=== PATIENT | male | born 1965 | race Caucasian/White ===

== ENCOUNTER 2018-05-13 14:54 | Emergency (ER) | payer OTHER ==
[2018-05-13 15:07] VITALS: BMI 19.5
--- NOTE | 2018-05-13 15:09 | PDOC ---
Rapid Medical Evaluation Chief Complaint: Pain Time Seen by Provider: 05/13/18 15:03 Medical Evaluation: Allergies Allergy/AdvReac Type Severity Reaction Status Date / Time aspirin Allergy Unknown Verified 05/13/18 15:03 phenobarbital Allergy Unknown Verified 05/13/18 15:03 05/13/18 15:06 Pt c/o: abdominal pain, hx colitis, no diarrhea, no fever, states "white cells are bad" pt on exam: vss, no abd pain, appears intoxicated, Pt ordered for: cbc, comp, lipase, mag, ua pt to proceed to the ED Discharge Disposition - Diagnosis Abdominal pain - Referrals - Patient Instructions - Post Discharge Activity
[2018-05-13 16:56] LABS: BASO % 0.7 % (0-2.0); EOS % 1.7 % (0-4.5); HEMATOCRIT 36.1 % (35.4-49); HEMOGLOBIN 12.3 GM/dL (11.7-16.9); LYMPH % 30.9 % (8-40); MCH 32.6 pg (25.7-33.7); MCHC 34.2 g/dl (32.0-35.9); MEAN CELL VOLUME 95.4 fl (80-96); MEAN PLT VOLUME 7.5 fl (7.5-11.1); NEUT % 57.7 % (42.8-82.8); PLATELET COUNT 282 K/MM3 (134-434); RBC 3.78 M/mm3 (4.00-5.60); RDW 12.9 % (11.9-15.9); WHITE BLOOD COUNT 8.5 K/mm3 (4.0-10.0)
[2018-05-13 17:22] LABS: ALBUMIN 3.2 g/dl (3.4-5.0); ANION GAP 10 MMOL/L (8-16); BILIRUBIN,TOTAL 0.5 mg/dL (0.2-1.0); BLOOD UREA NITROGEN 6 mg/dL (7-18); CALCIUM 8.3 mg/dL (8.5-10.1); CHLORIDE 101 mmol/L (98-107); CO2 28 mmol/L (21-32); CREATININE 0.6 mg/dL (0.7-1.3); GLUCOSE,RANDOM 96 mg/dL (74-106); LIPASE 58 U/L (73-393); MAGNESIUM 2.9 mg/dL (1.8-2.4); POTASSIUM 3.9 mmol/L (3.5-5.1); SGOT/AST 38 U/L (15-37); SGPT/ALT 40 U/L (12-78); SODIUM 139 mmol/L (136-145); TOT PROT 6.6 g/dl (6.4-8.2)
[2018-05-13 17:23] LABS: ALK PHOS 82 U/L (45-117)
[2018-05-13] MEDS ORDERED: FOLIC ACID INJECTION - 1 MG, THIAMINE HCL 100 MG, MULTIVIT INJECTION ADULT 10 ML in SOD... IVPB ONE (17:31)
[2018-05-13] MEDS ORDERED: ALBUTEROL SO4 2.5/IPRATROPIUM 0.5 INH SOL 3 ML VIAL.NEB. NEB ONE ×2 (17:31→17:40)
--- NOTE | 2018-05-13 17:38 | PDOC ---
History of Present Illness - General History Source: Patient, Old Records Exam Limitations: No Limitations - History of Present Illness Initial Comments: 05/13/18 18:25 The patient is a 52 year old male, with a significant past medical history of COPD, enlarged liver, colitis, and ETOH abuse, who presents to the ED complaining of abdominal pain and concerned of his enlarged liver. He notes that he was recently at [facility] for the same issue and has had multiple visits there as per patient. He notes that he had 3 beers today. He also notes that he wants to go to detox but does not want to go to the detox center at [facility] or [facility]. He states that his boss is friends with Dr. Pipe Roy and that his boss called Dr. Roy to see if Dr. Roy would take him under his service of he is admitted. The patient denies chest pain, shortness of breath, headache and dizziness. Denies fever, chills, nausea, vomiting, diarrhea or constipation. Denies dysuria , frequency, urgency and hematuria. Allergies: None Past surgical history: Bilateral hernia repair Social History: Alcohol abuse. Cigarette use (10 daily) <Jacob Keene - Last Filed: 05/13/18 18:25> <Nell Rosas - Last Filed: 05/13/18 19:27> - General Chief Complaint: Pain Stated Complaint: PAIN Time Seen by Provider: 05/13/18 15:03 Past History <Jacob Keene - Last Filed: 05/13/18 18:25> - Past Medical History COPD: Yes GI Disorders: Yes (colitis, enlarged liver) - Surgical History Abdominal Surgery: Yes (hernia bilat) - Suicide/Smoking/Psychosocial Hx Smoking History: Current every day smoker Have you smoked in the past 12 months: Yes Number of Cigarettes Smoked Daily: 10 Information on smoking cessation initiated: Yes 'Breaking Loose' booklet given: 05/13/18 Hx Alcohol Use: Yes (daily) Drug/Substance Use Hx: No Substance Use Type: Alcohol <Nell Rosas - Last Filed: 05/13/18 19:27> - Past Medical History Allergies/Adverse Reactions: Allergies Allergy/AdvReac Type Severity Reaction Status Date / Time aspirin Allergy Unknown Verified 05/13/18 15:03 phenobarbital Allergy Unknown Verified 05/13/18 15:03 Home Medications: Ambulatory Orders Albuterol Sulfate Inhaler - [Ventolin HFA Inhaler -] 1 - 2 inh PO QID PRN #1 inhaler 05/13/18 Azithromycin [Zithromax 250mg Tablets -] 250 mg PO UTDICT #6 tab 05/13/18 Prednisone [Deltasone] 40 mg PO DAILY #8 tablet 05/13/18 Review of Systems - Review of Systems Able to Perform ROS?: Yes Comments:: 05/13/18 18:25 GENERAL/CONSTITUTIONAL: No fever or chills. No weakness. HEAD, EYES, EARS, NOSE AND THROAT: No change in vision. No ear pain or discharge. No sore throat. GASTROINTESTINAL: (+) Abdominal pain. No nausea, vomiting, diarrhea or constipation. GENITOURINARY: No dysuria, frequency, or change in urination. CARDIOVASCULAR: No chest pain or shortness of breath. RESPIRATORY: No cough, wheezing, or hemoptysis. MUSCULOSKELETAL: No joint or muscle swelling or pain. No neck or back pain. SKIN: No rash NEUROLOGIC: No headache, vertigo, loss of consciousness, or change in strength/ sensation. ENDOCRINE: No increased thirst. No abnormal weight change. HEMATOLOGIC/LYMPHATIC: No anemia, easy bleeding, or history of blood clots. ALLERGIC/IMMUNOLOGIC: No hives or skin allergy. <Jacob Keene - Last Filed: 05/13/18 18:25> *Physical Exam - Vital Signs Last Vital Signs Temp Pulse Resp BP Pulse Ox 98.9 F 88 18 102/67 100 05/13/18 15:05 05/13/18 15:05 05/13/18 15:05 05/13/18 15:05 05/13/18 15:05 - Physical Exam Comments: 05/13/18 18:30 Constitutional: Awake, alert, oriented. No acute distress. Head: Normocephalic. Atraumatic Eyes: PERRL. EOMI. Conjunctivae are not pale. ENT: (+) Bad Dentician. Mucous membranes are moist and intact. Posterior pharynx without exudates or erythema. Uvula midline. Neck: Supple. Full ROM. No lymphadenopathy. Cardiovascular: Regular rate. Regular rhythm. S1, S2 regular. Distal pulses are 2+ and symmetric. Pulmonary/Chest: (+) Coarse breath sounds. No evidence of respiratory distress. Abdominal: (+) Palpable liver 2cm below ribs. Soft and non-distended. There is no tenderness. No rebound, guarding or rigidity. No organomegaly. Good bowel sounds. Back: No CVA tenderness. Musculoskeletal: No edema. No cyanosis. No clubbing. Full range of motion in all extremities. Nocalf tenderness. Radial/pedal pulses are intact and 2+ bilaterally Skin: Skin is warm and dry. No petechiae. No purpura. Neurological: Alert and oriented to person, place, and time. Cranial nerves II -XII are grossly intact. Normal speech. Strength is grossly symmetric. No sensory deficits. Psychiatric: Good eye contact. Normal interaction, affect and behavior. <Jacob Keene - Last Filed: 05/13/18 18:25> - Vital Signs Last Vital Signs Temp Pulse Resp BP Pulse Ox 98.9 F 88 18 102/67 100 05/13/18 15:05 05/13/18 15:05 05/13/18 15:05 05/13/18 15:05 05/13/18 15:05 <Nell Rosas - Last Filed: 05/13/18 19:27> ED Treatment Course - LABORATORY CBC & Chemistry Diagram: 05/13/18 17:40 05/13/18 16:33 - ADDITIONAL ORDERS Additional order review: Laboratory Results 05/13/18 05/13/18 17:40 16:33 Sodium 139 Potassium 3.9 Chloride 101 Carbon Dioxide 28 Anion Gap 10 BUN 6 L Creatinine 0.6 L Creat Clearance w eGFR > 60 Random Glucose 96 D Calcium 8.3 L Magnesium 2.9 H Total Bilirubin 0.5 AST 38 H D ALT 40 D Alkaline Phosphatase 82 Total Protein 6.6 Albumin 3.2 L Lipase 58 L Alcohol, Quantitative 43.88 H* 05/13/18 05/13/18 17:40 16:33 RBC 3.72 L 3.78 L MCV 96.5 H 95.4 MCHC 33.4 34.2 RDW 13.0 12.9 MPV 6.9 L 7.5 Neutrophils % 56.5 57.7 Lymphocytes % 31.9 30.9 D Monocytes % 9.0 9.0 Eosinophils % 2.1 1.7 Basophils % 0.5 0.7 - Medications Given in the ED: ED Medications Discontinued Medications Generic Name Dose Route Start Last Admin Trade Name Katia PRN Reason Stop Dose Admin Albuterol/Ipratropium 1 amp 05/13/18 17:31 05/13/18 17:49 Duoneb - NEB 05/13/18 17:32 1 amp ONCE ONE Administration <YeceniaJacobchioma Banda - Last Filed: 05/13/18 18:25> - LABORATORY CBC & Chemistry Diagram: 05/13/18 17:40 05/13/18 16:33 - ADDITIONAL ORDERS Additional order review: Laboratory Results 05/13/18 16:33 Sodium 139 Potassium 3.9 Chloride 101 Carbon Dioxide 28 Anion Gap 10 BUN 6 L Creatinine 0.6 L Creat Clearance w eGFR > 60 Random Glucose 96 D Calcium 8.3 L Magnesium 2.9 H Total Bilirubin 0.5 AST 38 H D ALT 40 D Alkaline Phosphatase 82 Total Protein 6.6 Albumin 3.2 L Lipase 58 L 05/13/18 16:33 RBC 3.78 L MCV 95.4 MCHC 34.2 RDW 12.9 MPV 7.5 Neutrophils % 57.7 Lymphocytes % 30.9 D Monocytes % 9.0 Eosinophils % 1.7 Basophils % 0.7 <Nell Rosas - Last Filed: 05/13/18 19:27> Medical Decision Making - Medical Decision Making 05/13/18 17:34 52yo male with alcohol use today presenting for alcohol detox and concern for alcoholic liver disease -also with a dry cough -Dr. Roy is Pulm for COPD -drank beers today -pt states he doesn't have a place to go -no abd pain -lungs with coarse bs -will give nebs for copd, will give banana bag -will obtain RUQ ultrasound and cxr -will discuss with Dr. Roy 05/13/18 19:22 pt feeling better requests to be discharged so he can go to detox at [facility]. offered detox at [facility], but pt states his step daughter works at [facility] [employer] and wants to go there case discussed with Dr. Roy who will see the paitent as an outpt will give gi for further eval of hepatomegaly discussed need to stop drinking will give steroids, azithro, albuterol [facility] d[facility] no coughing at this time pt stable for d/c to home <Nell Rosas - Last Filed: 05/13/18 19:27> *DC/Admit/Observation/Transfer - Attestations Scribe Attestion: 05/13/18 18:31 Documentation prepared by Jacob Keene, acting as medical cash poster for Nell Rosas DO <Jacob Keene - Last Filed: 05/13/18 18:25> - Discharge Dispostion Decision to Admit order: No - Attestations Physician Attestion: 05/13/18 19:26 I, Dr. Nell Rosas, DO, attest that this document has been prepared under my direction and personally reviewed by me in its entirety. I further attest, that it accurately reflects all work, treatment, procedures and medical decision -making performed by me. <Nell Rosas - Last Filed: 05/13/18 19:27> Diagnosis at time of Disposition: Abdominal pain, Hepatomegaly, COPD exacerbation, Alcohol use disorder - Discharge Dispostion Disposition: HOME Condition at time of disposition: Stable - Prescriptions Prescriptions: Albuterol Sulfate Inhaler - [Ventolin HFA Inhaler -] 1 - 2 inh PO QID PRN #1 inhaler PRN Reason: Shortness Of Breath Azithromycin [Zithromax 250mg Tablets -] 250 mg PO UTDICT #6 tab Prednisone [Deltasone] 40 mg PO DAILY #8 tablet - Referrals Referrals: He Kam DO [Staff Physician] - Pipe Roy MD [Staff Physician] - - Patient Instructions Printed Discharge Instructions: DI for Alcohol Abuse, DI for Chronic Obstructive Pulmonary Disease Additional Instructions: Please make an appointment to see both the electrode turner and finisher and the setter induction heating equipment. Please take all medications as prescribed. Please return to the ED with any further concerns or complaints. Please go to detox and stop drinking alcohol.
[2018-05-13 17:47] LABS: BASO % 0.5 % (0-2.0); EOS % 2.1 % (0-4.5); HEMATOCRIT 35.9 % (35.4-49); LYMPH % 31.9 % (8-40); MCH 32.2 pg (25.7-33.7); MCHC 33.4 g/dl (32.0-35.9); MEAN CELL VOLUME 96.5 fl (80-96); MEAN PLT VOLUME 6.9 fl (7.5-11.1); NEUT % 56.5 % (42.8-82.8); PLATELET COUNT 261 K/MM3 (134-434); RBC 3.72 M/mm3 (4.00-5.60); WHITE BLOOD COUNT 7.8 K/mm3 (4.0-10.0)
[2018-05-13] MEDS ORDERED: predniSONE 20 MG TABLET (UD) PO ONE (19:21)
[2018-05-13] MEDS ORDERED: AZITHROMYCIN 250 MG TABLET PO ONE (19:21)
[2018-05-13] MEDS ORDERED: AZITHROMYCIN 250 MG TABLET ONE (19:31)
[2018-05-13] MEDS ORDERED: predniSONE 20 MG TABLET (UD) ONE (19:31)
[2018-05-13 19:44] VITALS: BP 132/85; PULSE 86; TEMP 98.1
== END 2018-05-13 19:48 | disposition home or self-care (01) ==
LOC: JER 14:54
PROC: 3E0F7GC Introduction of Other Therapeutic Substance into Respiratory Tract, Via Natural or Artificial Opening (ICD-10-PCS; principal; 2018-05-13)
DX: J44.1 Chronic obstructive pulmonary disease with (acute) exacerbation (principal); R16.0 Hepatomegaly, not elsewhere classified; F10.10 Alcohol abuse, uncomplicated; F17.210 Nicotine dependence, cigarettes, uncomplicated; Z87.19 Personal history of other diseases of the digestive system; Y90.2 Blood alcohol level of 40-59 mg/100 ml
CPT/HCPCS: 36415; 71045-TC-FY; 76705-TC; 80053; 80307; 83690; 83735; 85025; 99283-25; J7030; J7620

== ENCOUNTER 2018-10-06 21:05 | Emergency (ER) | payer OTHER ==
--- NOTE | 2018-10-06 21:30 | PDOC ---
Rapid Medical Evaluation Time Seen by Provider: 10/06/18 21:25 Medical Evaluation: Allergies Allergy/AdvReac Type Severity Reaction Status Date / Time aspirin Allergy Unknown Verified 05/13/18 15:03 phenobarbital Allergy Unknown Verified 05/13/18 15:03 10/06/18 21:25 I have performed a brief in-person evaluation of this patient. The patient presents with a chief complaint of: Bleeding from nose, ears, also bleeding with urination and defecation. Pt is undomiciled, drinks a 12 pack a day. Also co mild chest tightness Pertinent physical exam findings: Diffuse bruising on upper extremities, pitichiae on upper extremties. (+)bruising inside the mouth. I have ordered the following: CBC, CMP, lytes, PT/PTT, type and screen, cardiac profile The patient will proceed to the ED for further evaluation 10/06/18 21:32 Discharge Disposition - Diagnosis Bleeding - Referrals - Patient Instructions - Post Discharge Activity
[2018-10-06 21:31] VITALS: TEMP 98.5; BMI 19.5
--- NOTE | 2018-10-06 21:45 | PDOC ---
Attending Attestation - HPI HPI: 10/06/18 22:23 The patient is a 53 year old male, with a significant past medical history of COPD, enlarged liver, colitis, and ETOH abuse, who presents to the emergency department with bleeding out of all orifices, with his most recent episode being yesterday. The patient is seeking alcohol detox. The patient reports his last drink was 4 hours ago. Patient went to [facility] and was discharged. The patient is unable to go to [facility]. Allergies: Aspirin, Phenobarbital Past surgical history: Bilateral hernia repair Social history: Reports alcohol use and tobacco use (10 cigarettes a day). - Physicial Exam PE: 10/06/18 22:23 Agrees with resident exam. <Anupama Garcia - Last Filed: 10/06/18 22:23> - Resident Resident Name: Junior Gaming - ED Attending Attestation I have performed the following: I have examined & evaluated the patient, The case was reviewed & discussed with the resident, I agree w/resident's findings & plan - Medical Decision Making 10/07/18 01:08 53-year-old male stating he was concerned he might be bleeding from his nose and rectum now states he was interested in detox but the ambulance would not bring him to [facility] Patient given Ativan 2 mg IV due to tremulousness There are no signs of bleeding at this time He'll be allowed to stay in the emergency department over night due to weather conditions and homelessness 10/07/18 01:10 <Berkley Kim - Last Filed: 10/07/18 01:10> Attestations - Attestations 10/06/18 22:24 Documentation prepared by Anupama Garcia, acting as emergency medical service manager for Berkley Kim DO, MD <Anupama Garcia - Last Filed: 10/06/18 22:23>
[2018-10-06] MEDS ORDERED: ALBUTEROL SO4 2.5/IPRATROPIUM 0.5 INH SOL 3 ML VIAL.NEB. NEB ONE ×2 (22:20→23:03)
--- NOTE | 2018-10-06 22:24 | PDOC ---
History of Present Illness - General Chief Complaint: Rectal Bleed Stated Complaint: SOB Time Seen by Provider: 10/06/18 21:25 History Source: Patient Exam Limitations: No Limitations - History of Present Illness Initial Comments: 10/06/18 22:23 Patient is a 53M with history of alcohol abuse, COPD, enlarged liver coming in today complaining of blood coming from his nose, ears, mouth and rectum. This started yesterday. Patient is unsure of how much blood came out today. Patient states that he had some bright red blood per rectum today and yesterday. Patient states that his last drink was 4 hours prior to arrival, and that he was trying to go to [facility] for a detox program. He states that he does not want to go to [facility]. Past History - Past Medical History Allergies/Adverse Reactions: Allergies Allergy/AdvReac Type Severity Reaction Status Date / Time aspirin Allergy Unknown Verified 05/13/18 15:03 phenobarbital Allergy Unknown Verified 05/13/18 15:03 Home Medications: Ambulatory Orders Albuterol Sulfate Inhaler - [Ventolin HFA Inhaler -] 1 - 2 inh PO QID PRN #1 inhaler 05/13/18 Azithromycin [Zithromax 250mg Tablets -] 250 mg PO UTDICT #6 tab 05/13/18 Prednisone [Deltasone] 40 mg PO DAILY #8 tablet 05/13/18 COPD: Yes GI Disorders: Yes (colitis, enlarged liver) - Surgical History Abdominal Surgery: Yes (hernia bilat) - Suicide/Smoking/Psychosocial Hx Smoking History: Never smoked Have you smoked in the past 12 months: No Number of Cigarettes Smoked Daily: 10 Information on smoking cessation initiated: No 'Breaking Loose' booklet given: 05/13/18 Hx Alcohol Use: Yes Drug/Substance Use Hx: No Substance Use Type: Alcohol Review of Systems - Review of Systems Comments:: 10/06/18 22:28 GENERAL/CONSTITUTIONAL: No fever or chills. No weakness. HEAD, EYES, EARS, NOSE AND THROAT: No change in vision. No sore throat. CARDIOVASCULAR: No chest pain or shortness of breath RESPIRATORY: No cough, wheezing, or hemoptysis. GASTROINTESTINAL: No nausea, vomiting, diarrhea or constipation. GENITOURINARY: No dysuria, frequency, or change in urination. MUSCULOSKELETAL: No joint or muscle swelling or pain. No neck or back pain. SKIN: No rash NEUROLOGIC: No headache, vertigo, loss of consciousness, or change in strength/ sensation. ALLERGIC/IMMUNOLOGIC: No hives or skin allergy. *Physical Exam - Vital Signs Last Vital Signs Temp Pulse Resp BP Pulse Ox 98.5 F 95 H 19 103/80 96 10/06/18 21:27 10/06/18 21:27 10/06/18 21:27 10/06/18 21:27 10/06/18 21:27 - Physical Exam Comments: 10/06/18 22:29 GENERAL: Awake, alert, and fully oriented, in no acute distress RECTAL: No blood, hemorrhoid, normal tone, brown stool HEAD: No signs of trauma, normocephalic, atraumatic EYES: PERRLA, EOMI, sclera anicteric, conjunctiva clear ENT: Auricles normal inspection, hearing grossly normal, nares patent, oropharynx clear without exudates. Moist mucosa NECK: Normal ROM, supple, no lymphadenopathy, JVD, or masses LUNGS: No distress, speaks full sentences, clear to auscultation bilaterally HEART: Regular rate and rhythm, normal S1 and S2, no murmurs, rubs or gallops, peripheral pulses normal and equal bilaterally. ABDOMEN: Soft, nontender, normoactive bowel sounds. No guarding, no rebound. No masses EXTREMITIES: Normal inspection, Normal range of motion, no edema. No clubbing or cyanosis. NEUROLOGICAL: Cranial nerves II through XII grossly intact. Normal speech, normal gait, no focal sensorimotor deficits. Tremulous SKIN: Warm, Dry, multiple skin excoriations Moderate Sedation - Procedure Monitoring Vital Signs: Procedure Monitoring Vital Signs Temperature 98.5 F 10/06/18 21:27 Pulse Rate 95 H 10/06/18 21:27 Respiratory Rate 19 10/06/18 21:27 Blood Pressure 103/80 10/06/18 21:27 O2 Sat by Pulse Oximetry (%) 96 10/06/18 21:27 ED Treatment Course - LABORATORY CBC & Chemistry Diagram: 10/06/18 23:12 10/06/18 23:12 Medical Decision Making - Medical Decision Making 10/06/18 22:31 Patient is 53M with history of copd, enlarged liver, etoh abuse here today with complaints of mucosal bleeding. Tremulous on exam. Does not wish to go to detox. No blood noted in ears, mouth, nose, rectal. Will workup for bleeding. Given ativan for tremors. Given duoneb for wheezing on exam. Patient states that he picks his skin chronically, which is why he has multiple scrathces on his body. 10/07/18 01:26 CBC normal. CMP normal. Lungs clear after duoneb. Trace blood in stool, consistent with hemorrhoid. Patient states that he is homeless and has no place to go. Low tonight is 2 degrees F with winds greater than 20mph. Will observe until morning. No longer tremulous. 10/07/18 06:10 CXR clear, will discharge home. *DC/Admit/Observation/Transfer Diagnosis at time of Disposition: Alcohol dependence - Discharge Dispostion Disposition: HOME Condition at time of disposition: Good Decision to Admit order: No - Referrals - Patient Instructions Printed Discharge Instructions: DI for Hemorrhoids Additional Instructions: Please return if you have any new, worsening or concerning symptoms. Please go to detox as planned. If you wish, you may go to detox at [facility]. - Post Discharge Activity
[2018-10-06] MEDS ORDERED: LORazepam 2 MG/ML SDV VIAL ONE (23:03)
[2018-10-06 23:32] LABS: BASO % 0.8 % (0-2.0); EOS % 2.5 % (0-4.5); HEMATOCRIT 36.9 % (35.4-49); HEMOGLOBIN 12.7 GM/dL (11.7-16.9); LYMPH % 25.6 % (8-40); MCH 32.1 pg (25.7-33.7); MCHC 34.4 g/dl (32.0-35.9); MEAN CELL VOLUME 93.4 fl (80-96); MEAN PLT VOLUME 6.7 fl (7.5-11.1); MONO % 8.4 % (3.8-10.2); NEUT % 62.7 % (42.8-82.8); PLATELET COUNT 318 K/MM3 (134-434); RBC 3.96 M/mm3 (4.00-5.60); RDW 12.8 % (11.9-15.9); WHITE BLOOD COUNT 7.7 K/mm3 (4.0-10.0)
[2018-10-07 00:15] LABS: ALBUMIN 3.4 g/dl (3.4-5.0); ALK PHOS 112 U/L (45-117); ANION GAP 9 MMOL/L (8-16); BILIRUBIN,TOTAL 0.2 mg/dL (0.2-1); BLOOD UREA NITROGEN 8 mg/dL (7-18); CALCIUM 8.1 mg/dL (8.5-10.1); CHLORIDE 93 mmol/L (98-107); CO2 30 mmol/L (21-32); CREATININE 0.6 mg/dL (0.55-1.3); GLUCOSE,RANDOM 80 mg/dL (74-106); LIPASE 149 U/L (73-393); MAGNESIUM 2.6 mg/dL (1.8-2.4); PHOSPHOROUS 4.2 mg/dL (2.5-4.9); POTASSIUM 4.3 mmol/L (3.5-5.1); SGOT/AST 32 U/L (15-37); SGPT/ALT 34 U/L (13-61); SODIUM 131 mmol/L (136-145); TOT PROT 6.6 g/dl (6.4-8.2)
[2018-10-07 00:29] LABS: INR 1.07 (0.83-1.09); PROTHROMBIN TIME (PATIENT) 12.6 SEC (9.7-13.0)
[2018-10-07 06:28] VITALS: BP 124/53; PULSE 76
--- NOTE | 2018-10-07 14:56 | EKG ---
Test Reason : Blood Pressure : / mmHG Vent. Rate : 099 BPM Atrial Rate : 099 BPM P-R Int : 132 ms QRS Dur : 078 ms QT Int : 340 ms P-R-T Axes : 072 060 062 degrees QTc Int : 436 ms NORMAL SINUS RHYTHM NORMAL ECG WHEN COMPARED WITH ECG OF 19-MAR-2018 23:17, NO SIGNIFICANT CHANGE WAS FOUND Confirmed by XOCHITL PEREZ MD ([id number]) on 10/07/2018 2:55:48 PM Referred By: Confirmed By:XOCHITL PEREZ MD
== END 2018-10-07 06:57 | disposition home or self-care (01) ==
LOC: JER 21:05
PROC: 3E0F7GC Introduction of Other Therapeutic Substance into Respiratory Tract, Via Natural or Artificial Opening (ICD-10-PCS; principal; 2018-10-06)
PROC: 3E033NZ Introduction of Analgesics, Hypnotics, Sedatives into Peripheral Vein, Percutaneous Approach (ICD-10-PCS; 2018-10-06)
DX: F10.20 Alcohol dependence, uncomplicated (principal); K64.9 Unspecified hemorrhoids; J44.9 Chronic obstructive pulmonary disease, unspecified; F42.4 Excoriation (skin-picking) disorder
CPT/HCPCS: 36415; 71045-TC-FY; 80053; 82272; 82550; 83690; 83735; 84100; 84484; 85025; 85610; 86850; 86900; 86901; 93005; 93010; 94640; 96374; 99282-25

== ENCOUNTER 2018-11-02 00:18 | Inpatient (IN) | payer OTHER ==
--- NOTE | 2018-11-02 00:45 | PDOC ---
History of Present Illness - General Chief Complaint: Alcohol intoxication Stated Complaint: ABDOMINAL PAIN - History of Present Illness Initial Comments: 11/02/18 01:12 53 yo male with PMH COPD (no home O2), enlarged liver?, Anemia, Alcohol abuse presents with 2 weeks of abdominal pain which he states began on the left side and has now spread to the across the middle to the right side. Over that time he states that he has had some episodes of diarrhea. 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 He also endorses some worsening shortness of breath over the last week and states he has some yellow sputum, though he endorses that yellow sputum is chronic and not a new complaint. He did have one episode a few days ago which he states was slightly blood tinged but has not had any blood in his sputum since. Denies any fevers, though states he always feels cold likely due to his chronic anemia. He does appear mildly intoxicated and endorses his last drink was earlier today. He admits to three tall cans of Budweiser which he states is well below his normal which is usually closer to 14. Past History - Travel Traveled outside of the country in the last 30 days: No - Past Medical History Allergies/Adverse Reactions: Allergies Allergy/AdvReac Type Severity Reaction Status Date / Time aspirin Allergy Unknown Verified 11/02/18 00:34 phenobarbital Allergy Unknown Verified 11/02/18 00:34 Home Medications: Ambulatory Orders Unobtainable 11/02/18 COPD: Yes GI Disorders: Yes (colitis, enlarged liver) - Surgical History Abdominal Surgery: Yes (hernia bilat) - Immunization History TDAP Vaccination: Yes Immunization Up to Date: Yes - Suicide/Smoking/Psychosocial Hx Smoking History: Never smoked Have you smoked in the past 12 months: No Number of Cigarettes Smoked Daily: 10 'Breaking Loose' booklet given: 05/13/18 Hx Alcohol Use: Yes Drug/Substance Use Hx: No Substance Use Type: Alcohol Review of Systems - Review of Systems Able to Perform ROS?: Yes Constitutional: Yes: Chills. No: Fever, Night Sweats, Weakness HEENTM: No: Blurred Vision Respiratory: Yes: Cough, Shortness of Breath, SOB with Exertion. No: Orthopnea Cardiac (ROS): No: Chest Pain, Edema, Lightheadedness ABD/GI: Yes: Diarrhea. No: Abdominal Distended, Rectal Bleeding, Vomiting, Tarry Stools *Physical Exam - Vital Signs Last Vital Signs Temp Pulse Resp BP Pulse Ox 98.4 F 96 H 18 120/76 96 11/02/18 00:22 11/02/18 00:22 11/02/18 00:22 11/02/18 00:22 11/02/18 00:22 - Physical Exam Comments: 11/02/18 01:21 GEN: A&O, no acute distress HEENT: moist mucus membranes, no exudates NECK: Supple, no lymphadenopathy HEART: RRR, no murmurs noted LUNGS: mild expiratory wheezes noted ABDOMEN: Soft, mildly tender to palpation in LLQ, erythematous small papules diffusely (pt states since 2011), normoactive bowel sounds EXTREMITIES: no peripheral edema, no calf tenderness Moderate Sedation - Procedure Monitoring Vital Signs: Procedure Monitoring Vital Signs Temperature 98.4 F 11/02/18 00:22 Pulse Rate 96 H 11/02/18 00:22 Respiratory Rate 18 11/02/18 00:22 Blood Pressure 120/76 11/02/18 00:22 O2 Sat by Pulse Oximetry (%) 96 11/02/18 00:22 ED Treatment Course - LABORATORY CBC & Chemistry Diagram: 11/02/18 01:44 11/02/18 01:44 Medical Decision Making - Medical Decision Making 11/02/18 01:22 53 yo male with PMH COPD, alcohol abuse, enlarged liver? presents with 2 weeks abdominal pain with some associated diarrhea, as well as SOB and cough without relief from Symbicort and Albuterol rescue inhaler. DuoNebs, CBC, CMP, Noncontrast CT Abdomen pending, Banana bag 11/02/18 02:47 WBC count noted 14, pt afebrile at this time, however with complaint of cough will get plain film of the chest PA/Lat. CT scan pending prelim read 11/02/18 04:[address] read: Probable Acute diverticulitis in the sigmoid colon with possible phlegmon surrounding inflamed diverticulum. Levaquin/Flagyl Discussed with hospitalist for admission *DC/Admit/Observation/Transfer Diagnosis at time of Disposition: Diverticulitis large intestine - Discharge Dispostion Condition at time of disposition: Stable Decision to Admit order: Yes - Referrals - Patient Instructions - Post Discharge Activity
[2018-11-02] MEDS ORDERED: FOLIC ACID INJECTION - 1 MG, THIAMINE HCL 100 MG, MULTIVIT INJECTION ADULT 10 ML in SOD... IVPB ONE (01:32)
[2018-11-02] MEDS ORDERED: ALBUTEROL SO4 2.5/IPRATROPIUM 0.5 INH SOL 3 ML VIAL.NEB. NEB ONE ×4 (01:33→02:51)
--- NOTE | 2018-11-02 01:43 | PDOC ---
Attending Attestation - HPI HPI: 11/02/18 01:43 The patient is a 53 year old male, with a significant PMH of alcoholism (14 budweiser/day, COPD, and enlarged liver, who presents to the emergency room complaining of 2 weeks abdominal pain that started at the LLQ and has moved to the RLQ. The patient also notes associated diarrhea and worsening SOB. He notes a chronic smokers cough producing yellow phlegm. Patient denies fever but complains of being cold. Allergies: aspirin, phenobarbital Social history: EtOH (14 budweiser/day) <Rashmi Winston - Last Filed: 11/02/18 01:43> - Resident Resident Name: Bienvenido Sears - ED Attending Attestation I have performed the following: I have examined & evaluated the patient, The case was reviewed & discussed with the resident, I agree w/resident's findings & plan - Physicial Exam PE: 11/02/18 03:38 Agree with resident exam - Medical Decision Making 11/02/18 02:19 Pt has a WBC of 14.7 11/02/18 03:01 Pt has diverticulitis and a phlegmon 11/02/18 03:03 Patient Name: SHANDA CORTES THIS IS A PRELIMINARY REPORT FROM [facility] DATE OF SERVICE: 2018-11-02 02:22:10 IMAGES: 375 EXAM: CT ABDOMEN AND PELVIS WITHOUT CONTRAST Probable acute diverticulitis sigmoid colon with a possible phlegmon surrounding the inflamed diverticulum. Advise followup. No discrete abscsess. No bowel obstruction, free fluid or free air. Normal appendix. No nephrolithiasis, ureterolithiasis or obstructive uropathy. No bladder calculi. Unremarkable pancreas and gallbladder. Portion of bladder projects into shallow left inguinal region hernia that also contains fat. Small bowel loops project into a small right inguinal region hernia that also contains fat. 1.3 cm hypodensity right lower quadrant abdominal wall, possibly an epidermal cyst or other skin-based lesion. Emphysematous changes lung bases. 11/02/18 03:24 Pt will be admitted for IV abx levaquin and flagyl. Pt is an alcohol abuser who will require admission for IV treatment and further eval. 11/02/18 03:38 Pt has hyponatremia. 11/02/18 04:50 Pt received a banana bag 11/02/18 06:33 Pt is stable; awaiting upstairs bed <Asia Ventura - Last Filed: 11/02/18 06:33> Heart Score/ECG Review - ECG Intrepretation Rhythm: Regular Rhythm - Norton Norton: Normal - P and WV Prominent R with upright T in V1 (true posterior FL): No Delta Wave(s) Present: No WPW: No - QRS Poor R Wave Progression: No Q Wave Present: No - ST and T Early Repolarization: No Non Specific ST-T Wave changes: No - ECG Impressions Tachycardia: Sinus Torsades jose Pointes: No WPW: No <Asia Ventura - Last Filed: 11/02/18 06:33> Attestations - Attestations 11/02/18 01:43 Documentation prepared by Rashmi Winston, acting as medical territory manager for Asia Ventura MD. <Rashmi Winston - Last Filed: 11/02/18 01:43>
[2018-11-02 01:51] LABS: BASO % 0.9 % (0-2.0); EOS % 1.3 % (0-4.5); HEMOGLOBIN 14.1 GM/dL (11.7-16.9); LYMPH % 15.9 % (8-40); MCHC 34.4 g/dl (32.0-35.9); MEAN CELL VOLUME 93.2 fl (80-96); MEAN PLT VOLUME 6.7 fl (7.5-11.1); MONO % 11.4 % (3.8-10.2); NEUT % 70.5 % (42.8-82.8); PLATELET COUNT 347 K/MM3 (134-434); RDW 12.8 % (11.9-15.9); WHITE BLOOD COUNT 14.7 K/mm3 (4.0-10.0)
[2018-11-02 03:09] LABS: ANION GAP 6 MMOL/L (8-16); BLOOD UREA NITROGEN 4 mg/dL (7-18); CALCIUM 8.6 mg/dL (8.5-10.1); CHLORIDE 91 mmol/L (98-107); CO2 32 mmol/L (21-32); CREATININE 0.6 mg/dL (0.55-1.3); GLUCOSE,RANDOM 89 mg/dL (74-106); POTASSIUM 4.6 mmol/L (3.5-5.1); SODIUM 129 mmol/L (136-145)
[2018-11-02 03:10] LABS: ALBUMIN 3.5 g/dl (3.4-5.0); ALK PHOS 117 U/L (45-117); BILIRUBIN,TOTAL 0.4 mg/dL (0.2-1); SGOT/AST 18 U/L (15-37); SGPT/ALT 23 U/L (13-61); TOT PROT 7.3 g/dl (6.4-8.2)
--- NOTE | 2018-11-02 04:49 | HP ---
CHIEF COMPLAINT: abdominal pain x2 weeks [facility] HISTORY OF PRESENT ILLNESS: 53M w/ pmhx of COPD, alcohol abuse, anemia, fatty liver presented to the ED with 2 week history of abdominal pain. He states the pain started on the L side and travels across the abdomen to the R, but currently he feels it traveling across his abdomen. He denies taking any meds at home for his pain. He reports decreased PO intake due to the pain, but says he was able to eat about 2 days ago. Prior to this, he was unable to eat for about 5 days due to the pain. He reports the pain as intermittent, and aching and cannot ascertain what provokes it. He states that his abd pain does feel better when walking, but says it does not get better after having a bowel movement. He initially complained of several episodes of diarrhea over the past 2 weeks that were watery, but denies bloody or black stools. He has refused a colonoscopy in the past. Pt also admits to acid reflux symptoms, most notably when he eats oranges or drinks milk , but denies taking any meds for this in the past. Of note, his last drink was 12pm yesterday, an 18 oz bottle of beer. He usually drinks about 8- 18 oz cans of beer a day. He states he was last seen in the [facility] this past September 2017, and underwent alcohol detox during his stay there. ER course was notable for: (1) WBC 14.7, Na 129; CTAP showed possible acute sigmoid diverticulitis w/ possible phlegmon (2) IV Levaquin, IV Flagyl, banana bag (3) Recent Travel: Denies PAST MEDICAL HISTORY: COPD Alcohol abuse anemia fatty liver PAST SURGICAL HISTORY: Denies Social History: Smoking: Currently everyday smoker, 5 cigs/day x2 months (used to smoke 1PPD since teenage years) Alcohol: 8- 18 oz beers daily Drugs: Denies Family History: Father of unknown cancer at age 62 Allergies aspirin Allergy (Unknown, Verified 11/02/18 00:34) phenobarbital Allergy (Unknown, Verified 11/02/18 00:34) HOME MEDICATIONS: Home Medications Medication Instructions Recorded Unobtainable 11/02/18 REVIEW OF SYSTEMS CONSTITUTIONAL: Admits to chills; Denies fever, diaphoresis, generalized weakness HEENT: Denies rhinorrhea, nasal congestion, throat pain, throat swelling, difficulty swallowing CARDIOVASCULAR: Denies chest pain, syncope, palpitations, irregular heart rate, lightheadedness, peripheral edema RESPIRATORY: Admits to sob, alonzo; Denies cough, orthopnea, wheezing GASTROINTESTINAL: Admits abdominal pain, diarrhea x1 episode, abdominal distension; Denies nausea, vomiting, constipation GENITOURINARY: Admits to dysuria; Denies frequency, urgency, hesitancy, hematuria MUSCULOSKELETAL: Denies myalgia, arthralgia, joint swelling, back pain, neck pain SKIN: Admits to abd rash HEMATOLOGIC/IMMUNOLOGIC: Absent: easy bleeding, easy bruising, lymphadenopathy, frequent infections NEUROLOGIC: Denies headache, focal weakness or paresthesias, dizziness, unsteady gait, seizure, mental status changes PHYSICAL EXAMINATION Vital Signs - 24 hr 11/02/18 00:22 Temperature 98.4 F Pulse Rate 96 H Respiratory 18 Rate Blood Pressure 120/76 O2 Sat by Pulse 96 Oximetry (%) GENERAL: Awake, alert, and fully oriented, in no acute distress. Thin-appearing , disheveled. CIWA 4. HEENT: AT/NC. EOMI. MOR. Dry mucus membranes. NECK: Normal range of motion, supple without lymphadenopathy, JVD, or masses. LUNGS: Breath sounds equal, clear to auscultation bilaterally. No wheezes, and no crackles. No accessory muscle use. HEART: Tachycardic. Normal S1, S2. No murmurs heard. ABDOMEN: Mild TTP. Mild abd distension, no masses noted. MUSCULOSKELETAL: Normal range of motion at all joints. No bony deformities or tenderness. No CVA tenderness. UPPER EXTREMITIES: 2+ pulses, warm, well-perfused. No cyanosis. No clubbing. No peripheral edema. LOWER EXTREMITIES: 2+ pulses, warm, well-perfused. No calf tenderness. No peripheral edema. NEUROLOGICAL: Normal speech. 5/5 muscle strength in u/l b/l extremities. Laboratory Results - last 24 hr 11/02/18 11/02/18 01:44 01:44 WBC 14.7 H RBC 4.40 Hgb 14.1 Hct 41.0 MCV 93.2 MCH 32.0 MCHC 34.4 RDW 12.8 Plt Count 347 MPV 6.7 L Absolute Neuts (auto) 10.4 H Neutrophils % 70.5 Lymphocytes % 15.9 D Monocytes % 11.4 H Eosinophils % 1.3 Basophils % 0.9 Nucleated RBC % 0 Sodium 129 L Potassium 4.6 Chloride 91 L Carbon Dioxide 32 Anion Gap 6 L BUN 4 L Creatinine 0.6 Creat Clearance w eGFR > 60 Random Glucose 89 Calcium 8.6 Total Bilirubin 0.4 AST 18 ALT 23 Alkaline Phosphatase 117 Total Protein 7.3 Albumin 3.5 CONSULT: Surg- Dr. Mcmanus IMAGING: * CTAP: Acute diverticulitis sigmoid colon w/ possible phlegmon surrounding the inflamed diverticulum. No discrete abscess. No bowel obstruction, free fluid or free air. Normal appendix. * EKG (11/02/18): sinus tachy; HR 114, QTc 449 ms, no ST-T changes ASSESSMENT/PLAN: 53M w/ pmhx of COPD, alcohol abuse, anemia, fatty liver presented to the ED with 2 week history of abdominal pain. #Acute Diverticulitis -CTAP noted above; initial read showed possible acute diverticulitis of sigmoid colo -Levaquin 750 IVPB and Flagyl 500 -NPO/IVf -Pain and nausea control -Surg consult #Hx of Alcohol Abuse; CIWA 4. -Pt's last drink was at 12pm yesterday. Previously underwent alcohol detox last month at [facility], but remains an active daily drinker. -Start CIWA protocol -Cont Thiamine, Folate #Hyponatremia; Na 129 -IVf; avoid overcorrection -Check Uosm, Sosm, Urine Na -recheck BMP #COPD; no acute exacerbation -Duonebs PRN -Albuterol PRN #Prophylaxis -Lovenox 40 QD #FEN -Banana bag given in ED; IVf -recheck BMP in AM (Na) -NPO dispo -admit to med-surg -full code -meds need to be reconciled Visit type - Emergency Visit Emergency Visit: Yes ED Registration Date: 11/02/18 Care time: The patient presented to the Emergency Department on the above date and was hospitalized for further evaluation of their emergent condition. - New Patient This patient is new to me today: Yes Date on this admission: 11/03/18 - Critical Care Critical Care patient: No
--- NOTE | 2018-11-02 05:40 | PN ---
Teaching Attending Note Name of Resident: Seda Alatorre ATTENDING PHYSICIAN STATEMENT I saw and evaluated the patient. I reviewed the resident's note and discussed the case with the resident. I agree with the resident's findings and plan as documented. SUBJECTIVE: Seen and examined; please see resident note for further historical details. In summation patient presents with abdominal pain that has been present for 2 weeks that hasbecome acutely worse; he states it is mostly located on his R- side and that nothing makes it better or worse, hasn't had recent abx, has never had diverticulitis before. No documented hx scope. He has a chronic cough that is unchanged. Recently discharged from [facility] for EtOH detox and started drinking (14-16 cans/day of beer). No sz hx, etc. In the ER he had a CT done which showed signoid diverticulitis with possible phlegmon surrounding the inflamed diverticulum without discrete abscess. Will be admitted to medicine and placed on levaqin and flagyl and have sgy consulted. 10 sys ROS done and negative aside from HPI PMH, PSH, Family hx, Social hx reviewed Medication list reviewed; pending reconciliation OBJECTIVE: VS, labs, imaging reviewed Disheveled; NAD, AAO, resting in bed. CIWA ~4 Tender abdomen and slightly distended with +BS NC AT EOMI PERRLA RRR s1/2 no mgr Lungs CTAB, w/ sym exp CN2-12 wnl, no fnd Normal mood, appropriate behavior ASSESSMENT AND PLAN: Patient presents for abdominal pain found to have acute diverticulitis with possible phlegmon; he has also been noted to be abusing alcohol 1) Acute Diverticulitis -Followup cultres, IV abx lq/metro, consult sgy -NPO, IVF -Pain and nausea control 2) EtOh abuse -Continue CIWA -Thiamine, folate 3) Hyponatremia -Careful with fluids until etiology is ascertained; avoid overcorrection -Check serum/urine osm and urine na -Monitor BID BMP 4) hx COPD -No acute exacerbation -PRN albuterol 5) Leukocytosis -Likely 2/2 #1 Full Code
[2018-11-02 08:36] LABS: BASO % 0.3 % (0-2.0); EOS % 0.2 % (0-4.5); HEMATOCRIT 36.8 % (35.4-49); HEMOGLOBIN 12.6 GM/dL (11.7-16.9); LYMPH % 4.6 % (8-40); MCH 31.7 pg (25.7-33.7); MCHC 34.4 g/dl (32.0-35.9); MEAN CELL VOLUME 92.2 fl (80-96); MEAN PLT VOLUME 7.3 fl (7.5-11.1); MONO % 9.5 % (3.8-10.2); NEUT % 85.4 % (42.8-82.8); PLATELET COUNT 327 K/MM3 (134-434); RBC 3.99 M/mm3 (4.00-5.60); RDW 12.7 % (11.9-15.9); WHITE BLOOD COUNT 18.4 K/mm3 (4.0-10.0)
--- NOTE | 2018-11-02 09:41 | EKG ---
Test Reason : Blood Pressure : / mmHG Vent. Rate : 114 BPM Atrial Rate : 114 BPM P-R Int : 128 ms QRS Dur : 074 ms QT Int : 326 ms P-R-T Axes : 078 060 070 degrees QTc Int : 449 ms SINUS TACHYCARDIA OTHERWISE NORMAL ECG WHEN COMPARED WITH ECG OF 07-OCT-2018 01:38, NO SIGNIFICANT CHANGE WAS FOUND Confirmed by JAKE JEROME MD ([id number]) on 11/02/2018 9:40:54 AM Referred By: Confirmed By:JAKE JEROME MD
[2018-11-02] MEDS: ACETAMINOPHEN 325 MG TABLET (FP) PO PRN (11:11)
[2018-11-02] MEDS: THIAMINE HCL 100 MG TABLET (FP) PO SCH (11:11)
[2018-11-02] MEDS: FOLIC ACID 1 MG TABLET (FP) PO SCH (11:11)
[2018-11-02] MEDS: ENOXAPARIN NA (PORCINE) 40 MG/0.4 ML DISP.SYRIN SQ SCH (11:12)
[2018-11-02] MEDS: ALBUTEROL SO4 2.5/IPRATROPIUM 0.5 INH SOL 3 ML VIAL.NEB. NEB SCH ×3 (11:12→20:10)
--- NOTE | 2018-11-02 11:52 | PN ---
Progress Note, Physician Chief Complaint: Diverticulitis Hyponatremia History of Present Illness: Previous notes and events reviewed awake and alert NAD febrile with oral temp 100.8F continue to complain of abdominal pain with nausea - Current Medication List Current Medications: Active Medications Acetaminophen (Tylenol -) 650 mg PO Q6H PRN PRN Reason: Fever Or Pain Last Admin: 11/02/18 11:11 Dose: 650 mg Albuterol/Ipratropium (Duoneb -) 1 amp NEB RQID [facility] Last Admin: 11/02/18 11:12 Dose: 1 amp Enoxaparin Sodium (Lovenox -) 40 mg SQ DAILY [facility] Last Admin: 11/02/18 11:12 Dose: 40 mg Folic Acid (Folic Acid -) 1 mg PO DAILY [facility] Last Admin: 11/02/18 11:11 Dose: 1 mg Metronidazole (Flagyl 500mg Premixed Ivpb -) 500 mg in 100 mls @ 100 mls/hr IVPB Q8H-IV [facility] Last Admin: 11/02/18 11:12 Dose: 100 mls/hr Levofloxacin (Levaquin 750 Mg Premixed Ivpb -) 750 mg in 150 mls @ 100 mls/hr IVPB DAILY [facility]; Protocol Last Admin: 11/02/18 11:13 Dose: Not Given Thiamine HCl (Vitamin B1 -) 100 mg PO DAILY [facility] Last Admin: 11/02/18 11:11 Dose: 100 mg - Objective Vital Signs: Vital Signs Temperature 98.4 F 11/02/18 00:22 Pulse Rate 125 H 11/02/18 07:52 Respiratory Rate 25 H 11/02/18 07:52 Blood Pressure 133/67 11/02/18 07:52 O2 Sat by Pulse Oximetry (%) 94 L 11/02/18 07:52 Constitutional: Yes: No Distress, Calm Eyes: Yes: Conjunctiva Clear HENT: Yes: Atraumatic Cardiovascular: Yes: Tachycardia Respiratory: Yes: Regular, CTA Bilaterally Gastrointestinal: Yes: Normal Bowel Sounds, Soft, Other (tenderness RLQ and LLQ) Musculoskeletal: Yes: Muscle Weakness Extremities: Yes: WNL Edema: No Neurological: Yes: Alert, Oriented Psychiatric: Yes: Alert, Oriented Labs: CBC, BMP 11/02/18 07:36 Laboratory Results - last 24 hr 02/25/19 02/25/19 02/25/19 01:44 01:44 07:36 WBC 14.7 H 18.4 H RBC 4.40 3.99 L Hgb 14.1 12.6 Hct 41.0 36.8 MCV 93.2 92.2 MCH 32.0 31.7 MCHC 34.4 34.4 RDW 12.8 12.7 Plt Count 347 327 MPV 6.7 L 7.3 L Absolute Neuts (auto) 10.4 H 15.7 H Neutrophils % 70.5 85.4 H D Lymphocytes % 15.9 D 4.6 L D Monocytes % 11.4 H 9.5 Eosinophils % 1.3 0.2 D Basophils % 0.9 0.3 Nucleated RBC % 0 0 Sodium 129 L Potassium 4.6 Chloride 91 L Carbon Dioxide 32 Anion Gap 6 L BUN 4 L Creatinine 0.6 Creat Clearance w eGFR > 60 Random Glucose 89 Serum Osmolality Calcium 8.6 Total Bilirubin 0.4 AST 18 ALT 23 Alkaline Phosphatase 117 Total Protein 7.3 Albumin 3.5 11/02/18 07:36 WBC RBC Hgb Hct MCV MCH MCHC RDW Plt Count MPV Absolute Neuts (auto) Neutrophils % Lymphocytes % Monocytes % Eosinophils % Basophils % Nucleated RBC % Sodium Potassium Chloride Carbon Dioxide Anion Gap BUN Creatinine Creat Clearance w eGFR Random Glucose Serum Osmolality 270 L Calcium Total Bilirubin AST ALT Alkaline Phosphatase Total Protein Albumin - ....Imaging Cat Scan: Report Reviewed <Melinda Marlow - Last Filed: 11/02/18 11:46> - Current Medication List Current Medications: Active Medications Acetaminophen (Tylenol -) 650 mg PO Q6H PRN PRN Reason: Fever Or Pain Last Admin: 11/02/18 11:11 Dose: 650 mg Albuterol/Ipratropium (Duoneb -) 1 amp NEB RQID [facility] Last Admin: 11/03/18 12:34 Dose: 1 amp Chlordiazepoxide HCl (Librium -) 25 mg PO [id number] [facility] Stop: 11/03/18 17:01 Last Admin: 11/03/18 11:31 Dose: 25 mg Chlordiazepoxide HCl (Librium -) 15 mg PO [id number] [facility] Stop: 11/04/18 17:01 Chlordiazepoxide HCl (Librium -) 10 mg PO [id number] [facility] Stop: 11/05/18 17:01 Enoxaparin Sodium (Lovenox -) 40 mg SQ DAILY [facility] Last Admin: 11/03/18 10:22 Dose: 40 mg Folic Acid (Folic Acid -) 1 mg PO DAILY [facility] Last Admin: 11/03/18 11:31 Dose: 1 mg Sodium Chloride (Normal Saline -) 1,000 mls @ 75 mls/hr IV ASDIR [facility] Stop: 11/04/18 11:51 Last Admin: 11/03/18 05:42 Dose: 75 mls/hr Piperacillin Sod/Tazobactam (Sod 3.375 gm/ Dextrose) 50 mls @ 100 mls/hr IVPB Q8H-IV [facility]; Protocol Last Admin: 11/03/18 10:23 Dose: 100 mls/hr Sodium Chloride (Normal Saline -) 1,000 mls @ 75 mls/hr IV ASDIR [facility] Thiamine HCl (Vitamin B1 -) 100 mg PO DAILY [facility] Last Admin: 11/03/18 11:31 Dose: 100 mg - Objective Vital Signs: Vital Signs Temperature 99.5 F 11/03/18 14:08 Pulse Rate 107 H 11/03/18 14:08 Respiratory Rate 16 11/03/18 14:08 Blood Pressure 115/65 11/03/18 14:08 O2 Sat by Pulse Oximetry (%) 95 11/03/18 09:00 Labs: CBC, BMP 11/03/18 06:30 11/03/18 06:30 <Greyson Mccain - Last Filed: 11/03/18 15:16> Problem List - Problems (1) Diverticulitis large intestine Assessment/Plan: -surgery and GI consult placed -A/P CT scan: acute diverticulitis in the mid sigmoid colon without gross extraluminal air identified, suggestion of a small adjacent phlegmon measuring approximately 3cm without evidence of of a drainable abscess -NPO -IVF for hydration Code(s): K57.32 - DVTRCLI OF LG INT W/O PERFORATION OR ABSCESS W/O BLEEDING (2) Abdominal pain Assessment/Plan: -GI and surgery consult placed -NPO -pain management Code(s): R10.9 - UNSPECIFIED ABDOMINAL PAIN (3) Hyponatremia Assessment/Plan: -started on NS at 75cc/hr -most recent Na level 132. will continue to monitor -renal consult placed Code(s): E87.1 - HYPO-OSMOLALITY AND HYPONATREMIA (4) Alcohol dependence Assessment/Plan: -continue with thiamine and folate Code(s): F10.20 - ALCOHOL DEPENDENCE, UNCOMPLICATED (5) Leukocytosis Assessment/Plan: -ID consult placed -WBC 18.4, will continue to monitor -continue with IV flagyl and levaquin Code(s): D72.829 - ELEVATED WHITE BLOOD CELL COUNT, UNSPECIFIED <Melinda Marlow - Last Filed: 11/02/18 11:46> Assessment/Plan see problem list dvt ppx <Melinda Marlow - Last Filed: 11/02/18 11:46> I AGREE WITH ABOVE NOTE <Greyson Mccain - Last Filed: 11/03/18 15:16>
[2018-11-02 11:56] LABS: ALBUMIN 3.1 g/dl (3.4-5.0); ALK PHOS 105 U/L (45-117); ANION GAP 10 MMOL/L (8-16); BILIRUBIN,TOTAL 0.7 mg/dL (0.2-1); BLOOD UREA NITROGEN 4 mg/dL (7-18); CALCIUM 7.9 mg/dL (8.5-10.1); CHLORIDE 97 mmol/L (98-107); CO2 26 mmol/L (21-32); CREATININE 0.5 mg/dL (0.55-1.3); GLUCOSE,RANDOM 98 mg/dL (74-106); SGOT/AST 11 U/L (15-37); SGPT/ALT 18 U/L (13-61); SODIUM 132 mmol/L (136-145); TOT PROT 6.3 g/dl (6.4-8.2)
[2018-11-02] MEDS: SODIUM CHLORIDE 1,000 ML IV SCH (12:00)
--- NOTE | 2018-11-02 13:07 | PN ---
Progress Note (short form) - Note Progress Note: ID consult dictated imp/reccd fever diverticulitis with phlegmon leukocytosis ETOH use COPD/cigarette use reports he is hiv negative hep status unknown blood cultures (never sent by ER) zosyn esr/crp GI consult Problem List - Problems (1) Fever Code(s): R50.9 - FEVER, UNSPECIFIED (2) Diverticulitis Code(s): K57.92 - DVTRCLI OF INTEST, PART UNSP, W/O PERF OR ABSCESS W/O BLEED (3) Alcohol use disorder Code(s): EJX3110 - (4) COPD (chronic obstructive pulmonary disease) Code(s): J44.9 - CHRONIC OBSTRUCTIVE PULMONARY DISEASE, UNSPECIFIED
[2018-11-02] MEDS ORDERED: PIPERACILLIN/TAZOBACTAM 3.375 GM VIAL IVPB ONE ×2 (13:38→16:56)
[2018-11-02] MEDS ORDERED: DEXTROSE 5%-WATER - 50 ML IVPB ONE ×2 (13:38→16:56)
[2018-11-02 14:17] VITALS: BMI 18.3
[2018-11-02] MEDS: PIPERACILLIN/TAZOB 3.375 GM 3.375 GM in DEXTROSE 5%-WATER - 50 ML IVPB SCH ×2 (14:18→18:38)
--- NOTE | 2018-11-02 14:52 | CONS ---
DATE OF CONSULTATION: 11/02/2018 INFECTIOUS DISEASE CONSULTATION HISTORY OF PRESENT ILLNESS: This is a 53-year-old man who presents to the hospital with a 2-week history of abdominal pain. He reports he has a history of alcohol use and reports that he completed an alcohol detoxification in September at [facility] and this occurred after that. He reports diminished p.o. intake due to the pain. He denies any vomiting. The pain he describes as starting on the left side of his abdomen and traveling across to the right. He denies any diarrhea. He denies any vomiting. He is still an active alcohol user and he last had some beer yesterday. In the emergency room he was afebrile. He had a CAT scan that showed acute sigmoid diverticulitis with possible phlegmon. He was given Levaquin and Flagyl and admitted. I am asked to see him for further recommendations. Currently this morning he had a fever of 100.8. His white count has risen from 14.7 to 18 and he continues to have abdominal discomfort. PAST MEDICAL HISTORY: Is notable for COPD, alcohol use, anemia, and fatty liver. PAST SURGICAL HISTORY: Unremarkable. SOCIAL HISTORY: He states he used to be homeless but now has a place to live. He has a mental health counselor who is helping him. He smokes cigarettes daily. He drinks beer daily. He denies any substance use. He reports he is HIV negative. FAMILY HISTORY: His father of cancer at the age of 62. ALLERGIES: He is allergic to ASPIRIN and PHENOBARBITAL. MEDICATIONS: His medications at home include folic acid and thiamine. He takes a third pill he does not remember what it is. REVIEW OF SYSTEMS: He states he currently has a fever. He denies nausea or vomiting. He has abdominal pain. He has not had any diarrhea and he has no dysuria. PHYSICAL EXAMINATION: Vital Signs: His temperature is 100.8, pulse of 125, blood pressure 133/67, respiratory rate is 25, he is saturating 94% on room air. HEENT: He is normocephalic. His eyes are anicteric. Neck: Supple. Lungs: Have diminished breath sounds at the bases. Heart: Regular rate and rhythm. Abdomen: He has positive bowel sounds. He has diffuse tenderness in the lower part of his abdomen. Extremities: Are without edema. He has a flaky skin rash extending from below his umbilicus to his legs which he states he has had for years. LABORATORY DATA: White count is 18.4, hemoglobin 12.6, platelets are 327. BUN and creatinine are 4 and 0.5. Liver function tests are normal. Sodium is 132. Chest x-ray is notable for atelectasis at the left base, there are no infiltrate. A CAT scan is notable for acute diverticulitis in the mid sigmoid colon. There is a suggestion of a small adjacent phlegmon measuring approximately 3 cm without evidence of abscess. IN SUMMARY: This is a 53-year-old man with: 1. Fever. 2. Diverticulitis with phlegmon. 3. Leukocytosis. 4. Alcohol abuse. 5. Chronic obstructive pulmonary disease with cigarette use. PLAN: I would obtain blood cultures and would start him on Zosyn at this time. Will check a sedimentation rate and CRP so we can trend this and obtain a GI consultation regarding his management of his alcohol use and COPD per the primary attending. Further recommendations to follow. SHEILA GANDARA M.D. [place]/[id number]
--- NOTE | 2018-11-02 14:57 | CONSULT ---
Consult Consult Specialty:: Nephrology Reason for Consultation:: hyponatremia - History of Present Illness Chief Complaint: abdominal pain History of Present Illness: Pt is a 53 year old male with pmhx of hyponatremia, copd, etoh abuse and anemia who presents to the ER with abdominal pain. He was found to be hyponatremic. He says that he has history of hyponatremia and he has seen Dr Hankins in the past. He is supposed to be on a 700 cc fluid restriction. He says he has not been eating much as he has abdominal pain but has been drinking fluids. He has had a few episodes of diarrhea. He was found to have acute diverticulitis. He denies shortness of breath. - History Source History Provided By: Patient, Medical Record - Past Medical History Pulmonary: Yes: COPD Renal/: Yes: Other (hyponatremia) Heme/Onc: Yes: Anemia - Alcohol/Substance Use Hx Alcohol Use: Yes - Smoking History Smoking history: Current every day smoker Have you smoked in the past 12 months: Yes Aproximately how many cigarettes per day: 6 Home Medications - Allergies Allergies/Adverse Reactions: Allergies Allergy/AdvReac Type Severity Reaction Status Date / Time aspirin Allergy Unknown Verified 11/02/18 00:34 phenobarbital Allergy Unknown Verified 11/02/18 00:34 - Home Medications Home Medications: Ambulatory Orders Unobtainable 11/02/18 Family Disease History - Family Disease History Family History: Denies Review of Systems - Review of Systems Constitutional: reports: Malaise. denies: Chills, Fever Eyes: reports: No Symptoms HENT: reports: No Symptoms Neck: reports: No Symptoms Cardiovascular: reports: No Symptoms Respiratory: reports: No Symptoms Gastrointestinal: reports: Abdominal Pain, Diarrhea Genitourinary: reports: No Symptoms Musculoskeletal: reports: No Symptoms Integumentary: reports: No Symptoms Neurological: reports: No Symptoms Endocrine: reports: No Symptoms Hematology/Lymphatic: reports: No Symptoms Psychiatric: reports: No Symptoms Physical Exam Vital Signs: Vital Signs Temperature 100.8 F H 11/02/18 11:09 Pulse Rate 116 H 11/02/18 10:04 Respiratory Rate 18 11/02/18 10:04 Blood Pressure 103/55 L 11/02/18 10:04 O2 Sat by Pulse Oximetry (%) 95 11/02/18 10:04 Constitutional: Yes: Calm Eyes: Yes: Conjunctiva Clear HENT: Yes: Atraumatic Cardiovascular: Yes: S1, S2 Respiratory: Yes: CTA Bilaterally Gastrointestinal: Yes: Soft Renal/: Yes: WNL Musculoskeletal: Yes: WNL Edema: No Neurological: Yes: Oriented Psychiatric: Yes: Oriented Labs: CBC, BMP 11/02/18 07:36 11/02/18 07:36 Laboratory Tests 03/19/18 05/13/18 10/06/18 21:18 16:33 23:12 WBC Sodium 130 L 139 131 L Creatinine Serum Osmolality 11/02/18 11/02/18 11/02/18 01:44 01:44 07:36 WBC 14.7 H 18.4 H Sodium 129 L Creatinine 0.6 Serum Osmolality 11/02/18 11/02/18 07:36 07:36 WBC Sodium 132 L Creatinine 0.5 L Serum Osmolality 270 L Imaging - Results Chest X-ray: Report Reviewed Cat Scan: Report Reviewed Problem List - Problems (1) COPD (chronic obstructive pulmonary disease) Code(s): J44.9 - CHRONIC OBSTRUCTIVE PULMONARY DISEASE, UNSPECIFIED (2) Diverticulitis Code(s): K57.92 - DVTRCLI OF INTEST, PART UNSP, W/O PERF OR ABSCESS W/O BLEED (3) Hyponatremia Code(s): E87.1 - HYPO-OSMOLALITY AND HYPONATREMIA (4) Abdominal pain Code(s): R10.9 - UNSPECIFIED ABDOMINAL PAIN (5) Alcohol dependence Code(s): F10.20 - ALCOHOL DEPENDENCE, UNCOMPLICATED Assessment/Plan Current Medications Generic Name Dose Route Start Last Admin Trade Name Freq PRN Reason Stop Dose Admin Acetaminophen 650 mg 11/02/18 05:56 11/02/18 11:11 Tylenol - PO 650 mg Q6H PRN Administration Fever Or Pain Albuterol/Ipratropium 1 amp 11/02/18 08:00 11/02/18 11:12 Duoneb - NEB 1 amp RQID EMMA Administration Enoxaparin Sodium 40 mg 11/02/18 10:00 11/02/18 11:12 Lovenox - SQ 40 mg DAILY EMMA Administration Folic Acid 1 mg 11/02/18 10:00 11/02/18 11:11 Folic Acid - PO 1 mg DAILY EMMA Administration Sodium Chloride 1,000 mls @ 75 mls/hr 11/02/18 12:00 11/02/18 12:00 Normal Saline - IV 11/03/18 11:51 75 mls/hr ASDIR EMMA Administration Piperacillin Sod/Tazobactam 50 mls @ 100 mls/hr 11/02/18 13:30 11/02/18 14:18 Sod 3.375 gm/ Dextrose IVPB 100 mls/hr Q8H-IV EMMA Administration Protocol Thiamine HCl 100 mg 11/02/18 10:00 11/02/18 11:11 Vitamin B1 - PO 100 mg DAILY EMMA Administration Impression 1. hyponatremia 2. diverticulitis 3. hx etoh abuse 4. anemia 5. copd Plan - cont with saline - sodium is improving - monitor serum sodium - check urine osm - will call for records and hyponatremia workup from previous facility Dr Batista
--- NOTE | 2018-11-02 20:04 | CON.GI ---
Consult Consult Specialty:: Gastroenterology Referred by:: AILEEN Christopher Reason for Consultation:: abdominal pain - History of Present Illness Chief Complaint: Abdominal pain for several weeks History of Present Illness: 53M has had abdominal pain that was initially left sided and which became more diffuse across the lower abdomen prompting him to come to the ER. He was recently hospitalized at [facility] for alcohol detox where he was also treated for a COPD flare. He resumed drinking beer after that detox. he has been moving his bowels regularly. The stool has been semisolid and he has had spotting of blood on occasion. He has never had this pain before and has never had diverticulitis. He has been offered colonoscopy but never had it done. He tells me that he had inguinal hernia surgery as an infant He has been a told of alcoholic liver disease but never had a GI bleed or an EGD. He takes no medications regularly. He lives out of his unheated van. He has a girlfriend who visits him. He has a mental health worker but denies schizophrenia or bipolar disease. He tells me that he had worked in an [employer] but was told he had to stop due to his COPD. [facility] he was diagnosed with a chronic fungal skin disease which he cannot name but which is pruritic. While at [facility] he was seen by Dr Hankins for hyponatremia which he tells me is chronic and for which fluid restriction was abvised. - History Source History Provided By: Patient Limitations to Obtaining History: Poor Historian - Past Medical History Pulmonary: Yes: COPD Gastrointestinal: Yes: Diverticulitis Hepatobiliary: Yes: Other (alcoholic liver disease) Renal/: Yes: Other (hyponatremia) Infectious Disease: Yes: Other (chronic fungal skin disease?) Psych: Yes: Addictions (alcohol and cigarettes) Musculoskeletal: Yes: Chronic low back pain Endocrine: Yes: Other (Hyponatremia) Dermatology: Yes: Other (chronic pruritc scaly rash lower abdomen, inguinal area and lower extremities ) Additional Medical History: Hyponatremia and prone to hypoglycemia. 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 source), Respiratory : Mother ( 72 of COPD ) Other Family History: no children Review of Systems - Review of Systems Constitutional: reports: Fever, Malaise, Unintentional Wgt. Loss, Weakness Eyes: reports: No Symptoms HENT: reports: No Symptoms Neck: reports: No Symptoms Cardiovascular: reports: No Symptoms Respiratory: reports: No Symptoms Gastrointestinal: reports: Abdominal Pain, Diarrhea, Rectal Bleeding Genitourinary: reports: No Symptoms Musculoskeletal: reports: Back Pain Integumentary: reports: Pruritis, Rash, Wound (inguinal foliculitis pustules) Neurological: reports: No Symptoms Psychiatric: reports: Anxiety, Depression Physical Exam-GI Vital Signs: Vital Signs Temperature 98.6 F 11/02/18 18:25 Pulse Rate 94 H 11/02/18 18:25 Respiratory Rate 18 11/02/18 18:25 Blood Pressure 105/63 11/02/18 18:25 O2 Sat by Pulse Oximetry (%) 95 11/02/18 10:04 CBC,CMP WBC 18.4 K/mm3 (4.0-10.0) H 11/02/18 07:36 RBC 3.99 M/mm3 (4.00-5.60) L 11/02/18 07:36 Hgb 12.6 GM/dL (11.7-16.9) 11/02/18 07:36 Hct 36.8 % (35.4-49) 11/02/18 07:36 MCV 92.2 fl (80-96) 11/02/18 07:36 MCH 31.7 pg (25.7-33.7) 11/02/18 07:36 MCHC 34.4 g/dl (32.0-35.9) 11/02/18 07:36 RDW 12.7 % (11.9-15.9) 11/02/18 07:36 Plt Count 327 K/MM3 (134-434) 11/02/18 07:36 MPV 7.3 fl (7.5-11.1) L 11/02/18 07:36 Absolute Neuts (auto) 15.7 K/mm3 (1.5-8.0) H 11/02/18 07:36 Neutrophils % 85.4 % (42.8-82.8) H D 11/02/18 07:36 Lymphocytes % 4.6 % (8-40) L D 11/02/18 07:36 Monocytes % 9.5 % (3.8-10.2) 11/02/18 07:36 Eosinophils % 0.2 % (0-4.5) D 11/02/18 07:36 Basophils % 0.3 % (0-2.0) 11/02/18 07:36 Nucleated RBC % 0 % (0-0) 11/02/18 07:36 Sodium 132 mmol/L (136-145) L 11/02/18 07:36 Potassium 4.0 mmol/L (3.5-5.1) 11/02/18 07:36 Chloride 97 mmol/L (98-107) L 11/02/18 07:36 Carbon Dioxide 26 mmol/L (21-32) 11/02/18 07:36 Anion Gap 10 MMOL/L (8-16) 11/02/18 07:36 BUN 4 mg/dL (7-18) L 11/02/18 07:36 Creatinine 0.5 mg/dL (0.55-1.3) L 11/02/18 07:36 Creat Clearance w eGFR > 60 (>60) 11/02/18 07:36 Random Glucose 98 mg/dL (74-106) 11/02/18 07:36 Serum Osmolality 270 mosm/kg (278-305) L 11/02/18 07:36 Calcium 7.9 mg/dL (8.5-10.1) L 11/02/18 07:36 Total Bilirubin 0.7 mg/dL (0.2-1) 11/02/18 07:36 AST 11 U/L (15-37) L 11/02/18 07:36 ALT 18 U/L (13-61) 11/02/18 07:36 Alkaline Phosphatase 105 U/L (45-117) 11/02/18 07:36 Total Protein 6.3 g/dl (6.4-8.2) L 11/02/18 07:36 Albumin 3.1 g/dl (3.4-5.0) L 11/02/18 07:36 Current Medications Generic Name Dose Route Start Last Admin Trade Name Freq PRN Reason Stop Dose Admin Acetaminophen 650 mg 11/02/18 05:56 11/02/18 11:11 Tylenol - PO 650 mg Q6H PRN Administration Fever Or Pain Albuterol/Ipratropium 1 amp 11/02/18 08:00 11/02/18 15:50 Duoneb - NEB 1 amp RQID EMMA Administration Enoxaparin Sodium 40 mg 11/02/18 10:00 11/02/18 11:12 Lovenox - SQ 40 mg DAILY EMMA Administration Folic Acid 1 mg 11/02/18 10:00 11/02/18 11:11 Folic Acid - PO 1 mg DAILY EMMA Administration Sodium Chloride 1,000 mls @ 75 mls/hr 11/02/18 12:00 11/02/18 12:00 Normal Saline - IV 11/03/18 11:51 75 mls/hr ASDIR EMMA Administration Piperacillin Sod/Tazobactam 50 mls @ 100 mls/hr 11/02/18 13:30 11/02/18 18:38 Sod 3.375 gm/ Dextrose IVPB 100 mls/hr Q8H-IV EMMA Administration Protocol Thiamine HCl 100 mg 11/02/18 10:00 11/02/18 11:11 Vitamin B1 - PO 100 mg DAILY EMMA Administration Constitutional: Yes: No Distress Eyes: Yes: Conjunctiva Clear HENT: Yes: Atraumatic Neck: Yes: Supple Cardiovascular: Yes: Regular Rate and Rhythm Respiratory: Yes: CTA Bilaterally Gastrointestinal Inspection: Yes: Scars (RIH), Other (scaling rash lower abdomen with inguinal folliculitis) ...Auscultate: Yes: Hypoactive Bowel Sounds ...Palpate: Yes: Tenderness (suprapubic and LLQ and bilateral inguinal area) ...Rectal Exam: Yes: Guaiac Positive (semisolid brown guaiac positive stool 1+ prostate bilateral nontender indirect inguinal hernias) Edema: No Integumentary: Yes: Other (scaling rash lower extremities) Neurological: Yes: Alert, Oriented Labs: CBC, BMP 11/02/18 07:36 11/02/18 07:36 Imaging - Results Cat Scan: Report Reviewed (Osvaldo Mason Name: SALAZAR CORTES DEPARTMENT OF RADIOLOGY Phys: Asia Ventura MD : 1965 Age: 53 Sex: M [facility] Acct: [id number] Loc: [id number] [facility] Exam Date: 11/02/18 Status: [place] [address] Unit Number: [id number] EXAM#: TYPE/EXAM: RESULT: [id number] CT/ABDOMEN PELVIS CT W/O CONTR Rule out ileus versus obstruction. CT scan of the abdomen pelvis without oral and intravenous contrast Coronal and sagittal reformatted images were obtained Compared to prior CT scan of the chest dated 03/20/2018. No prior CT scan of the abdomen is available for Previously noted significant COPD changes again partially included on this exam. There are mild atelectatic changes in the dependent portion of the left lower lobe. The heart is within normal limits in size. The liver measures 15 cm in craniocaudal length with homogeneous attenuation. Evaluation of the spleen, pancreas, gallbladder, both adrenal glands and both kidneys appear unremarkable. Partially distended stomach limiting evaluation of its wall without gross thickening. There is no evidence of small bowel obstruction. Normal-appearing terminal ileum and appendix. There are a few diverticula in the sigmoid colon with significant thickening of the mid sigmoid colon wall and significant stranding of the surrounding fat consistent with colitis/ diverticulitis no gross extraluminal air is identified. However, there is suggestion of an adjacent fragment measuring 3 cm without evidence of a drainable abscess. Moderately distended urinary bladder without wall thickening. Normal size prostate gland. Perirectal and pericecal fat are clear. A few small bilateral inguinal hernias are present which are nonspecific. Small right inguinal hernia with partial herniation of a bowel loop into its proximal segment. Notes made of a subcutaneous nodular density in the right lower anterior pelvic wall, which is nonspecific. Correlate clinically. Visualized osseous structures appear intact with mild anterior spondylosis at L1-L2 level IMPRESSION: Acute diverticulitis in the mid sigmoid colon without gross extraluminal air identified. However, there is suggestion of a small adjacent phlegmon measuring approximately 3 cm without evidence of a drainable abscess. Close follow-up is recommended. A preliminary report was forwarded by the [facility] service, [facility]. Reported By: Diogenes Raimrez MD 11/02/18937 Technologist: Oneida Echevarria Transcribed Date/Time: 11/02/18937 Rehab Aid: Diogenes Ramirez Printed Date/Time: By: Signed by: Diogenes Ramirez Signed on: 2018 09:39) Problem List - Problems (1) Diverticulitis large intestine Assessment/Plan: Sigmoid diverticulitis with bladder impingement. Salazar denies bubbles in his urine. Already on antibiotics. Discussed case with Dr. George Code(s): K57.32 - DVTRCLI OF LG INT W/O PERFORATION OR ABSCESS W/O BLEEDING (2) Alcoholic liver disease Assessment/Plan: Will order AFP and screen for coexisting liver diseases. Code(s): K70.9 - ALCOHOLIC LIVER DISEASE, UNSPECIFIED (3) Alcohol dependence Assessment/Plan: Patient had recent detox and is now at risk for DTs. I will initiate a Librium tapering regimen. I have discussed the need to absolutely abstain from alcohol. Code(s): F10.20 - ALCOHOL DEPENDENCE, UNCOMPLICATED (4) Inguinal hernia recurrent bilateral Code(s): K40.21 - BILATERAL INGUINAL HERNIA, W/O OBST OR GANGRENE, RECURRENT (5) Folliculitis Code(s): L73.9 - FOLLICULAR DISORDER, UNSPECIFIED (6) COPD (chronic obstructive pulmonary disease) Code(s): J44.9 - CHRONIC OBSTRUCTIVE PULMONARY DISEASE, UNSPECIFIED (7) Hyponatremia Code(s): E87.1 - HYPO-OSMOLALITY AND HYPONATREMIA (8) Leukocytosis Code(s): D72.829 - ELEVATED WHITE BLOOD CELL COUNT, UNSPECIFIED (9) Abdominal pain Code(s): R10.9 - UNSPECIFIED ABDOMINAL PAIN Assessment/Plan Impression: Sigmoid diverticulitis with bladder impingement Alcoholism and at risk for DTs Alcoholic liver disease with hepatomegaly Bilateral inguinal hernias Hyponatremia Scaly and pustular rash ? scabies, chronic folliculitis. ? fungal Plan: Continue current antibiotics Librium detox AFP and screening for coexisting liver diseases Discussed need to abstain form alcohol Consider dermatology consultation
--- NOTE | 2018-11-02 20:22 | CONSULT ---
Consult Consult Specialty:: General Surgery Referred by:: June Marlow Reason for Consultation:: diverticulitis with phlegmon - History of Present Illness Chief Complaint: lower abd pain from left around/across whole abdomen History of Present Illness: 53yo M alcoholic, s/p recent detox stay at [facility], still drinking ~3 beers daily (much less than previous per pt), with COPD, hyponatremia, EtOH liver disease, anemia, admitted through ER to medicine with 2 weeks of lower abdominal pain beginning on the left, then radiating across whole lower abdomen and some into back. He denies n/v, but did have chills and diarrhea with this, as well as decreased appetite/po intake. He denies urinary symptoms. He has never had a colonoscopy. He does have a chronic skin condition with rash/ folliculitis of lower abdomen/groin/BLE. Workup was notable for wbc 14 which sirena to 18, normal LFTs, hyponatremia which has improved some with saline, and CT showing mid-sigmoid diverticulitis with phlegmon just above bladder but no drainable collection. Surgery was asked to evaluate. He is seen and examined in bed, just after Dr. Casiano had seen him. He reports still having some pain, more in LLQ, though it is better with medication. He is alert and cooperative, but not the best historian. He lives in his van, which does not work so he does not drive it. He has a mental health worker and psychiatrist, but does not have a diagnosis "because I've had trouble keeping my appointments," and trimming caser who is trying to help him find a living situation. He is hungry and has had only ice chips for a couple of days. - History Source History Provided By: Patient, Medical Record Limitations to Obtaining History: Poor Historian - Past Medical History Pulmonary: Yes: COPD Hepatobiliary: Yes: Other (alcoholic liver disease) Renal/: Yes: Other (hyponatremia) Infectious Disease: Yes: Other (chronic folliculitis/fungal skin disease?) Psych: Yes: Addictions (alcohol and cigarettes) Musculoskeletal: Yes: Chronic low back pain Endocrine: Yes: Other (Hyponatremia) Dermatology: Yes: Other (chronic pruritic scaly rash lower abdomen, inguinal area and lower extremities ) Additional Medical History: Hyponatremia and prone to hypoglycemia. Bilateral inguinal hernias - Past Surgical History Past Surgical History: Yes: Hernia Repair (right inguinal hernia repair). No: Colonoscopy - Alcohol/Substance Use Hx Alcohol Use: Yes (3 beers daily (used to be much more)) Number of Drinks Daily: 3 History of Substance Use: reports: None - Smoking History Smoking history: Current every day smoker Have you smoked in the past 12 months: Yes Aproximately how many cigarettes per day: 6 - Social History Usual Living Arrangement: Alone (in a van) ADL: Independent Home Medications - Allergies Allergies/Adverse Reactions: Allergies Allergy/AdvReac Type Severity Reaction Status Date / Time aspirin Allergy Unknown Verified 11/02/18 00:34 phenobarbital Allergy Unknown Verified 11/02/18 00:34 - Home Medications Home Medications: Ambulatory Orders Folic Acid 1 mg PO DAILY 11/02/18 Thiamine HCl [B-1] 100 mg PO DAILY 11/02/18 Home Medications (free text): pt also is supposed to take one more med, doesnt know name, for his low sodium? Family Disease History - Family Disease History Family Disease History: CA: Father (unknown type, ~60), Respiratory: Mother (emphysema, ) Review of Systems - Review of Systems Constitutional: reports: Unintentional Wgt. Loss (clothes a little looser sometimes). denies: Chills, Fever Eyes: denies: Blurred Vision, Recent Change in Vision HENT: denies: Difficult Swallowing, Throat Pain Neck: denies: Swollen Glands, Tenderness Cardiovascular: denies: Chest Pain, Palpitations Respiratory: reports: Cough (chronic). denies: SOB Gastrointestinal: reports: Abdominal Pain (with hpi). denies: Constipation, Diarrhea, Nausea, Vomiting Genitourinary: denies: Burning, Dysuria Musculoskeletal: denies: Back Pain, Joint Pain, Muscle Pain Integumentary: reports: Erythema (over pelvis/groins/BLE), Lump (small pink soft , tender, raised lump in left groin, related to chronic folliculitis), Pruritis (sometimes), Rash (lower abdomen/groins/BLE) Neurological: reports: Tremors (sometimes). denies: Dizziness, Headache Psychiatric: denies: Anxiety, Depression Physical Exam Vital Signs: Vital Signs Temperature 98.6 F 11/02/18 18:25 Pulse Rate 94 H 11/02/18 18:25 Respiratory Rate 18 11/02/18 18:25 Blood Pressure 105/63 11/02/18 18:25 O2 Sat by Pulse Oximetry (%) 95 11/02/18 10:04 Constitutional: Yes: No Distress, Calm, Poor Hygeine, Thin Eyes: Yes: Conjunctiva Clear, EOM Intact HENT: Yes: Atraumatic, Normocephalic Neck: Yes: Supple, Trachea Midline Cardiovascular: Yes: Regular Rate and Rhythm Respiratory: Yes: Regular, CTA Bilaterally Gastrointestinal: Yes: Normal Bowel Sounds, Soft, Hernia (small inguinal hernia , more easily appreciated on right), Tenderness (suprapubic mild, less LLQ). No : Distention, Tenderness, Epigastrium, Tenderness, Rebound ...Rectal Exam: Yes: Deferred Renal/: No: CVA Tenderness - Left, CVA Tenderness - Right Musculoskeletal: No: Joint Stiffness, Joint Swelling Extremities: Yes: Erythema (scaly/flaky pink skin on BLE). No: Cool, Cyanosis Edema: No Peripheral Pulses WNL: Yes Integumentary: Yes: Rash (severe folliculitis over lower and mid abdomen with blackheads, pockmarks and scars; small pink tender soft raised lesion in left groin, possibly small developing abscess; pink/scaly/flaky skin changes extending into groins, BLE down to feet - possibly fungal component?), Other ( healed right groin scar). No: Jaundice Wound/Incision: Yes: Open to air (rash on abd/groins/legs). No: Draining (no draining lesions) Neurological: Yes: Alert, Oriented Psychiatric: Yes: Alert, Oriented Labs: CBC, BMP 11/02/18 07:36 11/02/18 07:36 CMP Sodium 132 mmol/L (136-145) L 11/02/18 07:36 Potassium 4.0 mmol/L (3.5-5.1) 11/02/18 07:36 Chloride 97 mmol/L (98-107) L 11/02/18 07:36 Carbon Dioxide 26 mmol/L (21-32) 11/02/18 07:36 Anion Gap 10 MMOL/L (8-16) 11/02/18 07:36 BUN 4 mg/dL (7-18) L 11/02/18 07:36 Creatinine 0.5 mg/dL (0.55-1.3) L 11/02/18 07:36 Creat Clearance w eGFR > 60 (>60) 11/02/18 07:36 Random Glucose 98 mg/dL (74-106) 11/02/18 07:36 Serum Osmolality 270 mosm/kg (278-305) L 11/02/18 07:36 Calcium 7.9 mg/dL (8.5-10.1) L 11/02/18 07:36 Total Bilirubin 0.7 mg/dL (0.2-1) 11/02/18 07:36 AST 11 U/L (15-37) L 11/02/18 07:36 ALT 18 U/L (13-61) 11/02/18 07:36 Alkaline Phosphatase 105 U/L (45-117) 11/02/18 07:36 Total Protein 6.3 g/dl (6.4-8.2) L 11/02/18 07:36 Albumin 3.1 g/dl (3.4-5.0) L 11/02/18 07:36 Imaging - Results Cat Scan: Report Reviewed, Image Reviewed (images reviewed - mid-sigmoid diverticulitis with phlegmon, mainly located just superior to bladder, no obvious fistula noted, no obstruction, no gross free air, bilateral inguinal hernias) Problem List - Problems (1) Diverticulitis of large intestine with complication Assessment/Plan: phlegmon present but no drainable abscess IV antibiotics per ID NPO/IVF/ice chips only until pain/tenderness and wbc resolve more GI/DVT prophylaxis COPD/EtOH management per primary team pt's abdominal skin condition makes him a poor candidate for colostomy discussed potential need for surgery, which would likely involve needing colostomy, if diverticulitis does not improve with conservative measures, or he has gross perforation - would like to avoid if at all possible please check coags and obtain T&S discussed with Dr. Casiano also stressed to patient that he will need colonoscopy 6-8 weeks after resolution of this episode Code(s): K57.32 - DVTRCLI OF LG INT W/O PERFORATION OR ABSCESS W/O BLEEDING (2) LLQ pain Code(s): R10.32 - LEFT LOWER QUADRANT PAIN (3) Leukocytosis Code(s): D72.829 - ELEVATED WHITE BLOOD CELL COUNT, UNSPECIFIED Qualifiers: Leukocytosis type: other Qualified Code(s): D72.828 - Other elevated white blood cell count (4) Alcoholic liver disease Code(s): K70.9 - ALCOHOLIC LIVER DISEASE, UNSPECIFIED (5) COPD (chronic obstructive pulmonary disease) Code(s): J44.9 - CHRONIC OBSTRUCTIVE PULMONARY DISEASE, UNSPECIFIED Qualifiers: COPD type: unspecified COPD Qualified Code(s): J44.9 - Chronic obstructive pulmonary disease, unspecified (6) Hyponatremia Code(s): E87.1 - HYPO-OSMOLALITY AND HYPONATREMIA (7) Folliculitis Code(s): L73.9 - FOLLICULAR DISORDER, UNSPECIFIED
[2018-11-02] MEDS: chlordiazePOXIDE HCL 25 MG CAPSULE PO SCH (22:15)
[2018-11-03] MEDS ORDERED: DEXTROSE 5%-WATER - 50 ML IVPB ONE ×4 (00:16→23:23)
[2018-11-03] MEDS ORDERED: PIPERACILLIN/TAZOBACTAM 3.375 GM VIAL IVPB ONE ×4 (00:16→23:23)
[2018-11-03] MEDS: PIPERACILLIN/TAZOB 3.375 GM 3.375 GM in DEXTROSE 5%-WATER - 50 ML IVPB SCH ×3 (02:32→17:29)
[2018-11-03] MEDS: chlordiazePOXIDE HCL 25 MG CAPSULE PO SCH ×3 (05:34→17:29)
[2018-11-03] MEDS: SODIUM CHLORIDE 1,000 ML IV SCH ×3 (05:42→23:18)
[2018-11-03 07:36] LABS: HEMATOCRIT 35.8 % (35.4-49); HEMOGLOBIN 12.2 GM/dL (11.7-16.9); MCH 31.5 pg (25.7-33.7); MCHC 33.9 g/dl (32.0-35.9); MEAN PLT VOLUME 7.4 fl (7.5-11.1); PLATELET COUNT 316 K/MM3 (134-434); RBC 3.85 M/mm3 (4.00-5.60); RDW 12.6 % (11.9-15.9); WHITE BLOOD COUNT 14.8 K/mm3 (4.0-10.0)
[2018-11-03 08:37] LABS: ALBUMIN 2.6 g/dl (3.4-5.0); ALK PHOS 85 U/L (45-117); ANION GAP 9 MMOL/L (8-16); BLOOD UREA NITROGEN 6 mg/dL (7-18); CALCIUM 7.9 mg/dL (8.5-10.1); CHLORIDE 97 mmol/L (98-107); CO2 26 mmol/L (21-32); CREATININE 0.6 mg/dL (0.55-1.3); GLUCOSE,RANDOM 75 mg/dL (74-106); POTASSIUM 3.8 mmol/L (3.5-5.1); SGOT/AST 8 U/L (15-37); SGPT/ALT 12 U/L (13-61); SODIUM 132 mmol/L (136-145); TOT PROT 5.6 g/dl (6.4-8.2)
[2018-11-03] MEDS: ALBUTEROL SO4 2.5/IPRATROPIUM 0.5 INH SOL 3 ML VIAL.NEB. NEB SCH ×4 (09:08→20:30)
[2018-11-03] MEDS: ENOXAPARIN NA (PORCINE) 40 MG/0.4 ML DISP.SYRIN SQ SCH (10:22)
--- NOTE | 2018-11-03 10:54 | PN ---
Progress Note, Physician History of Present Illness: Pt seen and examined at bedside. He has appetite. He says he was drinking about 3 - 18 oz bottles of beer daily. - Current Medication List Current Medications: Active Medications Acetaminophen (Tylenol -) 650 mg PO Q6H PRN PRN Reason: Fever Or Pain Last Admin: 11/02/18 11:11 Dose: 650 mg Albuterol/Ipratropium (Duoneb -) 1 amp NEB RQID [facility] Last Admin: 11/03/18 09:08 Dose: 1 amp Chlordiazepoxide HCl (Librium -) 25 mg PO [id number] [facility] Stop: 11/03/18 17:01 Last Admin: 11/03/18 05:34 Dose: 25 mg Chlordiazepoxide HCl (Librium -) 15 mg PO [id number] [facility] Stop: 11/04/18 17:01 Chlordiazepoxide HCl (Librium -) 10 mg PO [id number] [facility] Stop: 11/05/18 17:01 Enoxaparin Sodium (Lovenox -) 40 mg SQ DAILY [facility] Last Admin: 11/03/18 10:22 Dose: 40 mg Folic Acid (Folic Acid -) 1 mg PO DAILY [facility] Last Admin: 11/02/18 11:11 Dose: 1 mg Sodium Chloride (Normal Saline -) 1,000 mls @ 75 mls/hr IV ASDIR [facility] Stop: 11/03/18 11:51 Last Admin: 11/03/18 05:42 Dose: 75 mls/hr Piperacillin Sod/Tazobactam (Sod 3.375 gm/ Dextrose) 50 mls @ 100 mls/hr IVPB Q8H-IV [facility]; Protocol Last Admin: 11/03/18 10:23 Dose: 100 mls/hr Thiamine HCl (Vitamin B1 -) 100 mg PO DAILY [facility] Last Admin: 11/02/18 11:11 Dose: 100 mg - Objective Vital Signs: Vital Signs Temperature 98.4 F 11/03/18 06:12 Pulse Rate 93 H 11/03/18 06:12 Respiratory Rate 18 11/03/18 06:12 Blood Pressure 110/64 11/03/18 06:12 O2 Sat by Pulse Oximetry (%) 95 11/02/18 21:00 Constitutional: Yes: Calm Eyes: Yes: Conjunctiva Clear HENT: Yes: Atraumatic Neck: Yes: Supple Cardiovascular: Yes: S1, S2 Respiratory: Yes: CTA Bilaterally Gastrointestinal: Yes: Soft Genitourinary: Yes: WNL Musculoskeletal: Yes: WNL Edema: No Neurological: Yes: Oriented Psychiatric: Yes: Oriented Labs: CBC, BMP 11/03/18 06:30 11/03/18 06:30 Problem List - Problems (1) COPD (chronic obstructive pulmonary disease) Code(s): J44.9 - CHRONIC OBSTRUCTIVE PULMONARY DISEASE, UNSPECIFIED Qualifiers: COPD type: unspecified COPD Qualified Code(s): J44.9 - Chronic obstructive pulmonary disease, unspecified (2) Diverticulitis Code(s): K57.92 - DVTRCLI OF INTEST, PART UNSP, W/O PERF OR ABSCESS W/O BLEED (3) Hyponatremia Code(s): E87.1 - HYPO-OSMOLALITY AND HYPONATREMIA (4) Abdominal pain Code(s): R10.9 - UNSPECIFIED ABDOMINAL PAIN (5) Alcohol dependence Code(s): F10.20 - ALCOHOL DEPENDENCE, UNCOMPLICATED Assessment/Plan Current Medications Generic Name Dose Route Start Last Admin Trade Name Freq PRN Reason Stop Dose Admin Acetaminophen 650 mg 11/02/18 05:56 11/02/18 11:11 Tylenol - PO 650 mg Q6H PRN Administration Fever Or Pain Albuterol/Ipratropium 1 amp 11/02/18 08:00 11/03/18 09:08 Duoneb - NEB 1 amp RQID [facility] Administration Chlordiazepoxide HCl 25 mg 11/02/18 23:00 11/03/18 05:34 Librium - PO 11/03/18 17:01 25 mg [id number] [facility] Administration Chlordiazepoxide HCl 15 mg 11/03/18 23:00 Librium - PO 11/04/18 17:01 [id number] [facility] Chlordiazepoxide HCl 10 mg 11/04/18 23:00 Librium - PO 11/05/18 17:01 [id number] [facility] Enoxaparin Sodium 40 mg 11/02/18 10:00 11/03/18 10:22 Lovenox - SQ 40 mg DAILY [facility] Administration Folic Acid 1 mg 11/02/18 10:00 11/02/18 11:11 Folic Acid - PO 1 mg DAILY [facility] Administration Sodium Chloride 1,000 mls @ 75 mls/hr 11/02/18 12:00 11/03/18 05:42 Normal Saline - IV 11/03/18 11:51 75 mls/hr ASDIR [facility] Administration Piperacillin Sod/Tazobactam 50 mls @ 100 mls/hr 11/02/18 13:30 11/03/18 10:23 Sod 3.375 gm/ Dextrose IVPB 100 mls/hr Q8H-IV [facility] Administration Protocol Thiamine HCl 100 mg 11/02/18 10:00 11/02/18 11:11 Vitamin B1 - PO 100 mg DAILY [facility] Administration Laboratory Tests 11/03/18 06:30 TSH 3.01 Impression 1. hyponatremia 2. diverticulitis 3. hx etoh abuse 4. anemia 5. copd Plan - cont with saline as he is NPO - discussed etoh consumption - monitor sodium - restrict free water when he starts eating - will re-order urine studies Dr Batista
[2018-11-03] MEDS: THIAMINE HCL 100 MG TABLET (FP) PO SCH (11:31)
[2018-11-03] MEDS: FOLIC ACID 1 MG TABLET (FP) PO SCH (11:31)
[2018-11-03 12:12] LABS: URINE APPEARANCE CLEAR; URINE BILIRUBIN NEGATIVE (<2.0 mg/dL); URINE COLOR YELLOW; URINE GLUCOSE (UA) NEGATIVE (NEGATIVE); URINE KETONE 1+ (NEGATIVE); URINE LEUK ESTERASE NEGATIVE (NEGATIVE); URINE NITRITE NEGATIVE (NEGATIVE); URINE PROTEIN NEGATIVE (NEGATIVE); URINE UROBILINOGEN NEGATIVE mg/dL (0.2-1.0)
--- NOTE | 2018-11-03 15:00 | PN ---
Progress Note (short form) - Note Progress Note: still with abdominal pain hungry and wants to eat Vital Signs Period Temp Pulse Resp BP Sys/Ballard Pulse Ox Last 24 Hr 97.9 F-98.6 F 93-97 18-23 105-139/63-78 95-95 cor-rrr lungs clear abd +bs, soft, diffuse tender to palpation ext no edema CBC, BMP 11/03/18 06:30 11/03/18 06:30 a/p fever diverticulitis with phlegmon leukocytosis ETOH use COPD/cigarette use reports he is hiv negative hep status unknown continue zosyn wbc trending down Problem List - Problems (1) Fever Code(s): R50.9 - FEVER, UNSPECIFIED (2) Diverticulitis Code(s): K57.92 - DVTRCLI OF INTEST, PART UNSP, W/O PERF OR ABSCESS W/O BLEED (3) Alcohol use disorder Code(s): VJS1400 - (4) COPD (chronic obstructive pulmonary disease) Code(s): J44.9 - CHRONIC OBSTRUCTIVE PULMONARY DISEASE, UNSPECIFIED Qualifiers: COPD type: unspecified COPD Qualified Code(s): J44.9 - Chronic obstructive pulmonary disease, unspecified
--- NOTE | 2018-11-03 17:14 | PN ---
GI Progress Note Subjective: GI NOte: Has less pain today. NO fever. WBC slightly down. No tremors or lethargy on Librium - Objective Vital Signs: Vital Signs Temperature 99.5 F 11/03/18 14:08 Pulse Rate 107 H 11/03/18 14:08 Respiratory Rate 16 11/03/18 14:08 Blood Pressure 115/65 11/03/18 14:08 O2 Sat by Pulse Oximetry (%) 95 11/03/18 09:00 Laboratory Tests 11/02/18 11/02/18 11/03/18 01:44 07:36 06:30 WBC 14.7 H 18.4 H 14.8 H Hgb 12.6 12.2 BUN Creatinine Ferritin Total Bilirubin AST ALT Alkaline Phosphatase C-Reactive Protein DANIS Screen [employer] Intrp Tiss Transglutamin IgG Tiss Transglutamin IgA Hepatitis A Ab Total Hep Bs Antigen Hep Bs Antibody Hep B Core Total Ab Hep C Ab Diagnostic 11/03/18 11/03/18 11/03/18 06:30 06:30 06:30 WBC Hgb BUN 6 L Creatinine 0.6 Ferritin 162.8 Total Bilirubin 1.0 AST 8 L ALT 12 L Alkaline Phosphatase 85 C-Reactive Protein 14.2 H DANIS Screen Pending [employer] Intrp Pending Tiss Transglutamin IgG Pending Tiss Transglutamin IgA Pending Hepatitis A Ab Total Pending Hep Bs Antigen Pending Hep Bs Antibody Pending Hep B Core Total Ab Pending Hep C Ab Diagnostic Pending Constitutional: No Distress Eyes: Yes: Conjunctiva Clear ...Auscultate: Yes: Hypoactive Bowel Sounds ...Palpate: Yes: Soft, Tenderness (minimal LLQ tenderness) Neurological: Yes: Alert, Oriented Labs: CBC, BMP 11/03/18 06:30 11/03/18 06:30 Assessment/Plan Impression: Sigmoid diverticulitis with bladder impingement Alcoholism and at risk for DTs Alcoholic liver disease with hepatomegaly Bilateral inguinal hernias Hyponatremia Scaly and pustular rash ? scabies, chronic folliculitis. ? fungal Plan: Continue current antibiotics Continue Librium detox Agree with trial of clear liquids. Again discussed need to abstain from alcohol Will request dermatology consultation Problem List - Problems (1) Diverticulitis large intestine Code(s): K57.32 - DVTRCLI OF LG INT W/O PERFORATION OR ABSCESS W/O BLEEDING (2) Alcoholic liver disease Code(s): K70.9 - ALCOHOLIC LIVER DISEASE, UNSPECIFIED (3) Alcohol dependence Code(s): F10.20 - ALCOHOL DEPENDENCE, UNCOMPLICATED (4) Inguinal hernia recurrent bilateral Code(s): K40.21 - BILATERAL INGUINAL HERNIA, W/O OBST OR GANGRENE, RECURRENT (5) Folliculitis Code(s): L73.9 - FOLLICULAR DISORDER, UNSPECIFIED (6) COPD (chronic obstructive pulmonary disease) Code(s): J44.9 - CHRONIC OBSTRUCTIVE PULMONARY DISEASE, UNSPECIFIED Qualifiers: COPD type: unspecified COPD Qualified Code(s): J44.9 - Chronic obstructive pulmonary disease, unspecified (7) Hyponatremia Code(s): E87.1 - HYPO-OSMOLALITY AND HYPONATREMIA (8) Leukocytosis Code(s): D72.829 - ELEVATED WHITE BLOOD CELL COUNT, UNSPECIFIED Qualifiers: Leukocytosis type: other Qualified Code(s): D72.828 - Other elevated white blood cell count (9) Abdominal pain Code(s): R10.9 - UNSPECIFIED ABDOMINAL PAIN
--- NOTE | 2018-11-03 19:36 | PN ---
Progress Note, Physician History of Present Illness: Pt with sigmoid diverticulitis with phlegmon, mainly superior to bladder. No fevers, wbc down a little today back to 14. On abx per ID. Started clears for dinner, which he has tolerated without increase in pain. Pain is a little less overall, but still present. He had diarrhea today, which came quickly after drinking liquids. No nausea. He is seen and examined in bed. - Current Medication List Current Medications: Active Medications Acetaminophen (Tylenol -) 650 mg PO Q6H PRN PRN Reason: Fever Or Pain Last Admin: 11/02/18 11:11 Dose: 650 mg Albuterol/Ipratropium (Duoneb -) 1 amp NEB RQID [facility] Last Admin: 11/03/18 15:45 Dose: 1 amp Chlordiazepoxide HCl (Librium -) 15 mg PO [id number] [facility] Stop: 11/04/18 17:01 Chlordiazepoxide HCl (Librium -) 10 mg PO [id number] [facility] Stop: 11/05/18 17:01 Enoxaparin Sodium (Lovenox -) 40 mg SQ DAILY [facility] Last Admin: 11/03/18 10:22 Dose: 40 mg Folic Acid (Folic Acid -) 1 mg PO DAILY [facility] Last Admin: 11/03/18 11:31 Dose: 1 mg Piperacillin Sod/Tazobactam (Sod 3.375 gm/ Dextrose) 50 mls @ 100 mls/hr IVPB Q8H-IV [facility]; Protocol Last Admin: 11/03/18 17:29 Dose: 100 mls/hr Sodium Chloride (Normal Saline -) 1,000 mls @ 75 mls/hr IV ASDIR [facility] Last Admin: 11/03/18 17:29 Dose: Not Given Thiamine HCl (Vitamin B1 -) 100 mg PO DAILY [facility] Last Admin: 11/03/18 11:31 Dose: 100 mg - Objective Vital Signs: Vital Signs Temperature 99 F 11/03/18 16:30 Pulse Rate 112 H 11/03/18 16:30 Respiratory Rate 16 11/03/18 16:30 Blood Pressure 130/73 11/03/18 16:30 O2 Sat by Pulse Oximetry (%) 95 11/03/18 09:00 Constitutional: Yes: No Distress, Calm, Thin Eyes: Yes: Conjunctiva Clear, EOM Intact HENT: Yes: Atraumatic, Normocephalic Gastrointestinal: Yes: Soft, Hernia (inguinals), Tenderness (suprapubic, mild, little less than yesterday, no R/G), Other (lower abdominal folliculitis, with scaly pink/red rash extending into groins and onto BLE; small pink pustule in left groin less tender, more fluctuant, may open/drain spontaneously soon). No : Distention Extremities: No: Cool, Cyanosis Integumentary: Yes: Rash (see above). No: Jaundice Wound/Incision: Yes: Open to air, Other (left dressing of folded 4x4 and tape over L groin pustule in anticipation of possible drainage). No: Draining Neurological: Yes: Alert, Oriented, Tremors (hands) Labs: CBC, BMP 11/03/18 06:30 11/03/18 06:30 CMP Sodium 132 mmol/L (136-145) L 11/03/18 06:30 Potassium 3.8 mmol/L (3.5-5.1) 11/03/18 06:30 Chloride 97 mmol/L (98-107) L 11/03/18 06:30 Carbon Dioxide 26 mmol/L (21-32) 11/03/18 06:30 Anion Gap 9 MMOL/L (8-16) 11/03/18 06:30 BUN 6 mg/dL (7-18) L 11/03/18 06:30 Creatinine 0.6 mg/dL (0.55-1.3) 11/03/18 06:30 Creat Clearance w eGFR > 60 (>60) 11/03/18 06:30 Random Glucose 75 mg/dL (74-106) 11/03/18 06:30 Serum Osmolality 270 mosm/kg (278-305) L 11/02/18 07:36 Calcium 7.9 mg/dL (8.5-10.1) L 11/03/18 06:30 Ferritin 162.8 ng/ml (8-388) 11/03/18 06:30 Total Bilirubin 1.0 mg/dL (0.2-1) 11/03/18 06:30 AST 8 U/L (15-37) L 11/03/18 06:30 ALT 12 U/L (13-61) L 11/03/18 06:30 Alkaline Phosphatase 85 U/L (45-117) 11/03/18 06:30 C-Reactive Protein 14.2 MG/DL (0.00-0.3) H 11/03/18 06:30 Total Protein 5.6 g/dl (6.4-8.2) L 11/03/18 06:30 Albumin 2.6 g/dl (3.4-5.0) L 11/03/18 06:30 TSH 3.01 uIU/ml (0.358-3.74) 11/03/18 06:30 Problem List - Problems (1) Diverticulitis of large intestine with complication Assessment/Plan: phlegmon present but no drainable abscess IV antibiotics per ID GI/DVT prophylaxis COPD/EtOH management per primary team started clears - would go slow with diet advancement possible full liquids tomorrow pm if doing well on clears pt's abdominal skin condition makes him a poor candidate for colostomy - would like to avoid surgery if at all possible please check coags and obtain T&S patient will also need colonoscopy 6-8 weeks after resolution of this episode Code(s): K57.32 - DVTRCLI OF LG INT W/O PERFORATION OR ABSCESS W/O BLEEDING (2) LLQ pain Code(s): R10.32 - LEFT LOWER QUADRANT PAIN (3) Leukocytosis Assessment/Plan: improving Code(s): D72.829 - ELEVATED WHITE BLOOD CELL COUNT, UNSPECIFIED Qualifiers: Leukocytosis type: other Qualified Code(s): D72.828 - Other elevated white blood cell count (4) Alcoholic liver disease Code(s): K70.9 - ALCOHOLIC LIVER DISEASE, UNSPECIFIED (5) COPD (chronic obstructive pulmonary disease) Code(s): J44.9 - CHRONIC OBSTRUCTIVE PULMONARY DISEASE, UNSPECIFIED Qualifiers: COPD type: unspecified COPD Qualified Code(s): J44.9 - Chronic obstructive pulmonary disease, unspecified (6) Hyponatremia Assessment/Plan: stable Code(s): E87.1 - HYPO-OSMOLALITY AND HYPONATREMIA (7) Folliculitis Code(s): L73.9 - FOLLICULAR DISORDER, UNSPECIFIED
[2018-11-03] MEDS: ACETAMINOPHEN 325 MG TABLET (FP) PO PRN (21:55)
[2018-11-03] MEDS: chlordiazePOXIDE 5 MG CAPSULE PO SCH (22:54)
[2018-11-04] MEDS: PIPERACILLIN/TAZOB 3.375 GM 3.375 GM in DEXTROSE 5%-WATER - 50 ML IVPB SCH ×3 (02:25→18:19)
[2018-11-04 03:14] LABS: HBSAG SCREEN Negative (Negative); HEP B CORE AB, TOT Negative (Negative)
[2018-11-04] MEDS: chlordiazePOXIDE 5 MG CAPSULE PO SCH ×4 (05:27→22:37)
[2018-11-04 06:08] LABS: HEMOGLOBIN 12.1 GM/dL (11.7-16.9); MCH 32.1 pg (25.7-33.7); MCHC 34.5 g/dl (32.0-35.9); MEAN CELL VOLUME 93.1 fl (80-96); MEAN PLT VOLUME 6.8 fl (7.5-11.1); PLATELET COUNT 316 K/MM3 (134-434); RBC 3.76 M/mm3 (4.00-5.60); RDW 12.7 % (11.9-15.9); WHITE BLOOD COUNT 9.3 K/mm3 (4.0-10.0)
[2018-11-04 06:36] LABS: ALBUMIN 2.5 g/dl (3.4-5.0); ALK PHOS 77 U/L (45-117); ANION GAP 4 MMOL/L (8-16); BILIRUBIN,TOTAL 0.6 mg/dL (0.2-1); BLOOD UREA NITROGEN 4 mg/dL (7-18); CALCIUM 7.9 mg/dL (8.5-10.1); CHLORIDE 101 mmol/L (98-107); CO2 31 mmol/L (21-32); CREATININE 0.6 mg/dL (0.55-1.3); GLUCOSE,RANDOM 96 mg/dL (74-106); MAGNESIUM 2.2 mg/dL (1.8-2.4); PHOSPHOROUS 3.6 mg/dL (2.5-4.9); POTASSIUM 3.6 mmol/L (3.5-5.1); SGOT/AST 8 U/L (15-37); SGPT/ALT 12 U/L (13-61); SODIUM 136 mmol/L (136-145); TOT PROT 5.6 g/dl (6.4-8.2)
[2018-11-04 08:07] LABS: SERUM IRON SATURATION 11 % (15-55); TOTAL IRON BINDING CAPACITY 203 ug/dL (250-450); UIBC 181 ug/dL (111-343)
[2018-11-04] MEDS: ALBUTEROL SO4 2.5/IPRATROPIUM 0.5 INH SOL 3 ML VIAL.NEB. NEB SCH ×4 (09:30→20:50)
[2018-11-04 10:14] LABS: TRANSGLUTAMINASE IGA < 2 U/mL (0-3); TRANSGLUTAMINASE IGG < 2 U/mL (0-5)
[2018-11-04] MEDS ORDERED: DEXTROSE 5%-WATER - 50 ML IVPB ONE ×2 (10:34→17:48)
[2018-11-04] MEDS ORDERED: PIPERACILLIN/TAZOBACTAM 3.375 GM VIAL IVPB ONE ×2 (10:34→17:48)
[2018-11-04] MEDS: THIAMINE HCL 100 MG TABLET (FP) PO SCH (10:53)
[2018-11-04] MEDS: FOLIC ACID 1 MG TABLET (FP) PO SCH (10:53)
[2018-11-04] MEDS: ENOXAPARIN NA (PORCINE) 40 MG/0.4 ML DISP.SYRIN SQ SCH (10:55)
--- NOTE | 2018-11-04 11:18 | PN ---
Progress Note, Physician Chief Complaint: Diverticulitis Hyponatremia History of Present Illness: Previous notes and events reviewed awake and alert NAD denies chest pain or SOB c/o diarrhea spiked temp 100.6F during the night - Current Medication List Current Medications: Active Medications Acetaminophen (Tylenol -) 650 mg PO Q6H PRN PRN Reason: Fever Or Pain Last Admin: 11/03/18 21:55 Dose: 650 mg Albuterol/Ipratropium (Duoneb -) 1 amp NEB RQID [facility] Last Admin: 11/04/18 09:30 Dose: 1 amp Chlordiazepoxide HCl (Librium -) 15 mg PO [id number] [facility] Stop: 11/04/18 17:01 Last Admin: 11/04/18 10:54 Dose: 15 mg Chlordiazepoxide HCl (Librium -) 10 mg PO [id number] [facility] Stop: 11/05/18 17:01 Enoxaparin Sodium (Lovenox -) 40 mg SQ DAILY [facility] Last Admin: 11/04/18 10:55 Dose: 40 mg Folic Acid (Folic Acid -) 1 mg PO DAILY [facility] Last Admin: 11/04/18 10:53 Dose: 1 mg Piperacillin Sod/Tazobactam (Sod 3.375 gm/ Dextrose) 50 mls @ 100 mls/hr IVPB Q8H-IV [facility]; Protocol Last Admin: 11/04/18 10:55 Dose: 100 mls/hr Sodium Chloride (Normal Saline -) 1,000 mls @ 75 mls/hr IV ASDIR [facility] Last Admin: 11/03/18 23:18 Dose: 75 mls/hr Thiamine HCl (Vitamin B1 -) 100 mg PO DAILY [facility] Last Admin: 11/04/18 10:53 Dose: 100 mg - Objective Vital Signs: Vital Signs Temperature 98.2 F 11/04/18 06:00 Pulse Rate 88 11/04/18 06:00 Respiratory Rate 18 11/04/18 06:00 Blood Pressure 121/73 11/04/18 06:00 O2 Sat by Pulse Oximetry (%) 95 11/03/18 21:00 Constitutional: Yes: No Distress, Calm Eyes: Yes: Conjunctiva Clear HENT: Yes: Atraumatic Cardiovascular: Yes: Regular Rate and Rhythm Respiratory: Yes: Rales Gastrointestinal: Yes: Normal Bowel Sounds, Soft, Tenderness (LLQ) Musculoskeletal: Yes: Muscle Weakness Edema: No Neurological: Yes: Alert, Oriented Psychiatric: Yes: Alert, Oriented Labs: CBC, BMP 11/04/18 06:00 11/04/18 06:00 Laboratory Results - last 24 hr 11/03/18 11/03/18 11/03/18 06:30 11:40 11:40 WBC RBC Hgb Hct MCV MCH MCHC RDW Plt Count MPV Sodium Potassium Chloride Carbon Dioxide Anion Gap BUN Creatinine Creat Clearance w eGFR Random Glucose Calcium Phosphorus Magnesium Iron 22 L TIBC 203 L Iron Saturation 11 L Total Bilirubin AST ALT Alkaline Phosphatase C-Reactive Protein Total Protein Albumin Urine Color Urine Appearance Urine pH Ur Specific [place] Urine Protein Urine Glucose (UA) Urine Ketones Urine Blood Urine Nitrite Urine Bilirubin Urine Urobilinogen Ur Leukocyte Esterase Urine WBC (Auto) Urine RBC (Auto) Urine Osmolality 525 Ur Random Sodium 138 Ur Random Potassium 27.3 Ur Random Chloride 171 Tiss Transglutamin IgG < 2 Tiss Transglutamin IgA < 2 Hepatitis A Ab Total Negative Hep Bs Antigen Negative Hep Bs Antibody Non reactive Hep B Core Total Ab Negative Hep C Ab Diagnostic <0.1 11/03/18 11/04/18 11/04/18 11:40 06:00 06:00 WBC 9.3 RBC 3.76 L Hgb 12.1 Hct 35.0 L MCV 93.1 MCH 32.1 MCHC 34.5 RDW 12.7 Plt Count 316 MPV 6.8 L Sodium 136 Potassium 3.6 Chloride 101 Carbon Dioxide 31 Anion Gap 4 L BUN 4 L Creatinine 0.6 Creat Clearance w eGFR > 60 Random Glucose 96 Calcium 7.9 L Phosphorus 3.6 Magnesium 2.2 Iron TIBC Iron Saturation Total Bilirubin 0.6 AST 8 L ALT 12 L Alkaline Phosphatase 77 C-Reactive Protein Total Protein 5.6 L Albumin 2.5 L Urine Color Yellow Urine Appearance Clear Urine pH 5.0 Ur Specific [place] 1.014 Urine Protein Negative Urine Glucose (UA) Negative Urine Ketones 1+ H Urine Blood 1+ H Urine Nitrite Negative Urine Bilirubin Negative Urine Urobilinogen Negative Ur Leukocyte Esterase Negative Urine WBC (Auto) <1 Urine RBC (Auto) 2 Urine Osmolality Ur Random Sodium Ur Random Potassium Ur Random Chloride Tiss Transglutamin IgG Tiss Transglutamin IgA Hepatitis A Ab Total Hep Bs Antigen Hep Bs Antibody Hep B Core Total Ab Hep C Ab Diagnostic 11/04/18 06:00 WBC RBC Hgb Hct MCV MCH MCHC RDW Plt Count MPV Sodium Potassium Chloride Carbon Dioxide Anion Gap BUN Creatinine Creat Clearance w eGFR Random Glucose Calcium Phosphorus Magnesium Iron TIBC Iron Saturation Total Bilirubin AST ALT Alkaline Phosphatase C-Reactive Protein 10.0 H Total Protein Albumin Urine Color Urine Appearance Urine pH Ur Specific [place] Urine Protein Urine Glucose (UA) Urine Ketones Urine Blood Urine Nitrite Urine Bilirubin Urine Urobilinogen Ur Leukocyte Esterase Urine WBC (Auto) Urine RBC (Auto) Urine Osmolality Ur Random Sodium Ur Random Potassium Ur Random Chloride Tiss Transglutamin IgG Tiss Transglutamin IgA Hepatitis A Ab Total Hep Bs Antigen Hep Bs Antibody Hep B Core Total Ab Hep C Ab Diagnostic <Melinda Marlow - Last Filed: 11/04/18 12:30> - Current Medication List Current Medications: Active Medications Acetaminophen (Tylenol -) 650 mg PO Q6H PRN PRN Reason: Fever Or Pain Last Admin: 11/03/18 21:55 Dose: 650 mg Enoxaparin Sodium (Lovenox -) 40 mg SQ DAILY [facility] Last Admin: 11/06/18 09:14 Dose: 40 mg Folic Acid (Folic Acid -) 1 mg PO DAILY [facility] Last Admin: 11/06/18 09:14 Dose: 1 mg Piperacillin Sod/Tazobactam (Sod 3.375 gm/ Dextrose) 50 mls @ 100 mls/hr IVPB Q8H-IV [facility]; Protocol Last Admin: 11/07/18 01:34 Dose: 100 mls/hr Thiamine HCl (Vitamin B1 -) 100 mg PO DAILY [facility] Last Admin: 11/06/18 09:14 Dose: 100 mg - Objective Vital Signs: Vital Signs Temperature 97.8 F 11/07/18 06:00 Pulse Rate 94 H 11/07/18 06:00 Respiratory Rate 18 11/07/18 06:00 Blood Pressure 129/82 11/07/18 06:00 O2 Sat by Pulse Oximetry (%) 96 11/06/18 21:00 Labs: CBC, BMP 11/07/18 07:00 INR, PTT INR 1.24 (0.83-1.09) H 11/05/18 07:30 <Greyson Mccain - Last Filed: 11/07/18 09:30> Problem List - Problems (1) Diverticulitis large intestine Assessment/Plan: -surgery and GI on board -A/P CT scan: acute diverticulitis in the mid sigmoid colon without gross extraluminal air identified, suggestion of a small adjacent phlegmon measuring approximately 3cm without evidence of of a drainable abscess -tolerating clear liquid diet -IVF for hydration -continue IV zosyn Code(s): K57.32 - DVTRCLI OF LG INT W/O PERFORATION OR ABSCESS W/O BLEEDING (2) Abdominal pain Assessment/Plan: -GI and surgery on board -states abdominal pain is better -tolerating clear liquid diet -pain management Code(s): R10.9 - UNSPECIFIED ABDOMINAL PAIN (3) Hyponatremia Assessment/Plan: -continue on NS at 75cc/hr -most recent Na level 136, will continue to monitor -renal on board Code(s): E87.1 - HYPO-OSMOLALITY AND HYPONATREMIA (4) Alcohol dependence Assessment/Plan: -continue with thiamine and folate -continue with Librium Code(s): F10.20 - ALCOHOL DEPENDENCE, UNCOMPLICATED (5) Leukocytosis Assessment/Plan: -ID on board -WBC 9.3, will continue to monitor -continue with IV zosyn Code(s): D72.829 - ELEVATED WHITE BLOOD CELL COUNT, UNSPECIFIED Qualifiers: Leukocytosis type: other Qualified Code(s): D72.828 - Other elevated white blood cell count (6) Folliculitis Assessment/Plan: -derm consult placed -R/O scabies, continue contact until scabies ruled out Code(s): L73.9 - FOLLICULAR DISORDER, UNSPECIFIED (7) Diarrhea Assessment/Plan: -continue with clear liquid diet -GI on board -monitor temp and WBC, currently afebrile and WBC 9.3 Code(s): R19.7 - DIARRHEA, UNSPECIFIED <Melinda Marlow - Last Filed: 11/04/18 12:30> Assessment/Plan see problem list dvt ppx <Melinda Marlow - Last Filed: 11/04/18 12:30> PATIENT SEEN AND EXAMINED AND I AGREE WITH ABOVE NOTE <Greyson Mccain - Last Filed: 11/07/18 09:30>
--- NOTE | 2018-11-04 11:58 | PN ---
Progress Note, Physician History of Present Illness: Pt seen and examined at bedside. He is awake and alert. He denies shortness of breath. He is tolerating diet. - Current Medication List Current Medications: Active Medications Acetaminophen (Tylenol -) 650 mg PO Q6H PRN PRN Reason: Fever Or Pain Last Admin: 11/03/18 21:55 Dose: 650 mg Albuterol/Ipratropium (Duoneb -) 1 amp NEB RQID [facility] Last Admin: 11/04/18 09:30 Dose: 1 amp Chlordiazepoxide HCl (Librium -) 15 mg PO [id number] [facility] Stop: 11/04/18 17:01 Last Admin: 11/04/18 10:54 Dose: 15 mg Chlordiazepoxide HCl (Librium -) 10 mg PO [id number] [facility] Stop: 11/05/18 17:01 Enoxaparin Sodium (Lovenox -) 40 mg SQ DAILY [facility] Last Admin: 11/04/18 10:55 Dose: 40 mg Folic Acid (Folic Acid -) 1 mg PO DAILY [facility] Last Admin: 11/04/18 10:53 Dose: 1 mg Piperacillin Sod/Tazobactam (Sod 3.375 gm/ Dextrose) 50 mls @ 100 mls/hr IVPB Q8H-IV [facility]; Protocol Last Admin: 11/04/18 10:55 Dose: 100 mls/hr Sodium Chloride (Normal Saline -) 1,000 mls @ 75 mls/hr IV ASDIR [facility] Last Admin: 11/03/18 23:18 Dose: 75 mls/hr Thiamine HCl (Vitamin B1 -) 100 mg PO DAILY [facility] Last Admin: 11/04/18 10:53 Dose: 100 mg - Objective Vital Signs: Vital Signs Temperature 99.0 F 11/04/18 10:00 Pulse Rate 89 11/04/18 10:00 Respiratory Rate 20 11/04/18 10:00 Blood Pressure 134/77 11/04/18 10:00 O2 Sat by Pulse Oximetry (%) 95 11/03/18 21:00 Constitutional: Yes: Calm Eyes: Yes: Conjunctiva Clear HENT: Yes: Atraumatic Neck: Yes: Supple Cardiovascular: Yes: S1, S2 Respiratory: Yes: CTA Bilaterally Gastrointestinal: Yes: Normal Bowel Sounds, Soft Genitourinary: Yes: WNL Musculoskeletal: Yes: WNL Edema: No Integumentary: Yes: Other (lesions on abdomen) Neurological: Yes: Oriented Psychiatric: Yes: Oriented Labs: CBC, BMP 11/04/18 06:00 11/04/18 06:00 Problem List - Problems (1) COPD (chronic obstructive pulmonary disease) Code(s): J44.9 - CHRONIC OBSTRUCTIVE PULMONARY DISEASE, UNSPECIFIED Qualifiers: COPD type: unspecified COPD Qualified Code(s): J44.9 - Chronic obstructive pulmonary disease, unspecified (2) Diverticulitis Code(s): K57.92 - DVTRCLI OF INTEST, PART UNSP, W/O PERF OR ABSCESS W/O BLEED (3) Hyponatremia Code(s): E87.1 - HYPO-OSMOLALITY AND HYPONATREMIA (4) Abdominal pain Code(s): R10.9 - UNSPECIFIED ABDOMINAL PAIN (5) Alcohol dependence Code(s): F10.20 - ALCOHOL DEPENDENCE, UNCOMPLICATED Assessment/Plan Current Medications Generic Name Dose Route Start Last Admin Trade Name Freq PRN Reason Stop Dose Admin Acetaminophen 650 mg 11/02/18 05:56 11/03/18 21:55 Tylenol - PO 650 mg Q6H PRN Administration Fever Or Pain Albuterol/Ipratropium 1 amp 11/02/18 08:00 11/04/18 09:30 Duoneb - NEB 1 amp RQID [facility] Administration Chlordiazepoxide HCl 15 mg 11/03/18 23:00 11/04/18 10:54 Librium - PO 11/04/18 17:01 15 mg [id number] [facility] Administration Chlordiazepoxide HCl 10 mg 11/04/18 23:00 Librium - PO 11/05/18 17:01 [id number] [facility] Enoxaparin Sodium 40 mg 11/02/18 10:00 11/04/18 10:55 Lovenox - SQ 40 mg DAILY [facility] Administration Folic Acid 1 mg 11/02/18 10:00 11/04/18 10:53 Folic Acid - PO 1 mg DAILY [facility] Administration Piperacillin Sod/Tazobactam 50 mls @ 100 mls/hr 11/02/18 13:30 11/04/18 10:55 Sod 3.375 gm/ Dextrose IVPB 100 mls/hr Q8H-IV [facility] Administration Protocol Sodium Chloride 1,000 mls @ 75 mls/hr 11/03/18 11:30 11/03/18 23:18 Normal Saline - IV 75 mls/hr ASDIR [facility] Administration Thiamine HCl 100 mg 11/02/18 10:00 11/04/18 10:53 Vitamin B1 - PO 100 mg DAILY [facility] Administration Impression 1. hyponatremia 2. diverticulitis 3. hx etoh abuse 4. anemia 5. copd 6. microscopic hematuria Plan - decrease rate of saline - sodium stable - repeat ua - restrict free water when he starts eating - etoh abuse likely contributed to hyponatremia Dr Batista
--- NOTE | 2018-11-04 12:56 | PN ---
Progress Note (short form) - Note Progress Note: still with abdominal pain tolerating clears Vital Signs Period Temp Pulse Resp BP Sys/[place]ard Pulse Ox Last 24 Hr 98.1 F-100.6 F 87-112 16-20 109-134/62-77 95-96 cor-rrr lungs decreased bs at bases abd soft, less tenderness to palpation ext no edema +scaly rash on abdomen, dry skin on legs CBC, BMP 11/04/18 06:00 11/04/18 06:00 a/p fever diverticulitis with phlegmon leukocytosis resolving ETOH use-on librium COPD/cigarette use reports he is hiv negative hep status unknown continue zosyn wbc trending down Problem List - Problems (1) Fever Code(s): R50.9 - FEVER, UNSPECIFIED (2) Diverticulitis Code(s): K57.92 - DVTRCLI OF INTEST, PART UNSP, W/O PERF OR ABSCESS W/O BLEED (3) Alcohol use disorder Code(s): SEE6086 - (4) COPD (chronic obstructive pulmonary disease) Code(s): J44.9 - CHRONIC OBSTRUCTIVE PULMONARY DISEASE, UNSPECIFIED Qualifiers: COPD type: unspecified COPD Qualified Code(s): J44.9 - Chronic obstructive pulmonary disease, unspecified
[2018-11-04] MEDS: SODIUM CHLORIDE 1,000 ML IV SCH (14:44)
--- NOTE | 2018-11-04 18:23 | PN ---
GI Progress Note Subjective: GI NOte: Had pain and fever to 100.6 last night but has no pain or fever today. No signs of DTs on Librium - Objective Vital Signs: Vital Signs Temperature 98.8 F 11/04/18 14:48 Pulse Rate 78 11/04/18 14:48 Respiratory Rate 18 11/04/18 14:48 Blood Pressure 127/65 11/04/18 14:48 O2 Sat by Pulse Oximetry (%) 96 11/04/18 09:00 Laboratory Tests 11/03/18 11/03/18 11/04/18 06:30 06:30 06:00 WBC 14.8 H 9.3 C-Reactive Protein 14.2 H 11/04/18 06:00 WBC C-Reactive Protein 10.0 H Constitutional: Calm ...Auscultate: Yes: Normoactive Bowel Sounds ...Palpate: Yes: Soft, Other (nontender) Labs: CBC, BMP 11/04/18 06:00 11/04/18 06:00 Assessment/Plan Impression: Sigmoid diverticulitis with bladder impingement- improving Alcoholism and at risk for DTs Alcoholic liver disease with hepatomegaly Bilateral inguinal hernias Hyponatremia Scaly and pustular rash ? scabies, chronic folliculitis. ? fungal Plan: Continue current antibiotics Continue Librium detox Continue with trial of clear liquids. Seeking an available graphic design intern for consultation Problem List - Problems (1) Diverticulitis large intestine Code(s): K57.32 - DVTRCLI OF LG INT W/O PERFORATION OR ABSCESS W/O BLEEDING (2) Alcoholic liver disease Code(s): K70.9 - ALCOHOLIC LIVER DISEASE, UNSPECIFIED (3) Alcohol dependence Code(s): F10.20 - ALCOHOL DEPENDENCE, UNCOMPLICATED (4) Inguinal hernia recurrent bilateral Code(s): K40.21 - BILATERAL INGUINAL HERNIA, W/O OBST OR GANGRENE, RECURRENT (5) Folliculitis Code(s): L73.9 - FOLLICULAR DISORDER, UNSPECIFIED (6) COPD (chronic obstructive pulmonary disease) Code(s): J44.9 - CHRONIC OBSTRUCTIVE PULMONARY DISEASE, UNSPECIFIED Qualifiers: COPD type: unspecified COPD Qualified Code(s): J44.9 - Chronic obstructive pulmonary disease, unspecified (7) Hyponatremia Code(s): E87.1 - HYPO-OSMOLALITY AND HYPONATREMIA (8) Leukocytosis Code(s): D72.829 - ELEVATED WHITE BLOOD CELL COUNT, UNSPECIFIED Qualifiers: Leukocytosis type: other Qualified Code(s): D72.828 - Other elevated white blood cell count (9) Abdominal pain Code(s): R10.9 - UNSPECIFIED ABDOMINAL PAIN
--- NOTE | 2018-11-04 19:31 | PN ---
Progress Note, Physician History of Present Illness: 53yo M alcoholic, s/p recent detox stay at [facility], still drinking ~3 beers daily (much less than previous per pt), with COPD, hyponatremia, EtOH liver disease, anemia, admitted through ER to medicine with 2 weeks of lower abdominal pain beginning on the left, then radiating across whole lower abdomen and some into back. He denies n/v, but did have chills and diarrhea with this, as well as decreased appetite/po intake. He denies urinary symptoms. He has never had a colonoscopy. He does have a chronic skin condition with rash/ folliculitis of lower abdomen/groin/BLE. Workup was notable for wbc 14 which sirena to 18, normal LFTs, hyponatremia which has improved some with saline, and CT showing mid-sigmoid diverticulitis with phlegmon just above bladder but no drainable collection. He is seen and examined in bed. He reports less pain, but located more in LLQ. He is not clear whether drinking liquids makes the pain worse or not. He does not that he is urinating "a lot." He also had diarrhea overnight, thinks partly because of the liquids only, also likely related to the diverticulitis. He is having coffee with sugar, but would like to be able to eat more. The pustule at his left groin drained spontaneously today, and was dressed with gauze and tegaderm by the nurse. - Current Medication List Current Medications: Active Medications Acetaminophen (Tylenol -) 650 mg PO Q6H PRN PRN Reason: Fever Or Pain Last Admin: 11/03/18 21:55 Dose: 650 mg Albuterol/Ipratropium (Duoneb -) 1 amp NEB RQID [facility] Last Admin: 11/04/18 16:40 Dose: 1 amp Chlordiazepoxide HCl (Librium -) 10 mg PO [id number] [facility] Stop: 11/05/18 17:01 Enoxaparin Sodium (Lovenox -) 40 mg SQ DAILY [facility] Last Admin: 11/04/18 10:55 Dose: 40 mg Folic Acid (Folic Acid -) 1 mg PO DAILY [facility] Last Admin: 11/04/18 10:53 Dose: 1 mg Piperacillin Sod/Tazobactam (Sod 3.375 gm/ Dextrose) 50 mls @ 100 mls/hr IVPB Q8H-IV [facility]; Protocol Last Admin: 11/04/18 18:19 Dose: 100 mls/hr Sodium Chloride (Normal Saline -) 1,000 mls @ 75 mls/hr IV ASDIR [facility] Last Admin: 11/04/18 14:44 Dose: 75 mls/hr Thiamine HCl (Vitamin B1 -) 100 mg PO DAILY [facility] Last Admin: 11/04/18 10:53 Dose: 100 mg - Objective Vital Signs: Vital Signs Temperature 98.8 F 11/04/18 14:48 Pulse Rate 78 11/04/18 14:48 Respiratory Rate 18 11/04/18 14:48 Blood Pressure 127/65 11/04/18 14:48 O2 Sat by Pulse Oximetry (%) 96 11/04/18 09:00 Constitutional: Yes: No Distress, Calm, Thin Eyes: Yes: Conjunctiva Clear, EOM Intact HENT: Yes: Atraumatic, Normocephalic Gastrointestinal: Yes: Normal Bowel Sounds, Soft, Hernia (inguinals), Tenderness (mild LLQ, mild suprapubic (more that it makes him feel the need to urinate), no jolie/guarding) Extremities: Yes: Erythema (BLE). No: Cool, Cyanosis Integumentary: Yes: Rash (stable on lower abdomen/groins - slightly less erythematous). No: Jaundice Wound/Incision: Yes: Dressing Dry and Intact (with some pink staining on gauze at left groin). No: Dressing Removed Neurological: Yes: Alert, Oriented, Tremors (bilateral hands/arms) Labs: CBC, BMP 11/04/18 06:00 11/04/18 06:00 wbc down from 14 Urine Test Results Urine Color Yellow 11/03/18 11:40 Urine Appearance Clear 11/03/18 11:40 Urine pH 5.0 (5.0-8.0) 11/03/18 11:40 Ur Specific [place] 1.014 (1.010-1.035) 11/03/18 11:40 Urine Protein Negative (NEGATIVE) 11/03/18 11:40 Urine Glucose (UA) Negative (NEGATIVE) 11/03/18 11:40 Urine Ketones 1+ (NEGATIVE) H 11/03/18 11:40 Urine Blood 1+ (NEGATIVE) H 11/03/18 11:40 Urine Nitrite Negative (NEGATIVE) 11/03/18 11:40 Urine Bilirubin Negative (<2.0 mg/dL) 11/03/18 11:40 Ur Leukocyte Esterase Negative (NEGATIVE) 11/03/18 11:40 Problem List - Problems (1) Diverticulitis of large intestine with complication Assessment/Plan: phlegmon present but no drainable abscess tolerating clears, but unclear if pain keeps coming with drinking liquids will reexamine tomorrow afternoon to see if advancing to fulls would be reasonable continue clears for now IV antibiotics per ID L groin pustule drained keep dressed with gauze and teg or tape GI/DVT prophylaxis COPD/EtOH management per primary team pt's abdominal skin condition makes him a poor candidate for colostomy surgery would likely involve needing colostomy, if diverticulitis does not improve with conservative measures, or he has gross perforation - would like to avoid if at all possible please check coags and obtain T&S also stressed to patient that he will need colonoscopy 6-8 weeks after resolution of this episode Code(s): K57.32 - DVTRCLI OF LG INT W/O PERFORATION OR ABSCESS W/O BLEEDING (2) LLQ pain Assessment/Plan: improved but not resolved Code(s): R10.32 - LEFT LOWER QUADRANT PAIN (3) Leukocytosis Assessment/Plan: decreasing, 9 today Code(s): D72.829 - ELEVATED WHITE BLOOD CELL COUNT, UNSPECIFIED Qualifiers: Leukocytosis type: other Qualified Code(s): D72.828 - Other elevated white blood cell count (4) Alcoholic liver disease Code(s): K70.9 - ALCOHOLIC LIVER DISEASE, UNSPECIFIED (5) COPD (chronic obstructive pulmonary disease) Assessment/Plan: still with chronic cough Code(s): J44.9 - CHRONIC OBSTRUCTIVE PULMONARY DISEASE, UNSPECIFIED Qualifiers: COPD type: unspecified COPD Qualified Code(s): J44.9 - Chronic obstructive pulmonary disease, unspecified (6) Hyponatremia Assessment/Plan: improved, stable Code(s): E87.1 - HYPO-OSMOLALITY AND HYPONATREMIA (7) Folliculitis Code(s): L73.9 - FOLLICULAR DISORDER, UNSPECIFIED
[2018-11-04] MEDS ORDERED: PT OWN MED DRAWER 7, Y5N ONE ×2 (21:19→22:18)
[2018-11-05] MEDS ORDERED: PIPERACILLIN/TAZOBACTAM 3.375 GM VIAL IVPB ONE ×3 (01:13→16:59)
[2018-11-05] MEDS ORDERED: DEXTROSE 5%-WATER - 50 ML IVPB ONE ×3 (01:13→16:59)
[2018-11-05] MEDS: PIPERACILLIN/TAZOB 3.375 GM 3.375 GM in DEXTROSE 5%-WATER - 50 ML IVPB SCH ×3 (01:29→17:02)
[2018-11-05] MEDS: chlordiazePOXIDE 5 MG CAPSULE PO SCH ×3 (05:15→17:01)
[2018-11-05] MEDS: SODIUM CHLORIDE 1,000 ML IV SCH (05:17)
[2018-11-05 08:15] LABS: HEMATOCRIT 34.5 % (35.4-49); HEMOGLOBIN 11.9 GM/dL (11.7-16.9); MCHC 34.5 g/dl (32.0-35.9); MEAN CELL VOLUME 92.9 fl (80-96); MEAN PLT VOLUME 6.6 fl (7.5-11.1); PLATELET COUNT 350 K/MM3 (134-434); RBC 3.71 M/mm3 (4.00-5.60); RDW 12.5 % (11.9-15.9); WHITE BLOOD COUNT 6.5 K/mm3 (4.0-10.0)
[2018-11-05 08:21] LABS: INR 1.24 (0.83-1.09); PROTHROMBIN TIME (PATIENT) 14.7 SEC (9.7-13.0)
[2018-11-05 08:41] LABS: ALBUMIN 2.7 g/dl (3.4-5.0); ALK PHOS 73 U/L (45-117); ANION GAP 7 MMOL/L (8-16); BILIRUBIN,TOTAL 0.3 mg/dL (0.2-1); CALCIUM 8.3 mg/dL (8.5-10.1); CHLORIDE 100 mmol/L (98-107); CO2 30 mmol/L (21-32); CREATININE 0.7 mg/dL (0.55-1.3); GLUCOSE,RANDOM 94 mg/dL (74-106); POTASSIUM 3.5 mmol/L (3.5-5.1); SGOT/AST 6 U/L (15-37); SGPT/ALT 15 U/L (13-61); SODIUM 137 mmol/L (136-145); TOT PROT 5.7 g/dl (6.4-8.2)
[2018-11-05] MEDS: ALBUTEROL SO4 2.5/IPRATROPIUM 0.5 INH SOL 3 ML VIAL.NEB. NEB SCH ×4 (08:50→20:13)
[2018-11-05 09:00] LABS: BLOOD UREA NITROGEN 2 mg/dL (7-18)
[2018-11-05] MEDS ORDERED: PT OWN MED DRAWER 7, Y5N ONE (09:42)
[2018-11-05] MEDS: FOLIC ACID 1 MG TABLET (FP) PO SCH (09:45)
[2018-11-05] MEDS: THIAMINE HCL 100 MG TABLET (FP) PO SCH (09:45)
[2018-11-05] MEDS: ENOXAPARIN NA (PORCINE) 40 MG/0.4 ML DISP.SYRIN SQ SCH (09:46)
--- NOTE | 2018-11-05 10:36 | PN ---
Progress Note, Physician Chief Complaint: Diverticulitis Hyponatremia History of Present Illness: Previous notes and events reviewed awake and alert NAD denies chest pain, abdominal pain, SOB sts diarrhea is improving, only 1 episode during the night tolerating clear liquid diet - Current Medication List Current Medications: Active Medications Acetaminophen (Tylenol -) 650 mg PO Q6H PRN PRN Reason: Fever Or Pain Last Admin: 11/03/18 21:55 Dose: 650 mg Albuterol/Ipratropium (Duoneb -) 1 amp NEB RQID [facility] Last Admin: 11/04/18 20:50 Dose: 1 amp Chlordiazepoxide HCl (Librium -) 10 mg PO [id number] [facility] Stop: 11/05/18 17:01 Last Admin: 11/05/18 05:15 Dose: 10 mg Enoxaparin Sodium (Lovenox -) 40 mg SQ DAILY [facility] Last Admin: 11/05/18 09:46 Dose: 40 mg Folic Acid (Folic Acid -) 1 mg PO DAILY [facility] Last Admin: 11/05/18 09:45 Dose: 1 mg Piperacillin Sod/Tazobactam (Sod 3.375 gm/ Dextrose) 50 mls @ 100 mls/hr IVPB Q8H-IV [facility]; Protocol Last Admin: 11/05/18 09:45 Dose: 100 mls/hr Sodium Chloride (Normal Saline -) 1,000 mls @ 75 mls/hr IV ASDIR [facility] Last Admin: 11/05/18 05:17 Dose: 75 mls/hr Thiamine HCl (Vitamin B1 -) 100 mg PO DAILY [facility] Last Admin: 11/05/18 09:45 Dose: 100 mg - Objective Vital Signs: Vital Signs Temperature 97.5 F L 11/05/18 07:13 Pulse Rate 72 11/05/18 07:13 Respiratory Rate 20 11/05/18 07:13 Blood Pressure 130/74 11/05/18 07:13 O2 Sat by Pulse Oximetry (%) 96 11/04/18 21:00 Constitutional: Yes: No Distress, Calm Eyes: Yes: Conjunctiva Clear HENT: Yes: Atraumatic Cardiovascular: Yes: Regular Rate and Rhythm Respiratory: Yes: Regular, CTA Bilaterally Gastrointestinal: Yes: Normal Bowel Sounds, Soft, Other (minor tenderness LLQ) Musculoskeletal: Yes: WNL Extremities: Yes: WNL Edema: No Integumentary: Yes: Other (rash noted to abdomen) Wound/Incision: Yes: Dressing Dry and Intact (L groin) Neurological: Yes: Alert, Oriented Psychiatric: Yes: Alert, Oriented Labs: CBC, BMP 11/05/18 07:30 11/05/18 07:30 INR, PTT INR 1.24 (0.83-1.09) H 11/05/18 07:30 Laboratory Results - last 24 hr 11/03/18 11/05/18 11/05/18 06:30 07:30 07:30 WBC 6.5 RBC 3.71 L Hgb 11.9 Hct 34.5 L MCV 92.9 MCH 32.0 MCHC 34.5 RDW 12.5 Plt Count 350 MPV 6.6 L PT with INR INR Sodium 137 Potassium 3.5 Chloride 100 Carbon Dioxide 30 Anion Gap 7 L BUN 2 L* Creatinine 0.7 Creat Clearance w eGFR > 60 Random Glucose 94 Calcium 8.3 L Total Bilirubin 0.3 AST 6 L ALT 15 Alkaline Phosphatase 73 Total Protein 5.7 L Albumin 2.7 L DANIS Screen Negative Smooth [employer] Intrp 11 Blood Type Antibody Screen 11/05/18 11/05/18 07:30 07:30 WBC RBC Hgb Hct MCV MCH MCHC RDW Plt Count MPV PT with INR 14.70 H INR 1.24 H Sodium Potassium Chloride Carbon Dioxide Anion Gap BUN Creatinine Creat Clearance w eGFR Random Glucose Calcium Total Bilirubin AST ALT Alkaline Phosphatase Total Protein Albumin DANIS Screen Smooth Musc &MILL [employer]ACHINIST Intrp Blood Type A POSITIVE Antibody Screen Negative <Melinda Marlow - Last Filed: 11/05/18 11:10> - Current Medication List Current Medications: Active Medications Acetaminophen (Tylenol -) 650 mg PO Q6H PRN PRN Reason: Fever Or Pain Last Admin: 11/03/18 21:55 Dose: 650 mg Enoxaparin Sodium (Lovenox -) 40 mg SQ DAILY [facility] Last Admin: 11/06/18 09:14 Dose: 40 mg Folic Acid (Folic Acid -) 1 mg PO DAILY [facility] Last Admin: 11/06/18 09:14 Dose: 1 mg Piperacillin Sod/Tazobactam (Sod 3.375 gm/ Dextrose) 50 mls @ 100 mls/hr IVPB Q8H-IV [facility]; Protocol Last Admin: 11/07/18 01:34 Dose: 100 mls/hr Thiamine HCl (Vitamin B1 -) 100 mg PO DAILY [facility] Last Admin: 11/06/18 09:14 Dose: 100 mg - Objective Vital Signs: Vital Signs Temperature 97.8 F 11/07/18 06:00 Pulse Rate 94 H 11/07/18 06:00 Respiratory Rate 18 11/07/18 06:00 Blood Pressure 129/82 11/07/18 06:00 O2 Sat by Pulse Oximetry (%) 96 11/06/18 21:00 Labs: CBC, BMP 11/07/18 07:00 INR, PTT INR 1.24 (0.83-1.09) H 11/05/18 07:30 <Greyson Mccain - Last Filed: 11/07/18 09:29> Problem List - Problems (1) Diverticulitis large intestine Assessment/Plan: -surgery and GI on board -A/P CT scan: acute diverticulitis in the mid sigmoid colon without gross extraluminal air identified, suggestion of a small adjacent phlegmon measuring approximately 3cm without evidence of of a drainable abscess -tolerating clear liquid diet, if tolerates advanced diet will then discharge to SNF -IVF for hydration -continue IV zosyn Code(s): K57.32 - DVTRCLI OF LG INT W/O PERFORATION OR ABSCESS W/O BLEEDING (2) Abdominal pain Assessment/Plan: -GI and surgery on board -states abdominal pain is better -tolerating clear liquid diet -pain management Code(s): R10.9 - UNSPECIFIED ABDOMINAL PAIN (3) Hyponatremia Assessment/Plan: -continue on NS at 75cc/hr -most recent Na level 137, will continue to monitor -renal on board Code(s): E87.1 - HYPO-OSMOLALITY AND HYPONATREMIA (4) Alcohol dependence Assessment/Plan: -continue with thiamine and folate -continue with Librium -after complete librium taper will discharge to SNF -no DTs noted Code(s): F10.20 - ALCOHOL DEPENDENCE, UNCOMPLICATED (5) Leukocytosis Assessment/Plan: -ID on board -WBC 6.5, will continue to monitor -continue with IV zosyn Code(s): D72.829 - ELEVATED WHITE BLOOD CELL COUNT, UNSPECIFIED Qualifiers: Leukocytosis type: other Qualified Code(s): D72.828 - Other elevated white blood cell count (6) Folliculitis Assessment/Plan: -derm consult placed -R/O scabies, continue contact until scabies ruled out Code(s): L73.9 - FOLLICULAR DISORDER, UNSPECIFIED (7) Diarrhea Assessment/Plan: -continue with clear liquid diet -GI on board -as per pt diarrhea improving -monitor temp and WBC, currently afebrile and WBC 6.5 Code(s): R19.7 - DIARRHEA, UNSPECIFIED (8) Low blood urea nitrogen (BUN) Assessment/Plan: -currently BUN level is 2 -consulted renal -will continue to monitor level Code(s): R79.89 - OTHER SPECIFIED ABNORMAL FINDINGS OF BLOOD CHEMISTRY <Melinda Marlow - Last Filed: 11/05/18 11:10> Assessment/Plan see problem list dvt ppx <Melinda Marlow - Last Filed: 11/05/18 11:10> PATIENT SEEN AND EXAMINED AND I AGREE WITH ABOVE NOTE <Greyson Mccain - Last Filed: 11/07/18 09:29>
--- NOTE | 2018-11-05 16:33 | PN ---
Progress Note, Physician History of Present Illness: Pt seen and examined at bedside. He is awake and alert. He is tolerating clears. - Current Medication List Current Medications: Active Medications Acetaminophen (Tylenol -) 650 mg PO Q6H PRN PRN Reason: Fever Or Pain Last Admin: 11/03/18 21:55 Dose: 650 mg Albuterol/Ipratropium (Duoneb -) 1 amp NEB RQID [facility] Last Admin: 11/05/18 14:39 Dose: 1 amp Chlordiazepoxide HCl (Librium -) 10 mg PO [id number] [facility] Stop: 11/05/18 17:01 Last Admin: 11/05/18 11:06 Dose: 10 mg Enoxaparin Sodium (Lovenox -) 40 mg SQ DAILY [facility] Last Admin: 11/05/18 09:46 Dose: 40 mg Folic Acid (Folic Acid -) 1 mg PO DAILY [facility] Last Admin: 11/05/18 09:45 Dose: 1 mg Piperacillin Sod/Tazobactam (Sod 3.375 gm/ Dextrose) 50 mls @ 100 mls/hr IVPB Q8H-IV [facility]; Protocol Last Admin: 11/05/18 09:45 Dose: 100 mls/hr Sodium Chloride (Normal Saline -) 1,000 mls @ 75 mls/hr IV ASDIR [facility] Last Admin: 11/05/18 05:17 Dose: 75 mls/hr Thiamine HCl (Vitamin B1 -) 100 mg PO DAILY [facility] Last Admin: 11/05/18 09:45 Dose: 100 mg - Objective Vital Signs: Vital Signs Temperature 97.2 F L 11/05/18 14:17 Pulse Rate 91 H 11/05/18 14:17 Respiratory Rate 18 11/05/18 14:17 Blood Pressure 132/83 11/05/18 14:17 O2 Sat by Pulse Oximetry (%) 96 11/04/18 21:00 Constitutional: Yes: Calm Eyes: Yes: Conjunctiva Clear HENT: Yes: Atraumatic Neck: Yes: Supple Cardiovascular: Yes: S1, S2 Respiratory: Yes: CTA Bilaterally Gastrointestinal: Yes: Soft Genitourinary: Yes: WNL Musculoskeletal: Yes: WNL Edema: No Neurological: Yes: Oriented Labs: CBC, BMP 11/05/18 07:30 11/05/18 07:30 INR, PTT INR 1.24 (0.83-1.09) H 11/05/18 07:30 Problem List - Problems (1) COPD (chronic obstructive pulmonary disease) Code(s): J44.9 - CHRONIC OBSTRUCTIVE PULMONARY DISEASE, UNSPECIFIED Qualifiers: COPD type: unspecified COPD Qualified Code(s): J44.9 - Chronic obstructive pulmonary disease, unspecified (2) Diverticulitis Code(s): K57.92 - DVTRCLI OF INTEST, PART UNSP, W/O PERF OR ABSCESS W/O BLEED (3) Hyponatremia Code(s): E87.1 - HYPO-OSMOLALITY AND HYPONATREMIA (4) Abdominal pain Code(s): R10.9 - UNSPECIFIED ABDOMINAL PAIN (5) Alcohol dependence Code(s): F10.20 - ALCOHOL DEPENDENCE, UNCOMPLICATED Assessment/Plan Current Medications Generic Name Dose Route Start Last Admin Trade Name Freq PRN Reason Stop Dose Admin Acetaminophen 650 mg 11/02/18 05:56 11/03/18 21:55 Tylenol - PO 650 mg Q6H PRN Administration Fever Or Pain Albuterol/Ipratropium 1 amp 11/02/18 08:00 11/05/18 14:39 Duoneb - NEB 1 amp RQID [facility] Administration Chlordiazepoxide HCl 10 mg 11/04/18 23:00 11/05/18 11:06 Librium - PO 11/05/18 17:01 10 mg [id number] [facility] Administration Enoxaparin Sodium 40 mg 11/02/18 10:00 11/05/18 09:46 Lovenox - SQ 40 mg DAILY [facility] Administration Folic Acid 1 mg 11/02/18 10:00 11/05/18 09:45 Folic Acid - PO 1 mg DAILY [facility] Administration Piperacillin Sod/Tazobactam 50 mls @ 100 mls/hr 11/02/18 13:30 11/05/18 09:45 Sod 3.375 gm/ Dextrose IVPB 100 mls/hr Q8H-IV [facility] Administration Protocol Sodium Chloride 1,000 mls @ 75 mls/hr 11/03/18 11:30 11/05/18 05:17 Normal Saline - IV 75 mls/hr ASDIR [facility] Administration Thiamine HCl 100 mg 11/02/18 10:00 11/05/18 09:45 Vitamin B1 - PO 100 mg DAILY [facility] Administration Impression 1. hyponatremia 2. diverticulitis 3. hx etoh abuse 4. anemia 5. copd 6. microscopic hematuria Plan - sodium stable - repeat labs in am - will d/c fluids and observe - etoh abuse likely contributed to hyponatremia Dr Batista
--- NOTE | 2018-11-05 17:10 | PN ---
Progress Note, Physician History of Present Illness: 53yo M alcoholic, s/p recent detox stay at [facility], still drinking ~3 beers daily (much less than previous per pt), with COPD, hyponatremia, EtOH liver disease, anemia, admitted through ER to medicine with 2 weeks of lower abdominal pain beginning on the left, then radiating across whole lower abdomen and some into back. He denies n/v, but did have chills and diarrhea with this, as well as decreased appetite/po intake. He denies urinary symptoms. He has never had a colonoscopy. He does have a chronic skin condition/psoriasis with rash/folliculitis of lower abdomen/groin/BLE. Workup was notable for wbc 14 which initially sirena to 18, normal LFTs, hyponatremia which has improved some with saline, and CT showing mid-sigmoid diverticulitis with phlegmon just above bladder but no drainable collection. He is seen and examined in his room. He reports no sig pain, but some discomfort at times, in middle and on left. He has not had increase in pain with fluid intake. Wants some coffee and oatmeal. He had a stool accident overnight, brown and mushy. He was told by someone that he might be discharged "to rehab" when the time comes and is confused by what that means. - Current Medication List Current Medications: Active Medications Acetaminophen (Tylenol -) 650 mg PO Q6H PRN PRN Reason: Fever Or Pain Last Admin: 11/03/18 21:55 Dose: 650 mg Albuterol/Ipratropium (Duoneb -) 1 amp NEB RQID [facility] Last Admin: 11/05/18 14:39 Dose: 1 amp Enoxaparin Sodium (Lovenox -) 40 mg SQ DAILY [facility] Last Admin: 11/05/18 09:46 Dose: 40 mg Folic Acid (Folic Acid -) 1 mg PO DAILY [facility] Last Admin: 11/05/18 09:45 Dose: 1 mg Piperacillin Sod/Tazobactam (Sod 3.375 gm/ Dextrose) 50 mls @ 100 mls/hr IVPB Q8H-IV [facility]; Protocol Last Admin: 11/05/18 17:02 Dose: 100 mls/hr Thiamine HCl (Vitamin B1 -) 100 mg PO DAILY [facility] [place] Last Admin: 11/05/18 09:45 Dose: 100 mg - Objective Vital Signs: Vital Signs Temperature 97.2 F L 11/05/18 14:17 Pulse Rate 91 H 11/05/18 14:17 Respiratory Rate 18 11/05/18 14:17 Blood Pressure 132/83 11/05/18 14:17 O2 Sat by Pulse Oximetry (%) 96 11/04/18 21:00 Constitutional: Yes: No Distress, Calm, Thin Eyes: Yes: Conjunctiva Clear, EOM Intact HENT: Yes: Atraumatic, Normocephalic Gastrointestinal: Yes: Soft, Hernia (inguinals), Tenderness (mild/minimal suprapubic, with sensation of needing to void), Other (L groin pustule dressed with gauze and tegaderm, small spot of pink strikethrough). No: Distention, Tenderness, Rebound Extremities: No: Cool, Cyanosis Integumentary: Yes: Rash (lower abdomen/groins/legs). No: Jaundice Wound/Incision: Yes: Dressing Dry and Intact (on left groin). No: Dressing Removed Neurological: Yes: Alert, Oriented, Tremors Labs: CBC, BMP 11/05/18 07:30 11/05/18 07:30 INR, PTT INR 1.24 (0.83-1.09) H 11/05/18 07:30 Problem List - Problems (1) Diverticulitis of large intestine with complication Assessment/Plan: phlegmon present but no drainable abscess tolerating clears, no worsening of pain with liquids will advance to fulls and see how he tolerates need to go slow with diet IV antibiotics per ID L groin pustule drained spontaneously keep dressed with gauze and teg or tape - change daily/prn GI/DVT prophylaxis COPD/EtOH management per primary team pt's abdominal skin condition makes him a poor candidate for colostomy surgery would likely involve needing colostomy, if diverticulitis does not improve with conservative measures, or he has gross perforation - would like to avoid if at all possible also stressed to patient that he will need colonoscopy 6-8 weeks after resolution of this episode per primary team note, plan is for SNF - unclear for what needs, unless to ensure he gets full course of antibiotics after discharge? Code(s): K57.32 - DVTRCLI OF LG INT W/O PERFORATION OR ABSCESS W/O BLEEDING (2) LLQ pain Assessment/Plan: improved Code(s): R10.32 - LEFT LOWER QUADRANT PAIN (3) Leukocytosis Assessment/Plan: resolved to normal Code(s): D72.829 - ELEVATED WHITE BLOOD CELL COUNT, UNSPECIFIED Qualifiers: Leukocytosis type: other Qualified Code(s): D72.828 - Other elevated white blood cell count (4) Alcoholic liver disease Code(s): K70.9 - ALCOHOLIC LIVER DISEASE, UNSPECIFIED (5) COPD (chronic obstructive pulmonary disease) Assessment/Plan: still with chronic cough Code(s): J44.9 - CHRONIC OBSTRUCTIVE PULMONARY DISEASE, UNSPECIFIED Qualifiers: COPD type: unspecified COPD Qualified Code(s): J44.9 - Chronic obstructive pulmonary disease, unspecified (6) Hyponatremia Assessment/Plan: improved, stable - IVF stopped by nephrology Code(s): E87.1 - HYPO-OSMOLALITY AND HYPONATREMIA (7) Folliculitis Code(s): L73.9 - FOLLICULAR DISORDER, UNSPECIFIED
[2018-11-06] MEDS ORDERED: PIPERACILLIN/TAZOBACTAM 3.375 GM VIAL IVPB ONE ×3 (01:26→18:01)
[2018-11-06] MEDS ORDERED: DEXTROSE 5%-WATER - 50 ML IVPB ONE ×3 (01:26→18:02)
[2018-11-06] MEDS: PIPERACILLIN/TAZOB 3.375 GM 3.375 GM in DEXTROSE 5%-WATER - 50 ML IVPB SCH ×3 (02:09→18:05)
[2018-11-06 07:46] LABS: HEMOGLOBIN 12.6 GM/dL (11.7-16.9); MCH 31.8 pg (25.7-33.7); MEAN CELL VOLUME 93.5 fl (80-96); MEAN PLT VOLUME 6.8 fl (7.5-11.1); PLATELET COUNT 366 K/MM3 (134-434); RBC 3.96 M/mm3 (4.00-5.60); RDW 12.7 % (11.9-15.9); WHITE BLOOD COUNT 6.3 K/mm3 (4.0-10.0)
[2018-11-06] MEDS: ALBUTEROL SO4 2.5/IPRATROPIUM 0.5 INH SOL 3 ML VIAL.NEB. NEB SCH ×4 (07:49→20:00)
[2018-11-06 08:18] LABS: ALBUMIN 2.7 g/dl (3.4-5.0); ALK PHOS 77 U/L (45-117); ANION GAP 9 MMOL/L (8-16); BILIRUBIN,TOTAL 0.4 mg/dL (0.2-1); CALCIUM 8.2 mg/dL (8.5-10.1); CHLORIDE 101 mmol/L (98-107); CO2 27 mmol/L (21-32); CREATININE 0.7 mg/dL (0.55-1.3); GLUCOSE,RANDOM 77 mg/dL (74-106); POTASSIUM 3.5 mmol/L (3.5-5.1); SGOT/AST 12 U/L (15-37); SGPT/ALT 21 U/L (13-61); SODIUM 137 mmol/L (136-145); TOT PROT 6.3 g/dl (6.4-8.2)
[2018-11-06] MEDS: FOLIC ACID 1 MG TABLET (FP) PO SCH (09:14)
[2018-11-06] MEDS: THIAMINE HCL 100 MG TABLET (FP) PO SCH (09:14)
[2018-11-06] MEDS: ENOXAPARIN NA (PORCINE) 40 MG/0.4 ML DISP.SYRIN SQ SCH (09:14)
--- NOTE | 2018-11-06 10:18 | PN ---
Progress Note, Physician Chief Complaint: Diverticulitis Hyponatremia History of Present Illness: Previous notes and events reviewed awake and alert NAD patient complain of LLQ pain and noticed having an episode of black stools during the night afebrile and wbc 6.3 - Current Medication List Current Medications: Active Medications Acetaminophen (Tylenol -) 650 mg PO Q6H PRN PRN Reason: Fever Or Pain Last Admin: 11/03/18 21:55 Dose: 650 mg Albuterol/Ipratropium (Duoneb -) 1 amp NEB RQID [facility] Last Admin: 11/06/18 07:49 Dose: 1 amp Enoxaparin Sodium (Lovenox -) 40 mg SQ DAILY [facility] Last Admin: 11/06/18 09:14 Dose: 40 mg Folic Acid (Folic Acid -) 1 mg PO DAILY [facility] Last Admin: 11/06/18 09:14 Dose: 1 mg Piperacillin Sod/Tazobactam (Sod 3.375 gm/ Dextrose) 50 mls @ 100 mls/hr IVPB Q8H-IV [facility]; Protocol Last Admin: 11/06/18 09:13 Dose: 100 mls/hr Thiamine HCl (Vitamin B1 -) 100 mg PO DAILY [facility] Last Admin: 11/06/18 09:14 Dose: 100 mg - Objective Vital Signs: Vital Signs Temperature 97.6 F 11/06/18 06:00 Pulse Rate 89 11/06/18 06:00 Respiratory Rate 18 11/06/18 06:00 Blood Pressure 125/54 L 11/06/18 06:00 O2 Sat by Pulse Oximetry (%) 96 11/05/18 21:00 Constitutional: Yes: No Distress, Calm Eyes: Yes: Conjunctiva Clear HENT: Yes: Atraumatic Cardiovascular: Yes: Regular Rate and Rhythm Respiratory: Yes: Regular, CTA Bilaterally Gastrointestinal: Yes: Normal Bowel Sounds, Soft, Tenderness (LLQ) Musculoskeletal: Yes: WNL Extremities: Yes: WNL Integumentary: Yes: Other (rash noted to abdomen) Neurological: Yes: Alert, Oriented Psychiatric: Yes: Alert, Oriented Labs: CBC, BMP 11/06/18 06:30 11/06/18 06:30 INR, PTT INR 1.24 (0.83-1.09) H 11/05/18 07:30 <Melinda Marlow - Last Filed: 11/06/18 10:14> - Current Medication List Current Medications: Active Medications Acetaminophen (Tylenol -) 650 mg PO Q6H PRN PRN Reason: Fever Or Pain Last Admin: 11/03/18 21:55 Dose: 650 mg Enoxaparin Sodium (Lovenox -) 40 mg SQ DAILY [facility] Last Admin: 11/06/18 09:14 Dose: 40 mg Folic Acid (Folic Acid -) 1 mg PO DAILY [facility] Last Admin: 11/06/18 09:14 Dose: 1 mg Piperacillin Sod/Tazobactam (Sod 3.375 gm/ Dextrose) 50 mls @ 100 mls/hr IVPB Q8H-IV [facility]; Protocol Last Admin: 11/07/18 01:34 Dose: 100 mls/hr Thiamine HCl (Vitamin B1 -) 100 mg PO DAILY [facility] Last Admin: 11/06/18 09:14 Dose: 100 mg - Objective Vital Signs: Vital Signs Temperature 97.8 F 11/07/18 06:00 Pulse Rate 94 H 11/07/18 06:00 Respiratory Rate 18 11/07/18 06:00 Blood Pressure 129/82 11/07/18 06:00 O2 Sat by Pulse Oximetry (%) 96 11/06/18 21:00 Labs: CBC, BMP 11/07/18 07:00 INR, PTT INR 1.24 (0.83-1.09) H 11/05/18 07:30 <Greyson Mccain - Last Filed: 11/07/18 09:28> Problem List - Problems (1) Diverticulitis large intestine Assessment/Plan: -surgery and GI on board -A/P CT scan: acute diverticulitis in the mid sigmoid colon without gross extraluminal air identified, suggestion of a small adjacent phlegmon measuring approximately 3cm without evidence of of a drainable abscess -tolerating clear liquid diet -continue IV zosyn -Stool OB ordered Code(s): K57.32 - DVTRCLI OF LG INT W/O PERFORATION OR ABSCESS W/O BLEEDING (2) Abdominal pain Assessment/Plan: -GI and surgery on board -tolerating clear liquid diet -pain management Code(s): R10.9 - UNSPECIFIED ABDOMINAL PAIN (3) Hyponatremia Assessment/Plan: -most recent Na level 137, will continue to monitor -renal on board Code(s): E87.1 - HYPO-OSMOLALITY AND HYPONATREMIA (4) Alcohol dependence Assessment/Plan: -continue with thiamine and folate -continue with Librium -no DTs noted Code(s): F10.20 - ALCOHOL DEPENDENCE, UNCOMPLICATED (5) Leukocytosis Assessment/Plan: -ID on board -WBC 6.3 will continue to monitor -continue with IV zosyn Code(s): D72.829 - ELEVATED WHITE BLOOD CELL COUNT, UNSPECIFIED Qualifiers: Leukocytosis type: other Qualified Code(s): D72.828 - Other elevated white blood cell count (6) Folliculitis Assessment/Plan: -derm consult placed -R/O scabies, continue contact until scabies ruled out Code(s): L73.9 - FOLLICULAR DISORDER, UNSPECIFIED (7) Diarrhea Assessment/Plan: -continue with clear liquid diet -GI on board -as per pt diarrhea improving only one episode during the night -monitor temp and WBC, currently afebrile and WBC 6.3 Code(s): R19.7 - DIARRHEA, UNSPECIFIED (8) Low blood urea nitrogen (BUN) Assessment/Plan: -currently BUN level is 2 -renal on board -will continue to monitor level Code(s): R79.89 - OTHER SPECIFIED ABNORMAL FINDINGS OF BLOOD CHEMISTRY <Melinda Marlow - Last Filed: 11/06/18 10:14> Assessment/Plan see problem list dvt ppx <Melinda Marlow - Last Filed: 11/06/18 10:14> PATIENT SEEN AND EXAMINED AND I AGREE WITH ABOVE NOTE <Greyson Mccain - Last Filed: 11/07/18 09:28>
[2018-11-06 12:51] LABS: BLOOD UREA NITROGEN 2 mg/dL (7-18)
--- NOTE | 2018-11-06 15:11 | PN ---
Progress Note (short form) - Note Progress Note: still with abdominal pain but improved hungry tolerating liquid diet no diarrhea Vital Signs Period Temp Pulse Resp BP Sys/Ballard Pulse Ox Last 24 Hr 97.2 F-98.1 F 80-97 18-18 125-142/54-89 96 cor-rrr lungs clear abd soft, still some left sided abdominal pain- minimal to palpation ext no edema dry skin on rash, old scarring on abdomen CBC, BMP 11/06/18 06:30 11/06/18 06:30 fever diverticulitis with phlegmon leukocytosis ETOH use COPD/cigarette use reports he is hiv negative hep status negative continue zosyn-day #4 antibiotics can switch to po augmentin when ready for discharge plan total 14 days please call back if needed Problem List - Problems (1) Fever Code(s): R50.9 - FEVER, UNSPECIFIED (2) Diverticulitis Code(s): K57.92 - DVTRCLI OF INTEST, PART UNSP, W/O PERF OR ABSCESS W/O BLEED (3) Alcohol use disorder Code(s): [id number] - (4) COPD (chronic obstructive pulmonary disease) Code(s): J44.9 - CHRONIC OBSTRUCTIVE PULMONARY DISEASE, UNSPECIFIED Qualifiers: COPD type: unspecified COPD Qualified Code(s): J44.9 - Chronic obstructive pulmonary disease, unspecified
--- NOTE | 2018-11-06 16:02 | PN ---
Progress Note, Physician History of Present Illness: 53yo M alcoholic, s/p recent detox stay at [facility], still drinking ~3 beers daily (much less than previous per pt), with COPD, hyponatremia, EtOH liver disease, anemia, admitted through ER to medicine with 2 weeks of lower abdominal pain beginning on the left, then radiating across whole lower abdomen and some into back. He denies n/v, but did have chills and diarrhea with this, as well as decreased appetite/po intake. He denies urinary symptoms. He has never had a colonoscopy. He does have a chronic skin condition/psoriasis with rash/folliculitis of lower abdomen/groin/BLE. Workup was notable for wbc 14 which initially sirena to 18, normal LFTs, hyponatremia which has improved with saline (now stopped), and CT showing mid-sigmoid diverticulitis with phlegmon just above bladder but no drainable collection. He has been on Zosyn per ID. He is seen and examined in his room. He reports no sig pain, but occasional discomfort. He has not had increase in pain with full liquid intake. Has not had stool since asked to go in the hat for occult blood testing. No fevers, no nausea. - Current Medication List Current Medications: Active Medications Acetaminophen (Tylenol -) 650 mg PO Q6H PRN PRN Reason: Fever Or Pain Last Admin: 11/03/18 21:55 Dose: 650 mg Albuterol/Ipratropium (Duoneb -) 1 amp NEB RQID [facility] Last Admin: 11/06/18 11:38 Dose: 1 amp Enoxaparin Sodium (Lovenox -) 40 mg SQ DAILY [facility] Last Admin: 11/06/18 09:14 Dose: 40 mg Folic Acid (Folic Acid -) 1 mg PO DAILY [facility] Last Admin: 11/06/18 09:14 Dose: 1 mg Piperacillin Sod/Tazobactam (Sod 3.375 gm/ Dextrose) 50 mls @ 100 mls/hr IVPB Q8H-IV [facility]; Protocol Last Admin: 11/06/18 09:13 Dose: 100 mls/hr Thiamine HCl (Vitamin B1 -) 100 mg PO DAILY [facility] Last Admin: 11/06/18 09:14 Dose: 100 mg - Objective Vital Signs: Vital Signs Temperature 98.1 F 11/06/18 08:30 Pulse Rate 80 11/06/18 08:30 Respiratory Rate 18 11/06/18 08:30 Blood Pressure 142/89 11/06/18 08:30 O2 Sat by Pulse Oximetry (%) 96 11/05/18 21:00 Constitutional: Yes: No Distress, Calm, Thin Eyes: Yes: Conjunctiva Clear, EOM Intact HENT: Yes: Atraumatic, Normocephalic Gastrointestinal: Yes: Soft. No: Distention, Tenderness, Tenderness, Rebound ...Rectal Exam: Yes: Deferred Extremities: Yes: Erythema (BLE). No: Cool, Cyanosis Integumentary: Yes: Rash (folliculitis lower abdomen and groins, but erythema essentially gone), Other (left groin pustule which opened spontaneously, dressed ). No: Jaundice Wound/Incision: Yes: Dressing Dry and Intact, Dressing Removed (and replaced ( gauze and teg)), Unapproximated. No: Draining (scant serosang, some white cheesy content evacuated from residual lesion, site with minimal redness or tenderness) Neurological: Yes: Alert, Oriented, Tremors Labs: CBC, BMP 11/06/18 06:30 11/06/18 06:30 INR, PTT INR 1.24 (0.83-1.09) H 11/05/18 07:30 Problem List - Problems (1) Diverticulitis of large intestine with complication Assessment/Plan: phlegmon present but no drainable abscess tolerating fulls, no worsening of pain with liquids will advance diet and see how he tolerates IV antibiotics per ID - plan to complete 14-day course with Augmentin on discharge if tolerating diet tomorrow, may change to po abx for 24 hrs to make sure tolerated and no worsening GI symptoms before d/c L groin pustule drained spontaneously - consistent with ruptured cyst healing, clean keep dressed with gauze and teg or tape - change daily/prn GI/DVT prophylaxis COPD/EtOH management per primary team pt's abdominal skin condition makes him a poor candidate for colostomy, though erythematous rash has improved significantly while on abx surgery would likely involve needing colostomy, if diverticulitis does not improve with conservative measures, or he has gross perforation - would like to avoid if at all possible patient will need colonoscopy 6-8 weeks after resolution of this episode spoke briefly with his cyanide case hardener on phone - would be best to plan for Mon am d/c in order for him to obtain his antibiotics he uses [facility] in [place] for Rx Code(s): K57.32 - DVTRCLI OF LG INT W/O PERFORATION OR ABSCESS W/O BLEEDING (2) LLQ pain Code(s): R10.32 - LEFT LOWER QUADRANT PAIN (3) Alcoholic liver disease Code(s): K70.9 - ALCOHOLIC LIVER DISEASE, UNSPECIFIED (4) COPD (chronic obstructive pulmonary disease) Assessment/Plan: still with chronic cough Code(s): J44.9 - CHRONIC OBSTRUCTIVE PULMONARY DISEASE, UNSPECIFIED Qualifiers: COPD type: unspecified COPD Qualified Code(s): J44.9 - Chronic obstructive pulmonary disease, unspecified (5) Hyponatremia Assessment/Plan: improved, stable - IVF stopped by nephrology Code(s): E87.1 - HYPO-OSMOLALITY AND HYPONATREMIA (6) Folliculitis Code(s): L73.9 - FOLLICULAR DISORDER, UNSPECIFIED
--- NOTE | 2018-11-06 17:26 | PN ---
Progress Note, Physician History of Present Illness: Pt seen and examined at bedside. He is awake and alert. He is tolerating his current diet. - Current Medication List Current Medications: Active Medications Acetaminophen (Tylenol -) 650 mg PO Q6H PRN PRN Reason: Fever Or Pain Last Admin: 11/03/18 21:55 Dose: 650 mg Albuterol/Ipratropium (Duoneb -) 1 amp NEB RQID [facility] Last Admin: 11/06/18 16:05 Dose: 1 amp Enoxaparin Sodium (Lovenox -) 40 mg SQ DAILY [facility] Last Admin: 11/06/18 09:14 Dose: 40 mg Folic Acid (Folic Acid -) 1 mg PO DAILY [facility] Last Admin: 11/06/18 09:14 Dose: 1 mg Piperacillin Sod/Tazobactam (Sod 3.375 gm/ Dextrose) 50 mls @ 100 mls/hr IVPB Q8H-IV [facility]; Protocol Last Admin: 11/06/18 09:13 Dose: 100 mls/hr Thiamine HCl (Vitamin B1 -) 100 mg PO DAILY [facility] Last Admin: 11/06/18 09:14 Dose: 100 mg - Objective Vital Signs: Vital Signs Temperature 98.1 F 11/06/18 08:30 Pulse Rate 80 11/06/18 08:30 Respiratory Rate 18 11/06/18 08:30 Blood Pressure 142/89 11/06/18 08:30 O2 Sat by Pulse Oximetry (%) 96 11/05/18 21:00 Constitutional: Yes: Calm Eyes: Yes: Conjunctiva Clear HENT: Yes: Atraumatic Cardiovascular: Yes: S1, S2 Respiratory: Yes: CTA Bilaterally Gastrointestinal: Yes: Soft Genitourinary: Yes: WNL Musculoskeletal: Yes: WNL Neurological: Yes: Oriented Labs: CBC, BMP 11/06/18 06:30 11/06/18 06:30 INR, PTT INR 1.24 (0.83-1.09) H 11/05/18 07:30 Problem List - Problems (1) COPD (chronic obstructive pulmonary disease) Code(s): J44.9 - CHRONIC OBSTRUCTIVE PULMONARY DISEASE, UNSPECIFIED Qualifiers: COPD type: unspecified COPD Qualified Code(s): J44.9 - Chronic obstructive pulmonary disease, unspecified (2) Diverticulitis Code(s): K57.92 - DVTRCLI OF INTEST, PART UNSP, W/O PERF OR ABSCESS W/O BLEED (3) Hyponatremia Code(s): E87.1 - HYPO-OSMOLALITY AND HYPONATREMIA (4) Abdominal pain Code(s): R10.9 - UNSPECIFIED ABDOMINAL PAIN (5) Alcohol dependence Code(s): F10.20 - ALCOHOL DEPENDENCE, UNCOMPLICATED Assessment/Plan Current Medications Generic Name Dose Route Start Last Admin Trade Name Freq PRN Reason Stop Dose Admin Acetaminophen 650 mg 11/02/18 05:56 11/03/18 21:55 Tylenol - PO 650 mg Q6H PRN Administration Fever Or Pain Albuterol/Ipratropium 1 amp 11/02/18 08:00 11/06/18 16:05 Duoneb - NEB 1 amp RQID [facility] Administration Enoxaparin Sodium 40 mg 11/02/18 10:00 11/06/18 09:14 Lovenox - SQ 40 mg DAILY [facility] Administration Folic Acid 1 mg 11/02/18 10:00 11/06/18 09:14 Folic Acid - PO 1 mg DAILY [facility] Administration Piperacillin Sod/Tazobactam 50 mls @ 100 mls/hr 11/02/18 13:30 11/06/18 09:13 Sod 3.375 gm/ Dextrose IVPB 100 mls/hr Q8H-IV [facility] Administration Protocol Thiamine HCl 100 mg 11/02/18 10:00 11/06/18 09:14 Vitamin B1 - PO 100 mg DAILY [facility] Administration Impression 1. hyponatremia 2. diverticulitis 3. hx etoh abuse 4. anemia 5. copd 6. microscopic hematuria Plan - sodium remains stable off of fluids - encourage PO intake - monitor sodium levels - etoh abuse likely contributed to hyponatremia - will follow PRN Dr Batista
--- NOTE | 2018-11-06 21:05 | PN ---
GI Progress Note Subjective: GI NOte: Had black stool earlier but Hb stable. Tolerated solid food dinner. No pain at present - Objective Vital Signs: Vital Signs Temperature 98.1 F 11/06/18 08:30 Pulse Rate 80 11/06/18 08:30 Respiratory Rate 18 11/06/18 08:30 Blood Pressure 142/89 11/06/18 08:30 O2 Sat by Pulse Oximetry (%) 96 11/05/18 21:00 Laboratory Tests 11/02/18 11/03/18 11/04/18 07:36 06:30 06:00 Hgb 12.6 12.2 12.1 11/05/18 11/06/18 07:30 06:30 Hgb 11.9 12.6 Constitutional: No Distress ...Auscultate: Yes: Normoactive Bowel Sounds ...Palpate: Yes: Soft, Other (nontender) ...Rectal Exam: Yes: Guaiac Negative (dark brown and guaiac negative stool) Labs: CBC, BMP 11/06/18 06:30 11/06/18 06:30 INR, PTT INR 1.24 (0.83-1.09) H 11/05/18 07:30 Assessment/Plan Impression: Stool is guaiac negative Sigmoid diverticulitis with bladder impingement- improving Alcoholism and at risk for DTs Alcoholic liver disease with hepatomegaly Bilateral inguinal hernias Hyponatremia Scaly and pustular rash ? scabies, chronic folliculitis. ? fungal Plan: Continue current antibiotics Complete Librium detox Continue with trial of solids Problem List - Problems (1) Diverticulitis large intestine Code(s): K57.32 - DVTRCLI OF LG INT W/O PERFORATION OR ABSCESS W/O BLEEDING (2) Alcoholic liver disease Code(s): K70.9 - ALCOHOLIC LIVER DISEASE, UNSPECIFIED (3) Alcohol dependence Code(s): F10.20 - ALCOHOL DEPENDENCE, UNCOMPLICATED (4) Inguinal hernia recurrent bilateral Code(s): K40.21 - BILATERAL INGUINAL HERNIA, W/O OBST OR GANGRENE, RECURRENT (5) Folliculitis Code(s): L73.9 - FOLLICULAR DISORDER, UNSPECIFIED (6) COPD (chronic obstructive pulmonary disease) Code(s): J44.9 - CHRONIC OBSTRUCTIVE PULMONARY DISEASE, UNSPECIFIED Qualifiers: COPD type: unspecified COPD Qualified Code(s): J44.9 - Chronic obstructive pulmonary disease, unspecified (7) Hyponatremia Code(s): E87.1 - HYPO-OSMOLALITY AND HYPONATREMIA (8) Leukocytosis Code(s): D72.829 - ELEVATED WHITE BLOOD CELL COUNT, UNSPECIFIED Qualifiers: Leukocytosis type: other Qualified Code(s): D72.828 - Other elevated white blood cell count (9) Abdominal pain Code(s): R10.9 - UNSPECIFIED ABDOMINAL PAIN
[2018-11-07] MEDS ORDERED: PIPERACILLIN/TAZOBACTAM 3.375 GM VIAL IVPB ONE ×3 (00:11→17:20)
[2018-11-07] MEDS: PIPERACILLIN/TAZOB 3.375 GM 3.375 GM in DEXTROSE 5%-WATER - 50 ML IVPB SCH ×3 (01:34→18:37)
[2018-11-07 08:50] LABS: HEMATOCRIT 37.6 % (35.4-49); HEMOGLOBIN 12.8 GM/dL (11.7-16.9); MCH 31.8 pg (25.7-33.7); MCHC 34.1 g/dl (32.0-35.9); MEAN CELL VOLUME 93.2 fl (80-96); MEAN PLT VOLUME 6.7 fl (7.5-11.1); PLATELET COUNT 410 K/MM3 (134-434); RBC 4.04 M/mm3 (4.00-5.60); RDW 12.8 % (11.9-15.9)
--- NOTE | 2018-11-07 09:31 | PN ---
Progress Note, Physician Chief Complaint: C/O ABD PAIN TOLERATING MEALS - Current Medication List Current Medications: Active Medications Acetaminophen (Tylenol -) 650 mg PO Q6H PRN PRN Reason: Fever Or Pain Last Admin: 11/03/18 21:55 Dose: 650 mg Enoxaparin Sodium (Lovenox -) 40 mg SQ DAILY [facility] Last Admin: 11/06/18 09:14 Dose: 40 mg Folic Acid (Folic Acid -) 1 mg PO DAILY [facility] Last Admin: 11/06/18 09:14 Dose: 1 mg Piperacillin Sod/Tazobactam (Sod 3.375 gm/ Dextrose) 50 mls @ 100 mls/hr IVPB Q8H-IV [facility]; Protocol Last Admin: 11/07/18 01:34 Dose: 100 mls/hr Thiamine HCl (Vitamin B1 -) 100 mg PO DAILY [facility] Last Admin: 11/06/18 09:14 Dose: 100 mg - Objective Vital Signs: Vital Signs Temperature 97.8 F 11/07/18 06:00 Pulse Rate 94 H 11/07/18 06:00 Respiratory Rate 18 11/07/18 06:00 Blood Pressure 129/82 11/07/18 06:00 O2 Sat by Pulse Oximetry (%) 96 11/06/18 21:00 Constitutional: Yes: Mild Distress Cardiovascular: Yes: Regular Rate and Rhythm Gastrointestinal: Yes: Soft, Tenderness Musculoskeletal: Yes: Muscle Weakness Labs: CBC, BMP 11/07/18 07:00 INR, PTT INR 1.24 (0.83-1.09) H 11/05/18 07:30 Problem List - Problems (1) Alcoholic liver disease Code(s): K70.9 - ALCOHOLIC LIVER DISEASE, UNSPECIFIED (2) COPD (chronic obstructive pulmonary disease) Code(s): J44.9 - CHRONIC OBSTRUCTIVE PULMONARY DISEASE, UNSPECIFIED Qualifiers: COPD type: unspecified COPD Qualified Code(s): J44.9 - Chronic obstructive pulmonary disease, unspecified (3) Diverticulitis Code(s): K57.92 - DVTRCLI OF INTEST, PART UNSP, W/O PERF OR ABSCESS W/O BLEED Assessment/Plan SURGERY EVAL PAIN CONTROL IV ABX IVF
[2018-11-07 09:42] LABS: ALK PHOS 89 U/L (45-117); ANION GAP 8 MMOL/L (8-16); BILIRUBIN,TOTAL 0.4 mg/dL (0.2-1); BLOOD UREA NITROGEN 5 mg/dL (7-18); CALCIUM 8.5 mg/dL (8.5-10.1); CHLORIDE 100 mmol/L (98-107); CO2 28 mmol/L (21-32); CREATININE 0.9 mg/dL (0.55-1.3); GLUCOSE,RANDOM 82 mg/dL (74-106); POTASSIUM 3.9 mmol/L (3.5-5.1); SGOT/AST 13 U/L (15-37); SGPT/ALT 18 U/L (13-61); SODIUM 136 mmol/L (136-145); TOT PROT 6.7 g/dl (6.4-8.2)
[2018-11-07] MEDS: THIAMINE HCL 100 MG TABLET (FP) PO SCH (09:51)
[2018-11-07] MEDS: FOLIC ACID 1 MG TABLET (FP) PO SCH (09:52)
[2018-11-07] MEDS ORDERED: DEXTROSE 5%-WATER - 50 ML IVPB ONE ×2 (09:54→17:21)
[2018-11-07] MEDS: ENOXAPARIN NA (PORCINE) 40 MG/0.4 ML DISP.SYRIN SQ SCH (10:04)
--- NOTE | 2018-11-07 13:44 | PN ---
Progress Note, Physician History of Present Illness: 53yo M alcoholic smoker, s/p recent detox stay at [facility], [place], still drinking ~ 3 beers daily (much less than previous per pt), with COPD, hyponatremia, EtOH liver disease, anemia, admitted through ER to medicine with 2 weeks of lower abdominal pain beginning on the left, then radiating across whole lower abdomen and some into back. He denied n/v, but did have chills and diarrhea with this, as well as decreased appetite/po intake. He denies urinary symptoms. He has never had a colonoscopy. He does have a chronic skin condition/psoriasis with rash/folliculitis of lower abdomen/groin/BLE. Workup was notable for wbc 14 which initially sirena to 18 but then came down to normal, normal LFTs, hyponatremia which has improved with saline (now stopped), and CT showing mid- sigmoid diverticulitis with phlegmon just above bladder but no drainable collection. He has been on Zosyn per ID. He is seen and examined in bed. He reports minimal left lower quadrant pain, with no increase or change on regular diet. No fevers, no nausea. He is having some black stools, and said yesterday the nurse got a sample for testing. Occult blood was negative. He is concerned about having somewhere safer/more inside to go than back to his van on discharge, especially with consistent access to a bathroom. He is willing to consider going back to Dr. Robison ( known from previous) for GI/scope planning after discharge. - Current Medication List Current Medications: Active Medications Acetaminophen (Tylenol -) 650 mg PO Q6H PRN PRN Reason: Fever Or Pain Last Admin: 11/03/18 21:55 Dose: 650 mg Enoxaparin Sodium (Lovenox -) 40 mg SQ DAILY [facility] Last Admin: 11/07/18 10:04 Dose: 40 mg Folic Acid (Folic Acid -) 1 mg PO DAILY [facility] Last Admin: 11/07/18 09:52 Dose: 1 mg Piperacillin Sod/Tazobactam (Sod 3.375 gm/ Dextrose) 50 mls @ 100 mls/hr IVPB Q8H-IV [facility]; Protocol Last Admin: 11/07/18 10:03 Dose: 100 mls/hr Thiamine HCl (Vitamin B1 -) 100 mg PO DAILY [facility] Last Admin: 11/07/18 09:51 Dose: 100 mg - Objective Vital Signs: Vital Signs Temperature 97.5 F L 11/07/18 09:50 Pulse Rate 87 11/07/18 09:50 Respiratory Rate 18 11/07/18 09:50 Blood Pressure 136/89 11/07/18 09:50 O2 Sat by Pulse Oximetry (%) 96 11/06/18 21:00 Constitutional: Yes: No Distress, Calm, Thin Eyes: Yes: Conjunctiva Clear, EOM Intact HENT: Yes: Atraumatic, Normocephalic Gastrointestinal: Yes: Soft, Hernia (inguinals), Tenderness (minimal LLQ, more bladder pressure at suprapubic than tenderness). No: Distention ...Rectal Exam: Yes: Deferred Extremities: Yes: Other (erythema of BLE has essentially resolved while on antibiotics, still with flaky, dry skin rash). No: Cool, Cyanosis Integumentary: Yes: Rash (more chronic folliculitis of lower abdomen/groins/ legs - reportedly psoriasis as well). No: Erythema (pink/redness has resolved while on antibiotics), Jaundice Wound/Incision: Yes: Dressing Dry and Intact (L groin ruptured cyst, gauze and tegaderm). No: Dressing Removed (pt plans to shower later and will remove and have dressing replaced then) Neurological: Yes: Alert, Oriented, Tremors. No: Unsteady Gait Labs: CBC, BMP 11/07/18 07:00 11/07/18 07:00 Stool occult blood negative Problem List - Problems (1) Diverticulitis of large intestine with complication Assessment/Plan: with phlegmon but no drainable abscess tolerating diet, no worsening of pain with food IV Zosyn per ID - plan to complete 14-day course with Augmentin on discharge will change to po abx in am for at least 24 hrs to make sure tolerated and no worsening GI symptoms before d/c Friday morning dose will complete 7 days abx in-house - will need Rx for 7 days Augmentin 875mg bid on d/c L groin pustule had drained spontaneously - consistent with ruptured cyst dressing intact with no strikethrough keep dressed with gauze and teg or tape - change daily/prn may shower GI/DVT prophylaxis COPD/EtOH management per primary team pt's abdominal skin condition makes him a poor candidate for colostomy, though erythematous rash has improved significantly while on abx surgery would likely involve needing colostomy, if diverticulitis does not improve with conservative measures, or he has gross perforation - would like to avoid if at all possible patient will need colonoscopy 6-8 weeks after resolution of this episode encouraged to f/u with Dr. Robison or GI of choice in ~6 weeks to schedule plan for Fri d/c antibiotics to be Rx to [facility] in [place] he also requests refill of his ProAir inhaler on d/c, as he has missed his beginning of the month appt to get it from PMD SW/CM to address his concerns about safe discharge and possible long term or housing options? his MH worker should be available to contact on Friday Code(s): K57.32 - DVTRCLI OF LG INT W/O PERFORATION OR ABSCESS W/O BLEEDING (2) LLQ pain Assessment/Plan: minimal, improved Code(s): R10.32 - LEFT LOWER QUADRANT PAIN (3) Alcoholic liver disease Code(s): K70.9 - ALCOHOLIC LIVER DISEASE, UNSPECIFIED (4) COPD (chronic obstructive pulmonary disease) Assessment/Plan: still with chronic cough states he used Symbicort 2 puffs bid at home (but does sometimes use 4 puffs bid ) Code(s): J44.9 - CHRONIC OBSTRUCTIVE PULMONARY DISEASE, UNSPECIFIED Qualifiers: COPD type: unspecified COPD Qualified Code(s): J44.9 - Chronic obstructive pulmonary disease, unspecified (5) Hyponatremia Assessment/Plan: improved, stable - IVF off Code(s): E87.1 - HYPO-OSMOLALITY AND HYPONATREMIA (6) Folliculitis Code(s): L73.9 - FOLLICULAR DISORDER, UNSPECIFIED
[2018-11-08] MEDS ORDERED: PIPERACILLIN/TAZOBACTAM 3.375 GM VIAL IVPB ONE (01:34)
[2018-11-08] MEDS ORDERED: DEXTROSE 5%-WATER - 50 ML IVPB ONE (01:34)
[2018-11-08] MEDS: PIPERACILLIN/TAZOB 3.375 GM 3.375 GM in DEXTROSE 5%-WATER - 50 ML IVPB SCH (01:40)
--- NOTE | 2018-11-08 09:29 | PN ---
Progress Note, Physician Chief Complaint: AWAKE ALERT FEELING BETTER - Current Medication List Current Medications: Active Medications Acetaminophen (Tylenol -) 650 mg PO Q6H PRN PRN Reason: Fever Or Pain Last Admin: 11/03/18 21:55 Dose: 650 mg Amoxicillin/Clavulanate Potassium (Augmentin - 875mg Tablet) 1 tab PO BID@0800, 1730 [facility] Enoxaparin Sodium (Lovenox -) 40 mg SQ DAILY [facility] Last Admin: 11/07/18 10:04 Dose: 40 mg Folic Acid (Folic Acid -) 1 mg PO DAILY [facility] Last Admin: 11/07/18 09:52 Dose: 1 mg Thiamine HCl (Vitamin B1 -) 100 mg PO DAILY [facility] Last Admin: 11/07/18 09:51 Dose: 100 mg - Objective Vital Signs: Vital Signs Temperature 97.8 F 11/07/18 22:00 Pulse Rate 81 11/07/18 22:00 Respiratory Rate 18 11/07/18 22:00 Blood Pressure 123/70 11/07/18 22:00 O2 Sat by Pulse Oximetry (%) 96 11/07/18 09:00 Cardiovascular: Yes: Regular Rate and Rhythm Respiratory: Yes: WNL Gastrointestinal: Yes: Soft Genitourinary: Yes: WNL Musculoskeletal: Yes: Muscle Weakness Labs: CBC, BMP 11/07/18 07:00 11/07/18 07:00 INR, PTT INR 1.24 (0.83-1.09) H 11/05/18 07:30 Problem List - Problems (1) Alcoholic liver disease Code(s): K70.9 - ALCOHOLIC LIVER DISEASE, UNSPECIFIED (2) COPD (chronic obstructive pulmonary disease) Code(s): J44.9 - CHRONIC OBSTRUCTIVE PULMONARY DISEASE, UNSPECIFIED Qualifiers: COPD type: unspecified COPD Qualified Code(s): J44.9 - Chronic obstructive pulmonary disease, unspecified (3) Diverticulitis Code(s): K57.92 - DVTRCLI OF INTEST, PART UNSP, W/O PERF OR ABSCESS W/O BLEED Assessment/Plan CHANGED TO PO ABX DC PLANNING SERVICE DEPARTMENT MANAGER F/U PLACEMENT TO [facility]
[2018-11-08] MEDS: FOLIC ACID 1 MG TABLET (FP) PO SCH (09:47)
[2018-11-08] MEDS: AMOX TR/POT CLAV 875MG/125MG TABLETS (FP) PO SCH ×2 (09:47→18:32)
[2018-11-08] MEDS: ENOXAPARIN NA (PORCINE) 40 MG/0.4 ML DISP.SYRIN SQ SCH (09:47)
[2018-11-08] MEDS: THIAMINE HCL 100 MG TABLET (FP) PO SCH (09:47)
--- NOTE | 2018-11-08 12:23 | PN ---
Progress Note, Physician History of Present Illness: 53yo male alcoholic smoker, COPD, hyponatremia, EtOH, liver disease, anemia, admitted through ER to medicine with 2 weeks of lower abdominal pain beginning on the left, then radiating across whole lower abdomen and some into back. LLQ abscess - Current Medication List Current Medications: Active Medications Acetaminophen (Tylenol -) 650 mg PO Q6H PRN PRN Reason: Fever Or Pain Last Admin: 11/03/18 21:55 Dose: 650 mg Amoxicillin/Clavulanate Potassium (Augmentin - 875mg Tablet) 1 tab PO BID@0800, 1730 [facility] Last Admin: 11/08/18 09:47 Dose: 1 tab Enoxaparin Sodium (Lovenox -) 40 mg SQ DAILY [facility] Last Admin: 11/08/18 09:47 Dose: 40 mg Folic Acid (Folic Acid -) 1 mg PO DAILY [facility] Last Admin: 11/08/18 09:47 Dose: 1 mg Thiamine HCl (Vitamin B1 -) 100 mg PO DAILY [facility] Last Admin: 11/08/18 09:47 Dose: 100 mg - Objective Vital Signs: Vital Signs Temperature 98.3 F 11/08/18 09:53 Pulse Rate 78 11/08/18 09:53 Respiratory Rate 18 11/08/18 09:53 Blood Pressure 124/72 11/08/18 09:53 O2 Sat by Pulse Oximetry (%) 96 11/07/18 09:00 Vital Signs Period Temp Pulse Resp BP Sys/Ballard Pulse Ox Last 24 Hr 97.8 F-98.3 F 78-81 18-18 123-124/70-72 Constitutional: Yes: Well Nourished, No Distress, Poor Hygeine Eyes: Yes: Conjunctiva Clear, EOM Intact HENT: Yes: Atraumatic, Normocephalic Neck: Yes: Supple, Trachea Midline Cardiovascular: Yes: Regular Rate and Rhythm, S1, S2 Respiratory: Yes: Regular, CTA Bilaterally Gastrointestinal: Yes: Normal Bowel Sounds, Soft ...Rectal Exam: Yes: Deferred Genitourinary: No: CVA Tenderness - Left, CVA Tenderness - Right Breast(s): No: Discharge from Nipple, Nipple Inversion Musculoskeletal: No: Muscle Pain, Muscle Weakness Extremities: No: Cool, Cyanosis Edema: No Peripheral Pulses WNL: Yes Peripheral Pulses: Left Radial: 2+, Right Radial: 2+, Left Doralis Pedis: 2+, Right Dorsalis Pedis: 2+, Left Femoral: 2+, Right Femoral: 2+ Integumentary: Yes: Bruising, Rash (craters all over lower abdomen). No: Jaundice Wound/Incision: Yes: Clean/Dry, Draining, Unapproximated (LLQ pustual) Neurological: Yes: Oriented, Babinski positive Psychiatric: Yes: Alert, Oriented Labs: CBC, BMP 11/07/18 07:00 11/07/18 07:00 INR, PTT INR 1.24 (0.83-1.09) H 11/05/18 07:30 Microbiology 11/08/18 12:33 Wound-Other Gram Stain - Final 11/08/18 12:33 Wound-Other Wound Culture - Final NO GROWTH AFTER 48 HOURS INCUBATION Problem List - Problems (1) Folliculitis Assessment/Plan: 53 yo male with MMP seen for Diverticulitis with phlegmon (non opertaive management) and LLQ draininag abscess with phlegmon but no drainable abscess - improved on antibiotics tolerating diet, no worsening of pain with food IV Zosyn changed to Augmentin to complete 14 day course L groin pustule had drained spontaneously - consistent with ruptured cyst, now healing and lesion is dry dressing intact - pt will remove when he next showers and may leave off presuming no further drainage Code(s): L73.9 - FOLLICULAR DISORDER, UNSPECIFIED (2) Fever Code(s): R50.9 - FEVER, UNSPECIFIED Qualifiers: Encounter type: subsequent encounter (3) Alcoholic liver disease Code(s): K70.9 - ALCOHOLIC LIVER DISEASE, UNSPECIFIED (4) COPD (chronic obstructive pulmonary disease) Code(s): J44.9 - CHRONIC OBSTRUCTIVE PULMONARY DISEASE, UNSPECIFIED Qualifiers: COPD type: unspecified COPD Qualified Code(s): J44.9 - Chronic obstructive pulmonary disease, unspecified (5) Alcohol dependence Code(s): F10.20 - ALCOHOL DEPENDENCE, UNCOMPLICATED (6) Hepatomegaly Code(s): R16.0 - HEPATOMEGALY, NOT ELSEWHERE CLASSIFIED
[2018-11-09] MEDS: AMOX TR/POT CLAV 875MG/125MG TABLETS (FP) PO SCH ×2 (08:03→17:44)
[2018-11-09] MEDS ORDERED: PT OWN MED DRAWER 7, Y5N ONE (09:05)
[2018-11-09] MEDS: FOLIC ACID 1 MG TABLET (FP) PO SCH (09:33)
[2018-11-09] MEDS: ENOXAPARIN NA (PORCINE) 40 MG/0.4 ML DISP.SYRIN SQ SCH (09:33)
[2018-11-09] MEDS: THIAMINE HCL 100 MG TABLET (FP) PO SCH (09:33)
--- NOTE | 2018-11-09 15:32 | DS ---
Physical Examination Vital Signs: Vital Signs Temperature 98.7 F 11/09/18 14:35 Pulse Rate 89 11/09/18 14:35 Respiratory Rate 19 11/09/18 14:35 Blood Pressure 107/54 L 11/09/18 14:35 O2 Sat by Pulse Oximetry (%) 96 11/08/18 21:00 Findings/Remarks: Patient is a 53 y/o male with past medical history of ETOH abuse, COPD, anemia and fatty liver. Patient presented to ER with complaints of abdominal pain x 2 weeks. Pain started to L side and radiated across abdomen to the R side. The abdominal pain accompanied by poor appetite and several episodes non-bloody, diarrhea. On admission patient noted with leukocytosis wbc 14.7 and hyponatremia Na129. Abdomen and Pelvic CT Scan show acute sigmoid diverticulitis with possible phlegmon. Patient was followed by GI and surgery. Patient completed librium taper while in patient. Received course of IV ABT and was switched to PO. Patient will continue with PO ABT and will need to be followed closely by GI as an outpatient and have colonoscopy scheduled 4-6 weeks after discharge. Constitutional: Yes: No Distress, Calm Eyes: Yes: Conjunctiva Clear HENT: Yes: Atraumatic Cardiovascular: Yes: Regular Rate and Rhythm Respiratory: Yes: Regular, CTA Bilaterally Gastrointestinal: Yes: Normal Bowel Sounds, Soft, Other (minor LLQ tenderness) Musculoskeletal: Yes: WNL Extremities: Yes: WNL Edema: No Neurological: Yes: Alert, Oriented Psychiatric: Yes: Alert, Oriented Labs: CBC, BMP 11/07/18 07:00 11/07/18 07:00 Discharge Summary Reason For Visit: DIVERTICULITIS OF LARGE INTESTINE Current Active Problems Alcoholic liver disease (Acute) COPD (chronic obstructive pulmonary disease) (Acute) Diarrhea (Acute) Diverticulitis (Acute) Diverticulitis large intestine (Acute) Diverticulitis of large intestine with complication (Acute) Fever (Acute) Folliculitis (Acute) Hyponatremia (Acute) Inguinal hernia recurrent bilateral (Acute) LLQ pain (Acute) Leukocytosis (Acute) Low blood urea nitrogen (BUN) (Acute) Procedures: Principal: Abdomen and pelvic CT scan Hospital Course: see progress notes Laboratory Tests 11/02/18 11/02/18 11/02/18 01:44 01:44 07:36 WBC 14.7 H 18.4 H RBC 4.40 3.99 L Hgb 14.1 12.6 Hct 41.0 36.8 MCV 93.2 92.2 MCH 32.0 31.7 MCHC 34.4 34.4 RDW 12.8 12.7 Plt Count 347 327 MPV 6.7 L 7.3 L Absolute Neuts (auto) 10.4 H 15.7 H Neutrophils % 70.5 85.4 H D Lymphocytes % 15.9 D 4.6 L D Monocytes % 11.4 H 9.5 Eosinophils % 1.3 0.2 D Basophils % 0.9 0.3 Nucleated RBC % 0 0 ESR PT with INR INR Sodium 129 L Potassium 4.6 Chloride 91 L Carbon Dioxide 32 Anion Gap 6 L BUN 4 L Creatinine 0.6 Creat Clearance w eGFR > 60 Random Glucose 89 Serum Osmolality Calcium 8.6 Phosphorus Magnesium Iron TIBC Iron Saturation Ferritin Total Bilirubin 0.4 AST 18 ALT 23 Alkaline Phosphatase 117 C-Reactive Protein Total Protein 7.3 Albumin 3.5 TSH Urine Color Urine Appearance Urine pH Ur Specific [place] Urine Protein Urine Glucose (UA) Urine Ketones Urine Blood Urine Nitrite Urine Bilirubin Urine Urobilinogen Ur Leukocyte Esterase Urine WBC (Auto) Urine RBC (Auto) Urine Osmolality Ur Random Sodium Ur Random Potassium Ur Random Chloride Stool Occult Blood DANIS Screen Smooth Musc &GAS [employer]PRENTICE Intrp Tiss Transglutamin IgG Tiss Transglutamin IgA Hepatitis A Ab Total Hep Bs Antigen Hep Bs Antibody Hep B Core Total Ab Hep C Ab Diagnostic Blood Type Antibody Screen 11/02/18 11/02/18 11/03/18 07:36 07:36 06:30 WBC 14.8 H RBC 3.85 L Hgb 12.2 Hct 35.8 MCV 93.0 MCH 31.5 MCHC 33.9 RDW 12.6 Plt Count 316 MPV 7.4 L Absolute Neuts (auto) Neutrophils % Lymphocytes % Monocytes % Eosinophils % Basophils % Nucleated RBC % ESR PT with INR INR Sodium 132 L Potassium 4.0 Chloride 97 L Carbon Dioxide 26 Anion Gap 10 BUN 4 L Creatinine 0.5 L Creat Clearance w eGFR > 60 Random Glucose 98 Serum Osmolality 270 L Calcium 7.9 L Phosphorus Magnesium Iron TIBC Iron Saturation Ferritin Total Bilirubin 0.7 AST 11 L ALT 18 Alkaline Phosphatase 105 C-Reactive Protein Total Protein 6.3 L Albumin 3.1 L TSH Urine Color Urine Appearance Urine pH Ur Specific [place] Urine Protein Urine Glucose (UA) Urine Ketones Urine Blood Urine Nitrite Urine Bilirubin Urine Urobilinogen Ur Leukocyte Esterase Urine WBC (Auto) Urine RBC (Auto) Urine Osmolality Ur Random Sodium Ur Random Potassium Ur Random Chloride Stool Occult Blood DANIS Screen Smooth Musc &[employer] Intrp Tiss Transglutamin IgG Tiss Transglutamin IgA Hepatitis A Ab Total Hep Bs Antigen Hep Bs Antibody Hep B Core Total Ab Hep C Ab Diagnostic Blood Type Antibody Screen 11/03/18 11/03/18 11/03/18 06:30 06:30 06:30 WBC RBC Hgb Hct MCV MCH MCHC RDW Plt Count MPV Absolute Neuts (auto) Neutrophils % Lymphocytes % Monocytes % Eosinophils % Basophils % Nucleated RBC % ESR 19 PT with INR INR Sodium 132 L Potassium 3.8 Chloride 97 L Carbon Dioxide 26 Anion Gap 9 BUN 6 L Creatinine 0.6 Creat Clearance w eGFR > 60 Random Glucose 75 Serum Osmolality Calcium 7.9 L Phosphorus Magnesium Iron TIBC Iron Saturation Ferritin 162.8 Total Bilirubin 1.0 AST 8 L ALT 12 L Alkaline Phosphatase 85 C-Reactive Protein 14.2 H Total Protein 5.6 L Albumin 2.6 L TSH 3.01 Urine Color Urine Appearance Urine pH Ur Specific [place] Urine Protein Urine Glucose (UA) Urine Ketones Urine Blood Urine Nitrite Urine Bilirubin Urine Urobilinogen Ur Leukocyte Esterase Urine WBC (Auto) Urine RBC (Auto) Urine Osmolality Ur Random Sodium Ur Random Potassium Ur Random Chloride Stool Occult Blood DANIS Screen Smooth Musc &[employer] Intrp Tiss Transglutamin IgG Tiss Transglutamin IgA Hepatitis A Ab Total Hep Bs Antigen Hep Bs Antibody Hep B Core Total Ab Hep C Ab Diagnostic Blood Type Antibody Screen 11/03/18 11/03/18 11/03/18 06:30 11:40 11:40 WBC RBC Hgb Hct MCV MCH MCHC RDW Plt Count MPV Absolute Neuts (auto) Neutrophils % Lymphocytes % Monocytes % Eosinophils % Basophils % Nucleated RBC % ESR PT with INR INR Sodium Potassium Chloride Carbon Dioxide Anion Gap BUN Creatinine Creat Clearance w eGFR Random Glucose Serum Osmolality Calcium Phosphorus Magnesium Iron 22 L TIBC 203 L Iron Saturation 11 L Ferritin Total Bilirubin AST ALT Alkaline Phosphatase C-Reactive Protein Total Protein Albumin TSH Urine Color Urine Appearance Urine pH Ur Specific [place] Urine Protein Urine Glucose (UA) Urine Ketones Urine Blood Urine Nitrite Urine Bilirubin Urine Urobilinogen Ur Leukocyte Esterase Urine WBC (Auto) Urine RBC (Auto) Urine Osmolality 525 Ur Random Sodium 138 Ur Random Potassium 27.3 Ur Random Chloride 171 Stool Occult Blood DANIS Screen Negative Smooth Musc &[employer] Intrp 11 Tiss Transglutamin IgG < 2 Tiss Transglutamin IgA < 2 Hepatitis A Ab Total Negative Hep Bs Antigen Negative Hep Bs Antibody Non reactive Hep B Core Total Ab Negative Hep C Ab Diagnostic <0.1 Blood Type Antibody Screen 11/03/18 11/04/18 11/04/18 11:40 06:00 06:00 WBC 9.3 RBC 3.76 L Hgb 12.1 Hct 35.0 L MCV 93.1 MCH 32.1 MCHC 34.5 RDW 12.7 Plt Count 316 MPV 6.8 L Absolute Neuts (auto) Neutrophils % Lymphocytes % Monocytes % Eosinophils % Basophils % Nucleated RBC % ESR PT with INR INR Sodium 136 Potassium 3.6 Chloride 101 Carbon Dioxide 31 Anion Gap 4 L BUN 4 L Creatinine 0.6 Creat Clearance w eGFR > 60 Random Glucose 96 Serum Osmolality Calcium 7.9 L Phosphorus 3.6 Magnesium 2.2 Iron TIBC Iron Saturation Ferritin Total Bilirubin 0.6 AST 8 L ALT 12 L Alkaline Phosphatase 77 C-Reactive Protein Total Protein 5.6 L Albumin 2.5 L TSH Urine Color Yellow Urine Appearance Clear Urine pH 5.0 Ur Specific [place] 1.014 Urine Protein Negative Urine Glucose (UA) Negative Urine Ketones 1+ H Urine Blood 1+ H Urine Nitrite Negative Urine Bilirubin Negative Urine Urobilinogen Negative Ur Leukocyte Esterase Negative Urine WBC (Auto) <1 Urine RBC (Auto) 2 Urine Osmolality Ur Random Sodium Ur Random Potassium Ur Random Chloride Stool Occult Blood DANIS Screen Smooth Musc [employer] Intrp Tiss Transglutamin IgG Tiss Transglutamin IgA Hepatitis A Ab Total Hep Bs Antigen Hep Bs Antibody Hep B Core Total Ab Hep C Ab Diagnostic Blood Type Antibody Screen 11/04/18 11/05/18 11/05/18 06:00 07:30 07:30 WBC 6.5 RBC 3.71 L Hgb 11.9 Hct 34.5 L MCV 92.9 MCH 32.0 MCHC 34.5 RDW 12.5 Plt Count 350 MPV 6.6 L Absolute Neuts (auto) Neutrophils % Lymphocytes % Monocytes % Eosinophils % Basophils % Nucleated RBC % ESR PT with INR INR Sodium 137 Potassium 3.5 Chloride 100 Carbon Dioxide 30 Anion Gap 7 L BUN 2 L* Creatinine 0.7 Creat Clearance w eGFR > 60 Random Glucose 94 Serum Osmolality Calcium 8.3 L Phosphorus Magnesium Iron TIBC Iron Saturation Ferritin Total Bilirubin 0.3 AST 6 L ALT 15 Alkaline Phosphatase 73 C-Reactive Protein 10.0 H Total Protein 5.7 L Albumin 2.7 L TSH Urine Color Urine Appearance Urine pH Ur Specific [place] Urine Protein Urine Glucose (UA) Urine Ketones Urine Blood Urine Nitrite Urine Bilirubin Urine Urobilinogen Ur Leukocyte Esterase Urine WBC (Auto) Urine RBC (Auto) Urine Osmolality Ur Random Sodium Ur Random Potassium Ur Random Chloride Stool Occult Blood DANIS Screen Smooth Musc [employer] Intrp Tiss Transglutamin IgG Tiss Transglutamin IgA Hepatitis A Ab Total Hep Bs Antigen Hep Bs Antibody Hep B Core Total Ab Hep C Ab Diagnostic Blood Type Antibody Screen 11/05/18 11/05/18 11/06/18 07:30 07:30 06:30 WBC 6.3 RBC 3.96 L Hgb 12.6 Hct 37.0 MCV 93.5 MCH 31.8 MCHC 34.0 RDW 12.7 Plt Count 366 MPV 6.8 L Absolute Neuts (auto) Neutrophils % Lymphocytes % Monocytes % Eosinophils % Basophils % Nucleated RBC % ESR PT with INR 14.70 H INR 1.24 H Sodium Potassium Chloride Carbon Dioxide Anion Gap BUN Creatinine Creat Clearance w eGFR Random Glucose Serum Osmolality Calcium Phosphorus Magnesium Iron TIBC Iron Saturation Ferritin Total Bilirubin AST ALT Alkaline Phosphatase C-Reactive Protein Total Protein Albumin TSH Urine Color Urine Appearance Urine pH Ur Specific [place] Urine Protein Urine Glucose (UA) Urine Ketones Urine Blood Urine Nitrite Urine Bilirubin Urine Urobilinogen Ur Leukocyte Esterase Urine WBC (Auto) Urine RBC (Auto) Urine Osmolality Ur Random Sodium Ur Random Potassium Ur Random Chloride Stool Occult Blood DANIS Screen Smooth Musc [employer] Intrp Tiss Transglutamin IgG Tiss Transglutamin IgA Hepatitis A Ab Total Hep Bs Antigen Hep Bs Antibody Hep B Core Total Ab Hep C Ab Diagnostic Blood Type A POSITIVE Antibody Screen Negative 11/06/18 11/06/18 11/07/18 06:30 19:00 07:00 WBC 8.0 RBC 4.04 Hgb 12.8 Hct 37.6 MCV 93.2 MCH 31.8 MCHC 34.1 RDW 12.8 Plt Count 410 MPV 6.7 L Absolute Neuts (auto) Neutrophils % Lymphocytes % Monocytes % Eosinophils % Basophils % Nucleated RBC % ESR PT with INR INR Sodium 137 Potassium 3.5 Chloride 101 Carbon Dioxide 27 Anion Gap 9 BUN 2 L* Creatinine 0.7 Creat Clearance w eGFR > 60 Random Glucose 77 Serum Osmolality Calcium 8.2 L Phosphorus Magnesium Iron TIBC Iron Saturation Ferritin Total Bilirubin 0.4 AST 12 L ALT 21 Alkaline Phosphatase 77 C-Reactive Protein Total Protein 6.3 L Albumin 2.7 L TSH Urine Color Urine Appearance Urine pH Ur Specific [place] Urine Protein Urine Glucose (UA) Urine Ketones Urine Blood Urine Nitrite Urine Bilirubin Urine Urobilinogen Ur Leukocyte Esterase Urine WBC (Auto) Urine RBC (Auto) Urine Osmolality Ur Random Sodium Ur Random Potassium Ur Random Chloride Stool Occult Blood Negative DANIS Screen Smooth Musc [employer] Intrp Tiss Transglutamin IgG Tiss Transglutamin IgA Hepatitis A Ab Total Hep Bs Antigen Hep Bs Antibody Hep B Core Total Ab Hep C Ab Diagnostic Blood Type Antibody Screen 11/07/18 11/07/18 07:00 07:00 WBC RBC Hgb Hct MCV MCH MCHC RDW Plt Count MPV Absolute Neuts (auto) Neutrophils % Lymphocytes % Monocytes % Eosinophils % Basophils % Nucleated RBC % ESR PT with INR INR Sodium 136 Potassium 3.9 Chloride 100 Carbon Dioxide 28 Anion Gap 8 BUN 5 L Creatinine 0.9 Creat Clearance w eGFR > 60 Random Glucose 82 Serum Osmolality Calcium 8.5 Phosphorus Magnesium Iron TIBC Iron Saturation Ferritin Total Bilirubin 0.4 AST 13 L ALT 18 Alkaline Phosphatase 89 C-Reactive Protein 1.9 H Total Protein 6.7 Albumin 3.0 L TSH Urine Color Urine Appearance Urine pH Ur Specific [place] Urine Protein Urine Glucose (UA) Urine Ketones Urine Blood Urine Nitrite Urine Bilirubin Urine Urobilinogen Ur Leukocyte Esterase Urine WBC (Auto) Urine RBC (Auto) Urine Osmolality Ur Random Sodium Ur Random Potassium Ur Random Chloride Stool Occult Blood DANIS Screen Smooth Musc [employer] Intrp Tiss Transglutamin IgG Tiss Transglutamin IgA Hepatitis A Ab Total Hep Bs Antigen Hep Bs Antibody Hep B Core Total Ab Hep C Ab Diagnostic Blood Type Antibody Screen Active Medications Generic Name Dose Route Start Last Admin Trade Name Freq PRN Reason Stop Dose Admin Acetaminophen 650 mg 11/02/18 05:56 11/03/18 21:55 Tylenol - PO 650 mg Q6H PRN Administration Fever Or Pain Amoxicillin/Clavulanate Potassium 1 tab 11/08/18 08:00 11/09/18 08:03 Augmentin - 875mg Tablet PO 1 tab BID@0800,1730 EMMA Administration Enoxaparin Sodium 40 mg 11/02/18 10:00 11/09/18 09:33 Lovenox - SQ 40 mg DAILY EMMA Administration Folic Acid 1 mg 11/02/18 10:00 11/09/18 09:33 Folic Acid - PO 1 mg DAILY EMMA Administration Thiamine HCl 100 mg 11/02/18 10:00 11/09/18 09:33 Vitamin B1 - PO 100 mg DAILY EMMA Administration Microbiology 11/08/18 12:33 Wound-Other Wound Culture - Preliminary NO GROWTH OBTAINED AFTER 24 HOURS INCUBATION, REINCUBATED. Condition: Stable - Instructions Diet, Activity, Other Instructions: [facility] Follow up with Dermatology Procedural Physician Dr. Robison, needs to have colonoscopy scheduled within 4-6 weeks of discharge continue with antibiotic therapy as prescribed return to ER if develop severe abdominal pain, rectal bleeding, fever Referrals: Carlos Robison MD [Staff Physician] - Disposition: HOME - Home Medications Comprehensive Discharge Medication List: Ambulatory Orders Folic Acid 1 mg PO DAILY 11/02/18 Thiamine HCl [B-1] 100 mg PO DAILY 11/02/18
[2018-11-10] MEDS: AMOX TR/POT CLAV 875MG/125MG TABLETS (FP) PO SCH ×2 (08:02→17:31)
[2018-11-10] MEDS ORDERED: PT OWN MED DRAWER 7, Y5N ONE (09:00)
[2018-11-10] MEDS: FOLIC ACID 1 MG TABLET (FP) PO SCH (09:06)
[2018-11-10] MEDS: ENOXAPARIN NA (PORCINE) 40 MG/0.4 ML DISP.SYRIN SQ SCH (09:06)
[2018-11-10] MEDS: THIAMINE HCL 100 MG TABLET (FP) PO SCH (09:06)
--- NOTE | 2018-11-10 13:16 | PN ---
Progress Note, Physician History of Present Illness: 53yo M alcoholic smoker, s/p recent detox stay at [facility], still drinking ~ 3 beers daily (much less than previous per pt), with COPD, hyponatremia, EtOH liver disease, anemia, admitted through ER to medicine with 2 weeks of lower abdominal pain beginning on the left, then radiating across whole lower abdomen and some into back. He denied n/v, but did have chills and diarrhea with this, as well as decreased appetite/po intake. He denies urinary symptoms. He has never had a colonoscopy. He does have a chronic skin condition/psoriasis with rash/folliculitis of lower abdomen/groin/BLE. Workup was notable for wbc 14 which initially sirena to 18 but then came down to normal, normal LFTs, hyponatremia which has improved with saline (now stopped), and CT showing mid- sigmoid diverticulitis with phlegmon just above bladder but no drainable collection. He has been on Zosyn per ID, switched Friday to PO Augmentin with continued tolerance of diet and no increase in pain. He is seen and examined eating lunch. He reports minimal residual pain, with no increase or change on regular diet. No fevers, no nausea. He was discharged yesterday, but his MH worker Luc has been unable to come pick him up yet. HALEY/ GINA is working on the arrangements for him to get out safely. He is frustrated about the situation, but doing ok overall. Feeling much better than he was on arrival. The left groin pustule is healing up. - Current Medication List Current Medications: Active Medications Acetaminophen (Tylenol -) 650 mg PO Q6H PRN PRN Reason: Fever Or Pain Last Admin: 11/03/18 21:55 Dose: 650 mg Amoxicillin/Clavulanate Potassium (Augmentin - 875mg Tablet) 1 tab PO BID@0800, 1730 [facility] Last Admin: 11/10/18 08:02 Dose: 1 tab Enoxaparin Sodium (Lovenox -) 40 mg SQ DAILY [facility] Last Admin: 11/10/18 09:06 Dose: 40 mg Folic Acid (Folic Acid -) 1 mg PO DAILY [facility] Last Admin: 11/10/18 09:06 Dose: 1 mg Thiamine HCl (Vitamin B1 -) 100 mg PO DAILY [facility] Last Admin: 11/10/18 09:06 Dose: 100 mg - Objective Vital Signs: Vital Signs Temperature 98.3 F 11/10/18 08:00 Pulse Rate 87 11/10/18 08:00 Respiratory Rate 20 11/10/18 08:00 Blood Pressure 123/74 11/10/18 08:00 O2 Sat by Pulse Oximetry (%) 97 11/09/18 21:00 Constitutional: Yes: No Distress, Calm, Thin Eyes: Yes: Conjunctiva Clear, EOM Intact HENT: Yes: Atraumatic, Normocephalic Gastrointestinal: Yes: Soft, Hernia (inguinals). No: Distention, Tenderness ...Rectal Exam: Yes: Deferred Extremities: No: Cool, Cyanosis Integumentary: Yes: Rash (folliculitis on lower abdomen/groins/legs, stable). No: Erythema (erythema had resolved while on antibiotics), Jaundice Wound/Incision: Yes: Dressing Dry and Intact, Other (lesion visualized under dressing - dry, clean, healing, no open area or active drainage). No: Dressing Removed Neurological: Yes: Alert, Oriented, Tremors. No: Unsteady Gait Labs: no new labs Problem List - Problems (1) Diverticulitis of large intestine with complication Assessment/Plan: with phlegmon but no drainable abscess - improved on antibiotics tolerating diet, no worsening of pain with food IV Zosyn changed to Augmentin to complete 14 day course L groin pustule had drained spontaneously - consistent with ruptured cyst, now healing and lesion is dry dressing intact - pt will remove when he next showers and may leave off presuming no further drainage GI/DVT prophylaxis COPD/EtOH management per primary team no acute surgical indications improved clinically on antibiotics patient will need colonoscopy 6-8 weeks after resolution of this episode encouraged to f/u with Dr. Robison or GI of choice in ~6 weeks to schedule no need for surgical follow up this time antibiotics were Rx to [facility] in [place] to f/u with PMD at [facility], per pt HALEY/GINA to address discharge issues, so he can leave when MH worker available with transportation discussed with Elham from [facility] Code(s): K57.32 - DVTRCLI OF LG INT W/O PERFORATION OR ABSCESS W/O BLEEDING (2) LLQ pain Assessment/Plan: resolved Code(s): R10.32 - LEFT LOWER QUADRANT PAIN (3) Alcoholic liver disease Code(s): K70.9 - ALCOHOLIC LIVER DISEASE, UNSPECIFIED (4) COPD (chronic obstructive pulmonary disease) Assessment/Plan: still with chronic cough instructed on proper use of inhalers - Symbicort only 2 puffs bid Albuterol as needed - 1-2 puffs every 4-6 hrs as needed he has one of each Code(s): J44.9 - CHRONIC OBSTRUCTIVE PULMONARY DISEASE, UNSPECIFIED Qualifiers: COPD type: unspecified COPD Qualified Code(s): J44.9 - Chronic obstructive pulmonary disease, unspecified (5) Hyponatremia Assessment/Plan: improved, stable Code(s): E87.1 - HYPO-OSMOLALITY AND HYPONATREMIA (6) Folliculitis Code(s): L73.9 - FOLLICULAR DISORDER, UNSPECIFIED
--- NOTE | 2018-11-10 15:49 | PN ---
Progress Note, Physician Chief Complaint: Diverticulitis COPD Alcoholic liver disease History of Present Illness: NAD awaiting discharge - Current Medication List Current Medications: Active Medications Acetaminophen (Tylenol -) 650 mg PO Q6H PRN PRN Reason: Fever Or Pain Last Admin: 11/03/18 21:55 Dose: 650 mg Amoxicillin/Clavulanate Potassium (Augmentin - 875mg Tablet) 1 tab PO BID@0800, 1730 [facility] Last Admin: 11/10/18 08:02 Dose: 1 tab Enoxaparin Sodium (Lovenox -) 40 mg SQ DAILY [facility] Last Admin: 11/10/18 09:06 Dose: 40 mg Folic Acid (Folic Acid -) 1 mg PO DAILY [facility] Last Admin: 11/10/18 09:06 Dose: 1 mg Thiamine HCl (Vitamin B1 -) 100 mg PO DAILY [facility] Last Admin: 11/10/18 09:06 Dose: 100 mg - Objective Vital Signs: Vital Signs Temperature 98.1 F 11/10/18 15:00 Pulse Rate 88 11/10/18 15:00 Respiratory Rate 11/10/18 15:00 Blood Pressure 107/67 11/10/18 15:00 O2 Sat by Pulse Oximetry (%) 97 11/09/18 21:00 Constitutional: Yes: Well Nourished, No Distress Cardiovascular: Yes: Regular Rate and Rhythm Respiratory: Yes: Regular Gastrointestinal: Yes: WNL Genitourinary: Yes: WNL Musculoskeletal: Yes: WNL Extremities: Yes: WNL Edema: No Peripheral Pulses WNL: Yes Neurological: Yes: Alert, Oriented Psychiatric: Yes: Alert, Oriented Labs: CBC, BMP 11/07/18 07:00 11/07/18 07:00 INR, PTT INR 1.24 (0.83-1.09) H 11/05/18 07:30 Problem List - Problems (1) Alcoholic liver disease Assessment/Plan: -Continues to drink -Encouraged abstinence from alcohol Code(s): K70.9 - ALCOHOLIC LIVER DISEASE, UNSPECIFIED (2) COPD (chronic obstructive pulmonary disease) Code(s): J44.9 - CHRONIC OBSTRUCTIVE PULMONARY DISEASE, UNSPECIFIED Qualifiers: COPD type: unspecified COPD Qualified Code(s): J44.9 - Chronic obstructive pulmonary disease, unspecified (3) Diverticulitis Assessment/Plan: -ABX changed to PO -Seen by Surgery+ GI -afebrile Code(s): K57.92 - DVTRCLI OF INTEST, PART UNSP, W/O PERF OR ABSCESS W/O BLEED (4) LLQ pain Assessment/Plan: -resolved Code(s): R10.32 - LEFT LOWER QUADRANT PAIN Assessment/Plan see problem list
[2018-11-11] MEDS: ENOXAPARIN NA (PORCINE) 40 MG/0.4 ML DISP.SYRIN SQ SCH (09:34)
[2018-11-11] MEDS: THIAMINE HCL 100 MG TABLET (FP) PO SCH (09:34)
[2018-11-11] MEDS: AMOX TR/POT CLAV 875MG/125MG TABLETS (FP) PO SCH (09:34)
[2018-11-11] MEDS: FOLIC ACID 1 MG TABLET (FP) PO SCH (09:34)
--- NOTE | 2018-11-11 10:30 | PN ---
Progress Note, Physician Chief Complaint: Diverticulitis COPD Alcoholic liver disease History of Present Illness: NAD awaiting discharge, DSS placement pending - Current Medication List Current Medications: Active Medications Acetaminophen (Tylenol -) 650 mg PO Q6H PRN PRN Reason: Fever Or Pain Last Admin: 11/03/18 21:55 Dose: 650 mg Amoxicillin/Clavulanate Potassium (Augmentin - 875mg Tablet) 1 tab PO BID@0800, 1730 [facility] Last Admin: 11/11/18 09:34 Dose: 1 tab Enoxaparin Sodium (Lovenox -) 40 mg SQ DAILY [facility] Last Admin: 11/11/18 09:34 Dose: 40 mg Folic Acid (Folic Acid -) 1 mg PO DAILY [facility] Last Admin: 11/11/18 09:34 Dose: 1 mg Thiamine HCl (Vitamin B1 -) 100 mg PO DAILY [facility] Last Admin: 11/11/18 09:34 Dose: 100 mg - Objective Vital Signs: Vital Signs Temperature 98.6 F 11/11/18 07:00 Pulse Rate 80 11/11/18 07:00 Respiratory Rate 20 11/11/18 07:00 Blood Pressure 93/62 11/11/18 07:00 O2 Sat by Pulse Oximetry (%) 97 11/10/18 21:00 Constitutional: Yes: Well Nourished, No Distress, Calm Cardiovascular: Yes: Regular Rate and Rhythm Respiratory: Yes: Regular Gastrointestinal: Yes: WNL Genitourinary: Yes: WNL Edema: No Peripheral Pulses WNL: Yes Neurological: Yes: Alert, Oriented Psychiatric: Yes: Alert, Oriented Labs: CBC, BMP 11/07/18 07:00 11/07/18 07:00 INR, PTT INR 1.24 (0.83-1.09) H 11/05/18 07:30 Problem List - Problems (1) Alcoholic liver disease Assessment/Plan: -Continues to drink -Encouraged abstinence from alcohol Code(s): K70.9 - ALCOHOLIC LIVER DISEASE, UNSPECIFIED (2) COPD (chronic obstructive pulmonary disease) Code(s): J44.9 - CHRONIC OBSTRUCTIVE PULMONARY DISEASE, UNSPECIFIED Qualifiers: COPD type: unspecified COPD Qualified Code(s): J44.9 - Chronic obstructive pulmonary disease, unspecified (3) Diverticulitis Assessment/Plan: -ABX changed to PO -Seen by Surgery+ GI -afebrile Code(s): K57.92 - DVTRCLI OF INTEST, PART UNSP, W/O PERF OR ABSCESS W/O BLEED (4) LLQ pain Assessment/Plan: -resolved Code(s): R10.32 - LEFT LOWER QUADRANT PAIN Assessment/Plan see problem list
[2018-11-11 11:02] VITALS: BP 100/60; PULSE 76; TEMP 98.1
== END 2018-11-11 11:23 | disposition home or self-care (01) | DRG 244 ==
LOC: JER 00:18 → JERBED 04:45 → J8W 08:57
PROVIDERS: ADMIT Internal Medicine; ATTEND Family Medicine
DX: K57.92 Diverticulitis of intestine, part unspecified, without perforation or abscess without bleeding (principal); J44.9 Chronic obstructive pulmonary disease, unspecified; R10.32 Left lower quadrant pain; F17.210 Nicotine dependence, cigarettes, uncomplicated; F10.20 Alcohol dependence, uncomplicated; R16.0 Hepatomegaly, not elsewhere classified; K40.20 Bilateral inguinal hernia, without obstruction or gangrene, not specified as recurrent; D72.829 Elevated white blood cell count, unspecified; R50.9 Fever, unspecified; K70.9 Alcoholic liver disease, unspecified; K76.0 Fatty (change of) liver, not elsewhere classified; E87.1 Hypo-osmolality and hyponatremia; L73.9 Follicular disorder, unspecified; D64.9 Anemia, unspecified; R31.29 Other microscopic hematuria
CPT/HCPCS: 36415; 71046-TC-FY; 74176-TC; 80048; 80053; 81003; 81015; 82272; 82436; 82728; 83516; 83540; 83550; 83735; 83930; 83935; 84100; 84133; 84300; 84443; 85025; 85027; 85610; 85651; 86038; 86140; 86704; 86706; 86708; 86803; 86850; 86900; 86901; 87070; 87205; 87340; 93005; 93010; 94640; 99283-25; J7030

== ENCOUNTER 2018-11-16 20:53 | Emergency (ER) | payer OTHER ==
[2018-11-16 21:06] VITALS: BP 147/94; PULSE 118; TEMP 98.8; BMI 20.7
--- NOTE | 2018-11-16 21:43 | PDOC ---
History of Present Illness - General Chief Complaint: Shortness of Breath Stated Complaint: SHORTNESS OF BREATH History Source: Patient - History of Present Illness Initial Comments: 11/16/18 21:46 53 yo M h/o ETOH abuse, COPD, anemia, fatty liver and diverticulitis p/w shortness of breath which happened yesterday. Patient was admitted for diverticulitis on 11/02 and discharged on PO abx on 11/09. Patient stated that the reason he visited the ED today is because doctors told him on discharge that if he feels short of breath he should come in the ED. He was resting when it happened yesterday. Used proair with no relief, not associated with exertion or chest pain. 11/16/18 23:17 order CBC w/ diff, CMP, BNP, Trop and duoneb and librium x 1 11/17/18 01:16 CTA is negative for PE, will discharge the patient home Past History - Past Medical History Allergies/Adverse Reactions: Allergies Allergy/AdvReac Type Severity Reaction Status Date / Time aspirin Allergy Unknown Verified 11/16/18 21:06 phenobarbital Allergy Unknown Verified 11/16/18 21:06 Home Medications: Ambulatory Orders Folic Acid 1 mg PO DAILY 11/02/18 Thiamine HCl [B-1] 100 mg PO DAILY 11/02/18 Amox-Tr/K Cl [Augmentin 875-125mg Tablet -] 1 tab PO BID@0800,1730 #12 tablet Folic Acid - 1 mg PO DAILY #30 tablet 11/09/18 Thiamine HCl [Vitamin B1 -] 100 mg PO DAILY #30 tablet 11/09/18 Anemia: Yes COPD: Yes GI Disorders: Yes (colitis, enlarged liver) - Surgical History Abdominal Surgery: Yes (hernia bilat) - Immunization History TDAP Vaccination: Yes Immunization Up to Date: Yes - Suicide/Smoking/Psychosocial Hx Smoking History: Current some day smoker Have you smoked in the past 12 months: Yes Number of Cigarettes Smoked Daily: 6 Information on smoking cessation initiated: No 'Breaking Loose' booklet given: 11/02/18 Hx Alcohol Use: Yes Drug/Substance Use Hx: No Substance Use Type: Alcohol Review of Systems - Review of Systems Able to Perform ROS?: Yes Constitutional: No: Chills, Fever Respiratory: Yes: Shortness of Breath, Wheezing. No: Cough, SOB with Exertion Cardiac (ROS): No: Chest Pain ABD/GI: Yes: Nausea, Vomiting *Physical Exam - Vital Signs Last Vital Signs Temp Pulse Resp BP Pulse Ox 98.8 F 118 H 22 H 147/94 100 11/16/18 20:53 11/16/18 20:53 11/16/18 20:53 11/16/18 20:53 11/16/18 20:53 - Physical Exam General Appearance: Yes: Alcohol on Breath, Intoxicated HEENT: negative: Scleral Icterus (R), Scleral Icterus (L) Respiratory/Chest: positive: Wheezing Cardiovascular: positive: Regular Rhythm, S1, S2, Tachycardia. negative: Murmur Gastrointestinal/Abdominal: positive: Normal Bowel Sounds. negative: Distended , Guarding, Rebound, Tenderness Extremity: negative: Swelling Neurologic: positive: Other (tremor on extended hands) Moderate Sedation - Procedure Monitoring Vital Signs: Procedure Monitoring Vital Signs Temperature 98.8 F 11/16/18 20:53 Pulse Rate 118 H 11/16/18 20:53 Respiratory Rate 22 H 11/16/18 20:53 Blood Pressure 147/94 11/16/18 20:53 O2 Sat by Pulse Oximetry (%) 100 11/16/18 20:53 ED Treatment Course - LABORATORY CBC & Chemistry Diagram: 11/16/18 10:28 11/16/18 10:28 *DC/Admit/Observation/Transfer Diagnosis at time of Disposition: Alcohol intoxication Qualifiers: Complication of substance-induced condition: uncomplicated Qualified Code(s): F10.920 - Alcohol use, unspecified with intoxication, uncomplicated - Discharge Dispostion Disposition: HOME Condition at time of disposition: Stable - Referrals - Patient Instructions Additional Instructions: You were seen in the ER for shortness of breath. We did the workup including CT angiogram and found no life threatening condition such as blood clot. You are stable to be discharged home. Please continue to take your home medications especially the antibiotics. - Post Discharge Activity
--- NOTE | 2018-11-16 22:27 | PDOC ---
Attending Attestation - HPI HPI: 11/16/18 22:35 The patient is a 53 year old male, with a significant PMH of ETOH abuse, COPD, anemia, fatty liver and diverticulitis, who presents to the emergency department today for one episodes of SOB which occurred yesterday. Patient used proair with no relief. Patient was recently admitted for diverticulitis and was released with a treatment of antibiotics and was advised to come to the ED if they experience SOB. Patient is currently asymptomatic. The patient denies chest pain, headache and dizziness. Denies fever, chills, nausea, vomit, diarrhea and constipation. Denies dysuria, frequency, urgency and hematuria. Allergies: aspirin, phenobarbital Social history: Alcoholic. - Physicial Exam PE: 11/16/18 22:35 Agree with Resident's exam. <Rashmi Winston - Last Filed: 11/16/18 22:37> - Resident Resident Name: Blane Holland - ED Attending Attestation I have performed the following: I have examined & evaluated the patient, The case was reviewed & discussed with the resident, I agree w/resident's findings & plan - Medical Decision Making 11/16/18 22:54 53-year-old male recently discharged from the hospital with diverticulitis, history of alcohol use complaining of an episode of shortness of breath, now resolved Plan for EKG chest x-ray and labs including a d-dimer troponin and BNP Terrie's Plan for likely discharge pending reevaluation and results <Berkley Kim - Last Filed: 11/16/18 22:56> Attestations - Attestations 11/16/18 22:36 Documentation prepared by Rashmi Winston, acting as chief medical technologist for [employer]kley [employer] DO. <Rashmi Winston - Last Filed: 11/16/18 22:37>
[2018-11-16] MEDS ORDERED: chlordiazePOXIDE HCL 25 MG CAPSULE PO ONE (22:41)
[2018-11-16] MEDS ORDERED: ALBUTEROL SO4 2.5/IPRATROPIUM 0.5 INH SOL 3 ML VIAL.NEB. NEB ONE ×2 (22:48→22:49)
[2018-11-16] MEDS ORDERED: chlordiazePOXIDE HCL 25 MG CAPSULE ONE (22:48)
[2018-11-16 23:18] LABS: BASO % 0.5 % (0-2.0); EOS % 2.1 % (0-4.5); HEMATOCRIT 39.5 % (35.4-49); HEMOGLOBIN 13.8 GM/dL (11.7-16.9); LYMPH % 20.2 % (8-40); MEAN CELL VOLUME 91.2 fl (80-96); MEAN PLT VOLUME 6.9 fl (7.5-11.1); MONO % 8.2 % (3.8-10.2); PLATELET COUNT 611 K/MM3 (134-434); RBC 4.33 M/mm3 (4.00-5.60); RDW 12.7 % (11.9-15.9); WHITE BLOOD COUNT 10.4 K/mm3 (4.0-10.0)
[2018-11-17] MEDS ORDERED: methylPREDNISolone NA SUCC 125 MG/2 ML VIAL IVPUSH ONE (00:01)
[2018-11-17 00:18] LABS: ALBUMIN 3.3 g/dl (3.4-5.0); ALK PHOS 92 U/L (45-117); ANION GAP 9 MMOL/L (8-16); BILIRUBIN,TOTAL 0.1 mg/dL (0.2-1); BLOOD UREA NITROGEN 6 mg/dL (7-18); CHLORIDE 95 mmol/L (98-107); CO2 29 mmol/L (21-32); CREATININE 0.5 mg/dL (0.55-1.3); GLUCOSE,RANDOM 91 mg/dL (74-106); N-TERMINAL BNP 48.9 pg/ml (5-125); POTASSIUM 4.5 mmol/L (3.5-5.1); SGOT/AST 18 U/L (15-37); SGPT/ALT 22 U/L (13-61); SODIUM 133 mmol/L (136-145); TOT PROT 7.1 g/dl (6.4-8.2)
[2018-11-17] MEDS ORDERED: methylPREDNISolone NA SUCC 125 MG/2 ML VIAL ONE (00:22)
--- NOTE | 2018-11-17 13:32 | EKG ---
Test Reason : Blood Pressure : / mmHG Vent. Rate : 106 BPM Atrial Rate : 106 BPM P-R Int : 136 ms QRS Dur : 082 ms QT Int : 340 ms P-R-T Axes : 070 065 074 degrees QTc Int : 451 ms POOR DATA QUALITY, INTERPRETATION MAY BE ADVERSELY AFFECTED SINUS TACHYCARDIA NONSPECIFIC ST ABNORMALITY ABNORMAL ECG WHEN COMPARED WITH ECG OF 02-NOV-2018 03:59, NO SIGNIFICANT CHANGE WAS FOUND Confirmed by MD DOLLY, ARIEL ([id number]) on 11/17/2018 1:32:12 PM Referred By: Confirmed By:ARIEL ALBERTO MD
== END 2018-11-17 06:20 | disposition home or self-care (01) ==
LOC: JER 20:53
PROC: 3E0F7GC Introduction of Other Therapeutic Substance into Respiratory Tract, Via Natural or Artificial Opening (ICD-10-PCS; principal; 2018-11-16)
PROC: 3E0333Z Introduction of Anti-inflammatory into Peripheral Vein, Percutaneous Approach (ICD-10-PCS; 2018-11-16)
DX: R06.02 Shortness of breath (principal); J44.9 Chronic obstructive pulmonary disease, unspecified; F10.120 Alcohol abuse with intoxication, uncomplicated; D64.9 Anemia, unspecified; Z87.19 Personal history of other diseases of the digestive system
CPT/HCPCS: 36415; 71275-TC; 80053; 82550; 83880; 84484; 85025; 85379; 93005; 93010; 94640; 96374; 99281-25

== ENCOUNTER 2019-02-27 15:22 | Inpatient (IN) | payer OTHER ==
--- NOTE | 2019-02-27 16:39 | PDOC ---
History of Present Illness - General Chief Complaint: Back Pain Stated Complaint: LOWER BACK PAIN Time Seen by Provider: 02/27/19 15:46 History Source: Patient - History of Present Illness Initial Comments: 02/27/19 16:51 The patient is a 53 year old male with a PMH of ETOH abuse, COPD, anemia, fatty liver and diverticulitis who presents to our ED c/o 3 day h/o back pain. Pain is constant, 11/10 and localized to his lower R back. No numbness/tingling , bladder/bowel incontinence difficulty ambulating, dysuria/hematuria. States he took Motrin at home with little relief. No h/o trauma. States he normally drinks 8 cans of beer daily, however he only drank two cans today 2/2 to his symptoms. The patient denies chest pain, abdominal pain, palpitations, lightheadedness, nausea/vomiting, cough, sore throat. Allergy: ASA, phenobarbital Past History - Past Medical History Allergies/Adverse Reactions: Allergies Allergy/AdvReac Type Severity Reaction Status Date / Time aspirin Allergy Unknown Verified 02/27/19 16:39 phenobarbital Allergy Unknown Verified 02/27/19 16:39 Home Medications: Ambulatory Orders Albuterol Sulfate [Proair Hfa] 1 - 2 inh IH Q4HWA PRN 02/27/19 Anemia: Yes COPD: Yes GI Disorders: Yes (colitis, enlarged liver) - Surgical History Abdominal Surgery: Yes (hernia bilat) - Immunization History TDAP Vaccination: Yes Immunization Up to Date: Yes - Suicide/Smoking/Psychosocial Hx Smoking History: Never smoked Have you smoked in the past 12 months: No Number of Cigarettes Smoked Daily: 6 Information on smoking cessation initiated: No 'Breaking Loose' booklet given: 11/02/18 Hx Alcohol Use: No Drug/Substance Use Hx: No Substance Use Type: Alcohol Review of Systems - Review of Systems Constitutional: No: Chills, Fever HEENTM: No: Recent change in vision Respiratory: Yes: Wheezing Cardiac (ROS): Yes: Chest Pain. No: Lightheadedness, Palpitations, Syncope ABD/GI: Yes: Vomiting. No: Constipated, Diarrhea, Nausea *Physical Exam - Vital Signs Last Vital Signs Temp Pulse Resp BP Pulse Ox 97.4 F L 86 18 175/97 H 96 02/27/19 15:32 02/27/19 15:32 02/27/19 15:32 02/27/19 15:32 02/27/19 15:32 - Physical Exam General Appearance: Yes: Appropriately Dressed, Thin HEENT: positive: Normal Voice, Hearing Grossly Normal Neck: positive: Trachea midline, Supple Respiratory/Chest: positive: Wheezing. 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 Hypertensive 175/97 @ presentation. Attending exam shows RLQ TTP. Scattered wheezes on exam. Will treat for presumptive COPD exacerbation, will also monitor for alcohol withdrawal as well as acute cholecystitis, pancreatitis. PLAN: RUQ U/S, Lipase, Basic labs. Symptomatic care w/Duo Neb and Tylenol. Reassess. 02/27/19 18:22 Patient reassessed @ bedside, s/p Duo Neb Back pain 07/18 --> 610 s/p Tylenol U/S pending 02/27/19 18:24 LFT's elevated (60's) No leukocytosis 02/27/19 18:50 Na 126 -? 2/2 to beer potomania vs. decreased PO intake Will give addl IV NS Serum osmality, Urine lytes pending 02/27/19 19:18 My read of U/S shows no cholelithiasis. 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 Beer Potomania *DC/Admit/Observation/Transfer Diagnosis at time of Disposition: Hyponatremia - Discharge Dispostion Condition at time of disposition: Fair Decision to Admit order: Yes - Referrals - Patient Instructions - Post Discharge Activity
[2019-02-27] MEDS ORDERED: diazePAM CARPU-JECT 10 MG/2 ML DISP.SYRIN IVPUSH ONE (17:04)
[2019-02-27] MEDS ORDERED: KETOROLAC TROMETHAMINE 30 MG/1 ML VIAL IVPUSH ONE (17:04)
[2019-02-27] MEDS ORDERED: SODIUM CHLORIDE 0.9% 500 ML INFUS.BAG IV ONE ×2 (17:04→18:54)
[2019-02-27] MEDS ORDERED: ALBUTEROL SO4 2.5/IPRATROPIUM 0.5 INH SOL 3 ML VIAL.NEB. NEB ONE ×2 (17:05→17:07)
[2019-02-27] MEDS ORDERED: diazePAM 5 MG TABLET ONE (17:08)
[2019-02-27] MEDS ORDERED: KETOROLAC TROMETHAMINE 30 MG/1 ML VIAL ONE (17:08)
[2019-02-27] MEDS ORDERED: ONDANSETRON 4 MG/2 ML VIAL IVPUSH ONE (17:18)
[2019-02-27] MEDS ORDERED: ACETAMINOPHEN 1000 MG/100 ML VIAL (NON FORMULARY) IVPB ONE (17:18)
[2019-02-27] MEDS ORDERED: ACETAMINOPHEN INJECTION 100 ML IVPB ONE (17:21)
[2019-02-27] MEDS ORDERED: ONDANSETRON 4 MG/2 ML VIAL ONE (17:22)
--- NOTE | 2019-02-27 17:44 | PDOC ---
Documentation entered by Channing Benitez SCRIBE, acting as scribe for Rashad Kirkland MD. Rashad Kirkland MD: This documentation has been prepared by the Emmanuel hoffman Collisia, SCRIBE, under my direction and personally reviewed by me in its entirety. I confirm that the documentation accurately reflects all work, treatment, procedures, and medical decision making performed by me. Attending Attestation - Resident Resident Name: StoneJacquelin - ED Attending Attestation I have performed the following: I have examined & evaluated the patient, The case was reviewed & discussed with the resident, I agree w/resident's findings & plan, Exceptions are as noted - HPI HPI: 02/27/19 17:43 The patient is a 53 year old male with a significant past medical history of ETOH abuse, diverticulitis, COPD, fatty liver and anemia who presents to the emergency department with right sided lower back pain for about 3 days. The patient states that his back pain has been constant and severe. He reports some associated nausea, vomiting and intermittent chest pain with his back pain as well as some right lower quadrant belly pain. The patient endorses taking some motrin at home with little relief. He denies any prior injury, fall, numbness, weakness or tingling sensation. He denies any other symptoms or complaints. - Physicial Exam PE: 02/27/19 23:43 Vitals: Triage Vital signs reviewed General Appearance: no acute distress, well nourished well developed, Head: Atraumatic, Eyes: Pupils equal reactive round, extraocular movement intact Throat: Posterior oropharynx without erythema, mucous membranes moist, no tongue fasciculation Neck: Supple;No Nucal rigidity Lungs: Clear to auscultation bilateral, good air movement bilaterally, Abdomen: Soft, non distended, normal bowel sounds, right upper quadrant pain Extremities: Full range of motion to all extremities, no cyanosis, clubbing, or edema Skin: Warm and dry, no rashes or lesions, no rash, no petechiae Neuro: Bilateral tremor to both arms extinguishes with intent Strength intact to all extremities, Sensation intact to all extremities,gait normal Psych: normal mood, normal affect - Medical Decision Making 02/27/19 17:43 The patient is a 53 year old male with a significant past medical history of ETOH abuse, diverticulitis, COPD, fatty liver and anemia who presents to the emergency department with right sided lower back pain for about 3 days. The patient will get an Ultrasound, Chest x-ray, EKG, lab, fluids, and pain medication for further evaluation. Laboratory analysis notable for hyponatremia slightly elevated LFTs Chest x-ray within normal limits interpreted by nd ultrasound with no evidence of acute pathology besides fatty liver Patient feels better after IV fluids and Tylenol We will admit the hospital for further management of hypernatremia. Patient given Ativan IV as withdrawal prophylaxis. Heart Score/ECG Review - ECG Impressions Comment:: 02/28/19 00:43 EKG performed at 2051 demonstrates normal sinus rhythm [address] elevations or T-wave inversions.
[2019-02-27 17:46] LABS: BASO % 0.6 % (0-2.0); EOS % 0.4 % (0-4.5); HEMATOCRIT 40.9 % (35.4-49); HEMOGLOBIN 13.9 GM/dL (11.7-16.9); LYMPH % 13.1 % (8-40); MCH 31.7 pg (25.7-33.7); MEAN CELL VOLUME 93.2 fl (80-96); MEAN PLT VOLUME 7.1 fl (7.5-11.1); NEUT % 79.9 % (42.8-82.8); PLATELET COUNT 276 K/MM3 (134-434); RBC 4.38 M/mm3 (4.00-5.60); RDW 12.8 % (11.9-15.9)
[2019-02-27 18:13] LABS: ALBUMIN 4.1 g/dl (3.4-5.0); BILIRUBIN,TOTAL 0.7 mg/dL (0.2-1); BLOOD UREA NITROGEN 5.8 mg/dL (7-18); CALCIUM 8.6 mg/dL (8.5-10.1); CREATININE 0.7 mg/dL (0.55-1.3); TOT PROT 7.3 g/dl (6.4-8.2)
[2019-02-27] MEDS ORDERED: LORazepam 2 MG/ML SDV VIAL ONE (20:09)
--- NOTE | 2019-02-27 22:53 | HP ---
Admitting History and Physical - Primary Care Physician PCP: Greyson Mccain - Admission Chief Complaint: Back Pain History of Present Illness: The patient is a 53 year old male with a significant past medical history of ETOH abuse, diverticulitis, COPD, fatty liver and anemia who presented to the emergency department with right sided lower back pain for about 3 days. The patient states that his back pain has been constant and severe. He reports some associated nausea, vomiting and intermittent chest pain with his back pain as well as some right lower quadrant belly pain. The patient asmitts to taking some motrin at home with little relief. He denies any prior injury, fall, numbness, weakness or tingling sensation. He denies any other symptoms or complaints. History Source: Patient Limitations to Obtaining History: Other (During Assessment and interview patient began vomitting) - Past Medical History Pulmonary: Yes: COPD Gastrointestinal: Yes: Diverticulitis Hepatobiliary: Yes: Other (alcoholic liver disease) Renal/: Yes: Other (hyponatremia) Heme/Onc: Yes: Anemia Infectious Disease: Yes: Other (chronic folliculitis/fungal skin disease?) Psych: Yes: Addictions (alcohol and cigarettes) Musculoskeletal: Yes: Chronic low back pain Endocrine: Yes: Other (Hyponatremia) Dermatology: Yes: Other (chronic pruritic scaly rash lower abdomen, inguinal area and lower extremities ) - Past Surgical History Past Surgical History: Yes: Hernia Repair (right inguinal hernia repair). 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 History of Recent Travel: No Home Medications - Allergies Allergies/Adverse Reactions: Allergies Allergy/AdvReac Type Severity Reaction Status Date / Time aspirin Allergy Unknown Verified 02/27/19 16:39 phenobarbital Allergy Unknown Verified 02/27/19 16:39 - Home Medications Home Medications: Ambulatory Orders Albuterol Sulfate [Proair Hfa] 1 - 2 inh IH Q4HWA PRN 02/27/19 Family Disease History - Family Disease History Family Disease History: CA: Father (unknown type, ~60), Respiratory: Mother (emphysema, ) Review of Systems Findings/Remarks: Back Pain 06/17 - Review of Systems Constitutional: reports: No Symptoms Eyes: reports: No Symptoms, Other (No recent change in vision) HENT: reports: No Symptoms Neck: reports: No Symptoms Cardiovascular: reports: No Symptoms Respiratory: reports: Cough (non-productive) Gastrointestinal: reports: Abdominal Pain Genitourinary: reports: No Symptoms Neurological: reports: No Symptoms Hematology/Lymphatic: reports: No Symptoms Physical Examination Vital Signs: Vital Signs Temperature 98.4 F 02/27/19 21:00 Pulse Rate 99 H 02/27/19 21:00 Respiratory Rate 18 02/27/19 21:00 Blood Pressure 171/100 H 02/27/19 21:00 O2 Sat by Pulse Oximetry (%) 97 02/27/19 21:00 Constitutional: Yes: Well Nourished Eyes: Yes: WNL, Conjunctiva Clear, EOM Intact HENT: Yes: WNL, Atraumatic, Normocephalic Neck: Yes: WNL, Supple, Trachea Midline Cardiovascular: Yes: WNL, Regular Rate and Rhythm Respiratory: Yes: WNL, Regular, CTA Bilaterally Gastrointestinal: Yes: WNL, Normal Bowel Sounds, Tenderness ...Rectal Exam: Yes: Deferred Renal/: Yes: WNL Musculoskeletal: Yes: Back Pain Extremities: Yes: WNL, Other Edema: No Peripheral Pulses WNL: Yes Integumentary: Yes: Rash (scaly rash on abdomen and back) Neurological: Yes: WNL, Alert, Oriented ...Motor Strength: WNL Psychiatric: Yes: WNL Labs: CBC, BMP 02/27/19 17:35 02/27/19 17:35 Problem List - Problems (1) Abdominal pain Assessment/Plan: Ultrasound completed. Waiting for report Code(s): R10.9 - UNSPECIFIED ABDOMINAL PAIN Qualifiers: Abdominal location: right upper quadrant Qualified Code(s): R10.11 - Right upper quadrant pain (2) Alcohol dependence Assessment/Plan: -Alcohol and Serum - Thiamine and Folic Acid labs -Order drug screen Code(s): F10.20 - ALCOHOL DEPENDENCE, UNCOMPLICATED (3) COPD (chronic obstructive pulmonary disease) Assessment/Plan: Continue Albuterol Sulfate Code(s): J44.9 - CHRONIC OBSTRUCTIVE PULMONARY DISEASE, UNSPECIFIED Qualifiers: COPD type: unspecified COPD Qualified Code(s): J44.9 - Chronic obstructive pulmonary disease, unspecified (4) Hyponatremia Assessment/Plan: -Recheck BMP -Seizure Precautions -Fall Precautions Code(s): E87.1 - HYPO-OSMOLALITY AND HYPONATREMIA (5) Back pain Assessment/Plan: Lidoderm Patch Code(s): M54.9 - DORSALGIA, UNSPECIFIED Visit type - Emergency Visit Emergency Visit: Yes ED Registration Date: 02/27/19 Care time: The patient presented to the Emergency Department on the above date and was hospitalized for further evaluation of their emergent condition. - New Patient This patient is new to me today: Yes Date on this admission: 02/27/19 - Critical Care Critical Care patient: No
[2019-02-27] MEDS ORDERED: ALBUTEROL SO4 8 GM HFA INHALER IH PRN ×2 (23:39→23:42)
[2019-02-27] MEDS ORDERED: LIDOCAINE 5% TOPICAL PATCH TP ONE (23:42)
[2019-02-27] MEDS ORDERED: ONDANSETRON 4 MG/2 ML VIAL IVPUSH PRN (23:46)
[2019-02-28] MEDS ORDERED: ALBUTEROL SO4 8 GM HFA INHALER IH PRN (00:06)
[2019-02-28 00:49] VITALS: BMI 16.2
--- NOTE | 2019-02-28 10:53 | PN ---
Progress Note, Physician Chief Complaint: AWAKE ALERT EVENTS REVIEWED C/O RIGHT SIDED FLANK PAIN - Current Medication List Current Medications: Active Medications Albuterol Sulfate (Ventolin Hfa Inhaler -) 1 - 2 puff IH Q4H PRN PRN Reason: SHORT OF BREATH/WHEEZING Ondansetron HCl (Zofran Injection) 4 mg IVPUSH Q4H PRN PRN Reason: NAUSEA AND/OR VOMITING - Objective Vital Signs: Vital Signs Temperature 97.6 F 02/28/19 09:09 Pulse Rate 87 02/28/19 09:09 Respiratory Rate 20 02/28/19 09:09 Blood Pressure 142/68 02/28/19 09:09 O2 Sat by Pulse Oximetry (%) 96 02/27/19 21:25 Constitutional: Yes: Mild Distress Eyes: Yes: WNL HENT: Yes: WNL Neck: Yes: WNL Cardiovascular: Yes: Regular Rate and Rhythm Respiratory: Yes: WNL Gastrointestinal: Yes: Soft Genitourinary: Yes: WNL Musculoskeletal: Yes: Back Pain Peripheral Pulses WNL: Yes Integumentary: Yes: Rash Wound/Incision: Yes: Clean/Dry Neurological: Yes: Pre-Existing Deficit ...Motor Strength: WNL Psychiatric: Yes: WNL Labs: CBC, BMP 02/27/19 17:35 02/27/19 17:35 Problem List - Problems (1) Back pain Code(s): M54.9 - DORSALGIA, UNSPECIFIED (2) Hyponatremia Code(s): E87.1 - HYPO-OSMOLALITY AND HYPONATREMIA (3) Alcohol use disorder Code(s): OND4470 - (4) Alcoholic liver disease Code(s): K70.9 - ALCOHOLIC LIVER DISEASE, UNSPECIFIED (5) Folliculitis Code(s): L73.9 - FOLLICULAR DISORDER, UNSPECIFIED Assessment/Plan CHECK UA/C&S/TOXICOLOGY NOW PAIN CONTROL IF SONO NORMAL DC HOME TOMORROW RENAL EVAL HYPOONATREMIA
[2019-02-28] MEDS ORDERED: ACETAMINOPHEN 325 MG TABLET (FP) PO PRN (10:54)
--- NOTE | 2019-02-28 11:11 | CONSULT ---
Consult - text type - Consultation Consultation Note: Renal consult for hyponatremia Coverage for Dr. Batista This is a 53 year old gentleman with hx of ETOH abuse, diverticulitis, COPD, Current smoker, fatty liver and anemia who presented with back pain and found to have hyponatremia. Pt was noted to have hyponatremia in the past and improved with IVF. Denies any confusion, lethargy, weakness, or seizures. Continues to have abd pain. No chest pain or sob. Reports that he drinks daily. Has very little food intake. No fever or chills. PMHx: as per HPI Family Hx: NC Social Hx: + etoh, + tobacco family Hx: NC ROS: as per HPI, all other pertinent ros negative Vital Signs Temperature 97.6 F 02/28/19 09:09 Pulse Rate 87 02/28/19 09:09 Respiratory Rate 20 02/28/19 09:09 Blood Pressure 142/68 02/28/19 09:09 O2 Sat by Pulse Oximetry (%) 96 02/27/19 21:25 Intake & Output 02/25/19 02/26/19 02/27/19 02/28/19 23:59 23:59 23:59 23:59 Intake Total 0 Balance 0 Weight 45.495 kg NAD awake and alert neck suppert dry MM RRR CTA soft NT/ND, no ascities no LE edema no bladder distension CBC, BMP 02/27/19 17:35 02/27/19 17:35 Current Medications Acetaminophen (Tylenol -) 650 mg PO Q6H PRN PRN Reason: PAIN OR FEVER Albuterol Sulfate (Ventolin Hfa Inhaler -) 1 - 2 puff IH Q4H PRN PRN Reason: SHORT OF BREATH/WHEEZING Hydrocortisone (Hytone 2.5% Lotion -) 1 applic TP BID EMMA Lidocaine (Lidoderm Patch -) 1 patch TP DAILY EMMA Miscellaneous (Lidoderm Patch Removal) 1 each MC DAILY@2200 EMMA Ondansetron HCl (Zofran Injection) 4 mg IVPUSH Q4H PRN PRN Reason: NAUSEA AND/OR VOMITING Tramadol HCl (Ultram -) 50 mg PO Q8H PRN PRN Reason: PAIN LEVEL 7 - 10 53 year old gentleman with hx of ETOH abuse, diverticulitis, COPD, Current smoker, fatty liver and anemia who presented with back pain and found to have hyponatremia. #Hypovolemic hyponatremia in setting of poor solute intake and ETOH abuse vs. hyponatremia in setting of liver disease (less likely as pt does not have ascities) #ABd pain #ETOH abuse start isotonic saline at 83cc per hour Trend Na daily oral intake as tolerated etoh withdrawal precautions work up for abd pain as per primary Thank you Martin Verma DO
[2019-02-28] MEDS: SODIUM CHLORIDE 1,000 ML IV SCH ×2 (12:03→22:47)
[2019-02-28 12:05] LABS: HEMATOCRIT 39.8 % (35.4-49); HEMOGLOBIN 13.4 GM/dL (11.7-16.9); MCH 31.4 pg (25.7-33.7); MCHC 33.7 g/dl (32.0-35.9); MEAN CELL VOLUME 93.2 fl (80-96); MEAN PLT VOLUME 7.5 fl (7.5-11.1); PLATELET COUNT 305 K/MM3 (134-434); RBC 4.27 M/mm3 (4.00-5.60); RDW 12.8 % (11.9-15.9); WHITE BLOOD COUNT 14.3 K/mm3 (4.0-10.0)
[2019-02-28] MEDS: traMADol HCL 50 MG TABLET PO PRN ×2 (12:07→21:39)
[2019-02-28 12:32] LABS: ALBUMIN 3.8 g/dl (3.4-5.0); BILIRUBIN,TOTAL 1.7 mg/dL (0.2-1); BLOOD UREA NITROGEN 7.2 mg/dL (7-18); CALCIUM 9.2 mg/dL (8.5-10.1); CREATININE 0.8 mg/dL (0.55-1.3); POTASSIUM 4.4 mmol/L (3.5-5.1)
--- NOTE | 2019-02-28 13:08 | EKG ---
Test Reason : Blood Pressure : / mmHG Vent. Rate : 094 BPM Atrial Rate : 094 BPM P-R Int : 146 ms QRS Dur : 078 ms QT Int : 362 ms P-R-T Axes : 070 056 067 degrees QTc Int : 452 ms POOR DATA QUALITY, INTERPRETATION MAY BE ADVERSELY AFFECTED SINUS RHYTHM WITH FUSION COMPLEXES Confirmed by SHAMEKA HENRIQUEZ MD ([id number]) on 02/28/2019 1:08:17 PM Referred By: Confirmed By:SHAMEKA HENRIQUEZ MD
[2019-02-28 13:56] LABS: URINE APPEARANCE CLEAR; URINE BILIRUBIN NEGATIVE (NEGATIVE); URINE COLOR ORANGE; URINE GLUCOSE (UA) NEGATIVE (NEGATIVE); URINE KETONE 2+ (NEGATIVE); URINE LEUK ESTERASE NEGATIVE (NEGATIVE); URINE NITRITE NEGATIVE (NEGATIVE); URINE PROTEIN NEGATIVE (NEGATIVE)
[2019-02-28 14:11] LABS: COCAINE, UR NEGATIVE ng/ml (CUTOFF=300); METHADONE, UR NEGATIVE ng/ml (CUTOFF=300); OPIATES, URI NEGATIVE ng/ml (CUTOFF=300); PHENCYCLIDINE,URINE NEGATIVE ng/ml (CUTOFF=25); URINE AMPHETAMINES NEGATIVE ng/ml (CUTOFF=500); URINE BARBITURATES NEGATIVE ng/ml (CUTOFF=200); URINE BENZODIAZEPINES NEGATIVE ng/ml (CUTOFF=200)
[2019-02-28] MEDS: HYDROCORTISONE 2.5% LOTION - 1 BOTTLE TP SCH (21:38)
--- NOTE | 2019-03-01 08:08 | PN ---
Progress Note, Physician History of Present Illness: abdominal pain - Current Medication List Current Medications: Active Medications Acetaminophen (Tylenol -) 650 mg PO Q6H PRN PRN Reason: PAIN OR FEVER Albuterol Sulfate (Ventolin Hfa Inhaler -) 1 - 2 puff IH Q4H PRN PRN Reason: SHORT OF BREATH/WHEEZING Hydrocortisone (Hytone 2.5% Lotion -) 1 applic TP BID [facility] Last Admin: 02/28/19 21:38 Dose: 1 applic Sodium Chloride (Normal Saline -) 1,000 mls @ 83 mls/hr IV ASDIR [facility] Last Admin: 02/28/19 22:47 Dose: 83 mls/hr Lidocaine (Lidoderm Patch -) 1 patch TP DAILY [facility] Miscellaneous (Lidoderm Patch Removal) 1 each MC DAILY@2200 [facility] Ondansetron HCl (Zofran Injection) 4 mg IVPUSH Q4H PRN PRN Reason: NAUSEA AND/OR VOMITING Tramadol HCl (Ultram -) 50 mg PO Q8H PRN PRN Reason: PAIN LEVEL 7 - 10 Last Admin: 02/28/19 21:39 Dose: 50 mg - Objective Vital Signs: Vital Signs Temperature 99.3 F 03/01/19 06:00 Pulse Rate 81 03/01/19 06:00 Respiratory Rate 20 02/28/19 22:44 Blood Pressure 152/86 03/01/19 06:00 O2 Sat by Pulse Oximetry (%) 98 02/28/19 21:00 Cardiovascular: Yes: Regular Rate and Rhythm Respiratory: Yes: Regular, CTA Bilaterally Gastrointestinal: Yes: Normal Bowel Sounds, Soft, Tenderness (right flank) Labs: CBC, BMP 02/28/19 11:36 Assessment/Plan - Problems (1) Abdominal pain Assessment/Plan: Ultrasound completed. Waiting for report ct scan GI consult Code(s): R10.9 - UNSPECIFIED ABDOMINAL PAIN Qualifiers: Abdominal location: right upper quadrant Qualified Code(s): R10.11 - Right upper quadrant pain (2) Alcohol dependence Assessment/Plan: -Alcohol and Serum -Thiamine and Folic Acid labs -Order drug screen Code(s): F10.20 - ALCOHOL DEPENDENCE, UNCOMPLICATED (3) COPD (chronic obstructive pulmonary disease) Assessment/Plan: Continue Albuterol Sulfate Code(s): J44.9 - CHRONIC OBSTRUCTIVE PULMONARY DISEASE, UNSPECIFIED Qualifiers: COPD type: unspecified COPD Qualified Code(s): J44.9 - Chronic obstructive pulmonary disease, unspecified (4) Hyponatremia Assessment/Plan: -Recheck BMP -Seizure Precautions -Fall Precautions Code(s): E87.1 - HYPO-OSMOLALITY AND HYPONATREMIA (5) Back pain Assessment/Plan: Lidoderm Patch Code(s): M54.9 - DORSALGIA, UNSPECIFIED
[2019-03-01 08:29] LABS: BASO % 0.5 % (0-2.0); HEMATOCRIT 37.3 % (35.4-49); HEMOGLOBIN 12.7 GM/dL (11.7-16.9); MCH 31.8 pg (25.7-33.7); MEAN CELL VOLUME 93.6 fl (80-96); MEAN PLT VOLUME 7.7 fl (7.5-11.1); MONO % 9.4 % (3.8-10.2); NEUT % 76.1 % (42.8-82.8); PLATELET COUNT 254 K/MM3 (134-434); RBC 3.98 M/mm3 (4.00-5.60); RDW 12.6 % (11.9-15.9); WHITE BLOOD COUNT 10.3 K/mm3 (4.0-10.0)
[2019-03-01 08:34] LABS: BLOOD UREA NITROGEN 5.5 mg/dL (7-18); CALCIUM 8.2 mg/dL (8.5-10.1); CREATININE 0.6 mg/dL (0.55-1.3); MAGNESIUM 2.2 mg/dL (1.8-2.4); PHOSPHOROUS 2.9 mg/dL (2.5-4.9); POTASSIUM 4.2 mmol/L (3.5-5.1)
[2019-03-01] MEDS: SODIUM CHLORIDE 1,000 ML IV SCH ×2 (09:06→12:29)
[2019-03-01] MEDS: LIDOCAINE 5% TOPICAL PATCH TP SCH (09:21)
[2019-03-01] MEDS: HYDROCORTISONE 2.5% LOTION - 1 BOTTLE TP SCH ×2 (12:29→21:49)
--- NOTE | 2019-03-01 15:55 | PN ---
Progress Note, Physician History of Present Illness: Pt seen and examined at bedside. He is awake and alert. He denies headache or dizziness. - Current Medication List Current Medications: Active Medications Acetaminophen (Tylenol -) 650 mg PO Q6H PRN PRN Reason: PAIN OR FEVER Albuterol Sulfate (Ventolin Hfa Inhaler -) 1 - 2 puff IH Q4H PRN PRN Reason: SHORT OF BREATH/WHEEZING Hydrocortisone (Hytone 2.5% Lotion -) 1 applic TP BID [facility] Last Admin: 03/01/19 12:29 Dose: 1 applic Sodium Chloride (Normal Saline -) 1,000 mls @ 83 mls/hr IV ASDIR [facility] Last Admin: 03/01/19 12:29 Dose: Not Given Lidocaine (Lidoderm Patch -) 1 patch TP DAILY [facility] Last Admin: 03/01/19 09:21 Dose: 1 patch Miscellaneous (Lidoderm Patch Removal) 1 each MC DAILY@2200 [facility] Ondansetron HCl (Zofran Injection) 4 mg IVPUSH Q4H PRN PRN Reason: NAUSEA AND/OR VOMITING Tramadol HCl (Ultram -) 50 mg PO Q8H PRN PRN Reason: PAIN LEVEL 7 - 10 Last Admin: 02/28/19 21:39 Dose: 50 mg - Objective Vital Signs: Vital Signs Temperature 99.3 F 03/01/19 06:00 Pulse Rate 81 03/01/19 06:00 Respiratory Rate 20 02/28/19 22:44 Blood Pressure 152/86 03/01/19 06:00 O2 Sat by Pulse Oximetry (%) 98 02/28/19 21:00 Constitutional: Yes: Calm Eyes: Yes: Conjunctiva Clear HENT: Yes: Atraumatic Neck: Yes: Supple Cardiovascular: Yes: S1, S2 Respiratory: Yes: CTA Bilaterally Gastrointestinal: Yes: Soft Genitourinary: Yes: WNL Musculoskeletal: Yes: WNL Edema: No Integumentary: Yes: WNL Neurological: Yes: Oriented Psychiatric: Yes: Oriented Labs: CBC, BMP 03/01/19 06:43 03/01/19 06:43 Assessment/Plan Current Medications Generic Name Dose Route Start Last Admin Trade Name Freq PRN Reason Stop Dose Admin Acetaminophen 650 mg 02/28/19 10:54 Tylenol - PO Q6H PRN PAIN OR FEVER Albuterol Sulfate 1 - 2 puff 02/28/19 00:06 Ventolin Hfa Inhaler - IH Q4H PRN SHORT OF BREATH/WHEEZING Hydrocortisone 1 applic 02/28/19 22:00 03/01/19 12:29 Hytone 2.5% Lotion - TP 1 applic BID [facility] Administration Sodium Chloride 1,000 mls @ 83 mls/hr 02/28/19 11:30 03/01/19 12:29 Normal Saline - IV Not Given ASDIR [facility] Lidocaine 1 patch 03/01/19 10:00 03/01/19 09:21 Lidoderm Patch - TP 1 patch DAILY [facility] Administration Miscellaneous 1 each 03/01/19 22:00 Lidoderm Patch Removal MC DAILY@2200 [facility] Ondansetron HCl 4 mg 02/27/19 23:46 Zofran Injection IVPUSH Q4H PRN NAUSEA AND/OR VOMITING Tramadol HCl 50 mg 02/28/19 10:54 02/28/19 21:39 Ultram - PO 50 mg Q8H PRN Administration PAIN LEVEL 7 - 10 Impression 1. hyponatremia 2. diverticulosis 3. etoh abuse 4. anemia 5. copd 6. microscopic hematuria Plan - sodium is improving - cont saline - repeat labs in am - discussed etoh use - pt is still actively drinking
--- NOTE | 2019-03-01 21:05 | CON.GI ---
Consult Consult Specialty:: Gastroenterology Referred by:: Dr Ma Reason for Consultation:: Abdominal pain - History of Present Illness Chief Complaint: Right lower back pain History of Present Illness: 53M is admitted with right lower back pain. It is aggravated by motion and does not allow him to bend over or to lift heavy items. It is not affected by eating or defecation. I have never seen him in the office but did see him in consultation for sigmoid diverticulitis. I advised a colonoscopy in 8 weeks following that episode but he tells me that he feels that colonoscopy carries too high a risk. He remains homeless and lives in an immobilized van on a private property. He has a mental health care and this time admits to hearing voices and being told of schizophrenia. He drinks 3 beers daily. He has occasional rectal bleeding and has been told of hemorrhoids and alcoholic liver disease. He screened negative for hepatitis B & C in 10/27 - History Source History Provided By: Patient Limitations to Obtaining History: Poor Historian - Past Medical History Pulmonary: Yes: COPD Gastrointestinal: Yes: Diverticulitis (10/27) Hepatobiliary: Yes: Other (alcoholic liver disease) Renal/: Yes: Other (hyponatremia) Infectious Disease: Yes: Other (chronic folliculitis/fungal skin disease?) Psych: Yes: Addictions (alcohol and cigarettes), Schizophrenia Musculoskeletal: Yes: Chronic low back pain Endocrine: Yes: Other (Hyponatremia) Dermatology: Yes: Other (chronic pruritic scaly rash lower abdomen, inguinal area and lower extremities ) Additional Medical History: Hyponatremia and prone to hypoglycemia. Bilateral inguinal hernias - Past Surgical History Past Surgical History: Yes: Hernia Repair (right inguinal hernia repair). 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 Place of : [facility] History of Recent Travel: No Home Medications - Allergies Allergies/Adverse Reactions: Allergies Allergy/AdvReac Type Severity Reaction Status Date / Time aspirin Allergy Unknown Verified 02/27/19 16:39 phenobarbital Allergy Unknown Verified 02/27/19 16:39 - Home Medications Home Medications: Ambulatory Orders Albuterol Sulfate [Proair Hfa] 1 - 2 inh IH Q4HWA PRN 02/27/19 Family Disease History - Family Disease History Family Disease History: CA: Father (unknown type, ~60), Respiratory: Mother (emphysema, ) Review of Systems - Review of Systems Constitutional: reports: No Symptoms Eyes: reports: No Symptoms HENT: reports: No Symptoms Neck: reports: No Symptoms Cardiovascular: reports: No Symptoms Respiratory: reports: No Symptoms Gastrointestinal: reports: No Symptoms Musculoskeletal: reports: Back Pain Integumentary: reports: Eczema, Pruritis Physical Exam-GI Vital Signs: Vital Signs Temperature 97.7 F 03/01/19 15:58 Pulse Rate 61 03/01/19 15:58 Respiratory Rate 20 03/01/19 15:58 Blood Pressure 164/78 03/01/19 15:58 O2 Sat by Pulse Oximetry (%) 98 03/01/19 09:00 CBC,CMP WBC 10.3 K/mm3 (4.0-10.0) H 03/01/19 06:43 RBC 3.98 M/mm3 (4.00-5.60) L 03/01/19 06:43 Hgb 12.7 GM/dL (11.7-16.9) 03/01/19 06:43 Hct 37.3 % (35.4-49) 03/01/19 06:43 MCV 93.6 fl (80-96) 03/01/19 06:43 MCH 31.8 pg (25.7-33.7) 03/01/19 06:43 MCHC 34.0 g/dl (32.0-35.9) 03/01/19 06:43 RDW 12.6 % (11.9-15.9) 03/01/19 06:43 Plt Count 254 K/MM3 (134-434) 03/01/19 06:43 MPV 7.7 fl (7.5-11.1) 03/01/19 06:43 Absolute Neuts (auto) 7.8 K/mm3 (1.5-8.0) 03/01/19 06:43 Neutrophils % 76.1 % (42.8-82.8) 03/01/19 06:43 Lymphocytes % 13.0 % (8-40) 03/01/19 06:43 Monocytes % 9.4 % (3.8-10.2) 03/01/19 06:43 Eosinophils % 1.0 % (0-4.5) D 03/01/19 06:43 Basophils % 0.5 % (0-2.0) 03/01/19 06:43 Nucleated RBC % 0 % (0-0) 03/01/19 06:43 Sodium 132 mmol/L (136-145) L 03/01/19 06:43 Potassium 4.2 mmol/L (3.5-5.1) 03/01/19 06:43 Chloride 97 mmol/L (98-107) L 03/01/19 06:43 Carbon Dioxide 28 mmol/L (21-32) 03/01/19 06:43 Anion Gap 7 MMOL/L (8-16) L 03/01/19 06:43 BUN 5.5 mg/dL (7-18) L 03/01/19 06:43 Creatinine 0.6 mg/dL (0.55-1.3) 03/01/19 06:43 Est GFR (CKD-EPI)AfAm 132.11 03/01/19 06:43 Est GFR (CKD-EPI)NonAf 113.99 03/01/19 06:43 Random Glucose 72 mg/dL (74-106) L 03/01/19 06:43 Serum Osmolality 268 mosm/kg (278-305) L 02/27/19 19:42 Calcium 8.2 mg/dL (8.5-10.1) L 03/01/19 06:43 Phosphorus 2.9 mg/dL (2.5-4.9) 03/01/19 06:43 Magnesium 2.2 mg/dL (1.8-2.4) 03/01/19 06:43 Total Bilirubin 1.7 mg/dL (0.2-1) H 02/28/19 11:36 AST 34 U/L (15-37) 02/28/19 11:36 ALT 51 U/L (13-61) 02/28/19 11:36 Alkaline Phosphatase 112 U/L (45-117) 02/28/19 11:36 Troponin I < 0.02 ng/ml (0.00-0.05) 02/27/19 17:35 Total Protein 7.0 g/dl (6.4-8.2) 02/28/19 11:36 Albumin 3.8 g/dl (3.4-5.0) 02/28/19 11:36 Lipase 75 U/L (73-393) 02/27/19 17:35 Serum Folate 19 ng/mL (3.1-17.5) H 02/28/19 07:43 Current Medications Generic Name Dose Route Start Last Admin Trade Name Freq PRN Reason Stop Dose Admin Acetaminophen 650 mg 02/28/19 10:54 Tylenol - PO Q6H PRN PAIN OR FEVER Albuterol Sulfate 1 - 2 puff 02/28/19 00:06 Ventolin Hfa Inhaler - IH Q4H PRN SHORT OF BREATH/WHEEZING Hydrocortisone 1 applic 02/28/19 22:00 03/01/19 12:29 Hytone 2.5% Lotion - TP 1 applic BID [facility] Administration Sodium Chloride 1,000 mls @ 83 mls/hr 02/28/19 11:30 03/01/19 12:29 Normal Saline - IV Not Given ASDIR [facility] Lidocaine 1 patch 03/01/19 10:00 03/01/19 09:21 Lidoderm Patch - TP 1 patch DAILY [facility] Administration Miscellaneous 1 each 03/01/19 22:00 Lidoderm Patch Removal MC DAILY@2200 [facility] Ondansetron HCl 4 mg 02/27/19 23:46 Zofran Injection IVPUSH Q4H PRN NAUSEA AND/OR VOMITING Tramadol HCl 50 mg 02/28/19 10:54 02/28/19 21:39 Ultram - PO 50 mg Q8H PRN Administration PAIN LEVEL 7 - 10 Constitutional: Yes: Calm Eyes: Yes: Conjunctiva Clear HENT: Yes: Atraumatic Neck: Yes: Supple Cardiovascular: Yes: Regular Rate and Rhythm Respiratory: Yes: CTA Bilaterally Gastrointestinal Inspection: Yes: Scars (RIH incision) ...Auscultate: Yes: Normoactive Bowel Sounds ...Palpate: Yes: Soft, Other (nontender) ...Rectal Exam: Yes: Guaiac Negative (brown soft guaiaic negative stool), Hemorrhoids/External, Sphincter Tone Normal, Other (2+ prostate, bilateral nontender indirect inguinal hernias) Musculoskeletal: Yes: Back Pain (right lower) Edema: No Integumentary: Yes: Other (diffuse scaly rash) Neurological: Yes: Alert, Oriented Labs: CBC, BMP 03/01/19 06:43 03/01/19 06:43 Laboratory Tests 11/03/18 11/03/18 06:30 06:30 Iron 22 L TIBC 203 L Iron Saturation 11 L Ferritin 162.8 DANIS Screen Negative Smooth Musc &[employer] Intrp 11 Tiss Transglutamin IgG < 2 Tiss Transglutamin IgA < 2 Hepatitis A Ab Total Negative Hep Bs Antigen Negative Hep Bs Antibody Non reactive Hep B Core Total Ab Negative Hep C Ab Diagnostic <0.1 Laboratory Tests 03/19/18 05/13/18 10/06/18 21:18 16:33 23:12 Sodium 130 L 139 131 L 11/02/18 11/04/18 02/27/19 01:44 06:00 17:35 Sodium 129 L 136 126 L 02/28/19 03/01/19 11:36 06:43 Sodium 129 L 132 L Imaging - Results Ultrasound: Report Reviewed ( Final Report US ABDOMEN US -LIMITED Show Printer-Friendly Version Patient Name: Salazar Alvarez : 1964 ID: [id number] Study Date: 27-Feb-2019 18:45 Osvaldo Paviliosorio Name : SALAZAR ALVAREZ DEPARTMENT OF RADIOLOGY Phys: Rashad Kirkland MD : 1964 Age: 53 Sex: M [facility] Acct: [id number] Loc: [address] Exam Date: 02/27/19 Status: [place] [address] Unit Number: [id number] EXAM#: TYPE/EXAM: RESULT: [id number] US/ABDOMEN US -LIMITED Right upper quadrant abdomen ultrasound Clinical information: right upper quadrant, right flank pain visualization is somewhat limited as the patient was unable to fully cooperate at this time in regards to standard breath-hold imaging. There is probable diffuse fatty infiltration of the liver. The liver appears unremarkable in overall size. No obvious mass lesion is identified. The gallbladder is mildly contracted which limits evaluation for small calculi. No obvious calculus is seen. There is no definite gallbladder wall edema or pericholecystic edema. If clinically indicated correlate with follow-up sonography utilizing optimal preparative fasting The common bile duct diameter appears unremarkable measuring 0.4 cm. The partially visualized pancreas demonstrates no gross pathology. There is no right hydronephrosis. Impression: As noted above. Reported By: Pipe Sanchez MD 02/28/192156 Technologist: Carmen Elias Transcribed Date/Time: 02/28 Radiation Oncology Therapist: Pipe Sanchez Printed Date/Time: By: Signed by: Pipe Sanchez Signed on: 28-Feb-2019 21:58) Problem List - Problems (1) Back pain Code(s): M54.9 - DORSALGIA, UNSPECIFIED (2) Hyponatremia Code(s): E87.1 - HYPO-OSMOLALITY AND HYPONATREMIA (3) Alcohol use disorder Code(s): [id number] - (4) Alcoholic liver disease Code(s): K70.9 - ALCOHOLIC LIVER DISEASE, UNSPECIFIED (5) COPD (chronic obstructive pulmonary disease) Code(s): J44.9 - CHRONIC OBSTRUCTIVE PULMONARY DISEASE, UNSPECIFIED Qualifiers: COPD type: unspecified COPD Qualified Code(s): J44.9 - Chronic obstructive pulmonary disease, unspecified (6) Folliculitis Code(s): L73.9 - FOLLICULAR DISORDER, UNSPECIFIED (7) Inguinal hernia recurrent bilateral Code(s): K40.21 - BILATERAL INGUINAL HERNIA, W/O OBST OR GANGRENE, RECURRENT (8) Schizophrenia Code(s): F20.9 - SCHIZOPHRENIA, UNSPECIFIED Assessment/Plan Impression: - I believe that Salazar's back pain is related to his spine, probable a lumbar disc and not to a GI source - His fatty liver on ultrasound likely reflects alcoholic injury - Nontender bilateral inguinal hernias - Sigmoid diverticulitis in 10/27 - Hemorrhoidal bleeding Plan: - I advised Salazar to quit alcohol and smoking - I advised Salazar to have a colonoscopy as an outpatient. He did not want my card as he tells me that he has a friend who works for a [employer] and told him that it is too dangerous. I explained that his diverticulitis bout in 10/27 could reflect a colon cancer masquerading as diverticulitis and that his bleeding may not be entirely hemorrhoidal. - Will advance diet - NO GI objections to discharge
[2019-03-01] MEDS: traMADol HCL 50 MG TABLET PO PRN (21:49)
[2019-03-01] MEDS: LIDOCAINE PATCH REMOVAL MC SCH (21:50)
[2019-03-02 08:02] LABS: BASO % 0.5 % (0-2.0); EOS % 1.4 % (0-4.5); LYMPH % 11.7 % (8-40); MCH 31.8 pg (25.7-33.7); MCHC 34.2 g/dl (32.0-35.9); MEAN CELL VOLUME 93.2 fl (80-96); MEAN PLT VOLUME 7.9 fl (7.5-11.1); MONO % 10.4 % (3.8-10.2); PLATELET COUNT 254 K/MM3 (134-434); RBC 4.08 M/mm3 (4.00-5.60); RDW 12.4 % (11.9-15.9); WHITE BLOOD COUNT 10.6 K/mm3 (4.0-10.0)
[2019-03-02 08:12] LABS: BLOOD UREA NITROGEN 5.9 mg/dL (7-18); CALCIUM 8.7 mg/dL (8.5-10.1); CREATININE 0.6 mg/dL (0.55-1.3); POTASSIUM 3.8 mmol/L (3.5-5.1)
[2019-03-02] MEDS: traMADol HCL 50 MG TABLET PO PRN ×2 (09:33→18:17)
[2019-03-02] MEDS: LIDOCAINE 5% TOPICAL PATCH TP SCH (09:36)
[2019-03-02] MEDS: HYDROCORTISONE 2.5% LOTION - 1 BOTTLE TP SCH ×2 (09:40→22:58)
--- NOTE | 2019-03-02 09:44 | PN ---
Progress Note, Physician - Current Medication List Current Medications: Active Medications Acetaminophen (Tylenol -) 650 mg PO Q6H PRN PRN Reason: PAIN OR FEVER Albuterol Sulfate (Ventolin Hfa Inhaler -) 1 - 2 puff IH Q4H PRN PRN Reason: SHORT OF BREATH/WHEEZING Hydrocortisone (Hytone 2.5% Lotion -) 1 applic TP BID [facility] Last Admin: 03/02/19 09:40 Dose: 1 applic Lidocaine (Lidoderm Patch -) 1 patch TP DAILY [facility] Last Admin: 03/02/19 09:36 Dose: 1 patch Miscellaneous (Lidoderm Patch Removal) 1 each MC DAILY@2200 [facility] Last Admin: 03/01/19 21:50 Dose: 1 each Ondansetron HCl (Zofran Injection) 4 mg IVPUSH Q4H PRN PRN Reason: NAUSEA AND/OR VOMITING Tramadol HCl (Ultram -) 50 mg PO Q8H PRN PRN Reason: PAIN LEVEL 7 - 10 Last Admin: 03/02/19 09:33 Dose: 50 mg - Objective Vital Signs: Vital Signs Temperature 99.4 F 03/02/19 06:00 Pulse Rate 85 03/02/19 06:00 Respiratory Rate 20 03/02/19 06:00 Blood Pressure 141/88 03/02/19 06:00 O2 Sat by Pulse Oximetry (%) 98 03/01/19 09:00 Cardiovascular: Yes: Regular Rate and Rhythm Respiratory: Yes: Regular, CTA Bilaterally Gastrointestinal: Yes: Normal Bowel Sounds, Soft. No: Tenderness Musculoskeletal: Yes: Back Pain, Muscle Pain Labs: CBC, BMP 03/02/19 07:06 03/02/19 07:06 Assessment/Plan - Problems (1) Abdominal pain Assessment/Plan: Ultrasound completed. Waiting for report ct scan GI consult noted pt refuses colooscopy Code(s): R10.9 - UNSPECIFIED ABDOMINAL PAIN Qualifiers: Abdominal location: right upper quadrant Qualified Code(s): R10.11 - Right upper quadrant pain (2) Alcohol dependence Assessment/Plan: -Alcohol and Serum -Thiamine and Folic Acid labs -Order drug screen Code(s): F10.20 - ALCOHOL DEPENDENCE, UNCOMPLICATED (3) COPD (chronic obstructive pulmonary disease) Assessment/Plan: Continue Albuterol Sulfate Code(s): J44.9 - CHRONIC OBSTRUCTIVE PULMONARY DISEASE, UNSPECIFIED Qualifiers: COPD type: unspecified COPD Qualified Code(s): J44.9 - Chronic obstructive pulmonary disease, unspecified (4) Hyponatremia Assessment/Plan: -Recheck BMP -Seizure Precautions -Fall Precautions Code(s): E87.1 - HYPO-OSMOLALITY AND HYPONATREMIA (5) Back pain Assessment/Plan: Lidoderm Patch xrays pt Code(s): M54.9 - DORSALGIA, UNSPECIFIED
--- NOTE | 2019-03-02 13:11 | PN.GI ---
GI Progress Note Subjective: GI NOte: Back pain unchanged. Lumbar X rays unremarkable. No GI complaints - Objective Vital Signs: Vital Signs Temperature 99.4 F 03/02/19 10:00 Pulse Rate 69 03/02/19 10:00 Respiratory Rate 18 03/02/19 10:00 Blood Pressure 130/74 03/02/19 10:00 O2 Sat by Pulse Oximetry (%) 96 03/02/19 09:00 Constitutional: Calm ...Auscultate: Yes: Normoactive Bowel Sounds ...Palpate: Yes: Soft, Other (nontender) Labs: CBC, BMP 03/02/19 07:06 03/02/19 07:06 Assessment/Plan Impression: - I believe that Salazar's back pain is related musculoskeletal - Fatty liver reflects alcoholic injury - Nontender bilateral inguinal hernias - Sigmoid diverticulitis in 10/27 - Hemorrhoidal bleeding Plan: - I again advised Salazar to quit alcohol and smoking - NO GI objections to discharge Problem List - Problems (1) Back pain Code(s): M54.9 - DORSALGIA, UNSPECIFIED (2) Hyponatremia Code(s): E87.1 - HYPO-OSMOLALITY AND HYPONATREMIA (3) Alcohol use disorder Code(s): [id number] - (4) Alcoholic liver disease Code(s): K70.9 - ALCOHOLIC LIVER DISEASE, UNSPECIFIED (5) COPD (chronic obstructive pulmonary disease) Code(s): J44.9 - CHRONIC OBSTRUCTIVE PULMONARY DISEASE, UNSPECIFIED Qualifiers: COPD type: unspecified COPD Qualified Code(s): J44.9 - Chronic obstructive pulmonary disease, unspecified (6) Folliculitis Code(s): L73.9 - FOLLICULAR DISORDER, UNSPECIFIED (7) Inguinal hernia recurrent bilateral Code(s): K40.21 - BILATERAL INGUINAL HERNIA, W/O OBST OR GANGRENE, RECURRENT (8) Schizophrenia Code(s): F20.9 - SCHIZOPHRENIA, UNSPECIFIED
[2019-03-02 14:17] LABS: CALCIUM 9.2 mg/dL (8.5-10.1); CREATININE 0.8 mg/dL (0.55-1.3); POTASSIUM 3.7 mmol/L (3.5-5.1)
[2019-03-02] MEDS ORDERED: SODIUM CHLORIDE 1,000 ML IV SCH (15:00)
[2019-03-02] MEDS ORDERED: SODIUM CHLORIDE 1 GM TABLET PO ONE (16:53)
--- NOTE | 2019-03-02 16:57 | PN ---
Progress Note, Physician History of Present Illness: Pt seen and examined at bedside. He is not compliant with free water restriction. - Current Medication List Current Medications: Active Medications Acetaminophen (Tylenol -) 650 mg PO Q6H PRN PRN Reason: PAIN OR FEVER Last Admin: 03/02/19 15:43 Dose: 650 mg Albuterol Sulfate (Ventolin Hfa Inhaler -) 1 - 2 puff IH Q4H PRN PRN Reason: SHORT OF BREATH/WHEEZING Hydrocortisone (Hytone 2.5% Lotion -) 1 applic TP BID [facility] Last Admin: 03/02/19 09:40 Dose: 1 applic Sodium Chloride (Normal Saline -) 1,000 mls @ 100 mls/hr IV ASDIR [facility] Last Admin: 03/02/19 15:54 Dose: 100 mls/hr Lidocaine (Lidoderm Patch -) 1 patch TP DAILY [facility] Last Admin: 03/02/19 09:36 Dose: 1 patch Miscellaneous (Lidoderm Patch Removal) 1 each MC DAILY@2200 [facility] Last Admin: 03/01/19 21:50 Dose: 1 each Sodium Chloride (Sodium Chloride Tablet -) 1 gm PO BID [facility] Tramadol HCl (Ultram -) 50 mg PO Q8H PRN PRN Reason: PAIN LEVEL 7 - 10 Last Admin: 03/02/19 09:33 Dose: 50 mg - Objective Vital Signs: Vital Signs Temperature 99.4 F 03/02/19 10:00 Pulse Rate 69 03/02/19 10:00 Respiratory Rate 18 03/02/19 10:00 Blood Pressure 130/74 03/02/19 10:00 O2 Sat by Pulse Oximetry (%) 96 03/02/19 09:00 Constitutional: Yes: Calm Eyes: Yes: Conjunctiva Clear HENT: Yes: Atraumatic Neck: Yes: Supple Cardiovascular: Yes: S1, S2 Respiratory: Yes: CTA Bilaterally Gastrointestinal: Yes: Normal Bowel Sounds, Soft Genitourinary: Yes: WNL Musculoskeletal: Yes: WNL Edema: No Integumentary: Yes: WNL Neurological: Yes: Oriented Psychiatric: Yes: Oriented Labs: CBC, BMP 03/02/19 07:06 03/02/19 13:22 Problem List - Problems (1) Hyponatremia Code(s): E87.1 - HYPO-OSMOLALITY AND HYPONATREMIA Assessment/Plan Current Medications Generic Name Dose Route Start Last Admin Trade Name Freq PRN Reason Stop Dose Admin Acetaminophen 650 mg 02/28/19 10:54 03/02/19 15:43 Tylenol - PO 650 mg Q6H PRN Administration PAIN OR FEVER Albuterol Sulfate 1 - 2 puff 02/28/19 00:06 Ventolin Hfa Inhaler - IH Q4H PRN SHORT OF BREATH/WHEEZING Hydrocortisone 1 applic 02/28/19 22:00 03/02/19 09:40 Hytone 2.5% Lotion - TP 1 applic BID [facility] Administration Sodium Chloride 1,000 mls @ 100 mls/hr 03/02/19 15:00 03/02/19 15:54 Normal Saline - IV 100 mls/hr ASDIR [facility] Administration Lidocaine 1 patch 03/01/19 10:00 03/02/19 09:36 Lidoderm Patch - TP 1 patch DAILY [facility] Administration Miscellaneous 1 each 03/01/19 22:00 03/01/19 21:50 Lidoderm Patch Removal MC 1 each DAILY@2200 [facility] Administration Sodium Chloride 1 gm 03/02/19 22:00 Sodium Chloride Tablet - PO BID [facility] Tramadol HCl 50 mg 02/28/19 10:54 03/02/19 09:33 Ultram - PO 50 mg Q8H PRN Administration PAIN LEVEL 7 - 10 Impression 1. hyponatremia - chronic 2. diverticulosis 3. etoh abuse 4. anemia 5. copd 6. microscopic hematuria Plan - restrict free water, pt drank over 2 liters of water yesterday along with other beverages and says he did not eat much - encourage PO intake - discussed etoh abuse - can add salt tab - monitor labs
[2019-03-02 20:28] LABS: BLOOD UREA NITROGEN 7.4 mg/dL (7-18); CALCIUM 8.8 mg/dL (8.5-10.1); CREATININE 0.7 mg/dL (0.55-1.3)
[2019-03-02] MEDS: LIDOCAINE PATCH REMOVAL MC SCH (22:57)
[2019-03-02] MEDS: SODIUM CHLORIDE 1 GM TABLET PO SCH (22:58)
--- NOTE | 2019-03-03 08:49 | DS ---
Physical Examination Vital Signs: Vital Signs Temperature 98.4 F 03/03/19 05:50 Pulse Rate 55 L 03/03/19 05:50 Respiratory Rate 20 03/03/19 05:50 Blood Pressure 141/66 03/03/19 05:50 O2 Sat by Pulse Oximetry (%) 96 03/02/19 21:00 Labs: CBC, BMP 03/02/19 07:06 03/02/19 19:30 Discharge Summary Reason For Visit: HYPONATREMIA Current Active Problems Back pain (Acute) Hyponatremia (Acute) Schizophrenia (Acute) Hospital Course: Problems (1) Abdominal pain Assessment/Plan: Ultrasound completed. FATTY LIVER GI consult noted pt refuses colooscopy Code(s): R10.9 - UNSPECIFIED ABDOMINAL PAIN Qualifiers: Abdominal location: right upper quadrant Qualified Code(s): R10.11 - Right upper quadrant pain (2) Alcohol dependence Assessment/Plan: -Alcohol and Serum -Thiamine and Folic Acid labs -Order drug screen Code(s): F10.20 - ALCOHOL DEPENDENCE, UNCOMPLICATED (3) COPD (chronic obstructive pulmonary disease) Assessment/Plan: Continue Albuterol Sulfate Code(s): J44.9 - CHRONIC OBSTRUCTIVE PULMONARY DISEASE, UNSPECIFIED Qualifiers: COPD type: unspecified COPD Qualified Code(s): J44.9 - Chronic obstructive pulmonary disease, unspecified (4) Hyponatremia Assessment/Plan: -Recheck BMP -Seizure Precautions -Fall Precautions -NACL TABS Code(s): E87.1 - HYPO-OSMOLALITY AND HYPONATREMIA (5) Back pain Assessment/Plan: Lidoderm Patch xrays NOTED pt Code(s): M54.9 - DORSALGIA, UNSPECIFIED DC PLANNING AND FOLLOW UP WITH PCP Condition: Fair - Instructions Disposition: HOME - Home Medications Comprehensive Discharge Medication List: Ambulatory Orders Albuterol Sulfate [Proair Hfa] 1 - 2 inh IH Q4HWA PRN 02/27/19 Acetaminophen [Tylenol .Regular Strength -] 650 mg PO Q6H PRN tablet 03/03/19 Hydrocortisone 2.5% Lotion [Hytone 2.5% Lotion -] 1 applic TP BID #1 bottle Lidocaine 5% Patch [Lidoderm -] 1 patch TP DAILY #15 patch 03/03/19 Sodium Chloride Tablet - 1 gm PO BID #60 tablet 03/03/19
[2019-03-03] MEDS: LIDOCAINE 5% TOPICAL PATCH TP SCH (09:06)
[2019-03-03] MEDS: SODIUM CHLORIDE 1 GM TABLET PO SCH (09:06)
[2019-03-03] MEDS: traMADol HCL 50 MG TABLET PO PRN (09:06)
[2019-03-03] MEDS: HYDROCORTISONE 2.5% LOTION - 1 BOTTLE TP SCH (09:08)
[2019-03-03 10:18] LABS: BLOOD UREA NITROGEN 3.5 mg/dL (7-18); CALCIUM 8.7 mg/dL (8.5-10.1); CREATININE 0.7 mg/dL (0.55-1.3); POTASSIUM 3.6 mmol/L (3.5-5.1)
--- NOTE | 2019-03-03 12:16 | PN ---
Progress Note, Physician History of Present Illness: Pt seen and examined at bedside. He is awake and alert. He denies shortness of breath. He is drinking less water. - Current Medication List Current Medications: Active Medications Acetaminophen (Tylenol -) 650 mg PO Q6H PRN PRN Reason: PAIN OR FEVER Last Admin: 03/02/19 15:43 Dose: 650 mg Albuterol Sulfate (Ventolin Hfa Inhaler -) 1 - 2 puff IH Q4H PRN PRN Reason: SHORT OF BREATH/WHEEZING Hydrocortisone (Hytone 2.5% Lotion -) 1 applic TP BID [facility] Last Admin: 03/03/19 09:08 Dose: 1 applic Lidocaine (Lidoderm Patch -) 1 patch TP DAILY [facility] Last Admin: 03/03/19 09:06 Dose: 1 patch Miscellaneous (Lidoderm Patch Removal) 1 each MC DAILY@2200 [facility] Last Admin: 03/02/19 22:57 Dose: 1 each Sodium Chloride (Sodium Chloride Tablet -) 1 gm PO BID [facility] Last Admin: 03/03/19 09:06 Dose: 1 gm - Objective Vital Signs: Vital Signs Temperature 98.4 F 03/03/19 05:50 Pulse Rate 55 L 03/03/19 05:50 Respiratory Rate 20 03/03/19 05:50 Blood Pressure 141/66 03/03/19 05:50 O2 Sat by Pulse Oximetry (%) 96 03/02/19 21:00 Constitutional: Yes: Calm Eyes: Yes: Conjunctiva Clear HENT: Yes: Atraumatic Neck: Yes: Supple Cardiovascular: Yes: S1, S2 Respiratory: Yes: WNL Gastrointestinal: Yes: WNL Genitourinary: Yes: WNL Musculoskeletal: Yes: WNL Edema: No Neurological: Yes: Oriented Psychiatric: Yes: Oriented Labs: CBC, BMP 03/02/19 07:06 03/03/19 09:30 Problem List - Problems (1) Hyponatremia Code(s): E87.1 - HYPO-OSMOLALITY AND HYPONATREMIA Assessment/Plan Current Medications Generic Name Dose Route Start Last Admin Trade Name Freq PRN Reason Stop Dose Admin Acetaminophen 650 mg 02/28/19 10:54 03/02/19 15:43 Tylenol - PO 650 mg Q6H PRN Administration PAIN OR FEVER Albuterol Sulfate 1 - 2 puff 02/28/19 00:06 Ventolin Hfa Inhaler - IH Q4H PRN SHORT OF BREATH/WHEEZING Hydrocortisone 1 applic 02/28/19 22:00 03/03/19 09:08 Hytone 2.5% Lotion - TP 1 applic BID [facility] Administration Lidocaine 1 patch 03/01/19 10:00 03/03/19 09:06 Lidoderm Patch - TP 1 patch DAILY [facility] Administration Miscellaneous 1 each 03/01/19 22:00 03/02/19 22:57 Lidoderm Patch Removal MC 1 each DAILY@2200 [facility] Administration Sodium Chloride 1 gm 03/02/19 22:00 03/03/19 09:06 Sodium Chloride Tablet - PO 1 gm BID [facility] Administration Impression 1. hyponatremia - chronic 2. diverticulosis 3. etoh abuse 4. anemia 5. copd 6. microscopic hematuria Plan - sodium is improved - discussed fluid intake - discussed etoh intake and abuse - hyponatremia likely dilutional - cont salt tab
[2019-03-03 12:18] VITALS: BP 168/76; PULSE 62; TEMP 98.8
--- NOTE | 2019-03-17 11:19 | PN ---
Progress Note (short form) - Note Progress Note: ADDENDUM TO DIAGNOSIS: PLEASE ADD MODERATE MALNUTRITION Problem List - Problems (1) Back pain Code(s): M54.9 - DORSALGIA, UNSPECIFIED (2) Hyponatremia Code(s): E87.1 - HYPO-OSMOLALITY AND HYPONATREMIA (3) Alcohol use disorder Code(s): [id number] - (4) Alcoholic liver disease Code(s): K70.9 - ALCOHOLIC LIVER DISEASE, UNSPECIFIED (5) Folliculitis Code(s): L73.9 - FOLLICULAR DISORDER, UNSPECIFIED
== END 2019-03-03 13:59 | disposition home or self-care (01) | DRG 425 ==
LOC: JER 15:22 → JERFT 15:22 → JERBED 21:25 → J6S 23:43
PROVIDERS: ADMIT Family Medicine; ATTEND Family Medicine
DX: E87.1 Hypo-osmolality and hyponatremia (principal); E44.0 Moderate protein-calorie malnutrition; K70.0 Alcoholic fatty liver; J44.9 Chronic obstructive pulmonary disease, unspecified; F10.20 Alcohol dependence, uncomplicated; D64.9 Anemia, unspecified; K57.30 Diverticulosis of large intestine without perforation or abscess without bleeding; G89.29 Other chronic pain; M54.9 Dorsalgia, unspecified; F17.210 Nicotine dependence, cigarettes, uncomplicated; R21 Rash and other nonspecific skin eruption; R31.0 Gross hematuria; K40.21 Bilateral inguinal hernia, without obstruction or gangrene, recurrent; K64.9 Unspecified hemorrhoids; Z91.19 Patient's noncompliance with other medical treatment and regimen
CPT/HCPCS: 36415; 71046-TC-FY; 72070-TC-FY; 72100-TC-FY; 74177-TC; 76705-TC; 80048; 80053; 80307; 81003; 82746; 83690; 83735; 83930; 83935; 84100; 84300; 84484; 85025; 85027; 87086; 93005; 93010; 99282-25; J0131; J7030

== ENCOUNTER 2019-03-24 22:12 | Emergency (ER) | payer OTHER ==
[2019-03-24 22:19] VITALS: TEMP 98.3; BMI 18.5
--- NOTE | 2019-03-25 00:17 | PDOC ---
Attending Attestation - Resident Resident Name: Sun Barragan - ED Attending Attestation I have performed the following: I have examined & evaluated the patient, The case was reviewed & discussed with the resident, I agree w/resident's findings & plan - HPI HPI: 03/25/19 04:16 53-year-old male with multiple complaints including cough and intermittent shortness of breath and abdominal pain. - Physicial Exam PE: 03/25/19 04:16 agree with resident exam - Medical Decision Making 03/25/19 04:16 53-year-old male with multiple complaints CT scan of the abdomen and pelvis showed no significant acute abnormalities Labs reveal a hyponatremia at 128 Patient was advised to take sodium tablets which she states he did not fill Patient now endorses to staff that he is homeless Plan to give IV fluid normal saline 1 L bolus and repeat sodium level prior to discharge Otherwise patient will be advised to follow-up with primary care
--- NOTE | 2019-03-25 00:46 | PDOC ---
History of Present Illness - General Chief Complaint: Pain Stated Complaint: ABDOMINAL PAIN Time Seen by Provider: 03/25/19 00:15 - History of Present Illness Initial Comments: Salazar Alvarez is a 53yo man with a PMH of ETOH abuse, COPD, anemia, hyponatremia, fatty liver and diverticulitis who presents reporting one month of abdominal pain, diarrhea, BRBPR and general malaise. He states that he has had the symptoms since he was admitted to the hospital last month. None of the symptoms have changed recently, but he felt that he needed to be evaluated. He says that he has not been able to follow up with Dr Ma nor with GI, and he was not able to picker / packer his discharge medications. He says that he tried to call Dr Ma's office regarding the medications but was told that he should make an appointment, which he did not feel he should have to do. Currently, he reports that he has LLQ pain as well as frequent diarrhea with red blood. He noticed the blood mostly on the toilet tissue but has also seen some mixed with his stool. He denies any vomiting, upper abdominal pain, PO intolerance, fever/ chills, or dysuria. He does note an increased cough c/w his COPD symptoms but no new sputum production. He additionally notes that a rash covering his BLE and torso inferior to the waist, present for months, has become more red over the past few weeks but does not itch or hurt. Past History - Past Medical History Allergies/Adverse Reactions: Allergies Allergy/AdvReac Type Severity Reaction Status Date / Time aspirin Allergy Unknown Verified 03/24/19 22:19 phenobarbital Allergy Unknown Verified 03/24/19 22:19 Home Medications: Ambulatory Orders Unobtainable 03/25/19 Anemia: Yes COPD: Yes GI Disorders: Yes (colitis, enlarged liver) - Surgical History Abdominal Surgery: Yes (hernia bilat) - Immunization History TDAP Vaccination: Yes Immunization Up to Date: Yes - Suicide/Smoking/Psychosocial Hx Smoking History: Current every day smoker Have you smoked in the past 12 months: No Number of Cigarettes Smoked Daily: 6 Information on smoking cessation initiated: Yes 'Breaking Loose' booklet given: 11/02/18 Hx Alcohol Use: Yes (3 beers a day) Drug/Substance Use Hx: No Substance Use Type: Alcohol Hx Substance Use Treatment: No Review of Systems - Review of Systems Comments:: General: No fevers, no chills, no weight or appetite change, + malaise HEENT: No changes in vision, no changes in hearing, no congestion, no sore throat CV: No chest pain, no palpitations, no LE edema Pulm: No SOB, + cough, no wheezing GI: No nausea or vomiting,+ diarrhea, + abdominal pain, +BRBPR : No frequency, no urgency, no dysuria Musc: No back pain, no joint swelling, no recent injury Skin: + rash, no lesions, no erythema Endo: No excessive thirst, no heat/cold intolerance Heme: No unusual bruising or bleeding, no swollen glands Neuro: No syncope, no numbness/tingling, no focal weakness Vasc: No claudication Psych: No recent change in mood, no SI or HI *Physical Exam - Vital Signs Last Vital Signs Temp Pulse Resp BP Pulse Ox 98.3 F 83 18 124/73 97 03/24/19 22:17 03/24/19 22:17 03/24/19 22:17 03/24/19 22:17 03/24/19 22:17 - Physical Exam Comments: General: Comfortable, no acute distress HEENT: PERRL, EOMI, MMM, voice normal, normal neck ROM, no LAD Cards: RRR, no murmur appreciated Pulm: Comfortable on room air, clear to auscultation bilaterally. Dry cough Abd: Soft, nondistended. Moderate lower abdominal TTP Rectal: Normal tone, no blood noted, no perianal lesions Ext: Atraumatic. No LE edema. ROM intact Vasc: Extremities WWP Skin: Red, scaly, patchy rash over entire skin distal to waist. No flaking, no bleeding. Appears rough, raised. Neuro: A&Ox3, CN grossly intact, normal speech, motor/sensory grossly intact and symmetric Psych: Mood appropriate to situation ED Treatment Course - LABORATORY CBC & Chemistry Diagram: 03/25/19 00:49 03/25/19 05:55 - RADIOLOGY Radiology Studies Ordered: Category Date Time Status ABDOMEN & PELVIS CT WITH CONTR [CT] Stat CT Scan 03/25/19 00:32 Ordered CHEST PA & LAT [RAD] Stat Radiology 03/25/19 00:32 Ordered Medical Decision Making - Medical Decision Making 03/25/19 00:46 Salazar Alvarez is a 53yo man with a PMH of ETOH abuse, COPD, anemia, hyponatremia, fatty liver and diverticulitis who presents reporting one month of abdominal pain, diarrhea, BRBPR and general malaise. He also reports increased cough and worsening lower body rash, though denies fever or chills. He states that he has not followed up since a hospitalization last month and was unable to take his medications. - Possible diverticulitis v colitis, lower GI bleed v hemorrhoids - CBC, CMP, FOBT, lactate, mag, phos, UA. HIV due to extensive rash - CT abd/pelvis - CXR 03/25/19 03:34 - Labs reviewed. Notable for hyponatremia to 129, similar to when pt was discharged following his admission last month - CXR similar to previous from February. No acute abnormalities appreciated. - CT abd/pelvis reviewed, radiology report completed. Suggests possible gastroenteritis but no concerning findings. No colitis, no diverticulitis - Will update pt with results 03/25/19 03:51 - Still has cough; will give nebs and reassess - 1L NS ordered due to hyponatremia 03/25/19 05:48 - IVF completed, will recheck BMP 03/25/19 06:18 - Na improved to 135 - Will d/c home with PMD follow up. No additional acute intervention needed as hyponatremia was the only abnormality noted on his workup - Will give contact info for GI follow up - Discussed home care, f/u, return precautions w/ Mr Alvarez. Advised him to picker / packer his previously prescribed sodium tablets and follow w/ Dr Ma. He states understanding. Discussed with Dr Kim. Sun Barragan PGY2 *DC/Admit/Observation/Transfer Diagnosis at time of Disposition: Abdominal pain Qualifiers: Abdominal location: lower abdomen, unspecified Qualified Code(s): R10.30 - Lower abdominal pain, unspecified - Discharge Dispostion Disposition: HOME Condition at time of disposition: Stable Decision to Admit order: No - Referrals Referrals: Trace Rosas MD [Staff Physician] - He Kam DO [Staff Physician] - Memo Ma MD [Staff Physician] - Didi Shafer MD [Staff Physician] - - Patient Instructions Printed Discharge Instructions: DI for Abdominal Pain-Adult Additional Instructions: Discharge Instructions: You were seen in the ED for abdominal pain and report of rectal bleeding. You had blood tests which showed low sodium but were other noriega normal. Your stool was tested, and no blood was found. You had a CT scan that did not show any concerning changes in your abdomen. Home Care and Follow Up: - Continue to take all of your regular medications as prescribed - Per records, you were prescribed salt tablets after your recent admission. Please make sure you pick these up from the pharmacy as you indicated that you never got them - Make an appointment to see a GI doctor within the next week for follow up. You have been given contact information for Dr Rosas or Dr Kam. - You have been given contact information for a branch rental manager, Dr Shafer, for follow up of your rash. Make an appointment within the next 1-2 weeks - Please see your regular doctor as soon as possible for management of your general health and evaluation of your abdominal pain. - Post Discharge Activity
[2019-03-25 01:02] LABS: BASO % 0.9 % (0-2.0); EOS % 2.8 % (0-4.5); HEMATOCRIT 40.2 % (35.4-49); HEMOGLOBIN 13.7 GM/dL (11.7-16.9); MCH 32.1 pg (25.7-33.7); MEAN CELL VOLUME 94.5 fl (80-96); MEAN PLT VOLUME 7.1 fl (7.5-11.1); MONO % 11.8 % (3.8-10.2); NEUT % 51.5 % (42.8-82.8); PLATELET COUNT 263 K/MM3 (134-434); RBC 4.25 M/mm3 (4.00-5.60); RDW 12.8 % (11.9-15.9); WHITE BLOOD COUNT 9.2 K/mm3 (4.0-10.0)
[2019-03-25 01:32] LABS: BILIRUBIN,TOTAL 1.2 mg/dL (0.2-1); BLOOD UREA NITROGEN 5.3 mg/dL (7-18); CALCIUM 9.1 mg/dL (8.5-10.1); CREATININE 0.7 mg/dL (0.55-1.3); MAGNESIUM 2.6 mg/dL (1.8-2.4); POTASSIUM 3.9 mmol/L (3.5-5.1); TOT PROT 7.3 g/dl (6.4-8.2)
[2019-03-25 01:35] LABS: N-TERMINAL BNP 56.9 pg/ml (5-125); PHOSPHOROUS 4.8 mg/dL (2.5-4.9)
[2019-03-25 03:49] VITALS: BP 125/78; PULSE 96
[2019-03-25] MEDS ORDERED: SODIUM CHLORIDE 0.9% 500 ML INFUS.BAG IV ONE (03:51)
[2019-03-25] MEDS ORDERED: ALBUTEROL SO4 2.5/IPRATROPIUM 0.5 INH SOL 3 ML VIAL.NEB. NEB ONE ×2 (03:51)
[2019-03-25 06:27] LABS: CALCIUM 8.1 mg/dL (8.5-10.1); CREATININE 0.5 mg/dL (0.55-1.3); POTASSIUM 4.1 mmol/L (3.5-5.1)
== END 2019-03-25 07:14 | disposition home or self-care (01) ==
LOC: JER 22:12
PROC: 3E0337Z Introduction of Electrolytic and Water Balance Substance into Peripheral Vein, Percutaneous Approach (ICD-10-PCS; principal; 2019-03-24)
PROC: 3E0F7GC Introduction of Other Therapeutic Substance into Respiratory Tract, Via Natural or Artificial Opening (ICD-10-PCS; 2019-03-24)
DX: E87.1 Hypo-osmolality and hyponatremia (principal); R10.30 Lower abdominal pain, unspecified; J44.9 Chronic obstructive pulmonary disease, unspecified; K76.0 Fatty (change of) liver, not elsewhere classified; F17.210 Nicotine dependence, cigarettes, uncomplicated
CPT/HCPCS: 36415; 71046-TC-FY; 74177-TC; 80048; 80053; 82140; 82272; 83605; 83735; 83880; 84100; 85025; 87389; 99284-25

== ENCOUNTER 2019-08-27 00:19 | Emergency (ER) | payer OTHER ==
[2019-08-27] MEDS ORDERED: ALBUTEROL SO4 2.5/IPRATROPIUM 0.5 INH SOL 3 ML VIAL.NEB. NEB ONE ×2 (00:30→00:52)
[2019-08-27 00:36] VITALS: TEMP 97.6; BMI 18.8
[2019-08-27 00:55] LABS: BASO % 0.8 % (0-2.0); EOS % 2.2 % (0-4.5); HEMATOCRIT 41.2 % (35.4-49); HEMOGLOBIN 13.9 GM/dL (11.7-16.9); LYMPH % 37.5 % (8-40); MCH 31.2 pg (25.7-33.7); MCHC 33.7 g/dl (32.0-35.9); MEAN CELL VOLUME 92.6 fl (80-96); MEAN PLT VOLUME 6.9 fl (7.5-11.1); MONO % 12.3 % (3.8-10.2); NEUT % 47.2 % (42.8-82.8); PLATELET COUNT 336 K/MM3 (134-434); RBC 4.45 M/mm3 (4.00-5.60); RDW 12.9 % (11.9-15.9); WHITE BLOOD COUNT 8.6 K/mm3 (4.0-10.0)
--- NOTE | 2019-08-27 00:55 | PDOC ---
History of Present Illness - General Chief Complaint: Shortness of Breath Stated Complaint: DIFFICULTY BREATHING Time Seen by Provider: 08/27/19 00:50 History Source: Patient Exam Limitations: No Limitations - History of Present Illness Initial Comments: 08/27/19 00:53 54y M with PMH of COPD, ETOH abuse, Anemia, Hyponatremia, Fatty liver, Diverticulitis BIBA for SOB. Patient states that he lives out of his van and the cold is exacerbating his symptoms. He says he has an inhaler and has tried but says it is not working. He endorses subjective fevers, chills and nightsweats. Also endorses cough productive of white-yellow sputum. Denies chest pain, abdominal pain, new back pain, leg swelling, history of HIV or hepatitis. PMD: [facility] PMH: see hpi Meds: inhalers Social: smokes 1ppd, drinks 8 beers daily Past History - Past Medical History Allergies/Adverse Reactions: Allergies Allergy/AdvReac Type Severity Reaction Status Date / Time aspirin Allergy Unknown Verified 08/27/19 00:34 phenobarbital Allergy Unknown Verified 08/27/19 00:34 Home Medications: Ambulatory Orders Azithromycin 250 mg PO DAILY #4 tablet 08/27/19 Methylprednisolone [Medrol Dose Nir] 4 mg PO ASDIR #21 tablet 08/27/19 Anemia: Yes COPD: Yes GI Disorders: Yes (colitis, enlarged liver) - Surgical History Abdominal Surgery: Yes (hernia bilat) - Immunization History TDAP Vaccination: Yes Immunization Up to Date: Yes - Psycho Social/Smoking Cessation Hx Smoking History: Unknown if ever smoked Have you smoked in the past 12 months: No Number of Cigarettes Smoked Daily: 6 Information on smoking cessation initiated: No 'Breaking Loose' booklet given: 11/02/18 Hx Alcohol Use: No Drug/Substance Use Hx: No Substance Use Type: Alcohol Hx Substance Use Treatment: No Review of Systems - Review of Systems Constitutional: No: Chills, Fever HEENTM: No: Symptoms Reported Respiratory: Yes: See HPI Cardiac (ROS): No: Symptoms Reported ABD/GI: No: Symptoms Reported : No: Symptoms Reported Musculoskeletal: No: Symptoms Reported Integumentary: No: Symptoms Reported Neurological: No: Symptoms reported *Physical Exam - Vital Signs Last Vital Signs Temp Pulse Resp BP Pulse Ox 97.6 F 96 H 22 H 168/96 96 08/27/19 00:34 08/27/19 00:34 08/27/19 00:34 08/27/19 00:34 08/27/19 00:34 - Physical Exam General Appearance: Yes: Appropriately Dressed, Thin. No: Apparent Distress HEENT: positive: EOMI, MOR. negative: Tonsillar Exudate, Thrush Neck: positive: Trachea midline, Supple. negative: Lymphadenopathy (R), Lymphadenopathy (L) Respiratory/Chest: positive: Wheezing. negative: Chest Tender, Respiratory Distress, Accessory Muscle Use, Crackles, Rales, Rhonchi, Stridor Cardiovascular: positive: Regular Rhythm, Regular Rate, S1, S2. negative: Edema , JVD, Murmur Vascular Pulses: Dorsalis-Pedis (R): 2+, Doralis-Pedis (L): 2+ Gastrointestinal/Abdominal: positive: Normal Bowel Sounds, Soft. negative: Tender Musculoskeletal: negative: CVA Tenderness Extremity: positive: Normal Capillary Refill. negative: Swelling, Calf Tenderness, Erythema Integumentary: positive: Normal Color, Dry, Warm, Other (dry, flaky skin on abdomen and back. pustules. ) Neurologic: positive: pharmaceutical scientist II-XII NML intact, Fully Oriented, Alert, Normal Mood/ Affect, Normal Response, Motor Strength 01/10 ED Treatment Course - LABORATORY CBC & Chemistry Diagram: 08/27/19 00:48 08/27/19 00:48 - RADIOLOGY Radiology Studies Ordered: Category Date Time Status CHEST PA & LAT [RAD] Stat Radiology 08/27/19 00:30 Ordered Medical Decision Making - Medical Decision Making 08/27/19 05:08 54y M with PMH of COPD presenting to eD with sob and cough. stating his inhalers are not working. patient is currently living out of his van. vitals wnl pe: patient is coughing, does not appear dyspneic, not tachypneic. saturating well on RA. ddx includes but not limited to copd exacerbation, pna, ptx, acs, pe, mi, pleurisy. likely exacerbation due to the cold. will order basic labs and cardiac labs, ekg, cxr duonebs, solumedrol. labs show hyponatremia (baseline) however will give fluids. cxr shows atelectasis? in lower lung morales which have been noted on previous xrays. patient is afebrile, low suspicion for pna. 08/27/19 05:11 patient feels well enough to go home. will dc in the AM given patient does not have a home. will give dose of azitrhomycin here and give rx for the rest and rx for solumedrol. given return precautions. Discharge - Discharge Information Problems reviewed: No Clinical Impression/Diagnosis: Cough, SOB (shortness of breath) COPD (chronic obstructive pulmonary disease) Qualifiers: COPD type: unspecified COPD Qualified Code(s): J44.9 - Chronic obstructive pulmonary disease, unspecified Condition: Good Disposition: HOME - Additional Discharge Information Prescriptions: Azithromycin 250 mg PO DAILY #4 tablet Methylprednisolone [Medrol Dose Nir] 4 mg PO ASDIR #21 tablet - Follow up/Referral Referrals: Shahriar Light MD [Primary Care Provider] - - Patient Discharge Instructions Patient Printed Discharge Instructions: DI for Chronic Obstructive Pulmonary Disease Additional Instructions: You were seen in the emergency room today for cough and shortness of breath. This is likely from the COPD. Two prescriptions were sent to your pharmacy, take as directed. Please use your inhalers as well. Come back to the emergency room if you start having fevers, are still having difficulty breathing, have chest pain or if any new or concerning symptom develops. Thank you - Post Discharge Activity
[2019-08-27 01:08] LABS: VENOUS PC02 45.7 mmHg (38-52); VENOUS PH 7.37 (7.31-7.41); VENOUS PO2 51.9 mmHg (28-48)
[2019-08-27 01:16] LABS: INR 1.08 (0.83-1.09); PROTHROMBIN TIME (PATIENT) 12.7 SEC (9.7-13.0)
[2019-08-27 01:32] LABS: ALBUMIN 3.7 g/dl (3.4-5.0); ALK PHOS 96 U/L (45-117); ANION GAP 12 MMOL/L (8-16); BILIRUBIN,TOTAL 0.4 mg/dL (0.2-1); CALCIUM 8.7 mg/dL (8.5-10.1); CHLORIDE 89 mmol/L (98-107); CO2 26 mmol/L (21-32); CREATININE 0.6 mg/dL (0.55-1.3); GLUCOSE,RANDOM 67 mg/dL (74-106); POTASSIUM 4.3 mmol/L (3.5-5.1); SGOT/AST 32 U/L (15-37); SGPT/ALT 26 U/L (13-61); SODIUM 126 mmol/L (136-145); TOT PROT 7.2 g/dl (6.4-8.2)
--- NOTE | 2019-08-27 01:34 | PDOC ---
Attending Attestation - Resident Resident Name: NoniYola - ED Attending Attestation I have performed the following: I have examined & evaluated the patient, The case was reviewed & discussed with the resident, I agree w/resident's findings & plan, Exceptions are as noted - HPI HPI: 08/27/19 05:39 See resident HPI - Physicial Exam PE: 08/27/19 05:39 Agree with exam as documented by resident - Medical Decision Making 08/27/19 05:39 ?copd exacerbation, eval for pna f/u labs, cxr symptomatic tx dispo per clinical course Patient well appearing, subjectively improved No clear consolidation on cxr DC home
[2019-08-27] MEDS ORDERED: SODIUM CHLORIDE 1,000 ML IV STA (02:00)
[2019-08-27] MEDS ORDERED: methylPREDNISolone NA SUCC 125 MG/2 ML VIAL IVPUSH ONE (02:00)
[2019-08-27] MEDS ORDERED: methylPREDNISolone NA SUCC 125 MG/2 ML VIAL ONE (02:05)
[2019-08-27] MEDS ORDERED: AZITHROMYCIN 250 MG TABLET PO ONE (04:59)
[2019-08-27] MEDS ORDERED: AZITHROMYCIN 250 MG TABLET ONE (05:23)
[2019-08-27 06:55] VITALS: BP 143/83; PULSE 112
--- NOTE | 2019-08-27 10:48 | EKG ---
Test Reason : Blood Pressure : / mmHG Vent. Rate : 088 BPM Atrial Rate : 088 BPM P-R Int : 118 ms QRS Dur : 076 ms QT Int : 372 ms P-R-T Axes : 047 077 072 degrees QTc Int : 450 ms POOR DATA QUALITY, INTERPRETATION MAY BE ADVERSELY AFFECTED NORMAL SINUS RHYTHM NORMAL ECG WHEN COMPARED WITH ECG OF 27-FEB-2019 20:52, FUSION COMPLEXES ARE NO LONGER PRESENT Confirmed by SHAMEKA HENRIQUEZ MD ([id number]) on 08/27/2019 10:48:43 AM Referred By: Confirmed By:SHAMEKA HENRIQUEZ MD
== END 2019-08-27 08:00 | disposition home or self-care (01) ==
LOC: JER 00:19
PROC: 3E0F7GC Introduction of Other Therapeutic Substance into Respiratory Tract, Via Natural or Artificial Opening (ICD-10-PCS; principal; 2019-08-27)
PROC: 3E0333Z Introduction of Anti-inflammatory into Peripheral Vein, Percutaneous Approach (ICD-10-PCS; 2019-08-27)
DX: J44.9 Chronic obstructive pulmonary disease, unspecified (principal); E87.1 Hypo-osmolality and hyponatremia; D64.9 Anemia, unspecified; Z87.19 Personal history of other diseases of the digestive system; Z59.0 Homelessness; Z88.8 Allergy status to other drugs, medicaments and biological substances; Z88.6 Allergy status to analgesic agent
CPT/HCPCS: 36415; 71046-TC-FY; 80053; 82803; 84484; 85025; 85610; 93005; 93010; 99284-25; J7030

== ENCOUNTER 2019-09-30 00:36 | Inpatient (IN) | payer OTHER ==
[2019-09-30] MEDS ORDERED: CLINDAMYCIN 600MG PREMIX IVPB 600 MG/50 ML BAG IVPB ONE ×2 (03:35→03:42)
--- NOTE | 2019-09-30 03:52 | PDOC ---
Attending Attestation - Resident Resident Name: MedranoPapito - ED Attending Attestation I have performed the following: I have examined & evaluated the patient, The case was reviewed & discussed with the resident, I agree w/resident's findings & plan - HPI HPI: 09/30/19 03:49 see resident hpi - Physicial Exam PE: 09/30/19 03:49 agree with resident exam - Medical Decision Making 09/30/19 03:50 54-year-old male, undomiciled with swelling to the right groin Exam reveals localized swelling and fluctuance consistent with abscess Plan for I&D Clindamycin 600 mg IV Labs including a blood and wound culture Patient is disheveled and unkempt He is currently intermittently sleeping in a van and has poor outpatient follow- up Will admit for wound care and social work consult
[2019-09-30] MEDS ORDERED: LIDOCAINE 1%/EPI 1:100000 (20 ML MULTI DOSE VIAL) ONE (04:48)
[2019-09-30] MEDS ORDERED: LIDOCAINE 1%/EPI 1:100000 (20 ML MULTI DOSE VIAL) INF ONE (04:48)
[2019-09-30 05:10] LABS: BASO % 0.8 % (0-2.0); EOS % 0.9 % (0-4.5); HEMATOCRIT 40.7 % (35.4-49); HEMOGLOBIN 13.9 GM/dL (11.7-16.9); LYMPH % 16.9 % (8-40); MCH 31.3 pg (25.7-33.7); MCHC 34.2 g/dl (32.0-35.9); MEAN CELL VOLUME 91.4 fl (80-96); MEAN PLT VOLUME 8.1 fl (7.5-11.1); MONO % 10.6 % (3.8-10.2); NEUT % 70.8 % (42.8-82.8); PLATELET COUNT 328 K/MM3 (134-434); RBC 4.45 M/mm3 (4.00-5.60); WHITE BLOOD COUNT 12.6 K/mm3 (4.0-10.0)
[2019-09-30 05:31] LABS: INR 1.03 (0.83-1.09); PROTHROMBIN TIME (PATIENT) 12.2 SEC (9.7-13.0)
[2019-09-30 05:33] LABS: ACTIVATED PTT 36.5 SECONDS (25.2-36.5)
--- NOTE | 2019-09-30 05:37 | PDOC ---
History of Present Illness - General Chief Complaint: Abscess Boil Stated Complaint: PAIN,ABSCESS Time Seen by Provider: 09/30/19 03:46 - History of Present Illness Initial Comments: 54M PMH COPD undomiciled presenting with 4 days of right inguinal pain and swelling. Endorses subjective fever. Denies n/v, po intolerance, cp/sob ( baseline sob), diarrhea, dysuria. Pt has longstanding inguinal hernia. Undomiciled occasionally living in friend's van or living room with poor medical follow up. Past History - Past Medical History Allergies/Adverse Reactions: Allergies Allergy/AdvReac Type Severity Reaction Status Date / Time aspirin Allergy Unknown Verified 09/30/19 02:38 phenobarbital Allergy Unknown Verified 09/30/19 02:38 Home Medications: Ambulatory Orders NK [No Known Home Medication] 09/30/19 Anemia: Yes COPD: Yes GI Disorders: Yes (colitis, enlarged liver) - Surgical History Abdominal Surgery: Yes (hernia bilat) - Immunization History TDAP Vaccination: Yes Immunization Up to Date: Yes - Psycho Social/Smoking Cessation Hx Smoking History: Never smoked Have you smoked in the past 12 months: No Number of Cigarettes Smoked Daily: 6 'Breaking Loose' booklet given: 11/02/18 Hx Alcohol Use: No Drug/Substance Use Hx: No Substance Use Type: Alcohol Hx Substance Use Treatment: No Review of Systems - Review of Systems Comments:: CONSTITUTIONAL: Endorses F / C HEENT: Denies headache, lightheadedness, dizziness, changes in vision / hearing , diplopia, blurry vision, sore throat, rhinorrhea RESP: Denies SOB (states he has baseline sob), cough, orthopnea, CUMMINGS CARD: Denies chest pain, palpitations GI: Denies N / V / D, abdominal pain, bloody stool, inability to tolerate PO : Denies dysuria. Endorses right inguinal pain/swelling. SKIN: Denies rashes *Physical Exam - Vital Signs Last Vital Signs Temp Pulse Resp BP Pulse Ox 98.1 F 103 H 18 159/89 98 09/30/19 00:40 09/30/19 00:40 09/30/19 00:40 09/30/19 00:40 09/30/19 00:40 - Physical Exam GEN: Unkempt, NAD, comfortable. AAOx3. HEENT: NC/AT. No facial asymmetry. Moist mucous membranes. Normal voice. Supple neck w/ FROM. CV: S1/S2, RRR, no m/r/g LUNG: CTAB, no wheezes, crackles, rales, rhonchi. GI: Soft, ndnt, +BS, no guarding, no rebound. : approx 2x2cm fluctuant erythematous area overlying the right inguinal region ; +tenderness. There is a hernia medial to the affected region. MSK: No obvious deformities of all extremities. SKIN: Warm, dry, ?blackheads diffusely on the abdomen? PSYCH: Normal mood and affect. NEURO: Moving all extremities well. Ambulates w/ normal gait. ED Treatment Course - LABORATORY CBC & Chemistry Diagram: 10/04/19 12:30 10/04/19 12:30 - ADDITIONAL ORDERS Additional order review: Laboratory Results 09/30/19 04:10 PT with INR 12.20 INR 1.03 PTT (Actin FS) 36.5 09/30/19 04:10 RBC 4.45 MCV 91.4 MCHC 34.2 RDW 13.0 MPV 8.1 D Neutrophils % 70.8 D Lymphocytes % 16.9 D Monocytes % 10.6 H Eosinophils % 0.9 Basophils % 0.8 - Medications Given in the ED: ED Medications Discontinued Medications Generic Name Dose Route Start Last Admin Trade Name Freq PRN Reason Stop Dose Admin Clindamycin Phosphate 600 mg in 50 mls @ 100 mls/hr 09/30/19 03:35 09/30/19 04:15 Cleocin 600 Mg Premix Ivpb - IVPB 09/30/19 04:04 100 mls/hr ONCE ONE Administration Lidocaine/Epinephrine 20 ml 09/30/19 04:48 09/30/19 05:00 Xylocaine 1%-Epi 1:100,000 INF 09/30/19 04:49 5 ml ONCE ONE Administration Medical Decision Making - Medical Decision Making 09/30/19 05:36 54 y/o undomiciled M PMH COPD c/o right inguinal pain and swelling. There is an erythematous fluctuant area on the lateral aspect of the inguinal region and a medial hernia (present only w/ cough). DDx - abscess, cellulitis - CBC, CMP - IND - abx - admit IND - expressed a large amount of pus, wound cx sent 09/30/19 05:52 - labs reviewed elevated WBC 09/30/19 06:46 EKG HR 112 LA 122 QRS 74 QTc 442 Sinus tachycardia pt drinks 6 pack of beer a day feels nervous, no AVH, no tongue fasciculation, no tactile hallucination librium 50 ETOH level 09/30/19 07:00 will sign out to AM team Discharge - Discharge Information Problems reviewed: Yes Clinical Impression/Diagnosis: Abscess, Alcohol use disorder COPD (chronic obstructive pulmonary disease) Qualifiers: COPD type: unspecified COPD Qualified Code(s): J44.9 - Chronic obstructive pulmonary disease, unspecified Condition: Fair - Follow up/Referral - Patient Discharge Instructions - Post Discharge Activity
[2019-09-30 05:48] LABS: ALBUMIN 3.9 g/dl (3.4-5.0); BILIRUBIN,TOTAL 1.2 mg/dL (0.2-1); CALCIUM 9.3 mg/dL (8.5-10.1); CREATININE 0.6 mg/dL (0.55-1.3); POTASSIUM 4.2 mmol/L (3.5-5.1); TOT PROT 7.4 g/dl (6.4-8.2)
[2019-09-30] MEDS ORDERED: chlordiazePOXIDE HCL 25 MG CAPSULE PO ONE (06:46)
[2019-09-30] MEDS ORDERED: chlordiazePOXIDE HCL 25 MG CAPSULE ONE (07:04)
[2019-09-30] MEDS ORDERED: SODIUM CHLORIDE 0.9% 500 ML INFUS.BAG IV ONE (07:31)
--- NOTE | 2019-09-30 07:31 | PDOC ---
*Physical Exam - Vital Signs Last Vital Signs Temp Pulse Resp BP Pulse Ox 99.6 F 122 H 18 127/70 95 09/30/19 06:21 09/30/19 06:21 09/30/19 06:21 09/30/19 06:21 09/30/19 06:21 ED Treatment Course - LABORATORY CBC & Chemistry Diagram: 09/30/19 04:10 09/30/19 04:10 - ADDITIONAL ORDERS Additional order review: Laboratory Results 09/30/19 09/30/19 09/30/19 04:10 04:10 04:10 PT with INR 12.20 INR 1.03 PTT (Actin FS) 36.5 Sodium 126 L Potassium 4.2 Chloride 87 L Carbon Dioxide 28 Anion Gap 11 BUN 4.0 L Creatinine 0.6 Est GFR (CKD-EPI)AfAm 131.19 Est GFR (CKD-EPI)NonAf 113.19 Random Glucose 72 L Calcium 9.3 Total Bilirubin 1.2 H AST 29 ALT 28 Alkaline Phosphatase 123 H Total Protein 7.4 Albumin 3.9 Blood Type A POSITIVE Antibody Screen Negative 09/30/19 04:10 RBC 4.45 MCV 91.4 MCHC 34.2 RDW 13.0 MPV 8.1 D Neutrophils % 70.8 D Lymphocytes % 16.9 D Monocytes % 10.6 H Eosinophils % 0.9 Basophils % 0.8 - Medications Given in the ED: ED Medications Discontinued Medications Generic Name Dose Route Start Last Admin Trade Name Freq PRN Reason Stop Dose Admin Chlordiazepoxide HCl 50 mg 09/30/19 06:46 09/30/19 07:11 Librium - PO 09/30/19 06:47 50 mg ONCE ONE Administration Clindamycin Phosphate 600 mg in 50 mls @ 100 mls/hr 09/30/19 03:35 09/30/19 04:15 Cleocin 600 Mg Premix Ivpb - IVPB 09/30/19 04:04 100 mls/hr ONCE ONE Administration Lidocaine/Epinephrine 20 ml 09/30/19 04:48 09/30/19 05:00 Xylocaine 1%-Epi 1:100,000 INF 09/30/19 04:49 5 ml ONCE ONE Administration Medical Decision Making - Medical Decision Making 09/30/19 07:26 Salazar Alvarez is a 54M with COPD and smokes 1 pack every 3 days, homeless with poor follow-up presenting with R inguinal abscess. Abscess has been drained, has WBC elevation to 12.6. Getting IV Clindamycin. Requires admission for sepsis 2/2 cellulitis/abscess and poor ability to get follow-up care. Also drinks reported 6-pack beer each day. Given 50mg Librium, may have vomited it up. Sodium 126 and tachycardic to 122, giving 1L NS. On exam, has bilateral lower lung wheezing consistent with COPD, giving Duonebs. Still nauseated, giving Zofran for nausea. Paged Dr. Mccain's office for admit. 09/30/19 09:03 Spoke to WELDING PROCESS SPECIALIST Melinda Marlow, kendrick for admission under Dr. Mccain. Requests f/u VS after 1L bolus, will re-check. 09/30/19 10:22 HR improved to 110 after 500cc. Discharge - Discharge Information Problems reviewed: Yes Clinical Impression/Diagnosis: Abscess, Alcohol use disorder COPD (chronic obstructive pulmonary disease) Qualifiers: COPD type: unspecified COPD Qualified Code(s): J44.9 - Chronic obstructive pulmonary disease, unspecified Condition: Fair - Admission Yes - Follow up/Referral - Patient Discharge Instructions - Post Discharge Activity
[2019-09-30] MEDS ORDERED: ALBUTEROL SO4 2.5/IPRATROPIUM 0.5 INH SOL 3 ML VIAL.NEB. NEB ONE ×2 (07:53→07:57)
[2019-09-30] MEDS ORDERED: ONDANSETRON 4 MG/2 ML VIAL IVPUSH ONE (07:53)
[2019-09-30] MEDS ORDERED: ONDANSETRON 4 MG/2 ML VIAL ONE (07:57)
--- NOTE | 2019-09-30 09:56 | HP ---
Admitting History and Physical - Primary Care Physician PCP: pearl - Admission Chief Complaint: Pain and swelling right groin History of Present Illness: Patient is 54 y/o male with past medical history of COPD and Alcohol Dependence. He presented to ER with complaints of pain and swelling to R groin for 4 days. He is not sure how this began but pain and swelling increased and came to ER. Patient is also complaining of SOB due to his history of COPD. He is currently undomiciled and is not taking medication for his COPD. He does admit to alcohol dependence and drinks 6 beers daily. He also states having rectal bleeding with his BM 2 days ago. Denies chest pain, palpitations, or dizziness. History Source: Patient Limitations to Obtaining History: No Limitations - Past Medical History Pulmonary: Yes: COPD Gastrointestinal: Yes: Diverticulitis (10/27) Hepatobiliary: Yes: Other (alcoholic liver disease) Renal/: Yes: Other (hyponatremia) Heme/Onc: Yes: Anemia Infectious Disease: Yes: Other (chronic folliculitis/fungal skin disease?) Psych: Yes: Addictions (alcohol and cigarettes), Schizophrenia Musculoskeletal: Yes: Chronic low back pain Endocrine: Yes: Other (Hyponatremia) Dermatology: Yes: Other (chronic pruritic scaly rash lower abdomen, inguinal area and lower extremities ) - Past Surgical History Past Surgical History: Yes: Hernia Repair (right inguinal hernia repair). 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 History of Recent Travel: No Home Medications - Allergies Allergies/Adverse Reactions: Allergies Allergy/AdvReac Type Severity Reaction Status Date / Time aspirin Allergy Unknown Verified 09/30/19 02:38 phenobarbital Allergy Unknown Verified 09/30/19 02:38 - Home Medications Home Medications: Ambulatory Orders NK [No Known Home Medication] 09/30/19 Review of Systems - Review of Systems Constitutional: reports: Chills, Fever Eyes: reports: No Symptoms HENT: reports: No Symptoms Neck: reports: No Symptoms Cardiovascular: reports: No Symptoms Respiratory: reports: Cough Gastrointestinal: reports: Rectal Bleeding Genitourinary: reports: No Symptoms Breasts: reports: No Symptoms Reported Musculoskeletal: reports: No Symptoms Integumentary: reports: Erythema (r groin) Neurological: reports: No Symptoms Endocrine: reports: No Symptoms Hematology/Lymphatic: reports: No Symptoms Psychiatric: reports: No Symptoms Physical Examination Vital Signs: Vital Signs Temperature 98.6 F 09/30/19 09:36 Pulse Rate 109 H 09/30/19 09:36 Respiratory Rate 19 09/30/19 09:36 Blood Pressure 115/56 L 09/30/19 09:36 O2 Sat by Pulse Oximetry (%) 99 09/30/19 09:36 Constitutional: Yes: No Distress, Calm, Poor Hygeine Eyes: Yes: Conjunctiva Clear HENT: Yes: Atraumatic Neck: Yes: Supple Cardiovascular: Yes: Tachycardia Respiratory: Yes: Regular, Cough, On Nasal O2, Wheezes Gastrointestinal: Yes: Normal Bowel Sounds, Soft Musculoskeletal: Yes: WNL Extremities: Yes: WNL Edema: Yes Edema: LLE: Trace, RLE: Trace Integumentary: Yes: Erythema (right groin), Other (r groon tender to palpation and edematous) Neurological: Yes: Alert, Oriented Psychiatric: Yes: Alert, Oriented Labs: CBC, BMP 09/30/19 04:10 09/30/19 04:10 Problem List - Problems (1) Rectal bleeding Assessment/Plan: -GI consult -stool OB -Hg 13.9 Code(s): K62.5 - HEMORRHAGE OF ANUS AND RECTUM (2) Abscess Assessment/Plan: -ID consult -leukocytosis -afebrile -received Clindamycin 600mg IVPB x 1 in ER -s/p I&D in ER -wound culture Code(s): L02.91 - CUTANEOUS ABSCESS, UNSPECIFIED (3) Alcohol use disorder Assessment/Plan: -Dr Pastor consult -ativan prn for withdrawal/anxiety -MVI -Folic acid -Thiamine -fall and seizure precaution Code(s): MHV2631 - (4) COPD (chronic obstructive pulmonary disease) Assessment/Plan: -Pulmonary consult -bronchodilators -O2 via NC -keep SpO2 >90% -CXR shows emphysematous bullous changes in the lungs Code(s): J44.9 - CHRONIC OBSTRUCTIVE PULMONARY DISEASE, UNSPECIFIED Qualifiers: COPD type: unspecified COPD Qualified Code(s): J44.9 - Chronic obstructive pulmonary disease, unspecified
[2019-09-30] MEDS ORDERED: ALBUTEROL SO4 0.083% IH SOL 2.5 MG/3 ML VIAL.NEB. NEB PRN (10:20)
[2019-09-30 11:03] VITALS: BMI 20.7
[2019-09-30] MEDS: HEPARIN NA (PORCINE) 5,000 UNITS/ML 1ML VIAL SQ SCH ×2 (11:05→21:38)
[2019-09-30] MEDS: NICOTINE 7 MG/24 HOURS TOPICAL PATCH TD SCH (11:06)
--- NOTE | 2019-09-30 12:40 | CONSULT ---
Consult Detox [facility] Reason for Current Admission/Consult: Alcohol Dependence Referred by:: Dr. Ferrer - History History of Present Illness: 54-year-old male, undomiciled was admitted to hospital due to infected inguinal abscess/ cellulitis. Patient's abscess was incised and drained. He is currently on IV antibiotics. He has COPE and is nocompliant with meds. He admits to drinking 6 beers daily. When asked how he could have gotten such an infection he could not give a good reason. - History Source History Provided By: Patient Limitations to Obtaining History: No Limitations - Alcohol/Substance Use Hx Alcohol Use: Yes (6 beers daily) Hx Substance Use: No Hx Substance Use Treatment: Yes (but many years ago) - Past Medical History Pulmonary: Yes: COPD Gastrointestinal: Yes: Diverticulitis (10/27) Hepatobiliary: Yes: Other (alcoholic liver disease) Renal/: Yes: Other (hyponatremia) Infectious Disease: Yes: Other (chronic folliculitis/fungal skin disease?) Psych: Yes: Addictions (alcohol and cigarettes), Schizophrenia Musculoskeletal: Yes: Chronic low back pain Endocrine: Yes: Other (Hyponatremia) Dermatology: Yes: Other (chronic pruritic scaly rash lower abdomen, inguinal area and lower extremities ) Additional Medical History: Hyponatremia and prone to hypoglycemia. Bilateral inguinal hernias - Past Surgical History Past Surgical History: Yes: Hernia Repair (right inguinal hernia repair). No: Colonoscopy - Significant Medical Findings: Patient examined in bed and seems very comfortable with no particular complaints. He has a slight cough that sounds somewhat productive. Cor: S1, S2, no abnormal heart sounds Lungs: Prolonged expiratory phase, clear but distant sounds. Some occasional expiratory wheeze. Abd: Seen I/D area with bandage. Ext: normal pulses, FROM, no edema CIWA Score - CIWA Score Nausea/Vomitin-No Nausea/No Vomiting Muscle Tremors: None Anxiety: 0-No Anxiety, at Ease Agitation: 0-Normal Activity Paroxysmal Sweats: No Perspiration Orientation: 1-Uncertain about Date Tacttile Disturbances: 0-None Auditory Disturbances: 0-None Visual Disturbances: 4-Moderate Hallucinations Headache: 0-None Present CIWA-Ar Total Score: 5 Assessment Plan - Plan Plan: 1. Alcohol Dependence: uncomplicated Patient offered rehab services upon being discharged but is refusing [facility] rehab services at this time. If he changes his mind, he can be referred to rehab at [facility] where he can avail himself of group therapy in a structured setting and social media project manager can be arranged for him for housing or manager long term care placement. He has poor judgment and insight into his substance use disorder and would benefit from both CD services as well as other support that would be available to him if he chooses to enter rehab. 2. Abscess/Cellulitis: Complete IV antibiotics, transfer to oral antibiotics and when stable refer to outpatient care. Another possibility is for him to attend outpatient MAT treatment at [facility] if he so chooses. Dr. Aviles - Medication Detox Regimen/Protocol: Not Applicable
--- NOTE | 2019-09-30 14:57 | CON.PULM ---
Consult Consult Specialty:: PULM/CCM Referred by:: YORDY Reason for Consultation:: SOB - History of Present Illness Chief Complaint: SOB History of Present Illness: 54 M, COPD due to active smoking (1 pack per 2 to 3 days) and Alcohol Dependence. He was admitted via the ER with swelling of the Right groin for 4 days. He also reports increased SOB and scant but thick sputum production. No travel history or sick contacts. He does not take any meds for his COPD as he is undomiciled. No hemoptysis or night sweats. Denies any exposure to TB. There is no history that would be consistent with OSAS. CXR: Emphysema / minimal bibasilar scarring versus atelectasis - History Source History Provided By: Patient Limitations to Obtaining History: No Limitations - Past Medical History Pulmonary: Yes: Bronchitis, COPD, Pneumonia. No: Asthma, Cancer, O2 Dependent, Previously Intubated, Pulmonary Embolus, Pulmonary Fibrosis, Sleep Apnea Gastrointestinal: Yes: Diverticulitis (10/27) Hepatobiliary: Yes: Other (alcoholic liver disease) Renal/: Yes: Other (hyponatremia) Infectious Disease: Yes: Other (chronic folliculitis/fungal skin disease?) Psych: Yes: Addictions (alcohol and cigarettes), Schizophrenia Musculoskeletal: Yes: Chronic low back pain Endocrine: Yes: Other (Hyponatremia) Dermatology: Yes: Other (chronic pruritic scaly rash lower abdomen, inguinal area and lower extremities ) Additional Medical History: Hyponatremia and prone to hypoglycemia. Bilateral inguinal hernias - Past Surgical History Past Surgical History: Yes: Hernia Repair (right inguinal hernia repair). 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 denies: Chills, Fever, Night Sweats, Unintentional Wgt. Loss Eyes: reports: No Symptoms HENT: reports: No Symptoms Neck: reports: No Symptoms Cardiovascular: reports: Shortness of Breath. denies: Chest Pain, Edema, Palpitations Respiratory: reports: Cough, SOB. denies: Hemoptysis, Orthopnea, PND, Snoring, SOB on Exertion, Wheezing Gastrointestinal: reports: No Symptoms Genitourinary: reports: Testicular Pain, Testicular Swelling Breasts: reports: No Symptoms Reported Musculoskeletal: reports: No Symptoms Integumentary: reports: No Symptoms Neurological: reports: No Symptoms Endocrine: reports: No Symptoms Hematology/Lymphatic: reports: No Symptoms Psychiatric: reports: No Symptoms Physical Exam Vital Sings: Vital Signs Temperature 99.8 F H 09/30/19 14:33 Pulse Rate 105 H 09/30/19 14:33 Respiratory Rate 19 09/30/19 14:33 Blood Pressure 107/58 L 09/30/19 14:33 O2 Sat by Pulse Oximetry (%) 95 09/30/19 11:03 Constitutional: Yes: No Distress, Thin Eyes: Yes: Conjunctiva Clear, EOM Intact HENT: Yes: Atraumatic, Normocephalic Neck: Yes: Supple, Trachea Midline Cardiovascular: Yes: Regular Rate and Rhythm Respiratory: Yes: Cough, Rhonchi, SOB on Exertion, Tachypnea, Wheezes. No: Accessory Muscle Use, Rales, Stridor ...Inspection: Yes: WNL ...Clubbing: No Gastrointestinal: Yes: Normal Bowel Sounds, Soft Renal/: Yes: WNL Musculoskeletal: Yes: WNL Extremities: Yes: WNL Edema: No Peripheral Pulses WNL: Yes Integumentary: Yes: WNL Neurological: Yes: WNL, Alert, Oriented ...Motor Strength: WNL Psychiatric: Yes: WNL, Alert, Oriented Labs: CBC, BMP 09/30/19 04:10 09/30/19 04:10 Imaging - Results Chest X-ray: Report Reviewed, Image Reviewed Problem List - Problems (1) Atelectasis of both lungs Code(s): J98.11 - ATELECTASIS (2) Alcohol use disorder Code(s): CSR7680 - (3) COPD (chronic obstructive pulmonary disease) Code(s): J44.9 - CHRONIC OBSTRUCTIVE PULMONARY DISEASE, UNSPECIFIED Qualifiers: COPD type: unspecified COPD Qualified Code(s): J44.9 - Chronic obstructive pulmonary disease, unspecified (4) Alcohol dependence Code(s): F10.20 - ALCOHOL DEPENDENCE, UNCOMPLICATED (5) Cough Code(s): R05 - COUGH (6) SOB (shortness of breath) Code(s): R06.02 - SHORTNESS OF BREATH (7) Schizophrenia Code(s): F20.9 - SCHIZOPHRENIA, UNSPECIFIED Assessment/Plan Prednisone 40mg OD BD TX No smoking counseled O2 as needed Detox consult was called VTE prophylaxis PFTs once stable as an outpatient Workup of testicular pain per primary Will follow Thank you. Dr Tamayo
--- NOTE | 2019-09-30 15:10 | EKG ---
Test Reason : Blood Pressure : / mmHG Vent. Rate : 112 BPM Atrial Rate : 112 BPM P-R Int : 122 ms QRS Dur : 074 ms QT Int : 324 ms P-R-T Axes : 065 067 066 degrees QTc Int : 442 ms POOR DATA QUALITY, INTERPRETATION MAY BE ADVERSELY AFFECTED SINUS TACHYCARDIA OTHERWISE NORMAL ECG WHEN COMPARED WITH ECG OF 27-AUG-2019 01:33, NO SIGNIFICANT CHANGE WAS FOUND Confirmed by LISA KOENIG, ARELY ([id number]) on 09/30/2019 3:10:07 PM Referred By: Confirmed By:ARELY GONZALEZ MD
--- NOTE | 2019-09-30 15:43 | PN ---
Progress Note (short form) - Note Progress Note: ID CONSULT DICTATED SOFT TISSUE ABSCESS/ CELLULITIS R INGUINAL AREA R/O SEPSIS SECONDARY TO SKIN SOURCE ? HX INGUINAL HERNIA REPAIR AN INFANT AWAIT C/S EMPIRIC VANCO/UNASYN WOULD OBTAIN CT ABDO/PELVIS TO SEE IF THERE IS MESH PRESENT
[2019-09-30] MEDS ORDERED: AMPICILLIN NA/SULBACTAM NA 1.5 GM VIAL ONE (15:45)
[2019-09-30] MEDS ORDERED: SODIUM CHLORIDE 100 ML IVPB ONE (15:45)
[2019-09-30] MEDS: AMPICILLIN NA/SULBACTAM NA 1.5 GM in SODIUM CHLORIDE 100 ML IVPB SCH ×2 (15:54→17:08)
[2019-09-30] MEDS: predniSONE 20 MG TABLET (UD) PO SCH (15:54)
--- NOTE | 2019-09-30 16:36 | CONS ---
INFECTIOUS DISEASE CONSULTATION DATE OF CONSULTATION: DATE OF DICTATION: 09/30/2019 HISTORY: A 54-year-old male evaluated for soft tissue abscess and cellulitis of the right inguinal area. History was obtained from the chart as he does not give a reliable history. He was admitted to the hospital on September 30, 2019, with a 4-day history of worsening right inguinal area soft tissue erythema, pain, and swelling. He was evaluated in the emergency room where he was noted to have a fluctuant area in the right inguinal area. Jabari pus was expressed. Incision and drainage was performed. Cultures are pending. The patient cannot give a reliable history. He cannot explain why this developed. According to the notes, he has had a history of inguinal hernia repair as an infant; however, he cannot provide any additional details. He was unaware of whether or not any mesh was present in the right inguinal area or whether in fact inguinal repair was done on the right side. He denies any genitourinary symptoms. No dysuria or hematuria. No urethral discharge. No penile or genital lesions. Denies history of sexually transmitted diseases. States he tested HIV negative several months ago. In the emergency room, he was treated with clindamycin. His course has been significant for elevated white blood cell count. PAST MEDICAL HISTORY: Positive for history of diverticulitis in November 2018, in the sigmoid colon, COPD, chronic skin condition of unclear etiology, hyponatremia, alcohol abuse. PAST SURGICAL HISTORY: Status post inguinal hernia repair. Details not available. ALLERGIES: ASPIRIN and PHENOBARBITAL. MEDICATIONS: Include clindamycin. LABORATORY DATA: White count 12.6, hematocrit 40.7, platelets 328, creatinine 0.6. Sodium 126. Blood cultures and wound culture pending. PHYSICAL EXAMINATION: General: He is awake and alert. He is chronically ill appearing. Vital Signs: Temperature 99.8, blood pressure 107/56, pulse 105 regular, respirations 19 per minute. HEENT: Sclerae anicteric. Heart: Sounds S1, S2. Lungs: Clear. Abdomen: Soft. There is evidence of chronic dermatitis on the abdomen. There is an ill-defined area of erythema present in the right inguinal area with some induration. It is tender to touch. There is no expressible pus. No crepitus. Extremities: Negative for edema. IMPRESSION: 1. Soft tissue abscess/cellulitis of the right inguinal area. 2. Rule out sepsis secondary to skin source. 3. History of inguinal hernia repair. Details not available. 4. History of chronic skin condition. 5. History of chronic alcoholism. 6. Hyponatremia. PLAN: Await cultures. Empiric antibiotic coverage with vancomycin and Unasyn. There are no positive cultures on the computer for drug-resistant pathogens. Would obtain CAT scan of the abdomen and pelvis to see if there is any evidence of deeper abscess or presence of mesh in the right inguinal area. Patient declines HIV testing. SHAMEKA BRASHER M.D. [id number]
[2019-09-30] MEDS: VANCOMYCIN 1 GRAM (PRE-DOCKED) 1,000 MG/250 ML BAG IVPB SCH (17:07)
[2019-09-30 19:23] LABS: PH,URINE 6.5 (5.0-8.0); URINE APPEARANCE CLEAR; URINE BILIRUBIN NEGATIVE (NEGATIVE); URINE COLOR ORANGE; URINE GLUCOSE (UA) NEGATIVE (NEGATIVE); URINE KETONE 1+ (NEGATIVE); URINE LEUK ESTERASE NEGATIVE (NEGATIVE); URINE NITRITE NEGATIVE (NEGATIVE); URINE PROTEIN NEGATIVE (NEGATIVE)
--- NOTE | 2019-09-30 20:08 | CON.GI ---
Consult Consult Specialty:: GI Referred by:: Dr. Greyson Mccain Reason for Consultation:: Rectal bleeding - History of Present Illness Chief Complaint: Right groin pain History of Present Illness: 54M admitted for evaluation of right groin swelling and discharge. Called to evaluate for history of rectal bleeding. No rectal bleeding now. He states that this has not happened in quite some time now and it occurs intermittently when he has a bowel movement. He denies anorectal pain. He has never had a colonoscopy but states that his PMD at the [facility] gave him a referral to see a cold storage worker working out of [facility]. He currently refused the rectal exam. - History Source History Provided By: Patient, Medical Record - Past Medical History Pulmonary: Yes: Bronchitis, COPD, Pneumonia Gastrointestinal: Yes: Diverticulitis (10/27) Hepatobiliary: Yes: Other (alcoholic liver disease) Renal/: Yes: Other (hyponatremia) Infectious Disease: Yes: Other (chronic folliculitis/fungal skin disease?) Psych: Yes: Addictions (alcohol and cigarettes), Schizophrenia Musculoskeletal: Yes: Chronic low back pain Endocrine: Yes: Other (Hyponatremia) Dermatology: Yes: Other (chronic pruritic scaly rash lower abdomen, inguinal area and lower extremities ) Additional Medical History: Hyponatremia and prone to hypoglycemia. Bilateral inguinal hernias - Past Surgical History Past Surgical History: Yes: Hernia Repair (right inguinal hernia repair). 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 Mother: : 50's : COPD. 1 sister: healthy. 1 son: healthy. No clear family history of colon cancer Review of Systems - Review of Systems Respiratory: reports: Cough, SOB Gastrointestinal: reports: Rectal Bleeding (remotely), Other (Groin pain). denies: Constipation, Diarrhea, Melena, Vomiting Physical Exam-GI Vital Signs: Vital Signs Temperature 98.9 F 09/30/19 19:19 Pulse Rate 80 09/30/19 19:19 Respiratory Rate 19 09/30/19 17:00 Blood Pressure 106/60 09/30/19 19:19 O2 Sat by Pulse Oximetry (%) 95 09/30/19 17:00 Constitutional: Yes: Calm Eyes: No: Sclera Icterus Cardiovascular: Yes: Regular Rate and Rhythm Respiratory: Yes: Wheezes (bilateral exp. wheezing) Gastrointestinal Inspection: No: Scars ...Auscultate: Yes: Normoactive Bowel Sounds ...Palpate: Yes: Soft, Other (indurated right inguinal area with draining wound. Tender to palpation). No: Splenomegaly, Tenderness ...Percussion: No: Tympanitic ...Rectal Exam: Yes: Deferred (Refused by patient) Edema: No (No LE edema) Neurological: Yes: Alert Labs: CBC, BMP 09/30/19 04:10 09/30/19 04:10 INR, PTT INR 1.03 (0.83-1.09) 09/30/19 04:10 Hepatic Panel Total Bilirubin 1.2 mg/dL (0.2-1) H 09/30/19 04:10 AST 29 U/L (15-37) 09/30/19 04:10 ALT 28 U/L (13-61) 09/30/19 04:10 Alkaline Phosphatase 123 U/L (45-117) H 09/30/19 04:10 Albumin 3.9 g/dl (3.4-5.0) 09/30/19 04:10 Problem List - Problems (1) Rectal bleeding Assessment/Plan: Patient describes this as occurring remotely and currently no overt bleeding reported. Refused rectal exam. Outpatient evaluation when acute issues are resolved. Should contact the [facility] to confirm if he actually does have appointment to see a gastroenterologoist. If so, can be given instructions for follow-up as outpatient. If not can refer to office. Code(s): K62.5 - HEMORRHAGE OF ANUS AND RECTUM (2) Alcohol dependence Assessment/Plan: Advised need for complete alcohol cessation LFT's abnormal: ordered abdominal US Previous hepatitis serologies unrevealing. Also reveals he does not have immunity to hepatitis B. Will need vaccination. Avoid hepatotoxic agents Code(s): F10.20 - ALCOHOL DEPENDENCE, UNCOMPLICATED
[2019-09-30] MEDS: ALBUTEROL SO4 2.5/IPRATROPIUM 0.5 INH SOL 3 ML VIAL.NEB. NEB SCH (22:00)
[2019-10-01] MEDS ORDERED: AMPICILLIN NA/SULBACTAM NA 1.5 GM VIAL ONE ×3 (01:46→15:53)
[2019-10-01] MEDS ORDERED: SODIUM CHLORIDE 100 ML IVPB ONE ×3 (01:46→15:53)
[2019-10-01] MEDS: AMPICILLIN NA/SULBACTAM NA 1.5 GM in SODIUM CHLORIDE 100 ML IVPB SCH ×3 (01:51→17:03)
[2019-10-01] MEDS: VANCOMYCIN 1 GRAM (PRE-DOCKED) 1,000 MG/250 ML BAG IVPB SCH ×2 (04:32→15:59)
[2019-10-01] MEDS: ALBUTEROL SO4 2.5/IPRATROPIUM 0.5 INH SOL 3 ML VIAL.NEB. NEB SCH ×3 (07:25→20:51)
[2019-10-01 08:05] LABS: BASO % 0.7 % (0-2.0); EOS % 0.1 % (0-4.5); HEMATOCRIT 35.2 % (35.4-49); HEMOGLOBIN 11.9 GM/dL (11.7-16.9); LYMPH % 19.2 % (8-40); MCH 31.6 pg (25.7-33.7); MCHC 33.7 g/dl (32.0-35.9); MEAN CELL VOLUME 93.7 fl (80-96); MONO % 12.5 % (3.8-10.2); NEUT % 67.5 % (42.8-82.8); PLATELET COUNT 269 K/MM3 (134-434); RBC 3.75 M/mm3 (4.00-5.60); RDW 12.8 % (11.9-15.9); WHITE BLOOD COUNT 10.1 K/mm3 (4.0-10.0)
[2019-10-01 08:54] LABS: ALBUMIN 2.9 g/dl (3.4-5.0); BILIRUBIN,TOTAL 0.8 mg/dL (0.2-1); BLOOD UREA NITROGEN 8.5 mg/dL (7-18); CALCIUM 8.7 mg/dL (8.5-10.1); CREATININE 0.6 mg/dL (0.55-1.3); MAGNESIUM 2.4 mg/dL (1.8-2.4); PHOSPHOROUS 2.8 mg/dL (2.5-4.9); POTASSIUM 4.2 mmol/L (3.5-5.1); TOT PROT 5.8 g/dl (6.4-8.2)
--- NOTE | 2019-10-01 09:59 | PN ---
Progress Note, Physician Chief Complaint: R Inguinal Abscess ETOH Dependence History of Present Illness: Previous notes and events reviewed awake and alert NAD complain of pain to R inguinal area R inguinal abscess draining pus WBC showing downtrend afebrile - Current Medication List Current Medications: Active Medications Acetaminophen (Tylenol -) 650 mg PO Q4H PRN PRN Reason: PAIN LEVEL 1-5 Albuterol Sulfate (Ventolin 0.083% Nebulizer Soln -) 1 amp NEB Q6H PRN PRN Reason: SHORT OF BREATH/WHEEZING Albuterol/Ipratropium (Duoneb -) 1 amp NEB RTID [facility] Last Admin: 10/01/19 07:25 Dose: 1 amp Folic Acid (Folic Acid -) 1 mg PO DAILY [facility] Heparin Sodium (Porcine) (Heparin -) 5,000 unit SQ BID [facility] Last Admin: 09/30/19 21:38 Dose: 5,000 unit Vancomycin HCl (Vancomycin (Pre-Docked)) 1,000 mg in 250 mls @ 166.667 mls/hr IVPB BID@0400,1600 [facility]; Protocol Last Admin: 10/01/19 04:32 Dose: 166.667 mls/hr Ampicillin Sodium/Sulbactam (Sodium 1.5 gm/ Sodium Chloride) 100 mls @ 200 mls/ hr IVPB Q8H-IV [facility] Last Admin: 10/01/19 01:51 Dose: 200 mls/hr Lorazepam (Ativan -) 1 mg PO TID PRN PRN Reason: ANXIETY Multivitamins/Minerals/Vitamin C (Tab-A-Vit -) 1 tab PO DAILY [facility] Nicotine (Nicoderm Patch -) 7 mg TD DAILY [facility] Last Admin: 09/30/19 11:06 Dose: Not Given Prednisone (Deltasone -) 40 mg PO DAILY [facility] Last Admin: 09/30/19 15:54 Dose: 40 mg Thiamine HCl (Vitamin B1 -) 100 mg PO DAILY [facility] - Objective Vital Signs: Vital Signs Temperature 98.0 F 10/01/19 08:06 Pulse Rate 84 10/01/19 08:06 Respiratory Rate 16 10/01/19 08:06 Blood Pressure 130/51 L 10/01/19 08:06 O2 Sat by Pulse Oximetry (%) 96 09/30/19 21:00 Constitutional: Yes: No Distress, Calm Eyes: Yes: Conjunctiva Clear HENT: Yes: Atraumatic Cardiovascular: Yes: Regular Rate and Rhythm Respiratory: Yes: Regular, Wheezes Gastrointestinal: Yes: Normal Bowel Sounds, Soft Musculoskeletal: Yes: WNL Extremities: Yes: WNL Edema: Yes Edema: LLE: Trace, RLE: Trace Integumentary: Yes: Erythema, Other (abscress R inguinal area, draining pus) Wound/Incision: Yes: Dressing Dry and Intact (R inguinal area) Neurological: Yes: Alert, Oriented Psychiatric: Yes: Alert, Oriented Labs: CBC, BMP 10/01/19 07:15 10/01/19 07:15 INR, PTT INR 1.03 (0.83-1.09) 09/30/19 04:10 Problem List - Problems (1) Rectal bleeding Assessment/Plan: -GI on board -stool OB ordered -Hg 13.9 Code(s): K62.5 - HEMORRHAGE OF ANUS AND RECTUM (2) Abscess Assessment/Plan: -ID on board -leukocytosis -afebrile -Vancomycin and Unasyn -s/p I&D in ER -wound culture -BC neg -CTAP ordered to r/o evidence of deeper abscess Code(s): L02.91 - CUTANEOUS ABSCESS, UNSPECIFIED (3) Alcohol use disorder Assessment/Plan: -Dr Pastor consult -ativan prn for withdrawal/anxiety -MVI -Folic acid -Thiamine -fall and seizure precaution -Psych consult -SW consult Code(s): AXB9293 - (4) COPD (chronic obstructive pulmonary disease) Assessment/Plan: -Pulmonary on board -bronchodilators -O2 via NC -keep SpO2 >90% -CXR shows emphysematous bullous changes in the lungs -Prednsione 40mg daily Code(s): J44.9 - CHRONIC OBSTRUCTIVE PULMONARY DISEASE, UNSPECIFIED Qualifiers: COPD type: unspecified COPD Qualified Code(s): J44.9 - Chronic obstructive pulmonary disease, unspecified Assessment/Plan see problem list dvt ppx
[2019-10-01] MEDS: predniSONE 20 MG TABLET (UD) PO SCH (10:12)
[2019-10-01] MEDS: MULTIVITAMINS (DAILY MVI) TABLET (FP) PO SCH (10:13)
[2019-10-01] MEDS: FOLIC ACID 1 MG TABLET (FP) PO SCH (10:13)
[2019-10-01] MEDS: HEPARIN NA (PORCINE) 5,000 UNITS/ML 1ML VIAL SQ SCH ×2 (10:13→21:59)
[2019-10-01] MEDS: NICOTINE 7 MG/24 HOURS TOPICAL PATCH TD SCH ×2 (10:13→10:21)
[2019-10-01] MEDS: THIAMINE HCL 100 MG TABLET (FP) PO SCH (10:14)
[2019-10-01] MEDS: LORazepam 1 MG TABLET PO PRN ×2 (10:29→20:32)
--- NOTE | 2019-10-01 11:04 | CON.PSY ---
Psychiatry Consult Chief Complaint: i drink. i dont have any psych problems. - Previous Psychiatric Treatment Outpatient: None Inpatient: None - Previous Substance Abuse Treatment Outpatient: None Inpatient: One prior admission - Reason for Previous Treatment Reason for Previous Treatment: Alcohol Abuse - Current Medications Current Medications: Active Medications Acetaminophen (Tylenol -) 650 mg PO Q4H PRN PRN Reason: PAIN LEVEL 1-5 Albuterol Sulfate (Ventolin 0.083% Nebulizer Soln -) 1 amp NEB Q6H PRN PRN Reason: SHORT OF BREATH/WHEEZING Albuterol/Ipratropium (Duoneb -) 1 amp NEB RTID [facility] Last Admin: 10/01/19 07:25 Dose: 1 amp Folic Acid (Folic Acid -) 1 mg PO DAILY [facility] Last Admin: 10/01/19 10:13 Dose: 1 mg Heparin Sodium (Porcine) (Heparin -) 5,000 unit SQ BID [facility] Last Admin: 10/01/19 10:13 Dose: 5,000 unit Vancomycin HCl (Vancomycin (Pre-Docked)) 1,000 mg in 250 mls @ 166.667 mls/hr IVPB BID@0400,1600 [facility]; Protocol Last Admin: 10/01/19 04:32 Dose: 166.667 mls/hr Ampicillin Sodium/Sulbactam (Sodium 1.5 gm/ Sodium Chloride) 100 mls @ 200 mls/ hr IVPB Q8H-IV [facility] Last Admin: 10/01/19 10:04 Dose: 200 mls/hr Lorazepam (Ativan -) 1 mg PO TID PRN PRN Reason: ANXIETY Last Admin: 10/01/19 10:29 Dose: 1 mg Multivitamins/Minerals/Vitamin C (Tab-A-Vit -) 1 tab PO DAILY [facility] Last Admin: 10/01/19 10:13 Dose: 1 tab Nicotine (Nicoderm Patch -) 7 mg TD DAILY [facility] Last Admin: 10/01/19 10:21 Dose: Not Given Prednisone (Deltasone -) 40 mg PO DAILY [facility] Last Admin: 10/01/19 10:12 Dose: 40 mg Thiamine HCl (Vitamin B1 -) 100 mg PO DAILY [facility] Last Admin: 10/01/19 10:14 Dose: 100 mg - Allergies Allergies: Allergies Allergy/AdvReac Type Severity Reaction Status Date / Time aspirin Allergy Unknown Verified 01/23/20 02:38 phenobarbital Allergy Unknown Verified 09/30/19 02:38 - Current Living Status Usual Living Arrangement: Alone - Current Mental Status Evaluation Appearance: Disheveled Attitude: Guarded - Affect Affect: Constrictive Appropriateness: Appropriate to Content - Mood Mood: Euthymic - Speech/Language Expressive: Coherent - Psychomotor Activity Psychomotor Activity: Normal - Thought Process Thought Process: Intact - Thought Content Hallucinations: Absent Delusions: Absent - Self Perception Self Perception: No Impairment - Cognition Attention: Alert Orientation: Time Memory, Immediate Recall: Intact Memory, Short Term: 3/3 Memory, Remote with Promptin/3 - Concentration Serial Sevens Intact: No Simple Calculations Intact: Yes - Abstraction Proverb Interpretation: Intact Judgement: Minimally Impaired - Insight Insight: Intact - Impulse Control Impulse Control: Good Control - Suicidal Ideation Suicidal Ideation: No - Homicidal Ideation Homicidal Ideation: No Assessment/Plan 1) No acute Psych illness. Re3fer to Sub abuse service.
--- NOTE | 2019-10-01 13:00 | PN ---
Progress Note (short form) - Note Progress Note: PULMONARY IN WHEELCHAIR/GOING FOR CT ABD VSS/AFEB Constitutional: Yes: No Distress, Thin Eyes: Yes: Conjunctiva Clear, EOM Intact HENT: Yes: Atraumatic, Normocephalic Neck: Yes: Supple, Trachea Midline Cardiovascular: Yes: Regular Rate and Rhythm Respiratory: Yes: Cough, Rhonchi, SOB on Exertion, Tachypnea, Wheezes. No: Accessory Muscle Use, Rales, Stridor ...Inspection: Yes: WNL ...Clubbing: No Gastrointestinal: Yes: Normal Bowel Sounds, Soft Renal/: Yes: WNL Musculoskeletal: Yes: WNL Extremities: Yes: WNL Edema: No Peripheral Pulses WNL: Yes Integumentary: Yes: WNL Neurological: Yes: WNL, Alert, Oriented ...Motor Strength: WNL Psychiatric: Yes: WNL, Alert, Oriented Labs: REVIEWED Imaging - Results Chest X-ray: Report Reviewed, Image Reviewed Problem List - Problems (1) Atelectasis of both lungs Code(s): J98.11 - ATELECTASIS (2) Alcohol use disorder Code(s): LCU2498 - (3) COPD (chronic obstructive pulmonary disease) Code(s): J44.9 - CHRONIC OBSTRUCTIVE PULMONARY DISEASE, UNSPECIFIED Qualifiers: COPD type: unspecified COPD Qualified Code(s): J44.9 - Chronic obstructive pulmonary disease, unspecified (4) Alcohol dependence Code(s): F10.20 - ALCOHOL DEPENDENCE, UNCOMPLICATED (5) Cough Code(s): R05 - COUGH (6) SOB (shortness of breath) Code(s): R06.02 - SHORTNESS OF BREATH (7) Schizophrenia Code(s): F20.9 - SCHIZOPHRENIA, UNSPECIFIED Assessment/Plan Prednisone 40mg OD BD TX No smoking counseled O2 as needed Detox consult was called VTE prophylaxis PFTs once stable as an outpatient Will follow Germán RALPH MD
--- NOTE | 2019-10-01 16:48 | CONSULT ---
Consult Consult Specialty:: endocrine Referred by:: vicky long Reason for Consultation:: hypothyroidism - History of Present Illness Chief Complaint: weak and in pain History of Present Illness: 54 y/o male with past medical history of COPD and Alcohol Dependence. He presented with swelling to R groin . He is not sure how this began but pain and swelling increased and came to ER. Patient is also complaining of SOB due to his history of COPD. He is currently undomiciled and is not taking medication for his COPD. He does admit to alcohol dependence and drinks 6 beers daily. He denies thyroid illness,no cold intolerance,weight gain or hair loss - Past Medical History Pulmonary: Yes: Bronchitis, COPD, Pneumonia Gastrointestinal: Yes: Diverticulitis (10/27) Hepatobiliary: Yes: Other (alcoholic liver disease) Renal/: Yes: Other (hyponatremia) Infectious Disease: Yes: Other (chronic folliculitis/fungal skin disease?) Psych: Yes: Addictions (alcohol and cigarettes), Schizophrenia Musculoskeletal: Yes: Chronic low back pain Endocrine: Yes: Other (Hyponatremia) Dermatology: Yes: Other (chronic pruritic scaly rash lower abdomen, inguinal area and lower extremities ) Additional Medical History: Hyponatremia and prone to hypoglycemia. Bilateral inguinal hernias - Past Surgical History Past Surgical History: Yes: Hernia Repair (right inguinal hernia repair). 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 History of Recent Travel: No Home Medications - Allergies Allergies/Adverse Reactions: Allergies Allergy/AdvReac Type Severity Reaction Status Date / Time aspirin Allergy Unknown Verified 09/30/19 02:38 phenobarbital Allergy Unknown Verified 09/30/19 02:38 - Home Medications Home Medications: Ambulatory Orders NK [No Known Home Medication] 09/30/19 Review of Systems - Review of Systems Constitutional: reports: Lethargy Eyes: reports: No Symptoms HENT: reports: No Symptoms Neck: reports: No Symptoms Cardiovascular: reports: No Symptoms Respiratory: reports: Exercise Intolerance, SOB on Exertion Gastrointestinal: reports: No Symptoms Breasts: reports: No Symptoms Reported Musculoskeletal: reports: Joint Pain, Joint Swelling, Muscle Pain, Muscle Cramps Physical Exam Vital Signs: Vital Signs Temperature 98.8 F 10/01/19 15:14 Pulse Rate 99 H 10/01/19 15:14 Respiratory Rate 18 10/01/19 15:14 Blood Pressure 124/72 10/01/19 15:14 O2 Sat by Pulse Oximetry (%) 97 10/01/19 09:00 Constitutional: Yes: Calm Eyes: Yes: EOM Intact HENT: Yes: Normocephalic Neck: Yes: Trachea Midline Cardiovascular: Yes: Regular Rate and Rhythm Respiratory: Yes: Rhonchi, SOB Gastrointestinal: Yes: Normal Bowel Sounds ...Rectal Exam: Yes: Deferred Renal/: Yes: WNL Musculoskeletal: Yes: Muscle Pain Extremities: Yes: Delayed Capillary Refill Edema: LLE: 1+, RLE: 1+ Neurological: Yes: Alert, Oriented Labs: CBC, BMP 10/01/19 07:15 10/01/19 07:15 Problem List - Problems (1) Hypothyroidism, unspecified Code(s): E03.9 - HYPOTHYROIDISM, UNSPECIFIED (2) Abscess Code(s): L02.91 - CUTANEOUS ABSCESS, UNSPECIFIED (3) Alcohol use disorder Code(s): [id number] - (4) Atelectasis of both lungs Code(s): J98.11 - ATELECTASIS (5) COPD (chronic obstructive pulmonary disease) Code(s): J44.9 - CHRONIC OBSTRUCTIVE PULMONARY DISEASE, UNSPECIFIED Qualifiers: COPD type: unspecified COPD Qualified Code(s): J44.9 - Chronic obstructive pulmonary disease, unspecified (6) Rectal bleeding Code(s): K62.5 - HEMORRHAGE OF ANUS AND RECTUM (7) Abdominal pain Code(s): R10.9 - UNSPECIFIED ABDOMINAL PAIN Qualifiers: Abdominal location: lower abdomen, unspecified Qualified Code(s): R10.30 - Lower abdominal pain, unspecified Assessment/Plan Current Active Problems euthyroid sick vs subclinical hypothyroid illness Abscess (Acute) Alcohol use disorder (Acute) Atelectasis of both lungs (Acute) COPD (chronic obstructive pulmonary disease) (Acute) Rectal bleeding (Acute) Abnormal Lab Results 09/30/19 10/01/19 10/01/19 17:49 07:15 07:15 WBC 10.1 H RBC 3.75 L Hct 35.2 L Monocytes % 12.5 H Sodium 134 L Anion Gap 5 L AST 14 L Total Protein 5.8 L Albumin 2.9 L TSH 4.28 H D Urine Ketones 1+ H plan; ck free t4 and repeat tsh given early for subclinical will await free t4
--- NOTE | 2019-10-01 17:18 | PN ---
Progress Note, Physician History of Present Illness: AWAKE, ALERT IN BED C/O R INGUINAL PAIN AFEBRILE WBC IMPROVED BC (-) UNABLE TO LOCATE WOUND C/S CT DONE REPORT PENDING - Current Medication List Current Medications: Active Medications Acetaminophen (Tylenol -) 650 mg PO Q4H PRN PRN Reason: PAIN LEVEL 1-5 Albuterol Sulfate (Ventolin 0.083% Nebulizer Soln -) 1 amp NEB Q6H PRN PRN Reason: SHORT OF BREATH/WHEEZING Albuterol/Ipratropium (Duoneb -) 1 amp NEB RTID [facility] Last Admin: 10/01/19 14:34 Dose: 1 amp Folic Acid (Folic Acid -) 1 mg PO DAILY [facility] Last Admin: 10/01/19 10:13 Dose: 1 mg Heparin Sodium (Porcine) (Heparin -) 5,000 unit SQ BID [facility] Last Admin: 10/01/19 10:13 Dose: 5,000 unit Vancomycin HCl (Vancomycin (Pre-Docked)) 1,000 mg in 250 mls @ 166.667 mls/hr IVPB BID@0400,1600 [facility]; Protocol Last Admin: 10/01/19 15:59 Dose: 166.667 mls/hr Ampicillin Sodium/Sulbactam (Sodium 1.5 gm/ Sodium Chloride) 100 mls @ 200 mls/ hr IVPB Q8H-IV [facility] Last Admin: 10/01/19 17:03 Dose: 200 mls/hr Lorazepam (Ativan -) 1 mg PO TID PRN PRN Reason: ANXIETY Last Admin: 10/01/19 10:29 Dose: 1 mg Multivitamins/Minerals/Vitamin C (Tab-A-Vit -) 1 tab PO DAILY [facility] Last Admin: 10/01/19 10:13 Dose: 1 tab Nicotine (Nicoderm Patch -) 7 mg TD DAILY [facility] Last Admin: 10/01/19 10:21 Dose: Not Given Prednisone (Deltasone -) 40 mg PO DAILY [facility] Last Admin: 10/01/19 10:12 Dose: 40 mg Thiamine HCl (Vitamin B1 -) 100 mg PO DAILY [facility] Last Admin: 10/01/19 10:14 Dose: 100 mg - Objective Vital Signs: Vital Signs Temperature 98.8 F 10/01/19 15:14 Pulse Rate 99 H 10/01/19 15:14 Respiratory Rate 18 10/01/19 15:14 Blood Pressure 124/72 10/01/19 15:14 O2 Sat by Pulse Oximetry (%) 97 10/01/19 09:00 Constitutional: Yes: No Distress Cardiovascular: Yes: Regular Rate and Rhythm, S1, S2 Respiratory: Yes: CTA Bilaterally Gastrointestinal: Yes: Normal Bowel Sounds, Soft, Other (+ R INGUINAL TENDERNESS , ERYTHEMA. NO FLUCTUANCE. NO EXPRESSIBLE PUS) Edema: No Labs: CBC, BMP 10/01/19 07:15 10/01/19 07:15 INR, PTT INR 1.03 (0.83-1.09) 09/30/19 04:10 Assessment/Plan S/P DRAINAGE R INGUINAL SOFT TISSUE ABSCESS CELLULITIS R INGUINAL AREA CT PENDING UNABLE TO LOCATE WOUND C/S PT GIVES HX OF HERNIA SURGERY A YOUNG CHILD, NOT RECENTLY CONTINUE EMPIRIC VANCOMYCIN/ UNASYN
[2019-10-01] MEDS: guaiFENesin 200 MG/10 ML 10 ML UNIT-DOSE CUPS PO PRN (20:42)
[2019-10-02] MEDS ORDERED: AMPICILLIN NA/SULBACTAM NA 1.5 GM VIAL ONE ×4 (01:01→18:20)
[2019-10-02] MEDS ORDERED: SODIUM CHLORIDE 100 ML IVPB ONE ×4 (01:01→18:20)
[2019-10-02] MEDS: AMPICILLIN NA/SULBACTAM NA 1.5 GM in SODIUM CHLORIDE 100 ML IVPB SCH ×3 (01:15→18:28)
[2019-10-02] MEDS: VANCOMYCIN 1 GRAM (PRE-DOCKED) 1,000 MG/250 ML BAG IVPB SCH ×2 (03:58→15:51)
[2019-10-02] MEDS: guaiFENesin 200 MG/10 ML 10 ML UNIT-DOSE CUPS PO PRN (06:56)
[2019-10-02] MEDS: ALBUTEROL SO4 2.5/IPRATROPIUM 0.5 INH SOL 3 ML VIAL.NEB. NEB SCH ×3 (07:20→20:35)
[2019-10-02 07:56] LABS: HEMATOCRIT 31.9 % (35.4-49); HEMOGLOBIN 10.6 GM/dL (11.7-16.9); MCH 31.2 pg (25.7-33.7); MCHC 33.4 g/dl (32.0-35.9); MEAN CELL VOLUME 93.6 fl (80-96); MEAN PLT VOLUME 7.6 fl (7.5-11.1); PLATELET COUNT 278 K/MM3 (134-434); RBC 3.41 M/mm3 (4.00-5.60); RDW 12.6 % (11.9-15.9); WHITE BLOOD COUNT 11.1 K/mm3 (4.0-10.0)
[2019-10-02 09:04] LABS: ALBUMIN 2.9 g/dl (3.4-5.0); BILIRUBIN,TOTAL 0.5 mg/dL (0.2-1); CALCIUM 8.9 mg/dL (8.5-10.1); CREATININE 0.7 mg/dL (0.55-1.3); POTASSIUM 3.6 mmol/L (3.5-5.1); TOT PROT 5.6 g/dl (6.4-8.2)
[2019-10-02] MEDS: MULTIVITAMINS (DAILY MVI) TABLET (FP) PO SCH (10:39)
[2019-10-02] MEDS: FOLIC ACID 1 MG TABLET (FP) PO SCH (10:39)
[2019-10-02] MEDS: THIAMINE HCL 100 MG TABLET (FP) PO SCH (10:39)
[2019-10-02] MEDS: predniSONE 20 MG TABLET (UD) PO SCH (10:39)
[2019-10-02] MEDS: NICOTINE 7 MG/24 HOURS TOPICAL PATCH TD SCH ×2 (10:41→16:23)
[2019-10-02] MEDS: HEPARIN NA (PORCINE) 5,000 UNITS/ML 1ML VIAL SQ SCH ×2 (10:42→21:30)
--- NOTE | 2019-10-02 11:33 | PN ---
Progress Note, Physician Chief Complaint: AWAKE ALERT EVENTS REVIEWED POD RLQ SOFT TISSUE REMOVAL - Current Medication List Current Medications: Active Medications Acetaminophen (Tylenol -) 650 mg PO Q4H PRN PRN Reason: PAIN LEVEL 1-5 Albuterol Sulfate (Ventolin 0.083% Nebulizer Soln -) 1 amp NEB Q6H PRN PRN Reason: SHORT OF BREATH/WHEEZING Albuterol/Ipratropium (Duoneb -) 1 amp NEB RTID [facility] Last Admin: 10/02/19 07:20 Dose: 1 amp Folic Acid (Folic Acid -) 1 mg PO DAILY [facility] Last Admin: 10/02/19 10:39 Dose: 1 mg Guaifenesin (Robitussin -) 10 ml PO Q6H PRN PRN Reason: COUGH Last Admin: 10/02/19 06:56 Dose: 10 ml Heparin Sodium (Porcine) (Heparin -) 5,000 unit SQ BID [facility] Last Admin: 10/02/19 10:42 Dose: 5,000 unit Vancomycin HCl (Vancomycin (Pre-Docked)) 1,000 mg in 250 mls @ 166.667 mls/hr IVPB BID@0400,1600 [facility]; Protocol Last Admin: 10/02/19 03:58 Dose: 166.667 mls/hr Ampicillin Sodium/Sulbactam (Sodium 1.5 gm/ Sodium Chloride) 100 mls @ 200 mls/ hr IVPB Q8H-IV [facility] Last Admin: 10/02/19 10:42 Dose: 200 mls/hr Lorazepam (Ativan -) 1 mg PO TID PRN PRN Reason: ANXIETY Last Admin: 10/01/19 20:32 Dose: 1 mg Multivitamins/Minerals/Vitamin C (Tab-A-Vit -) 1 tab PO DAILY [facility] Last Admin: 10/02/19 10:39 Dose: 1 tab Nicotine (Nicoderm Patch -) 7 mg TD DAILY [facility] Last Admin: 10/02/19 10:41 Dose: 7 mg Prednisone (Deltasone -) 40 mg PO DAILY [facility] Last Admin: 10/02/19 10:39 Dose: 40 mg Thiamine HCl (Vitamin B1 -) 100 mg PO DAILY [facility] Last Admin: 10/02/19 10:39 Dose: 100 mg - Objective Vital Signs: Vital Signs Temperature 98.5 F 10/02/19 05:56 Pulse Rate 81 10/02/19 05:56 Respiratory Rate 18 10/02/19 05:56 Blood Pressure 101/56 L 10/02/19 05:56 O2 Sat by Pulse Oximetry (%) 97 10/01/19 21:00 Constitutional: Yes: No Distress Cardiovascular: Yes: Regular Rate and Rhythm Respiratory: Yes: WNL Gastrointestinal: Yes: Other (RLQ DRESSING CLEAN) Edema: No Labs: CBC, BMP 10/02/19 07:10 10/02/19 07:10 INR, PTT INR 1.03 (0.83-1.09) 09/30/19 04:10 Problem List - Problems (1) Abscess Code(s): L02.91 - CUTANEOUS ABSCESS, UNSPECIFIED (2) Alcohol use disorder Code(s): [id number] - (3) COPD (chronic obstructive pulmonary disease) Code(s): J44.9 - CHRONIC OBSTRUCTIVE PULMONARY DISEASE, UNSPECIFIED Qualifiers: COPD type: unspecified COPD Qualified Code(s): J44.9 - Chronic obstructive pulmonary disease, unspecified (4) Hypothyroidism, unspecified Code(s): E03.9 - HYPOTHYROIDISM, UNSPECIFIED (5) Alcoholic liver disease Code(s): K70.9 - ALCOHOLIC LIVER DISEASE, UNSPECIFIED (6) Inguinal hernia recurrent bilateral Code(s): K40.21 - BILATERAL INGUINAL HERNIA, W/O OBST OR GANGRENE, RECURRENT (7) Schizophrenia Code(s): F20.9 - SCHIZOPHRENIA, UNSPECIFIED Assessment/Plan IV ABX PER ID DVT PROPHYLAXIS OOB TO CHAIR ETOH ABSTINENCE PLACEMENT TO SNF
--- NOTE | 2019-10-02 12:40 | PN ---
Progress Note (short form) - Note Progress Note: continued drainage from RLQ area he had drainage performed in the ER reports he had an abscess about 3 months earlier that spontaneously drained Vital Signs Period Temp Pulse Resp BP Sys/Ballard Pulse Ox Last 24 Hr 98.2 F-99.0 F 81-99 18-18 95-124/47-72 97 cor-rrr llungs clear abd firm, nt +right inguinal hernia , +purulent drainage from incision site- area cleaned and culture sent CBC, BMP 10/02/19 07:10 10/02/19 07:10 Microbiology 09/30/19 04:10 Blood - Peripheral Venous Blood Culture - Preliminary NO GROWTH OBTAINED AFTER 48 HOURS, INCUBATION TO CONTINUE FOR 3 DAYS. 09/30/19 04:10 Blood - Peripheral Venous Blood Culture - Preliminary NO GROWTH OBTAINED AFTER 48 HOURS, INCUBATION TO CONTINUE FOR 3 DAYS. a/p right inguinal abscess inguinal hernia wound culture sent continue vanco/unasyn f/u cultures f/u vancomycin level
--- NOTE | 2019-10-02 15:02 | PN ---
Progress Note (short form) - Note Progress Note: PULMONARY APPEARS COMFORTABLE VSS/AFEB ANICTERIC SCATTERED RHONCHI B/L S1S2 BS+ RIGHT INGUINAL HERNIA W ABSCESS NO EDEMA Labs: REVIEWED Imaging - Results Chest X-ray: Report Reviewed, Image Reviewed Problem List - Problems (1) Atelectasis of both lungs Code(s): J98.11 - ATELECTASIS (2) Alcohol use disorder Code(s): [id number] - (3) COPD (chronic obstructive pulmonary disease) Code(s): J44.9 - CHRONIC OBSTRUCTIVE PULMONARY DISEASE, UNSPECIFIED Qualifiers: COPD type: unspecified COPD Qualified Code(s): J44.9 - Chronic obstructive pulmonary disease, unspecified (4) Alcohol dependence Code(s): F10.20 - ALCOHOL DEPENDENCE, UNCOMPLICATED (5) Cough Code(s): R05 - COUGH (6) SOB (shortness of breath) Code(s): R06.02 - SHORTNESS OF BREATH (7) Schizophrenia Code(s): F20.9 - SCHIZOPHRENIA, UNSPECIFIED Assessment/Plan Prednisone 40mg OD to taper BD TX No smoking counseled O2 as needed Detox consult was called VTE prophylaxis PFTs once stable as an outpatient ? Surgical opinion for right inguinal abscess Will follow Germán RALPH MD
[2019-10-03] MEDS ORDERED: AMPICILLIN NA/SULBACTAM NA 1.5 GM VIAL ONE ×3 (00:43→16:51)
[2019-10-03] MEDS ORDERED: SODIUM CHLORIDE 100 ML IVPB ONE ×3 (00:43→16:51)
[2019-10-03] MEDS: AMPICILLIN NA/SULBACTAM NA 1.5 GM in SODIUM CHLORIDE 100 ML IVPB SCH ×3 (01:30→18:02)
[2019-10-03] MEDS: VANCOMYCIN 1 GRAM (PRE-DOCKED) 1,000 MG/250 ML BAG IVPB SCH (03:18)
[2019-10-03] MEDS: ALBUTEROL SO4 2.5/IPRATROPIUM 0.5 INH SOL 3 ML VIAL.NEB. NEB SCH ×3 (07:25→19:35)
[2019-10-03] MEDS: HEPARIN NA (PORCINE) 5,000 UNITS/ML 1ML VIAL SQ SCH ×2 (10:14→21:07)
[2019-10-03] MEDS: ACETAMINOPHEN 325 MG TABLET (FP) PO PRN ×2 (10:14→18:02)
[2019-10-03] MEDS: predniSONE 20 MG TABLET (UD) PO SCH (10:16)
[2019-10-03] MEDS: NICOTINE 7 MG/24 HOURS TOPICAL PATCH TD SCH ×2 (10:16→10:19)
[2019-10-03] MEDS: FOLIC ACID 1 MG TABLET (FP) PO SCH (10:16)
[2019-10-03] MEDS: MULTIVITAMINS (DAILY MVI) TABLET (FP) PO SCH (10:16)
[2019-10-03] MEDS: THIAMINE HCL 100 MG TABLET (FP) PO SCH (10:16)
--- NOTE | 2019-10-03 10:31 | PN ---
Progress Note, Physician Chief Complaint: R Inguinal Abscess ETOH Dependence History of Present Illness: Previous notes and events reviewed awake and alert NAD complain of pain to R inguinal area leukocytosis afebrile complain of productive cough - Current Medication List Current Medications: Active Medications Acetaminophen (Tylenol -) 650 mg PO Q4H PRN PRN Reason: PAIN LEVEL 1-5 Last Admin: 10/03/19 10:14 Dose: 650 mg Albuterol Sulfate (Ventolin 0.083% Nebulizer Soln -) 1 amp NEB Q6H PRN PRN Reason: SHORT OF BREATH/WHEEZING Albuterol/Ipratropium (Duoneb -) 1 amp NEB RTID [facility] Last Admin: 10/03/19 07:25 Dose: 1 amp Folic Acid (Folic Acid -) 1 mg PO DAILY [facility] Last Admin: 10/03/19 10:16 Dose: 1 mg Guaifenesin (Robitussin -) 10 ml PO Q6H PRN PRN Reason: COUGH Last Admin: 10/02/19 06:56 Dose: 10 ml Heparin Sodium (Porcine) (Heparin -) 5,000 unit SQ BID [facility] Last Admin: 10/03/19 10:14 Dose: 5,000 unit Vancomycin HCl (Vancomycin (Pre-Docked)) 1,000 mg in 250 mls @ 166.667 mls/hr IVPB BID@0400,1600 [facility]; Protocol Last Admin: 10/03/19 03:18 Dose: 166.667 mls/hr Ampicillin Sodium/Sulbactam (Sodium 1.5 gm/ Sodium Chloride) 100 mls @ 200 mls/ hr IVPB Q8H-IV [facility] Last Admin: 10/03/19 10:14 Dose: 200 mls/hr Lorazepam (Ativan -) 1 mg PO TID PRN PRN Reason: ANXIETY Last Admin: 10/01/19 20:32 Dose: 1 mg Multivitamins/Minerals/Vitamin C (Tab-A-Vit -) 1 tab PO DAILY [facility] Last Admin: 10/03/19 10:16 Dose: 1 tab Nicotine (Nicoderm Patch -) 7 mg TD DAILY [facility] Last Admin: 10/03/19 10:19 Dose: Not Given Prednisone (Deltasone -) 20 mg PO DAILY [facility] Last Admin: 10/03/19 10:16 Dose: 20 mg Thiamine HCl (Vitamin B1 -) 100 mg PO DAILY [facility] Last Admin: 10/03/19 10:16 Dose: 100 mg - Objective Vital Signs: Vital Signs Temperature 98.6 F 10/03/19 06:00 Pulse Rate 87 10/03/19 06:00 Respiratory Rate 18 10/03/19 06:00 Blood Pressure 130/74 10/03/19 06:00 O2 Sat by Pulse Oximetry (%) 97 10/02/19 21:00 Constitutional: Yes: No Distress, Calm Eyes: Yes: Conjunctiva Clear HENT: Yes: Atraumatic Cardiovascular: Yes: Regular Rate and Rhythm Respiratory: Yes: Regular, Cough, Diminished Gastrointestinal: Yes: Normal Bowel Sounds, Soft Musculoskeletal: Yes: WNL Extremities: Yes: WNL Edema: No Integumentary: Yes: Other (R inguinal abscess) Neurological: Yes: Alert, Oriented Psychiatric: Yes: Alert, Oriented Labs: CBC, BMP 10/02/19 07:10 10/02/19 07:10 INR, PTT INR 1.03 (0.83-1.09) 09/30/19 04:10 Microbiology 10/02/19 12:30 Abscess Gram Stain - Final 10/02/19 12:30 Abscess Wound Culture - Preliminary NO GROWTH OBTAINED AFTER 24 HOURS INCUBATION, REINCUBATED. 09/30/19 04:10 Blood - Peripheral Venous Blood Culture - Preliminary NO GROWTH OBTAINED AFTER 72 HOURS, INCUBATION TO CONTINUE FOR 2 DAYS. 09/30/19 04:10 Blood - Peripheral Venous Blood Culture - Preliminary NO GROWTH OBTAINED AFTER 72 HOURS, INCUBATION TO CONTINUE FOR 2 DAYS. Problem List - Problems (1) Rectal bleeding Assessment/Plan: -GI on board -stool OB ordered -Hg 10.6 Code(s): K62.5 - HEMORRHAGE OF ANUS AND RECTUM (2) Abscess Assessment/Plan: -ID on board -leukocytosis -afebrile -Vancomycin and Unasyn -s/p I&D in ER -wound culture neg -BC neg -CTAP shows interval development of focal skin thickening with associated mild subcutaneous soft tissue thickening seen along right inguinal region, 1.7 x 0.7cm right inguinal subcutaneous density is seen possible representing sebaceous cyst, subcutaneous structure demonstrates interval mild increased density which could be on the basis of interval infection/inflammation, right inguinal hernia is seen containing a short segment of nondilated small bowel, the right inguinal hernia underlies previously described cutaneous and subcutaneous soft tissue changes, concentric wall thickening seen along the middle third of sigmoid colon probably on basis of diverticular disease without gross interval change -Surgical consult Code(s): L02.91 - CUTANEOUS ABSCESS, UNSPECIFIED (3) Alcohol use disorder Assessment/Plan: -Dr Pastor consult -ativan prn for withdrawal/anxiety -MVI -Folic acid -Thiamine -fall and seizure precaution -Psych consult -SW consult Code(s): [id number] - (4) COPD (chronic obstructive pulmonary disease) Assessment/Plan: -Pulmonary on board -bronchodilators -O2 via NC -keep SpO2 >90% -CXR shows emphysematous bullous changes in the lungs -Prednsione 40mg daily -complain of worsening cough-reorder CXR Code(s): J44.9 - CHRONIC OBSTRUCTIVE PULMONARY DISEASE, UNSPECIFIED Qualifiers: COPD type: unspecified COPD Qualified Code(s): J44.9 - Chronic obstructive pulmonary disease, unspecified Assessment/Plan see problem list dvt ppx
--- NOTE | 2019-10-03 11:50 | PN ---
Progress Note (short form) - Note Progress Note: PULMONARY APPEARS COMFORTABLE VSS/AFEB ANICTERIC SCATTERED RHONCHI B/L S1S2 BS+ RIGHT INGUINAL HERNIA W ABSCESS NO EDEMA Labs: REVIEWED Imaging - Results Chest X-ray: Report Reviewed, Image Reviewed Problem List - Problems (1) Atelectasis of both lungs Code(s): J98.11 - ATELECTASIS (2) Alcohol use disorder Code(s): [id number] - (3) COPD (chronic obstructive pulmonary disease) Code(s): J44.9 - CHRONIC OBSTRUCTIVE PULMONARY DISEASE, UNSPECIFIED Qualifiers: COPD type: unspecified COPD Qualified Code(s): J44.9 - Chronic obstructive pulmonary disease, unspecified (4) Alcohol dependence Code(s): F10.20 - ALCOHOL DEPENDENCE, UNCOMPLICATED (5) Cough Code(s): R05 - COUGH (6) SOB (shortness of breath) Code(s): R06.02 - SHORTNESS OF BREATH (7) Schizophrenia Code(s): F20.9 - SCHIZOPHRENIA, UNSPECIFIED Assessment/Plan Prednisone 40mg OD to taper BD TX No smoking counseled O2 as needed Detox consult was called VTE prophylaxis PFTs once stable as an outpatient ? Surgical opinion for right inguinal abscess Will follow Germán RALPH MD
--- NOTE | 2019-10-03 12:35 | PN ---
Progress Note (short form) - Note Progress Note: continued drainage from RLQ area Vital Signs Period Temp Pulse Resp BP Sys/Ballard Pulse Ox Last 24 Hr 97.9 F-98.6 F 83-106 18-19 119-137/74-82 97 cor-rrr lungs clear abd soft,nt +purulent drainage RLQ CBC, BMP 10/02/19 07:10 10/02/19 07:10 Microbiology 10/02/19 12:30 Abscess Gram Stain - Final 10/02/19 12:30 Abscess Wound Culture - Preliminary NO GROWTH OBTAINED AFTER 24 HOURS INCUBATION, REINCUBATED. 09/30/19 04:10 Blood - Peripheral Venous Blood Culture - Preliminary NO GROWTH OBTAINED AFTER 72 HOURS, INCUBATION TO CONTINUE FOR 2 DAYS. 09/30/19 04:10 Blood - Peripheral Venous Blood Culture - Preliminary NO GROWTH OBTAINED AFTER 72 HOURS, INCUBATION TO CONTINUE FOR 2 DAYS. a/p right inguinal abscess inguinal hernia wound culture sent adjust vancomycin dose surgical consult 10/02/19 13:00 Vancomycin Pre-Dose 22.6
[2019-10-03] MEDS: guaiFENesin 200 MG/10 ML 10 ML UNIT-DOSE CUPS PO PRN (18:02)
[2019-10-03] MEDS ORDERED: PT OWN MED DRAWER 7, Y5N ONE (18:20)
--- NOTE | 2019-10-03 20:09 | CONSULT ---
Consult Consult Specialty:: Surgery Reason for Consultation:: right inguinal abscess - History of Present Illness Chief Complaint: right inguinal pain History of Present Illness: Patient is 54 y/o male with past medical history of COPD and Alcohol Dependence. He presented to ER with complaints of pain and swelling to R groin for 4 days. He is not sure how this began but pain and swelling increased and came to ER. Patient is also complaining of SOB due to his history of COPD. He is currently undomiciled and is not taking medication for his COPD. He does admit to alcohol dependence and drinks 6 beers daily. He also states having rectal bleeding with his BM 2 days ago. Denies chest pain, palpitations, or dizziness. I & D was done in ED as per patient. Currently with mild inguinal pain. - History Source History Provided By: Patient Limitations to Obtaining History: No Limitations - Past Medical History Pulmonary: Yes: Bronchitis, COPD, Pneumonia Gastrointestinal: Yes: Diverticulitis (10/27) Hepatobiliary: Yes: Other (alcoholic liver disease) Renal/: Yes: Other (hyponatremia) Infectious Disease: Yes: Other (chronic folliculitis/fungal skin disease?) Psych: Yes: Addictions (alcohol and cigarettes), Schizophrenia Musculoskeletal: Yes: Chronic low back pain Endocrine: Yes: Other (Hyponatremia) Dermatology: Yes: Other (chronic pruritic scaly rash lower abdomen, inguinal area and lower extremities ) Additional Medical History: Hyponatremia and prone to hypoglycemia. 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 History of Recent Travel: No Home Medications - Allergies Allergies/Adverse Reactions: Allergies Allergy/AdvReac Type Severity Reaction Status Date / Time aspirin Allergy Unknown Verified 09/30/19 02:38 phenobarbital Allergy Unknown Verified 09/30/19 02:38 - Home Medications Home Medications: Ambulatory Orders NK [No Known Home Medication] 09/30/19 Review of Systems - Review of Systems Eyes: reports: No Symptoms HENT: reports: No Symptoms Neck: reports: No Symptoms Cardiovascular: reports: No Symptoms Respiratory: reports: No Symptoms Gastrointestinal: reports: Other (right inguinal pain, mild) Physical Exam Vital Signs: Vital Signs Temperature 98.9 F 10/03/19 15:28 Pulse Rate 94 H 10/03/19 15:28 Respiratory Rate 18 10/03/19 15:28 Blood Pressure 113/72 10/03/19 15:28 O2 Sat by Pulse Oximetry (%) 95 10/03/19 09:00 Constitutional: Yes: No Distress Eyes: Yes: EOM Intact HENT: Yes: Normocephalic Neck: Yes: Supple Cardiovascular: Yes: Regular Rate and Rhythm Respiratory: Yes: CTA Bilaterally Gastrointestinal: Yes: Soft, Other (mildly tender right inguinal bulge, non- reducible) ...Rectal Exam: Yes: Deferred (right inguinal wound above the inguinal bulge about 2 x 1 cm, clean with early granulation tissue formation, no purulent discharge) Labs: CBC, BMP 10/02/19 07:10 10/02/19 07:10 Imaging - Results Cat Scan: Report Reviewed, Image Reviewed (incarcerated right inguinal hernia without bowel obstruction) Problem List - Problems (1) Inguinal abscess Assessment/Plan: resolving abscess No surgical intervention necessary Daily showers and occlusive dressing Abx Rx per ID Code(s): L02.214 - CUTANEOUS ABSCESS OF GROIN (2) Inguinal hernia bilateral, non-recurrent Assessment/Plan: Chronically incarcerated RIH without bowel obstruction and small LIH by CT scan No intervention necessary at this time May be f/u as OP for elective inguinal hernia repair. Code(s): K40.20 - BI INGUINAL HERNIA, W/O OBST OR GANGRENE, NOT SPCF RECUR
--- NOTE | 2019-10-03 23:07 | PN ---
Progress Note, Physician Chief Complaint: rt inguinal pain seen by surgery feel good now,has had tired feeling all along and tight neck discomfort in past - Current Medication List Current Medications: Active Medications Acetaminophen (Tylenol -) 650 mg PO Q4H PRN PRN Reason: PAIN LEVEL 1-5 Last Admin: 10/03/19 18:02 Dose: 650 mg Albuterol Sulfate (Ventolin 0.083% Nebulizer Soln -) 1 amp NEB Q6H PRN PRN Reason: SHORT OF BREATH/WHEEZING Albuterol/Ipratropium (Duoneb -) 1 amp NEB RTID [facility] Last Admin: 10/03/19 19:35 Dose: 1 amp Folic Acid (Folic Acid -) 1 mg PO DAILY [facility] Last Admin: 10/03/19 10:16 Dose: 1 mg Guaifenesin (Robitussin -) 10 ml PO Q6H PRN PRN Reason: COUGH Last Admin: 10/03/19 18:02 Dose: 10 ml Heparin Sodium (Porcine) (Heparin -) 5,000 unit SQ BID [facility] Last Admin: 10/03/19 21:07 Dose: 5,000 unit Ampicillin Sodium/Sulbactam (Sodium 1.5 gm/ Sodium Chloride) 100 mls @ 200 mls/ hr IVPB Q8H-IV [facility] Last Admin: 10/03/19 18:02 Dose: 200 mls/hr Vancomycin HCl (Vancomycin (Pre-Docked)) 1,000 mg in 250 mls @ 166.667 mls/hr IVPB Q24H [facility]; Protocol Lorazepam (Ativan -) 1 mg PO TID PRN PRN Reason: ANXIETY Last Admin: 10/01/19 20:32 Dose: 1 mg Multivitamins/Minerals/Vitamin C (Tab-A-Vit -) 1 tab PO DAILY [facility] Last Admin: 10/03/19 10:16 Dose: 1 tab Nicotine (Nicoderm Patch -) 7 mg TD DAILY [facility] Last Admin: 10/03/19 10:19 Dose: Not Given Prednisone (Deltasone -) 20 mg PO DAILY [facility] Last Admin: 10/03/19 10:16 Dose: 20 mg Thiamine HCl (Vitamin B1 -) 100 mg PO DAILY [facility] Last Admin: 10/03/19 10:16 Dose: 100 mg - Objective Vital Signs: Vital Signs Temperature 98 F 10/03/19 21:00 Pulse Rate 97 H 10/03/19 21:00 Respiratory Rate 19 10/03/19 21:00 Blood Pressure 135/86 10/03/19 21:00 O2 Sat by Pulse Oximetry (%) 95 10/03/19 21:00 Constitutional: Yes: Calm Eyes: Yes: EOM Intact HENT: Yes: Normocephalic Neck: Yes: Trachea Midline Cardiovascular: Yes: Regular Rate and Rhythm Respiratory: Yes: CTA Bilaterally Gastrointestinal: Yes: Normal Bowel Sounds ...Rectal Exam: Yes: Deferred Musculoskeletal: Yes: WNL Extremities: Yes: WNL Edema: No Neurological: Yes: Alert, Oriented Labs: CBC, BMP 10/02/19 07:10 10/02/19 07:10 INR, PTT INR 1.03 (0.83-1.09) 09/30/19 04:10 Problem List - Problems (1) Hypothyroidism, unspecified Problems reviewed: Yes Code(s): E03.9 - HYPOTHYROIDISM, UNSPECIFIED Qualifiers: 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 Qualified Code(s): E03.8 - Other specified hypothyroidism; E06.3 - Autoimmune thyroiditis (2) Abscess Code(s): L02.91 - CUTANEOUS ABSCESS, UNSPECIFIED (3) Alcohol use disorder Code(s): [id number] - (4) Atelectasis of both lungs Code(s): J98.11 - ATELECTASIS (5) COPD (chronic obstructive pulmonary disease) Code(s): J44.9 - CHRONIC OBSTRUCTIVE PULMONARY DISEASE, UNSPECIFIED Qualifiers: COPD type: unspecified COPD Qualified Code(s): J44.9 - Chronic obstructive pulmonary disease, unspecified (6) Rectal bleeding Code(s): K62.5 - HEMORRHAGE OF ANUS AND RECTUM (7) Abdominal pain Code(s): R10.9 - UNSPECIFIED ABDOMINAL PAIN Qualifiers: Abdominal location: lower abdomen, unspecified Qualified Code(s): R10.30 - Lower abdominal pain, unspecified Assessment/Plan Current Active Problems Abscess (Acute) Alcohol use disorder (Acute) Atelectasis of both lungs (Acute) COPD (chronic obstructive pulmonary disease) (Acute) Hypothyroidism, unspecified (Acute) Inguinal abscess (Acute) Inguinal hernia bilateral, non-recurrent (Acute) Rectal bleeding (Acute) Laboratory Results - last 24 hr 10/03/19 06:01 POC Glucometer 93 Laboratory Tests 10/01/19 10/01/19 07:15 17:35 TSH 4.28 H D 3.75 H D Free T4 0.73 L plan: synthroid 25mcg daily follow up tsh free t4 outpatient
[2019-10-04] MEDS ORDERED: AMPICILLIN NA/SULBACTAM NA 1.5 GM VIAL ONE ×4 (00:58→17:55)
[2019-10-04] MEDS ORDERED: SODIUM CHLORIDE 100 ML IVPB ONE ×4 (00:58→17:55)
[2019-10-04] MEDS: AMPICILLIN NA/SULBACTAM NA 1.5 GM in SODIUM CHLORIDE 100 ML IVPB SCH ×3 (01:45→18:00)
[2019-10-04] MEDS: VANCOMYCIN 1 GRAM (PRE-DOCKED) 1,000 MG/250 ML BAG IVPB SCH (06:26)
[2019-10-04] MEDS: LEVOTHYROXINE NA 25 MCG TABLET (FP) PO SCH (06:26)
[2019-10-04] MEDS: ALBUTEROL SO4 2.5/IPRATROPIUM 0.5 INH SOL 3 ML VIAL.NEB. NEB SCH ×3 (07:25→19:55)
[2019-10-04] MEDS: guaiFENesin 200 MG/10 ML 10 ML UNIT-DOSE CUPS PO PRN (09:31)
[2019-10-04] MEDS: HEPARIN NA (PORCINE) 5,000 UNITS/ML 1ML VIAL SQ SCH ×2 (09:31→21:07)
[2019-10-04] MEDS: THIAMINE HCL 100 MG TABLET (FP) PO SCH (09:32)
[2019-10-04] MEDS: MULTIVITAMINS (DAILY MVI) TABLET (FP) PO SCH (09:32)
[2019-10-04] MEDS: predniSONE 20 MG TABLET (UD) PO SCH (09:32)
[2019-10-04] MEDS: NICOTINE 7 MG/24 HOURS TOPICAL PATCH TD SCH (09:32)
[2019-10-04] MEDS: FOLIC ACID 1 MG TABLET (FP) PO SCH (09:32)
[2019-10-04] MEDS: ACETAMINOPHEN 325 MG TABLET (FP) PO PRN (09:32)
[2019-10-04] MEDS ORDERED: BENZOCAINE/MENTH/CETYLPYRD CL 1 EACH LOZENGE MM PRN (11:31)
--- NOTE | 2019-10-04 11:32 | PN ---
Progress Note, Physician Chief Complaint: Right inguinal abscess Alcohol withdrawal History of Present Illness: NAD sitting at the edge of the bed Denies any SOB - Current Medication List Current Medications: Active Medications Acetaminophen (Tylenol -) 650 mg PO Q4H PRN PRN Reason: PAIN LEVEL 1-5 Last Admin: 10/04/19 09:32 Dose: 650 mg Albuterol Sulfate (Ventolin 0.083% Nebulizer Soln -) 1 amp NEB Q6H PRN PRN Reason: SHORT OF BREATH/WHEEZING Albuterol/Ipratropium (Duoneb -) 1 amp NEB RTID [facility] Last Admin: 10/04/19 07:25 Dose: 1 amp Folic Acid (Folic Acid -) 1 mg PO DAILY [facility] Last Admin: 10/04/19 09:32 Dose: 1 mg Guaifenesin (Robitussin -) 10 ml PO Q6H PRN PRN Reason: COUGH Last Admin: 10/04/19 09:31 Dose: 10 ml Heparin Sodium (Porcine) (Heparin -) 5,000 unit SQ BID [facility] Last Admin: 10/04/19 09:31 Dose: 5,000 unit Ampicillin Sodium/Sulbactam (Sodium 1.5 gm/ Sodium Chloride) 100 mls @ 200 mls/ hr IVPB Q8H-IV [facility] Last Admin: 10/04/19 09:32 Dose: 200 mls/hr Vancomycin HCl (Vancomycin (Pre-Docked)) 1,000 mg in 250 mls @ 166.667 mls/hr IVPB Q24H [facility]; Protocol Last Admin: 10/04/19 06:26 Dose: 166.667 mls/hr Levothyroxine Sodium (Synthroid -) 25 mcg PO DAILY@0700 [facility] Last Admin: 10/04/19 06:26 Dose: 25 mcg Lorazepam (Ativan -) 1 mg PO TID PRN PRN Reason: ANXIETY Last Admin: 10/01/19 20:32 Dose: 1 mg Multivitamins/Minerals/Vitamin C (Tab-A-Vit -) 1 tab PO DAILY [facility] Last Admin: 10/04/19 09:32 Dose: 1 tab Nicotine (Nicoderm Patch -) 7 mg TD DAILY [facility] Last Admin: 10/04/19 09:32 Dose: Not Given Prednisone (Deltasone -) 20 mg PO DAILY [facility] Last Admin: 10/04/19 09:32 Dose: 20 mg Thiamine HCl (Vitamin B1 -) 100 mg PO DAILY [facility] Last Admin: 10/04/19 09:32 Dose: 100 mg - Objective Vital Signs: Vital Signs Temperature 98.4 F 10/04/19 09:29 Pulse Rate 90 10/04/19 09:29 Respiratory Rate 20 10/04/19 09:29 Blood Pressure 144/78 10/04/19 09:29 O2 Sat by Pulse Oximetry (%) 95 10/03/19 21:00 Constitutional: Yes: No Distress, Calm, Thin Neck: Yes: Trachea Midline Cardiovascular: Yes: Regular Rate and Rhythm Respiratory: Yes: Regular, Wheezes (LLL) Genitourinary: Yes: WNL Musculoskeletal: Yes: WNL Extremities: Yes: WNL Edema: No Peripheral Pulses WNL: Yes Neurological: Yes: Alert, Oriented Psychiatric: Yes: Alert, Oriented Labs: CBC, BMP 10/02/19 07:10 10/02/19 07:10 INR, PTT INR 1.03 (0.83-1.09) 09/30/19 04:10 Problem List - Problems (1) Pneumonia Assessment/Plan: -Pulmonary on board -PO prednisone -Bronchodilators -IV abx -ID consult -Tussin -Cepacol Problems reviewed: Yes Code(s): J18.9 - PNEUMONIA, UNSPECIFIED ORGANISM (2) Inguinal hernia bilateral, non-recurrent Assessment/Plan: -Seen by surgery -Hernias without any obstruction -no surgical intervention at this time Problems reviewed: Yes Code(s): K40.20 - BI INGUINAL HERNIA, W/O OBST OR GANGRENE, NOT SPCF RECUR (3) Anemia Assessment/Plan: -repeat labs pending Problems reviewed: Yes Code(s): D64.9 - ANEMIA, UNSPECIFIED (4) Hyponatremia Assessment/Plan: -Nephrology -chronically hyponatremic -repeat labs Problems reviewed: Yes Code(s): E87.1 - HYPO-OSMOLALITY AND HYPONATREMIA Assessment/Plan (1) Rectal bleeding Assessment/Plan: -GI on board -stool OB ordered Code(s): K62.5 - HEMORRHAGE OF ANUS AND RECTUM (2) Abscess Assessment/Plan: -ID on board -leukocytosis -afebrile -Vancomycin and Unasyn -s/p I&D in ER -wound culture neg -BC neg -CTAP shows interval development of focal skin thickening with associated mild subcutaneous soft tissue thickening seen along right inguinal region, 1.7 x 0.7cm right inguinal subcutaneous density is seen possible representing sebaceous cyst, subcutaneous structure demonstrates interval mild increased density which could be on the basis of interval infection/inflammation, right inguinal hernia is seen containing a short segment of nondilated small bowel, the right inguinal hernia underlies previously described cutaneous and subcutaneous soft tissue changes, concentric wall thickening seen along the middle third of sigmoid colon probably on basis of diverticular disease without gross interval change -Surgical consult appreciated -No surgical intervention needed to drain resolving abscess Code(s): L02.91 - CUTANEOUS ABSCESS, UNSPECIFIED (3) Alcohol use disorder Assessment/Plan: -Dr Pastor consult -ativan prn for withdrawal/anxiety -MVI -Folic acid -Thiamine -fall and seizure precaution -Psych consult -SW consult Code(s): [id number] - (4) COPD (chronic obstructive pulmonary disease) Assessment/Plan: -Pulmonary on board -bronchodilators -O2 via NC -keep SpO2 >90% -CXR shows emphysematous bullous changes in the lungs -Prednsione 20mg daily Code(s): J44.9 - CHRONIC OBSTRUCTIVE PULMONARY DISEASE, UNSPECIFIED Qualifiers: COPD type: unspecified COPD Qualified Code(s): J44.9 - Chronic obstructive pulmonary disease, unspecified Assessment/Plan see problem list dvt ppx
--- NOTE | 2019-10-04 12:03 | PN ---
Progress Note (short form) - Note Progress Note: PULMONARY Occasional shortness of breath. No cough or wheezing. CXR done, read as bilateral infiltrates. Vital Signs Period Temp Pulse Resp BP Sys/Ballard Pulse Ox Last 24 Hr 98 F-98.9 F 90-97 18-20 113-144/72-96 95 Gen: NAD at rest Heart: RRR Lung: decreased breath sounds at the bases Abd: soft, nontender Ext: no edema CBC, BMP 10/02/19 07:10 10/02/19 07:10 Active Medications Acetaminophen (Tylenol -) 650 mg PO Q4H PRN PRN Reason: PAIN LEVEL 1-5 Last Admin: 10/04/19 09:32 Dose: 650 mg Albuterol Sulfate (Ventolin 0.083% Nebulizer Soln -) 1 amp NEB Q6H PRN PRN Reason: SHORT OF BREATH/WHEEZING Albuterol/Ipratropium (Duoneb -) 1 amp NEB RTID [facility] Last Admin: 10/04/19 07:25 Dose: 1 amp Benzocaine/Menthol (Cepacol Lozenge -) 1 each MM PRN PRN PRN Reason: SORE THROAT Folic Acid (Folic Acid -) 1 mg PO DAILY [facility] Last Admin: 10/04/19 09:32 Dose: 1 mg Guaifenesin (Robitussin -) 10 ml PO Q6H PRN PRN Reason: COUGH Last Admin: 10/04/19 09:31 Dose: 10 ml Heparin Sodium (Porcine) (Heparin -) 5,000 unit SQ BID [facility] Last Admin: 10/04/19 09:31 Dose: 5,000 unit Ampicillin Sodium/Sulbactam (Sodium 1.5 gm/ Sodium Chloride) 100 mls @ 200 mls/ hr IVPB Q8H-IV [facility] Last Admin: 10/04/19 09:32 Dose: 200 mls/hr Vancomycin HCl (Vancomycin (Pre-Docked)) 1,000 mg in 250 mls @ 166.667 mls/hr IVPB Q24H [facility]; Protocol Last Admin: 10/04/19 06:26 Dose: 166.667 mls/hr Levothyroxine Sodium (Synthroid -) 25 mcg PO DAILY@0700 [facility] Last Admin: 10/04/19 06:26 Dose: 25 mcg Lorazepam (Ativan -) 1 mg PO TID PRN PRN Reason: ANXIETY Last Admin: 10/01/19 20:32 Dose: 1 mg Multivitamins/Minerals/Vitamin C (Tab-A-Vit -) 1 tab PO DAILY [facility] Last Admin: 10/04/19 09:32 Dose: 1 tab Nicotine (Nicoderm Patch -) 7 mg TD DAILY [facility] Last Admin: 10/04/19 09:32 Dose: Not Given Prednisone (Deltasone -) 20 mg PO DAILY [facility] Last Admin: 10/04/19 09:32 Dose: 20 mg Thiamine HCl (Vitamin B1 -) 100 mg PO DAILY [facility] Last Admin: 10/04/19 09:32 Dose: 100 mg A/P Inguinal Abscess Atelectasis COPD Alcohol Abuse Schizophrenia Smoker - continue antibiotics for abscess - CXR findings more consistent with atelectasis - prednisone taper - inhaled bronchodilators - DVT prophylaxis - outpt PFTs - smoking cessation
[2019-10-04 13:21] LABS: BASO % 0.6 % (0-2.0); EOS % 0.9 % (0-4.5); HEMATOCRIT 36.9 % (35.4-49); HEMOGLOBIN 12.3 GM/dL (11.7-16.9); LYMPH % 14.1 % (8-40); MCH 31.2 pg (25.7-33.7); MCHC 33.2 g/dl (32.0-35.9); MEAN PLT VOLUME 7.9 fl (7.5-11.1); MONO % 5.5 % (3.8-10.2); NEUT % 78.9 % (42.8-82.8); PLATELET COUNT 351 K/MM3 (134-434); RBC 3.93 M/mm3 (4.00-5.60); WHITE BLOOD COUNT 9.3 K/mm3 (4.0-10.0)
[2019-10-04 13:46] LABS: ALBUMIN 3.3 g/dl (3.4-5.0); BILIRUBIN,TOTAL 0.3 mg/dL (0.2-1); BLOOD UREA NITROGEN 7.4 mg/dL (7-18); CALCIUM 9.1 mg/dL (8.5-10.1); CREATININE 0.8 mg/dL (0.55-1.3); POTASSIUM 3.6 mmol/L (3.5-5.1); TOT PROT 6.6 g/dl (6.4-8.2)
--- NOTE | 2019-10-04 15:34 | CONSULT ---
Consult Consult Specialty:: Nephrology Reason for Consultation:: hyponatremia - History of Present Illness Chief Complaint: right groid swelling History of Present Illness: Pt is a 54 year old male with pmhx of copd and etoh abuse who presents with groin pain and swelling. He was found to be hyponatremic and I was called to evaluate him. His sodium is improving. He has not stopped drinking alcohol. He still lives in his van. He denies shortness of breath. He denies dysuria or hematuria. He denies nsaid use. - History Source History Provided By: Patient - Past Medical History Pulmonary: Yes: Bronchitis, COPD, Pneumonia Gastrointestinal: Yes: Diverticulitis (10/27) Hepatobiliary: Yes: Other (alcoholic liver disease) Renal/: Yes: Other (hyponatremia) Infectious Disease: Yes: Other (chronic folliculitis/fungal skin disease?) Psych: Yes: Addictions (alcohol and cigarettes), Schizophrenia Musculoskeletal: Yes: Chronic low back pain Endocrine: Yes: Other (Hyponatremia) Dermatology: Yes: Other (chronic pruritic scaly rash lower abdomen, inguinal area and lower extremities ) Additional Medical History: Hyponatremia and prone to hypoglycemia. 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 History of Recent Travel: No Home Medications - Allergies Allergies/Adverse Reactions: Allergies Allergy/AdvReac Type Severity Reaction Status Date / Time aspirin Allergy Unknown Verified 09/30/19 02:38 phenobarbital Allergy Unknown Verified 09/30/19 02:38 - Home Medications Home Medications: Ambulatory Orders NK [No Known Home Medication] 09/30/19 Family Medical History Family History: Denies Review of Systems - Review of Systems Constitutional: reports: No Symptoms Eyes: reports: No Symptoms HENT: reports: No Symptoms Neck: reports: No Symptoms Cardiovascular: reports: No Symptoms Respiratory: reports: No Symptoms Gastrointestinal: reports: No Symptoms Genitourinary: reports: No Symptoms Musculoskeletal: reports: No Symptoms Endocrine: reports: No Symptoms Psychiatric: reports: No Symptoms Physical Exam Vital Signs: Vital Signs Temperature 98.4 F 10/04/19 09:29 Pulse Rate 90 10/04/19 09:29 Respiratory Rate 20 10/04/19 09:29 Blood Pressure 144/78 10/04/19 09:29 O2 Sat by Pulse Oximetry (%) 95 10/03/19 21:00 Constitutional: Yes: Calm Eyes: Yes: Conjunctiva Clear HENT: Yes: Atraumatic Neck: Yes: Supple Cardiovascular: Yes: S1, S2 Respiratory: Yes: CTA Bilaterally Gastrointestinal: Yes: Normal Bowel Sounds, Soft Renal/: Yes: WNL Musculoskeletal: Yes: WNL Edema: No Integumentary: Yes: Venous Stasis Changes Neurological: Yes: Oriented Psychiatric: Yes: Oriented Labs: CBC, BMP 10/04/19 12:30 10/04/19 12:30 Assessment/Plan Current Medications Generic Name Dose Route Start Last Admin Trade Name Freq PRN Reason Stop Dose Admin Acetaminophen 650 mg 09/30/19 09:54 10/04/19 09:32 Tylenol - PO 650 mg Q4H PRN Administration PAIN LEVEL 1-5 Albuterol Sulfate 1 amp 09/30/19 10:20 Ventolin 0.083% Nebulizer Soln - NEB Q6H PRN SHORT OF BREATH/WHEEZING Albuterol/Ipratropium 1 amp 09/30/19 20:00 10/04/19 14:24 Duoneb - NEB 1 amp RTID [facility] Administration Benzocaine/Menthol 1 each 10/04/19 11:31 Cepacol Lozenge - MM PRN PRN SORE THROAT Folic Acid 1 mg 10/01/19 10:00 10/04/19 09:32 Folic Acid - PO 1 mg DAILY [facility] Administration Guaifenesin 10 ml 10/01/19 20:36 10/04/19 09:31 Robitussin - PO 10 ml Q6H PRN Administration COUGH Heparin Sodium (Porcine) 5,000 unit 09/30/19 10:00 10/04/19 09:31 Heparin - SQ 5,000 unit BID [facility] Administration Ampicillin Sodium/Sulbactam 100 mls @ 200 mls/hr 09/30/19 15:45 10/04/19 09: 32 Sodium 1.5 gm/ Sodium Chloride IVPB 200 mls/hr Q8H-IV [facility] Administration Vancomycin HCl 1,000 mg in 250 mls @ 166.667 mls/hr 10/04/19 07:00 10/04/19 06:26 Vancomycin (Pre-Docked) IVPB 166.667 mls/hr Q24H [facility] Administration Protocol Levothyroxine Sodium 25 mcg 10/04/19 07:00 10/04/19 06:26 Synthroid - PO 25 mcg DAILY@0700 [facility] Administration Lorazepam 1 mg 09/30/19 10:26 10/01/19 20:32 Ativan - PO 1 mg TID PRN Administration ANXIETY Multivitamins/Minerals/Vitamin C 1 tab 10/01/19 10:00 10/04/19 09:32 Tab-A-Vit - PO 1 tab DAILY [facility] Administration Nicotine 7 mg 09/30/19 10:30 10/04/19 09:32 Nicoderm Patch - TD Not Given DAILY [facility] Prednisone 20 mg 10/02/19 15:01 10/04/19 09:32 Deltasone - PO 20 mg DAILY [facility] Administration Thiamine HCl 100 mg 10/01/19 10:00 10/04/19 09:32 Vitamin B1 - PO 100 mg DAILY [facility] Administration Laboratory Tests 09/30/19 09/30/19 10/01/19 04:10 17:49 07:15 Sodium 126 L 134 L Creatinine Urine Protein Negative Urine Blood Negative 10/02/19 10/04/19 07:10 12:30 Sodium 133 L 136 Creatinine 0.8 Urine Protein Urine Blood Impression 1. hyponatremia - chronic 2. diverticulosis 3. etoh abuse 4. anemia 5. copd 6. microscopic hematuria 7. groin abscess Plan - sodium is stable - recommend he stop drinking etoh - monitor sodium - stable off of fluids - repeat labs in am
[2019-10-04] MEDS ORDERED: MECLIZINE HCL 25 MG TABLET (FP) PO PRN (18:34)
[2019-10-04] MEDS ORDERED: MECLIZINE HCL 25 MG TABLET (FP) PO ONE (18:34)
[2019-10-05] MEDS ORDERED: AMPICILLIN NA/SULBACTAM NA 1.5 GM VIAL ONE ×3 (01:16→17:04)
[2019-10-05] MEDS ORDERED: SODIUM CHLORIDE 100 ML IVPB ONE ×3 (01:16→17:04)
[2019-10-05] MEDS: AMPICILLIN NA/SULBACTAM NA 1.5 GM in SODIUM CHLORIDE 100 ML IVPB SCH ×2 (01:24→10:50)
[2019-10-05] MEDS: LEVOTHYROXINE NA 25 MCG TABLET (FP) PO SCH (06:46)
[2019-10-05] MEDS: VANCOMYCIN 1 GRAM (PRE-DOCKED) 1,000 MG/250 ML BAG IVPB SCH (06:50)
[2019-10-05] MEDS: ALBUTEROL SO4 2.5/IPRATROPIUM 0.5 INH SOL 3 ML VIAL.NEB. NEB SCH ×3 (07:55→20:10)
[2019-10-05 08:24] LABS: BILIRUBIN,TOTAL 0.3 mg/dL (0.2-1); BLOOD UREA NITROGEN 9.2 mg/dL (7-18); CALCIUM 8.7 mg/dL (8.5-10.1); CREATININE 0.7 mg/dL (0.55-1.3); POTASSIUM 3.6 mmol/L (3.5-5.1); TOT PROT 5.9 g/dl (6.4-8.2)
[2019-10-05] MEDS: FOLIC ACID 1 MG TABLET (FP) PO SCH (10:50)
[2019-10-05] MEDS: HEPARIN NA (PORCINE) 5,000 UNITS/ML 1ML VIAL SQ SCH ×2 (10:50→21:30)
[2019-10-05] MEDS: NICOTINE 7 MG/24 HOURS TOPICAL PATCH TD SCH (10:50)
[2019-10-05] MEDS: MULTIVITAMINS (DAILY MVI) TABLET (FP) PO SCH (10:50)
[2019-10-05] MEDS: THIAMINE HCL 100 MG TABLET (FP) PO SCH (10:50)
[2019-10-05] MEDS: predniSONE 20 MG TABLET (UD) PO SCH (10:50)
[2019-10-05] MEDS: guaiFENesin 200 MG/10 ML 10 ML UNIT-DOSE CUPS PO PRN (11:01)
--- NOTE | 2019-10-05 11:12 | PN ---
Progress Note, Physician Chief Complaint: Right inguinal abscess Alcohol withdrawal History of Present Illness: NAD sitting at the edge of the bed Denies any SOB Right inguinal pain Intermittent dizziness "room is spinning"-improved after meclizine - Current Medication List Current Medications: Active Medications Acetaminophen (Tylenol -) 650 mg PO Q4H PRN PRN Reason: PAIN LEVEL 1-5 Last Admin: 10/04/19 09:32 Dose: 650 mg Albuterol/Ipratropium (Duoneb -) 1 amp NEB RTID [facility] Last Admin: 10/04/19 19:55 Dose: 1 amp Benzocaine/Menthol (Cepacol Lozenge -) 1 each MM PRN PRN PRN Reason: SORE THROAT Folic Acid (Folic Acid -) 1 mg PO DAILY [facility] Last Admin: 10/05/19 10:50 Dose: 1 mg Guaifenesin (Robitussin -) 10 ml PO Q6H PRN PRN Reason: COUGH Last Admin: 10/05/19 11:01 Dose: 10 ml Heparin Sodium (Porcine) (Heparin -) 5,000 unit SQ BID [facility] Last Admin: 10/05/19 10:50 Dose: 5,000 unit Ampicillin Sodium/Sulbactam (Sodium 1.5 gm/ Sodium Chloride) 100 mls @ 200 mls/ hr IVPB Q8H-IV [facility] Last Admin: 10/05/19 10:50 Dose: 200 mls/hr Vancomycin HCl (Vancomycin (Pre-Docked)) 1,000 mg in 250 mls @ 166.667 mls/hr IVPB Q24H [facility]; Protocol Last Admin: 10/05/19 06:50 Dose: 166.667 mls/hr Levothyroxine Sodium (Synthroid -) 25 mcg PO DAILY@0700 [facility] Last Admin: 10/05/19 06:46 Dose: 25 mcg Lorazepam (Ativan -) 1 mg PO TID PRN PRN Reason: ANXIETY Last Admin: 10/01/19 20:32 Dose: 1 mg Meclizine HCl (Antivert -) 25 mg PO TID PRN PRN Reason: VERTIGO Multivitamins/Minerals/Vitamin C (Tab-A-Vit -) 1 tab PO DAILY [facility] Last Admin: 10/05/19 10:50 Dose: 1 tab Nicotine (Nicoderm Patch -) 7 mg TD DAILY [facility] Last Admin: 10/05/19 10:50 Dose: Not Given Prednisone (Deltasone -) 20 mg PO DAILY [facility] Last Admin: 10/05/19 10:50 Dose: 20 mg Thiamine HCl (Vitamin B1 -) 100 mg PO DAILY [facility] Last Admin: 10/05/19 10:50 Dose: 100 mg - Objective Vital Signs: Vital Signs Temperature 98.6 F 10/05/19 06:00 Pulse Rate 88 10/05/19 06:00 Respiratory Rate 10/05/19 06:00 Blood Pressure 145/83 10/05/19 06:00 O2 Sat by Pulse Oximetry (%) 94 L 10/04/19 21:00 Constitutional: Yes: No Distress, Calm, Thin Cardiovascular: Yes: Regular Rate and Rhythm Respiratory: Yes: Regular Gastrointestinal: Yes: Normal Bowel Sounds, Soft Genitourinary: Yes: WNL Musculoskeletal: Yes: WNL Extremities: Yes: WNL Edema: No Peripheral Pulses WNL: Yes Wound/Incision: Yes: Dressing Removed, Draining (purulant fluid) Neurological: Yes: Alert, Oriented Psychiatric: Yes: Alert, Oriented Labs: CBC, BMP 10/04/19 12:30 10/05/19 07:25 INR, PTT INR 1.03 (0.83-1.09) 09/30/19 04:10 Problem List - Problems (1) Pneumonia Assessment/Plan: -Pulmonary on board -PO prednisone -Bronchodilators -IV abx -ID consult -Tussin -Cepacol Problems reviewed: Yes Code(s): J18.9 - PNEUMONIA, UNSPECIFIED ORGANISM (2) Inguinal hernia bilateral, non-recurrent Assessment/Plan: -Seen by surgery -Hernias without any obstruction -no surgical intervention at this time Problems reviewed: Yes Code(s): K40.20 - BI INGUINAL HERNIA, W/O OBST OR GANGRENE, NOT SPCF RECUR (3) Anemia Assessment/Plan: -repeat labs pending -Previously low in Iron% -Recheck Iron profile, B12 and stool OB Problems reviewed: Yes Code(s): D64.9 - ANEMIA, UNSPECIFIED (4) Hyponatremia Assessment/Plan: -Nephrology -chronically hyponatremic -repeat labs-Resolved Problems reviewed: Yes Code(s): E87.1 - HYPO-OSMOLALITY AND HYPONATREMIA (5) Vertigo Assessment/Plan: -Meclizine 25 mg po TID PRN -Loratadine 10 mg po daily Problems reviewed: Yes Code(s): R42 - DIZZINESS AND GIDDINESS (6) Inguinal abscess Assessment/Plan: -ID on board -IV abx -Cultures: Microbiology 09/30/19 04:10 Blood - Peripheral Venous Blood Culture - Final NO GROWTH AFTER 5 DAYS INCUBATION 09/30/19 04:10 Blood - Peripheral Venous Blood Culture - Final NO GROWTH AFTER 5 DAYS INCUBATION 10/02/19 12:30 Abscess Gram Stain - Final 10/02/19 12:30 Abscess Wound Culture - Preliminary Staphylococcus Coagulase Neg -afebrile -leukocytosis resolved -local wound care Problems reviewed: Yes Code(s): L02.214 - CUTANEOUS ABSCESS OF GROIN Assessment/Plan see problem list PT
[2019-10-05] MEDS: LORATADINE 10 MG TABLET PO SCH (12:07)
[2019-10-05] MEDS: ACETAMINOPHEN 325 MG TABLET (FP) PO PRN (12:08)
--- NOTE | 2019-10-05 12:25 | PN ---
Progress Note (short form) - Note Progress Note: PULMONARY Occasional shortness of breath. No cough or wheezing. No fevers recorded. Vital Signs Period Temp Pulse Resp BP Sys/Ballard Pulse Ox Last 24 Hr 98.4 F-98.6 F 88-97 18-20 142-145/78-83 94 Gen: NAD at rest Heart: RRR Lung: decreased breath sounds at the bases Abd: soft, nontender Ext: no edema CBC, BMP 10/04/19 12:30 10/05/19 07:25 Active Medications Acetaminophen (Tylenol -) 650 mg PO Q4H PRN PRN Reason: PAIN LEVEL 1-5 Last Admin: 10/05/19 12:08 Dose: 650 mg Albuterol/Ipratropium (Duoneb -) 1 amp NEB RTID [facility] Last Admin: 10/05/19 07:55 Dose: 1 amp Benzocaine/Menthol (Cepacol Lozenge -) 1 each MM PRN PRN PRN Reason: SORE THROAT Folic Acid (Folic Acid -) 1 mg PO DAILY [facility] Last Admin: 10/05/19 10:50 Dose: 1 mg Guaifenesin (Robitussin -) 10 ml PO Q6H PRN PRN Reason: COUGH Last Admin: 10/05/19 11:01 Dose: 10 ml Heparin Sodium (Porcine) (Heparin -) 5,000 unit SQ BID [facility] Last Admin: 10/05/19 10:50 Dose: 5,000 unit Ampicillin Sodium/Sulbactam (Sodium 1.5 gm/ Sodium Chloride) 100 mls @ 200 mls/ hr IVPB Q8H-IV [facility] Last Admin: 10/05/19 10:50 Dose: 200 mls/hr Vancomycin HCl (Vancomycin (Pre-Docked)) 1,000 mg in 250 mls @ 166.667 mls/hr IVPB Q24H [facility]; Protocol Last Admin: 10/05/19 06:50 Dose: 166.667 mls/hr Levothyroxine Sodium (Synthroid -) 25 mcg PO DAILY@0700 [facility] Last Admin: 10/05/19 06:46 Dose: 25 mcg Loratadine (Claritin -) 10 mg PO DAILY [facility] Last Admin: 10/05/19 12:07 Dose: 10 mg Lorazepam (Ativan -) 1 mg PO TID PRN PRN Reason: ANXIETY Last Admin: 10/01/19 20:32 Dose: 1 mg Meclizine HCl (Antivert -) 25 mg PO TID PRN PRN Reason: VERTIGO Multivitamins/Minerals/Vitamin C (Tab-A-Vit -) 1 tab PO DAILY [facility] Last Admin: 10/05/19 10:50 Dose: 1 tab Nicotine (Nicoderm Patch -) 7 mg TD DAILY [facility] Last Admin: 10/05/19 10:50 Dose: Not Given Prednisone (Deltasone -) 20 mg PO DAILY [facility] Last Admin: 10/05/19 10:50 Dose: 20 mg Thiamine HCl (Vitamin B1 -) 100 mg PO DAILY [facility] Last Admin: 10/05/19 10:50 Dose: 100 mg A/P Inguinal Abscess Atelectasis COPD Alcohol Abuse Schizophrenia Smoker - continue antibiotics for abscess - CXR findings more consistent with atelectasis - prednisone taper - inhaled bronchodilators - DVT prophylaxis - outpt PFTs - smoking cessation
--- NOTE | 2019-10-05 17:16 | PN ---
Progress Note, Physician History of Present Illness: AWAKE, ALERT IN BED C/O R INGUINAL PAIN AFEBRILE WBC IMPROVED BC (-) WOUND C/S SCN - Current Medication List Current Medications: Active Medications Acetaminophen (Tylenol -) 650 mg PO Q4H PRN PRN Reason: PAIN LEVEL 1-5 Last Admin: 10/05/19 12:08 Dose: 650 mg Albuterol/Ipratropium (Duoneb -) 1 amp NEB RTID [facility] Last Admin: 10/05/19 14:30 Dose: 1 amp Benzocaine/Menthol (Cepacol Lozenge -) 1 each MM PRN PRN PRN Reason: SORE THROAT Folic Acid (Folic Acid -) 1 mg PO DAILY [facility] Last Admin: 10/05/19 10:50 Dose: 1 mg Guaifenesin (Robitussin -) 10 ml PO Q6H PRN PRN Reason: COUGH Last Admin: 10/05/19 11:01 Dose: 10 ml Heparin Sodium (Porcine) (Heparin -) 5,000 unit SQ BID [facility] Last Admin: 10/05/19 10:50 Dose: 5,000 unit Vancomycin HCl (Vancomycin (Pre-Docked)) 1,000 mg in 250 mls @ 166.667 mls/hr IVPB Q24H [facility]; Protocol Last Admin: 10/05/19 06:50 Dose: 166.667 mls/hr Levothyroxine Sodium (Synthroid -) 25 mcg PO DAILY@0700 [facility] Last Admin: 10/05/19 06:46 Dose: 25 mcg Loratadine (Claritin -) 10 mg PO DAILY [facility] Last Admin: 10/05/19 12:07 Dose: 10 mg Lorazepam (Ativan -) 1 mg PO TID PRN PRN Reason: ANXIETY Last Admin: 10/01/19 20:32 Dose: 1 mg Meclizine HCl (Antivert -) 25 mg PO TID PRN PRN Reason: VERTIGO Multivitamins/Minerals/Vitamin C (Tab-A-Vit -) 1 tab PO DAILY [facility] Last Admin: 10/05/19 10:50 Dose: 1 tab Nicotine (Nicoderm Patch -) 7 mg TD DAILY [facility] Last Admin: 10/05/19 10:50 Dose: Not Given Prednisone (Deltasone -) 20 mg PO DAILY [facility] Last Admin: 10/05/19 10:50 Dose: 20 mg Thiamine HCl (Vitamin B1 -) 100 mg PO DAILY [facility] Last Admin: 10/05/19 10:50 Dose: 100 mg - Objective Vital Signs: Vital Signs Temperature 98.0 F 10/05/19 15:01 Pulse Rate 89 10/05/19 15:01 Respiratory Rate 18 10/05/19 15:01 Blood Pressure 108/65 10/05/19 15:01 O2 Sat by Pulse Oximetry (%) 94 L 10/04/19 21:00 Constitutional: Yes: No Distress Eyes: Yes: Conjunctiva Clear Cardiovascular: Yes: Regular Rate and Rhythm, S1, S2 Respiratory: Yes: CTA Bilaterally Gastrointestinal: Yes: Normal Bowel Sounds, Soft Integumentary: Yes: Other (DECREASED ERYTHEMA/ SWELLING/ TENDERNESS R INGUINAL AREA) Labs: CBC, BMP 10/04/19 12:30 10/05/19 07:25 INR, PTT INR 1.03 (0.83-1.09) 09/30/19 04:10 Assessment/Plan S/P DRAINAGE R INGUINAL SOFT TISSUE ABSCESS CELLULITIS R INGUINAL AREA CONTINUE VANCOMYCIN/ UNASYN LOCAL WOUND CARE
--- NOTE | 2019-10-05 18:54 | PN ---
Progress Note, Physician History of Present Illness: Pt seen and examined at bedside. He is awake and alert. He denies shortness of breath. - Current Medication List Current Medications: Active Medications Acetaminophen (Tylenol -) 650 mg PO Q4H PRN PRN Reason: PAIN LEVEL 1-5 Last Admin: 10/05/19 12:08 Dose: 650 mg Albuterol/Ipratropium (Duoneb -) 1 amp NEB RTID [facility] Last Admin: 10/05/19 14:30 Dose: 1 amp Benzocaine/Menthol (Cepacol Lozenge -) 1 each MM PRN PRN PRN Reason: SORE THROAT Folic Acid (Folic Acid -) 1 mg PO DAILY [facility] Last Admin: 10/05/19 10:50 Dose: 1 mg Guaifenesin (Robitussin -) 10 ml PO Q6H PRN PRN Reason: COUGH Last Admin: 10/05/19 11:01 Dose: 10 ml Heparin Sodium (Porcine) (Heparin -) 5,000 unit SQ BID [facility] Last Admin: 10/05/19 10:50 Dose: 5,000 unit Vancomycin HCl (Vancomycin (Pre-Docked)) 1,000 mg in 250 mls @ 166.667 mls/hr IVPB Q24H [facility]; Protocol Last Admin: 10/05/19 06:50 Dose: 166.667 mls/hr Levothyroxine Sodium (Synthroid -) 25 mcg PO DAILY@0700 [facility] Last Admin: 10/05/19 06:46 Dose: 25 mcg Loratadine (Claritin -) 10 mg PO DAILY [facility] Last Admin: 10/05/19 12:07 Dose: 10 mg Lorazepam (Ativan -) 1 mg PO TID PRN PRN Reason: ANXIETY Last Admin: 10/01/19 20:32 Dose: 1 mg Meclizine HCl (Antivert -) 25 mg PO TID PRN PRN Reason: VERTIGO Multivitamins/Minerals/Vitamin C (Tab-A-Vit -) 1 tab PO DAILY [facility] Last Admin: 10/05/19 10:50 Dose: 1 tab Nicotine (Nicoderm Patch -) 7 mg TD DAILY [facility] Last Admin: 10/05/19 10:50 Dose: Not Given Prednisone (Deltasone -) 20 mg PO DAILY [facility] Last Admin: 10/05/19 10:50 Dose: 20 mg Thiamine HCl (Vitamin B1 -) 100 mg PO DAILY [facility] Last Admin: 10/05/19 10:50 Dose: 100 mg - Objective Vital Signs: Vital Signs Temperature 97.6 F 10/05/19 18:00 Pulse Rate 97 H 10/05/19 18:00 Respiratory Rate 18 10/05/19 18:00 Blood Pressure 145/90 10/05/19 18:00 O2 Sat by Pulse Oximetry (%) 98 10/05/19 09:00 Constitutional: Yes: Calm Eyes: Yes: Conjunctiva Clear HENT: Yes: Atraumatic Cardiovascular: Yes: S1, S2 Respiratory: Yes: CTA Bilaterally Gastrointestinal: Yes: Soft Genitourinary: Yes: WNL Musculoskeletal: Yes: WNL Edema: No Neurological: Yes: Oriented Psychiatric: Yes: Oriented Labs: CBC, BMP 10/04/19 12:30 10/05/19 07:25 INR, PTT INR 1.03 (0.83-1.09) 09/30/19 04:10 Assessment/Plan Current Medications Generic Name Dose Route Start Last Admin Trade Name Freq PRN Reason Stop Dose Admin Acetaminophen 650 mg 09/30/19 09:54 10/05/19 12:08 Tylenol - PO 650 mg Q4H PRN Administration PAIN LEVEL 1-5 Albuterol/Ipratropium 1 amp 09/30/19 20:00 10/05/19 14:30 Duoneb - NEB 1 amp RTID [facility] Administration Benzocaine/Menthol 1 each 10/04/19 11:31 Cepacol Lozenge - MM PRN PRN SORE THROAT Folic Acid 1 mg 10/01/19 10:00 10/05/19 10:50 Folic Acid - PO 1 mg DAILY [facility] Administration Guaifenesin 10 ml 10/01/19 20:36 10/05/19 11:01 Robitussin - PO 10 ml Q6H PRN Administration COUGH Heparin Sodium (Porcine) 5,000 unit 09/30/19 10:00 10/05/19 10:50 Heparin - SQ 5,000 unit BID [facility] Administration Vancomycin HCl 1,000 mg in 250 mls @ 166.667 mls/hr 10/04/19 07:00 10/05/19 06:50 Vancomycin (Pre-Docked) IVPB 166.667 mls/hr Q24H [facility] Administration Protocol Levothyroxine Sodium 25 mcg 10/04/19 07:00 10/05/19 06:46 Synthroid - PO 25 mcg DAILY@0700 [facility] Administration Loratadine 10 mg 10/05/19 11:15 10/05/19 12:07 Claritin - PO 10 mg DAILY [facility] Administration Lorazepam 1 mg 09/30/19 10:26 10/01/19 20:32 Ativan - PO 1 mg TID PRN Administration ANXIETY Meclizine HCl 25 mg 10/04/19 18:34 Antivert - PO TID PRN VERT[facility]O Multivitamins/Minerals/Vitamin C 1 tab 10/01/19 10:00 10/05/19 10:50 Tab-A-Vit - PO 1 tab DAILY [facility] Administration Nicotine 7 mg 09/30/19 10:30 10/05/19 10:50 Nicoderm Patch - TD Not Given DAILY [facility] Prednisone 20 mg 10/02/19 15:01 10/05/19 10:50 Deltasone - PO 20 mg DAILY [facility] Administration Thiamine HCl 100 mg 10/01/19 10:00 10/05/19 10:50 Vitamin B1 - PO 100 mg DAILY [facility] Administration Impression 1. hyponatremia - chronic 2. diverticulosis 3. etoh abuse 4. anemia 5. copd 6. microscopic hematuria 7. groin abscess Plan - sodium improved - avoid etoh - monitor lytes - will follow prn
[2019-10-06] MEDS: LEVOTHYROXINE NA 25 MCG TABLET (FP) PO SCH (06:03)
[2019-10-06] MEDS: VANCOMYCIN 1 GRAM (PRE-DOCKED) 1,000 MG/250 ML BAG IVPB SCH (06:03)
[2019-10-06] MEDS: ALBUTEROL SO4 2.5/IPRATROPIUM 0.5 INH SOL 3 ML VIAL.NEB. NEB SCH ×3 (08:26→19:36)
[2019-10-06] MEDS: HEPARIN NA (PORCINE) 5,000 UNITS/ML 1ML VIAL SQ SCH ×2 (09:21→21:20)
[2019-10-06] MEDS: predniSONE 20 MG TABLET (UD) PO SCH (09:22)
[2019-10-06] MEDS: THIAMINE HCL 100 MG TABLET (FP) PO SCH (09:22)
[2019-10-06] MEDS: MULTIVITAMINS (DAILY MVI) TABLET (FP) PO SCH (09:22)
[2019-10-06] MEDS: LORATADINE 10 MG TABLET PO SCH (09:22)
[2019-10-06] MEDS: NICOTINE 7 MG/24 HOURS TOPICAL PATCH TD SCH (09:22)
[2019-10-06] MEDS: FOLIC ACID 1 MG TABLET (FP) PO SCH (09:22)
--- NOTE | 2019-10-06 11:25 | PN ---
Progress Note, Physician Chief Complaint: Right inguinal abscess Alcohol withdrawal History of Present Illness: NAD sitting at the edge of the bed Denies any SOB Right inguinal pain Intermittent dizziness "room is spinning"-improved after meclizine - Current Medication List Current Medications: Active Medications Acetaminophen (Tylenol -) 650 mg PO Q4H PRN PRN Reason: PAIN LEVEL 1-5 Last Admin: 10/05/19 12:08 Dose: 650 mg Albuterol/Ipratropium (Duoneb -) 1 amp NEB RTID [facility] Last Admin: 10/06/19 08:26 Dose: 1 amp Benzocaine/Menthol (Cepacol Lozenge -) 1 each MM PRN PRN PRN Reason: SORE THROAT Folic Acid (Folic Acid -) 1 mg PO DAILY [facility] Last Admin: 10/06/19 09:22 Dose: 1 mg Guaifenesin (Robitussin -) 10 ml PO Q6H PRN PRN Reason: COUGH Last Admin: 10/05/19 11:01 Dose: 10 ml Heparin Sodium (Porcine) (Heparin -) 5,000 unit SQ BID [facility] Last Admin: 10/06/19 09:21 Dose: 5,000 unit Vancomycin HCl (Vancomycin (Pre-Docked)) 1,000 mg in 250 mls @ 166.667 mls/hr IVPB Q24H [facility]; Protocol Last Admin: 10/06/19 06:03 Dose: 166.667 mls/hr Levothyroxine Sodium (Synthroid -) 25 mcg PO DAILY@0700 [facility] Last Admin: 10/06/19 06:03 Dose: 25 mcg Loratadine (Claritin -) 10 mg PO DAILY [facility] Last Admin: 10/06/19 09:22 Dose: 10 mg Lorazepam (Ativan -) 1 mg PO TID PRN PRN Reason: ANXIETY Last Admin: 10/01/19 20:32 Dose: 1 mg Meclizine HCl (Antivert -) 25 mg PO TID PRN PRN Reason: VERTIGO Multivitamins/Minerals/Vitamin C (Tab-A-Vit -) 1 tab PO DAILY [facility] Last Admin: 10/06/19 09:22 Dose: 1 tab Nicotine (Nicoderm Patch -) 7 mg TD DAILY [facility] Last Admin: 10/06/19 09:22 Dose: Not Given Prednisone (Deltasone -) 20 mg PO DAILY [facility] Last Admin: 10/06/19 09:22 Dose: 20 mg Thiamine HCl (Vitamin B1 -) 100 mg PO DAILY [facility] Last Admin: 10/06/19 09:22 Dose: 100 mg - Objective Vital Signs: Vital Signs Temperature 98.3 F 10/06/19 10:00 Pulse Rate 89 10/06/19 10:00 Respiratory Rate 10/06/19 10:00 Blood Pressure 140/84 10/06/19 10:00 O2 Sat by Pulse Oximetry (%) 97 10/06/19 09:00 Constitutional: Yes: No Distress, Calm, Thin Cardiovascular: Yes: Regular Rate and Rhythm, S1, S2 Respiratory: Yes: Regular Gastrointestinal: Yes: Normal Bowel Sounds, Soft Genitourinary: Yes: WNL Musculoskeletal: Yes: WNL Extremities: Yes: WNL Edema: No Peripheral Pulses WNL: Yes Wound/Incision: Yes: Dressing Dry and Intact (right inguinal) Neurological: Yes: Alert, Oriented Psychiatric: Yes: Alert, Oriented Labs: CBC, BMP 10/04/19 12:30 10/05/19 07:25 INR, PTT INR 1.03 (0.83-1.09) 09/30/19 04:10 Problem List - Problems (1) Pneumonia Assessment/Plan: -Pulmonary on board -PO prednisone -Bronchodilators -IV abx -ID consult -Tussin -Cepacol Problems reviewed: Yes Code(s): J18.9 - PNEUMONIA, UNSPECIFIED ORGANISM (2) Inguinal hernia bilateral, non-recurrent Assessment/Plan: -Seen by surgery -Hernias without any obstruction -no surgical intervention at this time Problems reviewed: Yes Code(s): K40.20 - BI INGUINAL HERNIA, W/O OBST OR GANGRENE, NOT SPCF RECUR (3) Anemia Assessment/Plan: -repeat labs pending -Previously low in Iron% -Recheck Iron profile, B12 and stool OB Problems reviewed: Yes Code(s): D64.9 - ANEMIA, UNSPECIFIED (4) Hyponatremia Assessment/Plan: -Nephrology -chronically hyponatremic -repeat labs-Resolved Problems reviewed: Yes Code(s): E87.1 - HYPO-OSMOLALITY AND HYPONATREMIA (5) Vertigo Assessment/Plan: -Meclizine 25 mg po TID PRN -Loratadine 10 mg po daily Problems reviewed: Yes Code(s): R42 - DIZZINESS AND GIDDINESS (6) Inguinal abscess Assessment/Plan: -ID on board -IV abx -Cultures: Microbiology 09/30/19 04:10 Blood - Peripheral Venous Blood Culture - Final NO GROWTH AFTER 5 DAYS INCUBATION 09/30/19 04:10 Blood - Peripheral Venous Blood Culture - Final NO GROWTH AFTER 5 DAYS INCUBATION 10/02/19 12:30 Abscess Gram Stain - Final 10/02/19 12:30 Abscess Wound Culture - Preliminary Staphylococcus Coagulase Neg -afebrile -leukocytosis resolved -local wound care Problems reviewed: Yes Code(s): L02.214 - CUTANEOUS ABSCESS OF GROIN Assessment/Plan see problem list PT
--- NOTE | 2019-10-06 12:42 | PN ---
Progress Note (short form) - Note Progress Note: PULMONARY Still some shortness of breath. No cough or wheezing. No fevers recorded. Vital Signs Period Temp Pulse Resp BP Sys/Ballard Pulse Ox Last 24 Hr 97.6 F-98.4 F 88-97 18-20 108-145/65-90 97-98 Gen: NAD at rest Heart: RRR Lung: decreased breath sounds at the bases Abd: soft, nontender Ext: no edema CBC, BMP 10/04/19 12:30 10/05/19 07:25 Active Medications Acetaminophen (Tylenol -) 650 mg PO Q4H PRN PRN Reason: PAIN LEVEL 1-5 Last Admin: 10/05/19 12:08 Dose: 650 mg Albuterol/Ipratropium (Duoneb -) 1 amp NEB RTID [facility] Last Admin: 10/06/19 08:26 Dose: 1 amp Benzocaine/Menthol (Cepacol Lozenge -) 1 each MM PRN PRN PRN Reason: SORE THROAT Folic Acid (Folic Acid -) 1 mg PO DAILY [facility] Last Admin: 10/06/19 09:22 Dose: 1 mg Guaifenesin (Robitussin -) 10 ml PO Q6H PRN PRN Reason: COUGH Last Admin: 10/05/19 11:01 Dose: 10 ml Heparin Sodium (Porcine) (Heparin -) 5,000 unit SQ BID [facility] Last Admin: 10/06/19 09:21 Dose: 5,000 unit Vancomycin HCl (Vancomycin (Pre-Docked)) 1,000 mg in 250 mls @ 166.667 mls/hr IVPB Q24H [facility]; Protocol Last Admin: 10/06/19 06:03 Dose: 166.667 mls/hr Levothyroxine Sodium (Synthroid -) 25 mcg PO DAILY@0700 [facility] Last Admin: 10/06/19 06:03 Dose: 25 mcg Loratadine (Claritin -) 10 mg PO DAILY [facility] Last Admin: 10/06/19 09:22 Dose: 10 mg Lorazepam (Ativan -) 1 mg PO TID PRN PRN Reason: ANXIETY Last Admin: 10/01/19 20:32 Dose: 1 mg Meclizine HCl (Antivert -) 25 mg PO TID PRN PRN Reason: VERTIGO Multivitamins/Minerals/Vitamin C (Tab-A-Vit -) 1 tab PO DAILY [facility] Last Admin: 10/06/19 09:22 Dose: 1 tab Nicotine (Nicoderm Patch -) 7 mg TD DAILY [facility] Last Admin: 10/06/19 09:22 Dose: Not Given Prednisone (Deltasone -) 20 mg PO DAILY [facility] Last Admin: 10/06/19 09:22 Dose: 20 mg Thiamine HCl (Vitamin B1 -) 100 mg PO DAILY [facility] Last Admin: 10/06/19 09:22 Dose: 100 mg A/P Inguinal Abscess Atelectasis COPD Alcohol Abuse Schizophrenia Smoker - continue antibiotics for abscess - CXR findings more consistent with atelectasis - prednisone taper - inhaled bronchodilators - DVT prophylaxis - outpt PFTs - smoking cessation
[2019-10-07] MEDS: VANCOMYCIN 1 GRAM (PRE-DOCKED) 1,000 MG/250 ML BAG IVPB SCH (06:07)
[2019-10-07] MEDS: LEVOTHYROXINE NA 25 MCG TABLET (FP) PO SCH (06:07)
[2019-10-07] MEDS: ALBUTEROL SO4 2.5/IPRATROPIUM 0.5 INH SOL 3 ML VIAL.NEB. NEB SCH ×3 (07:15→20:12)
[2019-10-07] MEDS: LORATADINE 10 MG TABLET PO SCH (09:08)
[2019-10-07] MEDS: HEPARIN NA (PORCINE) 5,000 UNITS/ML 1ML VIAL SQ SCH ×2 (09:08→21:18)
[2019-10-07] MEDS: predniSONE 20 MG TABLET (UD) PO SCH (09:08)
[2019-10-07] MEDS: NICOTINE 7 MG/24 HOURS TOPICAL PATCH TD SCH (09:08)
[2019-10-07] MEDS: THIAMINE HCL 100 MG TABLET (FP) PO SCH (09:08)
[2019-10-07] MEDS: FOLIC ACID 1 MG TABLET (FP) PO SCH (09:08)
[2019-10-07] MEDS: MULTIVITAMINS (DAILY MVI) TABLET (FP) PO SCH (09:08)
--- NOTE | 2019-10-07 10:48 | PN ---
Progress Note (short form) - Note Progress Note: PULMONARY Denies shortness of breath but c/o nonproductive cough and nasal congestion. Vital Signs Period Temp Pulse Resp BP Sys/Ballard Pulse Ox Last 24 Hr 97.5 F-98.5 F 88-98 17-20 124-144/68-90 96 Gen: NAD at rest Heart: RRR Lung: decreased breath sounds at the bases Abd: soft, nontender Ext: no edema CBC, BMP 10/04/19 12:30 10/05/19 07:25 Active Medications Acetaminophen (Tylenol -) 650 mg PO Q4H PRN PRN Reason: PAIN LEVEL 1-5 Last Admin: 10/05/19 12:08 Dose: 650 mg Albuterol/Ipratropium (Duoneb -) 1 amp NEB RTID [facility] Last Admin: 10/07/19 07:15 Dose: 1 amp Benzocaine/Menthol (Cepacol Lozenge -) 1 each MM PRN PRN PRN Reason: SORE THROAT Folic Acid (Folic Acid -) 1 mg PO DAILY [facility] Last Admin: 10/07/19 09:08 Dose: 1 mg Guaifenesin (Robitussin -) 10 ml PO Q6H PRN PRN Reason: COUGH Last Admin: 10/05/19 11:01 Dose: 10 ml Heparin Sodium (Porcine) (Heparin -) 5,000 unit SQ BID [facility] Last Admin: 10/07/19 09:08 Dose: 5,000 unit Vancomycin HCl (Vancomycin (Pre-Docked)) 1,000 mg in 250 mls @ 166.667 mls/hr IVPB Q24H [facility]; Protocol Last Admin: 10/07/19 06:07 Dose: 166.667 mls/hr Levothyroxine Sodium (Synthroid -) 25 mcg PO DAILY@0700 [facility] Last Admin: 10/07/19 06:07 Dose: 25 mcg Loratadine (Claritin -) 10 mg PO DAILY [facility] Last Admin: 10/07/19 09:08 Dose: 10 mg Lorazepam (Ativan -) 1 mg PO TID PRN PRN Reason: ANXIETY Last Admin: 10/01/19 20:32 Dose: 1 mg Meclizine HCl (Antivert -) 25 mg PO TID PRN PRN Reason: VERTIGO Multivitamins/Minerals/Vitamin C (Tab-A-Vit -) 1 tab PO DAILY [facility] Last Admin: 10/07/19 09:08 Dose: 1 tab Nicotine (Nicoderm Patch -) 7 mg TD DAILY [facility] Last Admin: 10/07/19 09:08 Dose: Not Given Prednisone (Deltasone -) 20 mg PO DAILY [facility] Last Admin: 10/07/19 09:08 Dose: 20 mg Thiamine HCl (Vitamin B1 -) 100 mg PO DAILY [facility] Last Admin: 10/07/19 09:08 Dose: 100 mg A/P Inguinal Abscess Atelectasis COPD Alcohol Abuse Schizophrenia Smoker - continue antibiotics for abscess - CXR findings more consistent with atelectasis - will start nasal sprays - can d/c prednisone - inhaled bronchodilators - DVT prophylaxis - outpt PFTs - smoking cessation
--- NOTE | 2019-10-07 12:07 | PN ---
Progress Note, Physician Chief Complaint: Right inguinal abscess Alcohol withdrawal History of Present Illness: NAD sitting at the edge of the bed Denies any SOB Right inguinal pain improved Minimal drainage around the wound - Current Medication List Current Medications: Active Medications Acetaminophen (Tylenol -) 650 mg PO Q4H PRN PRN Reason: PAIN LEVEL 1-5 Last Admin: 10/05/19 12:08 Dose: 650 mg Albuterol/Ipratropium (Duoneb -) 1 amp NEB RTID [facility] Last Admin: 10/07/19 07:15 Dose: 1 amp Benzocaine/Menthol (Cepacol Lozenge -) 1 each MM PRN PRN PRN Reason: SORE THROAT Fluticasone Propionate (Flonase -) 2 spray NS BID [facility] Folic Acid (Folic Acid -) 1 mg PO DAILY [facility] Last Admin: 10/07/19 09:08 Dose: 1 mg Guaifenesin (Robitussin -) 10 ml PO Q6H PRN PRN Reason: COUGH Last Admin: 10/05/19 11:01 Dose: 10 ml Heparin Sodium (Porcine) (Heparin -) 5,000 unit SQ BID [facility] Last Admin: 10/07/19 09:08 Dose: 5,000 unit Vancomycin HCl (Vancomycin (Pre-Docked)) 1,000 mg in 250 mls @ 166.667 mls/hr IVPB Q24H [facility]; Protocol Last Admin: 10/07/19 06:07 Dose: 166.667 mls/hr Levothyroxine Sodium (Synthroid -) 25 mcg PO DAILY@0700 [facility] Last Admin: 10/07/19 06:07 Dose: 25 mcg Loratadine (Claritin -) 10 mg PO DAILY [facility] Last Admin: 10/07/19 09:08 Dose: 10 mg Lorazepam (Ativan -) 1 mg PO TID PRN PRN Reason: ANXIETY Last Admin: 10/01/19 20:32 Dose: 1 mg Meclizine HCl (Antivert -) 25 mg PO TID PRN PRN Reason: VERTIGO Multivitamins/Minerals/Vitamin C (Tab-A-Vit -) 1 tab PO DAILY [facility] Last Admin: 10/07/19 09:08 Dose: 1 tab Nicotine (Nicoderm Patch -) 7 mg TD DAILY [facility] Last Admin: 10/07/19 09:08 Dose: Not Given Thiamine HCl (Vitamin B1 -) 100 mg PO DAILY [facility] Last Admin: 10/07/19 09:08 Dose: 100 mg - Objective Vital Signs: Vital Signs Temperature 98.1 F 10/07/19 09:48 Pulse Rate 91 H 10/07/19 09:48 Respiratory Rate 20 10/07/19 09:48 Blood Pressure 144/90 10/07/19 09:48 O2 Sat by Pulse Oximetry (%) 96 10/07/19 09:00 Constitutional: Yes: No Distress, Calm, Thin Cardiovascular: Yes: Regular Rate and Rhythm Respiratory: Yes: Regular, CTA Bilaterally Gastrointestinal: Yes: Normal Bowel Sounds, Soft Genitourinary: Yes: WNL Musculoskeletal: Yes: WNL Extremities: Yes: WNL Edema: No Peripheral Pulses WNL: Yes Wound/Incision: Yes: Dressing Dry and Intact Neurological: Yes: Alert, Oriented Psychiatric: Yes: Alert, Oriented Labs: CBC, BMP 10/04/19 12:30 10/05/19 07:25 INR, PTT INR 1.03 (0.83-1.09) 09/30/19 04:10 Problem List - Problems (1) Pneumonia Assessment/Plan: -Pulmonary on board -PO prednisone -Bronchodilators -IV abx -ID consult -Tussin -Cepacol Problems reviewed: Yes Code(s): J18.9 - PNEUMONIA, UNSPECIFIED ORGANISM (2) Inguinal hernia bilateral, non-recurrent Assessment/Plan: -Seen by surgery -Hernias without any obstruction -no surgical intervention at this time Problems reviewed: Yes Code(s): K40.20 - BI INGUINAL HERNIA, W/O OBST OR GANGRENE, NOT SPCF RECUR (3) Anemia Assessment/Plan: -repeat labs H/h improved -Previously low in Iron% -APRIL+ B12 deficiency -Stool OB negative -B12 IM during hospital stay---> transition to B12 SL 2500 mcg daily -Injectafer once -Start Iron polysaccharide 1 tab po daily Problems reviewed: Yes Code(s): D64.9 - ANEMIA, UNSPECIFIED (4) Hyponatremia Assessment/Plan: -Nephrology -chronically hyponatremic -repeat labs-Resolved Problems reviewed: Yes Code(s): E87.1 - HYPO-OSMOLALITY AND HYPONATREMIA (5) Vertigo Assessment/Plan: -Meclizine 25 mg po TID PRN -Loratadine 10 mg po daily Problems reviewed: Yes Code(s): R42 - DIZZINESS AND GIDDINESS (6) Inguinal abscess Assessment/Plan: -ID on board -IV abx----> change to PO abx if ID agrees and D/C home -Cultures: Microbiology 09/30/19 04:10 Blood - Peripheral Venous Blood Culture - Final NO GROWTH AFTER 5 DAYS INCUBATION 09/30/19 04:10 Blood - Peripheral Venous Blood Culture - Final NO GROWTH AFTER 5 DAYS INCUBATION 10/02/19 12:30 Abscess Gram Stain - Final 10/02/19 12:30 Abscess Wound Culture - Preliminary Staphylococcus Coagulase Neg -afebrile -leukocytosis resolved -local wound care Problems reviewed: Yes Code(s): L02.214 - CUTANEOUS ABSCESS OF GROIN Assessment/Plan see problem list PT
--- NOTE | 2019-10-07 16:48 | PN ---
Progress Note, Physician History of Present Illness: AWAKE, ALERT IN BED NO C/O R INGUINAL PAIN AFEBRILE WBC IMPROVED WNL BC (-) WOUND C/S SCN - Current Medication List Current Medications: Active Medications Acetaminophen (Tylenol -) 650 mg PO Q4H PRN PRN Reason: PAIN LEVEL 1-5 Last Admin: 10/05/19 12:08 Dose: 650 mg Albuterol/Ipratropium (Duoneb -) 1 amp NEB RTID [facility] Last Admin: 10/07/19 14:21 Dose: 1 amp Benzocaine/Menthol (Cepacol Lozenge -) 1 each MM PRN PRN PRN Reason: SORE THROAT Cyanocobalamin (Vitamin B12 Injection -) 1,000 mcg IM DAILY [facility] Fluticasone Propionate (Flonase -) 2 spray NS BID [facility] Folic Acid (Folic Acid -) 1 mg PO DAILY [facility] Last Admin: 10/07/19 09:08 Dose: 1 mg Guaifenesin (Robitussin -) 10 ml PO Q6H PRN PRN Reason: COUGH Last Admin: 10/05/19 11:01 Dose: 10 ml Heparin Sodium (Porcine) (Heparin -) 5,000 unit SQ BID [facility] Last Admin: 10/07/19 09:08 Dose: 5,000 unit Vancomycin HCl (Vancomycin (Pre-Docked)) 1,000 mg in 250 mls @ 166.667 mls/hr IVPB Q24H [facility]; Protocol Last Admin: 10/07/19 06:07 Dose: 166.667 mls/hr Ferric Carboxymaltose 750 mg/ (Sodium Chloride) 265 mls @ 530 mls/hr IVPB ONCE ONE Stop: 10/07/19 17:29 Levothyroxine Sodium (Synthroid -) 25 mcg PO DAILY@0700 [facility] Last Admin: 10/07/19 06:07 Dose: 25 mcg Loratadine (Claritin -) 10 mg PO DAILY [facility] Last Admin: 10/07/19 09:08 Dose: 10 mg Lorazepam (Ativan -) 1 mg PO TID PRN PRN Reason: ANXIETY Last Admin: 10/01/19 20:32 Dose: 1 mg Meclizine HCl (Antivert -) 25 mg PO TID PRN PRN Reason: VERTIGO Multivitamins/Minerals/Vitamin C (Tab-A-Vit -) 1 tab PO DAILY [facility] Last Admin: 10/07/19 09:08 Dose: 1 tab Nicotine (Nicoderm Patch -) 7 mg TD DAILY [facility] Last Admin: 10/07/19 09:08 Dose: Not Given Polysaccharide Iron Complex (Niferex-150 -) 150 mg PO DAILY [facility] Thiamine HCl (Vitamin B1 -) 100 mg PO DAILY [facility] Last Admin: 10/07/19 09:08 Dose: 100 mg - Objective Vital Signs: Vital Signs Temperature 97.8 F 10/07/19 14:56 Pulse Rate 88 10/07/19 14:56 Respiratory Rate 10/07/19 14:56 Blood Pressure 135/79 10/07/19 14:56 O2 Sat by Pulse Oximetry (%) 96 10/07/19 09:00 Constitutional: Yes: No Distress Cardiovascular: Yes: Regular Rate and Rhythm, S1, S2 Respiratory: Yes: CTA Bilaterally Gastrointestinal: Yes: Normal Bowel Sounds, Soft. No: Tenderness Integumentary: Yes: Other (ERYTHEMA/ TENDERNESS R INGUINAL AREA RESOLVED. SHALLOW ULCER W/O DRAINAGE) Labs: CBC, BMP 10/04/19 12:30 10/05/19 07:25 INR, PTT INR 1.03 (0.83-1.09) 09/30/19 04:10 Assessment/Plan S/P DRAINAGE R INGUINAL SOFT TISSUE ABSCESS CELLULITIS R INGUINAL AREA RESOLVED SUBSTITUTE AUGMENTIN 875 MG PO BID X 7D LOCAL WOUND CARE
[2019-10-07] MEDS ORDERED: FERRIC CARBOXYMALTOSE 750 MG in SODIUM CHLORIDE 250 ML IVPB ONE (17:00)
[2019-10-07] MEDS: AMOX TR/POT CLAV 875MG/125MG TABLETS (FP) PO SCH (17:06)
[2019-10-07] MEDS: FLUTICASONE PROP 0.05% 16 GM NASAL SPRAY NS SCH ×2 (17:06→21:22)
[2019-10-07] MEDS: CYANOCOBALAMIN (VITAMIN B-12) 1000 MCG/1 ML VIAL IM SCH (17:10)
[2019-10-08] MEDS: LEVOTHYROXINE NA 25 MCG TABLET (FP) PO SCH (06:21)
[2019-10-08] MEDS: ALBUTEROL SO4 2.5/IPRATROPIUM 0.5 INH SOL 3 ML VIAL.NEB. NEB SCH (07:38)
[2019-10-08] MEDS: AMOX TR/POT CLAV 875MG/125MG TABLETS (FP) PO SCH (08:39)
[2019-10-08 09:14] VITALS: BP 121/75; PULSE 93; TEMP 98.1
[2019-10-08] MEDS: FLUTICASONE PROP 0.05% 16 GM NASAL SPRAY NS SCH (09:33)
[2019-10-08] MEDS: LORATADINE 10 MG TABLET PO SCH (09:33)
[2019-10-08] MEDS: HEPARIN NA (PORCINE) 5,000 UNITS/ML 1ML VIAL SQ SCH (09:33)
[2019-10-08] MEDS: MULTIVITAMINS (DAILY MVI) TABLET (FP) PO SCH (09:33)
[2019-10-08] MEDS: FOLIC ACID 1 MG TABLET (FP) PO SCH (09:33)
[2019-10-08] MEDS: NICOTINE 7 MG/24 HOURS TOPICAL PATCH TD SCH (09:34)
[2019-10-08] MEDS: THIAMINE HCL 100 MG TABLET (FP) PO SCH (09:34)
[2019-10-08] MEDS ORDERED: IRON POLYSACCHARIDES 150 MG CAPSULE PO SCH (10:00)
--- NOTE | 2019-10-08 10:29 | DS ---
Physical Examination Vital Signs: Vital Signs Temperature 98.1 F 10/08/19 09:14 Pulse Rate 93 H 10/08/19 09:14 Respiratory Rate 20 10/08/19 09:14 Blood Pressure 121/75 10/08/19 09:14 O2 Sat by Pulse Oximetry (%) 97 10/07/19 21:00 Findings/Remarks: Laboratory Last Values WBC 9.3 K/mm3 (4.0-10.0) 10/04/19 12:30 RBC 3.93 M/mm3 (4.00-5.60) L 10/04/19 12:30 Hgb 12.3 GM/dL (11.7-16.9) 10/04/19 12:30 Hct 36.9 % (35.4-49) D 10/04/19 12:30 MCV 94.0 fl (80-96) 10/04/19 12:30 MCH 31.2 pg (25.7-33.7) 10/04/19 12:30 MCHC 33.2 g/dl (32.0-35.9) 10/04/19 12:30 RDW 13.0 % (11.9-15.9) 10/04/19 12:30 Plt Count 351 K/MM3 (134-434) D 10/04/19 12:30 MPV 7.9 fl (7.5-11.1) 10/04/19 12:30 Absolute Neuts (auto) 7.3 K/mm3 (1.5-8.0) 10/04/19 12:30 Neutrophils % 78.9 % (42.8-82.8) 10/04/19 12:30 Lymphocytes % 14.1 % (8-40) D 10/04/19 12:30 Monocytes % 5.5 % (3.8-10.2) 10/04/19 12:30 Eosinophils % 0.9 % (0-4.5) D 10/04/19 12:30 Basophils % 0.6 % (0-2.0) 10/04/19 12:30 Nucleated RBC % 0 % (0-0) 10/04/19 12:30 PT with INR 12.20 SEC (9.7-13.0) 09/30/19 04:10 INR 1.03 (0.83-1.09) 09/30/19 04:10 PTT (Actin FS) 36.5 SECONDS (25.2-36.5) 09/30/19 04:10 Sodium 138 mmol/L (136-145) 10/05/19 07:25 Potassium 3.6 mmol/L (3.5-5.1) 10/05/19 07:25 Chloride 102 mmol/L (98-107) 10/05/19 07:25 Carbon Dioxide 30 mmol/L (21-32) 10/05/19 07:25 Anion Gap 6 MMOL/L (8-16) L 10/05/19 07:25 BUN 9.2 mg/dL (7-18) 10/05/19 07:25 Creatinine 0.7 mg/dL (0.55-1.3) 10/05/19 07:25 Est GFR (CKD-EPI)AfAm 123.13 10/05/19 07:25 Est GFR (CKD-EPI)NonAf 106.24 10/05/19 07:25 POC Glucometer 94 UNITS (80-120) 10/06/19 05:45 Random Glucose 85 mg/dL (74-106) 10/05/19 07:25 Hemoglobin A1c % 4.5 % (4.2-6.3) 10/05/19 07:25 Calcium 8.7 mg/dL (8.5-10.1) 10/05/19 07:25 Phosphorus 2.8 mg/dL (2.5-4.9) 10/01/19 07:15 Magnesium 2.4 mg/dL (1.8-2.4) 10/01/19 07:15 Iron 26 ug/dL (50-175) L 10/05/19 07:25 TIBC 311 ug/dL (250-450) 10/05/19 07:25 Iron Saturation 8 % (17.5-39) L 10/05/19 07:25 Unsaturated IBC 285 ug/dL (200-275) H 10/05/19 07:25 Ferritin 36.2 ng/ml (8-388) 10/05/19 07:25 Total Bilirubin 0.3 mg/dL (0.2-1) 10/05/19 07:25 AST 13 U/L (15-37) L 10/05/19 07:25 ALT 21 U/L (13-61) 10/05/19 07:25 Alkaline Phosphatase 59 U/L (45-117) 10/05/19 07:25 Total Protein 5.9 g/dl (6.4-8.2) L 10/05/19 07:25 Albumin 3.0 g/dl (3.4-5.0) L 10/05/19 07:25 Vitamin B12 218 pg/ml (193-986) 10/05/19 07:25 TSH 3.75 uIU/ml (0.358-3.74) H D 10/01/19 17:35 Free T4 0.73 ng/dl (0.76-1.16) L 10/01/19 17:35 Urine Color Hugo 09/30/19 17:49 Urine Appearance Clear 09/30/19 17:49 Urine pH 6.5 (5.0-8.0) 09/30/19 17:49 Ur Specific [place] 1.011 (1.010-1.035) 09/30/19 17:49 Urine Protein Negative (NEGATIVE) 09/30/19 17:49 Urine Glucose (UA) Negative (NEGATIVE) 09/30/19 17:49 Urine Ketones 1+ (NEGATIVE) H 09/30/19 17:49 Urine Blood Negative (NEGATIVE) 09/30/19 17:49 Urine Nitrite Negative (NEGATIVE) 09/30/19 17:49 Urine Bilirubin Negative (NEGATIVE) 09/30/19 17:49 Urine Urobilinogen 1.0 mg/dL (0.2-1.0) 09/30/19 17:49 Ur Leukocyte Esterase Negative (NEGATIVE) 09/30/19 17:49 Stool Occult Blood Negative (NEGATIVE) 10/04/19 13:00 Vancomycin Pre-Dose 22.6 ug/ml (18-26) 10/02/19 13:00 Alcohol, Quantitative < 3 mg/dL (0.0-5.0) 09/30/19 12:40 Blood Type A POSITIVE 09/30/19 04:10 Antibody Screen Negative 09/30/19 04:10 Active Medications Generic Name Dose Route Start Last Admin Trade Name Freq PRN Reason Stop Dose Admin Acetaminophen 650 mg 09/30/19 09:54 10/05/19 12:08 Tylenol - PO 650 mg Q4H PRN Administration PAIN LEVEL 1-5 Albuterol/Ipratropium 1 amp 09/30/19 20:00 10/08/19 07:38 Duoneb - NEB 1 amp RTID [facility] Administration Amoxicillin/Clavulanate Potassium 1 tab 10/07/19 17:30 10/08/19 08:39 Augmentin - 875mg Tablet PO 1 tab BID@0800,1730 [facility] Administration Benzocaine/Menthol 1 each 10/04/19 11:31 Cepacol Lozenge - MM PRN PRN SORE THROAT Cyanocobalamin 1,000 mcg 10/07/19 16:45 10/08/19 10:56 Vitamin B12 Injection - IM 1,000 mcg DAILY [facility] Administration Fluticasone Propionate 2 spray 10/07/19 12:00 10/08/19 09:33 Flonase - NS 2 spray BID [facility] Administration Folic Acid 1 mg 10/01/19 10:00 10/08/19 09:33 Folic Acid - PO 1 mg DAILY [facility] Administration Guaifenesin 10 ml 10/01/19 20:36 10/05/19 11:01 Robitussin - PO 10 ml Q6H PRN Administration COUGH Heparin Sodium (Porcine) 5,000 unit 09/30/19 10:00 10/08/19 09:33 Heparin - SQ 5,000 unit BID [facility] Administration Levothyroxine Sodium 25 mcg 10/04/19 07:00 10/08/19 06:21 Synthroid - PO 25 mcg DAILY@0700 [facility] Administration Loratadine 10 mg 10/05/19 11:15 10/08/19 09:33 Claritin - PO 10 mg DAILY [facility] Administration Lorazepam 1 mg 09/30/19 10:26 10/01/19 20:32 Ativan - PO 1 mg TID PRN Administration ANXIETY Meclizine HCl 25 mg 10/04/19 18:34 Antivert - PO TID PRN [facility] Multivitamins/Minerals/Vitamin C 1 tab 10/01/19 10:00 10/08/19 09:33 Tab-A-Vit - PO 1 tab DAILY [facility] Administration Nicotine 7 mg 09/30/19 10:30 10/08/19 09:34 Nicoderm Patch - TD Not Given DAILY [facility] Polysaccharide Iron Complex 150 mg 10/08/19 10:00 10/08/19 09:33 Niferex-150 - PO 150 mg DAILY [facility] Administration Thiamine HCl 100 mg 10/01/19 10:00 10/08/19 09:34 Vitamin B1 - PO 100 mg DAILY [facility] Administration Microbiology 10/02/19 12:30 Abscess Gram Stain - Final 10/02/19 12:30 Abscess Wound Culture - Final Staphylococcus Coagulase Neg 10/04/19 13:00 Urine For Antigen Detection Legionella Antigen - Final 10/04/19 13:00 Urine For Antigen Detection Streptococcus pneumoniae Antigen (M - Final 09/30/19 04:10 Blood - Peripheral Venous Blood Culture - Final NO GROWTH AFTER 5 DAYS INCUBATION 09/30/19 04:10 Blood - Peripheral Venous Blood Culture - Final NO GROWTH AFTER 5 DAYS INCUBATION Constitutional: Yes: No Distress, Calm Eyes: Yes: Conjunctiva Clear HENT: Yes: Atraumatic Cardiovascular: Yes: Regular Rate and Rhythm Respiratory: Yes: Regular, CTA Bilaterally Gastrointestinal: Yes: Normal Bowel Sounds, Soft Musculoskeletal: Yes: WNL Extremities: Yes: WNL Edema: No Wound/Incision: Yes: Dressing Dry and Intact Neurological: Yes: Alert, Oriented Psychiatric: Yes: Alert, Oriented Labs: CBC, BMP 10/04/19 12:30 10/05/19 07:25 Discharge Summary Problems reviewed: Yes Reason For Visit: ABSCESS,ALCOHOL USE DISORDER,COPD Current Active Problems Abscess (Acute) Alcohol use disorder (Acute) Anemia (Acute) Atelectasis of both lungs (Acute) COPD (chronic obstructive pulmonary disease) (Acute) Hypothyroidism, unspecified (Acute) Inguinal abscess (Acute) Inguinal hernia bilateral, non-recurrent (Acute) Pneumonia (Acute) Rectal bleeding (Acute) Vertigo (Acute) Hospital Course: Patient is 54 y/o male with past medical history of COPD and Alcohol Dependence. He presented to ER with complaints of pain and swelling to R groin for 4 days. He is not sure how this began but pain and swelling increased and came to ER. Patient is also complaining of SOB due to his history of COPD. He is currently undomiciled and is not taking medication for his COPD. He does admit to alcohol dependence and drinks 6 beers daily. He also states having rectal bleeding with his BM 2 days ago. Denies chest pain, palpitations, or dizziness. Patient was evaluated by infectious disease and was started on IV antibiotics. Patient responded well to IV antibiotics and then was changed to oral medication for discharge. During the hospital stay you where found to have hypothyroidism and started on Levothyroxine. You were evaluated by surgery for R inguinal hernia and no surgical intervention is needed at present. Condition: Stable - Instructions Diet, Activity, Other Instructions: Follow up with PCP 2 weeks after discharge follow up with Endocrinology Dr Alvarado 4 weeks after discharge to monitor Thyroid FUnction continue with Augmentin twice a day until completed low Na diet return to ER if develop severe pain, respiratory distress, chest pain Referrals: Dany Alvarez MD [Non Staff, Medical] - Jorge A Alvarado MD [Staff Physician] - Disposition: HOME - Home Medications Comprehensive Discharge Medication List: Ambulatory Orders NK [No Known Home Medication] 09/30/19
[2019-10-08] MEDS: CYANOCOBALAMIN (VITAMIN B-12) 1000 MCG/1 ML VIAL IM SCH (10:56)
== END 2019-10-08 14:20 | disposition home or self-care (01) | DRG 364 ==
LOC: JER 00:36 → JERBED 09:04 → J6S 10:11
PROVIDERS: ADMIT Family Medicine; ATTEND Family Medicine
PROC: 0Y950ZZ Drainage of Right Inguinal Region, Open Approach (ICD-10-PCS; principal; 2019-09-30)
DX: L02.214 Cutaneous abscess of groin (principal); J18.9 Pneumonia, unspecified organism; F20.9 Schizophrenia, unspecified; E87.1 Hypo-osmolality and hyponatremia; J44.9 Chronic obstructive pulmonary disease, unspecified; K62.5 Hemorrhage of anus and rectum; J98.11 Atelectasis; E03.9 Hypothyroidism, unspecified; K40.90 Unilateral inguinal hernia, without obstruction or gangrene, not specified as recurrent; F17.210 Nicotine dependence, cigarettes, uncomplicated; D64.9 Anemia, unspecified; R31.29 Other microscopic hematuria; F10.230 Alcohol dependence with withdrawal, uncomplicated; R42 Dizziness and giddiness; Z59.0 Homelessness; E53.8 Deficiency of other specified B group vitamins
CPT/HCPCS: 36415; 71045-TC-FY; 74177-TC; 76705-TC; 80053; 80307; 81003; 82272; 82607; 82728; 82962; 83036; 83540; 83550; 83735; 84100; 84439; 84443; 85025; 85027; 85610; 85730; 86850; 86900; 86901; 87040; 87070; 87077; 87205; 87899; 93005; 93010; 94640; 97116-GP; 97161-GP; 99285-25; G0480; J1439; J1644; Q9967

== ENCOUNTER 2019-10-13 23:10 | Inpatient (IN) | payer OTHER ==
--- NOTE | 2019-10-14 02:06 | PDOC ---
Attending Attestation - Resident Resident Name: Wesley Blanton - ED Attending Attestation I have performed the following: I have examined & evaluated the patient, The case was reviewed & discussed with the resident, I agree w/resident's findings & plan - HPI HPI: 10/14/19 06:43 see resident hpi - Physicial Exam PE: 10/14/19 06:43 see resident exam - Medical Decision Making 10/14/19 06:43 54-year-old male, undomiciled complaining of black stools and intermittent abdominal pain CT scan consistent with mild diverticulitis Patient also mildly tremulous with a history of alcohol dependence Cipro/Flagyl administered We will admit to hospitalist service for observation
[2019-10-14] MEDS ORDERED: SODIUM CHLORIDE 1,000 ML IV STA (02:12)
--- NOTE | 2019-10-14 02:12 | PDOC ---
History of Present Illness - General Chief Complaint: Pain, Acute Stated Complaint: RECTAL BLEED Time Seen by Provider: 10/14/19 01:37 History Source: Patient Exam Limitations: Clinical Condition - History of Present Illness Initial Comments: Salazar Alvarez is a 54 yo Homeless M w a hx of COPD and Alcohol Dependence, recent admission for groin abscess, who presents stating he has lower abdominal pain and has had very dark stools. He states his lower abdominal pain has not subsided and he presents because it is bothering him too much. He reports that he is worried he is becoming anemic because he thinks he is bleeding from his rectum. He endorses daily alcohol consumption around 10 beers a day or whatever he can get hold of. He states he has had diverticulitis in the past and feels like his diverticulitis is acting up because his lower abdomen hurts. PCP: Kalyn/Francesca PSH: Hernia Repair - right inguinal Social Hx: Homeless. Uses alcohol daily. Allergies: Aspirin, phenobarbital Past History - Past Medical History Allergies/Adverse Reactions: Allergies Allergy/AdvReac Type Severity Reaction Status Date / Time aspirin Allergy Unknown Verified 10/13/19 23:32 phenobarbital Allergy Unknown Verified 10/13/19 23:32 Home Medications: Ambulatory Orders Amox-Tr/K Cl [Augmentin 875-125mg Tablet -] 1 tab PO BID@0800,1730 #12 tablet Fluticasone Prop 0.05% Nasal [Flonase -] 2 spray NS BID #1 spray 10/08/19 Folic Acid - 1 mg PO DAILY #30 tablet 10/08/19 Iron Polysaccharides [Niferex-150 -] 150 mg PO DAILY #30 capsule 10/08/19 Levothyroxine [Synthroid -] 25 mcg PO DAILY@0700 #30 tablet 10/08/19 Loratadine [Claritin -] 10 mg PO DAILY #30 tablet 10/08/19 Meclizine HCl [Antivert -] 25 mg PO TID PRN #60 tablet 10/08/19 Multivitamins [Multivit ([facility] Formulary)] 1 tab PO DAILY #30 tab 10/08/19 Nicotine Patch [Nicoderm Patch -] 7 mg TD DAILY #30 patch 10/08/19 Pantoprazole Sodium [Protonix -] 40 mg PO DAILY #30 tablet.ec 10/08/19 Thiamine HCl [Vitamin B1 -] 100 mg PO DAILY #30 tablet 10/08/19 predniSONE [Deltasone -] 20 mg PO DAILY #30 tablet 10/08/19 Anemia: Yes Asthma: No Cancer: No Cardiac Disorders: No CVA: No COPD: Yes CHF: No Dementia: No Diabetes: No GI Disorders: Yes (colitis, enlarged liver) Disorders: No HTN: No Hypercholesterolemia: No Liver Disease: No Seizures: No Thyroid Disease: No - Surgical History Abdominal Surgery: Yes (hernia bilat) Appendectomy: No Cardiac Surgery: No Cholecystectomy: No Lung Surgery: No Neurologic Surgery: No Orthopedic Surgery: No - Immunization History TDAP Vaccination: Yes Immunization Up to Date: Yes - Psycho Social/Smoking Cessation Hx Smoking History: Current every day smoker Have you smoked in the past 12 months: Yes Number of Cigarettes Smoked Daily: 20 Information on smoking cessation initiated: No 'Breaking Loose' booklet given: 11/02/18 Hx Alcohol Use: Yes Drug/Substance Use Hx: No Substance Use Type: Alcohol Hx Substance Use Treatment: No Review of Systems - Review of Systems Able to Perform ROS?: Yes Comments:: CONSTITUTIONAL: Absent: fever, no chills, no fatigue EYES: Absent: visual changes ENT: Absent: ear pain, no sore throat CARDIOVASCULAR: Absent: chest pain, no palpitations RESPIRATORY: Absent: cough, no SOB GI: Present: Abdominal pain, diarrhea Absent: no nausea, no vomiting, no constipation GENITOURINARY: Absent: dysuria, no frequency, no hematuria MUSKULOSKELETAL: Absent: back pain, no arthralgia, no myalgia SKIN: Present: rash NEURO: Absent: headache *Physical Exam - Vital Signs Last Vital Signs Temp Pulse Resp BP Pulse Ox 97.7 F 95 H 17 121/80 96 10/13/19 23:28 10/13/19 23:28 10/13/19 23:28 10/13/19 23:28 10/13/19 23:28 - Physical Exam GENERAL: Undomiciled. No apparent distress. HEENT: Normocephalic, atraumatic. PERRL, EOM intact. CARDIOVASCULAR: Normal S1, S2. Regular rate and rhythm. PULMONARY: No evidence of respiratory distress. Lungs clear to auscultation bilaterally. No wheezing, rales or rhonchi. ABDOMEN: The lower abdomen has a diffuse rash. There is TP in the lower abdomen. RECTAL: There are multiple external hemorroids which are painful. None appear swollen or thrombosed. EXTREMITIES: Normal ROM in all four extremities. No gross deformities. SKIN: Warm, dry. Patient has a diffuse maculopapular rash over his back, abdomen, buttocks, and legs which blanches and is pruritic NEUROLOGICAL: No focal neurological deficits. ED Treatment Course - LABORATORY CBC & Chemistry Diagram: 10/14/19 03:00 10/14/19 03:00 Medical Decision Making - Medical Decision Making Salazar Alvarez is a 54 yo Homeless M w a hx of COPD and Alcohol Dependence, recent admission for groin abscess, who presents stating he has lower abdominal pain and has had very dark stools. He states his lower abdominal pain has not subsided and he presents because it is bothering him too much. He reports that he is worried he is becoming anemic because he thinks he is bleeding from his rectum. He endorses daily alcohol consumption around 10 beers a day or whatever he can get hold of. He states he has had diverticulitis in the past and feels like his diverticulitis is acting up because his lower abdomen hurts. Vital Signs Temp Pulse Resp BP Pulse Ox 97.7 F 95 H 17 121/80 96 10/13/19 23:28 10/13/19 23:28 10/13/19 23:28 10/13/19 23:28 10/13/19 23:28 DDx IBNLT: GI bleed, UTI, anemia, lectrolyte/metabolic disturbance Plan: Labs, urine, stool occult, supportive care, re-assess. Labs: Leukocytosis with left shift. CLEARED FOR CONTRAST CTAP: Acute sigmoid diverticulitis - NPO - Cipro/flagyl Dispo: Admission to hospital as patient has a poor social situation Discharge - Discharge Information Problems reviewed: Yes Clinical Impression/Diagnosis: Diverticulitis, LLQ abdominal pain Condition: Stable - Admission Yes - Follow up/Referral - Patient Discharge Instructions - Post Discharge Activity
[2019-10-14] MEDS ORDERED: FAMOTIDINE 20 MG/50 ML IVPB 20 MG/50 ML MG IVPB ONE ×2 (02:13→03:15)
[2019-10-14] MEDS ORDERED: MAG HYDROX/AL HYDROX/SIMETH 30 ML UNIT-DOSE CUP PO ONE (02:14)
[2019-10-14] MEDS ORDERED: MAG HYDROX/AL HYDROX/SIMETH 30 ML UNIT-DOSE CUP ONE (03:15)
[2019-10-14 03:36] LABS: URINE APPEARANCE CLEAR; URINE BILIRUBIN NEGATIVE (NEGATIVE); URINE COLOR YELLOW; URINE GLUCOSE (UA) NEGATIVE (NEGATIVE); URINE KETONE NEGATIVE (NEGATIVE); URINE LEUK ESTERASE NEGATIVE (NEGATIVE); URINE NITRITE NEGATIVE (NEGATIVE); URINE PROTEIN NEGATIVE (NEGATIVE); URINE UROBILINOGEN 0.2 mg/dL (0.2-1.0)
[2019-10-14 04:03] LABS: BASO % 0.7 % (0-2.0); EOS % 1.1 % (0-4.5); HEMOGLOBIN 13.2 GM/dL (11.7-16.9); LYMPH % 12.3 % (8-40); MCH 31.3 pg (25.7-33.7); MCHC 33.7 g/dl (32.0-35.9); MEAN CELL VOLUME 92.9 fl (80-96); MEAN PLT VOLUME 7.1 fl (7.5-11.1); MONO % 8.8 % (3.8-10.2); NEUT % 77.1 % (42.8-82.8); PLATELET COUNT 582 K/MM3 (134-434); RDW 13.5 % (11.9-15.9); WHITE BLOOD COUNT 19.9 K/mm3 (4.0-10.0)
[2019-10-14 04:29] LABS: INR 1.07 (0.83-1.09); PROTHROMBIN TIME (PATIENT) 12.6 SEC (9.7-13.0)
[2019-10-14 04:31] LABS: ACTIVATED PTT 38.2 SECONDS (25.2-36.5)
[2019-10-14] MEDS ORDERED: CIPROFLOXACIN 400 MG/D5W 400 MG/200 ML IVPB IVPB ONE (05:52)
[2019-10-14 06:13] LABS: ALBUMIN 3.6 g/dl (3.4-5.0); BILIRUBIN,TOTAL 0.4 mg/dL (0.2-1); BLOOD UREA NITROGEN 4.3 mg/dL (7-18); CREATININE 0.5 mg/dL (0.55-1.3); POTASSIUM 4.8 mmol/L (3.5-5.1); TOT PROT 7.3 g/dl (6.4-8.2)
[2019-10-14] MEDS ORDERED: LORazepam 2 MG/ML SDV VIAL ONE (06:51)
[2019-10-14] MEDS ORDERED: MECLIZINE HCL 25 MG TABLET (FP) PO PRN (09:38)
[2019-10-14] MEDS ORDERED: predniSONE 20 MG TABLET (UD) ONE (10:21)
[2019-10-14] MEDS ORDERED: PANTOPRAZOLE 40 MG TABLET ONE (10:22)
[2019-10-14] MEDS ORDERED: LORATADINE 10 MG TABLET ONE (10:22)
[2019-10-14] MEDS ORDERED: FOLIC ACID 1 MG TABLET (FP) ONE (10:22)
[2019-10-14] MEDS ORDERED: ACETAMINOPHEN 325 MG TABLET (FP) ONE (10:22)
[2019-10-14] MEDS ORDERED: THIAMINE HCL 100 MG TABLET (FP) ONE (10:22)
[2019-10-14] MEDS: ACETAMINOPHEN 325 MG TABLET (FP) PO PRN (10:30)
[2019-10-14] MEDS: LORATADINE 10 MG TABLET PO SCH (10:31)
[2019-10-14] MEDS: PANTOPRAZOLE 40 MG TABLET PO SCH (10:32)
[2019-10-14] MEDS: FOLIC ACID 1 MG TABLET (FP) PO SCH (10:32)
[2019-10-14] MEDS: predniSONE 20 MG TABLET (UD) PO SCH (10:32)
[2019-10-14] MEDS: THIAMINE HCL 100 MG TABLET (FP) PO SCH (10:34)
--- NOTE | 2019-10-14 10:40 | HP ---
Admitting History and Physical - Admission Chief Complaint: Abdominal Pain, Dark stools History of Present Illness: Patient is a 54 y/o male with past medical history of COPD and Alcohol Dependence. Patient presented to ER with complaints of lower abdominal pain accompanied with dark stools. Patient admits to daily alcohol use of 4-5 beers/ day. Denies nausea, vomiting, chest pain, SOB, or palpitations. History Source: Patient Limitations to Obtaining History: No Limitations - Past Medical History Pulmonary: Yes: COPD Gastrointestinal: Yes: Diverticulitis (10/27) Hepatobiliary: Yes: Other (alcoholic liver disease) Renal/: Yes: Other (hyponatremia) Heme/Onc: Yes: Anemia Infectious Disease: Yes: Other (chronic folliculitis/fungal skin disease?) Psych: Yes: Addictions (alcohol and cigarettes), Schizophrenia Musculoskeletal: Yes: Chronic low back pain Endocrine: Yes: Other (Hyponatremia) Dermatology: Yes: Other (chronic pruritic scaly rash lower abdomen, inguinal area and lower extremities ) - Past Surgical History Past Surgical History: Yes: Hernia Repair (right inguinal hernia repair). 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 History of Recent Travel: No Home Medications - Allergies Allergies/Adverse Reactions: Allergies Allergy/AdvReac Type Severity Reaction Status Date / Time aspirin Allergy Unknown Verified 10/13/19 23:32 phenobarbital Allergy Unknown Verified 10/13/19 23:32 - Home Medications Home Medications: Ambulatory Orders Amox-Tr/K Cl [Augmentin 875-125mg Tablet -] 1 tab PO BID@0800,1730 #12 tablet Fluticasone Prop 0.05% Nasal [Flonase -] 2 spray NS BID #1 spray 10/08/19 Folic Acid - 1 mg PO DAILY #30 tablet 10/08/19 Iron Polysaccharides [Niferex-150 -] 150 mg PO DAILY #30 capsule 10/08/19 Levothyroxine [Synthroid -] 25 mcg PO DAILY@0700 #30 tablet 01/31/20 Loratadine [Claritin -] 10 mg PO DAILY #30 tablet 10/08/19 Meclizine HCl [Antivert -] 25 mg PO TID PRN #60 tablet 10/08/19 Multivitamins [Multivit ([facility] Formul[facility])] 1 tab PO DAILY #30 tab 10/08/19 Nicotine Patch [Nicoderm Patch -] 7 mg TD DAILY #30 patch 10/08/19 Pantoprazole Sodium [Protonix -] 40 mg PO DAILY #30 tablet.ec 10/08/19 Thiamine HCl [Vitamin B1 -] 100 mg PO DAILY #30 tablet 10/08/19 predniSONE [Deltasone -] 20 mg PO DAILY #30 tablet 10/08/19 Review of Systems - Review of Systems Constitutional: reports: Weakness Eyes: reports: No Symptoms HENT: reports: No Symptoms Neck: reports: No Symptoms Cardiovascular: reports: No Symptoms Respiratory: reports: Cough Gastrointestinal: reports: Abdominal Pain, Melena Genitourinary: reports: No Symptoms Breasts: reports: No Symptoms Reported Musculoskeletal: reports: No Symptoms Integumentary: reports: No Symptoms Neurological: reports: No Symptoms Endocrine: reports: No Symptoms Hematology/Lymphatic: reports: No Symptoms Psychiatric: reports: No Symptoms Physical Examination Vital Signs: Vital Signs Temperature 99.7 F H 10/14/19 09:14 Pulse Rate 125 H 10/14/19 09:14 Respiratory Rate 20 10/14/19 09:14 Blood Pressure 110/74 10/14/19 09:14 O2 Sat by Pulse Oximetry (%) 97 10/14/19 09:14 Constitutional: Yes: No Distress, Calm Eyes: Yes: Conjunctiva Clear HENT: Yes: Atraumatic Cardiovascular: Yes: Regular Rate and Rhythm Respiratory: Yes: Regular, CTA Bilaterally Gastrointestinal: Yes: Normal Bowel Sounds, Soft, Tenderness (lower abdomen) Musculoskeletal: Yes: WNL Extremities: Yes: WNL Edema: No Wound/Incision: Yes: Dressing Dry and Intact (R groin) Neurological: Yes: Alert, Oriented Psychiatric: Yes: Alert, Oriented Labs: CBC, BMP 10/14/19 03:00 10/14/19 03:00 Problem List - Problems (1) Diverticulitis Assessment/Plan: -GI consult -received Metronidazole and Cipro in ER -leukocytosis -febrile -CTAP shows findings consistent with acute sigmoid diverticulitis without abscess formation -IV hydration -NPO -Stool OB neg Code(s): K57.92 - DVTRCLI OF INTEST, PART UNSP, W/O PERF OR ABSCESS W/O BLEED (2) Abdominal pain Assessment/Plan: -GI consult -received Metronidazole and Cipro in ER -leukocytosis -febrile -CTAP shows findings consistent with acute sigmoid diverticulitis without abscess formation -IV hydration -NPO Code(s): R10.9 - UNSPECIFIED ABDOMINAL PAIN Qualifiers: Abdominal location: lower abdomen, unspecified Qualified Code(s): R10.30 - Lower abdominal pain, unspecified (3) Alcohol dependence Assessment/Plan: -Dr Aviles consult -Ativan prn for anxiety/agitation -Thiamine, MVI, Folic Acid -fall precaution -seizure precaution Code(s): F10.20 - ALCOHOL DEPENDENCE, UNCOMPLICATED (4) COPD (chronic obstructive pulmonary disease) Assessment/Plan: -keep SpO2 >90% -O2 via NC prn for SOB -prednisone daily, PPI for GI protection -bronchodilators Code(s): J44.9 - CHRONIC OBSTRUCTIVE PULMONARY DISEASE, UNSPECIFIED Qualifiers: COPD type: unspecified COPD Qualified Code(s): J44.9 - Chronic obstructive pulmonary disease, unspecified (5) Fever Assessment/Plan: -Tylenol prn for temp >100F -leukoctyosis -CXR, BC, UC ordered -ID consult Code(s): R50.9 - FEVER, UNSPECIFIED Qualifiers: Encounter type: subsequent encounter (6) Hypothyroidism, unspecified Assessment/Plan: -Levothyroxine Code(s): E03.9 - HYPOTHYROIDISM, UNSPECIFIED Qualifiers: 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
[2019-10-14] MEDS: DEXTROSE 5%-NORMAL SALINE 1,000 ML IV SCH ×2 (10:41→22:33)
[2019-10-14] MEDS: FLUTICASONE PROP 0.05% 16 GM NASAL SPRAY NS SCH ×2 (12:30→22:17)
[2019-10-14] MEDS: MULTIVITAMINS (DAILY MVI) TABLET (FP) PO SCH (12:31)
[2019-10-14] MEDS: NICOTINE 7 MG/24 HOURS TOPICAL PATCH TD SCH ×2 (12:31→13:07)
[2019-10-14] MEDS: IRON POLYSACCHARIDES 150 MG CAPSULE PO SCH (12:32)
[2019-10-14] MEDS ORDERED: LORazepam 1 MG TABLET PO PRN (13:39)
--- NOTE | 2019-10-14 14:25 | EKG ---
Test Reason : Blood Pressure : / mmHG Vent. Rate : 107 BPM Atrial Rate : 107 BPM P-R Int : 124 ms QRS Dur : 076 ms QT Int : 336 ms P-R-T Axes : 069 059 067 degrees QTc Int : 448 ms SINUS TACHYCARDIA OTHERWISE NORMAL ECG WHEN COMPARED WITH ECG OF 14-OCT-2019 02:57, NO SIGNIFICANT CHANGE WAS FOUND Confirmed by ARELY GONZALEZ MD ([id number]) on 10/14/2019 2:24:57 PM Referred By: Confirmed By:ARELY GONZALEZ MD
--- NOTE | 2019-10-14 14:26 | EKG ---
Test Reason : Blood Pressure : / mmHG Vent. Rate : 107 BPM Atrial Rate : 107 BPM P-R Int : 126 ms QRS Dur : 088 ms QT Int : 348 ms P-R-T Axes : 074 060 065 degrees QTc Int : 464 ms POOR DATA QUALITY, INTERPRETATION MAY BE ADVERSELY AFFECTED SINUS TACHYCARDIA OTHERWISE NORMAL ECG WHEN COMPARED WITH ECG OF 30-SEP-2019 06:38, NO SIGNIFICANT CHANGE WAS FOUND Confirmed by LISA KOENIG, ARELY ([id number]) on 10/14/2019 2:25:46 PM Referred By: Confirmed By:ARELY GONZALEZ MD
--- NOTE | 2019-10-14 17:33 | CON.GI ---
Consult Consult Specialty:: GI coverage for Dr Rodas - History of Present Illness History of Present Illness: Salazar Alvarez is a 54 yo Homeless M w a hx of COPD and Alcohol Dependence, recent admission for groin abscess, who presents stating he has lower abdominal pain and has had very dark stools. No reports of rectal bleeding . CT revealed sigmoid diverticulitis - Past Medical History Pulmonary: Yes: COPD Gastrointestinal: Yes: Diverticulitis (10/27) Hepatobiliary: Yes: Other (alcoholic liver disease) Renal/: Yes: Other (hyponatremia) Infectious Disease: Yes: Other (chronic folliculitis/fungal skin disease?) Psych: Yes: Addictions (alcohol and cigarettes), Schizophrenia Musculoskeletal: Yes: Chronic low back pain Endocrine: Yes: Other (Hyponatremia) Dermatology: Yes: Other (chronic pruritic scaly rash lower abdomen, inguinal area and lower extremities ) Additional Medical History: Hyponatremia and prone to hypoglycemia. Bilateral inguinal hernias - Past Surgical History Past Surgical History: Yes: Hernia Repair (right inguinal hernia repair). 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 History of Recent Travel: No Home Medications - Allergies Allergies/Adverse Reactions: Allergies Allergy/AdvReac Type Severity Reaction Status Date / Time aspirin Allergy Unknown Verified 10/13/19 23:32 phenobarbital Allergy Unknown Verified 10/13/19 23:32 - Home Medications Home Medications: Ambulatory Orders Amox-Tr/K Cl [Augmentin 875-125mg Tablet -] 1 tab PO BID@0800,1730 #12 tablet Fluticasone Prop 0.05% Nasal [Flonase -] 2 spray NS BID #1 spray 10/08/19 Folic Acid - 1 mg PO DAILY #30 tablet 10/08/19 Iron Polysaccharides [Niferex-150 -] 150 mg PO DAILY #30 capsule 10/08/19 Levothyroxine [Synthroid -] 25 mcg PO DAILY@0700 #30 tablet 10/08/19 Loratadine [Claritin -] 10 mg PO DAILY #30 tablet 10/08/19 Meclizine HCl [Antivert -] 25 mg PO TID PRN #60 tablet 10/08/19 Multivitamins [Multivit ([facility] Formul[facility])] 1 tab PO DAILY #30 tab 10/08/19 Nicotine Patch [Nicoderm Patch -] 7 mg TD DAILY #30 patch 10/08/19 Pantoprazole Sodium [Protonix -] 40 mg PO DAILY #30 tablet.ec 10/08/19 Thiamine HCl [Vitamin B1 -] 100 mg PO DAILY #30 tablet 10/08/19 predniSONE [Deltasone -] 20 mg PO DAILY #30 tablet 10/08/19 Physical Exam-GI Vital Signs: Vital Signs Temperature 98.7 F 10/14/19 15:34 Pulse Rate 99 H 10/14/19 15:34 Respiratory Rate 16 10/14/19 15:34 Blood Pressure 107/68 10/14/19 15:34 O2 Sat by Pulse Oximetry (%) 97 10/14/19 15:34 Constitutional: Yes: No Distress Eyes: Yes: Conjunctiva Clear HENT: Yes: Atraumatic Neck: Yes: Supple Cardiovascular: Yes: Regular Rate and Rhythm Respiratory: Yes: CTA Bilaterally ...Palpate: Yes: Soft, Tenderness (--llq mild). No: Firm/Rigid, Guarding, Hepatomegaly, Splenomegaly Labs: CBC, BMP 10/14/19 03:00 10/14/19 03:00 INR, PTT INR 1.07 (0.83-1.09) 10/14/19 03:00 Active Medications Generic Name Dose Route Start Last Admin Trade Name Freq PRN Reason Stop Dose Admin Acetaminophen 650 mg 10/14/19 09:39 10/14/19 10:30 Tylenol - PO 650 mg Q6H PRN Administration FEVER Fluticasone Propionate 2 spray 10/14/19 10:00 10/14/19 12:30 Flonase - NS 2 spr BID EMMA Administration Folic Acid 1 mg 10/14/19 10:00 10/14/19 10:32 Folic Acid - PO 1 mg DAILY EMMA Administration Dextrose/Sodium Chloride 1,000 mls @ 75 mls/hr 10/14/19 10:00 10/14/19 10:41 D5-Ns - IV 75 mls/hr ASDIR EMMA Administration Levothyroxine Sodium 25 mcg 10/15/19 07:00 Synthroid - PO DAILY@0700 EMMA Loratadine 10 mg 10/14/19 10:00 10/14/19 10:31 Claritin - PO 10 mg DAILY EMMA Administration Lorazepam 1 mg 10/14/19 13:39 Ativan - PO TID PRN ANXIETY Meclizine HCl 25 mg 10/14/19 09:38 Antivert - PO TID PRN VERTIGO Multivitamins/Minerals/Vitamin C 1 tab 10/14/19 10:00 10/14/19 12:31 Tab-A-Vit - PO 1 tab DAILY EMMA Administration Nicotine 7 mg 10/14/19 10:00 10/14/19 13:07 Nicoderm Patch - TD Not Given DAILY EMMA Pantoprazole Sodium 40 mg 10/14/19 10:00 10/14/19 10:32 Protonix - PO 40 mg DAILY EMMA Administration Polysaccharide Iron Complex 150 mg 10/14/19 10:00 10/14/19 12:32 Niferex-150 - PO 150 mg DAILY EMMA Administration Prednisone 20 mg 10/14/19 10:00 10/14/19 10:32 Deltasone - PO 20 mg DAILY EMMA Administration Thiamine HCl 100 mg 10/14/19 10:00 10/14/19 10:34 Vitamin B1 - PO 100 mg DAILY EMMA Administration Problem List - Problems (1) Diverticulitis Assessment/Plan: R> continue IV hydration IV antibiotics advance diet once luekocytosis resolves and clinically improved Code(s): K57.92 - DVTRCLI OF INTEST, PART UNSP, W/O PERF OR ABSCESS W/O BLEED
[2019-10-14] MEDS ORDERED: ALBUTEROL SO4 0.083% IH SOL 2.5 MG/3 ML VIAL.NEB. NEB PRN (20:23)
[2019-10-14 20:55] VITALS: BMI 18.8
--- NOTE | 2019-10-14 22:13 | PN ---
Progress Note (short form) - Note Progress Note: ID CONSULT DICTATED ACUTE SIGMOID DIVERTICULITIS FEVER/LEUKOCYTOSIS S/P R INGUINAL SOFT TISSUE ABSCESS AWAIT C/S EMPIRIC ZOSYN/ FLAGYL
[2019-10-14] MEDS: HEPARIN NA (PORCINE) 5,000 UNITS/ML 1ML VIAL SQ SCH (22:34)
[2019-10-14] MEDS ORDERED: PIPERACILLIN/TAZOBACTAM 3.375 GM VIAL IVPB ONE (22:40)
[2019-10-14] MEDS ORDERED: DEXTROSE 5%-WATER - 50 ML IVPB ONE (22:41)
[2019-10-14] MEDS: PIPERACILLIN/TAZOB 3.375 GM 3.375 GM in DEXTROSE 5%-WATER - 50 ML IVPB SCH (22:44)
--- NOTE | 2019-10-14 23:50 | CONS ---
DATE OF CONSULTATION: DATE OF DICTATION: 10/14/2019 INFECTIOUS DISEASE CONSULTATION HISTORY OF PRESENT ILLNESS: The patient is a 54-year-old male with a history of alcohol abuse admitted with abdominal pain. He was recently hospitalized at [facility] in late September with a soft tissue abscess of the right lower quadrant. Cultures at that time were positive for coagulase negative staph. He clinically improved on IV antibiotic therapy and was discharged. He now returns with a 2-day history of worsening diffuse abdominal pain associated with black stools. A CAT scan of the abdomen and pelvis was performed in the emergency room that showed acute sigmoid diverticulitis without abscess formation. He was empirically treated with ciprofloxacin and Flagyl. At the present time he complains of diffuse abdominal pain. He denies any vomiting. He has had black tarry stools. His course has been complicated by fever and elevated white blood cell count. PAST MEDICAL HISTORY: Positive for COPD, diverticulosis, chronic alcoholism. ALLERGIES: Aspirin and phenobarbital. SOCIAL HISTORY: Patient is homeless. Positive history of tobacco. Positive history of alcohol abuse. LABORATORY DATA: White count 19.9, hematocrit 39.0, platelets 582, creatinine 0.5. Urinalysis negative. Cultures are pending. PHYSICAL EXAMINATION: General: On exam, he is awake and alert, he is not acutely toxic appearing. Vital signs: Temperature 98.3, T-max 99.8, blood pressure 114/59, pulse 90 regular, respirations 18 per minute. HEENT: Sclerae anicteric. Cardiovascular: Heart sounds S1, S2. Lungs: Clear. Abdomen: Soft. There is mild tenderness throughout. Marked tenderness in the left lower quadrant. No rebound or rigidity. Extremities: Negative for edema. The right inguinal area with a superficial ulceration. There is no erythema, tenderness, and fluctuance. IMPRESSION: 1. Acute sigmoid diverticulitis. 2. Fever, leukocytosis. Rule out sepsis secondary to intraabdominal source. 3. Status post right inguinal soft tissue abscess. 4. Chronic alcoholism. Await cultures. Empiric antibiotic coverage with Zosyn and Flagyl. GI evaluation. Will follow. Thank you for the kind referral. SHAMEKA BRASHER M.D. [facility]/[id number]
[2019-10-15] MEDS ORDERED: DEXTROSE 5%-WATER - 50 ML IVPB ONE ×3 (02:10→17:49)
[2019-10-15] MEDS ORDERED: PIPERACILLIN/TAZOBACTAM 3.375 GM VIAL IVPB ONE ×3 (02:10→17:49)
[2019-10-15] MEDS: PIPERACILLIN/TAZOB 3.375 GM 3.375 GM in DEXTROSE 5%-WATER - 50 ML IVPB SCH ×3 (02:22→17:56)
[2019-10-15] MEDS: ACETAMINOPHEN 325 MG TABLET (FP) PO PRN (06:26)
[2019-10-15] MEDS: LEVOTHYROXINE NA 25 MCG TABLET (FP) PO SCH (06:26)
--- NOTE | 2019-10-15 08:56 | PN ---
Progress Note, Physician Chief Complaint: Diverticulitis History of Present Illness: Previous notes and events reviewed awake and alert NAD complain of sharp abdominal pain and dark stool stool OB neg leukocytosis - Current Medication List Current Medications: Active Medications Acetaminophen (Tylenol -) 650 mg PO Q6H PRN PRN Reason: FEVER Last Admin: 10/15/19 06:26 Dose: 650 mg Albuterol Sulfate (Ventolin 0.083% Nebulizer Soln -) 1 amp NEB Q6H PRN PRN Reason: SHORT OF BREATH/WHEEZING Fluticasone Propionate (Flonase -) 2 spray NS BID [facility] Last Admin: 10/14/19 22:17 Dose: Not Given Folic Acid (Folic Acid -) 1 mg PO DAILY [facility] Last Admin: 10/14/19 10:32 Dose: 1 mg Heparin Sodium (Porcine) (Heparin -) 5,000 unit SQ BID [facility] Last Admin: 10/14/19 22:34 Dose: 5,000 unit Dextrose/Sodium Chloride (D5-Ns -) 1,000 mls @ 75 mls/hr IV ASDIR [facility] Last Admin: 10/14/19 22:33 Dose: 75 mls/hr Piperacillin Sod/Tazobactam (Sod 3.375 gm/ Dextrose) 50 mls @ 100 mls/hr IVPB Q8H-IV [facility]; Protocol Last Admin: 10/15/19 02:22 Dose: 100 mls/hr Metronidazole (Flagyl 500mg Premixed Ivpb -) 500 mg in 100 mls @ 100 mls/hr IVPB Q8H-IV [facility] Last Admin: 10/15/19 04:13 Dose: 100 mls/hr Levothyroxine Sodium (Synthroid -) 25 mcg PO DAILY@0700 [facility] Last Admin: 10/15/19 06:26 Dose: 25 mcg Loratadine (Claritin -) 10 mg PO DAILY [facility] Last Admin: 10/14/19 10:31 Dose: 10 mg Lorazepam (Ativan -) 1 mg PO TID PRN PRN Reason: ANXIETY Meclizine HCl (Antivert -) 25 mg PO TID PRN PRN Reason: VERTIGO Multivitamins/Minerals/Vitamin C (Tab-A-Vit -) 1 tab PO DAILY [facility] Last Admin: 10/14/19 12:31 Dose: 1 tab Nicotine (Nicoderm Patch -) 7 mg TD DAILY [facility] Last Admin: 10/14/19 13:07 Dose: Not Given Pantoprazole Sodium (Protonix -) 40 mg PO DAILY [facility] Last Admin: 10/14/19 10:32 Dose: 40 mg Polysaccharide Iron Complex (Niferex-150 -) 150 mg PO DAILY [facility] Last Admin: 10/14/19 12:32 Dose: 150 mg Prednisone (Deltasone -) 20 mg PO DAILY [facility] Last Admin: 10/14/19 10:32 Dose: 20 mg Thiamine HCl (Vitamin B1 -) 100 mg PO DAILY [facility] Last Admin: 10/14/19 10:34 Dose: 100 mg - Objective Vital Signs: Vital Signs Temperature 98 F 10/15/19 05:51 Pulse Rate 85 10/15/19 05:51 Respiratory Rate 18 10/15/19 05:51 Blood Pressure 120/70 10/15/19 05:51 O2 Sat by Pulse Oximetry (%) 95 10/14/19 20:38 Constitutional: Yes: No Distress, Calm Eyes: Yes: Conjunctiva Clear HENT: Yes: Atraumatic Cardiovascular: Yes: Regular Rate and Rhythm Respiratory: Yes: Regular, CTA Bilaterally Gastrointestinal: Yes: Normal Bowel Sounds, Soft, Tenderness (llq) Musculoskeletal: Yes: WNL Extremities: Yes: WNL Edema: No Neurological: Yes: Alert, Oriented Psychiatric: Yes: Alert, Oriented Labs: CBC, BMP 10/14/19 03:00 10/14/19 03:00 INR, PTT INR 1.07 (0.83-1.09) 10/14/19 03:00 Microbiology 10/14/19 03:10 Urine - Urine Clean Catch Urine Culture - Final NO GROWTH OBTAINED Problem List - Problems (1) Diverticulitis Assessment/Plan: -GI on board -Metronidazole and Zosyn -leukocytosis -febrile -CTAP shows findings consistent with acute sigmoid diverticulitis without abscess formation -IV hydration -NPO -Stool OB neg Code(s): K57.92 - DVTRCLI OF INTEST, PART UNSP, W/O PERF OR ABSCESS W/O BLEED (2) Abdominal pain Assessment/Plan: -GI consult -Metronidazole and Zosyn -leukocytosis -febrile -CTAP shows findings consistent with acute sigmoid diverticulitis without abscess formation -IV hydration -NPO Code(s): R10.9 - UNSPECIFIED ABDOMINAL PAIN Qualifiers: Abdominal location: lower abdomen, unspecified Qualified Code(s): R10.30 - Lower abdominal pain, unspecified (3) Alcohol dependence Assessment/Plan: -Dr Aviles consult -Ativan prn for anxiety/agitation -Thiamine, MVI, Folic Acid -fall precaution -seizure precaution Code(s): F10.20 - ALCOHOL DEPENDENCE, UNCOMPLICATED (4) COPD (chronic obstructive pulmonary disease) Assessment/Plan: -keep SpO2 >90% -O2 via NC prn for SOB -prednisone daily, PPI for GI protection -bronchodilators Code(s): J44.9 - CHRONIC OBSTRUCTIVE PULMONARY DISEASE, UNSPECIFIED Qualifiers: COPD type: unspecified COPD Qualified Code(s): J44.9 - Chronic obstructive pulmonary disease, unspecified (5) Fever Assessment/Plan: -Tylenol prn for temp >100F -leukoctyosis -CXR shows no sign of infiltrate or failure -BC pending - neg -ID on board Code(s): R50.9 - FEVER, UNSPECIFIED Qualifiers: Encounter type: subsequent encounter (6) Hypothyroidism, unspecified Assessment/Plan: -Levothyroxine Code(s): E03.9 - HYPOTHYROIDISM, UNSPECIFIED Qualifiers: 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
[2019-10-15 09:27] LABS: BASO % 0.6 % (0-2.0); EOS % 0.4 % (0-4.5); HEMATOCRIT 34.5 % (35.4-49); HEMOGLOBIN 11.5 GM/dL (11.7-16.9); LYMPH % 9.9 % (8-40); MCH 31.3 pg (25.7-33.7); MCHC 33.4 g/dl (32.0-35.9); MEAN CELL VOLUME 93.8 fl (80-96); MEAN PLT VOLUME 6.8 fl (7.5-11.1); MONO % 7.5 % (3.8-10.2); NEUT % 81.6 % (42.8-82.8); PLATELET COUNT 447 K/MM3 (134-434); RBC 3.68 M/mm3 (4.00-5.60); RDW 13.5 % (11.9-15.9); WHITE BLOOD COUNT 17.7 K/mm3 (4.0-10.0)
[2019-10-15 10:15] LABS: ALBUMIN 2.8 g/dl (3.4-5.0); BILIRUBIN,TOTAL 0.9 mg/dL (0.2-1); BLOOD UREA NITROGEN 6.1 mg/dL (7-18); CALCIUM 8.6 mg/dL (8.5-10.1); CREATININE 0.7 mg/dL (0.55-1.3); POTASSIUM 3.7 mmol/L (3.5-5.1); TOT PROT 5.6 g/dl (6.4-8.2)
[2019-10-15] MEDS: PANTOPRAZOLE 40 MG TABLET PO SCH (10:56)
[2019-10-15] MEDS: predniSONE 20 MG TABLET (UD) PO SCH (10:56)
[2019-10-15] MEDS: IRON POLYSACCHARIDES 150 MG CAPSULE PO SCH (10:56)
[2019-10-15] MEDS: MULTIVITAMINS (DAILY MVI) TABLET (FP) PO SCH (10:56)
[2019-10-15] MEDS: LORATADINE 10 MG TABLET PO SCH (10:56)
[2019-10-15] MEDS: NICOTINE 7 MG/24 HOURS TOPICAL PATCH TD SCH ×2 (10:56→11:18)
[2019-10-15] MEDS: FOLIC ACID 1 MG TABLET (FP) PO SCH (10:56)
[2019-10-15] MEDS: FLUTICASONE PROP 0.05% 16 GM NASAL SPRAY NS SCH ×2 (11:03→21:34)
[2019-10-15] MEDS: DEXTROSE 5%-NORMAL SALINE 1,000 ML IV SCH ×2 (11:03→18:20)
[2019-10-15] MEDS: HEPARIN NA (PORCINE) 5,000 UNITS/ML 1ML VIAL SQ SCH ×2 (11:04→21:33)
[2019-10-15] MEDS: THIAMINE HCL 100 MG TABLET (FP) PO SCH (11:06)
--- NOTE | 2019-10-15 11:43 | PN.GI ---
GI Progress Note Subjective: No acute events States feeling well pelvic/LLQ pain slowly improving Right groin pain improving, no discharge No rectal bleeding - Objective Vital Signs: Vital Signs Temperature 98 F 10/15/19 05:51 Pulse Rate 85 10/15/19 05:51 Respiratory Rate 18 10/15/19 05:51 Blood Pressure 120/70 10/15/19 05:51 O2 Sat by Pulse Oximetry (%) 95 10/14/19 20:38 Constitutional: Calm Eyes: No: Sclera Icterus Cardiovascular: Yes: Regular Rate and Rhythm Respiratory: Yes: CTA Bilaterally Gastrointestinal Inspection: No: Distention ...Auscultate: Yes: Normoactive Bowel Sounds, Other (small right groin wound overlying a right inguinal hernia. Mild TTP) ...Palpate: Yes: Tenderness (Moderate suprapubic and LLQ TTP). No: Guarding, Tenderness, Rebound ...Percussion: No: Tympanitic Edema: No (No LE edema) Neurological: Yes: Alert Labs: CBC, BMP 10/15/19 09:03 10/15/19 09:03 INR, PTT INR 1.07 (0.83-1.09) 10/14/19 03:00 Problem List - Problems (1) Diverticulitis Assessment/Plan: Patient believes that he is improving pain noriega Continue NPO until further improvement IV Abx Will need follow-up colonoscopy in 6-8 weeks for reassessment AM Labs Dr. Rosas covering tonight through the weekend Code(s): K57.92 - DVTRCLI OF INTEST, PART UNSP, W/O PERF OR ABSCESS W/O BLEED
--- NOTE | 2019-10-15 17:21 | PN ---
Progress Note, Physician History of Present Illness: LLQ ABDOMINAL PAIN SOMEWHAT BETTER NO C/O N/V NO BM TEMPS DOWN WBC REMAINS ELEVATED - Current Medication List Current Medications: Active Medications Acetaminophen (Tylenol -) 650 mg PO Q6H PRN PRN Reason: FEVER Last Admin: 10/15/19 06:26 Dose: 650 mg Albuterol Sulfate (Ventolin 0.083% Nebulizer Soln -) 1 amp NEB Q6H PRN PRN Reason: SHORT OF BREATH/WHEEZING Fluticasone Propionate (Flonase -) 2 spray NS BID [facility] Last Admin: 10/15/19 11:03 Dose: 2 spr Folic Acid (Folic Acid -) 1 mg PO DAILY [facility] Last Admin: 10/15/19 10:56 Dose: 1 mg Heparin Sodium (Porcine) (Heparin -) 5,000 unit SQ BID [facility] Last Admin: 10/15/19 11:04 Dose: 5,000 unit Dextrose/Sodium Chloride (D5-Ns -) 1,000 mls @ 75 mls/hr IV ASDIR [facility] Last Admin: 10/15/19 11:03 Dose: Not Given Piperacillin Sod/Tazobactam (Sod 3.375 gm/ Dextrose) 50 mls @ 100 mls/hr IVPB Q8H-IV [facility]; Protocol Last Admin: 10/15/19 10:55 Dose: 100 mls/hr Metronidazole (Flagyl 500mg Premixed Ivpb -) 500 mg in 100 mls @ 100 mls/hr IVPB Q8H-IV [facility] Last Admin: 10/15/19 11:34 Dose: 100 mls/hr Levothyroxine Sodium (Synthroid -) 25 mcg PO DAILY@0700 [facility] Last Admin: 10/15/19 06:26 Dose: 25 mcg Loratadine (Claritin -) 10 mg PO DAILY [facility] Last Admin: 10/15/19 10:56 Dose: 10 mg Lorazepam (Ativan -) 1 mg PO TID PRN PRN Reason: ANXIETY Meclizine HCl (Antivert -) 25 mg PO TID PRN PRN Reason: VERTIGO Multivitamins/Minerals/Vitamin C (Tab-A-Vit -) 1 tab PO DAILY [facility] Last Admin: 10/15/19 10:56 Dose: 1 tab Nicotine (Nicoderm Patch -) 7 mg TD DAILY [facility] Last Admin: 10/15/19 11:18 Dose: Not Given Pantoprazole Sodium (Protonix -) 40 mg PO DAILY [facility] Last Admin: 10/15/19 10:56 Dose: 40 mg Polysaccharide Iron Complex (Niferex-150 -) 150 mg PO DAILY [facility] Last Admin: 10/15/19 10:56 Dose: 150 mg Prednisone (Deltasone -) 20 mg PO DAILY [facility] Last Admin: 10/15/19 10:56 Dose: 20 mg Thiamine HCl (Vitamin B1 -) 100 mg PO DAILY [facility] Last Admin: 10/15/19 11:06 Dose: 100 mg - Objective Vital Signs: Vital Signs Temperature 97.3 F L 10/15/19 15:08 Pulse Rate 81 10/15/19 15:08 Respiratory Rate 18 10/15/19 15:08 Blood Pressure 139/85 10/15/19 15:08 O2 Sat by Pulse Oximetry (%) 95 10/14/19 20:38 Constitutional: Yes: No Distress Eyes: Yes: Conjunctiva Clear Cardiovascular: Yes: Regular Rate and Rhythm, S1, S2 Respiratory: Yes: Rhonchi Gastrointestinal: Yes: Normal Bowel Sounds, Soft, Tenderness, Other (+ LLQ TENDERNESS) Edema: No Labs: CBC, BMP 10/15/19 09:03 10/15/19 09:03 INR, PTT INR 1.07 (0.83-1.09) 10/14/19 03:00 Assessment/Plan ACUTE SIGMOID DIVERTICULITIS FEVER/LEUKOCYTOSIS S/P R INGUINAL SOFT TISSUE ABSCESS CONTINUE EMPIRIC ZOSYN/ FLAGYL
[2019-10-16] MEDS ORDERED: PIPERACILLIN/TAZOBACTAM 3.375 GM VIAL IVPB ONE ×3 (01:35→17:29)
[2019-10-16] MEDS ORDERED: DEXTROSE 5%-WATER - 50 ML IVPB ONE ×3 (01:35→17:30)
[2019-10-16] MEDS: PIPERACILLIN/TAZOB 3.375 GM 3.375 GM in DEXTROSE 5%-WATER - 50 ML IVPB SCH ×3 (01:53→18:12)
[2019-10-16] MEDS: LEVOTHYROXINE NA 25 MCG TABLET (FP) PO SCH (06:25)
[2019-10-16] MEDS: ACETAMINOPHEN 325 MG TABLET (FP) PO PRN (06:25)
[2019-10-16 09:47] LABS: EOS % 1.2 % (0-4.5); HEMATOCRIT 32.1 % (35.4-49); HEMOGLOBIN 10.8 GM/dL (11.7-16.9); LYMPH % 20.9 % (8-40); MCH 31.5 pg (25.7-33.7); MCHC 33.7 g/dl (32.0-35.9); MEAN CELL VOLUME 93.7 fl (80-96); MEAN PLT VOLUME 7.6 fl (7.5-11.1); MONO % 7.8 % (3.8-10.2); NEUT % 69.1 % (42.8-82.8); PLATELET COUNT 407 K/MM3 (134-434); RBC 3.43 M/mm3 (4.00-5.60); RDW 13.1 % (11.9-15.9); WHITE BLOOD COUNT 12.6 K/mm3 (4.0-10.0)
[2019-10-16] MEDS: FOLIC ACID 1 MG TABLET (FP) PO SCH (09:55)
[2019-10-16] MEDS: LORATADINE 10 MG TABLET PO SCH (09:55)
[2019-10-16] MEDS: PANTOPRAZOLE 40 MG TABLET PO SCH (09:55)
[2019-10-16] MEDS: HEPARIN NA (PORCINE) 5,000 UNITS/ML 1ML VIAL SQ SCH ×2 (09:55→21:47)
[2019-10-16] MEDS: IRON POLYSACCHARIDES 150 MG CAPSULE PO SCH (09:55)
[2019-10-16] MEDS: predniSONE 20 MG TABLET (UD) PO SCH (09:55)
[2019-10-16] MEDS: THIAMINE HCL 100 MG TABLET (FP) PO SCH (09:55)
[2019-10-16] MEDS: MULTIVITAMINS (DAILY MVI) TABLET (FP) PO SCH (09:56)
[2019-10-16] MEDS: NICOTINE 7 MG/24 HOURS TOPICAL PATCH TD SCH (09:59)
[2019-10-16] MEDS: FLUTICASONE PROP 0.05% 16 GM NASAL SPRAY NS SCH ×2 (10:02→21:52)
[2019-10-16] MEDS: DEXTROSE 5%-NORMAL SALINE 1,000 ML IV SCH (10:07)
[2019-10-16 10:23] LABS: ALBUMIN 2.8 g/dl (3.4-5.0); BILIRUBIN,TOTAL 0.4 mg/dL (0.2-1); CALCIUM 8.5 mg/dL (8.5-10.1); CREATININE 0.7 mg/dL (0.55-1.3); POTASSIUM 3.8 mmol/L (3.5-5.1); TOT PROT 5.4 g/dl (6.4-8.2)
--- NOTE | 2019-10-16 14:02 | PN ---
Progress Note, Physician Chief Complaint: Diverticulitis History of Present Illness: NAD Denies any further abd pain Seen by GI - Current Medication List Current Medications: Active Medications Acetaminophen (Tylenol -) 650 mg PO Q6H PRN PRN Reason: FEVER Last Admin: 10/16/19 06:25 Dose: 650 mg Albuterol Sulfate (Ventolin 0.083% Nebulizer Soln -) 1 amp NEB Q6H PRN PRN Reason: SHORT OF BREATH/WHEEZING Fluticasone Propionate (Flonase -) 2 spray NS BID [facility] Last Admin: 10/16/19 10:02 Dose: 2 spr Folic Acid (Folic Acid -) 1 mg PO DAILY [facility] Last Admin: 10/16/19 09:55 Dose: 1 mg Heparin Sodium (Porcine) (Heparin -) 5,000 unit SQ BID [facility] Last Admin: 10/16/19 09:55 Dose: 5,000 unit Dextrose/Sodium Chloride (D5-Ns -) 1,000 mls @ 75 mls/hr IV ASDIR [facility] Last Admin: 10/16/19 10:07 Dose: 75 mls/hr Piperacillin Sod/Tazobactam (Sod 3.375 gm/ Dextrose) 50 mls @ 100 mls/hr IVPB Q8H-IV [facility]; Protocol Last Admin: 10/16/19 09:54 Dose: 100 mls/hr Metronidazole (Flagyl 500mg Premixed Ivpb -) 500 mg in 100 mls @ 100 mls/hr IVPB Q8H-IV [facility] Last Admin: 10/16/19 10:06 Dose: 100 mls/hr Levothyroxine Sodium (Synthroid -) 25 mcg PO DAILY@0700 [facility] Last Admin: 10/16/19 06:25 Dose: 25 mcg Loratadine (Claritin -) 10 mg PO DAILY [facility] Last Admin: 10/16/19 09:55 Dose: 10 mg Lorazepam (Ativan -) 1 mg PO TID PRN PRN Reason: ANXIETY Meclizine HCl (Antivert -) 25 mg PO TID PRN PRN Reason: VERTIGO Multivitamins/Minerals/Vitamin C (Tab-A-Vit -) 1 tab PO DAILY [facility] Last Admin: 10/16/19 09:56 Dose: 1 tab Nicotine (Nicoderm Patch -) 7 mg TD DAILY [facility] Last Admin: 02/08/20 09:59 Dose: Not Given Pantoprazole Sodium (Protonix -) 40 mg PO DAILY [facility] Last Admin: 10/16/19 09:55 Dose: 40 mg Polysaccharide Iron Complex (Niferex-150 -) 150 mg PO DAILY [facility] Last Admin: 10/16/19 09:55 Dose: 150 mg Prednisone (Deltasone -) 20 mg PO DAILY [facility] Last Admin: 10/16/19 09:55 Dose: 20 mg Thiamine HCl (Vitamin B1 -) 100 mg PO DAILY [facility] Last Admin: 10/16/19 09:55 Dose: 100 mg - Objective Vital Signs: Vital Signs Temperature 98.2 F 10/16/19 09:44 Pulse Rate 64 10/16/19 09:44 Respiratory Rate 18 10/16/19 09:44 Blood Pressure 129/71 10/16/19 09:44 O2 Sat by Pulse Oximetry (%) 98 10/16/19 09:00 Constitutional: Yes: No Distress, Calm, Cachectic Cardiovascular: Yes: Regular Rate and Rhythm Respiratory: Yes: Regular Gastrointestinal: Yes: Normal Bowel Sounds, Soft Genitourinary: Yes: WNL Musculoskeletal: Yes: WNL Edema: No Peripheral Pulses WNL: Yes Neurological: Yes: Alert, Oriented Psychiatric: Yes: Alert, Oriented Labs: CBC, BMP 10/16/19 08:35 10/16/19 08:35 INR, PTT INR 1.07 (0.83-1.09) 10/14/19 03:00 Assessment/Plan (1) Diverticulitis Assessment/Plan: -GI on board -Metronidazole and Zosyn -leukocytosis -afebrile -CTAP shows findings consistent with acute sigmoid diverticulitis without abscess formation -IV hydration -start clear liquids -Stool OB neg Code(s): K57.92 - DVTRCLI OF INTEST, PART UNSP, W/O PERF OR ABSCESS W/O BLEED (2) Abdominal pain Assessment/Plan: -GI consult -Metronidazole and Zosyn -leukocytosis -afebrile -CTAP shows findings consistent with acute sigmoid diverticulitis without abscess formation -IV hydration Code(s): R10.9 - UNSPECIFIED ABDOMINAL PAIN Qualifiers: Abdominal location: lower abdomen, unspecified Qualified Code(s): R10.30 - Lower abdominal pain, unspecified (3) Alcohol dependence Assessment/Plan: -Ativan prn for anxiety/agitation -Thiamine, MVI, Folic Acid -fall precaution -seizure precaution Code(s): F10.20 - ALCOHOL DEPENDENCE, UNCOMPLICATED (4) COPD (chronic obstructive pulmonary disease) Assessment/Plan: -keep SpO2 >90% -O2 via NC prn for SOB -prednisone daily, PPI for GI protection -bronchodilators Code(s): J44.9 - CHRONIC OBSTRUCTIVE PULMONARY DISEASE, UNSPECIFIED Qualifiers: COPD type: unspecified COPD Qualified Code(s): J44.9 - Chronic obstructive pulmonary disease, unspecified (5) Fever Assessment/Plan: -Tylenol prn for temp >100F -leukoctyosis improved -CXR shows no sign of infiltrate or failure -BC: Microbiology 10/14/19 13:24 Blood Culture - Preliminary Blood - Peripheral Venous NO GROWTH OBTAINED AFTER 48 HOURS, INCUBATION TO CONTINUE FOR 3 DAYS. 10/14/19 13:20 Blood Culture - Preliminary Blood - Peripheral Venous NO GROWTH OBTAINED AFTER 48 HOURS, INCUBATION TO CONTINUE FOR 3 DAYS. 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
[2019-10-17] MEDS: PIPERACILLIN/TAZOB 3.375 GM 3.375 GM in DEXTROSE 5%-WATER - 50 ML IVPB SCH ×3 (02:25→18:09)
[2019-10-17] MEDS ORDERED: PIPERACILLIN/TAZOBACTAM 3.375 GM VIAL IVPB ONE ×3 (02:33→17:10)
[2019-10-17] MEDS ORDERED: DEXTROSE 5%-WATER - 50 ML IVPB ONE ×3 (02:34→17:10)
[2019-10-17] MEDS: LEVOTHYROXINE NA 25 MCG TABLET (FP) PO SCH (06:38)
[2019-10-17] MEDS: DEXTROSE 5%-NORMAL SALINE 1,000 ML IV SCH (09:06)
[2019-10-17] MEDS: HEPARIN NA (PORCINE) 5,000 UNITS/ML 1ML VIAL SQ SCH ×2 (09:08→21:40)
[2019-10-17] MEDS: FOLIC ACID 1 MG TABLET (FP) PO SCH (09:09)
[2019-10-17] MEDS: THIAMINE HCL 100 MG TABLET (FP) PO SCH (09:09)
[2019-10-17] MEDS: predniSONE 20 MG TABLET (UD) PO SCH (09:09)
[2019-10-17] MEDS: IRON POLYSACCHARIDES 150 MG CAPSULE PO SCH (09:09)
[2019-10-17] MEDS: NICOTINE 7 MG/24 HOURS TOPICAL PATCH TD SCH (09:09)
[2019-10-17] MEDS: PANTOPRAZOLE 40 MG TABLET PO SCH (09:09)
[2019-10-17] MEDS: LORATADINE 10 MG TABLET PO SCH (09:09)
[2019-10-17] MEDS: MULTIVITAMINS (DAILY MVI) TABLET (FP) PO SCH (09:09)
[2019-10-17] MEDS: FLUTICASONE PROP 0.05% 16 GM NASAL SPRAY NS SCH ×2 (09:16→21:40)
--- NOTE | 2019-10-17 11:22 | PN ---
Progress Note, Physician Chief Complaint: Diverticulitis History of Present Illness: NAD Denies any further abd pain Seen by GI - Current Medication List Current Medications: Active Medications Acetaminophen (Tylenol -) 650 mg PO Q6H PRN PRN Reason: FEVER Last Admin: 10/16/19 06:25 Dose: 650 mg Albuterol Sulfate (Ventolin 0.083% Nebulizer Soln -) 1 amp NEB Q6H PRN PRN Reason: SHORT OF BREATH/WHEEZING Fluticasone Propionate (Flonase -) 2 spray NS BID [facility] Last Admin: 10/17/19 09:16 Dose: 2 spr Folic Acid (Folic Acid -) 1 mg PO DAILY [facility] Last Admin: 10/17/19 09:09 Dose: 1 mg Heparin Sodium (Porcine) (Heparin -) 5,000 unit SQ BID [facility] Last Admin: 10/17/19 09:08 Dose: 5,000 unit Dextrose/Sodium Chloride (D5-Ns -) 1,000 mls @ 75 mls/hr IV ASDIR [facility] Last Admin: 10/17/19 09:06 Dose: 75 mls/hr Piperacillin Sod/Tazobactam (Sod 3.375 gm/ Dextrose) 50 mls @ 100 mls/hr IVPB Q8H-IV [facility]; Protocol Last Admin: 10/17/19 09:17 Dose: 100 mls/hr Metronidazole (Flagyl 500mg Premixed Ivpb -) 500 mg in 100 mls @ 100 mls/hr IVPB Q8H-IV [facility] Last Admin: 10/17/19 09:07 Dose: 100 mls/hr Levothyroxine Sodium (Synthroid -) 25 mcg PO DAILY@0700 [facility] Last Admin: 10/17/19 06:38 Dose: 25 mcg Loratadine (Claritin -) 10 mg PO DAILY [facility] Last Admin: 10/17/19 09:09 Dose: 10 mg Lorazepam (Ativan -) 1 mg PO TID PRN PRN Reason: ANXIETY Meclizine HCl (Antivert -) 25 mg PO TID PRN PRN Reason: VERTIGO Multivitamins/Minerals/Vitamin C (Tab-A-Vit -) 1 tab PO DAILY [facility] Last Admin: 10/17/19 09:09 Dose: 1 tab Nicotine (Nicoderm Patch -) 7 mg TD DAILY [facility] Last Admin: 02/09/20 09:09 Dose: Not Given Pantoprazole Sodium (Protonix -) 40 mg PO DAILY [facility] Last Admin: 10/17/19 09:09 Dose: 40 mg Polysaccharide Iron Complex (Niferex-150 -) 150 mg PO DAILY [facility] Last Admin: 10/17/19 09:09 Dose: 150 mg Prednisone (Deltasone -) 20 mg PO DAILY [facility] Last Admin: 10/17/19 09:09 Dose: 20 mg Thiamine HCl (Vitamin B1 -) 100 mg PO DAILY [facility] Last Admin: 10/17/19 09:09 Dose: 100 mg - Objective Vital Signs: Vital Signs Temperature 98.1 F 10/17/19 04:55 Pulse Rate 65 10/17/19 04:55 Respiratory Rate 20 10/17/19 04:55 Blood Pressure 124/71 10/17/19 04:55 O2 Sat by Pulse Oximetry (%) 98 10/16/19 09:00 Constitutional: Yes: No Distress, Calm, Cachectic Cardiovascular: Yes: Regular Rate and Rhythm Respiratory: Yes: Regular Gastrointestinal: Yes: Normal Bowel Sounds, Soft Genitourinary: Yes: WNL Musculoskeletal: Yes: WNL Extremities: Yes: WNL Edema: No Peripheral Pulses WNL: Yes Neurological: Yes: Alert, Oriented Psychiatric: Yes: Alert, Oriented Labs: CBC, BMP 10/16/19 08:35 10/16/19 08:35 INR, PTT INR 1.07 (0.83-1.09) 10/14/19 03:00 Assessment/Plan (1) Diverticulitis Assessment/Plan: -GI on board -Metronidazole and Zosyn -leukocytosis -afebrile -CTAP shows findings consistent with acute sigmoid diverticulitis without abscess formation -IV hydration -tolerating regular foods -Stool OB neg Code(s): K57.92 - DVTRCLI OF INTEST, PART UNSP, W/O PERF OR ABSCESS W/O BLEED (2) Abdominal pain Assessment/Plan: -GI consult -Metronidazole and Zosyn -leukocytosis -afebrile -CTAP shows findings consistent with acute sigmoid diverticulitis without abscess formation -IV hydration Code(s): R10.9 - UNSPECIFIED ABDOMINAL PAIN Qualifiers: Abdominal location: lower abdomen, unspecified Qualified Code(s): R10.30 - Lower abdominal pain, unspecified (3) Alcohol dependence Assessment/Plan: -Ativan prn for anxiety/agitation -Thiamine, MVI, Folic Acid -fall precaution -seizure precaution Code(s): F10.20 - ALCOHOL DEPENDENCE, UNCOMPLICATED (4) COPD (chronic obstructive pulmonary disease) Assessment/Plan: -keep SpO2 >90% -O2 via NC prn for SOB -prednisone daily, PPI for GI protection -bronchodilators Code(s): J44.9 - CHRONIC OBSTRUCTIVE PULMONARY DISEASE, UNSPECIFIED Qualifiers: COPD type: unspecified COPD Qualified Code(s): J44.9 - Chronic obstructive pulmonary disease, unspecified (5) Fever Assessment/Plan: -Tylenol prn for temp >100F -leukoctyosis improved -CXR shows no sign of infiltrate or failure -BC: Microbiology 10/14/19 13:24 Blood Culture - Preliminary Blood - Peripheral Venous NO GROWTH OBTAINED AFTER 48 HOURS, INCUBATION TO CONTINUE FOR 3 DAYS. 10/14/19 13:20 Blood Culture - Preliminary Blood - Peripheral Venous NO GROWTH OBTAINED AFTER 48 HOURS, INCUBATION TO CONTINUE FOR 3 DAYS. 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
--- NOTE | 2019-10-17 14:17 | PN.GI ---
GI Progress Note Subjective: advance diet , abdominal pain negligible - Objective Vital Signs: Vital Signs Temperature 97.7 F 10/17/19 13:31 Pulse Rate 71 10/17/19 13:31 Respiratory Rate 20 10/17/19 13:31 Blood Pressure 138/76 10/17/19 13:31 O2 Sat by Pulse Oximetry (%) 98 10/16/19 09:00 Constitutional: Well Nourished Eyes: Yes: Conjunctiva Clear HENT: Yes: Atraumatic, Other ...Palpate: Yes: Soft. No: Firm/Rigid, Guarding, Hepatomegaly, Mass, Pulsatile Mass, Splenomegaly, Tenderness Labs: CBC, BMP 10/16/19 08:35 10/16/19 08:35 INR, PTT INR 1.07 (0.83-1.09) 10/14/19 03:00 Problem List - Problems (1) Diverticulitis Assessment/Plan: R> resolving low residue lactose free Dr Rodas will assum care in am Code(s): K57.92 - DVTRCLI OF INTEST, PART UNSP, W/O PERF OR ABSCESS W/O BLEED
[2019-10-18] MEDS ORDERED: PIPERACILLIN/TAZOBACTAM 3.375 GM VIAL IVPB ONE ×3 (02:03→17:32)
[2019-10-18] MEDS ORDERED: DEXTROSE 5%-WATER - 50 ML IVPB ONE ×3 (02:04→17:32)
[2019-10-18] MEDS: PIPERACILLIN/TAZOB 3.375 GM 3.375 GM in DEXTROSE 5%-WATER - 50 ML IVPB SCH ×3 (02:14→17:43)
[2019-10-18] MEDS: LEVOTHYROXINE NA 25 MCG TABLET (FP) PO SCH (06:15)
--- NOTE | 2019-10-18 08:48 | PN ---
Progress Note, Physician - Current Medication List Current Medications: Active Medications Acetaminophen (Tylenol -) 650 mg PO Q6H PRN PRN Reason: FEVER Last Admin: 10/16/19 06:25 Dose: 650 mg Albuterol Sulfate (Ventolin 0.083% Nebulizer Soln -) 1 amp NEB Q6H PRN PRN Reason: SHORT OF BREATH/WHEEZING Fluticasone Propionate (Flonase -) 2 spray NS BID [facility] Last Admin: 10/17/19 21:40 Dose: 2 spr Folic Acid (Folic Acid -) 1 mg PO DAILY [facility] Last Admin: 10/17/19 09:09 Dose: 1 mg Heparin Sodium (Porcine) (Heparin -) 5,000 unit SQ BID [facility] Last Admin: 10/17/19 21:40 Dose: 5,000 unit Dextrose/Sodium Chloride (D5-Ns -) 1,000 mls @ 75 mls/hr IV ASDIR [facility] Last Admin: 10/17/19 09:06 Dose: 75 mls/hr Piperacillin Sod/Tazobactam (Sod 3.375 gm/ Dextrose) 50 mls @ 100 mls/hr IVPB Q8H-IV [facility]; Protocol Last Admin: 10/18/19 02:14 Dose: 100 mls/hr Metronidazole (Flagyl 500mg Premixed Ivpb -) 500 mg in 100 mls @ 100 mls/hr IVPB Q8H-IV [facility] Last Admin: 10/18/19 02:49 Dose: 100 mls/hr Levothyroxine Sodium (Synthroid -) 25 mcg PO DAILY@0700 [facility] Last Admin: 10/18/19 06:15 Dose: 25 mcg Loratadine (Claritin -) 10 mg PO DAILY [facility] Last Admin: 10/17/19 09:09 Dose: 10 mg Meclizine HCl (Antivert -) 25 mg PO TID PRN PRN Reason: VERTIGO Multivitamins/Minerals/Vitamin C (Tab-A-Vit -) 1 tab PO DAILY [facility] Last Admin: 10/17/19 09:09 Dose: 1 tab Nicotine (Nicoderm Patch -) 7 mg TD DAILY [facility] Last Admin: 10/17/19 09:09 Dose: Not Given Pantoprazole Sodium (Protonix -) 40 mg PO DAILY [facility] Last Admin: 10/17/19 09:09 Dose: 40 mg Polysaccharide Iron Complex (Niferex-150 -) 150 mg PO DAILY [facility] Last Admin: 10/17/19 09:09 Dose: 150 mg Prednisone (Deltasone -) 20 mg PO DAILY [facility] Last Admin: 10/17/19 09:09 Dose: 20 mg Thiamine HCl (Vitamin B1 -) 100 mg PO DAILY [facility] Last Admin: 10/17/19 09:09 Dose: 100 mg - Objective Vital Signs: Vital Signs Temperature 98.3 F 10/17/19 19:43 Pulse Rate 71 10/17/19 19:43 Respiratory Rate 19 10/17/19 19:43 Blood Pressure 138/82 10/17/19 19:43 O2 Sat by Pulse Oximetry (%) 98 10/17/19 09:00 Cardiovascular: Yes: Regular Rate and Rhythm Respiratory: Yes: Regular, CTA Bilaterally Gastrointestinal: Yes: Normal Bowel Sounds, Soft. No: Tenderness Labs: CBC, BMP 10/16/19 08:35 10/16/19 08:35 INR, PTT INR 1.07 (0.83-1.09) 10/14/19 03:00 Assessment/Plan (1) Diverticulitis Assessment/Plan: -GI on board -Metronidazole and Zosyn -leukocytosis--12-Repeat -afebrile -CTAP shows findings consistent with acute sigmoid diverticulitis without abscess formation -IV hydration -tolerating regular foods -Stool OB neg Code(s): K57.92 - DVTRCLI OF INTEST, PART UNSP, W/O PERF OR ABSCESS W/O BLEED (2) Abdominal pain Assessment/Plan: -GI consult -Metronidazole and Zosyn -leukocytosis--12 -afebrile -CTAP shows findings consistent with acute sigmoid diverticulitis without abscess formation -IV hydration Code(s): R10.9 - UNSPECIFIED ABDOMINAL PAIN Qualifiers: Abdominal location: lower abdomen, unspecified Qualified Code(s): R10.30 - Lower abdominal pain, unspecified (3) Alcohol dependence Assessment/Plan: -Ativan prn for anxiety/agitation -Thiamine, MVI, Folic Acid -fall precaution -seizure precaution Code(s): F10.20 - ALCOHOL DEPENDENCE, UNCOMPLICATED (4) COPD (chronic obstructive pulmonary disease) Assessment/Plan: -keep SpO2 >90% -O2 via NC prn for SOB -prednisone daily, PPI for GI protection -bronchodilators Code(s): J44.9 - CHRONIC OBSTRUCTIVE PULMONARY DISEASE, UNSPECIFIED Qualifiers: COPD type: unspecified COPD Qualified Code(s): J44.9 - Chronic obstructive pulmonary disease, unspecified (5) Fever Assessment/Plan: -afebrile now -Tylenol prn for temp >100F -leukoctyosis improved -CXR shows no sign of infiltrate or failure -BC: Microbiology 10/14/19 13:24 Blood Culture - Preliminary Blood - Peripheral Venous NO GROWTH OBTAINED AFTER 48 HOURS, INCUBATION TO CONTINUE FOR 3 DAYS. 10/14/19 13:20 Blood Culture - Preliminary Blood - Peripheral Venous NO GROWTH OBTAINED AFTER 48 HOURS, INCUBATION TO CONTINUE FOR 3 DAYS. 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
[2019-10-18] MEDS: IRON POLYSACCHARIDES 150 MG CAPSULE PO SCH (09:34)
[2019-10-18] MEDS: predniSONE 20 MG TABLET (UD) PO SCH (09:34)
[2019-10-18] MEDS: LORATADINE 10 MG TABLET PO SCH (09:34)
[2019-10-18] MEDS: PANTOPRAZOLE 40 MG TABLET PO SCH (09:34)
[2019-10-18] MEDS: MULTIVITAMINS (DAILY MVI) TABLET (FP) PO SCH (09:34)
[2019-10-18] MEDS: THIAMINE HCL 100 MG TABLET (FP) PO SCH (09:35)
[2019-10-18] MEDS: FOLIC ACID 1 MG TABLET (FP) PO SCH (09:35)
[2019-10-18] MEDS: NICOTINE 7 MG/24 HOURS TOPICAL PATCH TD SCH (09:35)
[2019-10-18] MEDS: HEPARIN NA (PORCINE) 5,000 UNITS/ML 1ML VIAL SQ SCH ×2 (09:35→21:08)
[2019-10-18] MEDS: FLUTICASONE PROP 0.05% 16 GM NASAL SPRAY NS SCH ×2 (09:43→21:05)
[2019-10-18 10:27] LABS: BASO % 0.5 % (0-2.0); EOS % 1.4 % (0-4.5); HEMATOCRIT 35.8 % (35.4-49); HEMOGLOBIN 11.9 GM/dL (11.7-16.9); LYMPH % 16.1 % (8-40); MCH 31.2 pg (25.7-33.7); MCHC 33.2 g/dl (32.0-35.9); MEAN CELL VOLUME 94.1 fl (80-96); MEAN PLT VOLUME 7.4 fl (7.5-11.1); PLATELET COUNT 398 K/MM3 (134-434); RBC 3.81 M/mm3 (4.00-5.60); RDW 13.2 % (11.9-15.9); WHITE BLOOD COUNT 11.1 K/mm3 (4.0-10.0)
[2019-10-18 10:55] LABS: ALBUMIN 3.1 g/dl (3.4-5.0); BILIRUBIN,TOTAL 0.2 mg/dL (0.2-1); BLOOD UREA NITROGEN 6.5 mg/dL (7-18); CALCIUM 8.6 mg/dL (8.5-10.1); CREATININE 0.8 mg/dL (0.55-1.3); POTASSIUM 3.2 mmol/L (3.5-5.1)
[2019-10-19] MEDS ORDERED: DEXTROSE 5%-WATER - 50 ML IVPB ONE ×3 (01:32→17:24)
[2019-10-19] MEDS ORDERED: PIPERACILLIN/TAZOBACTAM 3.375 GM VIAL IVPB ONE ×3 (01:32→17:24)
[2019-10-19] MEDS: PIPERACILLIN/TAZOB 3.375 GM 3.375 GM in DEXTROSE 5%-WATER - 50 ML IVPB SCH ×3 (01:42→17:31)
[2019-10-19] MEDS: DEXTROSE 5%-NORMAL SALINE 1,000 ML IV SCH (05:45)
[2019-10-19] MEDS: LEVOTHYROXINE NA 25 MCG TABLET (FP) PO SCH (06:10)
[2019-10-19] MEDS: PANTOPRAZOLE 40 MG TABLET PO SCH (09:53)
[2019-10-19] MEDS: HEPARIN NA (PORCINE) 5,000 UNITS/ML 1ML VIAL SQ SCH ×2 (09:54→22:07)
[2019-10-19] MEDS: FOLIC ACID 1 MG TABLET (FP) PO SCH (09:54)
[2019-10-19] MEDS: IRON POLYSACCHARIDES 150 MG CAPSULE PO SCH (09:57)
[2019-10-19] MEDS: LORATADINE 10 MG TABLET PO SCH (09:57)
[2019-10-19] MEDS: predniSONE 20 MG TABLET (UD) PO SCH (09:57)
[2019-10-19] MEDS: FLUTICASONE PROP 0.05% 16 GM NASAL SPRAY NS SCH ×3 (09:57→22:47)
[2019-10-19] MEDS: NICOTINE 7 MG/24 HOURS TOPICAL PATCH TD SCH (09:57)
[2019-10-19] MEDS: MULTIVITAMINS (DAILY MVI) TABLET (FP) PO SCH (09:57)
[2019-10-19] MEDS: THIAMINE HCL 100 MG TABLET (FP) PO SCH (09:58)
[2019-10-19] MEDS ORDERED: POTASSIUM CHLORIDE TABS 20 MEQ TABLET.ER (FP) PO ONE (11:10)
--- NOTE | 2019-10-19 12:54 | PN ---
Progress Note, Physician Chief Complaint: Diverticulitis History of Present Illness: NAD Denies any further abd pain Seen by GI - Current Medication List Current Medications: Active Medications Acetaminophen (Tylenol -) 650 mg PO Q6H PRN PRN Reason: FEVER Last Admin: 10/16/19 06:25 Dose: 650 mg Albuterol Sulfate (Ventolin 0.083% Nebulizer Soln -) 1 amp NEB Q6H PRN PRN Reason: SHORT OF BREATH/WHEEZING Fluticasone Propionate (Flonase -) 2 spray NS BID [facility] Last Admin: 10/19/19 09:57 Dose: 2 spr Folic Acid (Folic Acid -) 1 mg PO DAILY [facility] Last Admin: 10/19/19 09:54 Dose: 1 mg Heparin Sodium (Porcine) (Heparin -) 5,000 unit SQ BID [facility] Last Admin: 10/19/19 09:54 Dose: 5,000 unit Piperacillin Sod/Tazobactam (Sod 3.375 gm/ Dextrose) 50 mls @ 100 mls/hr IVPB Q8H-IV [facility]; Protocol Last Admin: 10/19/19 09:52 Dose: 100 mls/hr Metronidazole (Flagyl 500mg Premixed Ivpb -) 500 mg in 100 mls @ 100 mls/hr IVPB Q8H-IV [facility] Last Admin: 10/19/19 11:02 Dose: 100 mls/hr Levothyroxine Sodium (Synthroid -) 25 mcg PO DAILY@0700 [facility] Last Admin: 10/19/19 06:10 Dose: 25 mcg Loratadine (Claritin -) 10 mg PO DAILY [facility] Last Admin: 10/19/19 09:57 Dose: 10 mg Meclizine HCl (Antivert -) 25 mg PO TID PRN PRN Reason: VERTIGO Multivitamins/Minerals/Vitamin C (Tab-A-Vit -) 1 tab PO DAILY [facility] Last Admin: 10/19/19 09:57 Dose: 1 tab Nicotine (Nicoderm Patch -) 7 mg TD DAILY [facility] Last Admin: 10/19/19 09:57 Dose: Not Given Pantoprazole Sodium (Protonix -) 40 mg PO DAILY [facility] Last Admin: 10/19/19 09:53 Dose: 40 mg Polysaccharide Iron Complex (Niferex-150 -) 150 mg PO DAILY [facility] Last Admin: 10/19/19 09:57 Dose: 150 mg Prednisone (Deltasone -) 20 mg PO DAILY [facility] Last Admin: 10/19/19 09:57 Dose: 20 mg Thiamine HCl (Vitamin B1 -) 100 mg PO DAILY [facility] Last Admin: 10/19/19 09:58 Dose: 100 mg - Objective Vital Signs: Vital Signs Temperature 98.0 F 10/19/19 10:00 Pulse Rate 78 10/19/19 10:00 Respiratory Rate 20 10/19/19 10:00 Blood Pressure 144/80 10/19/19 10:00 O2 Sat by Pulse Oximetry (%) 96 10/18/19 21:00 Constitutional: Yes: No Distress, Calm, Cachectic Cardiovascular: Yes: Regular Rate and Rhythm Respiratory: Yes: Regular Gastrointestinal: Yes: Normal Bowel Sounds, Soft Genitourinary: Yes: WNL Musculoskeletal: Yes: WNL Extremities: Yes: WNL Edema: No Peripheral Pulses WNL: Yes Neurological: Yes: Alert, Oriented Psychiatric: Yes: Alert, Oriented Labs: CBC, BMP 10/18/19 09:52 10/18/19 09:52 INR, PTT INR 1.07 (0.83-1.09) 10/14/19 03:00 Problem List - Problems (1) Hypokalemia Assessment/Plan: -Recheck BMP -KCl 40 meq po once -repeat BMP in AM Problems reviewed: Yes Code(s): E87.6 - HYPOKALEMIA Assessment/Plan (1) Diverticulitis Assessment/Plan: -GI on board -Metronidazole and Zosyn -leukocytosis -afebrile -CTAP shows findings consistent with acute sigmoid diverticulitis without abscess formation -d/c IVF, encourage PO fluids -tolerating regular foods -Stool OB neg Code(s): K57.92 - DVTRCLI OF INTEST, PART UNSP, W/O PERF OR ABSCESS W/O BLEED (2) Abdominal pain Assessment/Plan: -GI consult -Metronidazole and Zosyn -leukocytosis -afebrile -CTAP shows findings consistent with acute sigmoid diverticulitis without abscess formation -Low fiber, lactose free diet Code(s): R10.9 - UNSPECIFIED ABDOMINAL PAIN Qualifiers: Abdominal location: lower abdomen, unspecified Qualified Code(s): R10.30 - Lower abdominal pain, unspecified (3) Alcohol dependence Assessment/Plan: -Drinks about 7 beers daily -Ativan prn for anxiety/agitation -Thiamine, MVI, Folic Acid -fall precaution -seizure precaution Code(s): F10.20 - ALCOHOL DEPENDENCE, UNCOMPLICATED (4) COPD (chronic obstructive pulmonary disease) Assessment/Plan: -keep SpO2 >90% -O2 via NC prn for SOB -prednisone daily, PPI for GI protection -bronchodilators Code(s): J44.9 - CHRONIC OBSTRUCTIVE PULMONARY DISEASE, UNSPECIFIED Qualifiers: COPD type: unspecified COPD Qualified Code(s): J44.9 - Chronic obstructive pulmonary disease, unspecified (5) Fever Assessment/Plan: -Tylenol prn for temp >100F -leukoctyosis improved -CXR shows no sign of infiltrate or failure -BC: Microbiology 10/14/19 13:24 Blood Culture - Preliminary Blood - Peripheral Venous NO GROWTH OBTAINED AFTER 48 HOURS, INCUBATION TO CONTINUE FOR 3 DAYS. 10/14/19 13:20 Blood Culture - Preliminary Blood - Peripheral Venous NO GROWTH OBTAINED AFTER 48 HOURS, INCUBATION TO CONTINUE FOR 3 DAYS. 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
[2019-10-19 14:24] LABS: CALCIUM 8.3 mg/dL (8.5-10.1); CREATININE 0.8 mg/dL (0.55-1.3)
[2019-10-19 14:26] LABS: BLOOD UREA NITROGEN 2.9 mg/dL (7-18); POTASSIUM 2.7 mmol/L (3.5-5.1)
[2019-10-19] MEDS: POTASSIUM CHLORIDE TABS 10 MEQ TABLET.ER (FP) PO SCH (15:00)
[2019-10-19] MEDS: KCL 10 MEQ IVPB 10 MEQ/100 ML INFUS.BAG IVPB SCH ×3 (15:00→17:29)
--- NOTE | 2019-10-19 17:38 | PN.GI ---
GI Progress Note Subjective: No acute events States having had formed blcak BM'c for 3 days Has been started on iron - Objective Vital Signs: Vital Signs Temperature 98.1 F 10/19/19 14:59 Pulse Rate 84 10/19/19 14:59 Respiratory Rate 20 10/19/19 14:59 Blood Pressure 135/93 10/19/19 14:59 O2 Sat by Pulse Oximetry (%) 96 10/18/19 21:00 Constitutional: Calm Eyes: No: Sclera Icterus Cardiovascular: Yes: Regular Rate and Rhythm Respiratory: Yes: CTA Bilaterally Gastrointestinal Inspection: No: Distention ...Auscultate: Yes: Normoactive Bowel Sounds ...Palpate: Yes: Soft, Tenderness (Improved suprapubic and left lower abdominal TTP). No: Hepatomegaly, Splenomegaly ...Percussion: No: Tympanitic ...Rectal Exam: Yes: Other (No external lesions no masses. gauaic negative greenish stool) Neurological: Yes: Alert Labs: CBC, BMP 10/18/19 09:52 10/19/19 13:00 INR, PTT INR 1.07 (0.83-1.09) 10/14/19 03:00 Hepatic Panel Total Bilirubin 0.2 mg/dL (0.2-1) 10/18/19 09:52 AST 12 U/L (15-37) L 10/18/19 09:52 ALT 17 U/L (13-61) 10/18/19 09:52 Alkaline Phosphatase 61 U/L (45-117) 10/18/19 09:52 Albumin 3.1 g/dl (3.4-5.0) L 10/18/19 09:52 Problem List - Problems (1) Diverticulitis Assessment/Plan: Clinically much improved Total 10 days of antibiotics including days on IV antibiotics while admitted Will need colonoscopy in 6-8 weeks for follow-up Code(s): K57.92 - DVTRCLI OF INTEST, PART UNSP, W/O PERF OR ABSCESS W/O BLEED
[2019-10-19] MEDS: D5-NS + 40 MEQ KCL - 40 MEQ/1,000 ML INFUS.BAG IV SCH (18:58)
[2019-10-20] MEDS ORDERED: PIPERACILLIN/TAZOBACTAM 3.375 GM VIAL IVPB ONE ×2 (02:13→09:58)
[2019-10-20] MEDS ORDERED: DEXTROSE 5%-WATER - 50 ML IVPB ONE ×2 (02:13→09:59)
[2019-10-20] MEDS: PIPERACILLIN/TAZOB 3.375 GM 3.375 GM in DEXTROSE 5%-WATER - 50 ML IVPB SCH ×2 (02:17→10:39)
[2019-10-20] MEDS: LEVOTHYROXINE NA 25 MCG TABLET (FP) PO SCH (06:54)
[2019-10-20] MEDS: D5-NS + 40 MEQ KCL - 40 MEQ/1,000 ML INFUS.BAG IV SCH (06:59)
[2019-10-20 09:43] LABS: CALCIUM 8.7 mg/dL (8.5-10.1); CREATININE 0.7 mg/dL (0.55-1.3); POTASSIUM 4.2 mmol/L (3.5-5.1)
[2019-10-20 09:55] LABS: BLOOD UREA NITROGEN 2.9 mg/dL (7-18)
[2019-10-20] MEDS: NICOTINE 7 MG/24 HOURS TOPICAL PATCH TD SCH ×2 (10:02→10:09)
[2019-10-20] MEDS: PANTOPRAZOLE 40 MG TABLET PO SCH (10:02)
[2019-10-20] MEDS: THIAMINE HCL 100 MG TABLET (FP) PO SCH (10:02)
[2019-10-20] MEDS: predniSONE 20 MG TABLET (UD) PO SCH (10:02)
[2019-10-20] MEDS: LORATADINE 10 MG TABLET PO SCH (10:03)
[2019-10-20] MEDS: FLUTICASONE PROP 0.05% 16 GM NASAL SPRAY NS SCH (10:03)
[2019-10-20] MEDS: POTASSIUM CHLORIDE TABS 10 MEQ TABLET.ER (FP) PO SCH (10:03)
[2019-10-20] MEDS: MULTIVITAMINS (DAILY MVI) TABLET (FP) PO SCH (10:03)
[2019-10-20] MEDS: IRON POLYSACCHARIDES 150 MG CAPSULE PO SCH (10:03)
[2019-10-20] MEDS: FOLIC ACID 1 MG TABLET (FP) PO SCH (10:03)
--- NOTE | 2019-10-20 10:28 | DS ---
Physical Examination Vital Signs: Vital Signs Temperature 97.8 F 10/20/19 09:37 Pulse Rate 69 10/20/19 09:37 Respiratory Rate 20 10/20/19 09:37 Blood Pressure 140/77 10/20/19 09:37 O2 Sat by Pulse Oximetry (%) 96 10/18/19 21:00 Findings/Remarks: Patient is a 54 y/o male with past medical history of COPD and Alcohol Dependence. Patient presented to ER with complaints of lower abdominal pain accompanied with dark stools. Patient admits to daily alcohol use of 4-5 beers/ day. Denies nausea, vomiting, chest pain, SOB, or palpitations. Assessment/Plan (1) Diverticulitis Assessment/Plan: -GI on board -Metronidazole and Zosyn---transition to flagyl + Levaquin PO -leukocytosis -afebrile -CTAP shows findings consistent with acute sigmoid diverticulitis without abscess formation -d/c IVF, encourage PO fluids -tolerating regular foods -Stool OB neg Code(s): K57.92 - DVTRCLI OF INTEST, PART UNSP, W/O PERF OR ABSCESS W/O BLEED (2) Abdominal pain Assessment/Plan: -GI consult -Metronidazole and Zosyn -leukocytosis -afebrile -CTAP shows findings consistent with acute sigmoid diverticulitis without abscess formation -Low fiber, lactose free diet Code(s): R10.9 - UNSPECIFIED ABDOMINAL PAIN Qualifiers: Abdominal location: lower abdomen, unspecified Qualified Code(s): R10.30 - Lower abdominal pain, unspecified (3) Alcohol dependence Assessment/Plan: -Drinks about 7 beers daily -Ativan prn for anxiety/agitation -Thiamine, MVI, Folic Acid -fall precaution -seizure precaution Code(s): F10.20 - ALCOHOL DEPENDENCE, UNCOMPLICATED (4) COPD (chronic obstructive pulmonary disease) Assessment/Plan: -keep SpO2 >90% -O2 via NC prn for SOB -prednisone daily, PPI for GI protection -bronchodilators Code(s): J44.9 - CHRONIC OBSTRUCTIVE PULMONARY DISEASE, UNSPECIFIED Qualifiers: COPD type: unspecified COPD Qualified Code(s): J44.9 - Chronic obstructive pulmonary disease, unspecified (5) Fever Assessment/Plan: -Tylenol prn for temp >100F -leukoctyosis improved -CXR shows no sign of infiltrate or failure -BC: Microbiology 10/14/19 13:24 Blood Culture - Preliminary Blood - Peripheral Venous NO GROWTH OBTAINED AFTER 48 HOURS, INCUBATION TO CONTINUE FOR 3 DAYS. 10/14/19 13:20 Blood Culture - Preliminary Blood - Peripheral Venous NO GROWTH OBTAINED AFTER 48 HOURS, INCUBATION TO CONTINUE FOR 3 DAYS. 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 Qualified Code(s): E03.8 - Other specified hypothyroidism; E06.3 - Autoimmune thyroiditis (7) Hypokalemia Assessment/Plan: -resolved -Continue KCl 40 meq po daily Code(s): E87.6 - HYPOKALEMIA Constitutional: Yes: No Distress, Calm, Cachectic Cardiovascular: Yes: Regular Rate and Rhythm Respiratory: Yes: Regular Gastrointestinal: Yes: Normal Bowel Sounds, Soft Renal/: Yes: WNL Musculoskeletal: Yes: WNL Extremities: Yes: WNL Peripheral Pulses WNL: Yes Neurological: Yes: Alert, Oriented Psychiatric: Yes: Alert, Oriented Labs: CBC, BMP 10/18/19 09:52 10/20/19 08:33 Discharge Summary Problems reviewed: Yes Reason For Visit: DIVERTICULITIS,ABDOMINAL PAIN Current Active Problems Diverticulitis (Acute) Hypokalemia (Acute) LLQ abdominal pain (Acute) Laboratory Last Values WBC 11.1 K/mm3 (4.0-10.0) H 10/18/19 09:52 RBC 3.81 M/mm3 (4.00-5.60) L 10/18/19 09:52 Hgb 11.9 GM/dL (11.7-16.9) 10/18/19 09:52 Hct 35.8 % (35.4-49) 10/18/19 09:52 MCV 94.1 fl (80-96) 10/18/19 09:52 MCH 31.2 pg (25.7-33.7) 10/18/19 09:52 MCHC 33.2 g/dl (32.0-35.9) 10/18/19 09:52 RDW 13.2 % (11.9-15.9) 10/18/19 09:52 Plt Count 398 K/MM3 (134-434) 10/18/19 09:52 MPV 7.4 fl (7.5-11.1) L 10/18/19 09:52 Absolute Neuts (auto) 8.4 K/mm3 (1.5-8.0) H 10/18/19 09:52 Neutrophils % 76.0 % (42.8-82.8) 10/18/19 09:52 Lymphocytes % 16.1 % (8-40) D 10/18/19 09:52 Monocytes % 6.0 % (3.8-10.2) 10/18/19 09:52 Eosinophils % 1.4 % (0-4.5) 10/18/19 09:52 Basophils % 0.5 % (0-2.0) 10/18/19 09:52 Nucleated RBC % 0 % (0-0) 10/18/19 09:52 PT with INR 12.60 SEC (9.7-13.0) 10/14/19 03:00 INR 1.07 (0.83-1.09) 10/14/19 03:00 PTT (Actin FS) 38.2 SECONDS (25.2-36.5) H 10/14/19 03:00 Sodium 138 mmol/L (136-145) 10/20/19 08:33 Potassium 4.2 mmol/L (3.5-5.1) 10/20/19 08:33 Chloride 106 mmol/L (98-107) 10/20/19 08:33 Carbon Dioxide 28 mmol/L (21-32) 10/20/19 08:33 Anion Gap 5 MMOL/L (8-16) L 10/20/19 08:33 BUN 2.9 mg/dL (7-18) L* 10/20/19 08:33 Creatinine 0.7 mg/dL (0.55-1.3) 10/20/19 08:33 Est GFR (CKD-EPI)AfAm 123.13 10/20/19 08:33 Est GFR (CKD-EPI)NonAf 106.24 10/20/19 08:33 POC Glucometer 132 UNITS (80-120) 10/17/19 11:41 Random Glucose 113 mg/dL (74-106) H 10/20/19 08:33 Calcium 8.7 mg/dL (8.5-10.1) 10/20/19 08:33 Total Bilirubin 0.2 mg/dL (0.2-1) 10/18/19 09:52 AST 12 U/L (15-37) L 10/18/19 09:52 ALT 17 U/L (13-61) 10/18/19 09:52 Alkaline Phosphatase 61 U/L (45-117) 10/18/19 09:52 C-Reactive Protein 4.8 MG/DL (0.00-0.3) H 10/16/19 08:35 Total Protein 6.0 g/dl (6.4-8.2) L 10/18/19 09:52 Albumin 3.1 g/dl (3.4-5.0) L 10/18/19 09:52 TSH 6.18 uIU/ml (0.358-3.74) H D 10/15/19 09:03 Urine Color Yellow 10/14/19 03:10 Urine Appearance Clear 10/14/19 03:10 Urine pH 6.0 (5.0-8.0) 10/14/19 03:10 Ur Specific [place] 1.005 (1.010-1.035) L 10/14/19 03:10 Urine Protein Negative (NEGATIVE) 10/14/19 03:10 Urine Glucose (UA) Negative (NEGATIVE) 10/14/19 03:10 Urine Ketones Negative (NEGATIVE) 10/14/19 03:10 Urine Blood Negative (NEGATIVE) 10/14/19 03:10 Urine Nitrite Negative (NEGATIVE) 10/14/19 03:10 Urine Bilirubin Negative (NEGATIVE) 10/14/19 03:10 Urine Urobilinogen 0.2 mg/dL (0.2-1.0) 10/14/19 03:10 Ur Leukocyte Esterase Negative (NEGATIVE) 10/14/19 03:10 Stool Occult Blood Negative (NEGATIVE) 10/14/19 03:12 Blood Type A POSITIVE 10/14/19 10:40 Antibody Screen Negative 10/14/19 10:40 Microbiology 10/14/19 13:24 Blood - Peripheral Venous Blood Culture - Final NO GROWTH AFTER 5 DAYS INCUBATION 10/14/19 13:20 Blood - Peripheral Venous Blood Culture - Final NO GROWTH AFTER 5 DAYS INCUBATION 10/14/19 03:10 Urine - Urine Clean Catch Urine Culture - Final NO GROWTH OBTAINED Vital Signs Temp 97.8 F 10/20/19 09:37 Pulse 69 10/20/19 09:37 Resp 20 10/20/19 09:37 BP 140/77 10/20/19 09:37 Pulse Ox 96 10/18/19 21:00 Intake & Output 10/19/19 10/19/19 10/20/19 11:59 23:59 11:59 Intake Total 1250 1900 1250 Output Total 2 Balance 1250 1898 1250 Intake: IV 750 750 750 D5-Ns - 1,000 ml @ 75 mls 750 750 750 /hr IV ASDIR [facility] Rx#: [id number] IVPB 150 600 150 Oral 350 550 350 Output: Urine 2 Void 2 Other: Voiding Method Toilet Toilet Urinal # Unmeasured Voids Void 3 Bowel Movement Yes Yes # Bowel Movements 1 1 Condition: Stable - Instructions Diet, Activity, Other Instructions: Metronidazole 500 mg 3 x day for 5 days Levofloxacin 500 mg daily x 5 days Potassium chloride 20 meq daily Iron polysaccharide 150 mg daily Pantoprazole 40 mg daily in AM follow up with GI- Dr Kartik Rodas MD. Please call to make the appointment Referrals: Memo Ma MD [Primary Care Provider] - He Rodas DO [Staff Physician] - Disposition: HOME - Home Medications Comprehensive Discharge Medication List: Ambulatory Orders Amox-Tr/K Cl [Augmentin 875-125mg Tablet -] 1 tab PO BID@0800,1730 #12 tablet Fluticasone Prop 0.05% Nasal [Flonase -] 2 spray NS BID #1 spray 10/08/19 Folic Acid - 1 mg PO DAILY #30 tablet 10/08/19 Iron Polysaccharides [Niferex-150 -] 150 mg PO DAILY #30 capsule 10/08/19 Levothyroxine [Synthroid -] 25 mcg PO DAILY@0700 #30 tablet 10/08/19 Loratadine [Claritin -] 10 mg PO DAILY #30 tablet 10/08/19 Meclizine HCl [Antivert -] 25 mg PO TID PRN #60 tablet 10/08/19 Multivitamins [Multivit ([facility] Formulary)] 1 tab PO DAILY #30 tab 10/08/19 Nicotine Patch [Nicoderm Patch -] 7 mg TD DAILY #30 patch 10/08/19 Pantoprazole Sodium [Protonix -] 40 mg PO DAILY #30 tablet.ec 10/08/19 Thiamine HCl [Vitamin B1 -] 100 mg PO DAILY #30 tablet 10/08/19 predniSONE [Deltasone -] 20 mg PO DAILY #30 tablet 10/08/19 Prescription Drug Monitoring Program (I-STOP) results: I-STOP reviewed and no issues identified
[2019-10-20] MEDS: HEPARIN NA (PORCINE) 5,000 UNITS/ML 1ML VIAL SQ SCH (10:39)
[2019-10-20 12:03] VITALS: BP 134/76; PULSE 73; TEMP 98
== END 2019-10-20 16:24 | disposition home or self-care (01) | DRG 244 ==
LOC: JER 23:10 → JERBED 10-14 05:52 → J6S 10-14 19:32
PROVIDERS: ADMIT Family Medicine; ATTEND Family Medicine
DX: K57.32 Diverticulitis of large intestine without perforation or abscess without bleeding (principal); D72.829 Elevated white blood cell count, unspecified; R10.32 Left lower quadrant pain; J44.9 Chronic obstructive pulmonary disease, unspecified; E87.6 Hypokalemia; E06.3 Autoimmune thyroiditis; E03.8 Other specified hypothyroidism; F10.20 Alcohol dependence, uncomplicated; E87.1 Hypo-osmolality and hyponatremia; K52.9 Noninfective gastroenteritis and colitis, unspecified; K70.9 Alcoholic liver disease, unspecified; R16.0 Hepatomegaly, not elsewhere classified; F20.9 Schizophrenia, unspecified; D64.9 Anemia, unspecified; L29.8 Other pruritus; F17.210 Nicotine dependence, cigarettes, uncomplicated; Z87.19 Personal history of other diseases of the digestive system
CPT/HCPCS: 36415; 71045-TC-FY; 74177-TC; 80048; 80053; 81003; 82272; 82962; 84443; 85025; 85610; 85730; 86140; 86850; 86900; 86901; 87040; 87086; 93005; 93010; 99285-25; J1644; J7030; Q9967

== ENCOUNTER 2019-11-11 14:22 | Inpatient (IN) | payer OTHER ==
[2019-11-11 14:38] VITALS: BMI 23.6
--- NOTE | 2019-11-11 15:14 | PDOC ---
History of Present Illness - General Chief Complaint: Weakness Stated Complaint: WELLFARE CHECK Time Seen by Provider: 11/11/19 14:59 - History of Present Illness Initial Comments: Salazar Alvarez is a 54 y/o male with reported PMH significant for diverticulitis, COPD, ETOH use disorder, hyponatremia, anemia, chronic low back pain, chronic rash. Currently homeless and lives in his van. He was BIBEMS today because of a welfare check called by some of the people in his living situation. Reports that he was recently discharged from the hospital for diverticulitis. Reports that he continues to have lower abdominal pain and diarrhea non bloody. Denies fever but reports chills. Denies chest pain, reports mild chronic shortness of breath. Denies dysuria/hematuria. Denies back pain. Reports generalized lower extremity weakness. SocHx: daily smoker, currently homeless Past History - Past Medical History Allergies/Adverse Reactions: Allergies Allergy/AdvReac Type Severity Reaction Status Date / Time aspirin Allergy Unknown Verified 11/11/19 14:25 phenobarbital Allergy Unknown Verified 11/11/19 14:25 Home Medications: Ambulatory Orders Fluticasone Prop 0.05% Nasal [Flonase -] 2 spray NS BID #1 spray 10/08/19 Folic Acid - 1 mg PO DAILY #30 tablet 10/08/19 Iron Polysaccharides [Niferex-150 -] 150 mg PO DAILY #30 capsule 10/08/19 Levothyroxine [Synthroid -] 25 mcg PO DAILY@0700 #30 tablet 10/08/19 Loratadine [Claritin -] 10 mg PO DAILY #30 tablet 10/08/19 Meclizine HCl [Antivert -] 25 mg PO TID PRN #60 tablet 10/08/19 Multivitamins [Multivit ([facility] Form[facility])] 1 tab PO DAILY #30 tab 10/08/19 Nicotine Patch [Nicoderm Patch -] 7 mg TD DAILY #30 patch 10/08/19 Pantoprazole Sodium [Protonix -] 40 mg PO DAILY #30 tablet.ec 10/08/19 Thiamine HCl [Vitamin B1 -] 100 mg PO DAILY #30 tablet 10/08/19 predniSONE [Deltasone -] 20 mg PO DAILY #30 tablet 10/08/19 Acetaminophen [Tylenol .Regular Strength -] 650 mg PO Q6H PRN #240 tablet 10/20/19 Levofloxacin [Levaquin] 500 mg PO DAILY #5 tablet 10/20/19 Metronidazole 500 mg PO TID #15 tablet 10/20/19 Potassium Chloride [K-Dur -] 40 meq PO DAILY #30 tablet.er 10/20/19 Anemia: Yes Asthma: No Cancer: No Cardiac Disorders: No CVA: No COPD: Yes CHF: No Dementia: No Diabetes: No GI Disorders: Yes (colitis, enlarged liver) Disorders: No HTN: No Hypercholesterolemia: No Liver Disease: No Seizures: No Thyroid Disease: No - Surgical History Abdominal Surgery: Yes (hernia bilat) Appendectomy: No Cardiac Surgery: No Cholecystectomy: No Lung Surgery: No Neurologic Surgery: No Orthopedic Surgery: No - Immunization History TDAP Vaccination: Yes Immunization Up to Date: Yes - Psycho Social/Smoking Cessation Hx Smoking History: Current every day smoker Have you smoked in the past 12 months: Yes Number of Cigarettes Smoked Daily: 2 Information on smoking cessation initiated: No 'Breaking Loose' booklet given: 11/02/18 Hx Alcohol Use: Yes Drug/Substance Use Hx: No Substance Use Type: Alcohol Hx Substance Use Treatment: No Review of Systems - Review of Systems Comments:: GENERAL/CONSTITUTIONAL: No fever. Reports chills. Reports generalized lower extremity weakness. HEAD, EYES, EARS, NOSE AND THROAT: No change in vision. No change in hearing. No sore throat._ CARDIOVASCULAR: No chest pain. Reports chronic shortness of breath. RESPIRATORY: Denies cough, hemoptysis_ GASTROINTESTINAL: No nausea, vomiting. Reports diarrhea. GENITOURINARY: No dysuria, frequency, or change in urination._ MUSCULOSKELETAL: No joint or muscle swelling or pain. No neck or back pain._ SKIN: Reports rash over abdomen. NEUROLOGIC: No headache, vertigo, loss of consciousness. ENDOCRINE: No increased thirst. No abnormal weight change_ ALLERGIC/IMMUNOLOGIC: No hives or skin allergy._ *Physical Exam - Vital Signs Last Vital Signs Temp Pulse Resp BP Pulse Ox 98.1 F 104 H 16 128/52 L 99 11/11/19 14:30 11/11/19 14:30 11/11/19 14:30 11/11/19 14:30 11/11/19 14:30 - Physical Exam GENERAL: Awake, alert, and oriented to person/place/time, in no acute distress_ HEAD: No signs of trauma, normocephalic, atraumatic _ EYES: PERRLA, EOMI, sclera anicteric, conjunctiva clear_ ENT: Hearing grossly normal, nares patent, oropharynx clear without exudates. No uvular deviation. Moist mucosa_ NECK: Normal ROM, supple, no lymphadenopathy, JVD, or masses_ LUNGS: No distress, speaks in full sentences, diffuse rhonchi in bilateral upper and lower lung morales. HEART: Regular rate and rhythm, normal S1 and S2, no murmurs appreciated, peripheral pulses normal and equal bilaterally._ ABDOMEN: Soft, TTP LLQ, normoactive bowel sounds. No guarding, no rebound. No masses EXTREMITIES: Normal inspection, Normal range of motion, no edema. No clubbing or cyanosis. 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 3/5 flexion/extension of bilateral hip flexion/extension, knee flexion/extension, dorsiflexion and plantar flexion. NEUROLOGICAL: Cranial nerves II through XII grossly intact. Normal speech, no focal sensorimotor deficits. SKIN: Warm, Dry, normal turgor. Diffuse rash over lower abdomen. ED Treatment Course - LABORATORY CBC & Chemistry Diagram: 11/11/19 15:40 11/12/19 00:17 Medical Decision Making - Medical Decision Making 54M extensive medical history including COPD, diverticulitis, alcohol use disorder. currently homeless and living in his leslie. [facility] for well check. Recently d/c from hospital for diverticulitis. Reports diarrhea non bloody. -cbc, cmp -ekg, trop, cxr -coags, lactic -ct abd pelv -ua, ucx 11/11/19 16:36 Labs reviewed. Will start on 2g magnesium, 20 meq potassium, 20 meq K-dur. Laboratory Last Values WBC 16.8 K/mm3 (4.0-10.0) H 11/11/19 15:40 RBC 4.74 M/mm3 (4.00-5.60) 11/11/19 15:40 Hgb 14.8 GM/dL (11.7-16.9) 11/11/19 15:40 Hct 43.2 % (35.4-49) D 11/11/19 15:40 MCV 91.2 fl (80-96) 11/11/19 15:40 MCH 31.2 pg (25.7-33.7) 11/11/19 15:40 MCHC 34.3 g/dl (32.0-35.9) 11/11/19 15:40 RDW 13.6 % (11.9-15.9) 11/11/19 15:40 Plt Count 505 K/MM3 (134-434) H D 11/11/19 15:40 MPV 6.8 fl (7.5-11.1) L 11/11/19 15:40 Absolute Neuts (auto) 13.6 K/mm3 (1.5-8.0) H 11/11/19 15:40 Neutrophils % 80.5 % (42.8-82.8) 11/11/19 15:40 Lymphocytes % 11.1 % (8-40) D 11/11/19 15:40 Monocytes % 7.2 % (3.8-10.2) 11/11/19 15:40 Eosinophils % 0.9 % (0-4.5) 11/11/19 15:40 Basophils % 0.3 % (0-2.0) 11/11/19 15:40 Nucleated RBC % 0 % (0-0) 11/11/19 15:40 Sodium 126 mmol/L (136-145) L 11/11/19 15:40 Potassium 2.8 mmol/L (3.5-5.1) L* 11/11/19 15:40 Chloride 87 mmol/L (98-107) L 11/11/19 15:40 Carbon Dioxide 33 mmol/L (21-32) H 11/11/19 15:40 Anion Gap 6 MMOL/L (8-16) L 11/11/19 15:40 BUN 6.2 mg/dL (7-18) L 11/11/19 15:40 Creatinine 0.6 mg/dL (0.55-1.3) 11/11/19 15:40 Est GFR (CKD-EPI)AfAm 131.19 11/11/19 15:40 Est GFR (CKD-EPI)NonAf 113.19 11/11/19 15:40 Random Glucose 100 mg/dL (74-106) 11/11/19 15:40 Calcium 8.5 mg/dL (8.5-10.1) 11/11/19 15:40 Total Bilirubin 0.3 mg/dL (0.2-1) 11/11/19 15:40 AST 11 U/L (15-37) L 11/11/19 15:40 ALT 17 U/L (13-61) 11/11/19 15:40 Alkaline Phosphatase 85 U/L (45-117) 11/11/19 15:40 Creatine Kinase 42 U/L (26-308) 11/11/19 15:40 Troponin I < 0.02 ng/ml (0.00-0.05) 11/11/19 15:40 Total Protein 5.6 g/dl (6.4-8.2) L 11/11/19 15:40 Albumin 2.6 g/dl (3.4-5.0) L 11/11/19 15:40 11/11/19 18:17 Labs reviewed. Laboratory Last Values WBC 16.8 K/mm3 (4.0-10.0) H 11/11/19 15:40 RBC 4.74 M/mm3 (4.00-5.60) 11/11/19 15:40 Hgb 14.8 GM/dL (11.7-16.9) 11/11/19 15:40 Hct 43.2 % (35.4-49) D 11/11/19 15:40 MCV 91.2 fl (80-96) 11/11/19 15:40 MCH 31.2 pg (25.7-33.7) 11/11/19 15:40 MCHC 34.3 g/dl (32.0-35.9) 11/11/19 15:40 RDW 13.6 % (11.9-15.9) 11/11/19 15:40 Plt Count 505 K/MM3 (134-434) H D 11/11/19 15:40 MPV 6.8 fl (7.5-11.1) L 11/11/19 15:40 Absolute Neuts (auto) 13.6 K/mm3 (1.5-8.0) H 11/11/19 15:40 Neutrophils % 80.5 % (42.8-82.8) 11/11/19 15:40 Lymphocytes % 11.1 % (8-40) D 11/11/19 15:40 Monocytes % 7.2 % (3.8-10.2) 11/11/19 15:40 Eosinophils % 0.9 % (0-4.5) 11/11/19 15:40 Basophils % 0.3 % (0-2.0) 11/11/19 15:40 Nucleated RBC % 0 % (0-0) 11/11/19 15:40 PT with INR 14.40 SEC (9.7-13.0) H 11/11/19 17:18 INR 1.22 (0.83-1.09) H 11/11/19 17:18 PTT (Actin FS) 31.8 SECONDS (25.2-36.5) 11/11/19 17:18 Sodium 126 mmol/L (136-145) L 11/11/19 15:40 Potassium 2.8 mmol/L (3.5-5.1) L* 11/11/19 15:40 Chloride 87 mmol/L (98-107) L 11/11/19 15:40 Carbon Dioxide 33 mmol/L (21-32) H 11/11/19 15:40 Anion Gap 6 MMOL/L (8-16) L 11/11/19 15:40 BUN 6.2 mg/dL (7-18) L 11/11/19 15:40 Creatinine 0.6 mg/dL (0.55-1.3) 11/11/19 15:40 Est GFR (CKD-EPI)AfAm 131.19 11/11/19 15:40 Est GFR (CKD-EPI)NonAf 113.19 11/11/19 15:40 Random Glucose 100 mg/dL (74-106) 11/11/19 15:40 Lactic Acid 1.1 mmol/L (0.4-2.0) 11/11/19 17:18 Calcium 8.5 mg/dL (8.5-10.1) 11/11/19 15:40 Magnesium 1.9 mg/dL (1.8-2.4) 11/11/19 17:18 Total Bilirubin 0.3 mg/dL (0.2-1) 11/11/19 15:40 AST 11 U/L (15-37) L 11/11/19 15:40 ALT 17 U/L (13-61) 11/11/19 15:40 Alkaline Phosphatase 85 U/L (45-117) 11/11/19 15:40 Creatine Kinase 42 U/L (26-308) 11/11/19 15:40 Troponin I < 0.02 ng/ml (0.00-0.05) 11/11/19 15:40 Total Protein 5.6 g/dl (6.4-8.2) L 11/11/19 15:40 Albumin 2.6 g/dl (3.4-5.0) L 11/11/19 15:40 11/11/19 18:29 EKG shows sinus tachycardia, 105 bpm, no ST elevation, QTc 465. 11/11/19 18:31 Will start zosyn for diverticulitis. Will start IV fluids. 11/11/19 18:32 CXR shows no acute chest pathology, upper lobe bullous changes, scarring and atelectasis mid and lower lung morales. 11/11/19 19:00 Pt signed out to Dr. Nesbitt. Discharge - Discharge Information Problems reviewed: Yes Clinical Impression/Diagnosis: Hyponatremia, Hypochloremia, Hypokalemia, Diverticulitis of large intestine with complication Leukocytosis Qualifiers: Leukocytosis type: unspecified Qualified Code(s): D72.829 - Elevated white blood cell count, unspecified Condition: Guarded - Admission Yes - Follow up/Referral Referrals: Memo Ma MD [Primary Care Provider] - - Patient Discharge Instructions - Post Discharge Activity
[2019-11-11 15:59] LABS: BASO % 0.3 % (0-2.0); EOS % 0.9 % (0-4.5); HEMATOCRIT 43.2 % (35.4-49); HEMOGLOBIN 14.8 GM/dL (11.7-16.9); LYMPH % 11.1 % (8-40); MCH 31.2 pg (25.7-33.7); MCHC 34.3 g/dl (32.0-35.9); MEAN CELL VOLUME 91.2 fl (80-96); MEAN PLT VOLUME 6.8 fl (7.5-11.1); MONO % 7.2 % (3.8-10.2); NEUT % 80.5 % (42.8-82.8); PLATELET COUNT 505 K/MM3 (134-434); RBC 4.74 M/mm3 (4.00-5.60); RDW 13.6 % (11.9-15.9); WHITE BLOOD COUNT 16.8 K/mm3 (4.0-10.0)
--- NOTE | 2019-11-11 16:21 | PDOC ---
Documentation entered by Tanner King SCRIBE, acting as scribe for Rashad Kirkland MD. Rashad Kirkland MD: This documentation has been prepared by the Fernando hoffman Nirvannie, SCRIBE, under my direction and personally reviewed by me in its entirety. I confirm that the documentation accurately reflects all work, treatment, procedures, and medical decision making performed by me. Attending Attestation - Resident Resident Name: CatrachitoMervin - ED Attending Attestation I have performed the following: I have examined & evaluated the patient, The case was reviewed & discussed with the resident, I agree w/resident's findings & plan, Exceptions are as noted - HPI HPI: 11/11/19 15:30 CC: Wellness check HPI: The patient is a 54 year old male, with a significant past medical history of COPD and Alcohol Dependence, who presents to the emergency department for a wellness check. Patient lives in his car and is noncompliant with at home medications. Further friend notes he has lost a significant amount of weight thus, EMS was called. Allergies: Aspirin, phenobarbital Past surgical history: Hernia Repair - right inguinal Social History: Homeless, lives in his car. Alcohol dependence Primary Care Physician: Dr. Ma - Physicial Exam PE: 11/11/19 16:26 Vitals: Triage Vital signs reviewed General Appearance: Thin Head: Atraumatic, Neck: Supple; no Nucal rigidity Chest Wall: Nontender Cardiac: Regular rate and rhythym, no murmurs, no rubs, no gallops, Lungs: Clear to auscultation bilateral, good air movement bilaterally, Abdomen: Soft, non distended, normal bowel sounds, Mild diffuse left-sided left lower quadrant tenderness to palpation no rebound no guarding Extremities: Full range of motion to all extremities, no cyanosis, clubbing, or edema Psych: Normal mood, normal affect - Medical Decision Making 11/11/19 15:31 54 year old male, with a significant past medical history of COPD and Alcohol Dependence, who presents to the emergency department for a wellness check. Plan is: EKG CBC CMP Cardiac Profile UA/UC CXR 11/11/19 16:27 Noncompliant with primary care follow-up noncompliant with recent diverticulitis treatment presents with weakness failure to thrive and worsening abdominal pain We will rescan abdomen check labs likely admission Dr. Rosas to follow up labs, CT and reasses
[2019-11-11 16:32] LABS: ALBUMIN 2.6 g/dl (3.4-5.0); ALK PHOS 85 U/L (45-117); ANION GAP 6 MMOL/L (8-16); BILIRUBIN,TOTAL 0.3 mg/dL (0.2-1); BLOOD UREA NITROGEN 6.2 mg/dL (7-18); CALCIUM 8.5 mg/dL (8.5-10.1); CHLORIDE 87 mmol/L (98-107); CO2 33 mmol/L (21-32); CREATININE 0.6 mg/dL (0.55-1.3); GLUCOSE,RANDOM 100 mg/dL (74-106); SGOT/AST 11 U/L (15-37); SGPT/ALT 17 U/L (13-61); SODIUM 126 mmol/L (136-145); TOT PROT 5.6 g/dl (6.4-8.2)
[2019-11-11 16:34] LABS: POTASSIUM 2.8 mmol/L (3.5-5.1)
[2019-11-11] MEDS ORDERED: MAGNESIUM SULF 50% (8.12 MEQ/2 ML-1 GM VIAL) IVPB ONE (16:35)
[2019-11-11] MEDS ORDERED: POTASSIUM CHLORIDE TABS 20 MEQ TABLET.ER (FP) PO ONE ×3 (16:36→18:33)
[2019-11-11] MEDS ORDERED: POTASSIUM CHLORIDE TABS 10 MEQ TABLET.ER (FP) ONE (17:45)
[2019-11-11] MEDS ORDERED: MAGNESIUM 1GM/D5W - 2 GM/200 ML IVPB IVPB ONE (17:45)
[2019-11-11] MEDS ORDERED: KCL 10 MEQ IVPB 10 MEQ/100 ML INFUS.BAG IVPB ONE ×2 (17:45→19:33)
[2019-11-11 18:03] LABS: INR 1.22 (0.83-1.09); PROTHROMBIN TIME (PATIENT) 14.4 SEC (9.7-13.0)
[2019-11-11 18:05] LABS: ACTIVATED PTT 31.8 SECONDS (25.2-36.5)
[2019-11-11] MEDS ORDERED: SODIUM CHLORIDE 0.9% 500 ML INFUS.BAG IV ONE ×2 (18:26→18:56)
[2019-11-11] MEDS ORDERED: PIPERACILLIN/TAZOB 3.375 GM 3.375 GM in DEXTROSE 5%-WATER - 50 ML IVPB ONE (18:30)
[2019-11-11] MEDS ORDERED: PIPERACILLIN/TAZOB 3.375 GM 3.375 GM/50 ML BAG IVPB ONE (18:37)
[2019-11-11] MEDS: KCL 10 MEQ IVPB 10 MEQ/100 ML INFUS.BAG IVPB SCH ×2 (18:56→20:00)
--- NOTE | 2019-11-11 19:10 | PDOC ---
*Physical Exam - Vital Signs Last Vital Signs Temp Pulse Resp BP Pulse Ox 98.1 F 92 H 16 90/49 L 97 11/11/19 18:49 11/11/19 18:49 11/11/19 14:30 11/11/19 18:49 11/11/19 18:49 ED Treatment Course - LABORATORY CBC & Chemistry Diagram: 11/11/19 15:40 11/11/19 15:40 - ADDITIONAL ORDERS Additional order review: Laboratory Results 11/11/19 11/11/19 11/11/19 17:18 17:18 17:18 PT with INR 14.40 H INR 1.22 H PTT (Actin FS) 31.8 Sodium Potassium Chloride Carbon Dioxide Anion Gap BUN Creatinine Est GFR (CKD-EPI)AfAm Est GFR (CKD-EPI)NonAf Random Glucose Lactic Acid 1.1 Calcium Magnesium 1.9 Total Bilirubin AST ALT Alkaline Phosphatase Creatine Kinase Troponin I Total Protein Albumin 11/11/19 15:40 PT with INR INR PTT (Actin FS) Sodium 126 L Potassium 2.8 L* Chloride 87 L Carbon Dioxide 33 H Anion Gap 6 L BUN 6.2 L Creatinine 0.6 Est GFR (CKD-EPI)AfAm 131.19 Est GFR (CKD-EPI)NonAf 113.19 Random Glucose 100 Lactic Acid Calcium 8.5 Magnesium Total Bilirubin 0.3 AST 11 L ALT 17 Alkaline Phosphatase 85 Creatine Kinase 42 Troponin I < 0.02 Total Protein 5.6 L Albumin 2.6 L 11/11/19 15:40 RBC 4.74 MCV 91.2 MCHC 34.3 RDW 13.6 MPV 6.8 L Neutrophils % 80.5 Lymphocytes % 11.1 D Monocytes % 7.2 Eosinophils % 0.9 Basophils % 0.3 - RADIOLOGY Radiograph Interpretation: Impression: In comparison to an exam performed on 10/14/2019 interval development of a 2.4 x 2.4 x 2 cm pericolonic abscess is seen adjacent to the middle third of the sigmoid colon. As on the prior study there is acute diverticulitis involving the middle third of the sigmoid colon. Interval development of mild concentric wall edema is noted involving the upper and lower thirds of the sigmoid colon as well as the rectum which may be on the basis of superimposed acute colitis. There is possible associated mild concentric wall thickening along the ascending colon. Mild stable bilateral adrenal gland thickening probably due to hyperplasia versus subcentimeter adenomas. Biochemical evaluation is suggested as well as [address]/MRI to document stability. Advanced emphysematous changes are again seen involving the partially imaged chest. 11/11/19 19:35 - Medications Given in the ED: ED Medications Discontinued Medications Generic Name Dose Route Start Last Admin Trade Name Manjinderq PRN Reason Stop Dose Admin Potassium Chloride 10 meq in 100 mls @ 100 mls/hr 11/11/19 16:45 11/11/19 18:56 Potassium Chloride 10 Meq Premix Ivpb - IVPB 11/11/19 18:44 100 mls/hr Q60M EMMA Administration Piperacillin Sod/Tazobactam 50 mls @ 100 mls/hr 11/11/19 18:30 11/11/19 18:45 Sod 3.375 gm/ Dextrose IVPB 11/11/19 18:59 100 mls/hr ONCE ONE Administration Protocol Magnesium Sulfate 2 gm 11/11/19 16:35 11/11/19 18:31 Magnesium Sulfate IVPB 11/11/19 16:36 2 gm ONCE ONE Administration Potassium Chloride 20 meq 11/11/19 16:36 11/11/19 18:36 K-Dur - PO 11/11/19 16:37 20 meq ONCE ONE Administration Potassium Chloride 20 meq 11/11/19 18:18 11/11/19 18:36 K-Dur - PO 11/11/19 18:19 20 meq ONCE ONE Administration Sodium Chloride 1,000 ml 11/11/19 18:26 11/11/19 18:56 Normal Saline - IV 11/11/19 18:27 1,000 ml ONCE ONE Administration Medical Decision Making - Medical Decision Making The pt is a 54M w/ a history of diverticulitis, COPD, ETOH use disorder who presented for evaluation of diarrhea and LLQ abdominal pain. Pt received as sign out Mild diffuse TTP w/o rebound or guarding S/p Zosyn, KCl, Mg, and IVF CT read pending, likely with colitis Leukocytosis noted, pt s/p abx and receiving IVF ECG w/ poor baseline, sinus tachycardia; HR 105; QTc 465; no axis deviation; no GERMAN 11/11/19 19:09 Case discussed w/ Dr. Cramer, agrees with admission and abx [facility] 11/11/19 20:56 Discharge - Discharge Information Problems reviewed: Yes Clinical Impression/Diagnosis: Hyponatremia, Hypochloremia, Hypokalemia, Diverticulitis of large intestine with complication Leukocytosis Qualifiers: Leukocytosis type: unspecified Qualified Code(s): D72.829 - Elevated white blood cell count, unspecified Condition: Guarded - Admission Yes - Follow up/Referral Referrals: Memo Ma MD [Primary Care Provider] - - Patient Discharge Instructions - Post Discharge Activity
[2019-11-11] MEDS ORDERED: LIDOCAINE HCL 2% (20ML MULTI-DOSE VIAL) ONE (19:24)
[2019-11-11] MEDS ORDERED: LACTATED RINGERS SOLUTION 1000 ML INFUS.BAG IV ONE (19:42)
--- NOTE | 2019-11-11 19:49 | PDOC ---
*Physical Exam - Vital Signs Last Vital Signs Temp Pulse Resp BP Pulse Ox 98.1 F 92 H 16 90/49 L 97 11/11/19 18:49 11/11/19 18:49 11/11/19 14:30 11/11/19 18:49 11/11/19 18:49 - Physical Exam 11/11/19 19:43 gen: aaox3, resting comfortably heart: +s1s2 reg lungs: diminished bs b/l bases abd: soft, nondistended, mild diffusely ttp ext: no c/c/e, generally weak all extremities ED Treatment Course - LABORATORY CBC & Chemistry Diagram: 11/11/19 15:40 11/11/19 15:40 - ADDITIONAL ORDERS Additional order review: Laboratory Results 11/11/19 11/11/19 11/11/19 17:18 17:18 17:18 WBC RBC Hgb Hct MCV MCH MCHC RDW Plt Count MPV Absolute Neuts (auto) Neutrophils % Lymphocytes % Monocytes % Eosinophils % Basophils % Nucleated RBC % PT with INR 14.40 H INR 1.22 H PTT (Actin FS) 31.8 Sodium Potassium Chloride Carbon Dioxide Anion Gap BUN Creatinine Est GFR (CKD-EPI)AfAm Est GFR (CKD-EPI)NonAf Random Glucose Lactic Acid 1.1 Calcium Magnesium 1.9 Total Bilirubin AST ALT Alkaline Phosphatase Creatine Kinase Troponin I Total Protein Albumin 11/11/19 11/11/19 15:40 15:40 WBC 16.8 H RBC 4.74 Hgb 14.8 Hct 43.2 D MCV 91.2 MCH 31.2 MCHC 34.3 RDW 13.6 Plt Count 505 H D MPV 6.8 L Absolute Neuts (auto) 13.6 H Neutrophils % 80.5 Lymphocytes % 11.1 D Monocytes % 7.2 Eosinophils % 0.9 Basophils % 0.3 Nucleated RBC % 0 PT with INR INR PTT (Actin FS) Sodium 126 L Potassium 2.8 L* Chloride 87 L Carbon Dioxide 33 H Anion Gap 6 L BUN 6.2 L Creatinine 0.6 Est GFR (CKD-EPI)AfAm 131.19 Est GFR (CKD-EPI)NonAf 113.19 Random Glucose 100 Lactic Acid Calcium 8.5 Magnesium Total Bilirubin 0.3 AST 11 L ALT 17 Alkaline Phosphatase 85 Creatine Kinase 42 Troponin I < 0.02 Total Protein 5.6 L Albumin 2.6 L 11/11/19 15:40 RBC 4.74 MCV 91.2 MCHC 34.3 RDW 13.6 MPV 6.8 L Neutrophils % 80.5 Lymphocytes % 11.1 D Monocytes % 7.2 Eosinophils % 0.9 Basophils % 0.3 - Medications Given in the ED: ED Medications Discontinued Medications Generic Name Dose Route Start Last Admin Trade Name Freq PRN Reason Stop Dose Admin Potassium Chloride 10 meq in 100 mls @ 100 mls/hr 11/11/19 16:45 11/11/19 18:56 Potassium Chloride 10 Meq Premix Ivpb - IVPB 11/11/19 18:44 100 mls/hr Q60M EMMA Administration Piperacillin Sod/Tazobactam 50 mls @ 100 mls/hr 11/11/19 18:30 11/11/19 18:45 Sod 3.375 gm/ Dextrose IVPB 11/11/19 18:59 100 mls/hr ONCE ONE Administration Protocol Magnesium Sulfate 2 gm 11/11/19 16:35 11/11/19 18:31 Magnesium Sulfate IVPB 11/11/19 16:36 2 gm ONCE ONE Administration Potassium Chloride 20 meq 11/11/19 16:36 11/11/19 18:36 K-Dur - PO 11/11/19 16:37 20 meq ONCE ONE Administration Potassium Chloride 20 meq 11/11/19 18:18 11/11/19 18:36 K-Dur - PO 11/11/19 18:19 20 meq ONCE ONE Administration Sodium Chloride 1,000 ml 11/11/19 18:26 11/11/19 18:56 Normal Saline - IV 11/11/19 18:27 1,000 ml ONCE ONE Administration Medical Decision Making - Medical Decision Making 11/11/19 19:47 a/p: 54yo male with generalized weakness -ct shows acute diverticulitis with abscess -iv abx ordered -saline running -will discuss with surgery (dr. wahl out of town - recommends dr. lamar) -call placed to dr lamar -pmd dr. ovalle -will microblog to [facility] 11/11/19 19:56 pt also with electrolyte abnl abx ordered resident discussed the case with dr. lamar who will see the patient in consult 11/11/19 20:20 resident discussed the case with [facility]MPH[facility] covering dr. ovalle who accepts pt to service Discharge - Discharge Information Problems reviewed: Yes Clinical Impression/Diagnosis: Hyponatremia, Hypochloremia, Hypokalemia, Diverticulitis of large intestine with complication, Leukocytosis Condition: Guarded - Admission Yes - Follow up/Referral Referrals: Memo Ovalle MD [Primary Care Provider] - - Patient Discharge Instructions - Post Discharge Activity
--- NOTE | 2019-11-11 20:47 | HP ---
Admitting History and Physical - Primary Care Physician PCP: Memo Ma - Admission Chief Complaint: Abdominal Pain History of Present Illness: This is a 54 y/o man with a PMHx of Alcohol Abuse, Diverticulitis, COPD, Chronic Hyponatremia, Anemia, Schizophrenia, Chronic Low Back Pain. recent admission for Diverticulitis 10/14-10/20, and COPD Exacerbation 09/30-10/08. Who presents to the ED for severe LLQ pain x 1 day. Patient reports having sharp pain to the LLQ with NB diarrhea. Patient reports no follow up with GI since discharge. Patient denies fever, chills, LEONARD, dizziness, CP, palpitations, N/V, constipation, dysuria. History Source: Patient Limitations to Obtaining History: No Limitations - Past Medical History Pulmonary: Yes: COPD Gastrointestinal: Yes: Diverticulitis (10/27) Hepatobiliary: Yes: Other (alcoholic liver disease) Renal/: Yes: Other (hyponatremia) Heme/Onc: Yes: Anemia Infectious Disease: Yes: Other (chronic folliculitis/fungal skin disease?) Psych: Yes: Addictions (alcohol and cigarettes), Schizophrenia Musculoskeletal: Yes: Chronic low back pain Endocrine: Yes: Other (Hyponatremia) Dermatology: Yes: Other (chronic pruritic scaly rash lower abdomen, inguinal area and lower extremities ) - Past Surgical History Past Surgical History: Yes: Hernia Repair (right inguinal hernia repair). 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 History of Recent Travel: No Home Medications - Allergies Allergies/Adverse Reactions: Allergies Allergy/AdvReac Type Severity Reaction Status Date / Time aspirin Allergy Unknown Verified 11/11/19 14:25 phenobarbital Allergy Unknown Verified 11/11/19 14:25 - Home Medications Home Medications: Ambulatory Orders Fluticasone Prop 0.05% Nasal [Flonase -] 2 spray NS BID #1 spray 10/08/19 Folic Acid - 1 mg PO DAILY #30 tablet 10/08/19 Iron Polysaccharides [Niferex-150 -] 150 mg PO DAILY #30 capsule 10/08/19 Levothyroxine [Synthroid -] 25 mcg PO DAILY@0700 #30 tablet 10/08/19 Loratadine [Claritin -] 10 mg PO DAILY #30 tablet 10/08/19 Meclizine HCl [Antivert -] 25 mg PO TID PRN #60 tablet 10/08/19 Multivitamins [Multivit ([facility] Formul[facility])] 1 tab PO DAILY #30 tab 10/08/19 Nicotine Patch [Nicoderm Patch -] 7 mg TD DAILY #30 patch 10/08/19 Pantoprazole Sodium [Protonix -] 40 mg PO DAILY #30 tablet.ec 10/08/19 Thiamine HCl [Vitamin B1 -] 100 mg PO DAILY #30 tablet 10/08/19 predniSONE [Deltasone -] 20 mg PO DAILY #30 tablet 10/08/19 Acetaminophen [Tylenol .Regular Strength -] 650 mg PO Q6H PRN #240 tablet 10/20/19 Levofloxacin [Levaquin] 500 mg PO DAILY #5 tablet 10/20/19 Metronidazole 500 mg PO TID #15 tablet 10/20/19 Potassium Chloride [K-Dur -] 40 meq PO DAILY #30 tablet.er 10/20/19 Family Medical History Family History: Unable to Obtain Review of Systems - Review of Systems Constitutional: reports: Weakness Eyes: reports: No Symptoms HENT: reports: No Symptoms Neck: reports: No Symptoms Cardiovascular: reports: No Symptoms Respiratory: reports: No Symptoms Gastrointestinal: reports: Abdominal Pain, Diarrhea. denies: Melena, Rectal Bleeding, Vomiting, Vomiting Blood Genitourinary: reports: No Symptoms Breasts: reports: No Symptoms Reported Musculoskeletal: reports: Back Pain Integumentary: reports: Rash (chronic) Neurological: reports: No Symptoms Endocrine: reports: No Symptoms Hematology/Lymphatic: reports: No Symptoms Psychiatric: reports: No Symptoms Pain Intensity: 6 Physical Examination Vital Signs: Vital Signs Temperature 98.1 F 11/11/19 18:49 Pulse Rate 92 H 11/11/19 18:49 Respiratory Rate 16 11/11/19 14:30 Blood Pressure 90/49 L 11/11/19 18:49 O2 Sat by Pulse Oximetry (%) 97 11/11/19 18:49 Constitutional: Yes: Mild Distress, Thin, Other (dishoveled) Eyes: Yes: WNL, Conjunctiva Clear, EOM Intact, PERRL HENT: Yes: Atraumatic, Normocephalic, Other (poor dentition, dry mucous membranes) Neck: Yes: WNL, Supple, Trachea Midline Cardiovascular: Yes: Regular Rate and Rhythm, S1, S2 Respiratory: Yes: Diminished (bases) Gastrointestinal: Yes: Hyperactive Bowel Sounds, Tenderness (LLQ), Tenderness, Epigastrium ...Rectal Exam: Yes: WNL Renal/: Yes: WNL Breast(s): Yes: WNL Musculoskeletal: Yes: WNL Extremities: Yes: WNL Edema: No Peripheral Pulses WNL: Yes Integumentary: Yes: Erythema, Rash (diffuse macular papular) Neurological: Yes: WNL, Alert, Oriented, Cran Nerves II-XII Intact, Unresponsive Psychiatric: Yes: WNL, Alert, Oriented Labs: CBC, BMP 11/11/19 15:40 11/11/19 15:40 Imaging - Results Chest X-ray: Report Reviewed, Image Reviewed Cat Scan: Report Reviewed, Image Reviewed Problem List - Problems (1) Diverticulitis of large intestine with complication Assessment/Plan: CTAP- 2.4 x 2.4 x 2cm perocolonic abscess adjacent sigmoid colon Appreciate Surgical consult- per ED resident discussed with Dr Shoaib Franks, Flagyl given in ED, will continue Appreciate ID consult NPO Continue IV fluids WBC 16.8 Lactic Acid-nl Monitor CBC, BMP Code(s): K57.32 - DVTRCLI OF LG INT W/O PERFORATION OR ABSCESS W/O BLEEDING (2) Hypokalemia Assessment/Plan: Likely secondary to Alcohol Abuse K 2.8 Repleted in ED with KCL po, K riders x2 Repeat BMP midnight, then 6am Will replete as indicated Continue cardiac monitoring EKG-reviewed Code(s): E87.6 - HYPOKALEMIA (3) Hyponatremia Assessment/Plan: Likely secondary to Alcohol Abuse hx chronic hyponatremia Na Deficit 462.2 Appreciate Nephrology consult Will start on 0.45%NS Serial BMPs Goal sodium correction of 6-8meq/24hrs Continue cardiac monitoring Will order Urine Osmo, Na Spot, Urine lytes, Serum Osmo if not ordered recently Seizure Precautions Fall Precautions Code(s): E87.1 - HYPO-OSMOLALITY AND HYPONATREMIA (4) Alcohol dependence Assessment/Plan: Counseled on Alcohol cessation UDT-pending Alcohol level-pending Monitor for DTs 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 Code(s): F10.20 - ALCOHOL DEPENDENCE, UNCOMPLICATED (5) COPD (chronic obstructive pulmonary disease) Assessment/Plan: stable no acute flare Chest xray image reviewed Duonebs prn O2 Continue home meds Consider Pulm consult Code(s): J44.9 - CHRONIC OBSTRUCTIVE PULMONARY DISEASE, UNSPECIFIED Qualifiers: COPD type: unspecified COPD Qualified Code(s): J44.9 - Chronic obstructive pulmonary disease, unspecified (6) Anemia Assessment/Plan: stable Hgb 14.8 Will transfuse f Hgb < 7.0 Monitor CBC Code(s): D64.9 - ANEMIA, UNSPECIFIED (7) Hypothyroidism, unspecified Assessment/Plan: Continue Levothyroxine Code(s): E03.9 - HYPOTHYROIDISM, UNSPECIFIED Qualifiers: 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 Admitted to Telemetry for Acute Diverticulitis with Sigmoid Abscess, Hypokalemia, Chronic Hyponatremia, Alcohol Dependence for further evaluation of their emergent condition. Plan: See problem list FEN LR@100ml/hr Repleted K, Na, monitor closely NPO DVT ppx OOB SCDs Heparin SQ Dispo: Requires Inpatient Care Visit type - Emergency Visit Emergency Visit: Yes ED Registration Date: 11/11/19 Care time: The patient presented to the Emergency Department on the above date and was hospitalized for further evaluation of their emergent condition. - New Patient This patient is new to me today: Yes Date on this admission: 11/11/19 - Critical Care Critical Care patient: No
[2019-11-11 21:21] LABS: COCAINE, UR NEGATIVE ng/ml (CUTOFF=300); METHADONE, UR NEGATIVE ng/ml (CUTOFF=300); OPIATES, URI NEGATIVE ng/ml (CUTOFF=300); PHENCYCLIDINE,URINE NEGATIVE ng/ml (CUTOFF=25); URINE AMPHETAMINES NEGATIVE ng/ml (CUTOFF=500); URINE BARBITURATES NEGATIVE ng/ml (CUTOFF=200); URINE BENZODIAZEPINES NEGATIVE ng/ml (CUTOFF=200)
[2019-11-11 22:09] LABS: URINE APPEARANCE CLEAR; URINE BILIRUBIN NEGATIVE (NEGATIVE); URINE COLOR YELLOW; URINE GLUCOSE (UA) NEGATIVE (NEGATIVE); URINE KETONE NEGATIVE (NEGATIVE)
[2019-11-11 22:10] LABS: PH,URINE 6.5 (5.0-8.0); URINE LEUK ESTERASE NEGATIVE (NEGATIVE); URINE NITRITE NEGATIVE (NEGATIVE); URINE PROTEIN NEGATIVE (NEGATIVE); URINE UROBILINOGEN 0.2 mg/dL (0.2-1.0)
[2019-11-12 01:08] LABS: BLOOD UREA NITROGEN 4.2 mg/dL (7-18); CALCIUM 7.4 mg/dL (8.5-10.1); CREATININE 0.6 mg/dL (0.55-1.3); POTASSIUM 3.4 mmol/L (3.5-5.1)
[2019-11-12] MEDS ORDERED: KCL 10 MEQ IVPB 10 MEQ/100 ML INFUS.BAG IVPB SCH (03:30)
[2019-11-12] MEDS ORDERED: LACTATED RINGERS SOLUTION 1,000 ML/1,000 ML INFUS.BAG IV SCH (03:30)
[2019-11-12] MEDS ORDERED: PIPERACILLIN/TAZOB 3.375 GM 3.375 GM/50 ML BAG IVPB ONE (03:32)
[2019-11-12] MEDS: PIPERACILLIN/TAZOB 3.375 GM 3.375 GM in DEXTROSE 5%-WATER - 50 ML IVPB SCH ×3 (04:06→15:52)
[2019-11-12 10:59] LABS: BASO % 0.3 % (0-2.0); HEMATOCRIT 33.9 % (35.4-49); HEMOGLOBIN 11.9 GM/dL (11.7-16.9); LYMPH % 9.4 % (8-40); MCH 31.7 pg (25.7-33.7); MEAN CELL VOLUME 90.7 fl (80-96); MEAN PLT VOLUME 6.8 fl (7.5-11.1); MONO % 8.3 % (3.8-10.2); PLATELET COUNT 383 K/MM3 (134-434); RBC 3.74 M/mm3 (4.00-5.60); RDW 13.5 % (11.9-15.9); WHITE BLOOD COUNT 14.2 K/mm3 (4.0-10.0)
--- NOTE | 2019-11-12 11:33 | EKG ---
Test Reason : Blood Pressure : / mmHG Vent. Rate : 105 BPM Atrial Rate : 105 BPM P-R Int : 120 ms QRS Dur : 086 ms QT Int : 352 ms P-R-T Axes : 077 044 069 degrees QTc Int : 465 ms POOR DATA QUALITY, INTERPRETATION MAY BE ADVERSELY AFFECTED SINUS TACHYCARDIA NONSPECIFIC ST ABNORMALITY ABNORMAL ECG WHEN COMPARED WITH ECG OF 14-OCT-2019 09:59, NO SIGNIFICANT CHANGE WAS FOUND Confirmed by SHAMEKA HENRIQUEZ MD ([id number]) on 11/12/2019 11:33:19 AM Referred By: Confirmed By:SHAMEKA HENRIQUEZ MD
[2019-11-12 11:58] LABS: ALBUMIN 1.9 g/dl (3.4-5.0); BILIRUBIN,TOTAL 0.7 mg/dL (0.2-1); CALCIUM 7.5 mg/dL (8.5-10.1); CREATININE 0.6 mg/dL (0.55-1.3)
[2019-11-12 12:08] LABS: BLOOD UREA NITROGEN 2.6 mg/dL (7-18); POTASSIUM 2.9 mmol/L (3.5-5.1)
--- NOTE | 2019-11-12 13:31 | PN ---
Progress Note, Physician Chief Complaint: IN BED, AWAKE MILD DISTRESS NPO EVENTS REPORTS REVIEWED - Current Medication List Current Medications: Active Medications Piperacillin Sod/Tazobactam (Sod 3.375 gm/ Dextrose) 50 mls @ 100 mls/hr IVPB Q6H-IV EMMA; Protocol Stop: 11/12/19 15:29 Last Admin: 11/12/19 10:47 Dose: 100 mls/hr Documented by: Metronidazole (Flagyl 500mg Premixed Ivpb -) 500 mg in 100 mls @ 100 mls/hr IVPB Q8H-IV EMMA Last Admin: 11/12/19 10:47 Dose: 100 mls/hr Documented by: Lactated Ringer's (Lactated Ringers Solution) 1,000 ml in 1,000 mls @ 100 mls/hr IV ASDIR EMMA Last Admin: 11/12/19 03:50 Dose: 100 mls/hr Documented by: Piperacillin Sod/Tazobactam (Sod 3.375 gm/ Dextrose) 50 mls @ 100 mls/hr IVPB Q6H-IV EMMA; Protocol Potassium Chloride (Potassium Chloride 10 Meq Premix Ivpb -) 10 meq in 100 mls @ 100 mls/hr IVPB Q60M EMMA Stop: 11/12/19 16:14 - Objective Vital Signs: Vital Signs Temperature 97.5 F L 11/12/19 12:04 Pulse Rate 85 11/12/19 12:04 Respiratory Rate 18 11/12/19 11:06 Blood Pressure 92/52 L 11/12/19 12:04 O2 Sat by Pulse Oximetry (%) 98 11/12/19 12:04 Constitutional: Yes: Mild Distress Cardiovascular: Yes: Regular Rate and Rhythm Respiratory: Yes: Diminished Gastrointestinal: Yes: Tenderness Genitourinary: Yes: WNL Musculoskeletal: Yes: Muscle Weakness Integumentary: Yes: Venous Stasis Changes Labs: CBC, BMP 11/12/19 10:33 11/12/19 10:33 INR, PTT INR 1.22 (0.83-1.09) H 11/11/19 17:18 Problem List - Problems (1) Diverticulitis of large intestine with complication Code(s): K57.32 - DVTRCLI OF LG INT W/O PERFORATION OR ABSCESS W/O BLEEDING (2) Hypochloremia Code(s): E87.8 - OTH DISORDERS OF ELECTROLYTE AND FLUID BALANCE, NEC (3) Hypokalemia Code(s): E87.6 - HYPOKALEMIA (4) Hyponatremia Code(s): E87.1 - HYPO-OSMOLALITY AND HYPONATREMIA (5) Leukocytosis Code(s): D72.829 - ELEVATED WHITE BLOOD CELL COUNT, UNSPECIFIED Qualifiers: Leukocytosis type: unspecified Qualified Code(s): D72.829 - Elevated white blood cell count, unspecified (6) Abdominal pain Code(s): R10.9 - UNSPECIFIED ABDOMINAL PAIN Qualifiers: Abdominal location: lower abdomen, unspecified Qualified Code(s): R10.30 - Lower abdominal pain, unspecified (7) Abscess Code(s): L02.91 - CUTANEOUS ABSCESS, UNSPECIFIED (8) Alcohol dependence Code(s): F10.20 - ALCOHOL DEPENDENCE, UNCOMPLICATED (9) Alcohol use disorder Code(s): [id number] - (10) COPD (chronic obstructive pulmonary disease) Code(s): J44.9 - CHRONIC OBSTRUCTIVE PULMONARY DISEASE, UNSPECIFIED Qualifiers: COPD type: unspecified COPD Qualified Code(s): J44.9 - Chronic obstructive pulmonary disease, unspecified (11) Schizophrenia Code(s): F20.9 - SCHIZOPHRENIA, UNSPECIFIED Assessment/Plan NPO, IV ANTIBIOTICS REPLETE KCL, ON NS IVF FOR HYPONATREMIA OOB TO CHAIR WITH ASSIST SURGERY AND ID EVAL DVT PROPHYLAXIS ETOH ABUSE HISTORY, COMMUNITY SERVICE DIRECTOR FOR OUTPATIENT F/U
[2019-11-12] MEDS: KCL 10 MEQ IVPB 10 MEQ/100 ML INFUS.BAG IVPB SCH ×3 (13:45→21:17)
--- NOTE | 2019-11-12 14:13 | CONSULT ---
Consult Consult Specialty:: Surgery Reason for Consultation:: acute diverticulitis with pericolic abscess - History of Present Illness Chief Complaint: abdominal pain History of Present Illness: Salazar Alvarez is a 54 y/o male with reported PMH significant for diverticulitis, COPD, ETOH use disorder, hyponatremia, anemia, chronic low back pain, chronic rash. Currently homeless and lives in his van. He was BIBEMS today because of a welfare check called by some of the people in his living situation. Reports that he was recently discharged from the hospital for diverticulitis. Reports that he continues to have lower abdominal pain and diarrhea non bloody. Denies fever but reports chills. Denies chest pain, reports mild chronic shortness of breath. Denies dysuria/hematuria. Denies back pain. Reports generalized lower extremity weakness. Patient has minimal pain and feels hungry - Past Medical History Pulmonary: Yes: COPD Gastrointestinal: Yes: Diverticulitis (10/27) Hepatobiliary: Yes: Other (alcoholic liver disease) Renal/: Yes: Other (hyponatremia) Infectious Disease: Yes: Other (chronic folliculitis/fungal skin disease?) Psych: Yes: Addictions (alcohol and cigarettes), Schizophrenia Musculoskeletal: Yes: Chronic low back pain Endocrine: Yes: Other (Hyponatremia) Dermatology: Yes: Other (chronic pruritic scaly rash lower abdomen, inguinal area and lower extremities ) Additional Medical History: Hyponatremia and prone to hypoglycemia. Bilateral inguinal hernias - Past Surgical History Past Surgical History: Yes: Hernia Repair (right inguinal hernia repair). 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 History of Recent Travel: No Home Medications - Allergies Allergies/Adverse Reactions: Allergies Allergy/AdvReac Type Severity Reaction Status Date / Time aspirin Allergy Unknown Verified 11/11/19 14:25 phenobarbital Allergy Unknown Verified 11/11/19 14:25 - Home Medications Home Medications: Ambulatory Orders Fluticasone Prop 0.05% Nasal [Flonase -] 2 spray NS BID #1 spray 10/08/19 Folic Acid - 1 mg PO DAILY #30 tablet 10/08/19 Iron Polysaccharides [Niferex-150 -] 150 mg PO DAILY #30 capsule 10/08/19 Levothyroxine [Synthroid -] 25 mcg PO DAILY@0700 #30 tablet 10/08/19 Loratadine [Claritin -] 10 mg PO DAILY #30 tablet 10/08/19 Meclizine HCl [Antivert -] 25 mg PO TID PRN #60 tablet 10/08/19 Multivitamins [Multivit ([facility] Form[facility])] 1 tab PO DAILY #30 tab 10/08/19 Nicotine Patch [Nicoderm Patch -] 7 mg TD DAILY #30 patch 10/08/19 Pantoprazole Sodium [Protonix -] 40 mg PO DAILY #30 tablet.ec 10/08/19 Thiamine HCl [Vitamin B1 -] 100 mg PO DAILY #30 tablet 10/08/19 predniSONE [Deltasone -] 20 mg PO DAILY #30 tablet 10/08/19 Acetaminophen [Tylenol .Regular Strength -] 650 mg PO Q6H PRN #240 tablet 10/20/19 Levofloxacin [Levaquin] 500 mg PO DAILY #5 tablet 10/20/19 Metronidazole 500 mg PO TID #15 tablet 10/20/19 Potassium Chloride [K-Dur -] 40 meq PO DAILY #30 tablet.er 10/20/19 Review of Systems - Review of Systems Constitutional: reports: Weakness HENT: denies: No Symptoms Neck: reports: No Symptoms Respiratory: reports: No Symptoms Gastrointestinal: reports: Abdominal Pain, Diarrhea Musculoskeletal: reports: No Symptoms Integumentary: reports: No Symptoms Psychiatric: reports: No Symptoms Physical Exam Vital Signs: Vital Signs Temperature 97.5 F L 11/12/19 12:04 Pulse Rate 85 11/12/19 12:04 Respiratory Rate 18 11/12/19 11:06 Blood Pressure 92/52 L 11/12/19 12:04 O2 Sat by Pulse Oximetry (%) 98 11/12/19 12:04 Constitutional: Yes: No Distress Eyes: Yes: Conjunctiva Clear HENT: Yes: Normocephalic Neck: Yes: Supple Cardiovascular: Yes: Regular Rate and Rhythm Respiratory: Yes: CTA Bilaterally Gastrointestinal: Yes: Soft, Distention (mild), Tenderness (at LLQ area) ...Rectal Exam: Yes: Deferred Integumentary: Yes: WNL Neurological: Yes: Alert, Oriented Labs: CBC, BMP 11/12/19 10:33 11/12/19 10:33 Imaging - Results Cat Scan: Report Reviewed, Image Reviewed (2.4 cm pericolic abscess) Problem List - Problems (1) Diverticulitis of large intestine with complication Assessment/Plan: [place] 1 perforated sigmoid diverticulitis Continue antibiotics May start clear liquids Code(s): K57.32 - DVTRCLI OF LG INT W/O PERFORATION OR ABSCESS W/O BLEEDING
--- NOTE | 2019-11-12 16:19 | CONSULT ---
Consult Consult Specialty:: Nephrology Reason for Consultation:: hypokalemia - History of Present Illness Chief Complaint: left lower quadrant pain History of Present Illness: Pt is a 54 year old male with pmhx of etoh abuse, diverticulitis, copd, anemia a nd hyponatremia who presents to the ER with left lower quad pain. He was found to have an abscess. He was found to be hyponatremic and hypokalemic and I was called to evaluate him. He denies hematuria or dysuria. He is still drinking alcohol daily. He denies fevers or chills. He denies chest pain or palpitations. - History Source History Provided By: Patient, Medical Record - Past Medical History Pulmonary: Yes: COPD Gastrointestinal: Yes: Diverticulitis (10/27) Hepatobiliary: Yes: Other (alcoholic liver disease) Renal/: Yes: Other (hyponatremia) Infectious Disease: Yes: Other (chronic folliculitis/fungal skin disease?) Psych: Yes: Addictions (alcohol and cigarettes), Schizophrenia Musculoskeletal: Yes: Chronic low back pain Endocrine: Yes: Other (Hyponatremia) Dermatology: Yes: Other (chronic pruritic scaly rash lower abdomen, inguinal area and lower extremities ) Additional Medical History: Hyponatremia and prone to hypoglycemia. Bilateral inguinal hernias - Past Surgical History Past Surgical History: Yes: Hernia Repair (right inguinal hernia repair). 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 History of Recent Travel: No Home Medications - Allergies Allergies/Adverse Reactions: Allergies Allergy/AdvReac Type Severity Reaction Status Date / Time aspirin Allergy Unknown Verified 11/11/19 14:25 phenobarbital Allergy Unknown Verified 11/11/19 14:25 - Home Medications Home Medications: Ambulatory Orders Fluticasone Prop 0.05% Nasal [Flonase -] 2 spray NS BID #1 spray 10/08/19 Folic Acid - 1 mg PO DAILY #30 tablet 10/08/19 Iron Polysaccharides [Niferex-150 -] 150 mg PO DAILY #30 capsule 10/08/19 Levothyroxine [Synthroid -] 25 mcg PO DAILY@0700 #30 tablet 10/08/19 Loratadine [Claritin -] 10 mg PO DAILY #30 tablet 10/08/19 Meclizine HCl [Antivert -] 25 mg PO TID PRN #60 tablet 10/08/19 Multivitamins [Multivit ([facility] Form[facility])] 1 tab PO DAILY #30 tab 10/08/19 Nicotine Patch [Nicoderm Patch -] 7 mg TD DAILY #30 patch 10/08/19 Pantoprazole Sodium [Protonix -] 40 mg PO DAILY #30 tablet.ec 10/08/19 Thiamine HCl [Vitamin B1 -] 100 mg PO DAILY #30 tablet 10/08/19 predniSONE [Deltasone -] 20 mg PO DAILY #30 tablet 10/08/19 Acetaminophen [Tylenol .Regular Strength -] 650 mg PO Q6H PRN #240 tablet 10/20/19 Levofloxacin [Levaquin] 500 mg PO DAILY #5 tablet 10/20/19 Metronidazole 500 mg PO TID #15 tablet 10/20/19 Potassium Chloride [K-Dur -] 40 meq PO DAILY #30 tablet.er 10/20/19 Family Medical History Family History: Denies Review of Systems - Review of Systems Constitutional: reports: Malaise Eyes: reports: No Symptoms HENT: reports: No Symptoms Neck: reports: No Symptoms Respiratory: reports: No Symptoms Gastrointestinal: reports: Abdominal Pain Genitourinary: reports: No Symptoms Musculoskeletal: reports: No Symptoms Integumentary: reports: No Symptoms Neurological: reports: No Symptoms Endocrine: reports: No Symptoms Hematology/Lymphatic: reports: No Symptoms Psychiatric: reports: No Symptoms Physical Exam Vital Signs: Vital Signs Temperature 97.5 F L 11/12/19 12:04 Pulse Rate 85 11/12/19 12:04 Respiratory Rate 18 11/12/19 11:06 Blood Pressure 92/52 L 11/12/19 12:04 O2 Sat by Pulse Oximetry (%) 98 11/12/19 12:04 Constitutional: Yes: Calm Eyes: Yes: Conjunctiva Clear HENT: Yes: Atraumatic Neck: Yes: Supple Cardiovascular: Yes: S1, S2 Respiratory: Yes: CTA Bilaterally Gastrointestinal: Yes: Soft, Tenderness Renal/: Yes: WNL Musculoskeletal: Yes: WNL Edema: No Integumentary: Yes: WNL Neurological: Yes: Oriented Psychiatric: Yes: Oriented Labs: CBC, BMP 11/12/19 10:33 11/12/19 10:33 Laboratory Tests 11/11/19 11/12/19 11/12/19 20:20 00:05 00:17 Potassium Serum Osmolality 269 L Ur Specific [place] 1.046 H Ur Random Sodium 12 L 11/12/19 10:33 Potassium 2.9 L* Serum Osmolality Ur Specific [place] Ur Random Sodium Imaging - Results Cat Scan: Report Reviewed Problem List - Problems (1) Hypokalemia Code(s): E87.6 - HYPOKALEMIA (2) Hyponatremia Code(s): E87.1 - HYPO-OSMOLALITY AND HYPONATREMIA (3) Abdominal pain Code(s): R10.9 - UNSPECIFIED ABDOMINAL PAIN Qualifiers: Abdominal location: lower abdomen, unspecified Qualified Code(s): R10.30 - Lower abdominal pain, unspecified Assessment/Plan Current Medications Generic Name Dose Route Start Last Admin Trade Name Manjinderq PRN Reason Stop Dose Admin Metronidazole 500 mg in 100 mls @ 100 mls/hr 11/12/19 03:30 11/12/19 10:47 Flagyl 500mg Premixed Ivpb - IVPB 100 mls/hr Q8H-IV EMMA Administration Lactated Ringer's 1,000 ml in 1,000 mls @ 100 mls/hr 11/12/19 03:30 11/12/19 03:50 Lactated Ringers Solution IV 100 mls/hr ASDIR EMMA Administration Piperacillin Sod/Tazobactam 50 mls @ 100 mls/hr 11/12/19 21:00 Sod 3.375 gm/ Dextrose IVPB Q6H-IV EMMA Protocol Impression 1. hyponatremia 2. pericolonic abscess 3. etoh abuse 4. anemia 5. copd 6. microscopic hematuria 7. active smoker 8. hypokalemia Plan - repalce potassium - will give an additional dose po and add potassium to fluids - monitor lytes - surgery eval - recommend that he stops drinking alcohol
[2019-11-12] MEDS ORDERED: POTASSIUM CHLORIDE ORAL LIQUID 20 MEQ/15 ML PO ONE (16:22)
[2019-11-12] MEDS ORDERED: SODIUM CHLORIDE 0.45%/POT 20 MEQ/1,000 ML INFUS.BAG IV SCH (16:30)
[2019-11-12] MEDS ORDERED: PIPERACILLIN/TAZOBACTAM 3.375 GM VIAL IVPB ONE ×2 (17:27→17:30)
[2019-11-12] MEDS ORDERED: DEXTROSE 5%-WATER - 50 ML IVPB ONE ×2 (17:27→17:30)
--- NOTE | 2019-11-12 18:26 | PN ---
Progress Note (short form) - Note Progress Note: ID CONSULT DICTATED RECURRENT DIVERTICULITIS DIVERTICULAR ABSCESS R/O SEPSIS SECONDARY TO GI SOURCE LEUKOCYTOSIS AWAIT C/S EMPIRIC ZOSYN/ FLAGYL SURGICAL EVALUATION
--- NOTE | 2019-11-12 20:18 | CONS ---
DATE OF CONSULTATION: 11/12/2019 INFECTIOUS DISEASE CONSULTATION HISTORY OF PRESENT ILLNESS: The patient is a 54-year-old homeless male who was recently hospitalized at [facility] with acute diverticulitis, now readmitted with abdominal pain. The patient was hospitalized at [facility] in September and October of this year. He was most recently discharged on October 20, 2019, after a treatment for acute diverticulitis. He now returns with left lower quadrant abdominal pain associated with loose bowel movements. He was evaluated where CAT scan of the abdomen and pelvis showed sigmoid diverticulitis with an interval development of a diverticular abscess. He was empirically treated with Zosyn and Flagyl. At the present time, he complains of left lower quadrant abdominal pain, continued loose bowel movements. He has nausea but no vomiting. Denies any associated fever or chills. PAST MEDICAL HISTORY: Positive for diverticulosis, recent diverticulitis, COPD, chronic alcoholism. ALLERGIES: ASPIRIN and PHENOBARBITAL. SOCIAL HISTORY: He is homeless. Positive history of tobacco and heavy alcohol use. SYSTEMS REVIEW: Neurologic: No loss of consciousness, seizure activity, or focal weakness. Cardiac: Negative for chest pain or palpitations. Respiratory: Negative for cough or sputum production. Gastrointestinal: As per HPI. Genitourinary: Negative for urinary tract infection. LABORATORY DATA: White count on admission 16.8, presently 14.2, hematocrit 33.9, platelets 383. BUN 2.6, creatinine 0.6. Urinalysis negative. Blood cultures pending. PHYSICAL EXAMINATION: General: On exam, he is awake, he is a thin male in no acute distress. Vital signs: Temperature 98.1, blood pressure 141/72, pulse 74 regular, respirations 20 per minute. HEENT: Sclerae anicteric. Cardiovascular: Heart sounds S1, S2. Lungs: Clear. Abdomen: Soft, there is left lower quadrant tenderness to palpation, no mass, rebound, or rigidity. Extremities: Negative for edema. IMPRESSION: 1. Recurrent diverticulitis. 2. Diverticular abscess. 3. Rule out sepsis secondary to gastrointestinal source. 4. Leukocytosis. Await cultures. GI and Surgical evaluation. Empiric antibiotic coverage with Zosyn and Flagyl. IV fluids, analgesics. Thank you for the kind referral. SHAMEKA BRASHER M.D. [facility]/[id number]
[2019-11-12] MEDS ORDERED: PIPERACILLIN/TAZOB 3.375 GM 3.375 GM in DEXTROSE 5%-WATER - 50 ML IVPB SCH (21:00)
[2019-11-13] MEDS ORDERED: PIPERACILLIN/TAZOBACTAM 3.375 GM VIAL IVPB ONE ×3 (00:19→17:27)
[2019-11-13] MEDS: PIPERACILLIN/TAZOB 3.375 GM 3.375 GM in DEXTROSE 5%-WATER - 50 ML IVPB SCH ×3 (01:33→17:33)
[2019-11-13] MEDS ORDERED: DEXTROSE 5%-WATER - 50 ML IVPB ONE ×2 (07:47→17:27)
[2019-11-13 08:12] LABS: HEMATOCRIT 34.8 % (35.4-49); HEMOGLOBIN 12.2 GM/dL (11.7-16.9); MCH 31.7 pg (25.7-33.7); MCHC 35.1 g/dl (32.0-35.9); MEAN CELL VOLUME 90.4 fl (80-96); MEAN PLT VOLUME 6.6 fl (7.5-11.1); PLATELET COUNT 378 K/MM3 (134-434); RBC 3.85 M/mm3 (4.00-5.60); RDW 13.4 % (11.9-15.9); WHITE BLOOD COUNT 10.8 K/mm3 (4.0-10.0)
[2019-11-13 08:41] LABS: ALBUMIN 1.9 g/dl (3.4-5.0); ALK PHOS 60 U/L (45-117); ANION GAP 6 MMOL/L (8-16); BILIRUBIN,TOTAL 0.8 mg/dL (0.2-1); CALCIUM 7.6 mg/dL (8.5-10.1); CHLORIDE 95 mmol/L (98-107); CO2 31 mmol/L (21-32); CREATININE 0.6 mg/dL (0.55-1.3); GLUCOSE,RANDOM 87 mg/dL (74-106); MAGNESIUM 1.7 mg/dL (1.8-2.4); SGOT/AST 12 U/L (15-37); SGPT/ALT 14 U/L (13-61); SODIUM 133 mmol/L (136-145); TOT PROT 4.2 g/dl (6.4-8.2)
[2019-11-13 08:48] LABS: BLOOD UREA NITROGEN < 1.0 mg/dL (7-18); POTASSIUM 2.9 mmol/L (3.5-5.1)
[2019-11-13] MEDS ORDERED: POTASSIUM CHLORIDE TABS 20 MEQ TABLET.ER (FP) PO ONE ×2 (09:12→16:00)
[2019-11-13] MEDS ORDERED: MAGNESIUM SULF 50% (8.12 MEQ/2 ML-1 GM VIAL) IVPB ONE (09:13)
[2019-11-13] MEDS: KCL 10 MEQ IVPB 10 MEQ/100 ML INFUS.BAG IVPB SCH ×3 (09:31→11:43)
--- NOTE | 2019-11-13 09:37 | PN ---
Progress Note, Physician - Current Medication List Current Medications: Active Medications Metronidazole (Flagyl 500mg Premixed Ivpb -) 500 mg in 100 mls @ 100 mls/hr IVPB Q8H-IV EMMA Last Admin: 11/13/19 09:31 Dose: 100 mls/hr Documented by: Piperacillin Sod/Tazobactam (Sod 3.375 gm/ Dextrose) 50 mls @ 100 mls/hr IVPB Q8H-IV EMMA; Protocol Last Admin: 11/13/19 09:31 Dose: 100 mls/hr Documented by: Potassium Chloride (Potassium Chloride 10 Meq Premix Ivpb -) 10 meq in 100 mls @ 100 mls/hr IVPB Q60M EMMA Stop: 11/13/19 12:14 Last Admin: 11/13/19 09:31 Dose: Not Given Documented by: Potassium Chloride 40 meq/ (Sodium Chloride) 1,020 mls @ 75 mls/hr IVPB Q13H EMMA - Objective Vital Signs: Vital Signs Temperature 98.2 F 11/13/19 06:00 Pulse Rate 87 11/13/19 06:00 Respiratory Rate 18 11/13/19 06:00 Blood Pressure 104/58 L 11/13/19 06:00 O2 Sat by Pulse Oximetry (%) 92 L 11/12/19 22:00 Cardiovascular: Yes: S1, S2 Respiratory: Yes: Regular, CTA Bilaterally Gastrointestinal: Yes: Normal Bowel Sounds, Soft, Tenderness (MINIMAL) Labs: CBC, BMP 11/13/19 07:38 11/13/19 07:38 INR, PTT INR 1.22 (0.83-1.09) H 11/11/19 17:18 Problem List - Problems (1) Diverticulitis of large intestine with complication Assessment/Plan: IV ABX DIET PER GI ID FOLLOWING Code(s): K57.32 - DVTRCLI OF LG INT W/O PERFORATION OR ABSCESS W/O BLEEDING (2) Hypokalemia Assessment/Plan: POTASSIUM REPLACE FOLLOW LABS RENAL FOLLOWING Code(s): E87.6 - HYPOKALEMIA (3) Alcohol dependence Assessment/Plan: NO S/S WITHDRAWAL Code(s): F10.20 - ALCOHOL DEPENDENCE, UNCOMPLICATED (4) COPD (chronic obstructive pulmonary disease) Assessment/Plan: STABLE Code(s): J44.9 - CHRONIC OBSTRUCTIVE PULMONARY DISEASE, UNSPECIFIED Qualifiers: COPD type: unspecified COPD Qualified Code(s): J44.9 - Chronic obstructive pulmonary disease, unspecified
[2019-11-13] MEDS: traMADol HCL 50 MG TABLET PO PRN ×2 (10:45→20:50)
[2019-11-13] MEDS: HEPARIN NA (PORCINE) 5,000 UNITS/ML 1ML VIAL SQ SCH ×2 (10:47→21:04)
--- NOTE | 2019-11-13 11:01 | PN ---
Progress Note, Physician History of Present Illness: Pt seen and examined at bedside. He is refusing IV potassium and refusing fluids. - Current Medication List Current Medications: Active Medications Heparin Sodium (Porcine) (Heparin -) 5,000 unit SQ BID EMMA Last Admin: 11/13/19 10:47 Dose: 5,000 unit Documented by: Metronidazole (Flagyl 500mg Premixed Ivpb -) 500 mg in 100 mls @ 100 mls/hr IV PB Q8H-IV EMMA Last Admin: 11/13/19 09:31 Dose: 100 mls/hr Documented by: Piperacillin Sod/Tazobactam (Sod 3.375 gm/ Dextrose) 50 mls @ 100 mls/hr IVPB Q8H-IV EMMA; Protocol Last Admin: 11/13/19 09:31 Dose: 100 mls/hr Documented by: Potassium Chloride (Potassium Chloride 10 Meq Premix Ivpb -) 10 meq in 100 mls @ 100 mls/hr IVPB Q60M EMMA Stop: 11/13/19 12:14 Last Admin: 11/13/19 10:44 Dose: Not Given Documented by: Potassium Chloride 40 meq/ (Sodium Chloride) 1,020 mls @ 75 mls/hr IVPB Q13H EMMA Tramadol HCl (Ultram -) 50 mg PO Q8H PRN PRN Reason: PAIN LEVEL 6-10 Last Admin: 11/13/19 10:45 Dose: 50 mg Documented by: - Objective Vital Signs: Vital Signs Temperature 98 F 11/13/19 10:00 Pulse Rate 86 11/13/19 10:00 Respiratory Rate 20 11/13/19 10:00 Blood Pressure 85/63 L 11/13/19 10:00 O2 Sat by Pulse Oximetry (%) 99 11/13/19 09:00 Constitutional: Yes: No Distress, Calm Eyes: Yes: Conjunctiva Clear HENT: Yes: Atraumatic Cardiovascular: Yes: S1, S2 Respiratory: Yes: CTA Bilaterally Gastrointestinal: Yes: Normal Bowel Sounds, Soft Genitourinary: Yes: WNL Breast(s): Yes: WNL Edema: No Integumentary: Yes: WNL Neurological: Yes: Oriented Psychiatric: Yes: Oriented Labs: CBC, BMP 11/13/19 07:38 11/13/19 07:38 INR, PTT INR 1.22 (0.83-1.09) H 11/11/19 17:18 Problem List - Problems (1) Hypokalemia Code(s): E87.6 - HYPOKALEMIA (2) Hyponatremia Code(s): E87.1 - HYPO-OSMOLALITY AND HYPONATREMIA (3) Abdominal pain Code(s): R10.9 - UNSPECIFIED ABDOMINAL PAIN Qualifiers: Abdominal location: lower abdomen, unspecified Qualified Code(s): R10.30 - Lower abdominal pain, unspecified Assessment/Plan Current Medications Generic Name Dose Route Start Last Admin Trade Name Freq PRN Reason Stop Dose Admin Heparin Sodium (Porcine) 5,000 unit 11/13/19 10:00 11/13/19 10:47 Heparin - SQ 5,000 unit BID EMMA Administration Metronidazole 500 mg in 100 mls @ 100 mls/hr 11/12/19 03:30 11/13/19 09:31 Flagyl 500mg Premixed Ivpb - IVPB 100 mls/hr Q8H-IV EMMA Administration Piperacillin Sod/Tazobactam 50 mls @ 100 mls/hr 11/13/19 02:00 11/13/19 09:31 Sod 3.375 gm/ Dextrose IVPB 100 mls/hr Q8H-IV EMMA Administration Protocol Potassium Chloride 10 meq in 100 mls @ 100 mls/hr 11/13/19 09:15 11/13/19 10:44 Potassium Chloride 10 Meq Premix Ivpb - IVPB 11/13/19 12:14 Not Given Q60M EMMA Potassium Chloride 40 meq/ 1,020 mls @ 75 mls/hr 11/13/19 12:15 Sodium Chloride IVPB Q13H EMMA Tramadol HCl 50 mg 11/13/19 09:34 11/13/19 10:45 Ultram - PO 50 mg Q8H PRN Administration PAIN LEVEL 6-10 Impression 1. hyponatremia 2. pericolonic abscess 3. etoh abuse 4. anemia 5. copd 6. microscopic hematuria 7. active smoker 8. hypokalemia Plan - pt refusing IV meds - will order another po dose for later today - replace mag - encourage po intake - cont abx
[2019-11-13] MEDS: POTASSIUM CHLORIDE 40 MEQ in SODIUM CHLORIDE 1,000 ML IVPB SCH (12:14)
--- NOTE | 2019-11-13 15:47 | PN ---
Progress Note, Physician Chief Complaint: acute diverticulitis History of Present Illness: Continues to have diarrhea but abdominal pain is less. - Current Medication List Current Medications: Active Medications Heparin Sodium (Porcine) (Heparin -) 5,000 unit SQ BID EMMA Last Admin: 11/13/19 10:47 Dose: 5,000 unit Documented by: Metronidazole (Flagyl 500mg Premixed Ivpb -) 500 mg in 100 mls @ 100 mls/hr IVPB Q8H-IV EMMA Last Admin: 11/13/19 09:31 Dose: 100 mls/hr Documented by: Piperacillin Sod/Tazobactam (Sod 3.375 gm/ Dextrose) 50 mls @ 100 mls/hr IVPB Q8H-IV EMMA; Protocol Last Admin: 11/13/19 09:31 Dose: 100 mls/hr Documented by: Potassium Chloride 40 meq/ (Sodium Chloride) 1,020 mls @ 75 mls/hr IVPB Q13H EMMA Last Admin: 11/13/19 12:14 Dose: Not Given Documented by: Potassium Chloride (K-Dur -) 40 meq PO ONCE ONE Stop: 11/13/19 16:01 Tramadol HCl (Ultram -) 50 mg PO Q8H PRN PRN Reason: PAIN LEVEL 6-10 Last Admin: 11/13/19 10:45 Dose: 50 mg Documented by: - Objective Vital Signs: Vital Signs Temperature 98 F 11/13/19 10:00 Pulse Rate 82 11/13/19 14:00 Respiratory Rate 20 11/13/19 14:00 Blood Pressure 95/58 L 11/13/19 14:00 O2 Sat by Pulse Oximetry (%) 99 11/13/19 09:00 Constitutional: Yes: No Distress Eyes: Yes: Conjunctiva Clear, PERRL Neck: Yes: Supple Cardiovascular: Yes: Regular Rate and Rhythm Respiratory: Yes: CTA Bilaterally Gastrointestinal: Yes: Soft, Tenderness (minimal LLQ tenderness) ...Rectal Exam: Yes: Deferred Labs: CBC, BMP 11/13/19 07:38 11/13/19 07:38 INR, PTT INR 1.22 (0.83-1.09) H 11/11/19 17:18 Problem List - Problems (1) Diverticulitis of large intestine with complication Assessment/Plan: resolving diverticulitis f/u CT A/P in am to reevaluate pericolic abscess may advance to full liquid diet Code(s): K57.32 - DVTRCLI OF LG INT W/O PERFORATION OR ABSCESS W/O BLEEDING
[2019-11-14] MEDS ORDERED: DEXTROSE 5%-WATER - 50 ML IVPB ONE ×3 (01:42→17:12)
[2019-11-14] MEDS ORDERED: PIPERACILLIN/TAZOBACTAM 3.375 GM VIAL IVPB ONE ×3 (01:42→17:11)
[2019-11-14] MEDS: POTASSIUM CHLORIDE 40 MEQ in SODIUM CHLORIDE 1,000 ML IVPB SCH ×2 (03:17→15:56)
[2019-11-14] MEDS: PIPERACILLIN/TAZOB 3.375 GM 3.375 GM in DEXTROSE 5%-WATER - 50 ML IVPB SCH ×3 (03:19→17:17)
[2019-11-14 08:04] LABS: BASO % 0.6 % (0-2.0); EOS % 1.9 % (0-4.5); HEMOGLOBIN 12.7 GM/dL (11.7-16.9); LYMPH % 16.2 % (8-40); MCH 31.8 pg (25.7-33.7); MCHC 35.2 g/dl (32.0-35.9); MEAN CELL VOLUME 90.4 fl (80-96); MEAN PLT VOLUME 7.3 fl (7.5-11.1); MONO % 10.3 % (3.8-10.2); PLATELET COUNT 380 K/MM3 (134-434); RBC 3.99 M/mm3 (4.00-5.60); RDW 13.3 % (11.9-15.9); WHITE BLOOD COUNT 13.7 K/mm3 (4.0-10.0)
[2019-11-14 08:30] LABS: ALK PHOS 62 U/L (45-117); ANION GAP 5 MMOL/L (8-16); BILIRUBIN,TOTAL 0.3 mg/dL (0.2-1); CALCIUM 7.4 mg/dL (8.5-10.1); CHLORIDE 90 mmol/L (98-107); CO2 37 mmol/L (21-32); CREATININE 0.6 mg/dL (0.55-1.3); GLUCOSE,RANDOM 93 mg/dL (74-106); SGOT/AST 12 U/L (15-37); SGPT/ALT 12 U/L (13-61); SODIUM 132 mmol/L (136-145); TOT PROT 4.4 g/dl (6.4-8.2)
[2019-11-14 08:38] LABS: BLOOD UREA NITROGEN < 1.0 mg/dL (7-18); POTASSIUM 2.7 mmol/L (3.5-5.1)
[2019-11-14] MEDS: traMADol HCL 50 MG TABLET PO PRN ×2 (08:45→21:31)
[2019-11-14] MEDS ORDERED: POTASSIUM CHLORIDE TABS 20 MEQ TABLET.ER (FP) PO ONE (10:00)
[2019-11-14] MEDS: HEPARIN NA (PORCINE) 5,000 UNITS/ML 1ML VIAL SQ SCH ×2 (10:47→21:29)
[2019-11-14] MEDS: KCL 10 MEQ IVPB 10 MEQ/100 ML INFUS.BAG IVPB SCH ×3 (10:55→12:12)
--- NOTE | 2019-11-14 11:15 | PN ---
Progress Note, Physician - Current Medication List Current Medications: Active Medications Heparin Sodium (Porcine) (Heparin -) 5,000 unit SQ BID EMMA Last Admin: 11/14/19 10:47 Dose: 5,000 unit Documented by: Metronidazole (Flagyl 500mg Premixed Ivpb -) 500 mg in 100 mls @ 100 mls/hr IVPB Q8H-IV EMMA Last Admin: 11/14/19 10:46 Dose: 100 mls/hr Documented by: Piperacillin Sod/Tazobactam (Sod 3.375 gm/ Dextrose) 50 mls @ 100 mls/hr IVPB Q8H-IV EMMA; Protocol Last Admin: 11/14/19 10:46 Dose: 100 mls/hr Documented by: Potassium Chloride 40 meq/ (Sodium Chloride) 1,020 mls @ 75 mls/hr IVPB Q13H [facility] Last Admin: 11/14/19 03:17 Dose: Not Given Documented by: Potassium Chloride (Potassium Chloride 10 Meq Premix Ivpb -) 10 meq in 100 mls @ 100 mls/hr IVPB Q60M [facility] Stop: 11/14/19 12:59 Last Admin: 11/14/19 10:55 Dose: Not Given Documented by: Tramadol HCl (Ultram -) 50 mg PO Q8H PRN PRN Reason: PAIN LEVEL 6-10 Last Admin: 11/14/19 08:45 Dose: 50 mg Documented by: - Objective Vital Signs: Vital Signs Temperature 98.1 F 11/14/19 08:48 Pulse Rate 72 11/14/19 08:48 Respiratory Rate 18 11/14/19 08:48 Blood Pressure 107/65 11/14/19 08:48 O2 Sat by Pulse Oximetry (%) 96 11/13/19 22:00 Cardiovascular: Yes: S1, S2 Respiratory: Yes: Regular, CTA Bilaterally Gastrointestinal: Yes: Normal Bowel Sounds, Soft Labs: CBC, BMP 11/14/19 05:35 11/14/19 05:35 INR, PTT INR 1.22 (0.83-1.09) H 11/11/19 17:18 Problem List - Problems (1) Diverticulitis of large intestine with complication Assessment/Plan: IV ABX DIET PER GI ID FOLLOWING await ct Code(s): K57.32 - DVTRCLI OF LG INT W/O PERFORATION OR ABSCESS W/O BLEEDING (2) Hypokalemia Assessment/Plan: POTASSIUM REPLACE--Refusing IV FOLLOW LABS RENAL FOLLOWING Code(s): E87.6 - HYPOKALEMIA (3) Alcohol dependence Assessment/Plan: NO S/S WITHDRAWAL Code(s): F10.20 - ALCOHOL DEPENDENCE, UNCOMPLICATED (4) COPD (chronic obstructive pulmonary disease) Assessment/Plan: STABLE Code(s): J44.9 - CHRONIC OBSTRUCTIVE PULMONARY DISEASE, UNSPECIFIED Qualifiers: COPD type: unspecified COPD Qualified Code(s): J44.9 - Chronic obstructive pulmonary disease, unspecified
--- NOTE | 2019-11-14 16:07 | PN ---
Progress Note, Physician History of Present Illness: Pt seen and examined at bedside. He is refusing potassium IV or fluids. - Current Medication List Current Medications: Active Medications Heparin Sodium (Porcine) (Heparin -) 5,000 unit SQ BID EMMA Last Admin: 11/14/19 10:47 Dose: 5,000 unit Documented by: Metronidazole (Flagyl 500mg Premixed Ivpb -) 500 mg in 100 mls @ 100 mls/hr IVPB Q8H-IV EMMA Last Admin: 11/14/19 10:46 Dose: 100 mls/hr Documented by: Piperacillin Sod/Tazobactam (Sod 3.375 gm/ Dextrose) 50 mls @ 100 mls/hr IVPB Q8H-IV EMMA; Protocol Last Admin: 11/14/19 10:46 Dose: 100 mls/hr Documented by: Potassium Chloride 40 meq/ (Sodium Chloride) 1,020 mls @ 75 mls/hr IVPB Q13H EMMA Last Admin: 11/14/19 15:56 Dose: Not Given Documented by: Tramadol HCl (Ultram -) 50 mg PO Q8H PRN PRN Reason: PAIN LEVEL 6-10 Last Admin: 11/14/19 08:45 Dose: 50 mg Documented by: - Objective Vital Signs: Vital Signs Temperature 97.9 F 11/14/19 14:11 Pulse Rate 64 11/14/19 14:11 Respiratory Rate 20 11/14/19 14:11 Blood Pressure 93/62 11/14/19 14:11 O2 Sat by Pulse Oximetry (%) 96 11/14/19 09:00 Constitutional: Yes: Calm Eyes: Yes: Conjunctiva Clear HENT: Yes: Atraumatic Cardiovascular: Yes: S1, S2 Respiratory: Yes: CTA Bilaterally Gastrointestinal: Yes: Normal Bowel Sounds, Soft Genitourinary: Yes: WNL Musculoskeletal: Yes: WNL Edema: No Neurological: Yes: Oriented Psychiatric: Yes: Oriented Labs: CBC, BMP 11/14/19 05:35 11/14/19 05:35 INR, PTT INR 1.22 (0.83-1.09) H 11/11/19 17:18 Problem List - Problems (1) Hypokalemia Code(s): E87.6 - HYPOKALEMIA (2) Hyponatremia Code(s): E87.1 - HYPO-OSMOLALITY AND HYPONATREMIA (3) Abdominal pain Code(s): R10.9 - UNSPECIFIED ABDOMINAL PAIN Qualifiers: Abdominal location: lower abdomen, unspecified Qualified Code(s): R10.30 - Lower abdominal pain, unspecified Assessment/Plan Current Medications Generic Name Dose Route Start Last Admin Trade Name Freq PRN Reason Stop Dose Admin Heparin Sodium (Porcine) 5,000 unit 11/13/19 10:00 11/14/19 10:47 Heparin - SQ 5,000 unit BID EMMA Administration Metronidazole 500 mg in 100 mls @ 100 mls/hr 11/12/19 03:30 11/14/19 10:46 Flagyl 500mg Premixed Ivpb - IVPB 100 mls/hr Q8H-IV EMMA Administration Piperacillin Sod/Tazobactam 50 mls @ 100 mls/hr 11/13/19 02:00 11/14/19 10:46 Sod 3.375 gm/ Dextrose IVPB 100 mls/hr Q8H-IV EMMA Administration Protocol Potassium Chloride 40 meq/ 1,020 mls @ 75 mls/hr 11/13/19 12:15 11/14/19 15:56 Sodium Chloride IVPB Not Given Q13H EMMA Tramadol HCl 50 mg 11/13/19 09:34 11/14/19 08:45 Ultram - PO 50 mg Q8H PRN Administration PAIN LEVEL 6-10 Impression 1. hyponatremia 2. pericolonic abscess 3. etoh abuse 4. anemia 5. copd 6. microscopic hematuria 7. active smoker 8. hypokalemia Plan - will add more PO potassium - monitor lytes - refusing fluids - cont abx
[2019-11-14] MEDS: POTASSIUM CHLORIDE ORAL LIQUID 20 MEQ/15 ML PO SCH ×2 (16:43→21:30)
[2019-11-14] MEDS: D5-NS + 20 MEQ KCL - 20 MEQ/1,000 ML INFUS.BAG IV SCH (22:06)
[2019-11-15] MEDS ORDERED: PIPERACILLIN/TAZOBACTAM 3.375 GM VIAL IVPB ONE ×3 (02:35→17:15)
[2019-11-15] MEDS ORDERED: DEXTROSE 5%-WATER - 50 ML IVPB ONE ×3 (02:36→17:16)
[2019-11-15] MEDS: PIPERACILLIN/TAZOB 3.375 GM 3.375 GM in DEXTROSE 5%-WATER - 50 ML IVPB SCH ×3 (02:43→17:19)
[2019-11-15 07:02] LABS: BASO % 0.6 % (0-2.0); EOS % 2.3 % (0-4.5); HEMATOCRIT 34.1 % (35.4-49); HEMOGLOBIN 11.7 GM/dL (11.7-16.9); LYMPH % 19.5 % (8-40); MCH 31.2 pg (25.7-33.7); MCHC 34.4 g/dl (32.0-35.9); MEAN CELL VOLUME 90.7 fl (80-96); MEAN PLT VOLUME 6.7 fl (7.5-11.1); MONO % 11.5 % (3.8-10.2); NEUT % 66.1 % (42.8-82.8); PLATELET COUNT 337 K/MM3 (134-434); RBC 3.76 M/mm3 (4.00-5.60); RDW 13.3 % (11.9-15.9); WHITE BLOOD COUNT 10.4 K/mm3 (4.0-10.0)
[2019-11-15 07:27] LABS: ALBUMIN 1.8 g/dl (3.4-5.0); ALK PHOS 53 U/L (45-117); ANION GAP 3 MMOL/L (8-16); BILIRUBIN,TOTAL 0.2 mg/dL (0.2-1); CALCIUM 7.5 mg/dL (8.5-10.1); CHLORIDE 99 mmol/L (98-107); CO2 31 mmol/L (21-32); CREATININE 0.5 mg/dL (0.55-1.3); GLUCOSE,RANDOM 153 mg/dL (74-106); MAGNESIUM 1.8 mg/dL (1.8-2.4); POTASSIUM 3.7 mmol/L (3.5-5.1); SGOT/AST 8 U/L (15-37); SGPT/ALT 10 U/L (13-61); SODIUM 133 mmol/L (136-145); TOT PROT 3.9 g/dl (6.4-8.2)
[2019-11-15 07:41] LABS: BLOOD UREA NITROGEN < 1.0 mg/dL (7-18)
[2019-11-15] MEDS: traMADol HCL 50 MG TABLET PO PRN (08:31)
--- NOTE | 2019-11-15 09:02 | PN ---
Progress Note, Physician Chief Complaint: acute perforated diverticulitis with Hinchey 1 pericolic abscess History of Present Illness: CT A/P yesterday showed worsening of inflammatory process and increases size of abscess. Also noted pulmonary infiltrates and increase in WBC count. Patient continues to have mild pain and mild diarrhea - Current Medication List Current Medications: Active Medications Heparin Sodium (Porcine) (Heparin -) 5,000 unit SQ BID EMMA Last Admin: 11/14/19 21:29 Dose: 5,000 unit Documented by: Metronidazole (Flagyl 500mg Premixed Ivpb -) 500 mg in 100 mls @ 100 mls/hr IVPB Q8H-IV EMMA Last Admin: 11/15/19 02:43 Dose: 100 mls/hr Documented by: Piperacillin Sod/Tazobactam (Sod 3.375 gm/ Dextrose) 50 mls @ 100 mls/hr IVPB Q8H-IV EMMA; Protocol Last Admin: 11/15/19 02:43 Dose: 100 mls/hr Documented by: Dextrose/Sodium Chloride (Dextrose 5%-Normal Saline+20 Meq Kcl -) 20 meq in 1,000 mls @ 83 mls/hr IV ASDIR EMMA Last Admin: 11/14/19 22:06 Dose: 83 mls/hr Documented by: Tramadol HCl (Ultram -) 50 mg PO Q8H PRN PRN Reason: PAIN LEVEL 6-10 Last Admin: 11/15/19 08:31 Dose: 50 mg Documented by: - Objective Vital Signs: Vital Signs Temperature 98.3 F 11/15/19 08:26 Pulse Rate 65 11/15/19 08:26 Respiratory Rate 20 11/15/19 08:27 Blood Pressure 100/60 11/15/19 08:26 O2 Sat by Pulse Oximetry (%) 97 11/15/19 08:27 Constitutional: Yes: No Distress HENT: Yes: Normocephalic Neck: Yes: Supple Cardiovascular: Yes: Regular Rate and Rhythm Respiratory: Yes: CTA Bilaterally Gastrointestinal: Yes: Soft, Distention (mild), Tenderness (mild at LLQ) Genitourinary: Yes: WNL Extremities: Yes: WNL Neurological: Yes: Alert, Oriented Labs: CBC, BMP 11/15/19 06:45 11/15/19 06:45 INR, PTT INR 1.22 (0.83-1.09) H 11/11/19 17:18 - ....Imaging Cat Scan: Report Reviewed, Image Reviewed Problem List - Problems (1) Diverticulitis of large intestine with complication Assessment/Plan: Worsening diverticulitis and abscess Will consult IR for possible aspiration/drainage If not feasible, may require surgical intervention Code(s): K57.32 - DVTRCLI OF LG INT W/O PERFORATION OR ABSCESS W/O BLEEDING
[2019-11-15] MEDS: HEPARIN NA (PORCINE) 5,000 UNITS/ML 1ML VIAL SQ SCH ×2 (09:27→21:31)
[2019-11-15] MEDS ORDERED: SODIUM CHLORIDE 1 GM TABLET PO ONE (15:44)
[2019-11-15] MEDS ORDERED: POTASSIUM CHLORIDE ORAL LIQUID 20 MEQ/15 ML PO ONE (15:44)
--- NOTE | 2019-11-15 15:44 | PN ---
Progress Note, Physician History of Present Illness: Pt seen and examined at bedside. He is awake and alert. He denies fevers or chills. - Current Medication List Current Medications: Active Medications Heparin Sodium (Porcine) (Heparin -) 5,000 unit SQ BID EMMA Last Admin: 11/15/19 09:27 Dose: 5,000 unit Documented by: Metronidazole (Flagyl 500mg Premixed Ivpb -) 500 mg in 100 mls @ 100 mls/hr IVPB Q8H-IV EMMA Last Admin: 11/15/19 09:29 Dose: 100 mls/hr Documented by: Piperacillin Sod/Tazobactam (Sod 3.375 gm/ Dextrose) 50 mls @ 100 mls/hr IVPB Q8H-IV EMMA; Protocol Last Admin: 11/15/19 09:30 Dose: 100 mls/hr Documented by: Dextrose/Sodium Chloride (Dextrose 5%-Normal Saline+20 Meq Kcl -) 20 meq in 1,000 mls @ 83 mls/hr IV ASDIR EMMA Last Admin: 11/14/19 22:06 Dose: 83 mls/hr Documented by: Tramadol HCl (Ultram -) 50 mg PO Q8H PRN PRN Reason: PAIN LEVEL 6-10 Last Admin: 11/15/19 08:31 Dose: 50 mg Documented by: - Objective Vital Signs: Vital Signs Temperature 98.6 F 11/15/19 14:00 Pulse Rate 72 11/15/19 14:00 Respiratory Rate 20 11/15/19 14:00 Blood Pressure 98/65 11/15/19 14:00 O2 Sat by Pulse Oximetry (%) 97 11/15/19 08:27 Constitutional: Yes: Calm Eyes: Yes: Conjunctiva Clear HENT: Yes: Atraumatic Neck: Yes: Supple Cardiovascular: Yes: S1, S2 Respiratory: Yes: CTA Bilaterally Gastrointestinal: Yes: Soft Genitourinary: Yes: WNL Musculoskeletal: Yes: WNL Edema: No Neurological: Yes: Oriented Psychiatric: Yes: Oriented Labs: CBC, BMP 11/15/19 06:45 11/15/19 06:45 INR, PTT INR 1.22 (0.83-1.09) H 11/11/19 17:18 Problem List - Problems (1) Hypokalemia Code(s): E87.6 - HYPOKALEMIA (2) Hyponatremia Code(s): E87.1 - HYPO-OSMOLALITY AND HYPONATREMIA (3) Abdominal pain Code(s): R10.9 - UNSPECIFIED ABDOMINAL PAIN Qualifiers: Abdominal location: lower abdomen, unspecified Qualified Code(s): R10.30 - Lower abdominal pain, unspecified Assessment/Plan Current Medications Generic Name Dose Route Start Last Admin Trade Name Freq PRN Reason Stop Dose Admin Heparin Sodium (Porcine) 5,000 unit 11/13/19 10:00 11/15/19 09:27 Heparin - SQ 5,000 unit BID EMMA Administration Metronidazole 500 mg in 100 mls @ 100 mls/hr 11/12/19 03:30 11/15/19 09:29 Flagyl 500mg Premixed Ivpb - IVPB 100 mls/hr Q8H-IV EMMA Administration Piperacillin Sod/Tazobactam 50 mls @ 100 mls/hr 11/13/19 02:00 11/15/19 09:30 Sod 3.375 gm/ Dextrose IVPB 100 mls/hr Q8H-IV EMMA Administration Protocol Dextrose/Sodium Chloride 20 meq in 1,000 mls @ 83 mls/hr 11/14/19 21:00 11/14/19 22:06 Dextrose 5%-Normal Saline+20 Meq Kcl - IV 83 mls/hr ASDIR EMMA Administration Tramadol HCl 50 mg 11/13/19 09:34 11/15/19 08:31 Ultram - PO 50 mg Q8H PRN Administration PAIN LEVEL 6-10 Impression 1. hyponatremia 2. pericolonic abscess 3. etoh abuse 4. anemia 5. copd 6. microscopic hematuria 7. active smoker 8. hypokalemia Plan - will give another dose of potassium - will give a salt tab - repeat labs in am - refusing fluids - surgery input appreciated - cont abx
--- NOTE | 2019-11-15 15:56 | PN ---
Progress Note, Physician Chief Complaint: AWAKE ALERT C/O HE IS HUNGRY ABDOMINAL PAIN STILL MODERATE - Current Medication List Current Medications: Active Medications Heparin Sodium (Porcine) (Heparin -) 5,000 unit SQ BID EMMA Last Admin: 11/15/19 09:27 Dose: 5,000 unit Documented by: Metronidazole (Flagyl 500mg Premixed Ivpb -) 500 mg in 100 mls @ 100 mls/hr IVPB Q8H-IV EMMA Last Admin: 11/15/19 09:29 Dose: 100 mls/hr Documented by: Piperacillin Sod/Tazobactam (Sod 3.375 gm/ Dextrose) 50 mls @ 100 mls/hr IVPB Q8H-IV EMMA; Protocol Last Admin: 11/15/19 09:30 Dose: 100 mls/hr Documented by: Dextrose/Sodium Chloride (Dextrose 5%-Normal Saline+20 Meq Kcl -) 20 meq in 1,000 mls @ 83 mls/hr IV ASDIR EMMA Last Admin: 11/14/19 22:06 Dose: 83 mls/hr Documented by: Tramadol HCl (Ultram -) 50 mg PO Q8H PRN PRN Reason: PAIN LEVEL 6-10 Last Admin: 11/15/19 08:31 Dose: 50 mg Documented by: - Objective Vital Signs: Vital Signs Temperature 98.6 F 11/15/19 14:00 Pulse Rate 72 11/15/19 14:00 Respiratory Rate 20 11/15/19 14:00 Blood Pressure 98/65 11/15/19 14:00 O2 Sat by Pulse Oximetry (%) 97 11/15/19 08:27 Constitutional: Yes: Moderate Distress Cardiovascular: Yes: Regular Rate and Rhythm Respiratory: Yes: Diminished, On Nasal O2, Rhonchi Gastrointestinal: Yes: Soft, Tenderness Genitourinary: Yes: WNL Labs: CBC, BMP 11/15/19 06:45 11/15/19 06:45 INR, PTT INR 1.22 (0.83-1.09) H 11/11/19 17:18 Problem List - Problems (1) Diverticulitis of large intestine with complication Code(s): K57.32 - DVTRCLI OF LG INT W/O PERFORATION OR ABSCESS W/O BLEEDING (2) Hypochloremia Code(s): E87.8 - OTH DISORDERS OF ELECTROLYTE AND FLUID BALANCE, NEC (3) Hypokalemia Code(s): E87.6 - HYPOKALEMIA (4) Hyponatremia Code(s): E87.1 - HYPO-OSMOLALITY AND HYPONATREMIA (5) Leukocytosis Code(s): D72.829 - ELEVATED WHITE BLOOD CELL COUNT, UNSPECIFIED Qualifiers: Leukocytosis type: unspecified Qualified Code(s): D72.829 - Elevated white blood cell count, unspecified (6) Abdominal pain Code(s): R10.9 - UNSPECIFIED ABDOMINAL PAIN Qualifiers: Abdominal location: lower abdomen, unspecified Qualified Code(s): R10.30 - Lower abdominal pain, unspecified (7) Abscess Code(s): L02.91 - CUTANEOUS ABSCESS, UNSPECIFIED (8) Alcohol dependence Code(s): F10.20 - ALCOHOL DEPENDENCE, UNCOMPLICATED (9) Alcohol use disorder Code(s): [id number] - (10) COPD (chronic obstructive pulmonary disease) Code(s): J44.9 - CHRONIC OBSTRUCTIVE PULMONARY DISEASE, UNSPECIFIED Qualifiers: COPD type: unspecified COPD Qualified Code(s): J44.9 - Chronic obstructive pulmonary disease, unspecified (11) Schizophrenia Code(s): F20.9 - SCHIZOPHRENIA, UNSPECIFIED Assessment/Plan NPO, IV ANTIBIOTICS REPLETE KCL, ON NS IVF FOR HYPONATREMIA OOB TO CHAIR WITH ASSIST SURGERY AND ID EVAL DVT PROPHYLAXIS ETOH ABUSE 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 WILL CONTINUE IV ABX AND MONITOR WITH CT SCANS.
[2019-11-15] MEDS: KETOROLAC TROMETHAMINE 30 MG/1 ML VIAL IVPUSH SCH (18:09)
[2019-11-15] MEDS: D5-NS + 20 MEQ KCL - 20 MEQ/1,000 ML INFUS.BAG IV SCH (21:32)
[2019-11-16] MEDS ORDERED: DEXTROSE 5%-WATER - 50 ML IVPB ONE ×3 (00:55→17:30)
[2019-11-16] MEDS ORDERED: PIPERACILLIN/TAZOBACTAM 3.375 GM VIAL IVPB ONE ×3 (00:55→17:28)
[2019-11-16] MEDS: KETOROLAC TROMETHAMINE 30 MG/1 ML VIAL IVPUSH SCH ×3 (02:04→17:44)
[2019-11-16] MEDS: PIPERACILLIN/TAZOB 3.375 GM 3.375 GM in DEXTROSE 5%-WATER - 50 ML IVPB SCH ×3 (02:05→17:44)
[2019-11-16 08:01] LABS: ALBUMIN 1.7 g/dl (3.4-5.0); BILIRUBIN,TOTAL 0.5 mg/dL (0.2-1); CALCIUM 7.2 mg/dL (8.5-10.1); CREATININE 0.5 mg/dL (0.55-1.3); POTASSIUM 4.4 mmol/L (3.5-5.1)
[2019-11-16 08:09] LABS: BLOOD UREA NITROGEN 1.5 mg/dL (7-18)
[2019-11-16] MEDS: NICOTINE 21 MG/24 HOURS TOPICAL PATCH TD SCH (10:13)
[2019-11-16] MEDS: HEPARIN NA (PORCINE) 5,000 UNITS/ML 1ML VIAL SQ SCH ×2 (10:14→22:00)
--- NOTE | 2019-11-16 13:37 | PN ---
Progress Note, Physician Chief Complaint: Alcohol Abuse Divertulosis Pericolonic Abscess History of Present Illness: Previous notes and events reviewed awake and alert NAD patient states abdominal pain is the same denies nausea/vomiting denies chest pain or SOB repeat CTAP reviewed - Current Medication List Current Medications: Active Medications Heparin Sodium (Porcine) (Heparin -) 5,000 unit SQ BID [facility] Last Admin: 11/16/19 10:14 Dose: 5,000 unit Documented by: Metronidazole (Flagyl 500mg Premixed Ivpb -) 500 mg in 100 mls @ 100 mls/hr IVPB Q8H-IV [facility] Last Admin: 11/16/19 10:12 Dose: 100 mls/hr Documented by: Piperacillin Sod/Tazobactam (Sod 3.375 gm/ Dextrose) 50 mls @ 100 mls/hr IVPB Q8H-IV [facility]; Protocol Last Admin: 11/16/19 10:14 Dose: 100 mls/hr Documented by: Dextrose/Sodium Chloride (Dextrose 5%-Normal Saline+20 Meq Kcl -) 20 meq in 1,000 mls @ 83 mls/hr IV ASDIR [facility] Last Admin: 11/15/19 21:32 Dose: 83 mls/hr Documented by: Ketorolac Tromethamine (Toradol Injection -) 30 mg IVPUSH Q8H-IV [facility] Stop: 11/20/19 17:59 Last Admin: 11/16/19 10:13 Dose: 30 mg Documented by: Nicotine (Nicoderm Patch -) 21 mg TD DAILY [facility] Last Admin: 11/16/19 10:13 Dose: 21 mg Documented by: Tramadol HCl (Ultram -) 50 mg PO Q8H PRN PRN Reason: PAIN LEVEL 6-10 Last Admin: 11/15/19 08:31 Dose: 50 mg Documented by: - Objective Vital Signs: Vital Signs Temperature 98.1 F 11/16/19 09:00 Pulse Rate 64 11/16/19 09:00 Respiratory Rate 18 11/16/19 09:00 Blood Pressure 109/63 11/16/19 09:00 O2 Sat by Pulse Oximetry (%) 98 11/16/19 09:00 Constitutional: Yes: No Distress, Calm Eyes: Yes: Conjunctiva Clear HENT: Yes: Atraumatic Cardiovascular: Yes: Regular Rate and Rhythm Respiratory: Yes: Regular, Rhonchi Gastrointestinal: Yes: Normal Bowel Sounds, Soft, Tenderness (llq) Musculoskeletal: Yes: Muscle Weakness Extremities: Yes: WNL Edema: No Neurological: Yes: Alert, Oriented Psychiatric: Yes: Alert, Oriented Labs: CBC, BMP 11/15/19 06:45 11/16/19 05:20 INR, PTT INR 1.22 (0.83-1.09) H 11/11/19 17:18 Microbiology 11/12/19 00:17 Blood - Peripheral Venous Blood Culture - Preliminary NO GROWTH OBTAINED AFTER 96 HOURS, INCUBATION TO CONTINUE FOR 1 DAYS. 11/12/19 00:17 Blood - Peripheral Venous Blood Culture - Preliminary NO GROWTH OBTAINED AFTER 96 HOURS, INCUBATION TO CONTINUE FOR 1 DAYS. 11/11/19 20:20 Urine - Urine Clean Catch Urine Culture - Final NO GROWTH OBTAINED Problem List - Problems (1) Diverticulitis of large intestine with complication Assessment/Plan: Surgery on board repeat CTAP shows interval worsening of previously described mid sigmoid colon diverticulitis/colitis now involving the rest of the distal sigmoid colon, interval worsening in the degree of wall thickening at the mid right sigmoid colon resulting in partial to almost complete obstruction as well as interval increase in size (4x3.2cm) of previously visualized adjacent collection/abscess, interval small amount of free fluid in RUQ and paracolic gutter, mild thickening of the urinary bladder wall likely due to partial distention or surrounding inflammatory changes, small right inguinal hernia containing a small bowel loop in its upper portion due to severe COPD patient is not a candidate for surgery at present~IR consult leukocytosis Flagyl, Zosyn BC neg Code(s): K57.32 - DVTRCLI OF LG INT W/O PERFORATION OR ABSCESS W/O BLEEDING (2) Hypokalemia Assessment/Plan: resolved K 4.4 D5NS + 20mEq KCl Code(s): E87.6 - HYPOKALEMIA (3) Hyponatremia Assessment/Plan: resolving Na 135 monitor electrolyte daily Code(s): E87.1 - HYPO-OSMOLALITY AND HYPONATREMIA (4) Abdominal pain Assessment/Plan: GI and Surgery on board repeat CTAP shows interval worsening of previously described mid sigmoid colon diverticulitis/colitis now involving the rest of the distal sigmoid colon, interval worsening in the degree of wall thickening at the mid right sigmoid colon resulting in partial to almost complete obstruction as well as interval increase in size (4x3.2cm) of previously visualized adjacent collection/abscess, interval small amount of free fluid in RUQ and paracolic gutter, mild thickening of the urinary bladder wall likely due to partial distention or surrounding inflammatory changes, small right inguinal hernia containing a small bowel loop in its upper portion due to severe COPD patient is not a candidate for surgery at present~IR consult leukocytosis Flagyl, Zosyn BC neg Code(s): R10.9 - UNSPECIFIED ABDOMINAL PAIN Qualifiers: Abdominal location: lower abdomen, unspecified Qualified Code(s): R10.30 - Lower abdominal pain, unspecified (5) Alcohol dependence Assessment/Plan: School Manager Dr Pastor consult Thiamine, MVI, Folic Acid seizure precaution Code(s): F10.20 - ALCOHOL DEPENDENCE, UNCOMPLICATED (6) COPD (chronic obstructive pulmonary disease) Assessment/Plan: Pulm on board O2 via NC keep SpO2 >90% CTAP shows interval bibasil atelectatic changes and consolidation, right more than left as well as small bilateral pleural effusion, right more than left, moderate COPD changes involving included portion of JUAN and RML Code(s): J44.9 - CHRONIC OBSTRUCTIVE PULMONARY DISEASE, UNSPECIFIED Qualifiers: COPD type: unspecified COPD Qualified Code(s): J44.9 - Chronic obstructive pulmonary disease, unspecified (7) Hypothyroidism, unspecified Assessment/Plan: Levothyroxine Code(s): E03.9 - HYPOTHYROIDISM, UNSPECIFIED Qualifiers: 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
--- NOTE | 2019-11-16 14:36 | PN ---
Progress Note, Physician History of Present Illness: Pt seen and examined at bedside. He is awake and alert. He feels abd pain is improving. - Current Medication List Current Medications: Active Medications Heparin Sodium (Porcine) (Heparin -) 5,000 unit SQ BID [facility] Last Admin: 11/16/19 10:14 Dose: 5,000 unit Documented by: Metronidazole (Flagyl 500mg Premixed Ivpb -) 500 mg in 100 mls @ 100 mls/hr IVPB Q8H-IV [facility] Last Admin: 11/16/19 10:12 Dose: 100 mls/hr Documented by: Piperacillin Sod/Tazobactam (Sod 3.375 gm/ Dextrose) 50 mls @ 100 mls/hr IVPB Q8H-IV [facility]; Protocol Last Admin: 11/16/19 10:14 Dose: 100 mls/hr Documented by: Dextrose/Sodium Chloride (Dextrose 5%-Normal Saline+20 Meq Kcl -) 20 meq in 1,000 mls @ 83 mls/hr IV ASDIR [facility] Last Admin: 11/15/19 21:32 Dose: 83 mls/hr Documented by: Ketorolac Tromethamine (Toradol Injection -) 30 mg IVPUSH Q8H-IV [facility] Stop: 11/20/19 17:59 Last Admin: 11/16/19 10:13 Dose: 30 mg Documented by: Nicotine (Nicoderm Patch -) 21 mg TD DAILY [facility] Last Admin: 11/16/19 10:13 Dose: 21 mg Documented by: Tramadol HCl (Ultram -) 50 mg PO Q8H PRN PRN Reason: PAIN LEVEL 6-10 Last Admin: 11/15/19 08:31 Dose: 50 mg Documented by: - Objective Vital Signs: Vital Signs Temperature 98.1 F 11/16/19 09:00 Pulse Rate 64 11/16/19 09:00 Respiratory Rate 18 11/16/19 09:00 Blood Pressure 109/63 11/16/19 09:00 O2 Sat by Pulse Oximetry (%) 98 11/16/19 09:00 Constitutional: Yes: Calm Eyes: Yes: Conjunctiva Clear HENT: Yes: Atraumatic Neck: Yes: Supple Cardiovascular: Yes: S1, S2 Respiratory: Yes: CTA Bilaterally Gastrointestinal: Yes: Soft Genitourinary: Yes: WNL Musculoskeletal: Yes: WNL Edema: No Neurological: Yes: Oriented Psychiatric: Yes: Oriented Labs: CBC, BMP 11/15/19 06:45 11/16/19 05:20 INR, PTT INR 1.22 (0.83-1.09) H 11/11/19 17:18 Problem List - Problems (1) Hypokalemia Code(s): E87.6 - HYPOKALEMIA (2) Hyponatremia Code(s): E87.1 - HYPO-OSMOLALITY AND HYPONATREMIA (3) Abdominal pain Code(s): R10.9 - UNSPECIFIED ABDOMINAL PAIN Qualifiers: Abdominal location: lower abdomen, unspecified Qualified Code(s): R10.30 - Lower abdominal pain, unspecified Assessment/Plan Current Medications Generic Name Dose Route Start Last Admin Trade Name Freq PRN Reason Stop Dose Admin Heparin Sodium (Porcine) 5,000 unit 11/13/19 10:00 11/16/19 10:14 Heparin - SQ 5,000 unit BID EMMA Administration Metronidazole 500 mg in 100 mls @ 100 mls/hr 11/12/19 03:30 11/16/19 10:12 Flagyl 500mg Premixed Ivpb - IVPB 100 mls/hr Q8H-IV [facility]MA Administration Piperacillin Sod/Tazobactam 50 mls @ 100 mls/hr 11/13/19 02:00 11/16/19 10:14 Sod 3.375 gm/ Dextrose IVPB 100 mls/hr Q8H-IV [facility]MA Administration Protocol Dextrose/Sodium Chloride 20 meq in 1,000 mls @ 83 mls/hr 11/14/19 21:00 11/15/19 21:32 Dextrose 5%-Normal Saline+20 Meq Kcl - IV 83 mls/hr ASDIR [facility]MA Administration Ketorolac Tromethamine 30 mg 11/15/19 18:00 11/16/19 10:13 Toradol Injection - IVPUSH 11/20/19 17:59 30 mg Q8H-IV [facility]MA Administration Nicotine 21 mg 11/16/19 10:00 11/16/19 10:13 Nicoderm Patch - TD 21 mg DAILY [facility]MA Administration Tramadol HCl 50 mg 11/13/19 09:34 11/15/19 08:31 Ultram - PO 50 mg Q8H PRN Administration PAIN LEVEL 6-10 Impression 1. hyponatremia 2. pericolonic abscess 3. etoh abuse 4. anemia 5. copd 6. microscopic hematuria 7. active smoker 8. hypokalemia Plan - cont fluids while NPO - repeat labs in am - potassium improved - cont abx
--- NOTE | 2019-11-16 17:35 | CONSULT ---
Consult Detox [facility] Reason for Current Admission/Consult: Alcohol use disorder Referred by:: Dr. Marlow - History History of Present Illness: Mr. Alvarez is a 54 yo gentleman who was admitted on 11/11 with complaints of left lower quadrant pain. PMH: diverticulitis, COPD, EtOH abuse, hyponatremia, hypocalcemia, inguinal hernia, folliculitis, chronic low back pain Psych; schizophrenia PSH; hernia SOC: homeless, lives in a van Since admission he has been seen by GI who diagnosed the patient as having a pericolonic abscess. He has been treated for low potassium. A repeat abdominal CT reveals worsening of the abscess with increased size. He is not felt to be a surgical candidate due to COPD, therefore, IR has been consulted for possible drainage. Substance use hx Alcohol: 6-7 beers, each 18 ounces. First drink at the age of 13y. Last drink 6 weeks ago. Blackouts: "a couple", the last over 4 years ago. No hx of withdrawal seizures. 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 His longest abstinent period was for 3 years. He was in detox at [facility] 5-6 years ago. He recalls another detox at [facility] when he was in his 20's. Nicotine: 2 cigs per day - History Source History Provided By: Patient Limitations to Obtaining History: No Limitations - Alcohol/Substance Use Hx Alcohol Use: Yes - Past Medical History Pulmonary: Yes: COPD Gastrointestinal: Yes: Diverticulitis (10/27) Hepatobiliary: Yes: Other (alcoholic liver disease) Renal/: Yes: Other (hyponatremia) Infectious Disease: Yes: Other (chronic folliculitis/fungal skin disease?) Psych: Yes: Addictions (alcohol and cigarettes), Schizophrenia Musculoskeletal: Yes: Chronic low back pain Endocrine: Yes: Other (Hyponatremia) Dermatology: Yes: Other (chronic pruritic scaly rash lower abdomen, inguinal area and lower extremities ) Additional Medical History: Hyponatremia and prone to hypoglycemia. Bilateral inguinal hernias - Past Surgical History Past Surgical History: Yes: Hernia Repair (right inguinal hernia repair). No: Colonoscopy CIWA Score - CIWA Score Nausea/Vomitin-Mild Nausea/No Vomiting Muscle Tremors: None Anxiety: 0-No Anxiety, at Ease Agitation: 0-Normal Activity Paroxysmal Sweats: No Perspiration Orientation: 0-Oriented Tacttile Disturbances: 0-None Auditory Disturbances: 0-None Visual Disturbances: 0-None Headache: 0-None Present CIWA-Ar Total Score: 1 Assessment Plan - Diagnosis (1) Alcohol use disorder Status: Chronic - Plan Plan: No need for Librium withdrawal protocol at this time, pt has not had any alcohol in 6 weeks. He currently has no signs of withdrawal. His abdominal pain is mo st certainly from the pericolonic abscess and not alcohol withdrawal related. Would benefit from emt intermediate rehab upon discharge. Pt has mentioned that he would like to go to an Adult Home in [facility] with outpatient services. Reconsult prn.
--- NOTE | 2019-11-16 18:06 | PN ---
Progress Note, Physician Chief Complaint: acute perforated diverticulitis with H[place]hey 1 pericolic abscess History of Present Illness: Patient has less pain On clear liquids Reports to have diarrhea - Current Medication List Current Medications: Active Medications Folic Acid (Folic Acid -) 1 mg PO DAILY [facility] Heparin Sodium (Porcine) (Heparin -) 5,000 unit SQ BID [facility] Last Admin: 11/16/19 10:14 Dose: 5,000 unit Documented by: Metronidazole (Flagyl 500mg Premixed Ivpb -) 500 mg in 100 mls @ 100 mls/hr IVPB Q8H-IV [facility] Last Admin: 11/16/19 10:12 Dose: 100 mls/hr Documented by: Piperacillin Sod/Tazobactam (Sod 3.375 gm/ Dextrose) 50 mls @ 100 mls/hr IVPB Q8H-IV [facility]; Protocol Last Admin: 11/16/19 17:44 Dose: 100 mls/hr Documented by: Dextrose/Sodium Chloride (Dextrose 5%-Normal Saline+20 Meq Kcl -) 20 meq in 1,000 mls @ 83 mls/hr IV ASDIR [facility] Last Admin: 11/15/19 21:32 Dose: 83 mls/hr Documented by: Ketorolac Tromethamine (Toradol Injection -) 30 mg IVPUSH Q8H-IV [facility] Stop: 11/20/19 17:59 Last Admin: 11/16/19 17:44 Dose: 30 mg Documented by: Levothyroxine Sodium (Synthroid Injection -) 25 mcg IVPUSH DAILY [facility] Multivitamins/Minerals/Vitamin C (Tab-A-Vit -) 1 tab PO DAILY [facility] Nicotine (Nicoderm Patch -) 21 mg TD DAILY [facility] Last Admin: 11/16/19 10:13 Dose: 21 mg Documented by: Thiamine HCl (Vitamin B1 -) 100 mg PO DAILY [facility] Tramadol HCl (Ultram -) 50 mg PO Q8H PRN PRN Reason: PAIN LEVEL 6-10 Last Admin: 11/15/19 08:31 Dose: 50 mg Documented by: - Objective Vital Signs: Vital Signs Temperature 98.2 F 11/16/19 14:00 Pulse Rate 67 11/16/19 14:00 Respiratory Rate 18 11/16/19 14:00 Blood Pressure 124/72 11/16/19 14:00 O2 Sat by Pulse Oximetry (%) 98 11/16/19 09:00 Constitutional: Yes: Calm Gastrointestinal: Yes: Soft, Distention (mild), Tenderness (mild at lower quadrants) Labs: CBC, BMP 11/15/19 06:45 11/16/19 05:20 INR, PTT INR 1.22 (0.83-1.09) H 11/11/19 17:18 Problem List - Problems (1) Diverticulitis of large intestine with complication Assessment/Plan: IR deemed abscess inaccessible at this time. Recommended repeat CT in 7 days and insertion of chavez if abscess drainage is required. Patient counseled about possibility of surgical management with high chance of colostomy. He is categorically not agreeing to the possible Rx because of his situation of being homeless and having to manage the colostomy on his own. Will continue with IV antibiotics for now and obtain a follow up CT in 5 days. Code(s): K57.32 - DVTRCLI OF LG INT W/O PERFORATION OR ABSCESS W/O BLEEDING
[2019-11-16] MEDS: D5-NS + 20 MEQ KCL - 20 MEQ/1,000 ML INFUS.BAG IV SCH (21:16)
[2019-11-17] MEDS ORDERED: PIPERACILLIN/TAZOBACTAM 3.375 GM VIAL IVPB ONE ×3 (01:11→17:41)
[2019-11-17] MEDS ORDERED: DEXTROSE 5%-WATER - 50 ML IVPB ONE ×3 (01:11→17:41)
[2019-11-17] MEDS: KETOROLAC TROMETHAMINE 30 MG/1 ML VIAL IVPUSH SCH ×3 (02:15→17:55)
[2019-11-17] MEDS: PIPERACILLIN/TAZOB 3.375 GM 3.375 GM in DEXTROSE 5%-WATER - 50 ML IVPB SCH ×3 (02:15→18:01)
[2019-11-17 07:45] LABS: HEMATOCRIT 36.4 % (35.4-49); HEMOGLOBIN 12.4 GM/dL (11.7-16.9); MCH 31.4 pg (25.7-33.7); MEAN CELL VOLUME 92.4 fl (80-96); PLATELET COUNT 327 K/MM3 (134-434); RBC 3.94 M/mm3 (4.00-5.60); RDW 13.9 % (11.9-15.9); WHITE BLOOD COUNT 10.4 K/mm3 (4.0-10.0)
[2019-11-17 07:55] LABS: ALBUMIN 1.8 g/dl (3.4-5.0); BILIRUBIN,TOTAL 0.4 mg/dL (0.2-1); CALCIUM 7.7 mg/dL (8.5-10.1); CREATININE 0.6 mg/dL (0.55-1.3); MAGNESIUM 1.5 mg/dL (1.8-2.4); TOT PROT 4.2 g/dl (6.4-8.2)
[2019-11-17 07:57] LABS: BLOOD UREA NITROGEN 1.8 mg/dL (7-18)
[2019-11-17] MEDS: NICOTINE 21 MG/24 HOURS TOPICAL PATCH TD SCH (09:15)
[2019-11-17] MEDS: HEPARIN NA (PORCINE) 5,000 UNITS/ML 1ML VIAL SQ SCH ×2 (09:15→22:17)
--- NOTE | 2019-11-17 09:15 | PN ---
Progress Note, Physician Chief Complaint: EVENTS AND NOTES REVIEWED COMFORTABLE ANXIOUS NO FEVERS - Current Medication List Current Medications: Active Medications Folic Acid (Folic Acid -) 1 mg PO DAILY [facility] Heparin Sodium (Porcine) (Heparin -) 5,000 unit SQ BID [facility] Last Admin: 11/16/19 22:00 Dose: 5,000 unit Documented by: Metronidazole (Flagyl 500mg Premixed Ivpb -) 500 mg in 100 mls @ 100 mls/hr IVPB Q8H-IV [facility] Last Admin: 11/17/19 02:52 Dose: 100 mls/hr Documented by: Piperacillin Sod/Tazobactam (Sod 3.375 gm/ Dextrose) 50 mls @ 100 mls/hr IVPB Q8H-IV [facility]; Protocol Last Admin: 11/17/19 02:15 Dose: 100 mls/hr Documented by: Dextrose/Sodium Chloride (Dextrose 5%-Normal Saline+20 Meq Kcl -) 20 meq in 1,000 mls @ 83 mls/hr IV ASDIR [facility] Last Admin: 11/16/19 21:16 Dose: 83 mls/hr Documented by: Amino Acids (Clinimix -) 1,000 mls @ 84 mls/hr IV Q12H [facility] Ketorolac Tromethamine (Toradol Injection -) 30 mg IVPUSH Q8H-IV [facility] Stop: 11/20/19 17:59 Last Admin: 11/17/19 02:15 Dose: 30 mg Documented by: Levothyroxine Sodium (Synthroid Injection -) 25 mcg IVPUSH DAILY [facility] Multivitamins/Minerals/Vitamin C (Tab-A-Vit -) 1 tab PO DAILY [facility] Nicotine (Nicoderm Patch -) 21 mg TD DAILY [facility] Last Admin: 11/16/19 10:13 Dose: 21 mg Documented by: Thiamine HCl (Vitamin B1 -) 100 mg PO DAILY [facility] Tramadol HCl (Ultram -) 50 mg PO Q8H PRN PRN Reason: PAIN LEVEL 6-10 Last Admin: 11/15/19 08:31 Dose: 50 mg Documented by: - Objective Vital Signs: Vital Signs Temperature 98.4 F 11/17/19 06:00 Pulse Rate 67 11/17/19 06:00 Respiratory Rate 18 11/17/19 06:00 Blood Pressure 123/74 11/17/19 06:00 O2 Sat by Pulse Oximetry (%) 98 11/16/19 21:00 Constitutional: Yes: Mild Distress Cardiovascular: Yes: Regular Rate and Rhythm Respiratory: Yes: Diminished, On Nasal O2 Gastrointestinal: Yes: Soft, Tenderness Genitourinary: Yes: WNL Labs: CBC, BMP 11/17/19 05:18 11/17/19 05:18 INR, PTT INR 1.22 (0.83-1.09) H 11/11/19 17:18 Problem List - Problems (1) Diverticulitis of large intestine with complication Code(s): K57.32 - DVTRCLI OF LG INT W/O PERFORATION OR ABSCESS W/O BLEEDING (2) Hypochloremia Code(s): E87.8 - OTH DISORDERS OF ELECTROLYTE AND FLUID BALANCE, NEC (3) Hypokalemia Code(s): E87.6 - HYPOKALEMIA (4) Hyponatremia Code(s): E87.1 - HYPO-OSMOLALITY AND HYPONATREMIA (5) Leukocytosis Code(s): D72.829 - ELEVATED WHITE BLOOD CELL COUNT, UNSPECIFIED Qualifiers: Leukocytosis type: unspecified Qualified Code(s): D72.829 - Elevated white blood cell count, unspecified (6) Abdominal pain Code(s): R10.9 - UNSPECIFIED ABDOMINAL PAIN Qualifiers: Abdominal location: lower abdomen, unspecified Qualified Code(s): R10.30 - Lower abdominal pain, unspecified (7) Abscess Code(s): L02.91 - CUTANEOUS ABSCESS, UNSPECIFIED (8) Alcohol dependence Code(s): F10.20 - ALCOHOL DEPENDENCE, UNCOMPLICATED (9) Alcohol use disorder Code(s): SFE3198 - (10) COPD (chronic obstructive pulmonary disease) Code(s): J44.9 - CHRONIC OBSTRUCTIVE PULMONARY DISEASE, UNSPECIFIED Qualifiers: COPD type: unspecified COPD Qualified Code(s): J44.9 - Chronic obstructive pulmonary disease, unspecified (11) Schizophrenia Code(s): F20.9 - SCHIZOPHRENIA, UNSPECIFIED Assessment/Plan CLEAR LIQUIDS ON IV ANTIBIOTICS REPLETE KCL, ON NS IVF FOR HYPONATREMIA OOB TO CHAIR WITH ASSIST SURGERY AND ID EVAL NOT A SURGICAL CANDIDATE WITH COPD WOULD LIKELY NEED INTUBATION AND RISK TRAC HEOSTOMY FPC ABX, D/W ID FOR LIKELY PICC LINE AND SNF PLACEMENT DVT PROPHYLAXIS ETOH ABUSE 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
[2019-11-17] MEDS ORDERED: AMINO ACIDS 4.25%/D5W 1,000 ML IV SCH (09:30)
[2019-11-17] MEDS ORDERED: MAGNESIUM SULF 50% (8.12 MEQ/2 ML-1 GM VIAL) IVPB ONE ×2 (09:30→13:00)
[2019-11-17] MEDS ORDERED: LEVOTHYROXINE SODIUM 100 MCG VIAL IVPUSH SCH (10:00)
[2019-11-17] MEDS ORDERED: MULTIVITAMINS (DAILY MVI) TABLET (FP) PO SCH (10:00)
[2019-11-17] MEDS ORDERED: THIAMINE HCL 100 MG TABLET (FP) PO SCH (10:00)
[2019-11-17] MEDS ORDERED: FOLIC ACID 1 MG TABLET (FP) PO SCH (10:00)
--- NOTE | 2019-11-17 12:44 | PN ---
Progress Note, Physician History of Present Illness: Pt seen and examined at bedside. He is awake and alert. - Current Medication List Current Medications: Active Medications Folic Acid (Folic Acid -) 1 mg PO DAILY [facility] Last Admin: 11/17/19 09:15 Dose: 1 mg Documented by: Heparin Sodium (Porcine) (Heparin -) 5,000 unit SQ BID [facility] Last Admin: 11/17/19 09:15 Dose: 5,000 unit Documented by: Metronidazole (Flagyl 500mg Premixed Ivpb -) 500 mg in 100 mls @ 100 mls/hr IVPB Q8H-IV [facility] Last Admin: 11/17/19 09:15 Dose: 100 mls/hr Documented by: Piperacillin Sod/Tazobactam (Sod 3.375 gm/ Dextrose) 50 mls @ 100 mls/hr IVPB Q8H-IV [facility]; Protocol Last Admin: 11/17/19 09:22 Dose: 100 mls/hr Documented by: Amino Acids (Clinimix -) 1,000 mls @ 84 mls/hr IV Q12H [facility] Last Admin: 11/17/19 10:58 Dose: 84 mls/hr Documented by: Ketorolac Tromethamine (Toradol Injection -) 30 mg IVPUSH Q8H-IV [facility] Stop: 11/20/19 17:59 Last Admin: 11/17/19 09:46 Dose: 30 mg Documented by: Levothyroxine Sodium (Synthroid Injection -) 25 mcg IVPUSH DAILY [facility] Last Admin: 11/17/19 09:42 Dose: 25 mcg Documented by: Magnesium Sulfate (Magnesium Sulfate) 1 gm IVPB ONCE ONE Stop: 11/17/19 12:41 Multivitamins/Minerals/Vitamin C (Tab-A-Vit -) 1 tab PO DAILY [facility] Last Admin: 11/17/19 09:15 Dose: 1 tab Documented by: Nicotine (Nicoderm Patch -) 21 mg TD DAILY [facility] Last Admin: 11/17/19 09:15 Dose: Not Given Documented by: Thiamine HCl (Vitamin B1 -) 100 mg PO DAILY [facility] Last Admin: 11/17/19 09:16 Dose: 100 mg Documented by: - Objective Vital Signs: Vital Signs Temperature 98 F 11/17/19 10:00 Pulse Rate 64 11/17/19 10:00 Respiratory Rate 18 11/17/19 10:00 Blood Pressure 119/67 11/17/19 10:00 O2 Sat by Pulse Oximetry (%) 98 11/16/19 21:00 Constitutional: Yes: Calm Eyes: Yes: Conjunctiva Clear HENT: Yes: Atraumatic Neck: Yes: Supple Cardiovascular: Yes: S1, S2 Respiratory: Yes: CTA Bilaterally Gastrointestinal: Yes: Normal Bowel Sounds, Soft Genitourinary: Yes: WNL Musculoskeletal: Yes: WNL Edema: No Neurological: Yes: Oriented Psychiatric: Yes: Oriented Labs: CBC, BMP 11/17/19 05:18 11/17/19 05:18 INR, PTT INR 1.22 (0.83-1.09) H 11/11/19 17:18 Problem List - Problems (1) Hypokalemia Code(s): E87.6 - HYPOKALEMIA (2) Hyponatremia Code(s): E87.1 - HYPO-OSMOLALITY AND HYPONATREMIA (3) Abdominal pain Code(s): R10.9 - UNSPECIFIED ABDOMINAL PAIN Qualifiers: Abdominal location: lower abdomen, unspecified Qualified Code(s): R10.30 - Lower abdominal pain, unspecified Assessment/Plan Current Medications Generic Name Dose Route Start Last Admin Trade Name Freq PRN Reason Stop Dose Admin Folic Acid 1 mg 11/17/19 10:00 11/17/19 09:15 Folic Acid - PO 1 mg DAILY [facility] Administration Heparin Sodium (Porcine) 5,000 unit 11/13/19 10:00 11/17/19 09:15 Heparin - SQ 5,000 unit BID [facility] Administration Metronidazole 500 mg in 100 mls @ 100 mls/hr 11/12/19 03:30 11/17/19 09:15 Flagyl 500mg Premixed Ivpb - IVPB 100 mls/hr Q8H-IV [facility] Administration Piperacillin Sod/Tazobactam 50 mls @ 100 mls/hr 11/13/19 02:00 11/17/19 09:22 Sod 3.375 gm/ Dextrose IVPB 100 mls/hr Q8H-IV [facility] Administration Protocol Amino Acids 1,000 mls @ 84 mls/hr 11/17/19 09:30 11/17/19 10:58 Clinimix - IV 84 mls/hr Q12H [facility] Administration Ketorolac Tromethamine 30 mg 11/15/19 18:00 11/17/19 09:46 Toradol Injection - IVPUSH 11/20/19 17:59 30 mg Q8H-IV [facility] Administration Levothyroxine Sodium 25 mcg 11/17/19 10:00 11/17/19 09:42 Synthroid Injection - IVPUSH 25 mcg DAILY [facility] Administration Magnesium Sulfate 1 gm 11/17/19 12:40 Magnesium Sulfate IVPB 11/17/19 12:41 ONCE ONE Multivitamins/Minerals/Vitamin C 1 tab 11/17/19 10:00 11/17/19 09:15 Tab-A-Vit - PO 1 tab DAILY [facility] Administration Nicotine 21 mg 11/16/19 10:00 11/17/19 09:15 Nicoderm Patch - TD Not Given DAILY [facility] Thiamine HCl 100 mg 11/17/19 10:00 11/17/19 09:16 Vitamin B1 - PO 100 mg DAILY [facility] Administration Impression 1. hyponatremia 2. pericolonic abscess 3. etoh abuse 4. anemia 5. copd 6. microscopic hematuria 7. active smoker 8. hypokalemia Plan - cont clears - replace mag - monitor lytes - sodium is still low - cont abx
[2019-11-17] MEDS ORDERED: PIPERACILLIN/TAZOB 3.375 GM 3.375 GM in DEXTROSE 5%-WATER - 50 ML IVPB SCH (18:00)
--- NOTE | 2019-11-17 22:03 | PN ---
Progress Note, Physician History of Present Illness: AWAKE, ALERT SUPINE IN BED AFEBRILE WBC IMPROVED WNL - Current Medication List Current Medications: Active Medications Folic Acid (Folic Acid -) [address] [facility] Heparin Sodium (Porcine) (Heparin -) 5,000 unit SQ BID [facility] Metronidazole (Flagyl 500mg Premixed Ivpb -) 500 mg in 100 mls @ 100 mls/hr IVPB Q8H-IV [facility] Last Admin: 11/17/19 18:50 Dose: 100 mls/hr Documented by: Amino Acids (Clinimix -) 1,000 mls @ 84 mls/hr IV Q12H [facility] Piperacillin Sod/Tazobactam (Sod 3.375 gm/ Dextrose) 50 mls @ 100 mls/hr IVPB Q8H-IV [facility]; Protocol Last Admin: 11/17/19 18:01 Dose: 100 mls/hr Documented by: Ketorolac Tromethamine (Toradol Injection -) 30 mg IVPUSH Q8H-IV [facility] Stop: 11/20/19 17:59 Last Admin: 11/17/19 17:55 Dose: 30 mg Documented by: Levothyroxine Sodium (Synthroid Injection -) [address] [facility] Multivitamins/Minerals/Vitamin C (Tab-A-Vit -) [address] [facility] Nicotine (Nicoderm Patch -) 21 mg TD DAILY [facility] Thiamine HCl (Vitamin B1 -) [address] [facility] - Objective Vital Signs: Vital Signs Temperature 97.3 F L 11/17/19 18:00 Pulse Rate 71 11/17/19 18:00 Respiratory Rate 18 11/17/19 18:00 Blood Pressure 118/75 11/17/19 18:00 O2 Sat by Pulse Oximetry (%) 98 11/17/19 09:00 Constitutional: Yes: No Distress Eyes: Yes: Conjunctiva Clear Cardiovascular: Yes: Regular Rate and Rhythm, S1, S2 Respiratory: Yes: CTA Bilaterally Gastrointestinal: Yes: Normal Bowel Sounds, Soft, Other (NO TENDERNESS ELICITED) Edema: No Labs: CBC, BMP 11/17/19 05:18 11/17/19 05:18 INR, PTT INR 1.22 (0.83-1.09) H 11/11/19 17:18 Assessment/Plan RECURRENT DIVERTICULITIS DIVERTICULAR ABSCESS LEUKOCYTOSIS IMPROVED CONTINUE IV ANTIBIOTIC THERAPY IF OUTPATIENT TREATMENT PLANNED, ADVISE PICC FOR CEFTRIAXONE 2GM QD + FLAGYL 500MG PO TID FOR ADDITIONAL 14 DAYS
[2019-11-18] MEDS: AMINO ACIDS 4.25%/D5W 1,000 ML IV SCH ×2 (00:30→09:59)
[2019-11-18] MEDS ORDERED: PIPERACILLIN/TAZOBACTAM 3.375 GM VIAL IVPB ONE ×3 (02:19→17:46)
[2019-11-18] MEDS ORDERED: DEXTROSE 5%-WATER - 50 ML IVPB ONE ×3 (02:19→17:46)
[2019-11-18] MEDS: PIPERACILLIN/TAZOB 3.375 GM 3.375 GM in DEXTROSE 5%-WATER - 50 ML IVPB SCH ×3 (02:31→18:13)
[2019-11-18] MEDS: KETOROLAC TROMETHAMINE 30 MG/1 ML VIAL IVPUSH SCH ×3 (02:32→23:58)
[2019-11-18 08:58] LABS: HEMATOCRIT 38.7 % (35.4-49); MCH 30.9 pg (25.7-33.7); MCHC 33.5 g/dl (32.0-35.9); MEAN CELL VOLUME 92.3 fl (80-96); MEAN PLT VOLUME 7.6 fl (7.5-11.1); PLATELET COUNT 374 K/MM3 (134-434); RBC 4.19 M/mm3 (4.00-5.60); RDW 14.2 % (11.9-15.9); WHITE BLOOD COUNT 11.7 K/mm3 (4.0-10.0)
[2019-11-18 09:08] LABS: BLOOD UREA NITROGEN 4.4 mg/dL (7-18); CALCIUM 7.5 mg/dL (8.5-10.1); CREATININE 0.6 mg/dL (0.55-1.3); MAGNESIUM 2.1 mg/dL (1.8-2.4); POTASSIUM 3.6 mmol/L (3.5-5.1)
[2019-11-18] MEDS ORDERED: PT OWN MED DRAWER 7, Y5N ONE (09:19)
--- NOTE | 2019-11-18 09:31 | PN ---
Progress Note, Physician - Current Medication List Current Medications: Active Medications Folic Acid (Folic Acid -) 1 mg PO DAILY [facility] Heparin Sodium (Porcine) (Heparin -) 5,000 unit SQ BID [facility] Last Admin: 11/17/19 22:17 Dose: 5,000 unit Documented by: Metronidazole (Flagyl 500mg Premixed Ivpb -) 500 mg in 100 mls @ 100 mls/hr IVPB Q8H-IV [facility] Last Admin: 11/18/19 02:31 Dose: 100 mls/hr Documented by: Amino Acids (Clinimix -) 1,000 mls @ 84 mls/hr IV Q12H [facility] Last Admin: 11/18/19 00:30 Dose: 84 mls/hr Documented by: Piperacillin Sod/Tazobactam (Sod 3.375 gm/ Dextrose) 50 mls @ 100 mls/hr IVPB Q8H-IV [facility]; Protocol Last Admin: 11/18/19 02:31 Dose: 100 mls/hr Documented by: Ketorolac Tromethamine (Toradol Injection -) 30 mg IVPUSH Q8H-IV [facility] Stop: 11/20/19 17:59 Last Admin: 11/18/19 02:32 Dose: Not Given Documented by: Levothyroxine Sodium (Synthroid Injection -) 25 mcg IVPUSH DAILY [facility] Multivitamins/Minerals/Vitamin C (Tab-A-Vit -) 1 tab PO DAILY [facility] Nicotine (Nicoderm Patch -) 21 mg TD DAILY [facility] Thiamine HCl (Vitamin B1 -) 100 mg PO DAILY [facility] - Objective Vital Signs: Vital Signs Temperature 98.4 F 11/18/19 06:00 Pulse Rate 72 11/18/19 06:00 Respiratory Rate 18 11/18/19 06:00 Blood Pressure 115/68 11/18/19 06:00 O2 Sat by Pulse Oximetry (%) 95 11/17/19 21:00 Cardiovascular: Yes: Regular Rate and Rhythm Respiratory: Yes: Regular, CTA Bilaterally Gastrointestinal: Yes: Normal Bowel Sounds, Soft. No: Tenderness Labs: CBC, BMP 11/18/19 07:30 11/18/19 07:30 INR, PTT INR 1.22 (0.83-1.09) H 11/11/19 17:18 Problem List - Problems (1) Diverticulitis of large intestine with complication Code(s): K57.32 - DVTRCLI OF LG INT W/O PERFORATION OR ABSCESS W/O BLEEDING (2) Hypokalemia Code(s): E87.6 - HYPOKALEMIA (3) Alcohol dependence Code(s): F10.20 - ALCOHOL DEPENDENCE, UNCOMPLICATED (4) COPD (chronic obstructive pulmonary disease) Code(s): J44.9 - CHRONIC OBSTRUCTIVE PULMONARY DISEASE, UNSPECIFIED Qualifiers: COPD type: unspecified COPD Qualified Code(s): J44.9 - Chronic obstructive pulmonary disease, unspecified Assessment/Plan - Problems (1) Diverticulitis of large intestine with complication Assessment/Plan: Surgery on board repeat CTAP shows interval worsening of previously described mid sigmoid colon diverticulitis/colitis now involving the rest of the distal sigmoid colon, interval worsening in the degree of wall thickening at the mid right sigmoid colon resulting in partial to almost complete obstruction as well as interval increase in size (4x3.2cm) of previously visualized adjacent collection/abscess, interval small amount of free fluid in RUQ and paracolic gutter, mild thickening of the urinary bladder wall likely due to partial distention or surrounding inflammatory changes, small right inguinal hernia containing a small bowel loop in its upper portion due to severe COPD patient is not a candidate for surgery at present~IR consult leukocytosis Flagyl, Zosyn BC neg Code(s): K57.32 - DVTRCLI OF LG INT W/O PERFORATION OR ABSCESS W/O BLEEDING (2) Hypokalemia Assessment/Plan: resolved K 4.4 D5NS + 20mEq KCl Code(s): E87.6 - HYPOKALEMIA (3) Hyponatremia Assessment/Plan: resolving Na 135 monitor electrolyte daily Code(s): E87.1 - HYPO-OSMOLALITY AND HYPONATREMIA (4) Abdominal pain Assessment/Plan: GI and Surgery on board repeat CTAP shows interval worsening of previously described mid sigmoid colon diverticulitis/colitis now involving the rest of the distal sigmoid colon, interval worsening in the degree of wall thickening at the mid right sigmoid colon resulting in partial to almost complete obstruction as well as interval increase in size (4x3.2cm) of previously visualized adjacent collection/abscess, interval small amount of free fluid in RUQ and paracolic gutter, mild thickening of the urinary bladder wall likely due to partial distention or surrounding inflammatory changes, small right inguinal hernia containing a small bowel loop in its upper portion due to severe COPD patient is not a candidate for surgery at present~IR consult leukocytosis Flagyl, Zosyn BC neg Code(s): R10.9 - UNSPECIFIED ABDOMINAL PAIN Qualifiers: Abdominal location: lower abdomen, unspecified Qualified Code(s): R10.30 - Lower abdominal pain, unspecified (5) Alcohol dependence Assessment/Plan: [employer] Dr Pastor consult Thiamine, MVI, Folic Acid seizure precaution Code(s): F10.20 - ALCOHOL DEPENDENCE, UNCOMPLICATED (6) COPD (chronic obstructive pulmonary disease) Assessment/Plan: Pulm on board O2 via NC keep SpO2 >90% CTAP shows interval bibasil atelectatic changes and consolidation, right more than left as well as small bilateral pleural effusion, right more than left, moderate COPD changes involving included portion of JUAN and RML Code(s): J44.9 - CHRONIC OBSTRUCTIVE PULMONARY DISEASE, UNSPECIFIED Qualifiers: COPD type: unspecified COPD Qualified Code(s): J44.9 - Chronic obstructive pulmonary disease, unspecified (7) Hypothyroidism, unspecified Assessment/Plan: Levothyroxine Code(s): E03.9 - HYPOTHYROIDISM, UNSPECIFIED Qualifiers: 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
[2019-11-18] MEDS: MULTIVITAMINS (DAILY MVI) TABLET (FP) PO SCH (09:58)
[2019-11-18] MEDS: HEPARIN NA (PORCINE) 5,000 UNITS/ML 1ML VIAL SQ SCH ×2 (09:58→21:42)
[2019-11-18] MEDS: FOLIC ACID 1 MG TABLET (FP) PO SCH (09:58)
[2019-11-18] MEDS: NICOTINE 21 MG/24 HOURS TOPICAL PATCH TD SCH (10:00)
[2019-11-18] MEDS: LEVOTHYROXINE SODIUM 100 MCG VIAL IVPUSH SCH (10:00)
[2019-11-18] MEDS: THIAMINE HCL 100 MG TABLET (FP) PO SCH (10:01)
--- NOTE | 2019-11-18 17:18 | PN ---
Progress Note, Physician History of Present Illness: Pt seen and examined at bedside. He is awake and alert. He denies shortness of breath. - Current Medication List Current Medications: Active Medications Folic Acid (Folic Acid -) 1 mg PO DAILY [facility] Last Admin: 11/18/19 09:58 Dose: 1 mg Documented by: Heparin Sodium (Porcine) (Heparin -) 5,000 unit SQ BID [facility] Last Admin: 11/18/19 09:58 Dose: 5,000 unit Documented by: Metronidazole (Flagyl 500mg Premixed Ivpb -) 500 mg in 100 mls @ 100 mls/hr IVPB Q8H-IV [facility] Last Admin: 11/18/19 09:57 Dose: 100 mls/hr Documented by: Amino Acids (Clinimix -) 1,000 mls @ 84 mls/hr IV Q12H [facility] Last Admin: 11/18/19 09:59 Dose: Not Given Documented by: Piperacillin Sod/Tazobactam (Sod 3.375 gm/ Dextrose) 50 mls @ 100 mls/hr IVPB Q8H-IV [facility]; Protocol Last Admin: 11/18/19 09:57 Dose: 100 mls/hr Documented by: Ketorolac Tromethamine (Toradol Injection -) 30 mg IVPUSH Q8H-IV [facility] Stop: 11/20/19 17:59 Last Admin: 11/18/19 09:59 Dose: 30 mg Documented by: Levothyroxine Sodium (Synthroid Injection -) 25 mcg IVPUSH DAILY [facility] Last Admin: 11/18/19 10:00 Dose: 25 mcg Documented by: Multivitamins/Minerals/Vitamin C (Tab-A-Vit -) 1 tab PO DAILY [facility] Last Admin: 11/18/19 09:58 Dose: 1 tab Documented by: Nicotine (Nicoderm Patch -) 21 mg TD DAILY [facility] Last Admin: 11/18/19 10:00 Dose: Not Given Documented by: Thiamine HCl (Vitamin B1 -) 100 mg PO DAILY [facility] Last Admin: 11/18/19 10:01 Dose: 100 mg Documented by: - Objective Vital Signs: Vital Signs Temperature 98.2 F 11/18/19 14:00 Pulse Rate 81 11/18/19 14:00 Respiratory Rate 18 11/18/19 14:00 Blood Pressure 104/74 11/18/19 14:00 O2 Sat by Pulse Oximetry (%) 95 03/12/20 09:00 Constitutional: Yes: Calm Eyes: Yes: Conjunctiva Clear HENT: Yes: Atraumatic Neck: Yes: Supple Cardiovascular: Yes: S1, S2 Respiratory: Yes: CTA Bilaterally Gastrointestinal: Yes: Normal Bowel Sounds, Soft Genitourinary: Yes: WNL Extremities: Yes: WNL Edema: No Neurological: Yes: Oriented Psychiatric: Yes: Oriented Labs: CBC, BMP 11/18/19 07:30 11/18/19 07:30 INR, PTT INR 1.22 (0.83-1.09) H 11/11/19 17:18 Problem List - Problems (1) Hypokalemia Code(s): E87.6 - HYPOKALEMIA (2) Hyponatremia Code(s): E87.1 - HYPO-OSMOLALITY AND HYPONATREMIA (3) Abdominal pain Code(s): R10.9 - UNSPECIFIED ABDOMINAL PAIN Qualifiers: Abdominal location: lower abdomen, unspecified Qualified Code(s): R10.30 - Lower abdominal pain, unspecified Assessment/Plan Current Medications Generic Name Dose Route Start Last Admin Trade Name Katia PRN Reason Stop Dose Admin Folic Acid 1 mg 11/18/19 10:00 11/18/19 09:58 Folic Acid - PO 1 mg DAILY [facility] Administration Heparin Sodium (Porcine) 5,000 unit 11/17/19 22:00 11/18/19 09:58 Heparin - SQ 5,000 unit BID [facility] Administration Metronidazole 500 mg in 100 mls @ 100 mls/hr 11/17/19 18:00 11/18/19 09:57 Flagyl 500mg Premixed Ivpb - IVPB 100 mls/hr Q8H-IV [facility] Administration Amino Acids 1,000 mls @ 84 mls/hr 11/17/19 21:30 11/18/19 09:59 Clinimix - IV Not Given Q12H [facility] Piperacillin Sod/Tazobactam 50 mls @ 100 mls/hr 11/17/19 18:00 11/18/19 09:57 Sod 3.375 gm/ Dextrose IVPB 100 mls/hr Q8H-IV [facility] Administration Protocol Ketorolac Tromethamine 30 mg 11/17/19 18:00 11/18/19 09:59 Toradol Injection - IVPUSH 03/14/20 17:59 30 mg Q8H-IV [facility] Administration Levothyroxine Sodium 25 mcg 11/18/19 10:00 11/18/19 10:00 Synthroid Injection - IVPUSH 25 mcg DAILY [facility] Administration Multivitamins/Minerals/Vitamin C 1 tab 11/18/19 10:00 11/18/19 09:58 Tab-A-Vit - PO 1 tab DAILY [facility] Administration Nicotine 21 mg 11/18/19 10:00 11/18/19 10:00 Nicoderm Patch - TD Not Given DAILY [facility] Thiamine HCl 100 mg 11/18/19 10:00 11/18/19 10:01 Vitamin B1 - PO 100 mg DAILY [facility] Administration Impression 1. hyponatremia 2. pericolonic abscess 3. etoh abuse 4. anemia 5. copd 6. microscopic hematuria 7. active smoker 8. hypokalemia Plan - decrease rate of clinimix - cont clears - add salt tabs - monitor lytes - add potassium to clinimix - d/c clinimix once he is tolerating diet - cont abx
[2019-11-18] MEDS: POTASSIUM CHLORIDE 10 MEQ in AMINO ACIDS 4.25%/D5W 1,000 ML IVPB SCH (20:01)
[2019-11-18] MEDS: SODIUM CHLORIDE 1 GM TABLET PO SCH (20:02)
[2019-11-19] MEDS ORDERED: DEXTROSE 5%-WATER - 50 ML IVPB ONE ×3 (00:46→18:04)
[2019-11-19] MEDS ORDERED: PIPERACILLIN/TAZOBACTAM 3.375 GM VIAL IVPB ONE ×3 (00:46→18:03)
[2019-11-19] MEDS: PIPERACILLIN/TAZOB 3.375 GM 3.375 GM in DEXTROSE 5%-WATER - 50 ML IVPB SCH ×3 (01:40→18:28)
[2019-11-19] MEDS: KETOROLAC TROMETHAMINE 30 MG/1 ML VIAL IVPUSH SCH ×4 (05:44→20:27)
[2019-11-19] MEDS: POTASSIUM CHLORIDE 10 MEQ in AMINO ACIDS 4.25%/D5W 1,000 ML IVPB SCH ×2 (05:46→18:21)
[2019-11-19 09:09] LABS: BILIRUBIN,TOTAL 0.4 mg/dL (0.2-1); BLOOD UREA NITROGEN 5.6 mg/dL (7-18); CALCIUM 7.7 mg/dL (8.5-10.1); CREATININE 0.6 mg/dL (0.55-1.3); MAGNESIUM 1.8 mg/dL (1.8-2.4); POTASSIUM 3.3 mmol/L (3.5-5.1); TOT PROT 4.8 g/dl (6.4-8.2)
[2019-11-19] MEDS ORDERED: PT OWN MED DRAWER 7, Y5N ONE (09:11)
[2019-11-19] MEDS: FOLIC ACID 1 MG TABLET (FP) PO SCH (09:38)
[2019-11-19] MEDS: MULTIVITAMINS (DAILY MVI) TABLET (FP) PO SCH (09:38)
[2019-11-19] MEDS: LEVOTHYROXINE SODIUM 100 MCG VIAL IVPUSH SCH (09:39)
[2019-11-19] MEDS: HEPARIN NA (PORCINE) 5,000 UNITS/ML 1ML VIAL SQ SCH ×2 (09:39→21:29)
[2019-11-19] MEDS: NICOTINE 21 MG/24 HOURS TOPICAL PATCH TD SCH (09:39)
[2019-11-19] MEDS: SODIUM CHLORIDE 1 GM TABLET PO SCH (09:39)
[2019-11-19] MEDS: THIAMINE HCL 100 MG TABLET (FP) PO SCH (09:40)
--- NOTE | 2019-11-19 09:56 | PN ---
Progress Note, Physician Chief Complaint: acute perforated diverticulitis with H[place] 1 pericolic abscess History of Present Illness: Has minimal abdominal pain and diarrhea - Current Medication List Current Medications: Active Medications Folic Acid (Folic Acid -) 1 mg PO DAILY [facility] Last Admin: 11/19/19 09:38 Dose: 1 mg Documented by: Heparin Sodium (Porcine) (Heparin -) 5,000 unit SQ BID [facility] Last Admin: 11/19/19 09:39 Dose: 5,000 unit Documented by: Metronidazole (Flagyl 500mg Premixed Ivpb -) 500 mg in 100 mls @ 100 mls/hr IVPB Q8H-IV [facility] Last Admin: 11/19/19 09:38 Dose: 100 mls/hr Documented by: Piperacillin Sod/Tazobactam (Sod 3.375 gm/ Dextrose) 50 mls @ 100 mls/hr IVPB Q8H-IV [facility]; Protocol Last Admin: 11/19/19 09:38 Dose: 100 mls/hr Documented by: Potassium Chloride 10 meq/ (Amino Acids) 1,005 mls @ 65 mls/hr IVPB Q12H [facility] Last Admin: 11/19/19 05:46 Dose: Not Given Documented by: Ketorolac Tromethamine (Toradol Injection -) 30 mg IVPUSH Q8H-IV [facility] Stop: 11/20/19 17:59 Last Admin: 11/19/19 09:41 Dose: 30 mg Documented by: Levothyroxine Sodium (Synthroid Injection -) 25 mcg IVPUSH DAILY [facility] Last Admin: 11/19/19 09:39 Dose: 25 mcg Documented by: Multivitamins/Minerals/Vitamin C (Tab-A-Vit -) 1 tab PO DAILY [facility] Last Admin: 11/19/19 09:38 Dose: 1 tab Documented by: Nicotine (Nicoderm Patch -) 21 mg TD DAILY [facility] Last Admin: 11/19/19 09:39 Dose: Not Given Documented by: Sodium Chloride (Sodium Chloride Tablet -) 1 gm PO DAILY [facility] Last Admin: 11/19/19 09:39 Dose: 1 gm Documented by: Thiamine HCl (Vitamin B1 -) 100 mg PO DAILY [facility] Last Admin: 11/19/19 09:40 Dose: 100 mg Documented by: - Objective Vital Signs: Vital Signs Temperature 98.2 F 11/19/19 06:00 Pulse Rate 75 11/19/19 06:00 Respiratory Rate 18 11/19/19 06:00 Blood Pressure 124/66 11/19/19 06:00 O2 Sat by Pulse Oximetry (%) 95 11/18/19 09:00 Constitutional: Yes: No Distress Neck: Yes: Supple Cardiovascular: Yes: Regular Rate and Rhythm Respiratory: Yes: CTA Bilaterally Gastrointestinal: Yes: Soft, Tenderness (none) Labs: CBC, BMP 11/18/19 07:30 11/19/19 07:42 INR, PTT INR 1.22 (0.83-1.09) H 11/11/19 17:18 Problem List - Problems (1) Diverticulitis of large intestine with complication Assessment/Plan: F/U CT A/P in am may advance to full liquid diet Code(s): K57.32 - DVTRCLI OF LG INT W/O PERFORATION OR ABSCESS W/O BLEEDING
--- NOTE | 2019-11-19 14:58 | PN ---
Progress Note, Physician Chief Complaint: diarrhea History of Present Illness: 54 year old male with PMH etoh abuse, schizophrenia, copd, chronic hyponatremia, anemia, diverticulitis presents to the ED, being treated for diverticulitis, copd, being evaluated by surgery, nephrology. - Current Medication List Current Medications: Active Medications Folic Acid (Folic Acid -) 1 mg PO DAILY [facility] Last Admin: 11/19/19 09:38 Dose: 1 mg Documented by: Heparin Sodium (Porcine) (Heparin -) 5,000 unit SQ BID [facility] Last Admin: 11/19/19 09:39 Dose: 5,000 unit Documented by: Metronidazole (Flagyl 500mg Premixed Ivpb -) 500 mg in 100 mls @ 100 mls/hr IVPB Q8H-IV [facility] Last Admin: 11/19/19 09:38 Dose: 100 mls/hr Documented by: Piperacillin Sod/Tazobactam (Sod 3.375 gm/ Dextrose) 50 mls @ 100 mls/hr IVPB Q8H-IV [facility]; Protocol Last Admin: 11/19/19 09:38 Dose: 100 mls/hr Documented by: Potassium Chloride 10 meq/ (Amino Acids) 1,005 mls @ 65 mls/hr IVPB Q12H [facility] Last Admin: 11/19/19 05:46 Dose: Not Given Documented by: Ketorolac Tromethamine (Toradol Injection -) 30 mg IVPUSH Q8H-IV [facility] Stop: 11/20/19 17:59 Last Admin: 11/19/19 09:41 Dose: 30 mg Documented by: Levothyroxine Sodium (Synthroid Injection -) 25 mcg IVPUSH DAILY [facility] Last Admin: 11/19/19 09:39 Dose: 25 mcg Documented by: Multivitamins/Minerals/Vitamin C (Tab-A-Vit -) 1 tab PO DAILY [facility] Last Admin: 11/19/19 09:38 Dose: 1 tab Documented by: Nicotine (Nicoderm Patch -) 21 mg TD DAILY [facility] Last Admin: 11/19/19 09:39 Dose: Not Given Documented by: Sodium Chloride (Sodium Chloride Tablet -) 1 gm PO DAILY [facility] Last Admin: 11/19/19 09:39 Dose: 1 gm Documented by: Thiamine HCl (Vitamin B1 -) 100 mg PO DAILY [facility] Last Admin: 11/19/19 09:40 Dose: 100 mg Documented by: - Objective Vital Signs: Vital Signs Temperature 98.6 F 11/19/19 10:00 Pulse Rate 78 11/19/19 10:00 Respiratory Rate 18 11/19/19 10:00 Blood Pressure 109/62 11/19/19 10:00 O2 Sat by Pulse Oximetry (%) 95 11/18/19 09:00 Constitutional: Yes: Well Nourished, No Distress Eyes: Yes: Conjunctiva Clear HENT: Yes: Atraumatic, Normocephalic Neck: Yes: Supple Cardiovascular: Yes: Regular Rate and Rhythm Respiratory: Yes: Diminished Gastrointestinal: Yes: Normal Bowel Sounds, Soft Genitourinary: Yes: WNL Musculoskeletal: Yes: WNL, Muscle Weakness Extremities: Yes: WNL Neurological: Yes: Alert Labs: CBC, BMP 11/18/19 07:30 11/19/19 07:42 INR, PTT INR 1.22 (0.83-1.09) H 11/11/19 17:18 Problem List - Problems (1) Diverticulitis of large intestine with complication Assessment/Plan: surgery following upgrade diet to fulls repeat ct abd tomorrow IR as of now cannot go in that deep for abscess. ct to reassess IV antbx per ID Code(s): K57.32 - DVTRCLI OF LG INT W/O PERFORATION OR ABSCESS W/O BLEEDING (2) Hypokalemia Assessment/Plan: replete, on clinimix with k nephrology following Code(s): E87.6 - HYPOKALEMIA (3) Hyponatremia Assessment/Plan: trending up nephrology following salt tabs daily Code(s): E87.1 - HYPO-OSMOLALITY AND HYPONATREMIA (4) Anemia Assessment/Plan: monitor Code(s): D64.9 - ANEMIA, UNSPECIFIED (5) COPD (chronic obstructive pulmonary disease) Assessment/Plan: neb tx Code(s): J44.9 - CHRONIC OBSTRUCTIVE PULMONARY DISEASE, UNSPECIFIED Qualifiers: COPD type: unspecified COPD Qualified Code(s): J44.9 - Chronic obstructive pulmonary disease, unspecified (6) Schizophrenia Assessment/Plan: needs to see psych outpatient Code(s): F20.9 - SCHIZOPHRENIA, UNSPECIFIED (7) Alcohol use disorder Assessment/Plan: consult appreciated no active withdrawal Code(s): [id number] - Assessment/Plan PT EVAL NUTRITION EVAL MAY NEED PICC FOR [employer] ANTBX SOCIAL WORK FOR DISPO HE IS HOMELESS
[2019-11-19] MEDS: ACETAMINOPHEN 325 MG TABLET (FP) PO PRN (16:29)
[2019-11-19] MEDS ORDERED: POTASSIUM CHLORIDE ORAL LIQUID 20 MEQ/15 ML PO ONE (17:46)
--- NOTE | 2019-11-19 17:48 | PN ---
Progress Note, Physician History of Present Illness: Pt seen and examined at bedside. He is awake and alert. He is tolerating clears. He is asking for food. - Current Medication List Current Medications: Active Medications Acetaminophen (Tylenol -) 650 mg PO Q6H PRN PRN Reason: PAIN LEVEL 4 - 6 Last Admin: 11/19/19 16:29 Dose: 650 mg Documented by: Folic Acid (Folic Acid -) 1 mg PO DAILY [facility] Last Admin: 11/19/19 09:38 Dose: 1 mg Documented by: Heparin Sodium (Porcine) (Heparin -) 5,000 unit SQ BID [facility] Last Admin: 11/19/19 09:39 Dose: 5,000 unit Documented by: Metronidazole (Flagyl 500mg Premixed Ivpb -) 500 mg in 100 mls @ 100 mls/hr IVPB Q8H-IV [facility] Last Admin: 11/19/19 09:38 Dose: 100 mls/hr Documented by: Piperacillin Sod/Tazobactam (Sod 3.375 gm/ Dextrose) 50 mls @ 100 mls/hr IVPB Q8H-IV [facility]; Protocol Last Admin: 11/19/19 09:38 Dose: 100 mls/hr Documented by: Potassium Chloride 10 meq/ (Amino Acids) 1,005 mls @ 65 mls/hr IVPB Q12H [facility] Last Admin: 11/19/19 05:46 Dose: Not Given Documented by: Ketorolac Tromethamine (Toradol Injection -) 30 mg IVPUSH Q8H-IV [facility] Stop: 11/20/19 17:59 Last Admin: 11/19/19 09:41 Dose: 30 mg Documented by: Levothyroxine Sodium (Synthroid Injection -) 25 mcg IVPUSH DAILY [facility] Last Admin: 11/19/19 09:39 Dose: 25 mcg Documented by: Multivitamins/Minerals/Vitamin C (Tab-A-Vit -) 1 tab PO DAILY [facility] Last Admin: 11/19/19 09:38 Dose: 1 tab Documented by: Nicotine (Nicoderm Patch -) 21 mg TD DAILY [facility] Last Admin: 11/19/19 09:39 Dose: Not Given Documented by: Potassium Chloride (Potassium Chloride Oral Liquid) 40 meq PO ONCE ONE Stop: 11/19/19 17:47 Sodium Chloride (Sodium Chloride Tablet -) 1 gm PO DAILY [facility] Last Admin: 11/19/19 09:39 Dose: 1 gm Documented by: Thiamine HCl (Vitamin B1 -) 100 mg PO DAILY [facility] Last Admin: 11/19/19 09:40 Dose: 100 mg Documented by: - Objective Vital Signs: Vital Signs Temperature 98.7 F 11/19/19 14:00 Pulse Rate 75 11/19/19 14:00 Respiratory Rate 18 11/19/19 14:00 Blood Pressure 125/66 11/19/19 14:00 O2 Sat by Pulse Oximetry (%) 95 11/18/19 09:00 Constitutional: Yes: Calm Eyes: Yes: Conjunctiva Clear HENT: Yes: Atraumatic Cardiovascular: Yes: S1, S2 Respiratory: Yes: CTA Bilaterally Gastrointestinal: Yes: Soft Musculoskeletal: Yes: WNL Edema: No Neurological: Yes: Oriented Psychiatric: Yes: Oriented Labs: CBC, BMP 11/18/19 07:30 11/19/19 07:42 INR, PTT INR 1.22 (0.83-1.09) H 11/11/19 17:18 Problem List - Problems (1) Hypokalemia Code(s): E87.6 - HYPOKALEMIA (2) Hyponatremia Code(s): E87.1 - HYPO-OSMOLALITY AND HYPONATREMIA (3) Abdominal pain Code(s): R10.9 - UNSPECIFIED ABDOMINAL PAIN Qualifiers: Abdominal location: lower abdomen, unspecified Qualified Code(s): R10.30 - Lower abdominal pain, unspecified Assessment/Plan Current Medications Generic Name Dose Route Start Last Admin Trade Name Freq PRN Reason Stop Dose Admin Acetaminophen 650 mg 11/19/19 15:34 11/19/19 16:29 Tylenol - PO 650 mg Q6H PRN Administration PAIN LEVEL 4 - 6 Folic Acid 1 mg 11/18/19 10:00 11/19/19 09:38 Folic Acid - PO 1 mg DAILY [facility] Administration Heparin Sodium (Porcine) 5,000 unit 11/17/19 22:00 11/19/19 09:39 Heparin - SQ 5,000 unit BID [facility] Administration Metronidazole 500 mg in 100 mls @ 100 mls/hr 11/17/19 18:00 11/19/19 09:38 Flagyl 500mg Premixed Ivpb - IVPB 100 mls/hr Q8H-IV [facility] Administration Piperacillin Sod/Tazobactam 50 mls @ 100 mls/hr 11/17/19 18:00 11/19/19 09:38 Sod 3.375 gm/ Dextrose IVPB 100 mls/hr Q8H-IV [facility] Administration Protocol Potassium Chloride 10 meq/ 1,005 mls @ 65 mls/hr 11/18/19 17:18 11/19/19 05:46 Amino Acids IVPB Not Given Q12H [facility] Ketorolac Tromethamine 30 mg 11/17/19 18:00 11/19/19 09:41 Toradol Injection - IVPUSH 11/20/19 17:59 30 mg Q8H-IV [facility] Administration Levothyroxine Sodium 25 mcg 11/18/19 10:00 11/19/19 09:39 Synthroid Injection - IVPUSH 25 mcg DAILY [facility] Administration Multivitamins/Minerals/Vitamin C 1 tab 11/18/19 10:00 11/19/19 09:38 Tab-A-Vit - PO 1 tab DAILY [facility] Administration Nicotine 21 mg 11/18/19 10:00 11/19/19 09:39 Nicoderm Patch - TD Not Given DAILY [facility] Potassium Chloride 40 meq 11/19/19 17:46 Potassium Chloride Oral Liquid PO 11/19/19 17:47 ONCE ONE Sodium Chloride 1 gm 11/18/19 17:30 11/19/19 09:39 Sodium Chloride Tablet - PO 1 gm DAILY [facility] Administration Thiamine HCl 100 mg 11/18/19 10:00 11/19/19 09:40 Vitamin B1 - PO 100 mg DAILY [facility] Administration Impression 1. hyponatremia 2. pericolonic abscess 3. etoh abuse 4. anemia 5. copd 6. microscopic hematuria 7. active smoker 8. hypokalemia Plan - cont fluids - replace potassium - repeat labs in am - follow ct scan tomorrow - d/c clinimix once he is tolerating diet - cont abx
[2019-11-20] MEDS ORDERED: PIPERACILLIN/TAZOBACTAM 3.375 GM VIAL IVPB ONE ×3 (00:57→17:24)
[2019-11-20] MEDS ORDERED: DEXTROSE 5%-WATER - 50 ML IVPB ONE ×3 (00:57→17:25)
[2019-11-20] MEDS: PIPERACILLIN/TAZOB 3.375 GM 3.375 GM in DEXTROSE 5%-WATER - 50 ML IVPB SCH ×3 (02:30→17:51)
[2019-11-20] MEDS: POTASSIUM CHLORIDE 10 MEQ in AMINO ACIDS 4.25%/D5W 1,000 ML IVPB SCH ×2 (04:18→17:17)
[2019-11-20] MEDS: KETOROLAC TROMETHAMINE 30 MG/1 ML VIAL IVPUSH SCH ×2 (04:19→09:58)
[2019-11-20] MEDS: ACETAMINOPHEN 325 MG TABLET (FP) PO PRN ×2 (06:23→23:50)
[2019-11-20 09:20] LABS: BASO % 0.7 % (0-2.0); EOS % 1.4 % (0-4.5); HEMATOCRIT 35.2 % (35.4-49); HEMOGLOBIN 11.8 GM/dL (11.7-16.9); LYMPH % 16.1 % (8-40); MCH 31.2 pg (25.7-33.7); MCHC 33.6 g/dl (32.0-35.9); MEAN CELL VOLUME 92.8 fl (80-96); MEAN PLT VOLUME 6.9 fl (7.5-11.1); MONO % 9.5 % (3.8-10.2); NEUT % 72.3 % (42.8-82.8); PLATELET COUNT 447 K/MM3 (134-434); RBC 3.79 M/mm3 (4.00-5.60); RDW 14.3 % (11.9-15.9); WHITE BLOOD COUNT 11.2 K/mm3 (4.0-10.0)
[2019-11-20] MEDS ORDERED: PT OWN MED DRAWER 7, Y5N ONE ×2 (09:31→21:23)
[2019-11-20] MEDS: LEVOTHYROXINE SODIUM 100 MCG VIAL IVPUSH SCH (09:52)
[2019-11-20] MEDS: HEPARIN NA (PORCINE) 5,000 UNITS/ML 1ML VIAL SQ SCH ×2 (09:56→22:10)
[2019-11-20 10:00] LABS: ALBUMIN 1.9 g/dl (3.4-5.0); BILIRUBIN,TOTAL 0.3 mg/dL (0.2-1); BLOOD UREA NITROGEN 4.8 mg/dL (7-18); CREATININE 0.6 mg/dL (0.55-1.3); MAGNESIUM 1.7 mg/dL (1.8-2.4); POTASSIUM 3.8 mmol/L (3.5-5.1); TOT PROT 4.6 g/dl (6.4-8.2)
[2019-11-20] MEDS: NICOTINE 21 MG/24 HOURS TOPICAL PATCH TD SCH (10:03)
--- NOTE | 2019-11-20 10:09 | PN ---
Progress Note, Physician Chief Complaint: Acute perforated diverticulitis with Hinchey 1 pericolic abscess Hyponatremia Etoh abuse Anemia COPD Hematuria Hypokalemia History of Present Illness: NAD Awaiting CTAP with contrast Surgery on board c/o BL foot [id number] helps Diarrhea this AM x 1-non bloody - Current Medication List Current Medications: Active Medications Acetaminophen (Tylenol -) 650 mg PO Q6H PRN PRN Reason: PAIN LEVEL 4 - 6 Last Admin: 11/20/19 06:23 Dose: 650 mg Documented by: Folic Acid (Folic Acid -) 1 mg PO DAILY [facility] Last Admin: 11/19/19 09:38 Dose: 1 mg Documented by: Heparin Sodium (Porcine) (Heparin -) 5,000 unit SQ BID [facility] Last Admin: 11/20/19 09:56 Dose: 5,000 unit Documented by: Metronidazole (Flagyl 500mg Premixed Ivpb -) 500 mg in 100 mls @ 100 mls/hr IVPB Q8H-IV [facility] Last Admin: 11/20/19 01:04 Dose: 100 mls/hr Documented by: Piperacillin Sod/Tazobactam (Sod 3.375 gm/ Dextrose) 50 mls @ 100 mls/hr IVPB Q8H-IV [facility]; Protocol Last Admin: 11/20/19 10:01 Dose: 100 mls/hr Documented by: Potassium Chloride 10 meq/ (Amino Acids) 1,005 mls @ 65 mls/hr IVPB Q12H [facility] Last Admin: 11/20/19 04:18 Dose: 65 mls/hr Documented by: Ketorolac Tromethamine (Toradol Injection -) 30 mg IVPUSH Q8H-IV [facility] Stop: 11/20/19 17:59 Last Admin: 11/20/19 09:58 Dose: 30 mg Documented by: Levothyroxine Sodium (Synthroid Injection -) 25 mcg IVPUSH DAILY [facility] Last Admin: 11/20/19 09:52 Dose: 25 mcg Documented by: Multivitamins/Minerals/Vitamin C (Tab-A-Vit -) 1 tab PO DAILY [facility] Last Admin: 11/19/19 09:38 Dose: 1 tab Documented by: Nicotine (Nicoderm Patch -) 21 mg TD DAILY [facility] Last Admin: 11/20/19 10:03 Dose: Not Given Documented by: Sodium Chloride (Sodium Chloride Tablet -) 1 gm PO DAILY [facility] Last Admin: 11/19/19 09:39 Dose: 1 gm Documented by: Thiamine HCl (Vitamin B1 -) 100 mg PO DAILY [facility] Last Admin: 11/19/19 09:40 Dose: 100 mg Documented by: - Objective Vital Signs: Vital Signs Temperature 98.1 F 11/20/19 09:35 Pulse Rate 71 11/20/19 09:35 Respiratory Rate 20 11/20/19 09:35 Blood Pressure 122/72 11/20/19 09:35 O2 Sat by Pulse Oximetry (%) 95 11/18/19 09:00 Constitutional: Yes: Well Nourished, No Distress, Calm Cardiovascular: Yes: Regular Rate and Rhythm Respiratory: Yes: Regular, CTA Bilaterally Gastrointestinal: Yes: Normal Bowel Sounds, Soft Genitourinary: Yes: WNL Musculoskeletal: Yes: WNL Extremities: Yes: WNL Edema: No Peripheral Pulses WNL: Yes Neurological: Yes: Alert, Oriented Psychiatric: Yes: Alert, Oriented Labs: CBC, BMP 11/20/19 08:55 11/20/19 08:55 INR, PTT INR 1.22 (0.83-1.09) H 11/11/19 17:18 Assessment/Plan (1) Diverticulitis of large intestine with complication Assessment/Plan: CTAP:11/14/19:Interval worsening of previously described mid sigmoid colon diverticulitis/colitis now involving the rest of the distal sigmoid colon. There is interval worsening in the degree of wall thickening at the mid sigmoid colon resulting in partial to almost complete obstruction as well as interval increase in size of previously visualized adjacent collection/abscess. No extraluminal air is identified.. Interval small amount of free fluid in the right upper quadrant and paracolic gutter. Mild thickening of the urinary bladder wall likely due to partial distention or surrounding inflammatory changes. Correlate clinically to rule out cystitis. A small right inguinal hernia containing a small bowel loop in its upper portion is again seen surgery following -Full liquid diet -Await repeat CTAP with contrast -Surgery on board -IV abx -ID consult Code(s): K57.32 - DVTRCLI OF LG INT W/O PERFORATION OR ABSCESS W/O BLEEDING (2) Hypokalemia Assessment/Plan: -Resolved -Continue Clinimix -Nephrology on baord -monitor trend Code(s): E87.6 - HYPOKALEMIA (3) Hyponatremia Assessment/Plan: -stable -Nephrology on board -NACl tabs Code(s): E87.1 - HYPO-OSMOLALITY AND HYPONATREMIA (4) Anemia Assessment/Plan: -stable Code(s): D64.9 - ANEMIA, UNSPECIFIED (5) COPD (chronic obstructive pulmonary disease) Assessment/Plan: -Stable -bronchodilators Code(s): J44.9 - CHRONIC OBSTRUCTIVE PULMONARY DISEASE, UNSPECIFIED Qualifiers: COPD type: unspecified COPD Qualified Code(s): J44.9 - Chronic obstructive pulmonary disease, unspecified
[2019-11-20] MEDS: MULTIVITAMINS (DAILY MVI) TABLET (FP) PO SCH (14:35)
[2019-11-20] MEDS: FOLIC ACID 1 MG TABLET (FP) PO SCH (14:35)
[2019-11-20] MEDS: THIAMINE HCL 100 MG TABLET (FP) PO SCH (14:36)
[2019-11-20] MEDS: SODIUM CHLORIDE 1 GM TABLET PO SCH (14:36)
--- NOTE | 2019-11-20 20:59 | PN ---
Progress Note (short form) - Note Progress Note: Impression 1. hyponatremia 2. pericolonic abscess 3. etoh abuse 4. anemia 5. copd 6. microscopic hematuria 7. active smoker 8. hypokalemia Current Medications Acetaminophen (Tylenol -) 650 mg PO Q6H PRN PRN Reason: PAIN LEVEL 4 - 6 Last Admin: 11/20/19 06:23 Dose: 650 mg Documented by: Folic Acid (Folic Acid -) 1 mg PO DAILY [facility] Last Admin: 11/20/19 14:35 Dose: 1 mg Documented by: Heparin Sodium (Porcine) (Heparin -) 5,000 unit SQ BID [facility] Last Admin: 11/20/19 09:56 Dose: 5,000 unit Documented by: Metronidazole (Flagyl 500mg Premixed Ivpb -) 500 mg in 100 mls @ 100 mls/hr IVPB Q8H-IV [facility] Last Admin: 11/20/19 18:44 Dose: 100 mls/hr Documented by: Piperacillin Sod/Tazobactam (Sod 3.375 gm/ Dextrose) 50 mls @ 100 mls/hr IVPB Q8H-IV [facility]; Protocol Last Admin: 11/20/19 17:51 Dose: 100 mls/hr Documented by: Potassium Chloride 10 meq/ (Amino Acids) 1,005 mls @ 65 mls/hr IVPB Q12H [facility] Last Admin: 11/20/19 17:17 Dose: 65 mls/hr Documented by: Levothyroxine Sodium (Synthroid Injection -) 25 mcg IVPUSH DAILY [facility] Last Admin: 11/20/19 09:52 Dose: 25 mcg Documented by: Multivitamins/Minerals/Vitamin C (Tab-A-Vit -) 1 tab PO DAILY [facility] Last Admin: 11/20/19 14:35 Dose: 1 tab Documented by: Nicotine (Nicoderm Patch -) 21 mg TD DAILY [facility] Last Admin: 11/20/19 10:03 Dose: Not Given Documented by: Sodium Chloride (Sodium Chloride Tablet -) 1 gm PO DAILY [facility] Last Admin: 11/20/19 14:36 Dose: 1 gm Documented by: Thiamine HCl (Vitamin B1 -) 100 mg PO DAILY [facility] Last Admin: 11/20/19 14:36 Dose: 100 mg Documented by: Last Vital Signs Temp Pulse Resp BP Pulse Ox 97.6 F 59 L 20 142/96 96 11/20/19 18:04 11/20/19 18:04 11/20/19 18:04 11/20/19 18:04 11/20/19 10:00 CBC, BMP 11/20/19 08:55 11/20/19 08:55 Hyponatremia anemia Plan - cont fluids - replace potassium - repeat labs in am - follow ct scan tomorrow - d/c clinimix once he is tolerating diet - cont abx
[2019-11-21] MEDS ORDERED: PIPERACILLIN/TAZOBACTAM 3.375 GM VIAL IVPB ONE ×3 (01:39→17:33)
[2019-11-21] MEDS ORDERED: DEXTROSE 5%-WATER - 50 ML IVPB ONE ×3 (01:40→17:33)
[2019-11-21] MEDS: PIPERACILLIN/TAZOB 3.375 GM 3.375 GM in DEXTROSE 5%-WATER - 50 ML IVPB SCH ×3 (02:24→17:43)
[2019-11-21] MEDS: POTASSIUM CHLORIDE 10 MEQ in AMINO ACIDS 4.25%/D5W 1,000 ML IVPB SCH (07:56)
[2019-11-21] MEDS ORDERED: PT OWN MED DRAWER 7, Y5N ONE (09:40)
[2019-11-21] MEDS: SODIUM CHLORIDE 1 GM TABLET PO SCH (10:07)
[2019-11-21] MEDS: ACETAMINOPHEN 325 MG TABLET (FP) PO PRN (10:07)
[2019-11-21] MEDS: LEVOTHYROXINE SODIUM 100 MCG VIAL IVPUSH SCH (10:07)
[2019-11-21] MEDS: HEPARIN NA (PORCINE) 5,000 UNITS/ML 1ML VIAL SQ SCH (10:09)
[2019-11-21] MEDS: FOLIC ACID 1 MG TABLET (FP) PO SCH (10:10)
[2019-11-21] MEDS: MULTIVITAMINS (DAILY MVI) TABLET (FP) PO SCH (10:10)
[2019-11-21] MEDS: NICOTINE 21 MG/24 HOURS TOPICAL PATCH TD SCH (10:11)
[2019-11-21] MEDS: THIAMINE HCL 100 MG TABLET (FP) PO SCH (10:11)
--- NOTE | 2019-11-21 12:27 | PN ---
Progress Note, Physician Chief Complaint: Acute perforated diverticulitis with Hinchey 1 pericolic abscess Hyponatremia Etoh abuse Anemia COPD Hematuria Hypokalemia History of Present Illness: NAD CTAP with contrast reviewed Surgery on board c/o BL foot [id number] helps Loose stool this AM x 1-non bloody - Current Medication List Current Medications: Active Medications Acetaminophen (Tylenol -) 650 mg PO Q6H PRN PRN Reason: PAIN LEVEL 4 - 6 Last Admin: 11/21/19 10:07 Dose: 650 mg Documented by: Folic Acid (Folic Acid -) 1 mg PO DAILY [facility] Last Admin: 11/21/19 10:10 Dose: 1 mg Documented by: Heparin Sodium (Porcine) (Heparin -) 5,000 unit SQ BID [facility] Last Admin: 11/21/19 10:09 Dose: 5,000 unit Documented by: Metronidazole (Flagyl 500mg Premixed Ivpb -) 500 mg in 100 mls @ 100 mls/hr IVPB Q8H-IV [facility] Last Admin: 11/21/19 11:22 Dose: 100 mls/hr Documented by: Piperacillin Sod/Tazobactam (Sod 3.375 gm/ Dextrose) 50 mls @ 100 mls/hr IVPB Q 8H-IV [facility]; Protocol Last Admin: 11/21/19 10:09 Dose: 100 mls/hr Documented by: Potassium Chloride 10 meq/ (Amino Acids) 1,005 mls @ 65 mls/hr IVPB Q12H [facility] Last Admin: 11/21/19 07:56 Dose: Not Given Documented by: Levothyroxine Sodium (Synthroid Injection -) 25 mcg IVPUSH DAILY [facility] Last Admin: 11/21/19 10:07 Dose: 25 mcg Documented by: Multivitamins/Minerals/Vitamin C (Tab-A-Vit -) 1 tab PO DAILY [facility] Last Admin: 11/21/19 10:10 Dose: 1 tab Documented by: Nicotine (Nicoderm Patch -) 21 mg TD DAILY [facility] Last Admin: 11/21/19 10:11 Dose: Not Given Documented by: Sodium Chloride (Sodium Chloride Tablet -) 1 gm PO DAILY [facility] Last Admin: 11/21/19 10:07 Dose: 1 gm Documented by: Thiamine HCl (Vitamin B1 -) 100 mg PO DAILY [facility] Last Admin: 11/21/19 10:11 Dose: 100 mg Documented by: - Objective Vital Signs: Vital Signs Temperature 98.5 F 11/21/19 10:00 Pulse Rate 75 11/21/19 10:00 Respiratory Rate 20 11/21/19 10:00 Blood Pressure 117/68 11/21/19 10:00 O2 Sat by Pulse Oximetry (%) 100 11/20/19 21:00 Constitutional: Yes: No Distress, Calm, Thin Cardiovascular: Yes: Regular Rate and Rhythm Respiratory: Yes: Regular, CTA Bilaterally Gastrointestinal: Yes: Normal Bowel Sounds, Soft Genitourinary: Yes: WNL Musculoskeletal: Yes: WNL Extremities: Yes: WNL Edema: No Peripheral Pulses WNL: Yes Neurological: Yes: Alert, Oriented Psychiatric: Yes: Alert, Oriented Labs: CBC, BMP 11/20/19 08:55 11/20/19 08:55 INR, PTT INR 1.22 (0.83-1.09) H 11/11/19 17:18 Problem List - Problems (1) Neuropathic pain of both feet Assessment/Plan: -likely 2/2 to chronic alcohol use -Also low in B12 -Cyanocobalamine 1g IM daily until d/c then transition to 2500 mcg SL daily Problems reviewed: Yes Code(s): G57.93 - UNSPECIFIED MONONEUROPATHY OF BILATERAL LOWER LIMBS Assessment/Plan (1) Diverticulitis of large intestine with complication Assessment/Plan: -CTAP:11/14/19:Interval worsening of previously described mid sigmoid colon diverticulitis/colitis now involving the rest of the distal sigmoid colon. There is interval worsening in the degree of wall thickening at the mid sigmoid colon resulting in partial to almost complete obstruction as well as interval increase in size of previously visualized adjacent collection/abscess. No extraluminal air is identified.. Interval small amount of free fluid in the right upper quadrant and paracolic gutter. Mild thickening of the urinary bladder wall likely due to partial distention or surrounding inflammatory changes. Correlate clinically to rule out cystitis. A small right inguinal hernia containing a small bowel loop in its upper portion is again seen surgery following -Full liquid diet--->advance to soft diet -Repeat CTAP with contrast 11/20/19:Since a prior study of 11/26/2019, a perisigmoid diverticular abscess has somewhat decreased in size now measuring approximately 2.9 x 2.5 x 1.9 cm. The degree of sigmoid diverticulitis also appears somewhat improved. No new fluid collections have developed within the abdomen or pelvis. There is also been improvement in small bilateral pleural effusions with basilar consolidation/atelectasis. No significant fluid is now noted. Mild atelectatic changes remain bilaterally. -Surgery on board -Continue IV abx -ID consult appreciated Code(s): K57.32 - DVTRCLI OF LG INT W/O PERFORATION OR ABSCESS W/O BLEEDING (2) Hypokalemia Assessment/Plan: -Resolved -D/C Clinimix -Nephrology on board -monitor trend Code(s): E87.6 - HYPOKALEMIA (3) Hyponatremia Assessment/Plan: -stable -Nephrology on board -NACl tabs Code(s): E87.1 - HYPO-OSMOLALITY AND HYPONATREMIA (4) Anemia Assessment/Plan: -stable Code(s): D64.9 - ANEMIA, UNSPECIFIED (5) COPD (chronic obstructive pulmonary disease) Assessment/Plan: -Stable -bronchodilators Code(s): J44.9 - CHRONIC OBSTRUCTIVE PULMONARY DISEASE, UNSPECIFIED Qualifiers: COPD type: unspecified COPD Qualified Code(s): J44.9 - Chronic obstructive pulmonary disease, unspecified
--- NOTE | 2019-11-21 13:03 | PN ---
Progress Note, Physician Chief Complaint: acute perforated diverticulitis with Hinchey 1 pericolic abscess History of Present Illness: Has minimal abdominal pain and diarrhea tolerating full liquids - Current Medication List Current Medications: Active Medications Acetaminophen (Tylenol -) 650 mg PO Q6H PRN PRN Reason: PAIN LEVEL 4 - 6 Last Admin: 11/21/19 10:07 Dose: 650 mg Documented by: Cyanocobalamin (Vitamin B12 Injection -) 1,000 mcg IM DAILY [facility] Folic Acid (Folic Acid -) 1 mg PO DAILY [facility] Last Admin: 11/21/19 10:10 Dose: 1 mg Documented by: Heparin Sodium (Porcine) (Heparin -) 5,000 unit SQ BID [facility] Last Admin: 11/21/19 10:09 Dose: 5,000 unit Documented by: Metronidazole (Flagyl 500mg Premixed Ivpb -) 500 mg in 100 mls @ 100 mls/hr IVPB Q8H-IV [facility] Last Admin: 11/21/19 11:22 Dose: 100 mls/hr Documented by: Piperacillin Sod/Tazobactam (Sod 3.375 gm/ Dextrose) 50 mls @ 100 mls/hr IVPB Q8H-IV [facility]; Protocol Last Admin: 11/21/19 10:09 Dose: 100 mls/hr Documented by: Levothyroxine Sodium (Synthroid Injection -) 25 mcg IVPUSH DAILY [facility] Last Admin: 11/21/19 10:07 Dose: 25 mcg Documented by: Multivitamins/Minerals/Vitamin C (Tab-A-Vit -) 1 tab PO DAILY [facility] Last Admin: 11/21/19 10:10 Dose: 1 tab Documented by: Nicotine (Nicoderm Patch -) 21 mg TD DAILY [facility] Last Admin: 11/21/19 10:11 Dose: Not Given Documented by: Sodium Chloride (Sodium Chloride Tablet -) 1 gm PO DAILY [facility] Last Admin: 11/21/19 10:07 Dose: 1 gm Documented by: Thiamine HCl (Vitamin B1 -) 100 mg PO DAILY [facility] Last Admin: 11/21/19 10:11 Dose: 100 mg Documented by: - Objective Vital Signs: Vital Signs Temperature 98.5 F 11/21/19 10:00 Pulse Rate 75 11/21/19 10:00 Respiratory Rate 20 11/21/19 10:00 Blood Pressure 117/68 11/21/19 10:00 O2 Sat by Pulse Oximetry (%) 100 11/20/19 21:00 Constitutional: Yes: No Distress Gastrointestinal: Yes: Soft, Tenderness (none) Labs: CBC, BMP 11/20/19 08:55 11/20/19 08:55 INR, PTT INR 1.22 (0.83-1.09) H 11/11/19 17:18 - ....Imaging Cat Scan: Report Reviewed, Image Reviewed (decrease size of pericolic abscess) Problem List - Problems (1) Diverticulitis of large intestine with complication Assessment/Plan: clinical and radiologic improvement of diverticulitis trial of advancing to soft diet Code(s): K57.32 - DVTRCLI OF LG INT W/O PERFORATION OR ABSCESS W/O BLEEDING
[2019-11-21 13:26] LABS: BASO % 0.8 % (0-2.0); HEMATOCRIT 33.9 % (35.4-49); HEMOGLOBIN 11.6 GM/dL (11.7-16.9); LYMPH % 19.8 % (8-40); MCH 31.5 pg (25.7-33.7); MCHC 34.2 g/dl (32.0-35.9); MEAN CELL VOLUME 92.2 fl (80-96); MEAN PLT VOLUME 7.1 fl (7.5-11.1); MONO % 9.4 % (3.8-10.2); PLATELET COUNT 525 K/MM3 (134-434); RBC 3.68 M/mm3 (4.00-5.60); RDW 14.3 % (11.9-15.9); WHITE BLOOD COUNT 10.5 K/mm3 (4.0-10.0)
[2019-11-21 14:03] LABS: BILIRUBIN,TOTAL 0.3 mg/dL (0.2-1); BLOOD UREA NITROGEN 6.6 mg/dL (7-18); CALCIUM 7.9 mg/dL (8.5-10.1); CREATININE 0.7 mg/dL (0.55-1.3); POTASSIUM 3.4 mmol/L (3.5-5.1); TOT PROT 4.7 g/dl (6.4-8.2)
[2019-11-21] MEDS: CYANOCOBALAMIN (VITAMIN B-12) 1000 MCG/1 ML VIAL IM SCH (14:19)
--- NOTE | 2019-11-21 21:50 | PN ---
Progress Note (short form) - Note Progress Note: Impression 1. hyponatremia 2. pericolonic abscess 3. etoh abuse 4. anemia 5. copd 6. microscopic hematuria 7. active smoker 8. hypokalemia Current Medications Acetaminophen (Tylenol -) 650 mg PO Q6H PRN PRN Reason: PAIN LEVEL 4 - 6 Last Admin: 11/21/19 10:07 Dose: 650 mg Documented by: Cyanocobalamin (Vitamin B12 Injection -) 1,000 mcg IM DAILY [facility] Last Admin: 11/21/19 14:19 Dose: 1,000 mcg Documented by: Folic Acid (Folic Acid -) 1 mg PO DAILY [facility] Last Admin: 11/21/19 10:10 Dose: 1 mg Documented by: Heparin Sodium (Porcine) (Heparin -) 5,000 unit SQ BID [facility] Last Admin: 11/21/19 10:09 Dose: 5,000 unit Documented by: Metronidazole (Flagyl 500mg Premixed Ivpb -) 500 mg in 100 mls @ 100 mls/hr IVPB Q8H-IV [facility] Last Admin: 11/21/19 18:42 Dose: 100 mls/hr Documented by: Piperacillin Sod/Tazobactam (Sod 3.375 gm/ Dextrose) 50 mls @ 100 mls/hr IVPB Q8H-IV [facility]; Protocol Last Admin: 11/21/19 17:43 Dose: 100 mls/hr Documented by: Levothyroxine Sodium (Synthroid Injection -) 25 mcg IVPUSH DAILY [facility] Last Admin: 11/21/19 10:07 Dose: 25 mcg Documented by: Multivitamins/Minerals/Vitamin C (Tab-A-Vit -) 1 tab PO DAILY [facility] Last Admin: 11/21/19 10:10 Dose: 1 tab Documented by: Nicotine (Nicoderm Patch -) 21 mg TD DAILY [facility] Last Admin: 11/21/19 10:11 Dose: Not Given Documented by: Sodium Chloride (Sodium Chloride Tablet -) 1 gm PO DAILY [facility] Last Admin: 11/21/19 10:07 Dose: 1 gm Documented by: Thiamine HCl (Vitamin B1 -) 100 mg PO DAILY [facility] Last Admin: 11/21/19 10:11 Dose: 100 mg Documented by: Last Vital Signs Temp Pulse Resp BP Pulse Ox 98.3 F 76 20 117/68 100 11/21/19 18:00 11/21/19 18:00 11/21/19 18:00 11/21/19 18:00 11/21/19 10:05 CBC, BMP 11/21/19 12:50 11/21/19 12:50 CBC, BMP 11/20/19 08:55 11/20/19 08:55 Hyponatremia anemia Plan - cont fluids - replace potassium - repeat labs in am - follow ct scan tomorrow - d/c clinimix once he is tolerating diet - cont abx
[2019-11-22] MEDS: HEPARIN NA (PORCINE) 5,000 UNITS/ML 1ML VIAL SQ SCH ×3 (00:08→22:56)
[2019-11-22] MEDS ORDERED: PIPERACILLIN/TAZOBACTAM 3.375 GM VIAL IVPB ONE ×3 (01:51→17:49)
[2019-11-22] MEDS ORDERED: DEXTROSE 5%-WATER - 50 ML IVPB ONE ×3 (01:51→17:50)
[2019-11-22] MEDS: PIPERACILLIN/TAZOB 3.375 GM 3.375 GM in DEXTROSE 5%-WATER - 50 ML IVPB SCH ×3 (01:59→18:03)
[2019-11-22] MEDS: ACETAMINOPHEN 325 MG TABLET (FP) PO PRN ×3 (02:59→22:55)
[2019-11-22 07:56] LABS: BASO % 1.3 % (0-2.0); EOS % 2.8 % (0-4.5); HEMATOCRIT 32.3 % (35.4-49); HEMOGLOBIN 11.2 GM/dL (11.7-16.9); LYMPH % 22.6 % (8-40); MCH 31.8 pg (25.7-33.7); MCHC 34.6 g/dl (32.0-35.9); MEAN PLT VOLUME 6.8 fl (7.5-11.1); MONO % 11.2 % (3.8-10.2); NEUT % 62.1 % (42.8-82.8); PLATELET COUNT 527 K/MM3 (134-434); RBC 3.51 M/mm3 (4.00-5.60); RDW 14.4 % (11.9-15.9); WHITE BLOOD COUNT 10.5 K/mm3 (4.0-10.0)
[2019-11-22 08:18] LABS: ALBUMIN 1.9 g/dl (3.4-5.0); BILIRUBIN,TOTAL 0.4 mg/dL (0.2-1); BLOOD UREA NITROGEN 5.3 mg/dL (7-18); CALCIUM 7.8 mg/dL (8.5-10.1); CREATININE 0.7 mg/dL (0.55-1.3); POTASSIUM 3.5 mmol/L (3.5-5.1); TOT PROT 4.6 g/dl (6.4-8.2)
[2019-11-22] MEDS ORDERED: PT OWN MED DRAWER 7, Y5N ONE (10:05)
[2019-11-22] MEDS: LEVOTHYROXINE SODIUM 100 MCG VIAL IVPUSH SCH (10:29)
[2019-11-22] MEDS: FOLIC ACID 1 MG TABLET (FP) PO SCH (10:31)
[2019-11-22] MEDS: MULTIVITAMINS (DAILY MVI) TABLET (FP) PO SCH (10:31)
[2019-11-22] MEDS: THIAMINE HCL 100 MG TABLET (FP) PO SCH (10:32)
[2019-11-22] MEDS: NICOTINE 21 MG/24 HOURS TOPICAL PATCH TD SCH (10:32)
[2019-11-22] MEDS: SODIUM CHLORIDE 1 GM TABLET PO SCH (10:32)
[2019-11-22] MEDS: CYANOCOBALAMIN (VITAMIN B-12) 1000 MCG/1 ML VIAL IM SCH (10:35)
--- NOTE | 2019-11-22 10:57 | PN ---
Progress Note, Physician Chief Complaint: Alcohol Abuse Divertulosis Pericolonic Abscess History of Present Illness: Previous notes and events reviewed awake and alert NAD patient states abdominal pain is better complain of nausea denies chest pain or SOB - Current Medication List Current Medications: Active Medications Acetaminophen (Tylenol -) 650 mg PO Q6H PRN PRN Reason: PAIN LEVEL 4 - 6 Last Admin: 11/22/19 02:59 Dose: 650 mg Documented by: Cyanocobalamin (Vitamin B12 Injection -) 1,000 mcg IM DAILY [facility] Last Admin: 11/22/19 10:35 Dose: 1,000 mcg Documented by: Folic Acid (Folic Acid -) 1 mg PO DAILY [facility] Last Admin: 11/22/19 10:31 Dose: 1 mg Documented by: Heparin Sodium (Porcine) (Heparin -) 5,000 unit SQ BID [facility] Last Admin: 11/22/19 10:32 Dose: 5,000 unit Documented by: Metronidazole (Flagyl 500mg Premixed Ivpb -) 500 mg in 100 mls @ 100 mls/hr IVPB Q8H-IV [facility] Last Admin: 11/22/19 02:57 Dose: 100 mls/hr Documented by: Piperacillin Sod/Tazobactam (Sod 3.375 gm/ Dextrose) 50 mls @ 100 mls/hr IVPB Q8H-IV [facility]; Protocol Last Admin: 11/22/19 10:35 Dose: 100 mls/hr Documented by: Levothyroxine Sodium (Synthroid Injection -) 25 mcg IVPUSH DAILY [facility] Last Admin: 11/22/19 10:29 Dose: 25 mcg Documented by: Multivitamins/Minerals/Vitamin C (Tab-A-Vit -) 1 tab PO DAILY [facility] Last Admin: 11/22/19 10:31 Dose: 1 tab Documented by: Nicotine (Nicoderm Patch -) 21 mg TD DAILY [facility] Last Admin: 11/22/19 10:32 Dose: Not Given Documented by: Sodium Chloride (Sodium Chloride Tablet -) 1 gm PO DAILY [facility] Last Admin: 11/22/19 10:32 Dose: 1 gm Documented by: Thiamine HCl (Vitamin B1 -) 100 mg PO DAILY [facility] Last Admin: 11/22/19 10:32 Dose: 100 mg Documented by: - Objective Vital Signs: Vital Signs Temperature 98.1 F 11/22/19 10:24 Pulse Rate 76 11/22/19 10:24 Respiratory Rate 20 03/16/20 10:24 Blood Pressure 95/59 L 11/22/19 10:24 O2 Sat by Pulse Oximetry (%) 99 11/21/19 21:00 Constitutional: Yes: No Distress, Calm Eyes: Yes: Conjunctiva Clear HENT: Yes: Atraumatic Cardiovascular: Yes: Regular Rate and Rhythm Respiratory: Yes: Regular, Diminished Gastrointestinal: Yes: Normal Bowel Sounds, Soft Musculoskeletal: Yes: Muscle Weakness Extremities: Yes: WNL Edema: No Neurological: Yes: Alert, Oriented Psychiatric: Yes: Alert, Oriented Labs: CBC, BMP 11/22/19 07:30 11/22/19 07:30 INR, PTT INR 1.22 (0.83-1.09) H 11/11/19 17:18 Problem List - Problems (1) Diverticulitis of large intestine with complication Assessment/Plan: Surgery on board repeat CTAP shows interval worsening of previously described mid sigmoid colon diverticulitis/colitis now involving the rest of the distal sigmoid colon, interval worsening in the degree of wall thickening at the mid right sigmoid colon resulting in partial to almost complete obstruction as well as interval increase in size (4x3.2cm) of previously visualized adjacent collection/abscess, interval small amount of free fluid in RUQ and paracolic gutter, mild thickening of the urinary bladder wall likely due to partial distention or surrounding inflammatory changes, small right inguinal hernia containing a small bowel loop in its upper portion due to severe COPD patient is not a candidate for surgery at present~IR consult leukocytosis Flagyl, Zosyn BC neg CTAP from 11/20/19 shows improvement in sigmoid diverticulitis with pericolonic abscess Code(s): K57.32 - DVTRCLI OF LG INT W/O PERFORATION OR ABSCESS W/O BLEEDING (2) Hypokalemia Assessment/Plan: resolved K 3.5 monitor electrolyte daily and replete as needed Code(s): E87.6 - HYPOKALEMIA (3) Hyponatremia Assessment/Plan: resolving Na 137 Sodium Chloride tabs monitor electrolyte daily Code(s): E87.1 - HYPO-OSMOLALITY AND HYPONATREMIA (4) Abdominal pain Assessment/Plan: GI and Surgery on board repeat CTAP shows interval worsening of previously described mid sigmoid colon diverticulitis/colitis now involving the rest of the distal sigmoid colon, interval worsening in the degree of wall thickening at the mid right sigmoid colon resulting in partial to almost complete obstruction as well as interval increase in size (4x3.2cm) of previously visualized adjacent collection/abscess, interval small amount of free fluid in RUQ and paracolic gutter, mild thickening of the urinary bladder wall likely due to partial distention or surrounding inflammatory changes, small right inguinal hernia containing a small bowel loop in its upper portion due to severe COPD patient is not a candidate for surgery at present~IR consult leukocytosis Flagyl, Zosyn BC neg CTAP from 11/20/19 shows improvement in sigmoid diverticulitis with pericolonic abscess Code(s): R10.9 - UNSPECIFIED ABDOMINAL PAIN Qualifiers: Abdominal location: lower abdomen, unspecified Qualified Code(s): R10.30 - Lower abdominal pain, unspecified (5) Alcohol dependence Assessment/Plan: [employer] 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 Dr Pastor consult Thiamine, MVI, Folic Acid seizure precaution Code(s): F10.20 - ALCOHOL DEPENDENCE, UNCOMPLICATED (6) COPD (chronic obstructive pulmonary disease) Assessment/Plan: Pulm on board O2 via [place] keep SpO2 >90% CTAP shows interval bibasil atelectatic changes and consolidation, right more t mcclain left as well as small bilateral pleural effusion, right more than left, moderate COPD changes involving included portion of JUAN and RML Code(s): J44.9 - CHRONIC OBSTRUCTIVE PULMONARY DISEASE, UNSPECIFIED Qualifiers: COPD type: unspecified COPD Qualified Code(s): J44.9 - Chronic obstructive pulmonary disease, unspecified (7) Hypothyroidism, unspecified Assessment/Plan: Levothyroxine Code(s): E03.9 - HYPOTHYROIDISM, UNSPECIFIED Qualifiers: 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
--- NOTE | 2019-11-22 17:48 | PN ---
Progress Note, Physician Chief Complaint: acute perforated diverticulitis with Hinchey 1 pericolic abscess History of Present Illness: Tolerating diet with only mild discomfort - Current Medication List Current Medications: Active Medications Acetaminophen (Tylenol -) 650 mg PO Q6H PRN PRN Reason: PAIN LEVEL 4 - 6 Last Admin: 11/22/19 14:50 Dose: 650 mg Documented by: Cyanocobalamin (Vitamin B12 Injection -) 1,000 mcg IM DAILY [facility] Last Admin: 11/22/19 10:35 Dose: 1,000 mcg Documented by: Folic Acid (Folic Acid -) 1 mg PO DAILY [facility] Last Admin: 11/22/19 10:31 Dose: 1 mg Documented by: Heparin Sodium (Porcine) (Heparin -) 5,000 unit SQ BID [facility] Last Admin: 11/22/19 10:32 Dose: 5,000 unit Documented by: Metronidazole (Flagyl 500mg Premixed Ivpb -) 500 mg in 100 mls @ 100 mls/hr IVPB Q8H-IV [facility] Last Admin: 11/22/19 13:00 Dose: 100 mls/hr Documented by: Piperacillin Sod/Tazobactam (Sod 3.375 gm/ Dextrose) 50 mls @ 100 mls/hr IVPB Q8H-IV [facility]; Protocol Last Admin: 11/22/19 10:35 Dose: 100 mls/hr Documented by: Levothyroxine Sodium (Synthroid Injection -) 25 mcg IVPUSH DAILY [facility] Last Admin: 11/22/19 10:29 Dose: 25 mcg Documented by: Multivitamins/Minerals/Vitamin C (Tab-A-Vit -) 1 tab PO DAILY [facility] Last Admin: 11/22/19 10:31 Dose: 1 tab Documented by: Nicotine (Nicoderm Patch -) 21 mg TD DAILY [facility] Last Admin: 11/22/19 10:32 Dose: Not Given Documented by: Sodium Chloride (Sodium Chloride Tablet -) 1 gm PO DAILY [facility] Last Admin: 11/22/19 10:32 Dose: 1 gm Documented by: Thiamine HCl (Vitamin B1 -) 100 mg PO DAILY [facility] Last Admin: 11/22/19 10:32 Dose: 100 mg Documented by: - Objective Vital Signs: Vital Signs Temperature 98.2 F 11/22/19 14:00 Pulse Rate 91 H 11/22/19 14:00 Respiratory Rate 20 11/22/19 14:00 Blood Pressure 101/65 11/22/19 14:00 O2 Sat by Pulse Oximetry (%) 97 11/22/19 10:00 Constitutional: Yes: No Distress Gastrointestinal: Yes: Soft, Tenderness (none) Labs: CBC, BMP 11/22/19 07:30 11/22/19 07:30 INR, PTT INR 1.22 (0.83-1.09) H 11/11/19 17:18 Problem List - Problems (1) Diverticulitis of large intestine with complication Assessment/Plan: clinically improving may proceed with PICC line for extended IV antimicrobial Rx Code(s): K57.32 - DVTRCLI OF LG INT W/O PERFORATION OR ABSCESS W/O BLEEDING
[2019-11-22] MEDS ORDERED: ONDANSETRON *ODT* 4 MG TABLET SL PRN (18:50)
--- NOTE | 2019-11-22 19:24 | PN ---
Progress Note (short form) - Note Progress Note: Problem 1. hyponatremia 2. pericolonic abscess 3. etoh abuse 4. anemia 5. copd 6. microscopic hematuria 7. active smoker 8. hypokalemia Current Medications Acetaminophen (Tylenol -) 650 mg PO Q6H PRN PRN Reason: PAIN LEVEL 4 - 6 Last Admin: 11/22/19 14:50 Dose: 650 mg Documented by: Cyanocobalamin (Vitamin B12 Injection -) 1,000 mcg IM DAILY [facility] Last Admin: 11/22/19 10:35 Dose: 1,000 mcg Documented by: Folic Acid (Folic Acid -) 1 mg PO DAILY [facility] Last Admin: 11/22/19 10:31 Dose: 1 mg Documented by: Heparin Sodium (Porcine) (Heparin -) 5,000 unit SQ BID [facility] Last Admin: 11/22/19 10:32 Dose: 5,000 unit Documented by: Metronidazole (Flagyl 500mg Premixed Ivpb -) 500 mg in 100 mls @ 100 mls/hr IVPB Q8H-IV [facility] Last Admin: 11/22/19 13:00 Dose: 100 mls/hr Documented by: Piperacillin Sod/Tazobactam (Sod 3.375 gm/ Dextrose) 50 mls @ 100 mls/hr IVPB Q8H-IV [facility]; Protocol Last Admin: 11/22/19 18:03 Dose: 100 mls/hr Documented by: Levothyroxine Sodium (Synthroid Injection -) 25 mcg IVPUSH DAILY [facility] Last Admin: 11/22/19 10:29 Dose: 25 mcg Documented by: Multivitamins/Minerals/Vitamin C (Tab-A-Vit -) 1 tab PO DAILY [facility] Last Admin: 11/22/19 10:31 Dose: 1 tab Documented by: Nicotine (Nicoderm Patch -) 21 mg TD DAILY [facility] Last Admin: 11/22/19 10:32 Dose: Not Given Documented by: Ondansetron HCl (Zofran Odt -) 4 mg SL Q8H PRN PRN Reason: NAUSEA AND/OR VOMITING Sodium Chloride (Sodium Chloride Tablet -) 1 gm PO DAILY [facility] Last Admin: 11/22/19 10:32 Dose: 1 gm Documented by: Thiamine HCl (Vitamin B1 -) 100 mg PO DAILY [facility] Last Admin: 11/22/19 10:32 Dose: 100 mg Documented by: Last Vital Signs Temp Pulse Resp BP Pulse Ox 98.6 F 68 18 114/67 100 11/22/19 18:00 11/22/19 18:00 11/22/19 18:00 11/22/19 18:00 11/22/19 10:30 alert in nad Lungs clear heart reg Abd soft nontender Ext nontender CBC, BMP 11/22/19 07:30 11/22/19 07:30 IMP- Hyponatremia resolved anemia Plan - cont fluids - replace potassium - repeat labs in am - follow ct scan tomorrow - d/c clinimix once he is tolerating diet - cont abx
[2019-11-23] MEDS ORDERED: DEXTROSE 5%-WATER - 50 ML IVPB ONE ×3 (02:21→17:02)
[2019-11-23] MEDS ORDERED: PIPERACILLIN/TAZOBACTAM 3.375 GM VIAL IVPB ONE ×3 (02:21→17:02)
[2019-11-23] MEDS: PIPERACILLIN/TAZOB 3.375 GM 3.375 GM in DEXTROSE 5%-WATER - 50 ML IVPB SCH ×3 (02:30→17:08)
[2019-11-23] MEDS: ACETAMINOPHEN 325 MG TABLET (FP) PO PRN ×3 (06:59→21:38)
[2019-11-23 08:19] LABS: HEMATOCRIT 33.6 % (35.4-49); HEMOGLOBIN 11.3 GM/dL (11.7-16.9); MCH 31.4 pg (25.7-33.7); MCHC 33.7 g/dl (32.0-35.9); MEAN CELL VOLUME 93.2 fl (80-96); MEAN PLT VOLUME 7.3 fl (7.5-11.1); PLATELET COUNT 581 K/MM3 (134-434); RDW 14.6 % (11.9-15.9); WHITE BLOOD COUNT 9.4 K/mm3 (4.0-10.0)
[2019-11-23 08:30] LABS: ALBUMIN 2.2 g/dl (3.4-5.0); BILIRUBIN,TOTAL 0.2 mg/dL (0.2-1); BLOOD UREA NITROGEN 4.6 mg/dL (7-18); CALCIUM 8.6 mg/dL (8.5-10.1); CREATININE 0.6 mg/dL (0.55-1.3); POTASSIUM 3.9 mmol/L (3.5-5.1)
[2019-11-23] MEDS ORDERED: PT OWN MED DRAWER 7, Y5N ONE ×2 (09:09→10:25)
--- NOTE | 2019-11-23 09:13 | DS ---
Physical Examination Vital Signs: Vital Signs Temperature 98.7 F 11/23/19 06:00 Pulse Rate 82 11/23/19 06:00 Respiratory Rate 18 11/23/19 06:00 Blood Pressure 112/63 11/23/19 06:00 O2 Sat by Pulse Oximetry (%) 100 11/22/19 21:00 Cardiovascular: Yes: S1, S2 Respiratory: Yes: Regular, CTA Bilaterally Gastrointestinal: Yes: Normal Bowel Sounds, Soft. No: Tenderness Labs: CBC, BMP 11/23/19 07:00 11/23/19 07:00 Discharge Summary Problems reviewed: Yes Reason For Visit: DIVERTICULITIS OF LRG INTESTINE,HYPONATREMIA Current Active Problems Chronic low back pain (Acute) Diverticulitis of large intestine with complication (Acute) Hypochloremia (Acute) Hypokalemia (Acute) Hyponatremia (Acute) Leukocytosis (Acute) Neuropathic pain of both feet (Acute) Hospital Course: - Problems (1) Diverticulitis of large intestine with complication Assessment/Plan: Surgery on board repeat CTAP shows interval worsening of previously described mid sigmoid colon diverticulitis/colitis now involving the rest of the distal sigmoid colon, interval worsening in the degree of wall thickening at the mid right sigmoid col on resulting in partial to almost complete obstruction as well as interval increase in size (4x3.2cm) of previously visualized adjacent collection/abscess, interval small amount of free fluid in RUQ and paracolic gutter, mild thickening of the urinary bladder wall likely due to partial distention or surrounding inflammatory changes, small right inguinal hernia containing a small bowel loop in its upper portion due to severe COPD patient is not a candidate for surgery at present~IR consult leukocytosis Flagyl, Zosyn BC neg CTAP from 11/20/19 shows improvement in sigmoid diverticulitis with pericolonic abscess Code(s): K57.32 - DVTRCLI OF LG INT W/O PERFORATION OR ABSCESS W/O BLEEDING (2) Hypokalemia Assessment/Plan: resolved K 3.5 monitor electrolyte daily and replete as needed Code(s): E87.6 - HYPOKALEMIA (3) Hyponatremia Assessment/Plan: resolving Na 137 Sodium Chloride tabs monitor electrolyte daily Code(s): E87.1 - HYPO-OSMOLALITY AND HYPONATREMIA (4) Abdominal pain Assessment/Plan: GI and Surgery on board repeat CTAP shows interval worsening of previously described mid sigmoid colon diverticulitis/colitis now involving the rest of the distal sigmoid colon, interval worsening in the degree of wall thickening at the mid right sigmoid colon resulting in partial to almost complete obstruction as well as interval increase in size (4x3.2cm) of previously visualized adjacent collection/abscess, interval small amount of free fluid in RUQ and paracolic gutter, mild thickening of the urinary bladder wall likely due to partial distention or surrounding inflammatory changes, small right inguinal hernia containing a small bowel loop in its upper portion due to severe COPD patient is not a candidate for surgery at present~IR consult surgical follow up noted dc on Flagyl,rocephin BC neg CTAP from 11/20/19 shows improvement in sigmoid diverticulitis with pericolonic abscess Code(s): R10.9 - UNSPECIFIED ABDOMINAL PAIN Qualifiers: Abdominal location: lower abdomen, unspecified Qualified Code(s): R10.30 - Lower abdominal pain, unspecified (5) Alcohol dependence Assessment/Plan: Gang Supervisor Dr Pastor consult Thiamine, MVI, Folic Acid seizure precaution Code(s): F10.20 - ALCOHOL DEPENDENCE, UNCOMPLICATED (6) COPD (chronic obstructive pulmonary disease) Assessment/Plan: Pulm on board O2 via NC keep SpO2 >90% CTAP shows interval bibasil atelectatic changes and consolidation, right more than left as well as small bilateral pleural effusion, right more than left, moderate COPD changes involving included portion of JUAN and RML Code(s): J44.9 - CHRONIC OBSTRUCTIVE PULMONARY DISEASE, UNSPECIFIED Qualifiers: COPD type: unspecified COPD Qualified Code(s): J44.9 - Chronic obstructive pulmonary disease, unspecified (7) Hypothyroidism, unspecified Assessment/Plan: Levothyroxine Code(s): E03.9 - HYPOTHYROIDISM, UNSPECIFIED Qualifiers: 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 Qualified Code(s): E03.8 - Other specified hypothyroidism; E06.3 - Autoimmune thyroiditis (8) Pneumonia Assessment/Plan: CTAP shows interval bibasil atelectatic changes and consolidation, right more than left as well as small bilateral pleural effusion, right more than left, moderate COPD changes involving included portion of JUAN and RML ID on board leukocystosis afebrile keep SpO2 >90% O2 via NC abx as above Code(s): J18.9 - PNEUMONIA, UNSPECIFIED ORGANISM Condition: Improved - Instructions Referrals: Memo Ma MD [Primary Care Provider] - Disposition: CUSTODIAL FACILITY - Home Medications Comprehensive Discharge Medication List: Ambulatory Orders Levothyroxine [Synthroid -] 25 mcg PO DAILY@0700 #30 tablet 10/08/19 Pantoprazole Sodium [Protonix -] 40 mg PO DAILY #30 tablet.ec 10/08/19 Metronidazole 500 mg PO TID #15 tablet 10/20/19 Acetaminophen [Tylenol .Regular Strength -] 650 mg PO Q6H PRN tablet 11/23/19 Ceftriaxone 2 gm-D5w Bag 2 gm IV DAILY #14 ml 11/23/19 Cyanocobalamin Vit B-12 Inj. [Vitamin B12 Injection -] 1,000 mcg IM DAILY vial 11/23/19 Folic Acid - 1 mg PO DAILY tablet 11/23/19 Heparin - 5,000 unit SQ BID vial 11/23/19 Multivitamins [Multivit ([facility] Formul[facility])] 1 tab PO DAILY tab 11/23/19 Nicotine Patch [Nicoderm Patch -] 21 mg TD DAILY patch 11/23/19 Ondansetron [Zofran *Odt*] 4 mg SL Q8H PRN tab.rapdis 11/23/19 Sodium Chloride Tablet - 1 gm PO DAILY tablet 11/23/19 Thiamine HCl [Vitamin B1 -] 100 mg PO DAILY tablet 11/23/19
[2019-11-23] MEDS: FOLIC ACID 1 MG TABLET (FP) PO SCH (09:15)
[2019-11-23] MEDS: SODIUM CHLORIDE 1 GM TABLET PO SCH (09:23)
[2019-11-23] MEDS: NICOTINE 21 MG/24 HOURS TOPICAL PATCH TD SCH (09:23)
[2019-11-23] MEDS: HEPARIN NA (PORCINE) 5,000 UNITS/ML 1ML VIAL SQ SCH ×2 (09:23→21:38)
[2019-11-23] MEDS: CYANOCOBALAMIN (VITAMIN B-12) 1000 MCG/1 ML VIAL IM SCH (09:24)
[2019-11-23] MEDS: MULTIVITAMINS (DAILY MVI) TABLET (FP) PO SCH (09:24)
[2019-11-23] MEDS: THIAMINE HCL 100 MG TABLET (FP) PO SCH (09:25)
[2019-11-23] MEDS: LEVOTHYROXINE SODIUM 100 MCG VIAL IVPUSH SCH (10:41)
--- NOTE | 2019-11-23 16:27 | PN ---
Progress Note, Physician History of Present Illness: Pt seen and examined at bedside. He is awake and alert. He is tolerating diet. - Current Medication List Current Medications: Active Medications Acetaminophen (Tylenol -) 650 mg PO Q6H PRN PRN Reason: PAIN LEVEL 4 - 6 Last Admin: 11/23/19 14:04 Dose: 650 mg Documented by: Cyanocobalamin (Vitamin B12 Injection -) 1,000 mcg IM DAILY [facility] Last Admin: 11/23/19 09:24 Dose: 1,000 mcg Documented by: Folic Acid (Folic Acid -) 1 mg PO DAILY [facility] Last Admin: 11/23/19 09:15 Dose: 1 mg Documented by: Gabapentin (Neurontin -) 100 mg PO BID [facility] Heparin Sodium (Porcine) (Heparin -) 5,000 unit SQ BID [facility] Last Admin: 11/23/19 09:23 Dose: 5,000 unit Documented by: Metronidazole (Flagyl 500mg Premixed Ivpb -) 500 mg in 100 mls @ 100 mls/hr IVPB Q8H-IV [facility] Last Admin: 11/23/19 09:23 Dose: 100 mls/hr Documented by: Piperacillin Sod/Tazobactam (Sod 3.375 gm/ Dextrose) 50 mls @ 100 mls/hr IVPB Q8H-IV [facility]; Protocol Last Admin: 11/23/19 09:24 Dose: 100 mls/hr Documented by: Levothyroxine Sodium (Synthroid Injection -) 25 mcg IVPUSH DAILY [facility] Last Admin: 11/23/19 10:41 Dose: 25 mcg Documented by: Multivitamins/Minerals/Vitamin C (Tab-A-Vit -) 1 tab PO DAILY [facility] Last Admin: 11/23/19 09:24 Dose: 1 tab Documented by: Nicotine (Nicoderm Patch -) 21 mg TD DAILY [facility] Last Admin: 11/23/19 09:23 Dose: Not Given Documented by: Ondansetron HCl (Zofran Odt -) 4 mg SL Q8H PRN PRN Reason: NAUSEA AND/OR VOMITING Sodium Chloride (Sodium Chloride Tablet -) 1 gm PO DAILY [facility] Last Admin: 11/23/19 09:23 Dose: 1 gm Documented by: Thiamine HCl (Vitamin B1 -) 100 mg PO DAILY [facility] Last Admin: 11/23/19 09:25 Dose: 100 mg Documented by: - Objective Vital Signs: Vital Signs Temperature 99.0 F 11/23/19 14:00 Pulse Rate 73 11/23/19 14:00 Respiratory Rate 18 11/23/19 14:00 Blood Pressure 116/65 11/23/19 14:00 O2 Sat by Pulse Oximetry (%) 100 11/23/19 10:00 Constitutional: Yes: Calm Eyes: Yes: Conjunctiva Clear HENT: Yes: Atraumatic Neck: Yes: Supple Cardiovascular: Yes: S1, S2 Respiratory: Yes: CTA Bilaterally Gastrointestinal: Yes: Soft Genitourinary: Yes: WNL Musculoskeletal: Yes: WNL Edema: No Neurological: Yes: Oriented Psychiatric: Yes: Oriented Labs: CBC, BMP 11/23/19 07:00 11/23/19 07:00 INR, PTT INR 1.22 (0.83-1.09) H 11/11/19 17:18 Problem List - Problems (1) Hypokalemia Code(s): E87.6 - HYPOKALEMIA (2) Hyponatremia Code(s): E87.1 - HYPO-OSMOLALITY AND HYPONATREMIA (3) Abdominal pain Code(s): R10.9 - UNSPECIFIED ABDOMINAL PAIN Qualifiers: Abdominal location: lower abdomen, unspecified Qualified Code(s): R10.30 - Lower abdominal pain, unspecified Assessment/Plan Current Medications Generic Name Dose Route Start Last Admin Trade Name Freq PRN Reason Stop Dose Admin Acetaminophen 650 mg 11/19/19 15:34 11/23/19 14:04 Tylenol - PO 650 mg Q6H PRN Administration PAIN LEVEL 4 - 6 Cyanocobalamin 1,000 mcg 11/21/19 13:30 11/23/19 09:24 Vitamin B12 Injection - IM 1,000 mcg DAILY [facility] Administration Folic Acid 1 mg 11/18/19 10:00 11/23/19 09:15 Folic Acid - PO 1 mg DAILY [facility] Administration Gabapentin 100 mg 11/23/19 22:00 Neurontin - PO BID [facility] Heparin Sodium (Porcine) 5,000 unit 11/17/19 22:00 11/23/19 09:23 Heparin - SQ 5,000 unit BID [facility] Administration Metronidazole 500 mg in 100 mls @ 100 mls/hr 11/17/19 18:00 11/23/19 09:23 Flagyl 500mg Premixed Ivpb - IVPB 100 mls/hr Q8H-IV [facility] Administration Piperacillin Sod/Tazobactam 50 mls @ 100 mls/hr 11/17/19 18:00 11/23/19 09:24 Sod 3.375 gm/ Dextrose IVPB 100 mls/hr Q8H-IV [facility] Administration Protocol Levothyroxine Sodium 25 mcg 11/18/19 10:00 11/23/19 10:41 Synthroid Injection - IVPUSH 25 mcg DAILY [facility] Administration Multivitamins/Minerals/Vitamin C 1 tab 11/18/19 10:00 11/23/19 09:24 Tab-A-Vit - PO 1 tab DAILY [facility] Administration Nicotine 21 mg 11/18/19 10:00 11/23/19 09:23 Nicoderm Patch - TD Not Given DAILY [facility] Ondansetron HCl 4 mg 11/22/19 18:50 Zofran Odt - SL Q8H PRN NAUSEA AND/OR VOMITING Sodium Chloride 1 gm 11/18/19 17:30 11/23/19 09:23 Sodium Chloride Tablet - PO 1 gm DAILY [facility] Administration Thiamine HCl 100 mg 11/18/19 10:00 11/23/19 09:25 Vitamin B1 - PO 100 mg DAILY [facility] Administration Impression 1. hyponatremia 2. pericolonic abscess 3. etoh abuse 4. anemia 5. copd 6. microscopic hematuria 7. active smoker 8. hypokalemia Plan - pt tolerating diet - lytes stable - outpt follow up - will follow prn - sodium is stable - recommend he avoid alcohol
[2019-11-23] MEDS: GABAPENTIN 100 MG CAPSULE PO SCH (21:40)
--- NOTE | 2019-11-24 01:05 | EKG ---
Test Reason : Blood Pressure : / mmHG Vent. Rate : 067 BPM Atrial Rate : 067 BPM P-R Int : 130 ms QRS Dur : 088 ms QT Int : 408 ms P-R-T Axes : 055 052 061 degrees QTc Int : 431 ms POOR DATA QUALITY, INTERPRETATION MAY BE ADVERSELY AFFECTED NORMAL SINUS RHYTHM NORMAL ECG WHEN COMPARED WITH ECG OF 11-NOV-2019 15:48, VENT. RATE HAS DECREASED BY 38 BPM Confirmed by MD Michelle, Davidson ([id number]) on 11/24/2019 1:05:25 AM Referred By: Confirmed By:Davidson Martinez MD
[2019-11-24] MEDS ORDERED: PIPERACILLIN/TAZOBACTAM 3.375 GM VIAL IVPB ONE ×2 (02:15→09:04)
[2019-11-24] MEDS ORDERED: DEXTROSE 5%-WATER - 50 ML IVPB ONE ×2 (02:16→09:04)
[2019-11-24] MEDS: PIPERACILLIN/TAZOB 3.375 GM 3.375 GM in DEXTROSE 5%-WATER - 50 ML IVPB SCH ×2 (02:28→18:07)
[2019-11-24] MEDS: ACETAMINOPHEN 325 MG TABLET (FP) PO PRN ×3 (07:41→21:34)
[2019-11-24] MEDS ORDERED: PT OWN MED DRAWER 7, Y5N ONE (09:03)
[2019-11-24] MEDS: THIAMINE HCL 100 MG TABLET (FP) PO SCH (09:20)
[2019-11-24] MEDS: MULTIVITAMINS (DAILY MVI) TABLET (FP) PO SCH (09:20)
[2019-11-24] MEDS: GABAPENTIN 100 MG CAPSULE PO SCH ×2 (09:20→21:34)
[2019-11-24] MEDS: SODIUM CHLORIDE 1 GM TABLET PO SCH (09:20)
[2019-11-24] MEDS: FOLIC ACID 1 MG TABLET (FP) PO SCH (09:20)
[2019-11-24] MEDS: NICOTINE 21 MG/24 HOURS TOPICAL PATCH TD SCH (09:20)
[2019-11-24] MEDS: CYANOCOBALAMIN (VITAMIN B-12) 1000 MCG/1 ML VIAL IM SCH (09:23)
[2019-11-24] MEDS: LEVOTHYROXINE SODIUM 100 MCG VIAL IVPUSH SCH ×2 (09:45→15:14)
--- NOTE | 2019-11-24 12:24 | PN ---
Progress Note, Physician Chief Complaint: Acute perforated diverticulitis with Hinchey 1 pericolic abscess Hyponatremia Etoh abuse Anemia COPD Hematuria Hypokalemia History of Present Illness: NAD CTAP with contrast reviewed Surgery on board Pt to go to SNF with 14 days of IV ceftriaxone 2 gm once a day + PO flagyl TID - Current Medication List Current Medications: Active Medications Acetaminophen (Tylenol -) 650 mg PO Q6H PRN PRN Reason: PAIN LEVEL 4 - 6 Last Admin: 11/24/19 07:41 Dose: 650 mg Documented by: Cyanocobalamin (Vitamin B12 Injection -) 1,000 mcg IM DAILY [facility] Last Admin: 11/24/19 09:23 Dose: 1,000 mcg Documented by: Folic Acid (Folic Acid -) 1 mg PO DAILY [facility] Last Admin: 11/24/19 09:20 Dose: 1 mg Documented by: Gabapentin (Neurontin -) 100 mg PO BID [facility] Last Admin: 11/24/19 09:20 Dose: 100 mg Documented by: Heparin Sodium (Porcine) (Heparin -) 5,000 unit SQ BID [facility] Last Admin: 11/23/19 21:38 Dose: 5,000 unit Documented by: Metronidazole (Flagyl 500mg Premixed Ivpb -) 500 mg in 100 mls @ 100 mls/hr IVPB Q8H-IV [facility] Last Admin: 11/24/19 04:11 Dose: Not Given Documented by: Piperacillin Sod/Tazobactam (Sod 3.375 gm/ Dextrose) 50 mls @ 100 mls/hr IVPB Q8H-IV [facility]; Protocol Last Admin: 11/24/19 02:28 Dose: 100 mls/hr Documented by: Levothyroxine Sodium (Synthroid Injection -) 25 mcg IVPUSH DAILY [facility] Last Admin: 11/24/19 09:45 Dose: Not Given Documented by: Multivitamins/Minerals/Vitamin C (Tab-A-Vit -) 1 tab PO DAILY [facility] Last Admin: 11/24/19 09:20 Dose: 1 tab Documented by: Nicotine (Nicoderm Patch -) 21 mg TD DAILY [facility] Last Admin: 11/24/19 09:20 Dose: Not Given Documented by: Ondansetron HCl (Zofran Odt -) 4 mg SL Q8H PRN PRN Reason: NAUSEA AND/OR VOMITING Sodium Chloride (Sodium Chloride Tablet -) 1 gm PO DAILY [facility] Last Admin: 03/18/20 09:20 Dose: 1 gm Documented by: Thiamine HCl (Vitamin B1 -) 100 mg PO DAILY [facility] Last Admin: 11/24/19 09:20 Dose: 100 mg Documented by: - Objective Vital Signs: Vital Signs Temperature 97.7 F 11/24/19 09:14 Pulse Rate 91 H 11/24/19 09:14 Respiratory Rate 11/24/19 09:14 Blood Pressure 104/61 11/24/19 09:14 O2 Sat by Pulse Oximetry (%) 100 11/24/19 10:43 Constitutional: Yes: No Distress, Calm, Thin Cardiovascular: Yes: Regular Rate and Rhythm Respiratory: Yes: Regular, CTA Bilaterally Gastrointestinal: Yes: Normal Bowel Sounds, Soft Genitourinary: Yes: WNL Musculoskeletal: Yes: Muscle Weakness Extremities: Yes: WNL Edema: No Peripheral Pulses WNL: Yes Neurological: Yes: Alert, Oriented Psychiatric: Yes: Alert, Oriented Labs: CBC, BMP 11/23/19 07:00 11/23/19 07:00 INR, PTT INR 1.22 (0.83-1.09) H 11/11/19 17:18 Problem List - Problems (1) Neuropathic pain of both feet Assessment/Plan: -likely 2/2 to chronic alcohol use -Also low in B12 -Cyanocobalamine 1g IM daily until d/c then transition to 2500 mcg SL daily Problems reviewed: Yes Code(s): G57.93 - UNSPECIFIED MONONEUROPATHY OF BILATERAL LOWER LIMBS Assessment/Plan (1) Diverticulitis of large intestine with complication Assessment/Plan: -CTAP:11/14/19:Interval worsening of previously described mid sigmoid colon diverticulitis/colitis now involving the rest of the distal sigmoid colon. There is interval worsening in the degree of wall thickening at the mid sigmoid colon resulting in partial to almost complete obstruction as well as interval increase in size of previously visualized adjacent collection/abscess. No extraluminal air is identified.. Interval small amount of free fluid in the right upper quadrant and paracolic gutter. Mild thickening of the urinary bladder wall likely due to partial distention or surrounding inflammatory changes. Correlate clinically to rule out cystitis. A small right inguinal hernia containing a small bowel loop in its upper portion is again seen surgery following -Full liquid diet--->advance to soft diet -Repeat CTAP with contrast 11/20/19:Since a prior study of 11/26/2019, a perisigmoid diverticular abscess has somewhat decreased in size now measuring approximately 2.9 x 2.5 x 1.9 cm. The degree of sigmoid diverticulitis also appears somewhat improved. No new fluid collections have developed within the abdomen or pelvis. There is also been improvement in small bilateral pleural effusions with basilar consolidation/atelectasis. No significant fluid is now noted. Mild atelectatic changes remain bilaterally. -Surgery on board -Continue IV abx -ID consult appreciated Code(s): K57.32 - DVTRCLI OF LG INT W/O PERFORATION OR ABSCESS W/O BLEEDING (2) Hypokalemia Assessment/Plan: -Resolved -Nephrology on board -monitor trend Code(s): E87.6 - HYPOKALEMIA (3) Hyponatremia Assessment/Plan: -stable -Nephrology on board -NACl tabs Code(s): E87.1 - HYPO-OSMOLALITY AND HYPONATREMIA (4) Anemia Assessment/Plan: -stable Code(s): D64.9 - ANEMIA, UNSPECIFIED (5) COPD (chronic obstructive pulmonary disease) Assessment/Plan: -Stable -bronchodilators Code(s): J44.9 - CHRONIC OBSTRUCTIVE PULMONARY DISEASE, UNSPECIFIED Qualifiers: COPD type: unspecified COPD Qualified Code(s): J44.9 - Chronic obstructive pulmonary disease, unspecified
[2019-11-24] MEDS: HEPARIN NA (PORCINE) 5,000 UNITS/ML 1ML VIAL SQ SCH ×2 (12:45→21:34)
--- NOTE | 2019-11-24 14:00 | PN ---
Progress Note, Physician History of Present Illness: Pt seen and examined. He is tolerating diet. - Current Medication List Current Medications: Active Medications Acetaminophen (Tylenol -) 650 mg PO Q6H PRN PRN Reason: PAIN LEVEL 4 - 6 Last Admin: 11/24/19 07:41 Dose: 650 mg Documented by: Cyanocobalamin (Vitamin B12 Injection -) 1,000 mcg IM DAILY [facility] Last Admin: 11/24/19 09:23 Dose: 1,000 mcg Documented by: Folic Acid (Folic Acid -) 1 mg PO DAILY [facility] Last Admin: 11/24/19 09:20 Dose: 1 mg Documented by: Gabapentin (Neurontin -) 100 mg PO BID [facility] Last Admin: 11/24/19 09:20 Dose: 100 mg Documented by: Heparin Sodium (Porcine) (Heparin -) 5,000 unit SQ BID [facility] Last Admin: 11/24/19 12:45 Dose: 5,000 unit Documented by: Metronidazole (Flagyl 500mg Premixed Ivpb -) 500 mg in 100 mls @ 100 mls/hr IVPB Q8H-IV [facility] Last Admin: 11/24/19 04:11 Dose: Not Given Documented by: Piperacillin Sod/Tazobactam (Sod 3.375 gm/ Dextrose) 50 mls @ 100 mls/hr IVPB Q8H-IV [facility]; Protocol Last Admin: 11/24/19 02:28 Dose: 100 mls/hr Documented by: Levothyroxine Sodium (Synthroid Injection -) 25 mcg IVPUSH DAILY [facility] Last Admin: 11/24/19 09:45 Dose: Not Given Documented by: Multivitamins/Minerals/Vitamin C (Tab-A-Vit -) 1 tab PO DAILY [facility] Last Admin: 11/24/19 09:20 Dose: 1 tab Documented by: Nicotine (Nicoderm Patch -) 21 mg TD DAILY [facility] Last Admin: 11/24/19 09:20 Dose: Not Given Documented by: Ondansetron HCl (Zofran Odt -) 4 mg SL Q8H PRN PRN Reason: NAUSEA AND/OR VOMITING Sodium Chloride (Sodium Chloride Tablet -) 1 gm PO DAILY [facility] Last Admin: 11/24/19 09:20 Dose: 1 gm Documented by: Thiamine HCl (Vitamin B1 -) 100 mg PO DAILY [facility] Last Admin: 11/24/19 09:20 Dose: 100 mg Documented by: - Objective Vital Signs: Vital Signs Temperature 97.7 F 11/24/19 09:14 Pulse Rate 91 H 11/24/19 09:14 Respiratory Rate 20 11/24/19 09:14 Blood Pressure 104/61 11/24/19 09:14 O2 Sat by Pulse Oximetry (%) 100 11/24/19 10:43 Constitutional: Yes: Calm Eyes: Yes: Conjunctiva Clear HENT: Yes: Atraumatic Cardiovascular: Yes: S1, S2 Respiratory: Yes: CTA Bilaterally Gastrointestinal: Yes: Normal Bowel Sounds, Soft Genitourinary: Yes: WNL Musculoskeletal: Yes: WNL Edema: No Neurological: Yes: Oriented Psychiatric: Yes: Oriented Labs: CBC, BMP 11/23/19 07:00 11/23/19 07:00 INR, PTT INR 1.22 (0.83-1.09) H 11/11/19 17:18 Problem List - Problems (1) Hypokalemia Code(s): E87.6 - HYPOKALEMIA (2) Hyponatremia Code(s): E87.1 - HYPO-OSMOLALITY AND HYPONATREMIA (3) Abdominal pain Code(s): R10.9 - UNSPECIFIED ABDOMINAL PAIN Qualifiers: Abdominal location: lower abdomen, unspecified Qualified Code(s): R10.30 - Lower abdominal pain, unspecified Assessment/Plan Current Medications Generic Name Dose Route Start Last Admin Trade Name Freq PRN Reason Stop Dose Admin Acetaminophen 650 mg 11/19/19 15:34 11/24/19 07:41 Tylenol - PO 650 mg Q6H PRN Administration PAIN LEVEL 4 - 6 Cyanocobalamin 1,000 mcg 11/21/19 13:30 11/24/19 09:23 Vitamin B12 Injection - IM 1,000 mcg DAILY [facility] Administration Folic Acid 1 mg 11/18/19 10:00 11/24/19 09:20 Folic Acid - PO 1 mg DAILY [facility] Administration Gabapentin 100 mg 11/23/19 22:00 11/24/19 09:20 Neurontin - PO 100 mg BID [facility] Administration Heparin Sodium (Porcine) 5,000 unit 11/17/19 22:00 11/24/19 12:45 Heparin - SQ 5,000 unit BID [facility] Administration Metronidazole 500 mg in 100 mls @ 100 mls/hr 11/17/19 18:00 11/24/19 04:11 Flagyl 500mg Premixed Ivpb - IVPB Not Given Q8H-IV [facility] Piperacillin Sod/Tazobactam 50 mls @ 100 mls/hr 11/17/19 18:00 11/24/19 02:28 Sod 3.375 gm/ Dextrose IVPB 100 mls/hr Q8H-IV [facility] Administration Protocol Levothyroxine Sodium 25 mcg 11/18/19 10:00 11/24/19 09:45 Synthroid Injection - IVPUSH Not Given DAILY [facility] Multivitamins/Minerals/Vitamin C 1 tab 11/18/19 10:00 11/24/19 09:20 Tab-A-Vit - PO 1 tab DAILY [facility] Administration Nicotine 21 mg 11/18/19 10:00 11/24/19 09:20 Nicoderm Patch - TD Not Given DAILY [facility] Ondansetron HCl 4 mg 11/22/19 18:50 Zofran Odt - SL Q8H PRN NAUSEA AND/OR VOMITING Sodium Chloride 1 gm 11/18/19 17:30 11/24/19 09:20 Sodium Chloride Tablet - PO 1 gm DAILY [facility] Administration Thiamine HCl 100 mg 11/18/19 10:00 11/24/19 09:20 Vitamin B1 - PO 100 mg DAILY [facility] Administration Impression 1. hyponatremia 2. pericolonic abscess 3. etoh abuse 4. anemia 5. copd 6. microscopic hematuria 7. active smoker 8. hypokalemia Plan - sodium stable - cont salt tab for now - monitor lytes - outpt follow up - avoid alcohol - will follow PRN
--- NOTE | 2019-11-24 14:39 | DS ---
Physical Examination Vital Signs: Vital Signs Temperature 97.7 F 11/24/19 09:14 Pulse Rate 91 H 11/24/19 09:14 Respiratory Rate 20 11/24/19 09:14 Blood Pressure 104/61 11/24/19 09:14 O2 Sat by Pulse Oximetry (%) 100 11/24/19 10:43 Findings/Remarks: (1) Neuropathic pain of both feet Assessment/Plan: -likely 2/2 to chronic alcohol use -Also low in B12 -Cyanocobalamine 1g IM daily until d/c then transition to 2500 mcg SL daily Problems reviewed: Yes Code(s): G57.93 - UNSPECIFIED MONONEUROPATHY OF BILATERAL LOWER LIMBS Assessment/Plan (1) Diverticulitis of large intestine with complication Assessment/Plan: -CTAP:11/14/19:Interval worsening of previously described mid sigmoid colon diverticulitis/colitis now involving the rest of the distal sigmoid colon. There is interval worsening in the degree of wall thickening at the mid sigmoid colon resulting in partial to almost complete obstruction as well as interval increase in size of previously visualized adjacent collection/abscess. No extraluminal air is identified.. Interval small amount of free fluid in the right upper quadrant and paracolic gutter. Mild thickening of the urinary bladder wall likely due to partial distention or surrounding inflammatory changes. Correlate clinically to rule out cystitis. A small right inguinal hernia containing a sm all bowel loop in its upper portion is again seen surgery following -soft diet -Repeat CTAP with contrast 11/20/19:Since a prior study of 11/26/2019, a perisigmoid diverticular abscess has somewhat decreased in size now measuring approximately 2.9 x 2.5 x 1.9 cm. The degree of sigmoid diverticulitis also appears somewhat improved. No new fluid collections have developed within the abdomen or pelvis. There is also been improvement in small bilateral pleural effusions with basilar consolidation/atelectasis. No significant fluid is now noted. Mild atelectatic changes remain bilaterally. -Surgery on board -Continue IV abx -ID consult appreciated Code(s): K57.32 - DVTRCLI OF LG INT W/O PERFORATION OR ABSCESS W/O BLEEDING (2) Hypokalemia Assessment/Plan: -Resolved -Nephrology on board -monitor trend Code(s): E87.6 - HYPOKALEMIA (3) Hyponatremia Assessment/Plan: -stable -Nephrology on board -NACl tabs Code(s): E87.1 - HYPO-OSMOLALITY AND HYPONATREMIA (4) Anemia Assessment/Plan: -stable Code(s): D64.9 - ANEMIA, UNSPECIFIED (5) COPD (chronic obstructive pulmonary disease) Assessment/Plan: -Stable -bronchodilators Code(s): J44.9 - CHRONIC OBSTRUCTIVE PULMONARY DISEASE, UNSPECIFIED Qualifiers: COPD type: unspecified COPD Qualified Code(s): J44.9 - Chronic obstructive pulmonary disease, unspecified Constitutional: Yes: No Distress, Calm, Thin Cardiovascular: Yes: Regular Rate and Rhythm Respiratory: Yes: Regular, CTA Bilaterally Gastrointestinal: Yes: Normal Bowel Sounds, Soft Renal/: Yes: WNL Musculoskeletal: Yes: Muscle Weakness Extremities: Yes: WNL Edema: No Peripheral Pulses WNL: Yes Neurological: Yes: Alert, Oriented Psychiatric: Yes: Alert, Oriented Labs: CBC, BMP 11/23/19 07:00 11/23/19 07:00 Discharge Summary Problems reviewed: Yes Reason For Visit: DIVERTICULITIS OF LRG INTESTINE,HYPONATREMIA Current Active Problems Chronic low back pain (Acute) Diverticulitis of large intestine with complication (Acute) Hypochloremia (Acute) Hypokalemia (Acute) Hyponatremia (Acute) Leukocytosis (Acute) Neuropathic pain of both feet (Acute) Laboratory Last Values WBC 9.4 K/mm3 (4.0-10.0) 11/23/19 07:00 RBC 3.60 M/mm3 (4.00-5.60) L 11/23/19 07:00 Hgb 11.3 GM/dL (11.7-16.9) L 11/23/19 07:00 Hct 33.6 % (35.4-49) L 11/23/19 07:00 MCV 93.2 fl (80-96) 11/23/19 07:00 MCH 31.4 pg (25.7-33.7) 11/23/19 07:00 MCHC 33.7 g/dl (32.0-35.9) 11/23/19 07:00 RDW 14.6 % (11.9-15.9) 11/23/19 07:00 Plt Count 581 K/MM3 (134-434) H 11/23/19 07:00 MPV 7.3 fl (7.5-11.1) L 11/23/19 07:00 Absolute Neuts (auto) 6.5 K/mm3 (1.5-8.0) 11/22/19 07:30 Neutrophils % 62.1 % (42.8-82.8) 11/22/19 07:30 Lymphocytes % 22.6 % (8-40) 11/22/19 07:30 Monocytes % 11.2 % (3.8-10.2) H 11/22/19 07:30 Eosinophils % 2.8 % (0-4.5) 11/22/19 07:30 Basophils % 1.3 % (0-2.0) 11/22/19 07:30 Nucleated RBC % 0 % (0-0) 11/22/19 07:30 PT with INR 14.40 SEC (9.7-13.0) H 11/11/19 17:18 INR 1.22 (0.83-1.09) H 11/11/19 17:18 PTT (Actin FS) 31.8 SECONDS (25.2-36.5) 11/11/19 17:18 Sodium 136 mmol/L (136-145) 11/23/19 07:00 Potassium 3.9 mmol/L (3.5-5.1) 11/23/19 07:00 Chloride 101 mmol/L (98-107) 11/23/19 07:00 Carbon Dioxide 28 mmol/L (21-32) 11/23/19 07:00 Anion Gap 7 MMOL/L (8-16) L 11/23/19 07:00 BUN 4.6 mg/dL (7-18) L 11/23/19 07:00 Creatinine 0.6 mg/dL (0.55-1.3) 11/23/19 07:00 Est GFR (CKD-EPI)AfAm 131.19 11/23/19 07:00 Est GFR (CKD-EPI)NonAf 113.19 11/23/19 07:00 POC Glucometer 94 UNITS (80-120) 11/12/19 23:25 Random Glucose 87 mg/dL (74-106) 11/23/19 07:00 Serum Osmolality 269 mosm/kg (278-305) L 11/12/19 00:17 Lactic Acid 1.1 mmol/L (0.4-2.0) 11/11/19 17:18 Calcium 8.6 mg/dL (8.5-10.1) 11/23/19 07:00 Magnesium 1.7 mg/dL (1.8-2.4) L 11/20/19 08:55 Total Bilirubin 0.2 mg/dL (0.2-1) 11/23/19 07:00 AST 13 U/L (15-37) L 11/23/19 07:00 ALT 8 U/L (13-61) L 11/23/19 07:00 Alkaline Phosphatase 52 U/L (45-117) 11/23/19 07:00 Creatine Kinase 42 U/L (26-308) 11/11/19 15:40 Troponin I < 0.02 ng/ml (0.00-0.05) 11/11/19 15:40 C-Reactive Protein 1.5 MG/DL (0.00-0.3) H 11/15/19 06:45 Total Protein 5.0 g/dl (6.4-8.2) L 11/23/19 07:00 Albumin 2.2 g/dl (3.4-5.0) L 11/23/19 07:00 Urine Color Yellow 11/11/19 20:20 Urine Appearance Clear 11/11/19 20:20 Urine pH 6.5 (5.0-8.0) 11/11/19 20:20 Ur Specific Quinn 1.046 (1.010-1.035) H 11/11/19 20:20 Urine Protein Negative (NEGATIVE) 11/11/19 20:20 Urine Glucose (UA) Negative (NEGATIVE) 11/11/19 20:20 Urine Ketones Negative (NEGATIVE) 11/11/19 20:20 Urine Blood Negative (NEGATIVE) 11/11/19 20:20 Urine Nitrite Negative (NEGATIVE) 11/11/19 20:20 Urine Bilirubin Negative (NEGATIVE) 11/11/19 20:20 Urine Urobilinogen 0.2 mg/dL (0.2-1.0) 11/11/19 20:20 Ur Leukocyte Esterase Negative (NEGATIVE) 11/11/19 20:20 Urine Osmolality 186 mosm/kg (300-900) L D 11/12/19 00:05 Ur Random Sodium 12 MMOL/L (40-220) L 11/12/19 00:05 Ur Random Potassium < 9.0 MMOL/L (25-125) L 11/12/19 00:05 Ur Random Chloride < 11 MMOL/L (110-250) L 11/12/19 00:05 Opiates Screen Negative ng/ml (COTHQJ=029) 11/11/19 20:20 Methadone Screen Negative ng/ml (RGCCOD=080) 11/11/19 20:20 Barbiturate Screen Negative ng/ml (BNBUVH=095) 11/11/19 20:20 Phencyclidine Screen Negative ng/ml (CUTOFF=25) 11/11/19 20:20 Ur Amphetamines Screen Negative ng/ml (DBQHEN=094) 11/11/19 20:20 MDMA (Ecstasy) Screen Negative ng/ml (APBZFO=834) 11/11/19 20:20 Benzodiazepines Screen Negative ng/ml (GMYITY=781) 11/11/19 20:20 Cocaine Screen Negative ng/ml (WZOQWE=232) 11/11/19 20:20 U Marijuana (THC) Screen Negative ng/ml (CUTOFF=50) 11/11/19 20:20 Urine Ethyl Alcohol Negative 11/11/19 20:20 Microbiology 11/12/19 00:17 Blood - Peripheral Venous Blood Culture - Final NO GROWTH AFTER 5 DAYS INCUBATION 11/12/19 00:17 Blood - Peripheral Venous Blood Culture - Final NO GROWTH AFTER 5 DAYS INCUBATION 11/11/19 20:20 Urine - Urine Clean Catch Urine Culture - Final NO GROWTH OBTAINED Vital Signs Temp 97.7 F 11/24/19 09:14 Pulse 91 H 11/24/19 09:14 Resp 20 11/24/19 09:14 BP 104/61 11/24/19 09:14 Pulse Ox 100 11/24/19 10:43 Intake & Output 11/23/19 11/24/19 11/24/19 23:59 11:59 23:59 Other: Voiding Method Toilet Toilet # Unmeasured Voids Void 2 3 Bowel Movement Yes Yes # Bowel Movements 1 1 Hospital Course: - Problems (1) Diverticulitis of large intestine with complication Assessment/Plan: Surgery on board repeat CTAP shows interval worsening of previously described mid sigmoid colon diverticulitis/colitis now involving the rest of the distal sigmoid colon, interval worsening in the degree of wall thickening at the mid right sigmoid colon resulting in partial to almost complete obstruction as well as interval increase in size (4x3.2cm) of previously visualized adjacent collection/abscess, interval small amount of free fluid in RUQ and paracolic gutter, mild thickening of the urinary bladder wall likely due to partial distention or surrounding inflammatory changes, small right inguinal hernia containing a small bowel loop in its upper portion due to severe COPD patient is not a candidate for surgery at present~IR consult leukocytosis Flagyl Zosyn BC neg CTAP from 11/20/19 shows improvement in sigmoid diverticulitis with pericolonic abscess Code(s): K57.32 - DVTRCLI OF LG INT W/O PERFORATION OR ABSCESS W/O BLEEDING (2) Hypokalemia Assessment/Plan: resolved K 3.5 monitor electrolyte daily and replete as needed Code(s): E87.6 - HYPOKALEMIA (3) Hyponatremia Assessment/Plan: resolving Na 137 Sodium Chloride tabs monitor electrolyte daily Code(s): E87.1 - HYPO-OSMOLALITY AND HYPONATREMIA (4) Abdominal pain Assessment/Plan: GI and Surgery on board repeat CTAP shows interval worsening of previously described mid sigmoid colon diverticulitis/colitis now involving the rest of the distal sigmoid colon, interval worsening in the degree of wall thickening at the mid right sigmoid colon resulting in partial to almost complete obstruction as well as interval increase in size (4x3.2cm) of previously visualized adjacent collection/abscess, interval small amount of free fluid in RUQ and paracolic gutter, mild thickening of the urinary bladder wall likely due to partial distention or surrounding inflammatory changes, small right inguinal hernia containing a small bowel loop in its upper portion due to severe COPD patient is not a candidate for surgery at present~IR consult surgical follow up noted dc on Flagyl,rocephin BC neg CTAP from 11/20/19 shows improvement in sigmoid diverticulitis with pericolonic abscess Code(s): R10.9 - UNSPECIFIED ABDOMINAL PAIN Qualifiers: Abdominal location: lower abdomen, unspecified Qualified Code(s): R10.30 - Lower abdominal pain, unspecified (5) Alcohol dependence Assessment/Plan: [employer] Card Check[employer] Dr Pastor consult Thiamine, MVI, Folic Acid seizure precaution Code(s): F10.20 - ALCOHOL DEPENDENCE, UNCOMPLICATED (6) COPD (chronic obstructive pulmonary disease) Assessment/Plan: Pulm on board O2 via NC keep SpO2 >90% CTAP shows interval bibasil atelectatic changes and consolidation, right more than left as well as small bilateral pleural effusion, right more than left, moderate COPD changes involving included portion of JUAN and RML Code(s): J44.9 - CHRONIC OBSTRUCTIVE PULMONARY DISEASE, UNSPECIFIED Qualifiers: COPD type: unspecified COPD Qualified Code(s): J44.9 - Chronic obstructive pulmonary disease, unspecified (7) Hypothyroidism, unspecified Assessment/Plan: Levothyroxine Code(s): E03.9 - HYPOTHYROIDISM, UNSPECIFIED Qualifiers: 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 Qualified Code(s): E03.8 - Other specified hypothyroidism; E06.3 - Autoimmune thyroiditis (8) Pneumonia Assessment/Plan: CTAP shows interval bibasil atelectatic changes and consolidation, right more than left as well as small bilateral pleural effusion, right more than left, moderate COPD changes involving included portion of JUAN and RML ID on board leukocystosis afebrile keep SpO2 >90% O2 via NC abx as above Code(s): J18.9 - PNEUMONIA, UNSPECIFIED ORGANISM Condition: Improved - Instructions Diet, Activity, Other Instructions: PICC FOR CEFTRIAXONE 2GM QD + FLAGYL 500MG PO TID FOR ADDITIONAL 14 DAYS Referrals: Memo Ma MD [Primary Care Provider] - [facility] - Home Medications Comprehensive Discharge Medication List: Ambulatory Orders Levothyroxine [Synthroid -] 25 mcg PO DAILY@0700 #30 tablet 10/08/19 Pantoprazole Sodium [Protonix -] 40 mg PO DAILY #30 tablet.ec 10/08/19 Metronidazole 500 mg PO TID #15 tablet 10/20/19 Acetaminophen [Tylenol .Regular Strength -] 650 mg PO Q6H PRN tablet 11/23/19 Ceftriaxone 2 gm-D5w Bag 2 gm IV DAILY #14 ml 11/23/19 Cyanocobalamin Vit B-12 Inj. [Vitamin B12 Injection -] 1,000 mcg IM DAILY vial 11/23/19 Folic Acid - 1 mg PO DAILY tablet 11/23/19 Heparin - 5,000 unit SQ BID vial 11/23/19 Multivitamins [Multivit ([facility] Formulary)] 1 tab PO DAILY tab 11/23/19 Nicotine Patch [Nicoderm Patch -] 21 mg TD DAILY patch 11/23/19 Ondansetron [Zofran *Odt*] 4 mg SL Q8H PRN tab.rapdis 11/23/19 Sodium Chloride Tablet - 1 gm PO DAILY tablet 11/23/19 Thiamine HCl [Vitamin B1 -] 100 mg PO DAILY tablet 11/23/19
[2019-11-24] MEDS ORDERED: DEXTROSE 5%-WATER 100 ML IVPB ONE (15:12)
[2019-11-24] MEDS: CEFTRIAXONE 2 GM in DEXTROSE 5%-WATER 100 ML IVPB SCH (15:14)
[2019-11-25] MEDS ORDERED: DEXTROSE 5%-WATER 100 ML IVPB ONE (09:30)
[2019-11-25] MEDS ORDERED: PT OWN MED DRAWER 7, Y5N ONE (09:30)
[2019-11-25] MEDS: CEFTRIAXONE 2 GM in DEXTROSE 5%-WATER 100 ML IVPB SCH (09:46)
[2019-11-25] MEDS: MULTIVITAMINS (DAILY MVI) TABLET (FP) PO SCH (09:48)
[2019-11-25] MEDS: FOLIC ACID 1 MG TABLET (FP) PO SCH (09:48)
[2019-11-25] MEDS: SODIUM CHLORIDE 1 GM TABLET PO SCH (09:48)
[2019-11-25] MEDS: ACETAMINOPHEN 325 MG TABLET (FP) PO PRN (09:49)
[2019-11-25] MEDS: GABAPENTIN 100 MG CAPSULE PO SCH (09:50)
[2019-11-25] MEDS: NICOTINE 21 MG/24 HOURS TOPICAL PATCH TD SCH (09:52)
[2019-11-25] MEDS: HEPARIN NA (PORCINE) 5,000 UNITS/ML 1ML VIAL SQ SCH ×2 (09:52→10:35)
[2019-11-25] MEDS: LEVOTHYROXINE SODIUM 100 MCG VIAL IVPUSH SCH (09:52)
[2019-11-25] MEDS: THIAMINE HCL 100 MG TABLET (FP) PO SCH (09:53)
[2019-11-25] MEDS: CYANOCOBALAMIN (VITAMIN B-12) 1000 MCG/1 ML VIAL IM SCH (09:53)
[2019-11-25 11:06] LABS: BASO % 1.3 % (0-2.0); EOS % 4.3 % (0-4.5); HEMOGLOBIN 11.4 GM/dL (11.7-16.9); LYMPH % 23.6 % (8-40); MCH 31.2 pg (25.7-33.7); MCHC 33.6 g/dl (32.0-35.9); MEAN CELL VOLUME 92.9 fl (80-96); NEUT % 60.8 % (42.8-82.8); PLATELET COUNT 669 K/MM3 (134-434); RBC 3.66 M/mm3 (4.00-5.60); WHITE BLOOD COUNT 9.9 K/mm3 (4.0-10.0)
[2019-11-25 11:27] LABS: ALBUMIN 2.2 g/dl (3.4-5.0); BILIRUBIN,TOTAL 0.2 mg/dL (0.2-1); BLOOD UREA NITROGEN 6.7 mg/dL (7-18); CALCIUM 7.9 mg/dL (8.5-10.1); CREATININE 0.6 mg/dL (0.55-1.3); TOT PROT 5.4 g/dl (6.4-8.2)
--- NOTE | 2019-11-25 12:05 | PN ---
Progress Note, Physician Chief Complaint: Acute perforated diverticulitis with Hinchey 1 pericolic abscess Hyponatremia Etoh abuse Anemia COPD Hematuria Hypokalemia History of Present Illness: NAD CTAP with contrast reviewed Awaiting insurance auth for pt to go to [facility] Pt to go to [facility] with 14 days of IV ceftriaxone 2 gm once a day + PO flagyl TID - Current Medication List Current Medications: Active Medications Acetaminophen (Tylenol -) 650 mg PO Q6H PRN PRN Reason: PAIN LEVEL 4 - 6 Last Admin: 11/25/19 09:49 Dose: 650 mg Documented by: Cyanocobalamin (Vitamin B12 Injection -) 1,000 mcg IM DAILY [facility] Last Admin: 11/25/19 09:53 Dose: 1,000 mcg Documented by: Folic Acid (Folic Acid -) 1 mg PO DAILY [facility] Last Admin: 11/25/19 09:48 Dose: 1 mg Documented by: Gabapentin (Neurontin -) 100 mg PO BID [facility] Last Admin: 11/25/19 09:50 Dose: 100 mg Documented by: Heparin Sodium (Porcine) (Heparin -) 5,000 unit SQ BID [facility] Last Admin: 11/25/19 10:35 Dose: Not Given Documented by: Ceftriaxone Sodium 2 gm/ (Dextrose) 100 mls @ 200 mls/hr IVPB DAILY [facility]; Protocol Last Admin: 11/25/19 09:46 Dose: 200 mls/hr Documented by: Metronidazole (Flagyl 500mg Premixed Ivpb -) 500 mg in 100 mls @ 100 mls/hr IVPB Q8H-IV [facility] Last Admin: 11/25/19 02:25 Dose: 100 mls/hr Documented by: Multivitamins/Minerals/Vitamin C (Tab-A-Vit -) 1 tab PO DAILY [facility] Last Admin: 11/25/19 09:48 Dose: 1 tab Documented by: Nicotine (Nicoderm Patch -) 21 mg TD DAILY [facility] Last Admin: 11/25/19 09:52 Dose: Not Given Documented by: Ondansetron HCl (Zofran Odt -) 4 mg SL Q8H PRN PRN Reason: NAUSEA AND/OR VOMITING Sodium Chloride (Sodium Chloride Tablet -) 1 gm PO DAILY [facility] Last Admin: 11/25/19 09:48 Dose: 1 gm Documented by: Thiamine HCl (Vitamin B1 -) 100 mg PO DAILY [facility] Last Admin: 11/25/19 09:53 Dose: 100 mg Documented by: - Objective Vital Signs: Vital Signs Temperature 100.3 F H 11/25/19 06:00 Pulse Rate 80 11/25/19 06:00 Respiratory Rate 185 H 11/25/19 06:00 Blood Pressure 103/56 L 11/25/19 06:00 O2 Sat by Pulse Oximetry (%) 100 11/25/19 09:00 Constitutional: Yes: No Distress, Calm, Thin Cardiovascular: Yes: Regular Rate and Rhythm Respiratory: Yes: Regular, CTA Bilaterally Gastrointestinal: Yes: WNL Genitourinary: Yes: WNL Musculoskeletal: Yes: Muscle Weakness Extremities: Yes: WNL Edema: No Peripheral Pulses WNL: Yes Neurological: Yes: Alert, Oriented Psychiatric: Yes: Alert, Oriented Labs: CBC, BMP 11/25/19 10:30 11/25/19 10:30 INR, PTT INR 1.22 (0.83-1.09) H 11/11/19 17:18 Problem List - Problems (1) Neuropathic pain of both feet Assessment/Plan: -likely 2/2 to chronic alcohol use -Also low in B12 -Cyanocobalamine 1g IM daily until d/c then transition to 2500 mcg SL daily Problems reviewed: Yes Code(s): G57.93 - UNSPECIFIED MONONEUROPATHY OF BILATERAL LOWER LIMBS Assessment/Plan (1) Diverticulitis of large intestine with complication Assessment/Plan: -CTAP:11/14/19:Interval worsening of previously described mid sigmoid colon diverticulitis/colitis now involving the rest of the distal sigmoid colon. There is interval worsening in the degree of wall thickening at the mid sigmoid colon resulting in partial to almost complete obstruction as well as interval increase in size of previously visualized adjacent collection/abscess. No extraluminal air is identified.. Interval small amount of free fluid in the right upper quadrant and paracolic gutter. Mild thickening of the urinary bladder wall likely due to partial distention or surrounding inflammatory changes. Correlate clinically to rule out cystitis. A small right inguinal hernia containing a small bowel loop in its upper portion is again seen surgery following -Tolerating po [place]nake -Repeat CTAP with contrast 11/20/19:Since a prior study of 11/26/2019, a perisigmoid diverticular abscess has somewhat decreased in size now measuring approximately 2.9 x 2.5 x 1.9 cm. The degree of sigmoid diverticulitis also appears somewhat improved. No new fluid collections have developed within the abdomen or pelvis. There is also been improvement in small bilateral pleural effusions with basilar consolidation/atelectasis. No significant fluid is now noted. Mild atelectatic changes remain bilaterally. -Surgery on board -Continue IV abx -ID consult appreciated Code(s): K57.32 - DVTRCLI OF LG INT W/O PERFORATION OR ABSCESS W/O BLEEDING (2) Hypokalemia Assessment/Plan: -Resolved -Nephrology on board -monitor trend Code(s): E87.6 - HYPOKALEMIA (3) Hyponatremia Assessment/Plan: -stable -Nephrology on board -NACl tabs Code(s): E87.1 - HYPO-OSMOLALITY AND HYPONATREMIA (4) Anemia Assessment/Plan: -stable Code(s): D64.9 - ANEMIA, UNSPECIFIED (5) COPD (chronic obstructive pulmonary disease) Assessment/Plan: -Stable -bronchodilators Code(s): J44.9 - CHRONIC OBSTRUCTIVE PULMONARY DISEASE, UNSPECIFIED Qualifiers: COPD type: unspecified COPD Qualified Code(s): J44.9 - Chronic obstructive pulmonary disease, unspecified
[2019-11-25] MEDS ORDERED: POTASSIUM CHLORIDE TABS 20 MEQ TABLET.ER (FP) PO ONE ×2 (12:24→20:00)
--- NOTE | 2019-11-25 12:27 | PN ---
Progress Note, Physician History of Present Illness: Pt seen and examined at bedside. he is tolerating diet. - Current Medication List Current Medications: Active Medications Acetaminophen (Tylenol -) 650 mg PO Q6H PRN PRN Reason: PAIN LEVEL 4 - 6 Last Admin: 11/25/19 09:49 Dose: 650 mg Documented by: Cyanocobalamin (Vitamin B12 Injection -) 1,000 mcg IM DAILY [facility] Last Admin: 11/25/19 09:53 Dose: 1,000 mcg Documented by: Folic Acid (Folic Acid -) 1 mg PO DAILY [facility] Last Admin: 11/25/19 09:48 Dose: 1 mg Documented by: Gabapentin (Neurontin -) 100 mg PO BID [facility] Last Admin: 11/25/19 09:50 Dose: 100 mg Documented by: Heparin Sodium (Porcine) (Heparin -) 5,000 unit SQ BID [facility] Last Admin: 11/25/19 10:35 Dose: Not Given Documented by: Ceftriaxone Sodium 2 gm/ (Dextrose) 100 mls @ 200 mls/hr IVPB DAILY [facility]; Protocol Last Admin: 11/25/19 09:46 Dose: 200 mls/hr Documented by: Metronidazole (Flagyl 500mg Premixed Ivpb -) 500 mg in 100 mls @ 100 mls/hr IVPB Q8H-IV [facility] Last Admin: 11/25/19 02:25 Dose: 100 mls/hr Documented by: Levothyroxine Sodium (Synthroid -) 25 mcg PO DAILY@0700 [facility] Multivitamins/Minerals/Vitamin C (Tab-A-Vit -) 1 tab PO DAILY [facility] Last Admin: 11/25/19 09:48 Dose: 1 tab Documented by: Nicotine (Nicoderm Patch -) 21 mg TD DAILY [facility] Last Admin: 11/25/19 09:52 Dose: Not Given Documented by: Ondansetron HCl (Zofran Odt -) 4 mg SL Q8H PRN PRN Reason: NAUSEA AND/OR VOMITING Potassium Chloride (K-Dur -) 40 meq PO ONCE ONE Stop: 11/25/19 12:25 Potassium Chloride (K-Dur -) 40 meq PO ONCE ONE Stop: 11/25/19 20:01 Sodium Chloride (Sodium Chloride Tablet -) 1 gm PO DAILY [facility] Last Admin: 11/25/19 09:48 Dose: 1 gm Documented by: Thiamine HCl (Vitamin B1 -) 100 mg PO DAILY [facility] Last Admin: 11/25/19 09:53 Dose: 100 mg Documented by: - Objective Vital Signs: Vital Signs Temperature 100.3 F H 11/25/19 06:00 Pulse Rate 80 11/25/19 06:00 Respiratory Rate 185 H 11/25/19 06:00 Blood Pressure 103/56 L 11/25/19 06:00 O2 Sat by Pulse Oximetry (%) 100 11/25/19 09:00 Constitutional: Yes: Calm Eyes: Yes: Conjunctiva Clear HENT: Yes: Atraumatic Neck: Yes: Supple Cardiovascular: Yes: S1, S2 Respiratory: Yes: CTA Bilaterally Gastrointestinal: Yes: WNL, Soft Genitourinary: Yes: WNL Musculoskeletal: Yes: WNL Edema: No Neurological: Yes: Oriented Psychiatric: Yes: Oriented Labs: CBC, BMP 11/25/19 10:30 11/25/19 10:30 INR, PTT INR 1.22 (0.83-1.09) H 11/11/19 17:18 Problem List - Problems (1) Hypokalemia Code(s): E87.6 - HYPOKALEMIA (2) Hyponatremia Code(s): E87.1 - HYPO-OSMOLALITY AND HYPONATREMIA (3) Abdominal pain Code(s): R10.9 - UNSPECIFIED ABDOMINAL PAIN Qualifiers: Abdominal location: lower abdomen, unspecified Qualified Code(s): R10.30 - Lower abdominal pain, unspecified Assessment/Plan Current Medications Generic Name Dose Route Start Last Admin Trade Name Manjinderq PRN Reason Stop Dose Admin Acetaminophen 650 mg 11/19/19 15:34 11/25/19 09:49 Tylenol - PO 650 mg Q6H PRN Administration PAIN LEVEL 4 - 6 Cyanocobalamin 1,000 mcg 11/21/19 13:30 11/25/19 09:53 Vitamin B12 Injection - IM 1,000 mcg DAILY [facility] Administration Folic Acid 1 mg 11/18/19 10:00 11/25/19 09:48 Folic Acid - PO 1 mg DAILY [facility] Administration Gabapentin 100 mg 11/23/19 22:00 11/25/19 09:50 Neurontin - PO 100 mg BID [facility] Administration Heparin Sodium (Porcine) 5,000 unit 11/17/19 22:00 11/25/19 10:35 Heparin - SQ Not Given BID [facility] Ceftriaxone Sodium 2 gm/ 100 mls @ 200 mls/hr 11/24/19 15:00 11/25/19 09:46 Dextrose IVPB 200 mls/hr DAILY [facility] Administration Protocol Metronidazole 500 mg in 100 mls @ 100 mls/hr 11/25/19 02:00 11/25/19 02:25 Flagyl 500mg Premixed Ivpb - IVPB 100 mls/hr Q8H-IV [facility] Administration Levothyroxine Sodium 25 mcg 11/26/19 07:00 Synthroid - PO DAILY@0700 [facility] Multivitamins/Minerals/Vitamin C 1 tab 11/18/19 10:00 11/25/19 09:48 Tab-A-Vit - PO 1 tab DAILY [facility] Administration Nicotine 21 mg 11/18/19 10:00 11/25/19 09:52 Nicoderm Patch - TD Not Given DAILY [facility] Ondansetron HCl 4 mg 11/22/19 18:50 Zofran Odt - SL Q8H PRN NAUSEA AND/OR VOMITING Potassium Chloride 40 meq 11/25/19 12:24 K-Dur - PO 11/25/19 12:25 ONCE ONE Potassium Chloride 40 meq 11/25/19 20:00 K-Dur - PO 11/25/19 20:01 ONCE ONE Sodium Chloride 1 gm 11/18/19 17:30 11/25/19 09:48 Sodium Chloride Tablet - PO 1 gm DAILY [facility] Administration Thiamine HCl 100 mg 11/18/19 10:00 11/25/19 09:53 Vitamin B1 - PO 100 mg DAILY [facility] Administration Impression 1. hyponatremia 2. pericolonic abscess 3. etoh abuse 4. anemia 5. copd 6. microscopic hematuria 7. active smoker 8. hypokalemia Plan - replace potassium - repeat labs in am - check mag and K level in am as well - encourage po intake - discussed with medical team
[2019-11-25 15:18] VITALS: BP 116/77; PULSE 87; TEMP 97.9
[2019-11-26] MEDS ORDERED: LEVOTHYROXINE NA 25 MCG TABLET (FP) PO SCH (07:00)
== END 2019-11-25 17:03 | DRG 244 ==
LOC: JER 14:22 → JERBED 19:50 → J4W 11-12 12:57 → J5S 11-17 17:14
PROVIDERS: ADMIT Internal Medicine; ATTEND Family Medicine
PROC: 02HV33Z Insertion of Infusion Device into Superior Vena Cava, Percutaneous Approach (ICD-10-PCS; principal; 2019-11-25)
PROC: B518ZZA Fluoroscopy of Superior Vena Cava, Guidance (ICD-10-PCS; 2019-11-25)
DX: K57.20 Diverticulitis of large intestine with perforation and abscess without bleeding (principal); J44.9 Chronic obstructive pulmonary disease, unspecified; M54.9 Dorsalgia, unspecified; E87.6 Hypokalemia; F10.20 Alcohol dependence, uncomplicated; E03.8 Other specified hypothyroidism; F17.210 Nicotine dependence, cigarettes, uncomplicated; D72.829 Elevated white blood cell count, unspecified; E83.51 Hypocalcemia; E87.8 Other disorders of electrolyte and fluid balance, not elsewhere classified; E87.1 Hypo-osmolality and hyponatremia; Z59.0 Homelessness; R00.0 Tachycardia, unspecified; F20.9 Schizophrenia, unspecified; M54.5 Low back pain; E03.9 Hypothyroidism, unspecified; L02.91 Cutaneous abscess, unspecified; K40.20 Bilateral inguinal hernia, without obstruction or gangrene, not specified as recurrent; R31.29 Other microscopic hematuria; J18.9 Pneumonia, unspecified organism; J90 Pleural effusion, not elsewhere classified; G57.93 Unspecified mononeuropathy of bilateral lower limbs
CPT/HCPCS: 36415; 36569; 71045-TC-FY; 74177-TC; 77001-TC-FY; 80048; 80053; 80307; 81003; 82436; 82550; 82962; 83605; 83735; 83930; 83935; 84133; 84300; 84484; 85025; 85027; 85610; 85730; 86140; 87040; 87086; 93005; 93010; 97116-GP; 97161-GP; 99285-25; C1751; G0480; J1644; J3480; Q9967

== ENCOUNTER 2021-07-14 17:45 | Inpatient (IN) | payer OTHER ==
[2021-07-14] MEDS ORDERED: LACTATED RINGERS SOLUTION 1,000 ML IV STA ×2 (18:15)
[2021-07-14 18:39] VITALS: BMI 24.5
[2021-07-14 19:15] LABS: VENOUS PCO2 38.6 mmHg (38-52); VENOUS PH 7.356 (7.310-7.410)
[2021-07-14 19:21] LABS: EOS % 1.3 % (0-4.5); HEMATOCRIT 33.8 % (35.4-49); HEMOGLOBIN 11.5 GM/dL (11.7-16.9); LYMPH % 24.7 % (8-40); MCH 29.6 pg (25.7-33.7); MEAN CELL VOLUME 87.1 fl (80-96); MEAN PLT VOLUME 6.5 fl (7.5-11.1); PLATELET COUNT 467 10^3/uL (134-434); RBC 3.88 M/mm3 (4.00-5.60); WHITE BLOOD COUNT 7.8 K/mm3 (4.0-10.0)
[2021-07-14 19:27] LABS: INR 1.37 (0.83-1.09); PROTHROMBIN TIME (PATIENT) 15.4 SEC (9.7-13.0)
[2021-07-14 19:30] LABS: ACTIVATED PTT 38.7 SECONDS (25.2-36.5)
[2021-07-14 19:31] LABS: ALBUMIN 3.8 g/dl (3.4-5.0); BLOOD UREA NITROGEN 34.2 mg/dL (7-18); CALCIUM 9.3 mg/dL (8.5-10.1)
[2021-07-14 19:34] LABS: CREATININE 1.8 mg/dL (0.55-1.3)
[2021-07-14 19:36] LABS: BILIRUBIN,TOTAL 0.5 mg/dL (0.2-1); TOT PROT 6.8 g/dl (6.4-8.2)
[2021-07-14 19:56] LABS: PH,URINE 5.5 (5.0-8.0); URINE APPEARANCE CLEAR; URINE BILIRUBIN NEGATIVE (NEGATIVE); URINE COLOR DK YELLOW; URINE GLUCOSE (UA) NEGATIVE (NEGATIVE); URINE KETONE 1+ (NEGATIVE); URINE LEUK ESTERASE NEGATIVE (NEGATIVE); URINE NITRITE NEGATIVE (NEGATIVE); URINE PROTEIN NEGATIVE (NEGATIVE)
[2021-07-15 07:20] LABS: BASO % 1.3 % (0-2.0); EOS % 2.2 % (0-4.5); HEMOGLOBIN 11.3 GM/dL (11.7-16.9); LYMPH % 26.4 % (8-40); MCH 30.1 pg (25.7-33.7); MCHC 34.2 g/dl (32.0-35.9); MEAN CELL VOLUME 88.1 fl (80-96); MEAN PLT VOLUME 6.5 fl (7.5-11.1); MONO % 8.7 % (3.8-10.2); NEUT % 61.4 % (42.8-82.8); PLATELET COUNT 424 10^3/uL (134-434); RBC 3.75 M/mm3 (4.00-5.60); RDW 14.6 % (11.9-15.9); WHITE BLOOD COUNT 7.3 K/mm3 (4.0-10.0)
[2021-07-15 07:27] LABS: INR 1.4 (0.83-1.09); PROTHROMBIN TIME (PATIENT) 15.7 SEC (9.7-13.0)
[2021-07-15 07:30] LABS: ACTIVATED PTT 34.6 SECONDS (25.2-36.5)
[2021-07-15 07:40] LABS: CALCIUM 8.7 mg/dL (8.5-10.1)
[2021-07-15 07:42] LABS: ALBUMIN 3.1 g/dl (3.4-5.0); BLOOD UREA NITROGEN 31.9 mg/dL (7-18); MAGNESIUM 2.3 mg/dL (1.8-2.4)
[2021-07-15 07:44] LABS: CREATININE 1.2 mg/dL (0.55-1.3)
[2021-07-15 07:45] LABS: PHOSPHOROUS 3.7 mg/dL (2.5-4.9)
[2021-07-15 07:46] LABS: BILIRUBIN,TOTAL 0.4 mg/dL (0.2-1); TOT PROT 5.8 g/dl (6.4-8.2)
[2021-07-15] MEDS: SODIUM CHLORIDE 1,000 ML IV SCH (08:31)
[2021-07-15 09:08] LABS: METHADONE, UR NEGATIVE (NEGATIVE); OPIATES, URI NEGATIVE (NEGATIVE); PHENCYCLIDINE,URINE NEGATIVE (NEGATIVE); URINE BARBITURATES NEGATIVE (NEGATIVE); URINE BENZODIAZEPINES NEGATIVE (NEGATIVE)
[2021-07-15 09:12] LABS: COCAINE, UR NEGATIVE (NEGATIVE); URINE AMPHETAMINES NEGATIVE (NEGATIVE)
[2021-07-15 10:29] LABS: RETICULOCYTES 0.77 % (0.5-1.5)
[2021-07-15 10:42] LABS: IRON SERUM 68 ug/dL (50-175); TOTAL IRON BINDING CAPACITY 197 ug/dL (250-450)
[2021-07-15 10:45] LABS: LDH 227 U/L (87-246)
[2021-07-15] MEDS: HEPARIN NA (PORCINE) 5,000 UNITS/ML 1ML VIAL SQ SCH (21:29)
[2021-07-16] MEDS: SODIUM CHLORIDE 1,000 ML IV SCH (03:47)
[2021-07-16] MEDS: HEPARIN NA (PORCINE) 5,000 UNITS/ML 1ML VIAL SQ SCH ×3 (05:47→21:07)
[2021-07-16 08:13] LABS: HEMATOCRIT 36.1 % (35.4-49); HEMOGLOBIN 12.5 GM/dL (11.7-16.9); MCH 30.1 pg (25.7-33.7); MCHC 34.5 g/dl (32.0-35.9); MEAN CELL VOLUME 87.3 fl (80-96); MEAN PLT VOLUME 6.5 fl (7.5-11.1); PLATELET COUNT 446 10^3/uL (134-434); RBC 4.14 M/mm3 (4.00-5.60); WHITE BLOOD COUNT 7.2 K/mm3 (4.0-10.0)
[2021-07-16 08:33] LABS: CHLORIDE 97 mmol/L (98-107); SODIUM 131 mmol/L (136-145)
[2021-07-16 08:40] LABS: ALBUMIN 3.2 g/dl (3.4-5.0); ANION GAP 10 MMOL/L (8-16); CALCIUM 8.5 mg/dL (8.5-10.1); CO2 24 mmol/L (21-32)
[2021-07-16 08:41] LABS: BLOOD UREA NITROGEN 13.5 mg/dL (7-18); SGPT/ALT 47 U/L (13-61)
[2021-07-16 08:43] LABS: BILIRUBIN,TOTAL 0.5 mg/dL (0.2-1); TOT PROT 6.2 g/dl (6.4-8.2)
[2021-07-16 08:44] LABS: ALK PHOS 65 U/L (45-117); CREATININE 0.7 mg/dL (0.55-1.3); SGOT/AST 89 U/L (15-37)
[2021-07-16 09:01] LABS: GLUCOSE,RANDOM 49 mg/dL (74-106)
[2021-07-16] MEDS: DEXTROSE 5%-NORMAL SALINE 1,000 ML IV SCH ×2 (09:33→23:56)
[2021-07-16] MEDS: TAMSULOSIN HCL 0.4 MG CAP PO SCH ×2 (15:03→21:07)
[2021-07-17] MEDS: HEPARIN NA (PORCINE) 5,000 UNITS/ML 1ML VIAL SQ SCH ×2 (06:21→14:18)
[2021-07-17] MEDS ORDERED: TAMSULOSIN HCL 0.4 MG CAP PO SCH (08:30)
[2021-07-17] MEDS: TAMSULOSIN HCL 0.4 MG CAP PO SCH (09:00)
[2021-07-17] MEDS ORDERED: FINASTERIDE 5 MG TABLET (FP) PO SCH (10:00)
[2021-07-17] MEDS ORDERED: ARIPiprazole 10 MG TABLET PO SCH (11:00)
[2021-07-17] MEDS ORDERED: LACTOBACILLUS ACIDOPHILUS 1 TABLET PO SCH (11:00)
[2021-07-17] MEDS ORDERED: THIAMINE HCL 100 MG TABLET (FP) PO SCH (11:00)
[2021-07-17] MEDS ORDERED: SODIUM CHLORIDE 1 GM TABLET PO SCH (11:00)
[2021-07-17] MEDS ORDERED: ESCITALOPRAM OXALATE 10 MG TABLET PO SCH (11:00)
[2021-07-17] MEDS ORDERED: MULTIVITAMINS (DAILY MVI) TABLET (FP) PO SCH (11:00)
[2021-07-17] MEDS ORDERED: AMANTADINE HCL 100 MG TABLET PO SCH (11:00)
[2021-07-17] MEDS ORDERED: BENZTROPINE MESYLATE 1 MG TABLET PO SCH (11:15)
[2021-07-17] MEDS: DEXTROSE 5%-NORMAL SALINE 1,000 ML IV SCH (11:23)
[2021-07-17] MEDS: GABAPENTIN 300 MG CAPSULE PO SCH ×2 (11:25→14:15)
[2021-07-17] MEDS: DIVALPROEX SODIUM 250 MG TABLET E.C. PO SCH ×2 (11:26→14:13)
[2021-07-17 13:51] VITALS: BP 137/81; PULSE 84; TEMP 98.2
[2021-07-17] MEDS ORDERED: LOPERAMIDE HCL 2 MG CAPSULE PO SCH (14:00)
[2021-07-17] MEDS: ALBUTEROL SO4 HFA INHALER IH SCH ×2 (14:18→16:07)
[2021-07-18] MEDS ORDERED: LEVOTHYROXINE NA 50 MCG TABLET (FP) PO SCH (07:00)
== END 2021-07-17 17:39 | DRG 351 ==
LOC: JER 17:45 → JERBED 23:41 → J7W 07-15 08:00
PROVIDERS: ADMIT Internal Medicine
DX: M62.82 Rhabdomyolysis (principal); G93.41 Metabolic encephalopathy; N17.9 Acute kidney failure, unspecified; K76.0 Fatty (change of) liver, not elsewhere classified; F20.9 Schizophrenia, unspecified; F31.9 Bipolar disorder, unspecified; J44.9 Chronic obstructive pulmonary disease, unspecified; W19.XXXA Unspecified fall, initial encounter; Y93.9 Activity, unspecified; Y92.9 Unspecified place or not applicable; Y99.9 Unspecified external cause status; F17.210 Nicotine dependence, cigarettes, uncomplicated; E78.5 Hyperlipidemia, unspecified; F10.10 Alcohol abuse, uncomplicated; Y90.0 Blood alcohol level of less than 20 mg/100 ml; E03.9 Hypothyroidism, unspecified; G62.9 Polyneuropathy, unspecified
CPT/HCPCS: 36415; 70450-TC; 71045-TC-FY; 71250-TC; 74176-TC; 80053; 80307; 81003; 82550; 82553; 82607; 82728; 82746; 82803; 82962; 83540; 83550; 83605; 83615; 83735; 84100; 84443; 84484; 85025; 85027; 85045; 85610; 85730; 87040; 87086; 87804; 93005; 93010; 97116-GP; 97161-GP; 99285-25; C9803; J1644; U0003; U0005

== ENCOUNTER 2021-10-09 17:16 | Inpatient (IN) | payer OTHER ==
[2021-10-09] MEDS ORDERED: ACETAMINOPHEN 1000 MG/100 ML BAG IVPB ONE (17:43)
[2021-10-09 17:48] VITALS: BMI 21.6
[2021-10-09] MEDS ORDERED: ACETAMINOPHEN INJECTION 100 ML IVPB ONE (18:23)
[2021-10-09] MEDS ORDERED: morphine CARPU-JECT 4 MG/1 ML DISP.SYRIN IVPUSH ONE (18:56)
[2021-10-09 19:19] LABS: BASO % 0.6 % (0-2.0); EOS % 1.2 % (0-4.5); HEMATOCRIT 35.5 % (35.4-49); HEMOGLOBIN 11.5 GM/dL (11.7-16.9); LYMPH % 34.1 % (8-40); MCH 29.1 pg (25.7-33.7); MCHC 32.4 g/dl (32.0-35.9); MEAN PLT VOLUME 6.9 fl (7.5-11.1); MONO % 11.1 % (3.8-10.2); PLATELET COUNT 454 10^3/uL (134-434); RBC 3.95 M/mm3 (4.00-5.60); RDW 14.7 % (11.9-15.9)
[2021-10-09 19:36] LABS: CHLORIDE 101 mmol/L (98-107); SODIUM 140 mmol/L (136-145)
[2021-10-09 19:40] LABS: ALBUMIN 2.9 g/dl (3.4-5.0); ANION GAP 7 MMOL/L (8-16); BLOOD UREA NITROGEN 16.3 mg/dL (7-18); CO2 31 mmol/L (21-32); GLUCOSE,RANDOM 95 mg/dL (74-106)
[2021-10-09 19:43] LABS: CREATININE 0.6 mg/dL (0.55-1.3); SGOT/AST 9 U/L (15-37); SGPT/ALT 13 U/L (13-61)
[2021-10-09 19:45] LABS: BILIRUBIN,TOTAL 0.4 mg/dL (0.2-1); TOT PROT 5.8 g/dl (6.4-8.2)
[2021-10-09 19:46] LABS: ALK PHOS 59 U/L (45-117)
[2021-10-09 22:02] LABS: URINE APPEARANCE CLEAR; URINE BILIRUBIN NEGATIVE (NEGATIVE); URINE COLOR YELLOW; URINE GLUCOSE (UA) NEGATIVE (NEGATIVE); URINE KETONE 1+ (NEGATIVE); URINE LEUK ESTERASE NEGATIVE (NEGATIVE); URINE NITRITE NEGATIVE (NEGATIVE); URINE PROTEIN NEGATIVE (NEGATIVE)
[2021-10-09] MEDS ORDERED: FOLIC ACID 5 MG/1 ML SQ ONE (22:21)
[2021-10-09 22:43] LABS: OPIATES, URI NEGATIVE (NEGATIVE)
[2021-10-09 22:44] LABS: COCAINE, UR NEGATIVE (NEGATIVE); METHADONE, UR NEGATIVE (NEGATIVE); PHENCYCLIDINE,URINE NEGATIVE (NEGATIVE); URINE AMPHETAMINES NEGATIVE (NEGATIVE); URINE BARBITURATES NEGATIVE (NEGATIVE); URINE BENZODIAZEPINES NEGATIVE (NEGATIVE)
[2021-10-09] MEDS ORDERED: SODIUM CHLORIDE 1,000 ML IV SCH (22:45)
[2021-10-09] MEDS ORDERED: LORazepam 1 MG TABLET PO PRN (23:29)
[2021-10-10] MEDS ORDERED: LACTULOSE 20 GM/30 ML UDC (FOR RECTAL USE ONLY) PR ONE (02:46)
[2021-10-10] MEDS ORDERED: LACTULOSE 20 GM/30 ML UDC (FOR ORAL USE ONLY) PO ONE ×2 (03:16→15:03)
[2021-10-10] MEDS ORDERED: LOPERAMIDE HCL 2 MG CAPSULE PO PRN (03:22)
[2021-10-10] MEDS ORDERED: ALUMINUM HYDROXIDE PO PRN (03:22)
[2021-10-10] MEDS ORDERED: [UNRECOGNIZED DRUG - OTHER] PO PRN (03:22)
[2021-10-10] MEDS: ALBUTEROL SO4 HFA INHALER IH SCH ×2 (04:34→06:33)
[2021-10-10] MEDS: DIVALPROEX SODIUM 250 MG TABLET E.C. PO SCH ×3 (05:51→22:13)
[2021-10-10] MEDS: GABAPENTIN 300 MG CAPSULE PO SCH ×2 (05:51→14:35)
[2021-10-10] MEDS: LORazepam 1 MG TABLET PO SCH ×2 (05:51→11:40)
[2021-10-10] MEDS: LEVOTHYROXINE NA 25 MCG TABLET (FP) PO SCH (06:00)
[2021-10-10] MEDS: AMANTADINE HCL 100 MG TABLET PO SCH ×2 (06:00→16:10)
[2021-10-10] MEDS ORDERED: ALBUTEROL SO4 HFA INHALER IH PRN (07:16)
[2021-10-10] MEDS: LACTOBACILLUS ACIDOPHILUS 1 TABLET PO SCH (08:37)
[2021-10-10] MEDS: TAMSULOSIN HCL 0.4 MG CAP PO SCH (08:37)
[2021-10-10 09:16] LABS: HEMATOCRIT 33.6 % (35.4-49); MCH 29.3 pg (25.7-33.7); MCHC 32.8 g/dl (32.0-35.9); MEAN CELL VOLUME 89.2 fl (80-96); MEAN PLT VOLUME 7.1 fl (7.5-11.1); PLATELET COUNT 435 10^3/uL (134-434); RBC 3.77 M/mm3 (4.00-5.60); RDW 14.5 % (11.9-15.9); WHITE BLOOD COUNT 7.2 K/mm3 (4.0-10.0)
[2021-10-10] MEDS ORDERED: ARTIFICIAL TEARS (POLYVINYL ALCOHOL) OPTH DROPS OU SCH (10:00)
[2021-10-10] MEDS ORDERED: ZINC SULFATE 220 MG CAPSULE (FP) PO SCH (10:00)
[2021-10-10] MEDS ORDERED: MULTIVITAMINS (DAILY MVI) TABLET (FP) PO SCH (10:00)
[2021-10-10] MEDS ORDERED: ASCORBIC ACID 500 MG TABLET (FP) PO SCH (10:00)
[2021-10-10 10:09] LABS: CALCIUM 8.5 mg/dL (8.5-10.1)
[2021-10-10 10:10] LABS: ALBUMIN 2.6 g/dl (3.4-5.0)
[2021-10-10 10:12] LABS: PHOSPHOROUS 3.6 mg/dL (2.5-4.9)
[2021-10-10 10:14] LABS: CREATININE 0.4 mg/dL (0.55-1.3)
[2021-10-10 10:16] LABS: TOT PROT 5.3 g/dl (6.4-8.2)
[2021-10-10] MEDS: BENZTROPINE MESYLATE 1 MG TABLET PO SCH (10:38)
[2021-10-10] MEDS: ENOXAPARIN NA (PORCINE) 40 MG/0.4 ML DISP.SYRIN SQ SCH (10:39)
[2021-10-10] MEDS: ESCITALOPRAM OXALATE 10 MG TABLET PO SCH (10:39)
[2021-10-10] MEDS: FERROUS SO4 325 MG TABLET (FP) PO SCH (10:39)
[2021-10-10] MEDS: THIAMINE HCL 200 MG/2 ML VIAL IVPB SCH (10:40)
[2021-10-10] MEDS: FINASTERIDE 5 MG TABLET (FP) PO SCH (10:40)
[2021-10-10] MEDS: ARIPiprazole 10 MG TABLET PO SCH (10:41)
[2021-10-10] MEDS: SODIUM BICARBONATE 650 MG TABLET PO SCH (10:41)
[2021-10-10 10:51] LABS: BILIRUBIN,TOTAL 0.3 mg/dL (0.2-1)
[2021-10-10] MEDS ORDERED: LACTULOSE 20 GM/30 ML UDC (FOR ORAL USE ONLY) PO PRN (11:05)
[2021-10-10] MEDS: SODIUM CHLORIDE 1,000 ML IV SCH (12:38)
[2021-10-10 12:55] LABS: ALLENS TEST POSITIVE; ARTERIAL BLD GAS O2 SATURATION 92.2 % (95-98); ARTERIAL BLOOD GAS BASE EXCESS 1.6 mmol/L (-2-2); ARTERIAL BLOOD GAS PO2 62.8 mmHg (80-100)
[2021-10-10] MEDS ORDERED: LORazepam 2 MG/ML SDV VIAL IVPUSH PRN (15:23)
[2021-10-10] MEDS: AMMONIUM LACTATE 12% LOTION 225 GM BOTTLE TP SCH (16:07)
[2021-10-10] MEDS: ZINC OXIDE 20% TOPICAL OINTMENT 30 GM TUBE TP SCH (16:07)
[2021-10-10] MEDS: PRAMOXINE HCL 1% (SARNA SENSITIVE) 222 ML BOTTLE TP SCH ×2 (16:08→22:29)
[2021-10-10] MEDS: LACTULOSE 20 GM/30 ML UDC (FOR ORAL USE ONLY) PO SCH ×2 (16:11→22:13)
[2021-10-11] MEDS ORDERED: LORazepam 0.5 MG TABLET PO PRN
[2021-10-11] MEDS ORDERED: LORazepam 1 MG TABLET PO SCH (05:00)
[2021-10-11] MEDS: LACTULOSE 20 GM/30 ML UDC (FOR ORAL USE ONLY) PO SCH ×3 (06:36→22:02)
[2021-10-11] MEDS: LEVOTHYROXINE NA 25 MCG TABLET (FP) PO SCH (06:37)
[2021-10-11] MEDS: AMANTADINE HCL 100 MG TABLET PO SCH ×2 (06:37→17:57)
[2021-10-11] MEDS: DIVALPROEX SODIUM 250 MG TABLET E.C. PO SCH ×3 (06:37→22:02)
[2021-10-11] MEDS ORDERED: ARIPiprazole 5 MG TABLET ONE (09:11)
[2021-10-11] MEDS: TAMSULOSIN HCL 0.4 MG CAP PO SCH (09:52)
[2021-10-11] MEDS: LACTOBACILLUS ACIDOPHILUS 1 TABLET PO SCH (09:52)
[2021-10-11] MEDS: SODIUM BICARBONATE 650 MG TABLET PO SCH (09:53)
[2021-10-11] MEDS: FERROUS SO4 325 MG TABLET (FP) PO SCH (09:53)
[2021-10-11] MEDS: ARIPiprazole 10 MG TABLET PO SCH (09:53)
[2021-10-11] MEDS: ENOXAPARIN NA (PORCINE) 40 MG/0.4 ML DISP.SYRIN SQ SCH (09:54)
[2021-10-11] MEDS: ESCITALOPRAM OXALATE 10 MG TABLET PO SCH (09:54)
[2021-10-11] MEDS: FINASTERIDE 5 MG TABLET (FP) PO SCH (09:54)
[2021-10-11] MEDS: BENZTROPINE MESYLATE 1 MG TABLET PO SCH (09:55)
[2021-10-11] MEDS: AMMONIUM LACTATE 12% LOTION 225 GM BOTTLE TP SCH (09:55)
[2021-10-11] MEDS: FOLIC ACID 1 MG TABLET (FP) PO SCH (09:55)
[2021-10-11] MEDS: SODIUM CHLORIDE 1,000 ML IV SCH ×2 (09:56→12:55)
[2021-10-11] MEDS: THIAMINE HCL 200 MG/2 ML VIAL IVPB SCH (09:56)
[2021-10-11] MEDS: ZINC OXIDE 20% TOPICAL OINTMENT 30 GM TUBE TP SCH (09:56)
[2021-10-11] MEDS: PRAMOXINE HCL 1% (SARNA SENSITIVE) 222 ML BOTTLE TP SCH ×2 (09:56→22:02)
[2021-10-11 11:10] LABS: BASO % 0.7 % (0-2.0); EOS % 0.7 % (0-4.5); HEMATOCRIT 39.2 % (35.4-49); HEMOGLOBIN 12.7 GM/dL (11.7-16.9); LYMPH % 17.9 % (8-40); MCH 29.2 pg (25.7-33.7); MCHC 32.4 g/dl (32.0-35.9); MEAN PLT VOLUME 7.2 fl (7.5-11.1); NEUT % 75.7 % (42.8-82.8); PLATELET COUNT 473 10^3/uL (134-434); RBC 4.35 M/mm3 (4.00-5.60); RDW 14.4 % (11.9-15.9); WHITE BLOOD COUNT 9.7 K/mm3 (4.0-10.0)
[2021-10-11 11:18] LABS: INR 1.47 (0.83-1.09)
[2021-10-11 11:29] LABS: BLOOD UREA NITROGEN 3.6 mg/dL (7-18)
[2021-10-11 11:33] LABS: BILIRUBIN,DIRECT 0.1 mg/dL (0.0-0.2); CREATININE 0.5 mg/dL (0.55-1.3)
[2021-10-11 11:35] LABS: BILIRUBIN,TOTAL 0.3 mg/dL (0.2-1); TOT PROT 6.4 g/dl (6.4-8.2)
[2021-10-11 11:48] LABS: ALBUMIN 3.3 g/dl (3.4-5.0)
[2021-10-11] MEDS ORDERED: LORazepam 1 MG TABLET PO PRN (12:25)
[2021-10-11] MEDS: LORazepam 1 MG TABLET PO SCH ×2 (17:57→22:02)
[2021-10-12] MEDS ORDERED: LORazepam 0.5 MG TABLET PO SCH (05:00)
[2021-10-12] MEDS: LORazepam 1 MG TABLET PO SCH ×4 (05:44→22:18)
[2021-10-12] MEDS: LACTULOSE 20 GM/30 ML UDC (FOR ORAL USE ONLY) PO SCH ×3 (05:45→22:19)
[2021-10-12] MEDS: AMANTADINE HCL 100 MG TABLET PO SCH ×2 (06:33→17:28)
[2021-10-12] MEDS: LEVOTHYROXINE NA 25 MCG TABLET (FP) PO SCH (06:33)
[2021-10-12] MEDS: DIVALPROEX SODIUM 250 MG TABLET E.C. PO SCH ×3 (06:33→22:19)
[2021-10-12] MEDS: LACTOBACILLUS ACIDOPHILUS 1 TABLET PO SCH (08:13)
[2021-10-12] MEDS: TAMSULOSIN HCL 0.4 MG CAP PO SCH (08:14)
[2021-10-12 09:02] LABS: BASO % 0.4 % (0-2.0); EOS % 0.8 % (0-4.5); HEMATOCRIT 38.5 % (35.4-49); LYMPH % 22.8 % (8-40); MCHC 33.8 g/dl (32.0-35.9); MEAN CELL VOLUME 88.8 fl (80-96); MEAN PLT VOLUME 7.1 fl (7.5-11.1); MONO % 6.5 % (3.8-10.2); NEUT % 69.5 % (42.8-82.8); PLATELET COUNT 443 10^3/uL (134-434); RBC 4.34 M/mm3 (4.00-5.60); RDW 14.4 % (11.9-15.9); WHITE BLOOD COUNT 8.8 K/mm3 (4.0-10.0)
[2021-10-12] MEDS ORDERED: ARIPiprazole 5 MG TABLET ONE (09:57)
[2021-10-12] MEDS: ARIPiprazole 10 MG TABLET PO SCH (10:03)
[2021-10-12] MEDS: SODIUM BICARBONATE 650 MG TABLET PO SCH (10:04)
[2021-10-12] MEDS: FINASTERIDE 5 MG TABLET (FP) PO SCH (10:04)
[2021-10-12] MEDS: FERROUS SO4 325 MG TABLET (FP) PO SCH (10:04)
[2021-10-12] MEDS: THIAMINE HCL 200 MG/2 ML VIAL IVPB SCH (10:05)
[2021-10-12] MEDS: ENOXAPARIN NA (PORCINE) 40 MG/0.4 ML DISP.SYRIN SQ SCH (10:05)
[2021-10-12] MEDS: AMMONIUM LACTATE 12% LOTION 225 GM BOTTLE TP SCH (10:05)
[2021-10-12] MEDS: PRAMOXINE HCL 1% (SARNA SENSITIVE) 222 ML BOTTLE TP SCH ×2 (10:06→22:19)
[2021-10-12] MEDS: ZINC OXIDE 20% TOPICAL OINTMENT 30 GM TUBE TP SCH (10:06)
[2021-10-12] MEDS: FOLIC ACID 1 MG TABLET (FP) PO SCH (10:08)
[2021-10-12 10:50] LABS: ALBUMIN 3.2 g/dl (3.4-5.0); ALK PHOS 71 U/L (45-117); ANION GAP 6 MMOL/L (8-16); BILIRUBIN,TOTAL 0.4 mg/dL (0.2-1); BLOOD UREA NITROGEN 2.7 mg/dL (7-18); CALCIUM 9.2 mg/dL (8.5-10.1); CHLORIDE 101 mmol/L (98-107); CO2 30 mmol/L (21-32); CREATININE 0.6 mg/dL (0.55-1.3); GLUCOSE,RANDOM 69 mg/dL (74-106); MAGNESIUM 2.2 mg/dL (1.8-2.4); SGOT/AST 9 U/L (15-37); SGPT/ALT 14 U/L (13-61); SODIUM 138 mmol/L (136-145); TOT PROT 6.4 g/dl (6.4-8.2)
[2021-10-13] MEDS ORDERED: LORazepam 0.5 MG TABLET PO ONE (05:00)
[2021-10-13] MEDS: LORazepam 0.5 MG TABLET PO SCH ×4 (05:01→22:04)
[2021-10-13] MEDS: DIVALPROEX SODIUM 250 MG TABLET E.C. PO SCH ×3 (06:02→22:03)
[2021-10-13] MEDS: LEVOTHYROXINE NA 25 MCG TABLET (FP) PO SCH (06:02)
[2021-10-13] MEDS: AMANTADINE HCL 100 MG TABLET PO SCH ×2 (06:02→17:15)
[2021-10-13] MEDS: LACTULOSE 20 GM/30 ML UDC (FOR ORAL USE ONLY) PO SCH ×4 (06:08→22:03)
[2021-10-13] MEDS: TAMSULOSIN HCL 0.4 MG CAP PO SCH (08:51)
[2021-10-13] MEDS: LACTOBACILLUS ACIDOPHILUS 1 TABLET PO SCH (08:51)
[2021-10-13] MEDS: ENOXAPARIN NA (PORCINE) 40 MG/0.4 ML DISP.SYRIN SQ SCH (10:04)
[2021-10-13] MEDS: PRAMOXINE HCL 1% (SARNA SENSITIVE) 222 ML BOTTLE TP SCH ×2 (10:05→22:03)
[2021-10-13] MEDS: ARIPiprazole 5 MG TABLET PO SCH (10:05)
[2021-10-13] MEDS: FERROUS SO4 325 MG TABLET (FP) PO SCH (10:05)
[2021-10-13] MEDS: SODIUM BICARBONATE 650 MG TABLET PO SCH (10:05)
[2021-10-13] MEDS: THIAMINE HCL 100 MG TABLET (FP) PO SCH (10:05)
[2021-10-13] MEDS: ZINC OXIDE 20% TOPICAL OINTMENT 30 GM TUBE TP SCH (10:05)
[2021-10-13] MEDS: AMMONIUM LACTATE 12% LOTION 225 GM BOTTLE TP SCH (10:05)
[2021-10-13] MEDS: FINASTERIDE 5 MG TABLET (FP) PO SCH (10:05)
[2021-10-13] MEDS: FOLIC ACID 1 MG TABLET (FP) PO SCH (10:05)
[2021-10-13 12:24] LABS: BASO % 0.6 % (0-2.0); EOS % 0.7 % (0-4.5); HEMATOCRIT 36.1 % (35.4-49); HEMOGLOBIN 12.1 GM/dL (11.7-16.9); LYMPH % 16.8 % (8-40); MCH 29.7 pg (25.7-33.7); MCHC 33.6 g/dl (32.0-35.9); MEAN CELL VOLUME 88.4 fl (80-96); MEAN PLT VOLUME 7.5 fl (7.5-11.1); MONO % 8.1 % (3.8-10.2); NEUT % 73.8 % (42.8-82.8); PLATELET COUNT 441 10^3/uL (134-434); RBC 4.08 M/mm3 (4.00-5.60); RDW 14.6 % (11.9-15.9); WHITE BLOOD COUNT 12.1 K/mm3 (4.0-10.0)
[2021-10-13 12:51] LABS: ALBUMIN 2.9 g/dl (3.4-5.0); BLOOD UREA NITROGEN 3.5 mg/dL (7-18); CALCIUM 9.2 mg/dL (8.5-10.1); MAGNESIUM 2.1 mg/dL (1.8-2.4)
[2021-10-13 12:54] LABS: CREATININE 0.6 mg/dL (0.55-1.3)
[2021-10-13 12:56] LABS: BILIRUBIN,TOTAL 0.3 mg/dL (0.2-1); TOT PROT 5.8 g/dl (6.4-8.2)
[2021-10-14] MEDS ORDERED: LORazepam 0.5 MG TABLET PO PRN
[2021-10-14] MEDS ORDERED: LORazepam 0.5 MG TABLET PO ONE (05:00)
[2021-10-14] MEDS: DIVALPROEX SODIUM 250 MG TABLET E.C. PO SCH ×3 (05:40→23:11)
[2021-10-14] MEDS: LEVOTHYROXINE NA 25 MCG TABLET (FP) PO SCH (06:33)
[2021-10-14] MEDS: AMANTADINE HCL 100 MG TABLET PO SCH ×2 (06:33→16:29)
[2021-10-14] MEDS: LACTOBACILLUS ACIDOPHILUS 1 TABLET PO SCH (08:33)
[2021-10-14] MEDS: TAMSULOSIN HCL 0.4 MG CAP PO SCH (08:33)
[2021-10-14] MEDS: SODIUM BICARBONATE 650 MG TABLET PO SCH (09:03)
[2021-10-14] MEDS: THIAMINE HCL 100 MG TABLET (FP) PO SCH (09:03)
[2021-10-14] MEDS: LACTULOSE 20 GM/30 ML UDC (FOR ORAL USE ONLY) PO SCH ×3 (09:03→23:11)
[2021-10-14] MEDS: ARIPiprazole 5 MG TABLET PO SCH (09:04)
[2021-10-14] MEDS: FERROUS SO4 325 MG TABLET (FP) PO SCH (09:04)
[2021-10-14] MEDS: FOLIC ACID 1 MG TABLET (FP) PO SCH (09:04)
[2021-10-14] MEDS: ENOXAPARIN NA (PORCINE) 40 MG/0.4 ML DISP.SYRIN SQ SCH (09:04)
[2021-10-14] MEDS: AMMONIUM LACTATE 12% LOTION 225 GM BOTTLE TP SCH (09:05)
[2021-10-14] MEDS: FINASTERIDE 5 MG TABLET (FP) PO SCH (09:05)
[2021-10-14] MEDS: PRAMOXINE HCL 1% (SARNA SENSITIVE) 222 ML BOTTLE TP SCH ×2 (09:06→23:11)
[2021-10-14] MEDS: ZINC OXIDE 20% TOPICAL OINTMENT 30 GM TUBE TP SCH (09:06)
[2021-10-14 09:20] LABS: BASO % 0.5 % (0-2.0); EOS % 0.6 % (0-4.5); HEMATOCRIT 38.3 % (35.4-49); LYMPH % 24.2 % (8-40); MCH 30.5 pg (25.7-33.7); MEAN CELL VOLUME 89.6 fl (80-96); MEAN PLT VOLUME 7.6 fl (7.5-11.1); NEUT % 67.7 % (42.8-82.8); PLATELET COUNT 334 10^3/uL (134-434); RBC 4.28 M/mm3 (4.00-5.60); RDW 14.8 % (11.9-15.9); WHITE BLOOD COUNT 10.1 K/mm3 (4.0-10.0)
[2021-10-14 09:39] LABS: CALCIUM 9.4 mg/dL (8.5-10.1)
[2021-10-14 09:40] LABS: ALBUMIN 3.1 g/dl (3.4-5.0); BLOOD UREA NITROGEN 4.7 mg/dL (7-18); MAGNESIUM 2.3 mg/dL (1.8-2.4)
[2021-10-14 09:42] LABS: CREATININE 0.5 mg/dL (0.55-1.3)
[2021-10-14 09:45] LABS: BILIRUBIN,TOTAL 0.4 mg/dL (0.2-1); TOT PROT 6.2 g/dl (6.4-8.2)
[2021-10-15] MEDS: LEVOTHYROXINE NA 25 MCG TABLET (FP) PO SCH (06:49)
[2021-10-15] MEDS: AMANTADINE HCL 100 MG TABLET PO SCH ×2 (06:50→18:09)
[2021-10-15] MEDS: DIVALPROEX SODIUM 250 MG TABLET E.C. PO SCH ×3 (06:50→21:51)
[2021-10-15] MEDS: TAMSULOSIN HCL 0.4 MG CAP PO SCH (09:44)
[2021-10-15] MEDS: LACTULOSE 20 GM/30 ML UDC (FOR ORAL USE ONLY) PO SCH ×2 (09:44→21:51)
[2021-10-15] MEDS: FINASTERIDE 5 MG TABLET (FP) PO SCH (09:44)
[2021-10-15] MEDS: PRAMOXINE HCL 1% (SARNA SENSITIVE) 222 ML BOTTLE TP SCH ×2 (09:45→21:52)
[2021-10-15] MEDS: LACTOBACILLUS ACIDOPHILUS 1 TABLET PO SCH (09:45)
[2021-10-15] MEDS: THIAMINE HCL 100 MG TABLET (FP) PO SCH (09:45)
[2021-10-15] MEDS: FERROUS SO4 325 MG TABLET (FP) PO SCH (09:45)
[2021-10-15] MEDS: ZINC OXIDE 20% TOPICAL OINTMENT 30 GM TUBE TP SCH (09:45)
[2021-10-15] MEDS: SODIUM BICARBONATE 650 MG TABLET PO SCH (09:45)
[2021-10-15] MEDS: AMMONIUM LACTATE 12% LOTION 225 GM BOTTLE TP SCH (09:45)
[2021-10-15] MEDS: FOLIC ACID 1 MG TABLET (FP) PO SCH (09:45)
[2021-10-15] MEDS: ARIPiprazole 5 MG TABLET PO SCH (09:45)
[2021-10-15] MEDS: ENOXAPARIN NA (PORCINE) 40 MG/0.4 ML DISP.SYRIN SQ SCH (09:45)
[2021-10-15 11:11] LABS: BASO % 0.4 % (0-2.0); EOS % 0.4 % (0-4.5); HEMATOCRIT 41.7 % (35.4-49); HEMOGLOBIN 13.6 GM/dL (11.7-16.9); LYMPH % 17.8 % (8-40); MCH 29.4 pg (25.7-33.7); MCHC 32.7 g/dl (32.0-35.9); MEAN CELL VOLUME 89.9 fl (80-96); MEAN PLT VOLUME 7.7 fl (7.5-11.1); MONO % 6.5 % (3.8-10.2); NEUT % 74.9 % (42.8-82.8); PLATELET COUNT 510 10^3/uL (134-434); RBC 4.64 M/mm3 (4.00-5.60); RDW 14.6 % (11.9-15.9); WHITE BLOOD COUNT 9.9 K/mm3 (4.0-10.0)
[2021-10-15 11:14] LABS: CALCIUM 9.4 mg/dL (8.5-10.1)
[2021-10-15 11:16] LABS: ALBUMIN 3.5 g/dl (3.4-5.0); BLOOD UREA NITROGEN 5.9 mg/dL (7-18); MAGNESIUM 2.3 mg/dL (1.8-2.4)
[2021-10-15 11:18] LABS: CREATININE 0.7 mg/dL (0.55-1.3)
[2021-10-15 11:20] LABS: BILIRUBIN,TOTAL 0.5 mg/dL (0.2-1); TOT PROT 7.1 g/dl (6.4-8.2)
[2021-10-16] MEDS: AMANTADINE HCL 100 MG TABLET PO SCH (06:06)
[2021-10-16] MEDS: LEVOTHYROXINE NA 25 MCG TABLET (FP) PO SCH (06:06)
[2021-10-16] MEDS: DIVALPROEX SODIUM 250 MG TABLET E.C. PO SCH ×2 (06:06→13:53)
[2021-10-16] MEDS: TAMSULOSIN HCL 0.4 MG CAP PO SCH (10:55)
[2021-10-16] MEDS: SODIUM BICARBONATE 650 MG TABLET PO SCH (10:55)
[2021-10-16] MEDS: LACTOBACILLUS ACIDOPHILUS 1 TABLET PO SCH (10:55)
[2021-10-16] MEDS: THIAMINE HCL 100 MG TABLET (FP) PO SCH (10:55)
[2021-10-16] MEDS: FERROUS SO4 325 MG TABLET (FP) PO SCH (10:56)
[2021-10-16] MEDS: FINASTERIDE 5 MG TABLET (FP) PO SCH (10:56)
[2021-10-16] MEDS: ENOXAPARIN NA (PORCINE) 40 MG/0.4 ML DISP.SYRIN SQ SCH (10:56)
[2021-10-16] MEDS: PRAMOXINE HCL 1% (SARNA SENSITIVE) 222 ML BOTTLE TP SCH (10:57)
[2021-10-16] MEDS: AMMONIUM LACTATE 12% LOTION 225 GM BOTTLE TP SCH (10:57)
[2021-10-16] MEDS: FOLIC ACID 1 MG TABLET (FP) PO SCH (10:57)
[2021-10-16] MEDS: ARIPiprazole 5 MG TABLET PO SCH (10:57)
[2021-10-16] MEDS: ZINC OXIDE 20% TOPICAL OINTMENT 30 GM TUBE TP SCH (10:57)
[2021-10-16] MEDS: LACTULOSE 20 GM/30 ML UDC (FOR ORAL USE ONLY) PO SCH (10:57)
[2021-10-16 11:14] LABS: BASO % 0.7 % (0-2.0); EOS % 0.5 % (0-4.5); HEMOGLOBIN 13.6 GM/dL (11.7-16.9); LYMPH % 25.3 % (8-40); MCH 29.9 pg (25.7-33.7); MEAN CELL VOLUME 87.8 fl (80-96); MEAN PLT VOLUME 7.3 fl (7.5-11.1); MONO % 9.1 % (3.8-10.2); NEUT % 64.4 % (42.8-82.8); PLATELET COUNT 498 10^3/uL (134-434); RBC 4.56 M/mm3 (4.00-5.60); RDW 14.9 % (11.9-15.9); WHITE BLOOD COUNT 7.3 K/mm3 (4.0-10.0)
[2021-10-16 11:38] LABS: ALBUMIN 3.6 g/dl (3.4-5.0); BLOOD UREA NITROGEN 7.5 mg/dL (7-18); CALCIUM 9.4 mg/dL (8.5-10.1)
[2021-10-16 11:41] LABS: CREATININE 0.7 mg/dL (0.55-1.3)
[2021-10-16 11:43] LABS: BILIRUBIN,TOTAL 0.5 mg/dL (0.2-1); MAGNESIUM 2.1 mg/dL (1.8-2.4); TOT PROT 7.4 g/dl (6.4-8.2)
[2021-10-16 15:54] VITALS: PULSE 86; TEMP 98.4
[2021-10-16 15:56] VITALS: BP 111/80
== END 2021-10-16 17:22 | DRG 775 ==
LOC: JER 17:16 → JERBED 20:14 → J4S 23:18 → J8W 10-10 17:59
PROVIDERS: ADMIT Internal Medicine; ATTEND Nurse Practitioner Acute Care
PROC: HZ2ZZZZ Detoxification Services for Substance Abuse Treatment (ICD-10-PCS; principal; 2021-10-09)
DX: F10.29 Alcohol dependence with unspecified alcohol-induced disorder (principal); G93.41 Metabolic encephalopathy; E46 Unspecified protein-calorie malnutrition; F20.9 Schizophrenia, unspecified; F31.9 Bipolar disorder, unspecified; E06.3 Autoimmune thyroiditis; E87.1 Hypo-osmolality and hyponatremia; J44.9 Chronic obstructive pulmonary disease, unspecified; K70.9 Alcoholic liver disease, unspecified; R79.89 Other specified abnormal findings of blood chemistry; Z68.21 Body mass index [BMI] 21.0-21.9, adult
CPT/HCPCS: 36415; 36600; 70450-TC; 71045-TC-FY; 74177-TC; 76705-TC; 80048; 80053; 80076; 80164; 80307; 81003; 82140; 82550; 82607; 82746; 82803; 83735; 84100; 84436; 84443; 84479; 84484; 85025; 85027; 85610; 87086; 93005; 93010; 97116-GP; 97161-GP; 99285-25; C9803; J0131; Q9967; U0003; U0005

== ENCOUNTER 2024-02-19 12:29 | Inpatient (IN) | payer OTHER ==
[2024-02-19] MEDS ORDERED: ALBUTEROL SO4 2.5/IPRATROPIUM 0.5 INH SOL 3 ML VIAL.NEB. NEB ONE (13:38)
[2024-02-19] MEDS: ALBUTEROL SO4 2.5/IPRATROPIUM 0.5 INH SOL 3 ML VIAL.NEB. NEB ONE (13:46)
[2024-02-19 14:10] LABS: BASO % 1.2 % (0-2.0); EOS % 0.9 % (0-4.5); HEMATOCRIT 41.2 % (35.4-49); HEMOGLOBIN 13.5 GM/dL (11.7-16.9); LYMPH % 15.8 % (8-40); MCH 30.8 pg (25.7-33.7); MCHC 32.8 g/dl (32.0-35.9); MEAN CELL VOLUME 93.8 fl (80-96); MEAN PLT VOLUME 7.3 fl (7.5-11.1); MONO % 6.1 % (3.8-10.2); PLATELET COUNT 268 10^3/uL (134-434); RDW 14.2 % (11.9-15.9)
[2024-02-19 14:30] LABS: POTASSIUM 4.6 mmol/L (3.5-5.1)
[2024-02-19 14:35] LABS: BLOOD UREA NITROGEN 12.5 mg/dL (7-18); CALCIUM 9.4 mg/dL (8.5-10.1); MAGNESIUM 2.5 mg/dL (1.8-2.4)
[2024-02-19 14:38] LABS: CREATININE 0.6 mg/dL (0.55-1.3)
[2024-02-19 14:39] LABS: BILIRUBIN,TOTAL 1.1 mg/dL (0.2-1)
[2024-02-19] MEDS ORDERED: methylPREDNISolone NA SUCC 125 MG/2 ML VIAL ONE (15:24)
[2024-02-19] MEDS ORDERED: CEFTRIAXONE 1 GM/50 ML BAG ONE (15:25)
[2024-02-19] MEDS ORDERED: AZITHROMYCIN IVPB 500 MG/250 ML BAG IVPB ONE (15:25)
[2024-02-19] MEDS: CEFTRIAXONE 1,000 MG in DEXTROSE 5%-WATER - 50 ML IVPB ONE (15:26)
[2024-02-19] MEDS: SODIUM CHLORIDE 1,000 ML IV STA (15:26)
[2024-02-19] MEDS: methylPREDNISolone NA SUCC 125 MG/2 ML VIAL IVPB ONE (15:26)
[2024-02-19] MEDS: AZITHROMYCIN IVPB 500 MG in DEXTROSE 5%-WATER - 250 ML IVPB ONE (15:44)
[2024-02-19 19:12] LABS: PH,URINE 8.5 (5.0-8.0); URINE APPEARANCE CLEAR; URINE BILIRUBIN NEGATIVE (NEGATIVE); URINE COLOR YELLOW; URINE GLUCOSE (UA) NEGATIVE (NEGATIVE); URINE KETONE NEGATIVE (NEGATIVE); URINE LEUK ESTERASE NEGATIVE (NEGATIVE); URINE NITRITE NEGATIVE (NEGATIVE); URINE PROTEIN NEGATIVE (NEGATIVE); URINE UROBILINOGEN 0.2 mg/dL (0.2-1.0)
[2024-02-19] MEDS: ALBUTEROL SO4 2.5/IPRATROPIUM 0.5 INH SOL 3 ML VIAL.NEB. NEB SCH (19:51)
[2024-02-19] MEDS: LEVALBUTEROL HCL 0.31 MG/3 ML VIAL.NEB IH ONE (19:51)
[2024-02-19] MEDS ORDERED: CARBIDOPA/LEVODOPA 25/100 TABLET (FP) ONE (20:43)
[2024-02-19] MEDS: CARBIDOPA/LEVODOPA 25/100 TABLET (FP) PO SCH (20:48)
[2024-02-19] MEDS ORDERED: MONTELUKAST NA 10 MG TABLET ONE (22:20)
[2024-02-19] MEDS ORDERED: ATORVASTATIN CA 80 MG TABLET (FP) ONE (22:20)
[2024-02-19] MEDS ORDERED: TAMSULOSIN HCL 0.4 MG CAP ONE (22:21)
[2024-02-19] MEDS ORDERED: GABAPENTIN 300 MG CAPSULE ONE (22:21)
[2024-02-19] MEDS: GABAPENTIN 300 MG CAPSULE PO SCH (22:26)
[2024-02-19] MEDS: MONTELUKAST NA 10 MG TABLET PO SCH (22:26)
[2024-02-19] MEDS: ARTIFICIAL TEARS OPHTHALMIC DROPS OU SCH (22:26)
[2024-02-19] MEDS: ATORVASTATIN CA 80 MG TABLET (FP) PO SCH (22:26)
[2024-02-19] MEDS: TAMSULOSIN HCL 0.4 MG CAP PO SCH (22:26)
[2024-02-19] MEDS: FINASTERIDE 5 MG TABLET (FP) PO SCH (23:02)
[2024-02-19] MEDS: cloZAPine 25 MG TABLET PO SCH (23:02)
[2024-02-20] MEDS ORDERED: CARBIDOPA/LEVODOPA 25/100 TABLET (FP) ONE ×2 (05:50→14:35)
[2024-02-20] MEDS ORDERED: GABAPENTIN 300 MG CAPSULE ONE ×2 (05:51→14:35)
[2024-02-20 06:51] LABS: BASO % 0.3 % (0-2.0); HEMATOCRIT 41.4 % (35.4-49); HEMOGLOBIN 13.6 GM/dL (11.7-16.9); MCH 30.7 pg (25.7-33.7); MCHC 32.8 g/dl (32.0-35.9); MEAN CELL VOLUME 93.8 fl (80-96); MEAN PLT VOLUME 7.4 fl (7.5-11.1); MONO % 0.9 % (3.8-10.2); NEUT % 90.8 % (42.8-82.8); PLATELET COUNT 256 10^3/uL (134-434); RBC 4.42 M/mm3 (4.00-5.60); RDW 14.5 % (11.9-15.9); WHITE BLOOD COUNT 12.5 K/mm3 (4.0-10.0)
[2024-02-20 07:08] LABS: POTASSIUM 4.1 mmol/L (3.5-5.1)
[2024-02-20 07:11] LABS: CALCIUM 9.5 mg/dL (8.5-10.1)
[2024-02-20 07:12] LABS: BLOOD UREA NITROGEN 15.6 mg/dL (7-18); MAGNESIUM 2.4 mg/dL (1.8-2.4)
[2024-02-20 07:15] LABS: CREATININE 0.6 mg/dL (0.55-1.3); PHOSPHOROUS 2.8 mg/dL (2.5-4.9)
[2024-02-20 07:16] LABS: BILIRUBIN,TOTAL 1.1 mg/dL (0.2-1); TOT PROT 7.1 g/dl (6.4-8.2)
[2024-02-20] MEDS ORDERED: ALBUTEROL SO4 2.5/IPRATROPIUM 0.5 INH SOL 3 ML VIAL.NEB. NEB ONE ×3 (08:45→14:38)
[2024-02-20] MEDS ORDERED: CEFTRIAXONE 1 GM/50 ML BAG ONE (10:11)
[2024-02-20] MEDS ORDERED: AZITHROMYCIN IVPB 500 MG/250 ML BAG IVPB ONE (10:11)
[2024-02-20] MEDS ORDERED: CHOLECALCIFEROL (VIT D3) 1,000 UNIT (25 MCG) TABLET ONE (10:14)
[2024-02-20] MEDS ORDERED: ASCORBIC ACID 500 MG TABLET (FP) ONE (10:14)
[2024-02-20] MEDS ORDERED: predniSONE 20 MG TABLET (UD) ONE (10:14)
[2024-02-20] MEDS ORDERED: NICOTINE 14 MG/24 HOURS TOPICAL PATCH TD ONE (10:15)
[2024-02-20] MEDS ORDERED: ESCITALOPRAM OXALATE 10 MG TABLET ONE (10:15)
[2024-02-20] MEDS ORDERED: ENOXAPARIN NA (PORCINE) 40 MG/0.4 ML DISP.SYRIN SQ ONE (10:15)
[2024-02-20] MEDS: predniSONE 20 MG TABLET (UD) PO SCH (11:14)
[2024-02-20] MEDS: ENOXAPARIN NA (PORCINE) 40 MG/0.4 ML DISP.SYRIN SQ SCH (11:14)
[2024-02-20] MEDS: NICOTINE 14 MG/24 HOURS TOPICAL PATCH TD SCH (11:14)
[2024-02-20] MEDS: LACTOBACILLUS ACIDOPHILUS 1 TABLET PO SCH (11:14)
[2024-02-20] MEDS: SODIUM BICARBONATE 650 MG TABLET PO SCH (11:14)
[2024-02-20] MEDS: CEFTRIAXONE 1 GM in DEXTROSE 5%-WATER - 50 ML IVPB SCH (11:14)
[2024-02-20] MEDS: ESCITALOPRAM OXALATE 10 MG TABLET PO SCH (11:14)
[2024-02-20] MEDS: ARIPiprazole 2 MG TABLET PO SCH (11:14)
[2024-02-20] MEDS: AZITHROMYCIN IVPB 500 MG/250 ML BAG IVPB SCH (11:15)
[2024-02-20] MEDS: CHOLECALCIFEROL (VIT D3) 1,000 UNIT (25 MCG) TABLET PO SCH (11:15)
[2024-02-20] MEDS: ASCORBIC ACID 500 MG TABLET (FP) PO SCH (11:15)
[2024-02-21] MEDS: TAMSULOSIN HCL 0.4 MG CAP PO SCH (09:25)
[2024-02-21 10:19] LABS: BASO % 0.2 % (0-2.0); EOS % 0.5 % (0-4.5); HEMOGLOBIN 12.6 GM/dL (11.7-16.9); LYMPH % 25.2 % (8-40); MCH 31.5 pg (25.7-33.7); MCHC 34.1 g/dl (32.0-35.9); MEAN CELL VOLUME 92.4 fl (80-96); MEAN PLT VOLUME 7.4 fl (7.5-11.1); MONO % 10.4 % (3.8-10.2); NEUT % 63.7 % (42.8-82.8); PLATELET COUNT 236 10^3/uL (134-434); RBC 4.01 M/mm3 (4.00-5.60); RDW 14.3 % (11.9-15.9); WHITE BLOOD COUNT 10.7 K/mm3 (4.0-10.0)
[2024-02-21 10:36] LABS: POTASSIUM 3.7 mmol/L (3.5-5.1)
[2024-02-21 10:38] LABS: CALCIUM 9.1 mg/dL (8.5-10.1)
[2024-02-21 10:39] LABS: BLOOD UREA NITROGEN 26.1 mg/dL (7-18)
[2024-02-21 10:42] LABS: BILIRUBIN,DIRECT 0.2 mg/dL (0.0-0.2); CREATININE 0.7 mg/dL (0.55-1.3)
[2024-02-21] MEDS ORDERED: POLYETHYLENE GLYCOL (HEALTHYLAX) 3350 17 GM PACKET PO PRN (17:02)
[2024-02-21] MEDS: FLUTICASONE/UMECLIDIN/VILANTER(100-62.5-25 TRELEGY ELLIPTA) INAHLER IH SCH (18:24)
[2024-02-21] MEDS: cloZAPine 25 MG TABLET PO SCH (21:41)
[2024-02-21] MEDS: DIVALPROEX SODIUM 250 MG TABLET E.C. PO SCH (21:41)
[2024-02-21] MEDS: guaiFENesin 600 MG TABLET.ER (FP) PO SCH (21:41)
[2024-02-21] MEDS ORDERED: BUDESONIDE/FORMETEROL FUMARATE 160/4.5 mcg INHALER IH SCH (22:00)
[2024-02-21] MEDS: ARTIFICIAL TEARS OPHTHALMIC DROPS OU SCH (22:11)
[2024-02-22] MEDS: LEVOTHYROXINE NA 25 MCG TABLET (FP) PO SCH (06:14)
[2024-02-22 08:55] LABS: BASO % 0.2 % (0-2.0); EOS % 0.8 % (0-4.5); HEMATOCRIT 38.7 % (35.4-49); LYMPH % 36.5 % (8-40); MCH 30.8 pg (25.7-33.7); MCHC 33.5 g/dl (32.0-35.9); MEAN PLT VOLUME 7.2 fl (7.5-11.1); MONO % 4.6 % (3.8-10.2); NEUT % 57.9 % (42.8-82.8); PLATELET COUNT 254 10^3/uL (134-434); RDW 14.1 % (11.9-15.9); WHITE BLOOD COUNT 9.2 K/mm3 (4.0-10.0)
[2024-02-22 09:09] LABS: POTASSIUM 3.4 mmol/L (3.5-5.1)
[2024-02-22 09:12] LABS: CALCIUM 9.2 mg/dL (8.5-10.1)
[2024-02-22 09:13] LABS: ALBUMIN 3.6 g/dl (3.4-5.0); BLOOD UREA NITROGEN 20.3 mg/dL (7-18)
[2024-02-22 09:16] LABS: CREATININE 0.8 mg/dL (0.55-1.3)
[2024-02-22 09:17] LABS: BILIRUBIN,TOTAL 0.9 mg/dL (0.2-1)
[2024-02-22 09:18] LABS: TOT PROT 6.4 g/dl (6.4-8.2)
[2024-02-22] MEDS: ZINC SULFATE 220 MG CAPSULE (FP) PO SCH (09:31)
[2024-02-22] MEDS ORDERED: FLUTICASONE/UMECLIDIN/VILANTER(100-62.5-25 TRELEGY ELLIPTA) INAHLER IH SCH (10:00)
[2024-02-22] MEDS ORDERED: PATIENT'S OWN MEDICATION (NON-FORMULARY) (Ascorbate Calcium [Vitamin C] 500 MG Tablet) PO SCH (10:00)
[2024-02-22] MEDS: ALBUTEROL SO4 0.083% IH SOL 2.5 MG/3 ML VIAL.NEB. NEB SCH (11:20)
[2024-02-22] MEDS: methylPREDNISolone NA SUCC 40 MG/1 ML VIAL IVPUSH SCH (18:33)
[2024-02-23 14:45] VITALS: BMI 19.4
[2024-02-23] MEDS: POTASSIUM CHLORIDE ORAL LIQUID 20 MEQ/15 ML PO ONE (17:38)
[2024-02-23] MEDS: ALBUTEROL SO4 2.5/IPRATROPIUM 0.5 INH SOL 3 ML VIAL.NEB. NEB PRN (18:51)
[2024-02-24 08:53] LABS: BASO % 0.1 % (0-2.0); HEMATOCRIT 37.8 % (35.4-49); HEMOGLOBIN 12.4 GM/dL (11.7-16.9); LYMPH % 8.9 % (8-40); MCH 30.6 pg (25.7-33.7); MCHC 32.7 g/dl (32.0-35.9); MEAN CELL VOLUME 93.5 fl (80-96); MEAN PLT VOLUME 7.8 fl (7.5-11.1); MONO % 2.3 % (3.8-10.2); NEUT % 88.7 % (42.8-82.8); PLATELET COUNT 249 10^3/uL (134-434); RBC 4.05 M/mm3 (4.00-5.60); RDW 14.1 % (11.9-15.9); WHITE BLOOD COUNT 13.8 K/mm3 (4.0-10.0)
[2024-02-24 09:01] LABS: POTASSIUM 4.4 mmol/L (3.5-5.1)
[2024-02-24 09:05] LABS: ALBUMIN 3.6 g/dl (3.4-5.0)
[2024-02-24 09:07] LABS: CREATININE 0.6 mg/dL (0.55-1.3)
[2024-02-24 09:09] LABS: CALCIUM 9.1 mg/dL (8.5-10.1); MAGNESIUM 2.4 mg/dL (1.8-2.4)
[2024-02-24 09:11] LABS: BLOOD UREA NITROGEN 20.6 mg/dL (7-18)
[2024-02-24 09:12] LABS: BILIRUBIN,TOTAL 0.4 mg/dL (0.2-1); TOT PROT 6.4 g/dl (6.4-8.2)
[2024-02-24] MEDS: AZITHROMYCIN 500 MG TABLET PO SCH (11:00)
[2024-02-24] MEDS ORDERED: ALBUTEROL SO4 0.083% IH SOL 2.5 MG/3 ML VIAL.NEB. NEB ONE (19:27)
[2024-02-25 09:16] LABS: HEMATOCRIT 37.3 % (35.4-49); HEMOGLOBIN 12.2 GM/dL (11.7-16.9); MCH 30.5 pg (25.7-33.7); MCHC 32.7 g/dl (32.0-35.9); MEAN CELL VOLUME 93.2 fl (80-96); MEAN PLT VOLUME 7.8 fl (7.5-11.1); PLATELET COUNT 261 10^3/uL (134-434); RDW 14.1 % (11.9-15.9); WHITE BLOOD COUNT 12.8 K/mm3 (4.0-10.0)
[2024-02-25 09:35] LABS: POTASSIUM 4.1 mmol/L (3.5-5.1)
[2024-02-25 09:41] LABS: ALBUMIN 3.3 g/dl (3.4-5.0); BLOOD UREA NITROGEN 24.4 mg/dL (7-18)
[2024-02-25 09:44] LABS: CREATININE 0.9 mg/dL (0.55-1.3)
[2024-02-25 09:45] LABS: BILIRUBIN,TOTAL 0.4 mg/dL (0.2-1); TOT PROT 5.9 g/dl (6.4-8.2)
[2024-02-25 10:55] LABS: ANISOCYTOSIS 0; HELMET CELLS 0; HOWELL-JOLLY BODIES 0; MACROCYTOSIS 0; OVALOCYTE 0; ROULEAU 0; SICKELED CELLS 0; TARGET CELLS 0; TEAR DROP CELLS 0; TOXIC GRANULATION 0
[2024-02-25] MEDS ORDERED: guaiFENesin 200 MG/10 ML 10 ML UNIT-DOSE CUPS PO PRN (13:58)
[2024-02-25] MEDS ORDERED: LOPERAMIDE HCL 2 MG CAPSULE PO PRN (13:59)
[2024-02-25] MEDS: BANATROL PLUS POWDER PACKET PO SCH (15:13)
[2024-02-26] MEDS: MAG HYDROX/AL HYDROX/SIMETH 30 ML UNIT-DOSE CUP PO PRN (02:40)
[2024-02-26 08:15] LABS: HEMATOCRIT 38.9 % (35.4-49); HEMOGLOBIN 12.8 GM/dL (11.7-16.9); MCH 30.6 pg (25.7-33.7); MEAN CELL VOLUME 92.6 fl (80-96); MEAN PLT VOLUME 7.4 fl (7.5-11.1); PLATELET COUNT 284 10^3/uL (134-434); RDW 14.3 % (11.9-15.9); WHITE BLOOD COUNT 13.3 K/mm3 (4.0-10.0)
[2024-02-26 08:27] LABS: POTASSIUM 4.2 mmol/L (3.5-5.1)
[2024-02-26 08:29] LABS: CALCIUM 9.2 mg/dL (8.5-10.1)
[2024-02-26 08:30] LABS: ALBUMIN 3.5 g/dl (3.4-5.0); BLOOD UREA NITROGEN 22.4 mg/dL (7-18)
[2024-02-26 08:33] LABS: CREATININE 0.6 mg/dL (0.55-1.3)
[2024-02-26 08:35] LABS: TOT PROT 6.3 g/dl (6.4-8.2)
[2024-02-26 09:07] LABS: BILIRUBIN,TOTAL 0.6 mg/dL (0.2-1)
[2024-02-26] MEDS: LOPERAMIDE HCL 2 MG CAPSULE PO PRN (13:33)
[2024-02-26] MEDS: methylPREDNISolone NA SUCC 40 MG/1 ML VIAL IVPUSH SCH (21:15)
[2024-02-27] MEDS: predniSONE 20 MG TABLET (UD) PO SCH (09:20)
[2024-02-27 09:41] LABS: BASO % 0.1 % (0-2.0); HEMATOCRIT 38.5 % (35.4-49); HEMOGLOBIN 12.9 GM/dL (11.7-16.9); LYMPH % 12.2 % (8-40); MCH 31.2 pg (25.7-33.7); MCHC 33.6 g/dl (32.0-35.9); MEAN CELL VOLUME 92.8 fl (80-96); MEAN PLT VOLUME 7.4 fl (7.5-11.1); MONO % 3.1 % (3.8-10.2); NEUT % 84.6 % (42.8-82.8); PLATELET COUNT 297 10^3/uL (134-434); RBC 4.15 M/mm3 (4.00-5.60)
[2024-02-27 10:05] LABS: POTASSIUM 3.7 mmol/L (3.5-5.1)
[2024-02-27 10:17] LABS: CALCIUM 9.3 mg/dL (8.5-10.1)
[2024-02-27 10:18] LABS: ALBUMIN 3.4 g/dl (3.4-5.0); BLOOD UREA NITROGEN 23.2 mg/dL (7-18)
[2024-02-27 10:21] LABS: CREATININE 0.7 mg/dL (0.55-1.3); TOT PROT 6.1 g/dl (6.4-8.2)
[2024-02-27 10:22] LABS: BILIRUBIN,TOTAL 0.5 mg/dL (0.2-1)
[2024-02-27 10:25] LABS: N-TERMINAL BNP 64.8 pg/ml (5-125)
[2024-02-28 14:51] VITALS: RESP 18
[2024-03-01 15:32] VITALS: BP 108/67; PULSE 87; TEMP 98.8
== END 2024-03-01 19:25 | disposition home or self-care (01) | DRG 140 ==
LOC: JER 12:29 → JERBED 15:17 → OBSVTOIN 02-20 15:07 → J6S 02-20 15:33
PROVIDERS: ADMIT Internal Medicine; ATTEND Internal Medicine
DX: J44.1 Chronic obstructive pulmonary disease with (acute) exacerbation (principal); J18.9 Pneumonia, unspecified organism; J96.11 Chronic respiratory failure with hypoxia; N17.9 Acute kidney failure, unspecified; E44.0 Moderate protein-calorie malnutrition; G20.A1 Parkinson's disease without dyskinesia, without mention of fluctuations; F20.9 Schizophrenia, unspecified; E03.9 Hypothyroidism, unspecified; E78.5 Hyperlipidemia, unspecified; F31.9 Bipolar disorder, unspecified; N40.1 Benign prostatic hyperplasia with lower urinary tract symptoms; J44.0 Chronic obstructive pulmonary disease with (acute) lower respiratory infection; R33.9 Retention of urine, unspecified
CPT/HCPCS: 0241U-QW; 36415; 71045-TC-FY; 80048; 80053; 80164; 81003; 82248; 82962; 83735; 83880; 84100; 84484; 85025; 87086; 87635; 87899; 93005; 93010; 93306-TC; 94010; 94640; 94761; 97116-GP; 97162-GP; 99285-25; G0378

== ENCOUNTER 2024-04-12 09:58 | Emergency (ER) | payer OTHER ==
[2024-04-12] MEDS: ALBUTEROL SO4 2.5/IPRATROPIUM 0.5 INH SOL 3 ML VIAL.NEB. NEB SCH (10:30)
[2024-04-12] MEDS ORDERED: ALBUTEROL SO4 2.5/IPRATROPIUM 0.5 INH SOL 3 ML VIAL.NEB. NEB ONE (10:34)
[2024-04-12] MEDS ORDERED: CARBIDOPA/LEVODOPA 25/100 TABLET (FP) ONE (10:34)
[2024-04-12] MEDS ORDERED: methylPREDNISolone NA SUCC 125 MG/2 ML VIAL ONE (10:35)
[2024-04-12 10:41] VITALS: BMI 18.8
[2024-04-12] MEDS: methylPREDNISolone NA SUCC 125 MG/2 ML VIAL IVPUSH ONE (10:54)
[2024-04-12 11:01] LABS: VENOUS BASE EXCESS 4.7 mmol/L (-2-2); VENOUS O2 SATURATION 70.1 % (70-80); VENOUS PCO2 50.4 mmHg (38-52); VENOUS PH 7.401 (7.310-7.410)
[2024-04-12 11:03] LABS: EOS % 0.9 % (0-4.5); HEMATOCRIT 38.1 % (35.4-49); HEMOGLOBIN 12.7 GM/dL (11.7-16.9); LYMPH % 14.2 % (8-40); MCH 30.7 pg (25.7-33.7); MCHC 33.3 g/dl (32.0-35.9); MEAN CELL VOLUME 92.2 fl (80-96); MEAN PLT VOLUME 7.5 fl (7.5-11.1); MONO % 5.2 % (3.8-10.2); NEUT % 78.7 % (42.8-82.8); PLATELET COUNT 288 10^3/uL (134-434); RBC 4.13 M/mm3 (4.00-5.60); RDW 13.6 % (11.9-15.9)
[2024-04-12 11:12] LABS: INR 1.08 (0.83-1.09); PROTHROMBIN TIME (PATIENT) 12.4 SEC (9.7-13.0)
[2024-04-12 11:19] LABS: POTASSIUM 4.6 mmol/L (3.5-5.1)
[2024-04-12 11:23] LABS: CALCIUM 9.8 mg/dL (8.5-10.1)
[2024-04-12 11:24] LABS: BLOOD UREA NITROGEN 10.8 mg/dL (7-18); MAGNESIUM 2.2 mg/dL (1.8-2.4)
[2024-04-12 11:27] LABS: CREATININE 0.6 mg/dL (0.55-1.3)
[2024-04-12 11:28] LABS: BILIRUBIN,TOTAL 0.5 mg/dL (0.2-1)
[2024-04-12 11:32] LABS: N-TERMINAL BNP 52.8 pg/ml (5-125)
[2024-04-12 15:02] VITALS: BP 155/84; PULSE 100; RESP 20; TEMP 98
== END 2024-04-12 15:02 | disposition home or self-care (01) ==
LOC: JER 09:58
PROC: 3E033GC Introduction of Other Therapeutic Substance into Peripheral Vein, Percutaneous Approach (ICD-10-PCS; principal; 2024-04-12)
PROC: 3E0F7GC Introduction of Other Therapeutic Substance into Respiratory Tract, Via Natural or Artificial Opening (ICD-10-PCS; 2024-04-12)
DX: J44.1 Chronic obstructive pulmonary disease with (acute) exacerbation (principal); J90 Pleural effusion, not elsewhere classified; R06.02 Shortness of breath; Z20.822 Contact with and (suspected) exposure to COVID-19
CPT/HCPCS: 0241U-QW; 36415; 71045-TC-FY; 80053; 82803; 83735; 83880; 84484; 85025; 85610; 85730; 93005; 93010; 99284-25

== ENCOUNTER 2024-12-29 16:00 | Observation (INO) | payer OTHER ==
[2024-12-29 18:29] LABS: ABSOLUTE IMMATURE GRANULOCYTES 0.03 x10^3/uL (0.0-0.031); BASOPHILS # 0.03 x10^3/uL (0.01-0.08); HEMATOCRIT 40.2 % (40.1-51.0); HEMOGLOBIN 12.8 g/dL (13.7-17.5); MCHC 31.8 g/dl (32.3-36.5); MEAN CELL VOLUME 92.8 fl (79.0-92.2); MONOCYTE # 0.72 x10^3/uL (0.30-0.82); MONOCYTE % 7.4 % (5.3-12.2); PLATELET COUNT 313 x10^3/uL (163-337); RDW 13.1 % (12.2-16.1)
[2024-12-29 18:38] LABS: INR 1.23 (0.83-1.09); PROTHROMBIN TIME (PATIENT) 13.4 SEC (9.7-13.0)
[2024-12-29 18:41] LABS: ACTIVATED PTT 39.6 SECONDS (25.2-36.5)
[2024-12-29 18:57] LABS: POTASSIUM 3.9 mmol/L (3.5-5.1)
[2024-12-29 19:01] LABS: ALBUMIN 4.1 g/dl (3.4-5.0); CALCIUM 9.6 mg/dL (8.5-10.1)
[2024-12-29 19:02] LABS: BLOOD UREA NITROGEN 14.6 mg/dL (7-18)
[2024-12-29 19:04] LABS: CREATININE 0.7 mg/dL (0.55-1.3)
[2024-12-29 19:06] LABS: BILIRUBIN,TOTAL 0.7 mg/dL (0.2-1); TOT PROT 7.2 g/dl (6.4-8.2)
[2024-12-29] MEDS ORDERED: CEFTRIAXONE 1 G/50 ML PREMIX 50 ML IVPB ONE (22:37)
[2024-12-29] MEDS ORDERED: AZITHROMYCIN IVPB 500 MG/250 ML BAG IVPB ONE (22:37)
[2024-12-29 23:07] LABS: EPI CELLS 15 /uL (0-25.1); HYALINE CASTS 1 /uL (0-3.1); PH,URINE 5.5 (5.0-8.0); URINE APPEARANCE CLEAR; URINE BACTERIA 7 /uL (0-1359); URINE BILIRUBIN NEGATIVE (NEGATIVE); URINE COLOR YELLOW; URINE GLUCOSE (UA) NEGATIVE (NEGATIVE); URINE KETONE 2+ (NEGATIVE); URINE LEUK ESTERASE TRACE (NEGATIVE); URINE NITRITE NEGATIVE (NEGATIVE); URINE PROTEIN TRACE (NEGATIVE); URINE RBC 26 /uL (0-23.9); URINE UROBILINOGEN 0.2 mg/dL (0.2-1.0); URINE WBC 21 /uL (0-25.8)
[2024-12-29] MEDS: CEFTRIAXONE 1 GM in DEXTROSE 5%-WATER - 100 ML IVPB ONE (23:10)
[2024-12-29] MEDS: AZITHROMYCIN IVPB 500 MG in DEXTROSE 5%-WATER - 250 ML IVPB ONE (23:14)
[2024-12-30] MEDS ORDERED: ALBUTEROL SO4 0.083% IH SOL 2.5 MG/3 ML VIAL.NEB. NEB PRN (03:37)
[2024-12-30] MEDS: SODIUM CHLORIDE 1,000 ML IV SCH (04:17)
[2024-12-30 05:02] VITALS: BMI 27.2
[2024-12-30] MEDS: HEPARIN NA (PORCINE) 5,000 UNITS/ML 1ML VIAL SQ SCH (06:23)
[2024-12-30] MEDS ORDERED: ALBUTEROL SO4 HFA INHALER IH PRN (08:47)
[2024-12-30] MEDS ORDERED: ARIPiprazole 2 MG TABLET PO SCH ×3 (09:00→10:00)
[2024-12-30] MEDS: LEVOTHYROXINE NA 25 MCG TABLET (FP) PO SCH (10:06)
[2024-12-30] MEDS: ATORVASTATIN CA 80 MG TABLET (FP) PO SCH (10:06)
[2024-12-30] MEDS: ESCITALOPRAM OXALATE 10 MG TABLET PO SCH (10:10)
[2024-12-30] MEDS: AZITHROMYCIN IVPB 500 MG/250 ML BAG IVPB SCH (10:11)
[2024-12-30] MEDS: CEFTRIAXONE 1 G/50 ML PREMIX 50 ML IVPB SCH (10:55)
[2024-12-30] MEDS: ARIPiprazole 2 MG TABLET PO SCH (10:55)
[2024-12-30] MEDS: BUDESONIDE/FORMETEROL FUMARATE 160/4.5 mcg INHALER IH SCH (10:55)
[2024-12-30] MEDS: DUTASTERIDE 0.5 MG CAP (FP) PO SCH (10:55)
[2024-12-30] MEDS: predniSONE 20 MG TABLET (UD) PO ONE (11:59)
[2024-12-30] MEDS: GABAPENTIN 300 MG CAPSULE PO SCH (13:30)
[2024-12-30] MEDS: cloZAPine 25 MG TABLET PO SCH (16:36)
[2024-12-30] MEDS: DIVALPROEX SODIUM 250 MG TABLET E.C. PO SCH (21:00)
[2024-12-30] MEDS: LOPERAMIDE HCL 1 MG/5 ML UNIT DOSE CUP PO SCH (21:52)
[2024-12-31 08:16] LABS: HEMATOCRIT 39.2 % (40.1-51.0); HEMOGLOBIN 12.5 g/dL (13.7-17.5); MCHC 31.9 g/dl (32.3-36.5); MEAN CELL VOLUME 92.5 fl (79.0-92.2); MEAN PLT VOLUME 9.1 fl (9.4-12.4); PLATELET COUNT 285 x10^3/uL (163-337); RDW 13.2 % (12.2-16.1)
[2024-12-31 08:38] VITALS: RESP 20
[2024-12-31 08:43] LABS: POTASSIUM 3.5 mmol/L (3.5-5.1)
[2024-12-31 08:58] LABS: CALCIUM 9.1 mg/dL (8.5-10.1)
[2024-12-31 08:59] LABS: ALBUMIN 3.5 g/dl (3.4-5.0); BLOOD UREA NITROGEN 16.1 mg/dL (7-18)
[2024-12-31 09:02] LABS: CREATININE 0.6 mg/dL (0.55-1.3)
[2024-12-31 09:03] LABS: BILIRUBIN,TOTAL 0.3 mg/dL (0.2-1); TOT PROT 6.3 g/dl (6.4-8.2)
[2024-12-31] MEDS: AZITHROMYCIN 250 MG TABLET PO SCH (09:51)
[2024-12-31] MEDS: predniSONE 20 MG TABLET (UD) PO SCH (09:51)
[2024-12-31] MEDS: LOPERAMIDE HCL 2 MG CAPSULE PO ONE (09:57)
[2024-12-31 12:31] VITALS: BP 117/71; PULSE 82; TEMP 98.1
== END 2024-12-31 13:02 ==
LOC: JER 16:00 → INTOOBSV 12-30 00:11 → JERBED 12-30 00:11 → UNDOADMOB 12-30 00:11 → JERBED 12-30 03:37 → J6S 12-30 04:20 → JERBED 12-30 04:20 → J6S 12-30 04:20
PROVIDERS: ADMIT Hospitalist; ATTEND Internal Medicine
PROC: 3E03329 Introduction of Other Anti-infective into Peripheral Vein, Percutaneous Approach (ICD-10-PCS; principal; 2024-12-30)
PROC: 3E023GC Introduction of Other Therapeutic Substance into Muscle, Percutaneous Approach (ICD-10-PCS; 2024-12-30)
PROC: 3E0337Z Introduction of Electrolytic and Water Balance Substance into Peripheral Vein, Percutaneous Approach (ICD-10-PCS; 2024-12-30)
DX: J90 Pleural effusion, not elsewhere classified (principal); J18.9 Pneumonia, unspecified organism; J44.9 Chronic obstructive pulmonary disease, unspecified; E87.1 Hypo-osmolality and hyponatremia; G20.A1 Parkinson's disease without dyskinesia, without mention of fluctuations; D64.9 Anemia, unspecified; K70.9 Alcoholic liver disease, unspecified; F31.9 Bipolar disorder, unspecified; F20.9 Schizophrenia, unspecified; G89.29 Other chronic pain; M54.50 Low back pain, unspecified; Z87.891 Personal history of nicotine dependence
CPT/HCPCS: 36415; 71045-TC-FY; 74176-TC; 80053; 81003; 83605; 83690; 84484; 85025; 85027; 85610; 85730; 86850; 86900; 86901; 87086; 87635; 93005; 93010; 96361; 96365; 96366; 96367; 96368; 96372; 97116-GP; 97161-GP; 99285-25; G0378; J1644

== ENCOUNTER 2025-04-24 02:14 | Inpatient (IN) | payer OTHER ==
[2025-04-24] MEDS ORDERED: MAGNESIUM SULFATE IN WATER 2 GM/50 ML IVPB IVPB ONE (03:25)
[2025-04-24] MEDS ORDERED: ALBUTEROL SO4 2.5/IPRATROPIUM 0.5 INH SOL 3 ML VIAL.NEB. NEB ONE ×2 (03:25→09:07)
[2025-04-24] MEDS: ALBUTEROL SO4 2.5/IPRATROPIUM 0.5 INH SOL 3 ML VIAL.NEB. NEB ONE (03:36)
[2025-04-24] MEDS: MAGNESIUM SULF 50% (8.12 MEQ/2 ML-1 GM VIAL) IVPB ONE (03:37)
[2025-04-24 04:12] LABS: ABSOLUTE IMMATURE GRANULOCYTES 0.07 x10^3/uL (0.0-0.031); BASOPHILS # 0.01 x10^3/uL (0.01-0.08); EOSINOPHIL % 0.0 % (0.8-7.0); EOSINOPHILS # 0.00 x10^3/uL (0.04-0.54); MCHC 32.0 g/dl (32.3-36.5); MEAN CELL VOLUME 92.7 fl (79.0-92.2); MEAN PLT VOLUME 9.4 fl (9.4-12.4); MONOCYTE # 1.23 x10^3/uL (0.30-0.82); MONOCYTE % 10.0 % (5.3-12.2); RDW 14.2 % (12.2-16.1)
[2025-04-24 04:13] LABS: BG HCT 41.0 % (35.4-49); VENOUS BASE EXCESS 18.2 mmol/L (-2-2); VENOUS O2 SATURATION 92.8 % (70-80); VENOUS PCO2 61.6 mmHg (38-52); VENOUS PH 7.483 (7.310-7.410)
[2025-04-24 05:34] LABS: GLUCOSE,RANDOM 99 mg/dL (74-106); TOT PROT 6.2 g/dl (6.4-8.2)
[2025-04-24 05:36] LABS: CO2 41 mmol/L (21-32)
[2025-04-24 05:37] LABS: ALK PHOS 59 U/L (40-150)
[2025-04-24 05:40] LABS: CREATININE 0.72 mg/dL (0.55-1.3); SGOT/AST 22 U/L (5-34)
[2025-04-24 05:46] LABS: SGPT/ALT < 6 U/L (0-55)
[2025-04-24] MEDS ORDERED: PIPERACILLIN/TAZOB 3.375 GM 3.375 GM/50 ML BAG IVPB ONE ×2 (08:21→18:14)
[2025-04-24] MEDS: SODIUM CHLORIDE 0.9% 500 ML INFUS.BAG IV ONE (08:32)
[2025-04-24] MEDS: PIPERACILLIN/TAZOB 3.375 GM 3.375 GM in DEXTROSE 5%-WATER - 50 ML IVPB ONE (08:32)
[2025-04-24] MEDS: ALBUTEROL SO4 2.5/IPRATROPIUM 0.5 INH SOL 3 ML VIAL.NEB. NEB SCH (08:46)
[2025-04-24] MEDS ORDERED: VANCOMYCIN/WATER 1250 MG 1,250 MG/250 ML BAG IVPB ONE (09:07)
[2025-04-24] MEDS: VANCOMYCIN/WATER 1250 MG 1,250 MG/250 ML BAG IVPB ONE (09:19)
[2025-04-24 09:24] LABS: N-TERMINAL BNP 192.8 pg/mL (0-299.9)
[2025-04-24] MEDS ORDERED: ACETAMINOPHEN 325 MG TABLET (FP) PO PRN (13:28)
[2025-04-24] MEDS ORDERED: PATIENT'S OWN MEDICATION (NON-FORMULARY) (Gabapentin [Gabapentin] 600 MG Tablet) PO SCH (14:00)
[2025-04-24] MEDS ORDERED: methylPREDNISolone NA SUCC 125 MG/2 ML VIAL ONE (14:49)
[2025-04-24] MEDS ORDERED: GABAPENTIN 300 MG CAPSULE ONE ×2 (14:49→21:28)
[2025-04-24] MEDS ORDERED: FUROSEMIDE 40 MG/4 ML INJECTABLE VIAL ONE (14:49)
[2025-04-24] MEDS ORDERED: HEPARIN NA (PORCINE) 5,000 UNITS/ML 1ML VIAL ONE ×2 (14:49→21:28)
[2025-04-24] MEDS: HEPARIN NA (PORCINE) 5,000 UNITS/ML 1ML VIAL SQ SCH (15:03)
[2025-04-24] MEDS: FUROSEMIDE 40 MG/4 ML INJECTABLE VIAL IVPUSH SCH (15:03)
[2025-04-24] MEDS: GABAPENTIN 300 MG CAPSULE PO SCH (15:03)
[2025-04-24] MEDS: methylPREDNISolone NA SUCC 40 MG/1 ML VIAL IVPUSH SCH (15:03)
[2025-04-24] MEDS: CLOZAPINE 50 MG PO SCH (16:17)
[2025-04-24] MEDS: PIPERACILLIN/TAZOB 3.375 GM 3.375 GM in DEXTROSE 5%-WATER - 50 ML IVPB SCH (18:23)
[2025-04-24] MEDS ORDERED: DIVALPROEX SODIUM 250 MG TABLET E.C. ONE (19:59)
[2025-04-24] MEDS: DIVALPROEX SODIUM 250 MG TABLET E.C. PO SCH (20:17)
[2025-04-24] MEDS ORDERED: methylPREDNISolone NA SUCC 40 MG/1 ML VIAL ONE (21:28)
[2025-04-24] MEDS ORDERED: POLYETHYLENE GLYCOL (HEALTHYLAX) 3350 17 GM PACKET ONE (21:28)
[2025-04-24] MEDS ORDERED: CARBIDOPA/LEVODOPA 25/100 TABLET (FP) ONE (21:28)
[2025-04-24] MEDS: BUDESONIDE/FORMETEROL FUMARATE 160/4.5 mcg INHALER IH SCH (21:35)
[2025-04-24] MEDS: POLYETHYLENE GLYCOL (HEALTHYLAX) 3350 17 GM PACKET PO SCH (21:35)
[2025-04-25] MEDS ORDERED: ALBUTEROL SO4 2.5/IPRATROPIUM 0.5 INH SOL 3 ML VIAL.NEB. NEB ONE ×2 (00:01→05:01)
[2025-04-25] MEDS: ALBUTEROL SO4 2.5/IPRATROPIUM 0.5 INH SOL 3 ML VIAL.NEB. NEB PRN (00:03)
[2025-04-25] MEDS ORDERED: methylPREDNISolone NA SUCC 40 MG/1 ML VIAL ONE ×2 (03:10→09:09)
[2025-04-25] MEDS ORDERED: PIPERACILLIN/TAZOB 3.375 GM 3.375 GM/50 ML BAG IVPB ONE (03:11)
[2025-04-25] MEDS ORDERED: GABAPENTIN 300 MG CAPSULE ONE (05:40)
[2025-04-25] MEDS ORDERED: CARBIDOPA/LEVODOPA 25/100 TABLET (FP) ONE (05:40)
[2025-04-25] MEDS ORDERED: HEPARIN NA (PORCINE) 5,000 UNITS/ML 1ML VIAL ONE (05:40)
[2025-04-25] MEDS ORDERED: LEVOTHYROXINE NA 25 MCG TABLET (FP) ONE (05:40)
[2025-04-25] MEDS: LEVOTHYROXINE NA 25 MCG TABLET (FP) PO SCH (06:04)
[2025-04-25] MEDS ORDERED: TAMSULOSIN HCL 0.4 MG CAP ONE (09:01)
[2025-04-25] MEDS: TAMSULOSIN HCL 0.4 MG CAP PO SCH (09:04)
[2025-04-25] MEDS ORDERED: PATIENT'S OWN MEDICATION (NON-FORMULARY) (Tizanidine Hcl [Tizanidine Hcl] 2 MG Tablet) PO SCH (10:00)
[2025-04-25 11:02] VITALS: BMI 25.1
[2025-04-25] MEDS: PANTOPRAZOLE 40 MG TABLET PO SCH (11:14)
[2025-04-25] MEDS: LORATADINE 10 MG TABLET PO SCH (11:14)
[2025-04-25] MEDS: CHOLECALCIFEROL (VIT D3) 1,000 UNIT (25 MCG) TABLET PO SCH (11:14)
[2025-04-25] MEDS: ASCORBIC ACID 500 MG TABLET (FP) PO SCH (11:14)
[2025-04-25] MEDS: DUTASTERIDE 0.5 MG CAP (FP) PO SCH (12:31)
[2025-04-25] MEDS: ROFLUMILAST 500 MCG TABLET PO SCH (12:31)
[2025-04-25] MEDS: ESCITALOPRAM OXALATE 10 MG TABLET PO SCH (12:32)
[2025-04-25] MEDS: ATORVASTATIN CA 80 MG TABLET (FP) PO SCH (21:43)
[2025-04-26 08:17] LABS: ABSOLUTE IMMATURE GRANULOCYTES 0.07 x10^3/uL (0.0-0.031); BASOPHILS # 0.01 x10^3/uL (0.01-0.08); EOSINOPHIL % 0.0 % (0.8-7.0); EOSINOPHILS # 0.00 x10^3/uL (0.04-0.54); MCHC 32.0 g/dl (32.3-36.5); MEAN CELL VOLUME 92.8 fl (79.0-92.2); MEAN PLT VOLUME 9.8 fl (9.4-12.4); MONOCYTE # 0.36 x10^3/uL (0.30-0.82); MONOCYTE % 3.9 % (5.3-12.2); RDW 13.8 % (12.2-16.1)
[2025-04-26 08:24] LABS: GLUCOSE,RANDOM 147 mg/dL (74-106); TOT PROT 5.6 g/dl (6.4-8.2)
[2025-04-26 08:25] LABS: CO2 49 mmol/L (21-32)
[2025-04-26 08:26] LABS: ALK PHOS 50 U/L (40-150)
[2025-04-26 08:29] LABS: SGOT/AST 14 U/L (5-34); SGPT/ALT < 6 U/L (0-55)
[2025-04-26 08:30] LABS: CREATININE 0.66 mg/dL (0.55-1.3)
[2025-04-26] MEDS: ALBUTEROL SO4 2.5/IPRATROPIUM 0.5 INH SOL 3 ML VIAL.NEB. NEB SCH (11:15)
[2025-04-26] MEDS: POTASSIUM CHLORIDE ORAL LIQUID 20 MEQ/15 ML PO ONE (11:43)
[2025-04-26] MEDS: KCL 10 MEQ IVPB 10 MEQ/100 ML INFUS.BAG IVPB SCH (11:43)
[2025-04-26] MEDS: SODIUM CHLORIDE 250 ML IV STA (12:06)
[2025-04-26] MEDS: PIPERACILLIN/TAZOB 3.375 GM 3.375 GM in DEXTROSE 5%-WATER - 50 ML IVPB SCH ×2 (14:15→17:31)
[2025-04-26] MEDS: methylPREDNISolone NA SUCC 40 MG/1 ML VIAL IVPUSH SCH (17:31)
[2025-04-27 09:10] LABS: ABSOLUTE IMMATURE GRANULOCYTES 0.08 x10^3/uL (0.0-0.031); BASOPHILS # 0.01 x10^3/uL (0.01-0.08); EOSINOPHIL % 0.0 % (0.8-7.0); EOSINOPHILS # 0.00 x10^3/uL (0.04-0.54); MCHC 32.7 g/dl (32.3-36.5); MEAN CELL VOLUME 93.2 fl (79.0-92.2); MEAN PLT VOLUME 9.7 fl (9.4-12.4); MONOCYTE # 0.55 x10^3/uL (0.30-0.82); MONOCYTE % 5.3 % (5.3-12.2); RDW 13.2 % (12.2-16.1)
[2025-04-27] MEDS: POTASSIUM CHLORIDE ORAL LIQUID 20 MEQ/15 ML PO SCH (09:30)
[2025-04-27 09:37] LABS: GLUCOSE,RANDOM 116 mg/dL (74-106)
[2025-04-27 09:38] LABS: CO2 39 mmol/L (21-32)
[2025-04-27 09:42] LABS: CREATININE 0.51 mg/dL (0.55-1.3)
[2025-04-28 12:16] LABS: MCHC 32.1 g/dl (32.3-36.5); MEAN CELL VOLUME 93.0 fl (79.0-92.2); MEAN PLT VOLUME 10.1 fl (9.4-12.4); RDW 13.2 % (12.2-16.1)
[2025-04-28 12:45] LABS: GLUCOSE,RANDOM 119 mg/dL (74-106)
[2025-04-28 12:46] LABS: TOT PROT 5.6 g/dl (6.4-8.2)
[2025-04-28 12:48] LABS: ALK PHOS 51 U/L (40-150)
[2025-04-28 12:51] LABS: CREATININE 0.55 mg/dL (0.55-1.3); SGOT/AST 22 U/L (5-34); SGPT/ALT < 6 U/L (0-55)
[2025-04-28 13:10] LABS: CO2 37 mmol/L (21-32)
[2025-04-28] MEDS: methylPREDNISolone NA SUCC 40 MG/1 ML VIAL IVPUSH SCH (21:59)
[2025-04-29 08:08] LABS: MCHC 32.5 g/dl (32.3-36.5); MEAN CELL VOLUME 91.4 fl (79.0-92.2); MEAN PLT VOLUME 9.9 fl (9.4-12.4); RDW 13.5 % (12.2-16.1)
[2025-04-29 08:29] LABS: GLUCOSE,RANDOM 120.0 mg/dL (74-106)
[2025-04-29 08:31] LABS: CO2 39.0 mmol/L (21-32)
[2025-04-29 08:36] LABS: CREATININE 0.58 mg/dL (0.55-1.3)
[2025-04-30] MEDS: LOPERAMIDE HCL 2 MG CAPSULE PO ONE (04:27)
[2025-04-30 08:24] LABS: MCHC 32.2 g/dl (32.3-36.5); MEAN CELL VOLUME 93.1 fl (79.0-92.2); MEAN PLT VOLUME 10.2 fl (9.4-12.4); RDW 13.7 % (12.2-16.1)
[2025-04-30 08:42] LABS: GLUCOSE,RANDOM 121 mg/dL (74-106); TOT PROT 5.6 g/dl (6.4-8.2)
[2025-04-30 08:43] LABS: CO2 36 mmol/L (21-32)
[2025-04-30 08:45] LABS: ALK PHOS 56 U/L (40-150)
[2025-04-30 08:47] LABS: SGPT/ALT < 6 U/L (0-55)
[2025-04-30 08:48] LABS: CREATININE 0.59 mg/dL (0.55-1.3); SGOT/AST 17 U/L (5-34)
[2025-05-01 09:09] LABS: MCHC 31.5 g/dl (32.3-36.5); MEAN CELL VOLUME 94.2 fl (79.0-92.2); MEAN PLT VOLUME 10.2 fl (9.4-12.4); RDW 13.8 % (12.2-16.1)
[2025-05-01 09:29] VITALS: RESP 18
[2025-05-01 09:34] LABS: TOT PROT 5.7 g/dl (6.4-8.2)
[2025-05-01 09:35] LABS: CO2 36 mmol/L (21-32)
[2025-05-01 09:36] LABS: ALK PHOS 55 U/L (40-150)
[2025-05-01 09:37] LABS: GLUCOSE,RANDOM 101 mg/dL (74-106)
[2025-05-01 09:39] LABS: CREATININE 0.56 mg/dL (0.55-1.3); SGOT/AST 15 U/L (5-34)
[2025-05-01 09:50] LABS: SGPT/ALT < 6 U/L (0-55)
[2025-05-01] MEDS: FLUTICASONE/UMECLIDIN/VILANTER(200-62.5-25 TRELEGY ELLIPTA) INAHLER IH SCH (13:45)
[2025-05-01] MEDS: AMINO ACIDS/PROTEIN HYDROLYS 30 ML LIQUID.PKT PO SCH (17:42)
[2025-05-02] MEDS: FUROSEMIDE 40 MG/4 ML INJECTABLE VIAL IVPUSH SCH (09:25)
[2025-05-02] MEDS: POTASSIUM CHLORIDE ORAL LIQUID 20 MEQ/15 ML PO SCH (09:26)
[2025-05-02] MEDS ORDERED: POTASSIUM CHLORIDE ORAL LIQUID 20 MEQ/15 ML PO SCH (10:00)
[2025-05-03 08:54] VITALS: BP 106/65; PULSE 77; TEMP 97
== END 2025-05-03 13:40 | DRG 139 ==
LOC: JER 02:14 → JERBED 11:34 → J6W TELE 04-25 09:28
PROVIDERS: ADMIT Internal Medicine; ATTEND Internal Medicine
DX: J18.9 Pneumonia, unspecified organism (principal); Z99.81 Dependence on supplemental oxygen; E03.9 Hypothyroidism, unspecified; N40.0 Benign prostatic hyperplasia without lower urinary tract symptoms; F31.9 Bipolar disorder, unspecified; G20.A1 Parkinson's disease without dyskinesia, without mention of fluctuations; D64.9 Anemia, unspecified; J44.0 Chronic obstructive pulmonary disease with (acute) lower respiratory infection; J44.1 Chronic obstructive pulmonary disease with (acute) exacerbation; J96.21 Acute and chronic respiratory failure with hypoxia; E87.6 Hypokalemia; R33.9 Retention of urine, unspecified
CPT/HCPCS: 36415; 71045-TC-FY; 71275-TC; 80048; 80053; 82803; 83735; 83880; 84100; 84484; 85025; 85027; 87637-QW; 93005; 93010; 94640; 97116-GP; 97161-GP; 99285-25

== ENCOUNTER 2025-05-09 03:36 | Inpatient (IN) | payer OTHER ==
[2025-05-09] MEDS ORDERED: methylPREDNISolone NA SUCC 125 MG/2 ML VIAL ONE (04:14)
[2025-05-09] MEDS: methylPREDNISolone NA SUCC 125 MG/2 ML VIAL IVPB ONE (04:16)
[2025-05-09 04:31] LABS: BG HCT 35.0 % (35.4-49); VENOUS BASE EXCESS 9.6 mmol/L (-2-2); VENOUS O2 SATURATION 97.3 % (70-80); VENOUS PCO2 57.9 mmHg (38-52); VENOUS PH 7.412 (7.310-7.410)
[2025-05-09 04:34] LABS: MCHC 32.1 g/dl (32.3-36.5); MEAN CELL VOLUME 94.7 fl (79.0-92.2); MEAN PLT VOLUME 11.0 fl (9.4-12.4); RDW 14.8 % (12.2-16.1)
[2025-05-09 04:43] LABS: INR 1.19 (0.83-1.09); PROTHROMBIN TIME (PATIENT) 13.0 SEC (9.7-13.0)
[2025-05-09 04:46] LABS: ACTIVATED PTT 25.8 SECONDS (25.2-36.5)
[2025-05-09 05:20] LABS: GLUCOSE,RANDOM 144.0 mg/dL (74-106); TOT PROT 5.9 g/dl (6.4-8.2)
[2025-05-09 05:21] LABS: CO2 35.0 mmol/L (21-32)
[2025-05-09 05:24] LABS: LACTIC ACID 2.9 mmol/L (0.4-2.0)
[2025-05-09 05:26] LABS: CREATININE 0.54 mg/dL (0.55-1.3); SGOT/AST 16.0 U/L (5-34); SGPT/ALT 9.0 U/L (0-55)
[2025-05-09 05:27] LABS: ALK PHOS 63.0 U/L (40-150)
[2025-05-09 05:47] LABS: HCV DIAGNOSTIC IN-HOUSE W/RFLX NON-REACTIVE (NONREACTIVE); HIV INTERPRETATION NEGATIVE (NEGATIVE)
[2025-05-09] MEDS ORDERED: PIPERACILLIN/TAZOB 3.375 GM 3.375 GM/50 ML BAG IVPB ONE (06:42)
[2025-05-09] MEDS: PIPERACILLIN/TAZOB 3.375 GM 3.375 GM in DEXTROSE 5%-WATER - 50 ML IVPB ONE (06:55)
[2025-05-09] MEDS: GABAPENTIN 300 MG CAPSULE PO SCH (15:09)
[2025-05-09] MEDS: methylPREDNISolone NA SUCC 40 MG/1 ML VIAL IVPUSH SCH (15:09)
[2025-05-09] MEDS: ALBUTEROL SO4 0.083% IH SOL 2.5 MG/3 ML VIAL.NEB. NEB SCH (15:09)
[2025-05-09] MEDS ORDERED: GABAPENTIN 300 MG CAPSULE ONE (15:17)
[2025-05-09] MEDS ORDERED: ALBUTEROL SO4 0.083% IH SOL 2.5 MG/3 ML VIAL.NEB. NEB ONE (15:18)
[2025-05-09] MEDS ORDERED: CARBIDOPA/LEVODOPA 25/100 TABLET (FP) ONE (15:18)
[2025-05-09] MEDS ORDERED: methylPREDNISolone NA SUCC 40 MG/1 ML VIAL ONE (15:18)
[2025-05-09] MEDS ORDERED: MAG HYDROX/AL HYDROX/SIMETH 30 ML UNIT-DOSE CUP ONE (15:41)
[2025-05-09] MEDS ORDERED: ALBUTEROL SO4 0.083% IH SOL 2.5 MG/3 ML VIAL.NEB. NEB SCH (16:00)
[2025-05-09 18:36] LABS: EPI CELLS 7 /uL (0-25.1); HYALINE CASTS 0 /uL (0-3.1); URINE APPEARANCE CLEAR; URINE BILIRUBIN NEGATIVE (NEGATIVE); URINE COLOR YELLOW; URINE GLUCOSE (UA) NEGATIVE (NEGATIVE); URINE KETONE TRACE (NEGATIVE); URINE LEUK ESTERASE TRACE (NEGATIVE); URINE NITRITE POSITIVE (NEGATIVE); URINE PROTEIN 1+ (NEGATIVE); URINE RBC 15 /uL (0-23.9); URINE UROBILINOGEN 0.2 mg/dL (0.2-1.0); URINE WBC 17 /uL (0-25.8)
[2025-05-09] MEDS: BUDESONIDE/FORMETEROL FUMARATE 160/4.5 mcg INHALER IH SCH (21:46)
[2025-05-09] MEDS: HEPARIN NA (PORCINE) 5,000 UNITS/ML 1ML VIAL SQ SCH (21:46)
[2025-05-10] MEDS: LEVOTHYROXINE NA 25 MCG TABLET (FP) PO SCH (06:55)
[2025-05-10 07:18] LABS: MCHC 32.0 g/dl (32.3-36.5); MEAN CELL VOLUME 93.9 fl (79.0-92.2); MEAN PLT VOLUME 10.9 fl (9.4-12.4); RDW 14.6 % (12.2-16.1)
[2025-05-10] MEDS: TAMSULOSIN HCL 0.4 MG CAP PO SCH (08:13)
[2025-05-10] MEDS ORDERED: PATIENT'S OWN MEDICATION (NON-FORMULARY) (Tizanidine Hcl [Tizanidine Hcl] 2 MG Tablet) PO SCH (10:00)
[2025-05-10] MEDS: ESCITALOPRAM OXALATE 10 MG TABLET PO SCH (10:07)
[2025-05-10] MEDS: ATORVASTATIN CA 80 MG TABLET (FP) PO SCH (10:10)
[2025-05-10] MEDS: PANTOPRAZOLE 40 MG TABLET PO SCH (10:10)
[2025-05-10] MEDS: ROFLUMILAST 500 MCG TABLET PO SCH (10:11)
[2025-05-10] MEDS: DUTASTERIDE 0.5 MG CAP (FP) PO SCH (10:12)
[2025-05-10] MEDS: TIOTROPIUM BROMIDE 2.5 MCG (SPIRIVA) RESPIMAT INHALER IH SCH (10:27)
[2025-05-10 13:13] LABS: GLUCOSE,RANDOM 118.0 mg/dL (74-106)
[2025-05-10 13:14] LABS: CO2 40.0 mmol/L (21-32)
[2025-05-10 13:43] LABS: CREATININE 0.47 mg/dL (0.55-1.3)
[2025-05-10] MEDS: methylPREDNISolone NA SUCC 40 MG/1 ML VIAL IVPUSH SCH (14:49)
[2025-05-10 15:49] LABS: LACTIC ACID 3.0 mmol/L (0.4-2.0)
[2025-05-11 07:42] LABS: MCHC 31.5 g/dl (32.3-36.5); MEAN CELL VOLUME 94.9 fl (79.0-92.2); MEAN PLT VOLUME 11.1 fl (9.4-12.4); RDW 15.0 % (12.2-16.1)
[2025-05-11 08:54] LABS: GLUCOSE,RANDOM 129.0 mg/dL (74-106); TOT PROT 5.3 g/dl (6.4-8.2)
[2025-05-11 08:55] LABS: CO2 34.0 mmol/L (21-32)
[2025-05-11 08:57] LABS: ALK PHOS 58.0 U/L (40-150)
[2025-05-11 09:00] LABS: CREATININE 0.42 mg/dL (0.55-1.3); SGOT/AST 23.0 U/L (5-34); SGPT/ALT 6.0 U/L (0-55)
[2025-05-12 07:05] LABS: MCHC 32.1 g/dl (32.3-36.5); MEAN CELL VOLUME 95.4 fl (79.0-92.2); MEAN PLT VOLUME 11.1 fl (9.4-12.4); RDW 15.5 % (12.2-16.1)
[2025-05-12 07:26] LABS: GLUCOSE,RANDOM 119 mg/dL (74-106); TOT PROT 5.4 g/dl (6.4-8.2)
[2025-05-12 07:27] LABS: CO2 38 mmol/L (21-32)
[2025-05-12 07:32] LABS: SGOT/AST 27 U/L (5-34)
[2025-05-12 08:34] LABS: ALK PHOS 63 U/L (40-150); CREATININE 0.45 mg/dL (0.55-1.3); SGPT/ALT < 6 U/L (0-55)
[2025-05-13 07:04] LABS: MCHC 31.9 g/dl (32.3-36.5); MEAN CELL VOLUME 95.7 fl (79.0-92.2); MEAN PLT VOLUME 10.8 fl (9.4-12.4); RDW 15.7 % (12.2-16.1)
[2025-05-13 08:06] LABS: GLUCOSE,RANDOM 141.0 mg/dL (74-106)
[2025-05-13 08:07] LABS: CO2 38.0 mmol/L (21-32)
[2025-05-13 08:13] LABS: CREATININE 0.59 mg/dL (0.55-1.3)
[2025-05-13 11:49] LABS: ARTERIAL BLD GAS O2 SATURATION 96.3 % (95-98); ARTERIAL BLOOD GAS BASE EXCESS 22.2 mmol/L (-2-2); ARTERIAL BLOOD GAS PCO2 63.60 mmHg (35-45); ARTERIAL BLOOD GAS PO2 79.8 mmHg (80-100); BG HCT 32.0 % (35.4-49); O2 CONTENT 1.49 % vol
[2025-05-13 11:50] LABS: ALLENS TEST POSITIVE
[2025-05-13] MEDS: PIPERACILLIN/TAZOB 3.375 GM 3.375 GM in DEXTROSE 5%-WATER - 50 ML IVPB SCH (15:40)
[2025-05-15] MEDS: methylPREDNISolone NA SUCC 40 MG/1 ML VIAL IVPUSH SCH (21:07)
[2025-05-16 13:04] LABS: MCHC 31.9 g/dl (32.3-36.5); MEAN CELL VOLUME 96.3 fl (79.0-92.2); MEAN PLT VOLUME 11.3 fl (9.4-12.4); RDW 15.4 % (12.2-16.1)
[2025-05-16 13:38] LABS: CO2 36.0 mmol/L (21-32); CREATININE 0.33 mg/dL (0.55-1.3); GLUCOSE,RANDOM 151.0 mg/dL (74-106)
[2025-05-17] MEDS ORDERED: DOCUSATE SODIUM 100 MG CAPSULE (FP) PO PRN (14:28)
[2025-05-17] MEDS ORDERED: PIPERACILLIN/TAZOBACTAM 3.375 GM VIAL IVPB ONE (17:27)
[2025-05-18 07:37] LABS: MCHC 31.7 g/dl (32.3-36.5); MEAN CELL VOLUME 95.6 fl (79.0-92.2); MEAN PLT VOLUME 10.8 fl (9.4-12.4); RDW 15.6 % (12.2-16.1)
[2025-05-18 08:57] LABS: CREATININE 0.31 mg/dL (0.55-1.3); GLUCOSE,RANDOM 113.0 mg/dL (74-106)
[2025-05-18 08:58] LABS: CO2 38.0 mmol/L (21-32)
[2025-05-18] MEDS: AMINO ACIDS/PROTEIN HYDROLYS 30 ML LIQUID.PKT PO SCH (10:09)
[2025-05-18] MEDS: POLYETHYLENE GLYCOL (HEALTHYLAX) 3350 17 GM PACKET PO SCH (10:09)
[2025-05-19] MEDS: PROPOFOL 200 MG/20 ML VIAL IVPUSH ONE (15:15)
[2025-05-19] MEDS: ROCURONIUM BROMIDE 50 MG/5 ML VIAL IVPUSH ONE (15:15)
[2025-05-19] MEDS: SODIUM CHLORIDE 1,000 ML IV STA (15:25)
[2025-05-19 16:18] LABS: ALLENS TEST POSITIVE; ARTERIAL BLD GAS O2 SATURATION 97.3 % (95-98); ARTERIAL BLOOD GAS BASE EXCESS 6.2 mmol/L (-2-2); ARTERIAL BLOOD GAS PCO2 66.20 mmHg (35-45); ARTERIAL BLOOD GAS PO2 105.4 mmHg (80-100); BG HCT 32.0 % (35.4-49); O2 CONTENT 1.51 % vol
[2025-05-19 16:19] LABS: VENT MODE A/C; VENT RATE 14
[2025-05-19] MEDS: ALBUTEROL SO4 2.5/IPRATROPIUM 0.5 INH SOL 3 ML VIAL.NEB. NEB SCH (16:23)
[2025-05-19] MEDS: PROPOFOL 1,000,000 MCG/100 ML VIAL IVPB SCH (16:50)
[2025-05-19] MEDS: ENOXAPARIN NA (PORCINE) 40 MG/0.4 ML DISP.SYRIN SQ SCH (17:15)
[2025-05-19] MEDS: methylPREDNISolone NA SUCC 40 MG/1 ML VIAL IVPUSH SCH (17:16)
[2025-05-19] MEDS: VANCOMYCIN/WATER FOR INJ (PEG) 1,000 MG/200 ML BAG IVPB SCH (17:16)
[2025-05-19] MEDS: DEXMEDETOMIDINE PREMIX 400 MCG/100 ML BAG IVPB SCH (17:17)
[2025-05-19] MEDS: MEROPENEM 1 GM in DEXTROSE 5%-WATER 100 ML IVPB SCH (17:17)
[2025-05-19] MEDS: DEXTROSE 5%-0.45% SALINE 1,000 ML IV SCH (17:22)
[2025-05-19] MEDS: VANCOMYCIN/WATER FOR INJ (PEG) 1,000 MG/200 ML BAG IVPB ONE (17:25)
[2025-05-19 18:24] LABS: MCHC 30.8 g/dl (32.3-36.5); MEAN CELL VOLUME 98.4 fl (79.0-92.2); MEAN PLT VOLUME 11.3 fl (9.4-12.4); RDW 16.2 % (12.2-16.1)
[2025-05-19 18:48] LABS: GLUCOSE,RANDOM 183.0 mg/dL (74-106); TOT PROT 5.3 g/dl (6.4-8.2)
[2025-05-19 18:49] LABS: CO2 33.0 mmol/L (21-32)
[2025-05-19 18:54] LABS: CREATININE 0.38 mg/dL (0.55-1.3); SGOT/AST 43.0 U/L (5-34); SGPT/ALT 34.0 U/L (0-55)
[2025-05-19 19:01] LABS: ALK PHOS 82.0 U/L (40-150)
[2025-05-19 19:59] LABS: LACTIC ACID 3.3 mmol/L (0.4-2.0)
[2025-05-19] MEDS: DEXTROSE 5%-LACTATED RINGERS 1,000 ML IV SCH (20:01)
[2025-05-20 07:06] LABS: INR 1.25 (0.83-1.09); PROTHROMBIN TIME (PATIENT) 13.7 SEC (9.7-13.0)
[2025-05-20 07:07] LABS: MCHC 31.2 g/dl (32.3-36.5); MEAN CELL VOLUME 97.6 fl (79.0-92.2); MEAN PLT VOLUME 10.9 fl (9.4-12.4); RDW 15.9 % (12.2-16.1)
[2025-05-20 07:08] LABS: ACTIVATED PTT 28.7 SECONDS (25.2-36.5)
[2025-05-20 07:22] LABS: GLUCOSE,RANDOM 130.0 mg/dL (74-106); TOT PROT 4.3 g/dl (6.4-8.2)
[2025-05-20 07:24] LABS: CO2 37.0 mmol/L (21-32)
[2025-05-20 07:27] LABS: SGOT/AST 23.0 U/L (5-34); SGPT/ALT 26.0 U/L (0-55)
[2025-05-20 07:28] LABS: ALK PHOS 67.0 U/L (40-150); CREATININE 0.3 mg/dL (0.55-1.3)
[2025-05-20] MEDS: ATORVASTATIN CA 80 MG TABLET (FP) NGT SCH (09:49)
[2025-05-20] MEDS: POTASSIUM PHOSPHATE 30 MM in SODIUM CHLORIDE 250 ML IVPB ONE (09:51)
[2025-05-20] MEDS ORDERED: methylPREDNISolone NA SUCC 40 MG/1 ML VIAL IVPUSH SCH (10:00)
[2025-05-20] MEDS: PANTOPRAZOLE SODIUM 40 MG VIAL IVPUSH SCH (11:43)
[2025-05-20 12:28] VITALS: BMI 21.2
[2025-05-20] MEDS: VANCOMYCIN 1,000 MG in DEXTROSE 5%-WATER - 250 ML IVPB SCH (16:35)
[2025-05-20] MEDS: MEROPENEM 1 GM in DEXTROSE 5%-WATER 100 ML IVPB SCH ×2 (17:27→17:29)
[2025-05-20 20:56] LABS: N-TERMINAL BNP 264.9 pg/mL (0-299.9)
[2025-05-21] MEDS: CARBIDOPA/LEVODOPA 25/100 TABLET (FP) NGT SCH (06:38)
[2025-05-21 06:43] LABS: ARTERIAL BLD GAS O2 SATURATION 94.0 % (95-98); ARTERIAL BLOOD GAS BASE EXCESS 12.0 mmol/L (-2-2); ARTERIAL BLOOD GAS PCO2 51.80 mmHg (35-45); ARTERIAL BLOOD GAS PO2 66.4 mmHg (80-100); BG HCT 29.0 % (35.4-49); O2 CONTENT 1.28 % vol
[2025-05-21 06:44] LABS: ALLENS TEST POSITIVE
[2025-05-21 06:45] LABS: VENT MODE A/C; VENT RATE 14
[2025-05-21 06:51] LABS: MCHC 32.2 g/dl (32.3-36.5); MEAN CELL VOLUME 95.4 fl (79.0-92.2); MEAN PLT VOLUME 11.0 fl (9.4-12.4); RDW 15.7 % (12.2-16.1)
[2025-05-21 07:25] LABS: GLUCOSE,RANDOM 206.0 mg/dL (74-106)
[2025-05-21 07:26] LABS: TOT PROT 4.3 g/dl (6.4-8.2)
[2025-05-21 07:27] LABS: CO2 35.0 mmol/L (21-32)
[2025-05-21 07:31] LABS: CREATININE 0.27 mg/dL (0.55-1.3); SGOT/AST 25.0 U/L (5-34); SGPT/ALT 44.0 U/L (0-55)
[2025-05-21 07:45] LABS: ALK PHOS 62.0 U/L (40-150)
[2025-05-21] MEDS: POTASSIUM PHOSPHATE 30 MM in SODIUM CHLORIDE 250 ML IVPB ONE (09:45)
[2025-05-21] MEDS: MAGNESIUM OXIDE 400 MG TABLET (FP) GT ONE (09:47)
[2025-05-21] MEDS ORDERED: ESCITALOPRAM OXALATE 10 MG TABLET NGT SCH (11:05)
[2025-05-21] MEDS ORDERED: ROFLUMILAST 500 MCG TABLET NGT SCH (11:05)
[2025-05-21] MEDS: GABAPENTIN 250 MG/5 ML ORAL SOLUTION, 470 ML BOTTLE NGT SCH (13:17)
[2025-05-21] MEDS: AMINO ACIDS/PROTEIN HYDROLYS 30 ML LIQUID.PKT NGT SCH (16:54)
[2025-05-21] MEDS: ATORVASTATIN CA 80 MG TABLET (FP) PO SCH (22:00)
[2025-05-22] MEDS: LEVOTHYROXINE NA 25 MCG TABLET (FP) NGT SCH (06:01)
[2025-05-22 07:14] LABS: MCHC 31.6 g/dl (32.3-36.5); MEAN CELL VOLUME 95.5 fl (79.0-92.2); MEAN PLT VOLUME 11.0 fl (9.4-12.4); RDW 16.0 % (12.2-16.1)
[2025-05-22 07:16] LABS: GLUCOSE,RANDOM 151.0 mg/dL (74-106); TOT PROT 4.4 g/dl (6.4-8.2)
[2025-05-22 07:17] LABS: CO2 37.0 mmol/L (21-32)
[2025-05-22 07:22] LABS: CREATININE 0.25 mg/dL (0.55-1.3); SGOT/AST 29.0 U/L (5-34); SGPT/ALT 28.0 U/L (0-55)
[2025-05-22 07:39] LABS: ALK PHOS 64.0 U/L (40-150)
[2025-05-22] MEDS: POLYETHYLENE GLYCOL (HEALTHYLAX) 3350 17 GM PACKET NGT SCH (09:21)
[2025-05-22] MEDS: ESCITALOPRAM OXALATE 5 MG/5 ML NGT SCH (09:21)
[2025-05-22] MEDS: DOCUSATE NA 100 MG/10 ML UNIT-DOSE CUPS NGT SCH (21:02)
[2025-05-23 06:13] LABS: ARTERIAL BLD GAS O2 SATURATION 96.7 % (95-98); ARTERIAL BLOOD GAS BASE EXCESS 12.2 mmol/L (-2-2); ARTERIAL BLOOD GAS PCO2 48.90 mmHg (35-45); ARTERIAL BLOOD GAS PO2 81.7 mmHg (80-100); BG HCT 28.0 % (35.4-49)
[2025-05-23 06:14] LABS: ALLENS TEST POSITIVE; VENT MODE A/C; VENT RATE 14
[2025-05-23 06:41] LABS: MCHC 31.9 g/dl (32.3-36.5); MEAN CELL VOLUME 97.5 fl (79.0-92.2); MEAN PLT VOLUME 10.8 fl (9.4-12.4); RDW 16.5 % (12.2-16.1)
[2025-05-23 06:50] LABS: GLUCOSE,RANDOM 139.0 mg/dL (74-106)
[2025-05-23 06:51] LABS: TOT PROT 4.5 g/dl (6.4-8.2)
[2025-05-23 06:52] LABS: CO2 38.0 mmol/L (21-32)
[2025-05-23 06:56] LABS: CREATININE 0.24 mg/dL (0.55-1.3); SGOT/AST 37.0 U/L (5-34); SGPT/ALT 30.0 U/L (0-55)
[2025-05-23 07:25] LABS: ALK PHOS 64.0 U/L (40-150)
[2025-05-23] MEDS: POTASSIUM PHOSPHATE 15 MM in SODIUM CHLORIDE 100 ML IVPB ONE (09:15)
[2025-05-23] MEDS: SODIUM CHLORIDE 1,000 ML IV STA (11:03)
[2025-05-24 05:27] LABS: ARTERIAL BLD GAS O2 SATURATION 95.8 % (95-98); ARTERIAL BLOOD GAS BASE EXCESS 5.9 mmol/L (-2-2); ARTERIAL BLOOD GAS PCO2 50.10 mmHg (35-45); ARTERIAL BLOOD GAS PO2 80.1 mmHg (80-100); BG HCT 32.0 % (35.4-49); O2 CONTENT 1.44 % vol
[2025-05-24] MEDS ORDERED: FUROSEMIDE 40 MG/4 ML INJECTABLE VIAL ONE (05:34)
[2025-05-24 05:36] LABS: ALLENS TEST POSITIVE; VENT MODE A/C; VENT RATE 16
[2025-05-24] MEDS: FUROSEMIDE 40 MG/4 ML INJECTABLE VIAL IVPUSH ONE (05:37)
[2025-05-24 06:43] LABS: MCHC 31.4 g/dl (32.3-36.5); MEAN CELL VOLUME 98.2 fl (79.0-92.2); MEAN PLT VOLUME 10.6 fl (9.4-12.4); RDW 16.7 % (12.2-16.1)
[2025-05-24 07:06] LABS: GLUCOSE,RANDOM 142.0 mg/dL (74-106)
[2025-05-24 07:07] LABS: TOT PROT 4.5 g/dl (6.4-8.2)
[2025-05-24 07:08] LABS: CO2 35.0 mmol/L (21-32)
[2025-05-24 07:12] LABS: CREATININE 0.19 mg/dL (0.55-1.3); SGOT/AST 30.0 U/L (5-34); SGPT/ALT 38.0 U/L (0-55)
[2025-05-24 07:17] LABS: ALK PHOS 65.0 U/L (40-150)
[2025-05-24] MEDS ORDERED: ALBUTEROL SO4 2.5/IPRATROPIUM 0.5 INH SOL 3 ML VIAL.NEB. NEB SCH (07:45)
[2025-05-24] MEDS ORDERED: SODIUM CHLORIDE 1,000 ML IV STA (11:53)
[2025-05-24] MEDS: SODIUM CHLORIDE 500 ML IV STA (12:55)
[2025-05-25 07:00] LABS: MCHC 31.2 g/dl (32.3-36.5); MEAN CELL VOLUME 98.9 fl (79.0-92.2); MEAN PLT VOLUME 10.9 fl (9.4-12.4); RDW 16.9 % (12.2-16.1)
[2025-05-25 07:28] LABS: GLUCOSE,RANDOM 147.0 mg/dL (74-106); TOT PROT 4.3 g/dl (6.4-8.2)
[2025-05-25 07:29] LABS: CO2 38.0 mmol/L (21-32)
[2025-05-25 07:34] LABS: CREATININE 0.18 mg/dL (0.55-1.3); SGOT/AST 28.0 U/L (5-34); SGPT/ALT 30.0 U/L (0-55)
[2025-05-25 07:44] LABS: ALK PHOS 62.0 U/L (40-150)
[2025-05-25] MEDS: ALBUTEROL SO4 2.5/IPRATROPIUM 0.5 INH SOL 3 ML VIAL.NEB. NEB SCH (09:24)
[2025-05-25] MEDS: SODIUM CHLORIDE 1,000 ML IV STA (18:06)
[2025-05-25] MEDS: MUPIROCIN 2% TOPICAL OINTMENT FOR DECOLONIZATION NS SCH (21:52)
[2025-05-25] MEDS: FENTANYL NS IVPB 500 MCG/100 ML BAG IVPB SCH (21:59)
[2025-05-25] MEDS: NOREPINEPHRINE 0.9 % NACL 8 MG/250 ML BAG IVPB SCH (23:32)
[2025-05-26 07:23] LABS: MCHC 30.5 g/dl (32.3-36.5); MEAN CELL VOLUME 100.0 fl (79.0-92.2); MEAN PLT VOLUME 10.6 fl (9.4-12.4); RDW 17.4 % (12.2-16.1)
[2025-05-26 07:35] LABS: TOT PROT 4.3 g/dl (6.4-8.2)
[2025-05-26 07:36] LABS: CO2 36.0 mmol/L (21-32)
[2025-05-26 07:40] LABS: CREATININE 0.22 mg/dL (0.55-1.3); SGOT/AST 25.0 U/L (5-34); SGPT/ALT 32.0 U/L (0-55)
[2025-05-26 07:44] LABS: GLUCOSE,RANDOM 161.0 mg/dL (74-106)
[2025-05-26 08:01] LABS: ALK PHOS 68.0 U/L (40-150)
[2025-05-26] MEDS: POTASSIUM PHOSPHATE 15 MM in SODIUM CHLORIDE 100 ML IVPB ONE (09:30)
[2025-05-26] MEDS: ACETAMINOPHEN 1000 MG/100 ML BAG IVPB PRN (17:48)
[2025-05-26] MEDS: methylPREDNISolone NA SUCC 40 MG/1 ML VIAL IVPUSH SCH (21:52)
[2025-05-27] MEDS: CALCIUM GLUCONATE IN NACL 1 GM/50 ML BAG IVPB SCH (02:17)
[2025-05-27 07:10] LABS: MCHC 31.3 g/dl (32.3-36.5); MEAN CELL VOLUME 98.9 fl (79.0-92.2); MEAN PLT VOLUME 10.6 fl (9.4-12.4); RDW 17.8 % (12.2-16.1)
[2025-05-27 07:31] LABS: GLUCOSE,RANDOM 177.0 mg/dL (74-106); TOT PROT 4.4 g/dl (6.4-8.2)
[2025-05-27 07:32] LABS: CO2 37.0 mmol/L (21-32)
[2025-05-27 07:36] LABS: SGPT/ALT 38.0 U/L (0-55)
[2025-05-27 07:37] LABS: CREATININE 0.22 mg/dL (0.55-1.3); SGOT/AST 20.0 U/L (5-34)
[2025-05-27 07:50] LABS: ALK PHOS 67.0 U/L (40-150)
[2025-05-27] MEDS: POTASSIUM PHOSPHATE 30 MM in SODIUM CHLORIDE 250 ML IVPB ONE (10:18)
[2025-05-28 05:59] LABS: ARTERIAL BLD GAS O2 SATURATION 96.5 % (95-98); ARTERIAL BLOOD GAS BASE EXCESS 11.3 mmol/L (-2-2); ARTERIAL BLOOD GAS PCO2 60.80 mmHg (35-45); ARTERIAL BLOOD GAS PO2 87.8 mmHg (80-100); BG HCT 28.0 % (35.4-49); O2 CONTENT 1.30 % vol
[2025-05-28 06:05] LABS: ALLENS TEST POSITIVE; VENT MODE A/C; VENT RATE 14
[2025-05-28 07:34] LABS: IMMATURE PLATELET FRACTION # 6.60 x10^3/uL; MCHC 30.7 g/dl (32.3-36.5); MEAN CELL VOLUME 100.4 fl (79.0-92.2); MEAN PLT VOLUME 10.7 fl (9.4-12.4); RDW 18.2 % (12.2-16.1)
[2025-05-28 07:50] LABS: GLUCOSE,RANDOM 146.0 mg/dL (74-106); TOT PROT 4.1 g/dl (6.4-8.2)
[2025-05-28 07:51] LABS: CO2 34.0 mmol/L (21-32)
[2025-05-28 07:55] LABS: ALK PHOS 64.0 U/L (40-150)
[2025-05-28 07:56] LABS: CREATININE 0.24 mg/dL (0.55-1.3); LDL CHOLESTEROL (ONLY SJRH) 34.0 mg/dL (5-100); SGOT/AST 20.0 U/L (5-34); SGPT/ALT 43.0 U/L (0-55)
[2025-05-29 07:01] LABS: RDW 18.6 % (12.2-16.1)
[2025-05-29 07:03] LABS: IMMATURE PLATELET FRACTION # 6.90 x10^3/uL; MCHC 31.4 g/dl (32.3-36.5); MEAN CELL VOLUME 101.7 fl (79.0-92.2); MEAN PLT VOLUME 10.8 fl (9.4-12.4)
[2025-05-29 07:34] LABS: GLUCOSE,RANDOM 133.0 mg/dL (74-106)
[2025-05-29 07:35] LABS: TOT PROT 4.4 g/dl (6.4-8.2)
[2025-05-29 07:36] LABS: CO2 41.0 mmol/L (21-32)
[2025-05-29 07:40] LABS: CREATININE 0.19 mg/dL (0.55-1.3); SGOT/AST 20.0 U/L (5-34); SGPT/ALT 44.0 U/L (0-55)
[2025-05-29 07:43] LABS: ALK PHOS 72.0 U/L (40-150)
[2025-05-29] MEDS: SENNOSIDES 8.8 MG/5 ML SYRUP NGT ONE (13:56)
[2025-05-30 06:43] LABS: INR 1.19 (0.83-1.09); PROTHROMBIN TIME (PATIENT) 13.1 SEC (9.7-13.0)
[2025-05-30 06:47] LABS: MEAN CELL VOLUME 100.9 fl (79.0-92.2)
[2025-05-30 06:49] LABS: IMMATURE PLATELET FRACTION # 5.30 x10^3/uL; MCHC 30.8 g/dl (32.3-36.5); MEAN PLT VOLUME 10.6 fl (9.4-12.4); RDW 18.6 % (12.2-16.1)
[2025-05-30 07:02] LABS: GLUCOSE,RANDOM 154.0 mg/dL (74-106); TOT PROT 4.2 g/dl (6.4-8.2)
[2025-05-30 07:03] LABS: CO2 39.0 mmol/L (21-32)
[2025-05-30 07:08] LABS: SGOT/AST 19.0 U/L (5-34); SGPT/ALT 32.0 U/L (0-55)
[2025-05-30 07:14] LABS: ALK PHOS 72.0 U/L (40-150); CREATININE 0.15 mg/dL (0.55-1.3)
[2025-05-30] MEDS: POTASSIUM PHOSPHATE 30 MM in DEXTROSE 5%-WATER - 250 ML IVPB ONE (10:02)
[2025-05-30] MEDS: methylPREDNISolone NA SUCC 40 MG/1 ML VIAL IVPUSH SCH (10:02)
[2025-05-30] MEDS ORDERED: ENOXAPARIN NA (PORCINE) 40 MG/0.4 ML DISP.SYRIN SQ ONE (12:15)
[2025-05-30] MEDS: ENOXAPARIN NA (PORCINE) 40 MG/0.4 ML DISP.SYRIN SQ ONE (13:19)
[2025-05-30] MEDS: FUROSEMIDE 40 MG/4 ML INJECTABLE VIAL IVPUSH ONE (17:23)
[2025-05-31 07:09] LABS: MONOCYTE % 4.4 % (5.3-12.2); RDW 18.8 % (12.2-16.1)
[2025-05-31 07:11] LABS: ABSOLUTE IMMATURE GRANULOCYTES 0.22 x10^3/uL (0.0-0.031); BASOPHILS # 0.02 x10^3/uL (0.01-0.08); EOSINOPHIL % 0.3 % (0.8-7.0); EOSINOPHILS # 0.05 x10^3/uL (0.04-0.54); IMMATURE PLATELET FRACTION # 5.60 x10^3/uL; MCHC 30.7 g/dl (32.3-36.5); MEAN CELL VOLUME 100.9 fl (79.0-92.2); MEAN PLT VOLUME 10.7 fl (9.4-12.4); MONOCYTE # 0.64 x10^3/uL (0.30-0.82)
[2025-05-31 07:20] LABS: GLUCOSE,RANDOM 105.0 mg/dL (74-106); TOT PROT 4.2 g/dl (6.4-8.2)
[2025-05-31 07:21] LABS: CO2 41.0 mmol/L (21-32)
[2025-05-31 07:24] LABS: ALK PHOS 67.0 U/L (40-150)
[2025-05-31 07:26] LABS: CREATININE 0.2 mg/dL (0.55-1.3); SGOT/AST 18.0 U/L (5-34); SGPT/ALT 34.0 U/L (0-55)
[2025-05-31 07:27] LABS: ARTERIAL BLD GAS O2 SATURATION 95.8 % (95-98); ARTERIAL BLOOD GAS BASE EXCESS 18.5 mmol/L (-2-2); ARTERIAL BLOOD GAS PO2 85.8 mmHg (80-100); BG HCT 26.0 % (35.4-49); O2 CONTENT 1.22 % vol
[2025-05-31 07:28] LABS: ALLENS TEST POSITIVE; VENT MODE A/C; VENT RATE 12
[2025-05-31 07:29] LABS: ARTERIAL BLOOD GAS PCO2 79.20 mmHg (35-45)
[2025-05-31] MEDS: PANTOPRAZOLE SODIUM 40 MG VIAL IVPUSH SCH (10:39)
[2025-05-31] MEDS: FUROSEMIDE 40 MG/4 ML INJECTABLE VIAL IVPUSH ONE (15:56)
[2025-05-31 18:18] LABS: IMMATURE PLATELET FRACTION # 4.80 x10^3/uL; MCHC 32.4 g/dl (32.3-36.5); MEAN CELL VOLUME 98.2 fl (79.0-92.2); MEAN PLT VOLUME 11.0 fl (9.4-12.4); RDW 18.4 % (12.2-16.1)
[2025-06-01 06:49] LABS: RDW 18.8 % (12.2-16.1)
[2025-06-01 06:50] LABS: IMMATURE PLATELET FRACTION # 5.90 x10^3/uL; MCHC 32.5 g/dl (32.3-36.5); MEAN CELL VOLUME 99.3 fl (79.0-92.2); MEAN PLT VOLUME 11.0 fl (9.4-12.4)
[2025-06-01 07:03] LABS: GLUCOSE,RANDOM 131.0 mg/dL (74-106); TOT PROT 4.5 g/dl (6.4-8.2)
[2025-06-01 07:04] LABS: CO2 44.0 mmol/L (21-32)
[2025-06-01 07:08] LABS: SGOT/AST 24.0 U/L (5-34); SGPT/ALT 35.0 U/L (0-55)
[2025-06-01 07:09] LABS: CREATININE 0.21 mg/dL (0.55-1.3)
[2025-06-01 07:13] LABS: ALK PHOS 90.0 U/L (40-150)
[2025-06-01] MEDS: POTASSIUM PHOSPHATE 30 MM in DEXTROSE 5%-WATER - 250 ML IVPB ONE (10:09)
[2025-06-01] MEDS ORDERED: MIDAZOLAM 100 MG in SODIUM CHLORIDE 100 ML IVPB SCH (11:00)
[2025-06-01] MEDS: FUROSEMIDE INJECTION 100 MG in SODIUM CHLORIDE 40 ML IVPB SCH (11:17)
[2025-06-01] MEDS: MIDAZOLAM IN 0.9 % SOD.CHLORID 100 MG/100 ML PLAST..BAG IVPB SCH (11:19)
[2025-06-01] MEDS: KCL 10 MEQ IVPB 10 MEQ/100 ML INFUS.BAG IVPB SCH (14:37)
[2025-06-01 20:27] LABS: EPI CELLS 6 /uL (0-25.1); HYALINE CASTS 3 /uL (0-3.1); URINE APPEARANCE CLEAR; URINE BACTERIA 6 /uL (0-1359); URINE BILIRUBIN NEGATIVE (NEGATIVE); URINE COLOR YELLOW; URINE GLUCOSE (UA) NEGATIVE (NEGATIVE); URINE KETONE NEGATIVE (NEGATIVE); URINE LEUK ESTERASE NEGATIVE (NEGATIVE); URINE NITRITE NEGATIVE (NEGATIVE); URINE PROTEIN TRACE (NEGATIVE); URINE RBC 86 /uL (0-23.9); URINE UROBILINOGEN 1.0 mg/dL (0.2-1.0); URINE WBC 50 /uL (0-25.8)
[2025-06-01 20:41] LABS: GLUCOSE,RANDOM 180.0 mg/dL (74-106)
[2025-06-01 20:42] LABS: TOT PROT 4.3 g/dl (6.4-8.2)
[2025-06-01 20:43] LABS: CO2 42.0 mmol/L (21-32)
[2025-06-01 20:47] LABS: CREATININE 0.23 mg/dL (0.55-1.3); SGOT/AST 23.0 U/L (5-34); SGPT/ALT 20.0 U/L (0-55)
[2025-06-01 21:11] LABS: ALK PHOS 70.0 U/L (40-150)
[2025-06-02 07:17] LABS: RDW 18.3 % (12.2-16.1)
[2025-06-02 07:19] LABS: IMMATURE PLATELET FRACTION # 5.90 x10^3/uL; MCHC 32.0 g/dl (32.3-36.5); MEAN CELL VOLUME 99.2 fl (79.0-92.2); MEAN PLT VOLUME 10.5 fl (9.4-12.4)
[2025-06-02 07:45] LABS: GLUCOSE,RANDOM 99 mg/dL (74-106); TOT PROT 4.4 g/dl (6.4-8.2)
[2025-06-02 07:46] LABS: CO2 46 mmol/L (21-32)
[2025-06-02 07:51] LABS: CREATININE 0.24 mg/dL (0.55-1.3); SGOT/AST 22 U/L (5-34); SGPT/ALT 39 U/L (0-55)
[2025-06-02 07:58] LABS: ALK PHOS 62 U/L (40-150)
[2025-06-02] MEDS ORDERED: POTASSIUM CHLORIDE ORAL LIQUID 20 MEQ/15 ML PO SCH (09:00)
[2025-06-02] MEDS: KCL 10 MEQ IVPB 10 MEQ/100 ML INFUS.BAG IVPB SCH (09:20)
[2025-06-02] MEDS: POTASSIUM CHLORIDE ORAL LIQUID 20 MEQ/15 ML PO SCH (09:20)
[2025-06-02] MEDS: KCL 20 MEQ PREMIX BAG 20 MEQ/100 ML INFUS.BAG IVPB SCH (11:43)
[2025-06-02 18:56] LABS: GLUCOSE,RANDOM 144 mg/dL (74-106)
[2025-06-02 18:58] LABS: CO2 40 mmol/L (21-32)
[2025-06-02 19:02] LABS: CREATININE 0.22 mg/dL (0.55-1.3)
[2025-06-02] MEDS: CALCIUM GLUCONATE IN NACL 1 GM/50 ML BAG IVPB SCH (19:49)
[2025-06-03 06:42] LABS: IMMATURE PLATELET FRACTION # 5.60 x10^3/uL; MCHC 30.8 g/dl (32.3-36.5); MEAN CELL VOLUME 101.3 fl (79.0-92.2); MEAN PLT VOLUME 10.5 fl (9.4-12.4); RDW 17.9 % (12.2-16.1)
[2025-06-03 07:26] LABS: GLUCOSE,RANDOM 128.0 mg/dL (74-106); TOT PROT 4.5 g/dl (6.4-8.2)
[2025-06-03 07:27] LABS: CO2 43.0 mmol/L (21-32)
[2025-06-03 07:31] LABS: SGOT/AST 15.0 U/L (5-34); SGPT/ALT 19.0 U/L (0-55)
[2025-06-03 07:32] LABS: CREATININE 0.26 mg/dL (0.55-1.3)
[2025-06-03 07:36] LABS: ALK PHOS 65.0 U/L (40-150)
[2025-06-03] MEDS: POTASSIUM PHOSPHATE 30 MM in DEXTROSE 5%-WATER - 500 ML IVPB ONE (09:20)
[2025-06-03 11:48] LABS: ALLENS TEST POSITIVE; ARTERIAL BLD GAS O2 SATURATION 89.3 % (95-98); ARTERIAL BLOOD GAS BASE EXCESS 14.8 mmol/L (-2-2); ARTERIAL BLOOD GAS PO2 64.9 mmHg (80-100); BG HCT 51.0 % (35.4-49); O2 CONTENT 2.16 % vol; VENT MODE A/C
[2025-06-03 11:49] LABS: VENT RATE 15
[2025-06-03 11:52] LABS: ARTERIAL BLOOD GAS PCO2 96.20 mmHg (35-45)
[2025-06-03 19:08] LABS: ARTERIAL BLD GAS O2 SATURATION 93.9 % (95-98); ARTERIAL BLOOD GAS BASE EXCESS 17.4 mmol/L (-2-2); ARTERIAL BLOOD GAS PO2 76.5 mmHg (80-100); BG HCT 31.0 % (35.4-49); O2 CONTENT 1.41 % vol
[2025-06-03 19:10] LABS: VENT MODE A/C; VENT RATE 17
[2025-06-03 19:13] LABS: ARTERIAL BLOOD GAS PCO2 84.30 mmHg (35-45)
[2025-06-04 06:37] LABS: IMMATURE PLATELET FRACTION # 7.40 x10^3/uL; MCHC 30.1 g/dl (32.3-36.5); MEAN CELL VOLUME 102.2 fl (79.0-92.2); MEAN PLT VOLUME 10.3 fl (9.4-12.4); RDW 17.8 % (12.2-16.1)
[2025-06-04 06:57] LABS: GLUCOSE,RANDOM 170.0 mg/dL (74-106); TOT PROT 4.5 g/dl (6.4-8.2)
[2025-06-04 06:58] LABS: CO2 44.0 mmol/L (21-32)
[2025-06-04 07:02] LABS: SGPT/ALT 16.0 U/L (0-55)
[2025-06-04 07:03] LABS: CREATININE 0.27 mg/dL (0.55-1.3); SGOT/AST 16.0 U/L (5-34)
[2025-06-04 07:13] LABS: ALK PHOS 65.0 U/L (40-150)
[2025-06-04 21:25] LABS: GLUCOSE,RANDOM 145.0 mg/dL (74-106); TOT PROT 4.7 g/dl (6.4-8.2)
[2025-06-04 21:26] LABS: CO2 49.0 mmol/L (21-32)
[2025-06-04 21:31] LABS: CREATININE 0.24 mg/dL (0.55-1.3); SGOT/AST 14.0 U/L (5-34); SGPT/ALT 15.0 U/L (0-55)
[2025-06-04 21:37] LABS: ALK PHOS 60.0 U/L (40-150)
[2025-06-04] MEDS: KCL 10 MEQ IVPB 10 MEQ/100 ML INFUS.BAG IVPB SCH (21:37)
[2025-06-05 04:03] VITALS: BP 82/58; PULSE 103; RESP 17; TEMP 99.3
== END 2025-06-05 05:58 | disposition expired | DRG 130 ==
LOC: JER 03:36 → JERBED 05:44 → J4W 21:06 → OBSVTOIN 05-10 10:31 → JICU 05-19 15:13
PROVIDERS: ADMIT Internal Medicine; ATTEND Internal Medicine
PROC: 0BH17EZ Insertion of Endotracheal Airway into Trachea, Via Natural or Artificial Opening (ICD-10-PCS; principal; 2025-05-19)
PROC: 5A1955Z Respiratory Ventilation, Greater than 96 Consecutive Hours (ICD-10-PCS; 2025-05-19)
PROC: 05HM33Z Insertion of Infusion Device into Right Internal Jugular Vein, Percutaneous Approach (ICD-10-PCS; 2025-05-23)
PROC: B543ZZA Ultrasonography of Right Jugular Veins, Guidance (ICD-10-PCS; 2025-05-23)
PROC: 05HN33Z Insertion of Infusion Device into Left Internal Jugular Vein, Percutaneous Approach (ICD-10-PCS; 2025-05-31)
PROC: B544ZZA Ultrasonography of Left Jugular Veins, Guidance (ICD-10-PCS; 2025-05-31)
DX: J96.21 Acute and chronic respiratory failure with hypoxia (principal); J96.22 Acute and chronic respiratory failure with hypercapnia; J15.69 Pneumonia due to other Gram-negative bacteria; R57.9 Shock, unspecified; G20.A1 Parkinson's disease without dyskinesia, without mention of fluctuations; E44.0 Moderate protein-calorie malnutrition; F20.9 Schizophrenia, unspecified; E03.9 Hypothyroidism, unspecified; R16.0 Hepatomegaly, not elsewhere classified; F31.9 Bipolar disorder, unspecified; J21.1 Acute bronchiolitis due to human metapneumovirus; J44.0 Chronic obstructive pulmonary disease with (acute) lower respiratory infection; J44.1 Chronic obstructive pulmonary disease with (acute) exacerbation; N40.0 Benign prostatic hyperplasia without lower urinary tract symptoms; D72.829 Elevated white blood cell count, unspecified; B97.4 Respiratory syncytial virus as the cause of diseases classified elsewhere; D64.9 Anemia, unspecified; K57.90 Diverticulosis of intestine, part unspecified, without perforation or abscess without bleeding; Z68.29 Body mass index [BMI] 29.0-29.9, adult; Z99.81 Dependence on supplemental oxygen
CPT/HCPCS: 31500; 36415; 36430; 36600; 71045-TC-FY; 74018-TC-FY; 80048; 80053; 80061; 81003; 82272; 82306; 82308; 82803; 82962; 83605; 83690; 83735; 83880; 84100; 84484; 85025; 85027; 85610; 85730; 86140; 86803; 86850; 86900; 86901; 86922; 87040; 87070; 87077; 87086; 87205; 87389; 87481; 87637-QW; 87807; 87899; 88300-TC; 93005; 93010; 93306-TC; 94002; 94640; 94660; 97116-GP; 97161-GP; 99285-25; G0378; J3490; P9038; P9058